=== PATIENT | male | born 1945 | race Caucasian/White ===

== ENCOUNTER → 2020-06-19 08:55 | Outpatient (BNVA) | payer MEDICARE, SELFPAY | PROVIDERS: PCP Family Medicine; Referring Provider Family Medicine; Visit Provider Nurse Practitioner Family | DX: G47.33 Obstructive sleep apnea (adult) (pediatric) (principal); E66.9 Obesity, unspecified; E11.9 Type 2 diabetes mellitus without complications; E78.5 Hyperlipidemia, unspecified; F41.8 Other specified anxiety disorders; F17.200 Nicotine dependence, unspecified, uncomplicated; Z88.0 Allergy status to penicillin; Z86.19 Personal history of other infectious and parasitic diseases; Z79.82 Long term (current) use of aspirin; Z79.84 Long term (current) use of oral hypoglycemic drugs; Z79.899 Other long term (current) drug therapy | CPT/HCPCS: 99202; Q3014 ==

== ENCOUNTER 2020-08-27 06:50 | Day surgery (SDC) | payer MEDICARE, SELFPAY ==
[2020-08-21 15:58] VITALS: BMI 39.0
--- NOTE | 2020-08-24 10:57 | HO.ANESPROP2 ---
Documented by User: Laurie Clarita 08/24/20 11:06 HPI - Anesthesia Eval Consult details Narrative: 74yo M for Blepharoplasty,bilateral upper lids No prev cataract PCP cleared [facility] Past Medical History Medical History Allergic rhinitis Anxiety Arthritis Asthma Depression Diabetes mellitus Elevated cholesterol History of back pain History of COVID-19 History of fatty infiltration of liver HTN (hypertension) Obesity SHANON (obstructive sleep apnea) Seasonal allergies Smoker Surgical History Surgical History History of cystoscopy History of left cataract extraction Hx of colonoscopy Hx of umbilical hernia repair Hx of ventral hernia repair Social History Social History Are you a primary career development associate to a significant other at home: No Do you presently have visiting nurse or other home services: Yes Smoking Status: Current every day smoker Packs Per Day: 0.5 Cigarettes Per Day: 10.0 Years Smoked: 60 Smoked in Last 30 Days: Yes Patient Interested in Nicotine Replacement: No Patient Given Instructions on How to Stop Smoking: Yes Date Education Initiated: 08/21/20 Use of substances other than those prescribed or required for medical reasons: No Have you been hit, kicked, punched, or otherwise hurt by someone within the past year? If so, by whom?: No Advance Directives: No Advance Directives Information Provided: No Advance Directives on File: No Recently lost weight without trying: No Meds Allergies Allergy/AdvReac Type Severity Reaction Status Date / Time Penicillins Allergy Intermediate RASH Verified 08/27/20 09:29 Home Medications Medication Instructions Recorded Confirmed Type albuterol sulfate 90 mcg/actuation 2 puff INHALATION Q4-6H PRN 06/19/20 08/21/20 History aerosol inhaler ammonium lactate 12 % topical cream 1 applic TOPICAL DAILY 06/19/20 08/21/20 History aspirin 81 mg tablet,delayed 81 mg PO DAILY 06/19/20 08/21/20 History release carvedilol 6.25 mg tablet 6.25 mg PO BID 06/19/20 08/21/20 History cholecalciferol (vitamin D3) 25 25 mcg PO DAILY 06/19/20 08/21/20 History mcg (1,000 unit) capsule diclofenac sodium 1 % topical gel 2 g TOPICAL QID 06/19/20 08/21/20 History diltiazem HCl 300 mg 300 mg PO DAILY 06/19/20 08/21/20 History capsule,extended release 24 hr doxazosin 8 mg tablet 8 mg PO BEDTIME 06/19/20 08/21/20 History fluticasone 250 mcg-salmeterol 50 1 inh INHALATION BID 06/19/20 08/21/20 History mcg/dose blistr powdr for inhalation hydralazine 50 mg tablet 50 mg PO TID 06/19/20 08/21/20 History latanoprost 0.005 % eye drops 1 drp OPHTHALMIC (EYE) QPM 06/19/20 08/21/20 History loratadine 10 mg tablet 10 mg PO DAILY 06/19/20 08/21/20 History metformin 500 mg tablet 500 mg PO DAILY 06/19/20 06/19/20 History metformin 500 mg tablet,extended 500 mg PO QPM 06/19/20 06/19/20 History release 24 hr Exam Exam Date and Time: August 24, 2020 1057 Height,Weight and Vital Signs: Height 5 ft 6 in Weight 109.769 kg Assessment and Plan Assessment Anesthesia Assessment: Chart Reviewed Documented by User: Esha Barger 08/27/20 09:45 PMFSH Past Medical History Medical History Allergic rhinitis Anxiety Arthritis Asthma Depression Diabetes mellitus Elevated cholesterol History of back pain History of COVID-19 History of fatty infiltration of liver HTN (hypertension) Obesity SHANON (obstructive sleep apnea) Seasonal allergies Smoker Surgical History Surgical History History of cystoscopy History of left cataract extraction Hx of colonoscopy Hx of umbilical hernia repair Hx of ventral hernia repair Social History Social History Are you a primary career development associate to a significant other at home: No Do you presently have visiting nurse or other home services: Yes Smoking Status: Current every day smoker Packs Per Day: 0.5 Cigarettes Per Day: 10.0 Years Smoked: 60 Smoked in Last 30 Days: Yes Patient Interested in Nicotine Replacement: No Patient Given Instructions on How to Stop Smoking: Yes Date Education Initiated: 08/21/20 Use of substances other than those prescribed or required for medical reasons: No Have you been hit, kicked, punched, or otherwise hurt by someone within the past year? If so, by whom?: No Advance Directives: No Advance Directives Information Provided: No Advance Directives on File: No Recently lost weight without trying: No Meds Allergies Allergy/AdvReac Type Severity Reaction Status Date / Time Penicillins Allergy Intermediate RASH Verified 08/27/20 09:29 Home Medications Medication Instructions Recorded Confirmed Type albuterol sulfate 90 mcg/actuation 2 puff INHALATION Q4-6H PRN 06/19/20 08/21/20 History aerosol inhaler ammonium lactate 12 % topical cream 1 applic TOPICAL DAILY 06/19/20 08/21/20 History aspirin 81 mg tablet,delayed 81 mg PO DAILY 06/19/20 08/21/20 History release carvedilol 6.25 mg tablet 6.25 mg PO BID 06/19/20 08/21/20 History cholecalciferol (vitamin D3) 25 25 mcg PO DAILY 06/19/20 08/21/20 History mcg (1,000 unit) capsule diclofenac sodium 1 % topical gel 2 g TOPICAL QID 06/19/20 08/21/20 History diltiazem HCl 300 mg 300 mg PO DAILY 06/19/20 08/21/20 History capsule,extended release 24 hr doxazosin 8 mg tablet 8 mg PO BEDTIME 06/19/20 08/21/20 History fluticasone 250 mcg-salmeterol 50 1 inh INHALATION BID 06/19/20 08/21/20 History mcg/dose blistr powdr for inhalation hydralazine 50 mg tablet 50 mg PO TID 06/19/20 08/21/20 History latanoprost 0.005 % eye drops 1 drp OPHTHALMIC (EYE) QPM 06/19/20 08/21/20 History loratadine 10 mg tablet 10 mg PO DAILY 06/19/20 08/21/20 History metformin 500 mg tablet 500 mg PO DAILY 06/19/20 06/19/20 History metformin 500 mg tablet,extended 500 mg PO QPM 06/19/20 06/19/20 History release 24 hr Exam Airway Mallampati Class: II TM Dist: >3cm Neck ROM: Full Partial: Upper Loose/Missing/Broken Teeth: No Heart: RRR Lungs: CTA Assessment and Plan Assessment Anesthesia Assessment: Anesthesia Plan Discussed and Chart Reviewed Final Anesthetic Review NPO: Yes ASA Class: III Final Preanesthetic Review: Meds/Allgs Chart Reviewed, Consent Obtained/Reviewed and Anes Risks/Benef Reviewed Patient Risk: Intermediate Procedure Risk: Low Anesthetic Plan Anesthetic Plan: MAC: Disposition: Standard PACU
--- NOTE | 2020-08-24 12:35 | MHC.SHP ---
Pre-Procedural Eval Section A The patient is an INPATIENT: No The History & Physical has been completed within 30 days and I have reviewed it.: Yes Section B Chief Complaint: dermatochalasis bilateral eye lids Allergies: Allergies Allergy/AdvReac Type Severity Reaction Status Date / Time Penicillins Allergy Intermediate RASH Unverified 08/21/20 10:28 Plan Diagnosis/Plan: Unchanged I have reviewed the history and physical and performed a pertinent physical examination on my patient. No changes have occurred unless specified.
[2020-08-27] MEDS: Lactated Ringers 500 ML 50 ML IV (09:30)
[2020-08-27 09:39] VITALS: BP 174/82; PULSE 60; RESP 16; TEMP 36.3; O2SAT 98
[2020-08-27 09:52] LABS: Glucose, Whole Blood 120 mg/dL (60-115)
[2020-08-27 11:30] VITALS: BP 170/84; PULSE 58; RESP 16; TEMP 36.1; O2SAT 97
--- NOTE | 2020-08-27 11:30 | HO.PNOPHT ---
Ophthalmology Procedure Procedure Date of Service: 08/27/20 Ophthalmology Viscoelastic: Not Applicable Ophthalmology Lenses: Not Applicable Procedure Notes: PREOPERATIVE DIAGNOSIS: Decreased visual field secondary to dermatochalasia POSTOPERATIVE DIAGNOSIS: Same PROCEDURE: Bilateral Blepharoplasty, upper eyelids SURGEON: Kobi Faulkner M.D. ANESTHESIA: Local with sedation ESTIMATED BLOOD LOSS: None COMPLICATIONS: None After obtaining informed consent, the patient was brought to the operating room and placed in supine position. After adequate sedation per Anesthesia, the eyes were prepped and draped in the usual sterile fashion. Attention was directed to the right eye where a double pinch test was completed to assure excess tissue was not removed from the upper lid. The margin was marked at the proposed incision sites. The left eye was done in a similar fashion. 2% Lidocaine with epinephrine was then instilled subcutaneously along the margin of the pre-marked skin incisions. #15 scalpel blade was then utilized to create the incisions. Using a combination of sharp and blunt dissection with Aj scissors, the epidermis was removed. Hemostasis was achieved with cautery. 6-0 plain suture was then utilized to close the incision site. Attention was directed to the left upper lid where subcutaneous 2% with Epinephrine Lidocaine was instilled along the pre-marked areas. A #15 scalpel blade was then utilized to create the incisions followed by sharp and blunt dissection with Aj scissors to remove the overlying epidermis. Hemostasis was achieved with cautery, followed by closure with 6-0 plain suture. The patient tolerated the procedure well. The patient will be followed up in the a.m. Topical antibiotic ointment was instilled over the incision sites and ice as tolerated for 48 hours.
[2020-08-27 11:45] VITALS: BP 151/84; PULSE 54; RESP 16; O2SAT 96
[2020-08-27 12:00] VITALS: BP 165/90; PULSE 57; RESP 16; TEMP 36.1; O2SAT 96
[2020-08-27] MEDS: Acetaminophen 325 MG TABLET 650 MG PO (12:06)
== END 2020-08-27 12:41 | disposition home or self-care (01) ==
PROVIDERS: PCP Family Medicine; Visit Provider Ophthalmology
PROC: (CPT 15823; principal; 2020-08-27 10:10)
DX: H02.834 Dermatochalasis of left upper eyelid (principal); H02.831 Dermatochalasis of right upper eyelid; H40.051 Ocular hypertension, right eye; H40.9 Unspecified glaucoma; Z83.511 Family history of glaucoma; I10 Essential (primary) hypertension; H35.031 Hypertensive retinopathy, right eye; Z96.1 Presence of intraocular lens; E11.9 Type 2 diabetes mellitus without complications; F17.200 Nicotine dependence, unspecified, uncomplicated; Z79.82 Long term (current) use of aspirin; Z79.84 Long term (current) use of oral hypoglycemic drugs; Z79.899 Other long term (current) drug therapy; Z88.0 Allergy status to penicillin
CPT/HCPCS: 15823; 82947; J3010

== ENCOUNTER 2020-09-17 11:21 | Outpatient (REF) | payer MEDICARE, SELFPAY ==
--- NOTE | 2020-09-17 12:22 | XR_ITS ---
EXAMINATION: XR LUMBOSACRAL SPINE WITH OBLIQUES CLINICAL INFORMATION: Low back pain COMPARISON: 05/26/2018 TECHNIQUE: AP, both oblique, and lateral views of the lumbar spine. Lateral view of the lumbosacral junction. FINDINGS: No acute fracture or traumatic malalignment. Vertebral body heights maintained. Minimal dextroconvex lumbar scoliosis, apex right at L2-L3. Endplate osteophytes present throughout the lumbar spine with mild loss of disc space height at L5-S1 and L3-L4. Moderate facet arthropathy at L4-L5 and L5-S1. Bilateral sacroiliac arthrosis. Paraspinal soft tissues unremarkable. XR/XR lumbar spine 4V min IMPRESSION: No acute fracture or traumatic malalignment. Lumbar spondylosis as described.
== END 2020-09-17 11:22 | disposition home or self-care (01) ==
LOC: HO.XRAY 11:21
PROVIDERS: PCP Family Medicine; Visit Provider Anesthesiology
DX: M54.5 Low back pain (principal); G58.8 Other specified mononeuropathies
CPT/HCPCS: 72110; 99212

== ENCOUNTER → 2020-10-02 19:21 | Outpatient (REF) | payer MEDICARE, SELFPAY | LOC: HO.SL 19:21 | PROVIDERS: PCP Family Medicine; Visit Provider Nurse Practitioner Family | DX: G47.33 Obstructive sleep apnea (adult) (pediatric) (principal); F41.9 Anxiety disorder, unspecified; I10 Essential (primary) hypertension | CPT/HCPCS: 95811 ==

== ENCOUNTER → 2020-10-23 10:49 | Outpatient (BNVA) | payer MEDICARE, SELFPAY | PROVIDERS: PCP Family Medicine; Visit Provider Nurse Practitioner Family ==

== ENCOUNTER → 2020-12-13 13:20 | Outpatient (BNVA) | payer MEDICARE, SELFPAY | PROVIDERS: PCP Family Medicine; Visit Provider Anesthesiology | DX: M54.5 Low back pain (principal); M47.816 Spondylosis without myelopathy or radiculopathy, lumbar region | CPT/HCPCS: 99212 ==

== ENCOUNTER 2020-12-21 14:00 | Outpatient (RCR) | payer MEDICARE, SELFPAY ==
--- NOTE | 2020-11-15 18:25 | MHC.PT.EP ---
[facility] [place] Office [place] Office [place] Office [address] Manuel Velásquez [address] [phone] F: [phone] F: [phone] F: [phone] F: [phone] Physical Therapy Plan of Care Date of Evaluation: 11/15/20 Date of Surgery: N/A Diagnosis: low back pain Assessment: With clarification part of pt's pain appears to be localized to the L flank. He does have a history of nephrolithiasis and may benefit from referral to spiral tube winder or diagnostic ultrasound to rule this out. pt also presents w/ abnormal and inconsistent neurological symptoms. When sitting w/ foot on the ground the pt's L LE will begin bouncing furiously and he is unable to stop it. pt had (-) clonus, (-) Babinski; however, w/ neurological testing his L hip and knee flex suddenly and rapidly w/ multiple attempts. pt may benefit from seeing neurologist to rule out potential degenerative neurological disease. pt presents to physical therapy with pain, decreased range of motion, decreased strength, impaired functional mobility, impaired postural awareness, and gait deviations. pt is a fair candidate for skilled PT due to age, potential remediation of impairments, typical disease/condition progression and prognosis, comorbidities, and motivation. pt would benefit from tailored strengthening and stretching exercise program, functional training, gait training, postural re-training, neuromuscular re-education, modalities as needed for pain, equipment safety demonstration. Frequency and Duration: The patient will be seen 2x/wk for 4 wks Short Term Goals: pt will be I w/ HEP to promote self-management of condition. pt will improve B hip ABD strength by 1 MMT grade to normalize gait pattern on even ground. Fci Goals: pt will report a statistically significant improvement in self-reported outcome measure, [place], to promote return to PLOF. pt will report <1/10 LBP and B hip pain w/ standing for >30 minutes to promote participation in ADLs. Treatment Plan: Modalities to reduce pain, spasms and effusion. Manual therapy to restore motion and function. Therapeutic exercise to improve strength and flexibility. Neuromuscular re-education for posture and balance. Therapeutic activities to return to functional activities of daily living. Electronically signed by: Adriana Pope PT, DPT Please sign and return to therapist. Thank you for your referral.
--- NOTE | 2020-12-21 14:59 | MHC.PT.DC ---
[facility] [place] Office [place] Office [place] Office [address] Manuel Velásquez [address] [phone] F: [phone] F: [phone] F: [phone] F: [phone] Physical Therapy Discharge Report Diagnosis: low back pain Date of Surgery: N/A Date of Evaluation: 11/15/20 Date of Discharge: 12/21/20 Treatments to Date: 8 Cancellations to Date: 0 No Shows to Date: 0 Discharge Status: Improved Function Independent with HEP Discharge Summary: The patient was reporting an overall improvement in his back pain; however, today his pain was exacerbated. He had poorer tolerance of today's visit compared to previous visits. Overall, he stated he feels his back pain is better and he can move around more. He is independent with his exercise program and is able to guide himself through it. He was given an updated handout and has the appropriate therabands to continue to maintain the gains he has made at home. He is discharged from this physical therapy plan of care at this time. Electronically signed by: Adriana Pope PT, DPT Please sign and return to therapist. Thank you for your referral.
== END 2020-12-21 15:00 | disposition other institution (70) ==
LOC: HO.PT 14:00
PROVIDERS: PCP Family Medicine; Visit Provider Anesthesiology
DX: M54.5 Low back pain (principal)
CPT/HCPCS: 97110; 97162; 97530

== ENCOUNTER 2021-01-15 10:41 | Outpatient (REF) | payer MEDICARE, SELFPAY ==
[2021-01-15 12:29] LABS: MANUAL DIFF FLAG NO
[2021-01-15 12:40] LABS: Basophils Percent Auto 0.4 % (0-2); Eosinophils Absolute Auto 0.4 X10*3/uL (0.0-0.4); Eosinophils Percent Auto 4.4 % (0-4); Hematocrit 45.2 % (42-52); Imm Gran Abs Auto 0.04 X10*3/uL (0.00-0.03); Imm Gran Pct Auto 0.4 % (0.0-0.4); Lymphocytes Absolute Auto 1.8 X10*3/uL (1.2-4.9); Lymphocytes Percent Auto 19.2 % (20-40); Mean Corpuscular HGB Conc 33.2 g/dl (31.0-36.0); Mean Corpuscular Hemoglobin 30.7 pg (27.0-33.0); Mean Corpuscular Volume 92.6 fL (80-98); Mean Platelet Volume 12.5 fL (9.4-12.4); Monocytes Absolute Auto 0.8 X10*3/uL (0.1-1.2); Monocytes Percent Auto 8.6 % (2-11); Neutrophils Absolute Auto 6.1 X10*3/uL (2.0-8.3); Platelet Count 156 X10*3/uL (160-400); Red Blood Count 4.88 X10*6/uL (4.60-5.80); Red Cell Distribution Width 13.6 % (11.0-16.0); White Blood Count 9.1 X10*3/uL (4.8-10.8)
[2021-01-15 13:21] LABS: Alanine Aminotransferase 16 U/L (0-40); Alkaline Phosphatase 74 U/L (39-117); Anion Gap 11 (12-20); Aspartate Amino Transferase 16 U/L (5-37); Bilirubin Total 0.7 mg/dL (0.0-1.0); Blood Urea Nitrogen 18 mg/dL (9-16); Calcium 9.1 mg/dL (8.4-10.2); Carbon Dioxide 27 mmol/L (22-29); Chloride 106 mmol/L (96-108); Estimated Glomerular Filt Rate > 60; Glucose Random 116 mg/dL (60-115); Iron 92 mcg/dL (45-160); Percent Iron Saturation 39 % (15-50); Sodium 140 mmol/L (135-145); Total Iron Binding Capacity 235 mcg/dL (228-428); Total Protein 6.5 g/dL (6.5-8.0); Unsaturated Iron Binding 143 ug/dL
[2021-01-15 13:31] LABS: Ferritin 174 ng/mL (20-250); TSH reflex Free T4 0.65 uIU/mL (0.32-4.0)
[2021-01-15 13:55] LABS: Folate 10.4 ng/mL (> or = 4.0); Vitamin B12 241 pg/mL (200-900)
[2021-01-17 19:06] LABS: Transferrin 197 mg/dL (188-341)
== END 2021-01-15 10:42 | disposition home or self-care (01) ==
LOC: HO.LAB 10:41
PROVIDERS: PCP Family Medicine; Visit Provider Nurse Practitioner Family
DX: F32.9 Major depressive disorder, single episode, unspecified (principal); F41.9 Anxiety disorder, unspecified; E11.9 Type 2 diabetes mellitus without complications; I10 Essential (primary) hypertension; G47.33 Obstructive sleep apnea (adult) (pediatric); G47.61 Periodic limb movement disorder; F17.210 Nicotine dependence, cigarettes, uncomplicated; Z79.899 Other long term (current) drug therapy; Z79.84 Long term (current) use of oral hypoglycemic drugs
CPT/HCPCS: 36415; 80053; 82607; 82728; 82746; 83540; 84443; 84466; 85025; 99212

== ENCOUNTER 2021-01-24 16:57 | Emergency (ER) | payer MEDICARE, SELFPAY ==
--- NOTE | 2021-01-24 | ECG_ITS ---
Test Reason : BRADYCARDIA Blood Pressure : / mmHG Vent. Rate : 051 BPM Atrial Rate : 051 BPM P-R Int : 276 ms QRS Dur : 114 ms QT Int : 418 ms P-R-T Axes : 003 -49 000 degrees QTc Int : 385 ms Sinus bradycardia with 1st degree A-V block Left anterior fascicular block Minimal voltage criteria for LVH, may be normal variant Septal infarct (cited on or before 24-JAN-2021) Abnormal ECG When compared with ECG of 19-OCT-2018 14:34, No significant change was found Referred By: Generic ED Physician Electronically Signed By:PRADEEP ANDREA MD
[2021-01-24 17:39] VITALS: BP 182/75; PULSE 56; RESP 18; TEMP 37; O2SAT 97; BMI 40.3
[2021-01-24 20:50] VITALS: BP 187/76; PULSE 50; RESP 16; O2SAT 99
[2021-01-24 21:06] LABS: MANUAL DIFF FLAG NO
[2021-01-24 21:09] LABS: Basophils Percent Auto 0.3 % (0-2); Eosinophils Absolute Auto 0.4 X10*3/uL (0.0-0.4); Eosinophils Percent Auto 3.8 % (0-4); Hematocrit 45.6 % (42-52); Hemoglobin 15.2 g/dl (14.0-18.0); Imm Gran Abs Auto 0.03 X10*3/uL (0.00-0.03); Imm Gran Pct Auto 0.3 % (0.0-0.4); Lymphocytes Percent Auto 21.1 % (20-40); Mean Corpuscular HGB Conc 33.3 g/dl (31.0-36.0); Mean Corpuscular Hemoglobin 30.8 pg (27.0-33.0); Mean Corpuscular Volume 92.3 fL (80-98); Mean Platelet Volume 12.1 fL (9.4-12.4); Monocytes Absolute Auto 0.8 X10*3/uL (0.1-1.2); Monocytes Percent Auto 8.5 % (2-11); Neutrophils Absolute Auto 6.3 X10*3/uL (2.0-8.3); Platelet Count 148 X10*3/uL (160-400); Red Blood Count 4.94 X10*6/uL (4.60-5.80); Red Cell Distribution Width 13.3 % (11.0-16.0); White Blood Count 9.5 X10*3/uL (4.8-10.8)
[2021-01-24 22:01] LABS: Alanine Aminotransferase 13 U/L (0-40); Albumin Level 4.3 g/dL (3.5-5.0); Alkaline Phosphatase 96 U/L (39-117); Anion Gap 9 (12-20); Aspartate Amino Transferase 18 U/L (5-37); Bilirubin Total 0.4 mg/dL (0.0-1.0); Blood Urea Nitrogen 18 mg/dL (9-16); Calcium 8.9 mg/dL (8.4-10.2); Carbon Dioxide 28 mmol/L (22-29); Chloride 107 mmol/L (96-108); Creatinine Clr Calc Pharmacy 95.5; Estimated Glomerular Filt Rate > 60; Glucose Random 111 mg/dL (60-115); Sodium 140 mmol/L (135-145)
[2021-01-24 23:42] VITALS: BP 162/75; PULSE 58; RESP 15; O2SAT 95
--- NOTE | 2021-01-24 23:58 | ED.GENADULT ---
HPI - General Adult General Chief complaint: General Medical Stated complaint: tooth pain, low heart rate Time Seen by Provider: 01/24/21 23:58 History of Present Illness HPI narrative: Patient is a 75-year-old male with a history of hypertension, diabetes, hyperlipidemia. Patient presented today because the dentist told him to come in. He was getting dental cleaning done when they noted patient had a low heart rate. Patient denies any new dizziness. No chest pain or shortness of breath no diaphoresis. No changes in medication. Patient from home. Related Data Home Medications Medication Instructions Recorded Confirmed albuterol sulfate 90 mcg/actuation 2 puff INHALATION Q4-6H PRN 06/19/20 01/15/21 aerosol inhaler ammonium lactate 12 % topical cream 1 applic TOPICAL DAILY 06/19/20 01/15/21 aspirin 81 mg tablet,delayed 81 mg PO DAILY 06/19/20 01/15/21 release carvedilol 6.25 mg tablet 6.25 mg PO BID 06/19/20 01/15/21 cholecalciferol (vitamin D3) 25 25 mcg PO DAILY 06/19/20 01/15/21 mcg (1,000 unit) capsule diclofenac sodium 1 % topical gel 2 g TOPICAL QID 06/19/20 01/15/21 diltiazem HCl 300 mg 300 mg PO DAILY 06/19/20 01/15/21 capsule,extended release 24 hr doxazosin 8 mg tablet 8 mg PO BEDTIME 06/19/20 01/15/21 fluticasone 250 mcg-salmeterol 50 1 inh INHALATION BID 06/19/20 01/15/21 mcg/dose blistr powdr for inhalation hydralazine 50 mg tablet 50 mg PO TID 06/19/20 01/15/21 latanoprost 0.005 % eye drops 1 drp OPHTHALMIC (EYE) QPM 06/19/20 01/15/21 loratadine 10 mg tablet 10 mg PO DAILY 06/19/20 01/15/21 metformin 500 mg tablet 500 mg PO DAILY 06/19/20 01/15/21 metformin 500 mg tablet,extended 500 mg PO QPM 06/19/20 01/15/21 release 24 hr Allergies Allergy/AdvReac Type Severity Reaction Status Date / Time Penicillins Allergy Intermediate RASH Verified 12/13/20 13:51 Review of Systems Review of Systems: Constitutional: No Weight loss, No Fever, No Chills, No Night Sweats, No Fatigue, No Malaise ENT/Mouth: No Hearing loss, No Ear Pain, No Nasal Congestion, No Sinus Pain, No Hoarseness, No sore throat, No Rhinorrhea, No Swallowing Difficulty Eyes: No Eye Pain, No Swelling, No Redness, No Foreign Body, No Discharge, No Vision Changes Cardiovascular: No Chest Pain, No SOB, No Dyspnea on Exertion, No Orthopnea, No Edema, No Palpitations Respiratory: No Cough, No Sputum, No Wheezing, No Smoke Exposure, No Dyspnea Gastrointestinal: No Nausea, No Vomiting, No Diarrhea, No Constipation, No abdominal Pain, No Hematochezia, No Melena Genitourinary: no irregular bleeding, No Dysuria, No Urinary Frequency, No Hematuria, No Urinary Incontinence, No Urgency, No Flank Pain, No Urinary Flow Changes, No Hesitancy Musculoskeletal: No joint pain, No Myalgias, No Joint Swelling Skin: No Skin Lesions, No rash Neuro: No Weakness, No Numbness, No Paresthesias, No Loss of Consciousness, No Dizziness, No Headache Psych: No Anxiety/Panic, No Depression, No SI/HI/AH/VH, No Social Issues, Heme/Lymph: No Bruising, No Bleeding,No Lymphadenopathy Endocrine: No Polyuria, No Polydipsia, No Temperature Intolerance PMFSH Past Medical History Medical History Allergic rhinitis Anxiety Arthritis Asthma Depression Diabetes mellitus Elevated cholesterol History of back pain History of COVID-19 History of fatty infiltration of liver HTN (hypertension) Low back pain Obesity SHANON (obstructive sleep apnea) Seasonal allergies Smoker Spondylosis of lumbar region without myelopathy or radiculopathy Surgical History History of cystoscopy History of left cataract extraction Hx of colonoscopy Hx of umbilical hernia repair Hx of ventral hernia repair Social History Social History Are you a primary health care recruiter to a significant other at home: No Do you presently have visiting nurse or other home services: Yes Cigarette Packs Per Day: 0.5 Cigarettes Per Day: 10.0 Years Smoked: 60 Advance Directives: No Advance Directives Information Provided: No Physical Exam Vital Signs: Vital Signs: Last Vital Signs Temp 98.6 F 01/24/21 17:39 Pulse 54 01/25/21 00:00 Resp 15 01/25/21 00:00 BP 181/80 H 01/25/21 00:00 Pulse Ox 97 01/25/21 00:00 Body Mass Index 40.3 Appearance: Alert. Oriented X3. No acute distress. Eyes: Pupils equal, round and reactive to light. ENT: Pharynx normal. Neck: Normal inspection. Neck supple. No lymph nodes noted. No crepitus CVS: Normal heart rate and rhythm. Pulses normal. Normal S1 and S2 Respiratory: No respiratory distress. Breath sounds normal. No Wheezing. No rales Abdomen: Soft and nontender. No rigidity. No distention. good BS x4 Skin: Skin warm and dry. Normal skin color. Normal skin turgor. Extremities: No lower extremity edema. Neurovascular intact to all extremities. No Lacerations. No Rash Neuro: Oriented X 3. No motor deficit. No sensory deficit. Moving all extermities. No slurred speech Medical Decision Making MDM Narrative Medical decision making narrative: Patient on carvedilol. EKG is unchanged from a previous EKG from 2019. Heart rate was 50 then. Patient has no new dizziness. No symptoms that are new. Patient went to see the dentist noted to have the low heart rate was turned away. The low heart rate is probably results from the beta jack. Patient will need follow-up on an outpatient basis. Currently in stable condition. Electrolytes are unremarkable CBC was normal. Lab Data Result diagrams: 01/24/21 20:56 01/24/21 20:56 Labs: Lab Results 01/24/21 01/24/21 Range/Units 20:56 20:56 WBC 9.5 (4.8-10.8) X10*3/uL RBC 4.94 (4.60-5.80) X10*6/uL Hgb 15.2 (14.0-18.0) g/dl Hct 45.6 (42-52) % MCV 92.3 (80-98) fL MCH 30.8 (27.0-33.0) pg MCHC 33.3 (31.0-36.0) g/dl RDW 13.3 (11.0-16.0) % Plt Count 148 L (160-400) X10*3/uL MPV 12.1 (9.4-12.4) fL Immature Gran % (Auto) 0.3 (0.0-0.4) % Neut % (Auto) 66.0 (45-73) % Lymph % (Auto) 21.1 (20-40) % [place] % (Auto) 8.5 (2-11) % Eos % (Auto) 3.8 (0-4) % Baso % (Auto) 0.3 (0-2) % Lymph # (Auto) 2.0 (1.2-4.9) X10*3/uL [place] # (Auto) 0.8 (0.1-1.2) X10*3/uL Eos # (Auto) 0.4 (0.0-0.4) X10*3/uL Baso # (Auto) 0.0 (0.0-0.2) X10*3/uL Abs Immat Gran (auto) 0.03 (0.00-0.03) X10*3/uL Absolute Neuts (auto) 6.3 (2.0-8.3) X10*3/uL Absolute Nucleated RBC 0.000 (0.0-0.012) X10*3/uL Nucleated RBC % (auto) 0.0 (0.0-0.2) /100WBC Sodium 140 (135-145) mmol/L Potassium 4.0 (3.3-5.1) mmol/L Chloride 107 (96-108) mmol/L Carbon Dioxide 28 (22-29) mmol/L Anion Gap 9 L (12-20) BUN 18 H (9-16) mg/dL Creatinine 0.79 (0.5-1.4) mg/dL Estim Creat Clear Calc 95.5 Estimated GFR > 60 Random Glucose 111 (60-115) mg/dL Calcium 8.9 (8.4-10.2) mg/dL Total Bilirubin 0.4 (0.0-1.0) mg/dL AST 18 (5-37) U/L ALT 13 (0-40) U/L Alkaline Phosphatase 96 D (39-117) U/L Total Protein 7.0 (6.5-8.0) g/dL Albumin 4.3 (3.5-5.0) g/dL ECG Data Interpretation: The patient's EKG showed a sinus rhythm heart rate is 50. ND is prolonged. This is old. QRS is normal QT within normal limits. There is nonspecific T-wave flattening noted diffusely. EKG is not changed from another EKG that was done in October of 2018. Heart rate is the same. Discharge Plan Discharge Prescriptions: No Action fluticasone propion-salmeterol [Advair Diskus] 250-50 mcg/dose blister with device 1 inh inhalation BID RF: 0 ammonium lactate 12 % cream 1 applic topical DAILY RF: 0 aspirin [Adult Aspirin Regimen] 81 mg tablet,delayed release (DR/EC) 81 mg PO DAILY RF: 0 carvedilol 6.25 mg tablet 6.25 mg PO BID RF: 0 diltiazem HCl 300 mg capsule,extended release 24hr 300 mg PO DAILY RF: 0 doxazosin 8 mg tablet 8 mg PO BEDTIME RF: 0 hydralazine 50 mg tablet 50 mg PO TID RF: 0 latanoprost 0.005 % drops 1 drp ophthalmic (eye) QPM RF: 0 loratadine [Allergy Relief (loratadine)] 10 mg tablet 10 mg PO DAILY RF: 0 metformin 500 mg tablet 500 mg PO DAILY RF: 0 metformin 500 mg tablet extended release 24 hr 500 mg PO QPM RF: 0 albuterol sulfate [Proventil HFA] 90 mcg/actuation HFA aerosol inhaler 2 puff inhalation Q4-6H PRN (Reason: Wheezing) RF: 0 cholecalciferol (vitamin D3) 25 mcg (1,000 unit) capsule 25 mcg PO DAILY RF: 0 diclofenac sodium [Voltaren] 1 % gel 2 g topical QID RF: 0
[2021-01-25] VITALS: BP 181/80; PULSE 54; RESP 15; O2SAT 97
== END 2021-01-25 02:01 | disposition home or self-care (01) ==
PROVIDERS: Emergency Provider Emergency Medicine Emergency Medical Services; PCP Family Medicine
DX: R00.1 Bradycardia, unspecified (principal); K08.89 Other specified disorders of teeth and supporting structures; I10 Essential (primary) hypertension; E11.9 Type 2 diabetes mellitus without complications; J45.909 Unspecified asthma, uncomplicated; Z79.82 Long term (current) use of aspirin; Z79.84 Long term (current) use of oral hypoglycemic drugs; Z79.899 Other long term (current) drug therapy
CPT/HCPCS: 36415; 80053; 85025; 93005; 99283; 99284

== ENCOUNTER → 2021-04-23 10:07 | Outpatient (BNVA) | payer MEDICARE, SELFPAY | PROVIDERS: PCP Family Medicine; Visit Provider Nurse Practitioner Family | CPT/HCPCS: Q3014 ==

== ENCOUNTER → 2021-07-16 09:11 | Outpatient (BNVA) | payer MEDICARE, SELFPAY | PROVIDERS: PCP Family Medicine; Referring Provider Family Medicine; Visit Provider Nurse Practitioner Family | DX: G47.33 Obstructive sleep apnea (adult) (pediatric) (principal); G47.61 Periodic limb movement disorder | CPT/HCPCS: 99212 ==

== ENCOUNTER 2021-07-25 17:26 | Emergency (ER) | payer MEDICARE, SELFPAY ==
[2021-07-25 17:41] VITALS: BP 197/93; PULSE 61; RESP 15; TEMP 36.8; O2SAT 98
[2021-07-25 18:01] VITALS: BP 197/73; PULSE 59; RESP 20; O2SAT 99; BMI 28.7
[2021-07-25 18:17] VITALS: BP 200/86; PULSE 56
[2021-07-25 18:17] LABS: MANUAL DIFF FLAG NO
[2021-07-25] MEDS: hydrALAZINE HCl 50 MG TABLET PO (18:17)
[2021-07-25 18:36] LABS: Basophils Absolute Auto 0.1 X10*3/uL (0.0-0.2); Basophils Percent Auto 0.7 % (0-2); Eosinophils Absolute Auto 0.3 X10*3/uL (0.0-0.4); Eosinophils Percent Auto 3.5 % (0-4); Hematocrit 45.7 % (42.0-52.0); Hemoglobin 15.6 g/dl (14.0-18.0); Imm Gran Abs Auto 0.08 X10*3/uL (0.00-0.03); Imm Gran Pct Auto 0.9 % (0.0-0.4); Lymphocytes Percent Auto 21.9 % (20-40); Mean Corpuscular HGB Conc 34.1 g/dl (31.0-36.0); Mean Corpuscular Hemoglobin 31.5 pg (27.0-33.0); Mean Corpuscular Volume 92.3 fL (80.0-98.0); Mean Platelet Volume 12.8 fL (9.4-12.4); Monocytes Absolute Auto 0.7 X10*3/uL (0.1-1.2); Monocytes Percent Auto 7.6 % (2-11); Neutrophils Absolute Auto 5.8 x10*3/uL (2.0-8.3); Neutrophils Percent Auto 65.4 % (45-73); Platelet Count 139 X10*3/uL (160-400); Red Blood Count 4.95 X10*6/uL (4.60-5.80); Red Cell Distribution Width 13.7 % (11.0-16.0); White Blood Count 8.9 X10*3/uL (4.8-10.8)
[2021-07-25 18:40] LABS: Anion Gap 12 (12-20); Blood Urea Nitrogen 13 mg/dL (9-16); Calcium 9.8 mg/dL (8.4-10.2); Carbon Dioxide 29 mmol/L (22-29); Chloride 105 mmol/L (96-108); Creatinine Clr Calc Pharmacy 93.8; Estimated Glomerular Filt Rate > 60; Glucose Random 110 mg/dL (60-115); Potassium 4.3 mmol/L (3.3-5.1); Sodium 142 mmol/L (135-145)
--- NOTE | 2021-07-25 18:44 | ED.CHESTPAIN ---
HPI - Chest Pain General Chief Complaint: Chest Pain Stated Complaint: HIGH BP PER EMS Time Seen by Provider: 07/25/21 17:35 Source: patient Mode of arrival: ambulatory Limitations: no limitations History of Present Illness HPI narrative: Patient's history of hypertension noticed elevated blood pressure in 200 range earlier today felt like little heavy on the head patient denies any chest pain or shortness of breath or arm pain last time blood pressure medication was changed was 3 months ago patient taking his medicine regularly Related Data Home Medications Medication Instructions Recorded Confirmed albuterol sulfate 90 mcg/actuation 2 puff INHALATION Q4-6H PRN 06/19/20 07/16/21 aerosol inhaler (Proventil HFA) ammonium lactate 12 % topical cream 1 applic TOPICAL DAILY 06/19/20 07/16/21 aspirin 81 mg tablet,delayed 81 mg PO DAILY 06/19/20 07/16/21 release (Adult Aspirin Regimen) carvedilol 6.25 mg tablet 6.25 mg PO BID 06/19/20 07/16/21 cholecalciferol (vitamin D3) 25 25 mcg PO DAILY 06/19/20 07/16/21 mcg (1,000 unit) capsule diclofenac sodium 1 % topical gel 2 g TOPICAL QID 06/19/20 07/16/21 (Voltaren) diltiazem HCl 300 mg 300 mg PO DAILY 06/19/20 07/16/21 capsule,extended release 24 hr doxazosin 8 mg tablet 8 mg PO BEDTIME 06/19/20 07/16/21 fluticasone 250 mcg-salmeterol 50 1 inh INHALATION BID 06/19/20 07/16/21 mcg/dose blistr powdr for inhalation (Advair Diskus) hydralazine 50 mg tablet 50 mg PO TID 06/19/20 07/16/21 latanoprost 0.005 % eye drops 1 drp OPHTHALMIC (EYE) QPM 06/19/20 07/16/21 loratadine 10 mg tablet (Allergy 10 mg PO DAILY 06/19/20 07/16/21 Relief (loratadine)) metformin 500 mg tablet 500 mg PO DAILY 06/19/20 07/16/21 metformin 500 mg tablet,extended 500 mg PO QPM 06/19/20 07/16/21 release 24 hr Previous Rx's Medication Instructions Recorded losartan 50 mg-hydrochlorothiazide 1 tab PO DAILY #30 tab 07/25/21 12.5 mg tablet Allergies Allergy/AdvReac Type Severity Reaction Status Date / Time Penicillins Allergy Intermediate RASH Verified 07/16/21 09:33 Review of Systems Review of Systems: Yes all other systems are reviewed and are negative [facility] Past Medical History Medical History Allergic rhinitis Anxiety Arthritis Asthma Depression Diabetes mellitus Elevated cholesterol History of back pain History of COVID-19 History of fatty infiltration of liver HTN (hypertension) Low back pain Obesity SHANON (obstructive sleep apnea) Seasonal allergies Smoker Spondylosis of lumbar region without myelopathy or radiculopathy Surgical History History of cystoscopy History of left cataract extraction Hx of colonoscopy Hx of umbilical hernia repair Hx of ventral hernia repair Family History Family History Mother No problems noted. Father No problems noted. Brother CAD (coronary artery disease) Social History Social History Are you a primary special needs caregiver to a significant other at home: No Do you presently have visiting nurse or other home services: Yes Alcohol intake: never Patient Tobacco Use Status: Current everyday Tobacco user Cigarette Packs Per Day: 0.5 Cigarettes Per Day: 10.0 Years Smoked: 60 +/- Advance Directives: No Advance Directives Information Provided: Yes Physical Exam Vital Signs: Vital Signs: Last Vital Signs Temp 98 F 07/25/21 19:09 Pulse 57 07/25/21 19:57 Resp 18 07/25/21 19:09 BP 191/93 H 07/25/21 19:57 Pulse Ox 98 07/25/21 19:09 BMI result Body Mass Index 28.7 Appearance: Alert. Oriented X3. No acute distress. Eyes: PERRLA, ENT: Pharynx normal. Oral Mucosa moist Neck: Normal inspection. Neck supple. CVS: Normal heart rate and rhythm. Pulses normal. Respiratory: No respiratory distress. Equal air entry bilateral, no wheezing/rales/rhonchi Abdomen: Soft and nontender. Bowel sounds are present, no mass palpable, no CVA tenderness Skin: Skin warm and dry. Normal skin color. Normal skin turgor. Extremities: No lower extremity edema. No calf tenderness Neuro: Oriented X 3. No motor deficit. No sensory deficit.No cerebellar signs , cranial nerves II-XII intact MDM - Chest Pain MDM Narrative Medical decision making narrative: Patient with hypertension on hydralazine Coreg and diltiazem blood pressure still not control in 200 range using been a cm in the past not sure why not taking at this time. Extra dose of hydralazine was given in the ER along with losartan p.o. blood pressure improved discharge patient home on losartan with hydrochlorothiazide daily advised to see his loading shovel oiler/PCP as scheduled tomorrow Lab Data Attestation: I reviewed the patient's lab results. Result diagrams: 07/25/21 18:12 07/25/21 18:12 Labs: Lab Results 07/25/21 07/25/21 Range/Units 18:12 18:12 WBC 8.9 (4.8-10.8) X10*3/uL RBC 4.95 (4.60-5.80) X10*6/uL Hgb 15.6 (14.0-18.0) g/dl Hct 45.7 (42.0-52.0) % MCV 92.3 (80.0-98.0) fL MCH 31.5 (27.0-33.0) pg MCHC 34.1 (31.0-36.0) g/dl RDW 13.7 (11.0-16.0) % Plt Count 139 L (160-400) X10*3/uL MPV 12.8 H (9.4-12.4) fL Immature Gran % (Auto) 0.9 H (0.0-0.4) % Neut % (Auto) 65.4 (45-73) % Lymph % (Auto) 21.9 (20-40) % Grady % (Auto) 7.6 (2-11) % Eos % (Auto) 3.5 (0-4) % Baso % (Auto) 0.7 (0-2) % Lymph # (Auto) 2.0 (1.2-4.9) X10*3/uL Grady # (Auto) 0.7 (0.1-1.2) X10*3/uL Eos # (Auto) 0.3 (0.0-0.4) X10*3/uL Baso # (Auto) 0.1 (0.0-0.2) X10*3/uL Abs Immat Gran (auto) 0.08 H (0.00-0.03) X10*3/uL Absolute Neuts (auto) 5.8 (2.0-8.3) x10*3/uL Absolute Nucleated RBC 0.000 (0.0-0.012) X10*3/uL Nucleated RBC % (auto) 0.0 (0.0-0.2) /100WBC Sodium 142 (135-145) mmol/L Potassium 4.3 (3.3-5.1) mmol/L Chloride 105 (96-108) mmol/L Carbon Dioxide 29 (22-29) mmol/L Anion Gap 12 (12-20) BUN 13 (9-16) mg/dL Creatinine 0.77 (0.5-1.4) mg/dL Estim Creat Clear Calc 93.8 Estimated GFR > 60 Random Glucose 110 (60-115) mg/dL Calcium 9.8 D (8.4-10.2) mg/dL Discharge Plan Discharge Clinical Impression: HTN (hypertension) Patient Disposition: Home, Self-Care Instructions: Chronic Hypertension (ED) Additional Instructions: Continue taking her medication as prescribed Start taking losartan HCTZ for further control Discussed with your PCP loading shovel oiler tomorrow about this new medication. Prescriptions: New losartan-hydrochlorothiazide 50-12.5 mg tablet 1 tab PO DAILY Qty: 30 RF: 0 No Action fluticasone propion-salmeterol [Advair Diskus] 250-50 mcg/dose blister with device 1 inh inhalation BID RF: 0 ammonium lactate 12 % cream 1 applic topical DAILY RF: 0 aspirin [Adult Aspirin Regimen] 81 mg tablet,delayed release (DR/EC) 81 mg PO DAILY RF: 0 carvedilol 6.25 mg tablet 6.25 mg PO BID RF: 0 diltiazem HCl 300 mg capsule,extended release 24hr 300 mg PO DAILY RF: 0 doxazosin 8 mg tablet 8 mg PO BEDTIME RF: 0 hydralazine 50 mg tablet 50 mg PO TID RF: 0 latanoprost 0.005 % drops 1 drp ophthalmic (eye) QPM RF: 0 loratadine [Allergy Relief (loratadine)] 10 mg tablet 10 mg PO DAILY RF: 0 metformin 500 mg tablet 500 mg PO DAILY RF: 0 metformin 500 mg tablet extended release 24 hr 500 mg PO QPM RF: 0 albuterol sulfate [Proventil HFA] 90 mcg/actuation HFA aerosol inhaler 2 puff inhalation Q4-6H PRN (Reason: Wheezing) RF: 0 cholecalciferol (vitamin D3) 25 mcg (1,000 unit) capsule 25 mcg PO DAILY RF: 0 diclofenac sodium [Voltaren] 1 % gel 2 g topical QID RF: 0
[2021-07-25 19:09] VITALS: BP 191/82; PULSE 53; RESP 18; TEMP 36.6; O2SAT 98
--- NOTE | 2021-07-25 19:10 | PC.NURSE ---
pt remains hypertensive. ambulated to bathroom without sound assistant. pt denies pain at this time.
[2021-07-25 19:57] VITALS: BP 191/93; PULSE 57
[2021-07-25] MEDS: Losartan Potassium 50 MG TABLET PO (19:57)
== END 2021-07-25 20:25 | disposition home or self-care (01) ==
PROVIDERS: Emergency Provider Internal Medicine
DX: I10 Essential (primary) hypertension (principal); E11.9 Type 2 diabetes mellitus without complications; F17.200 Nicotine dependence, unspecified, uncomplicated; Z79.899 Other long term (current) drug therapy; Z79.82 Long term (current) use of aspirin
CPT/HCPCS: 36415; 80048; 85025; 99283; 99284

== ENCOUNTER 2021-10-28 15:46 | Outpatient (REF) | payer MEDICARE, SELFPAY ==
--- NOTE | ~2021-10-28 | CT_ITS ---
EXAMINATION: CT CHEST SCREENING CLINICAL INFORMATION: Smoking history. COMPARISON: Previous chest CT most recent February 2020 TECHNIQUE: Multidetector volumetric CT imaging of the chest is performed without contrast using low dose technique. Additional 2-D coronal and sagittal reformatted images and axial 3-D maximum intensity projection (MIP) images are generated on the CT workstation. This CT examination was performed using dose optimization techniques as appropriate, variously including the following: *Automated exposure control *Adjustment of mA and/or kV according to patient size (this includes techniques or standardized protocols for targeted exams where dose is matched to indication/reason for exam; i.e. extremities or head) *Use of iterative reconstruction technique DLP: 82 mGy-cm FINDINGS: LUNGS: The exam is somewhat limited due to artifact from respiratory motion. There is evidence of emphysema. The small pulmonary nodules are stable. The largest pulmonary nodule is a 4 mm peripheral or subpleural left upper lobe nodule. No new pulmonary nodule is seen. MEDIASTINUM: There is coronary artery calcification. The mediastinum is otherwise normal. PLEURA: There is no pleural effusion. No pleural mass or thickening. AXILLA: No lymphadenopathy. UPPER ABDOMEN: There is diverticulosis of the colon. OSSEOUS STRUCTURES: There are degenerative changes of the spine. CT/CT lung screening IMPRESSION: Limited exam due to artifact from respiratory motion. Stable small pulmonary nodules. Coronary artery calcification. Diverticulosis. ASSESSMENT: Lung-RADS category 2: Benign. RECOMMENDATION: Annual low-dose chest CT followup recommended.
== END 2021-10-28 15:47 | disposition home or self-care (01) ==
LOC: HO.CT 15:46
PROVIDERS: PCP Family Medicine; Visit Provider Physician Assistant Medical
DX: Z12.2 Encounter for screening for malignant neoplasm of respiratory organs (principal); F17.210 Nicotine dependence, cigarettes, uncomplicated
CPT/HCPCS: 71271

== ENCOUNTER → 2021-12-31 10:35 | Outpatient (BNVA) | payer MEDICARE, SELFPAY | PROVIDERS: PCP Family Medicine; Visit Provider Nurse Practitioner Family | DX: G47.33 Obstructive sleep apnea (adult) (pediatric) (principal) | CPT/HCPCS: 99212 ==

== ENCOUNTER 2022-02-27 10:09 | Outpatient (REF) | payer MEDICARE, SELFPAY ==
--- NOTE | 2022-02-27 10:14 | EMG_ITS ---
Bilateral tibial and peroneal motor studies were performed. Bilateral sural and superficial peroneal sensory studies were performed. Tibial H reflexes were obtained and paraspinal muscles were tested with a needle. 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 MD LAKEISHA Guerrero/MODL / [id number]
== END 2022-02-27 10:10 | disposition home or self-care (01) ==
LOC: HO.NEURO 10:09
PROVIDERS: Visit Provider Family Medicine
DX: M79.604 Pain in right leg (principal); M79.605 Pain in left leg; R20.0 Anesthesia of skin
CPT/HCPCS: 95886; 95911

== ENCOUNTER → 2022-04-30 09:09 | Outpatient (BNVA) | payer MEDICARE, SELFPAY | PROVIDERS: PCP Family Medicine; Visit Provider Anesthesiology | DX: M47.816 Spondylosis without myelopathy or radiculopathy, lumbar region (principal); M54.50 Low back pain, unspecified | CPT/HCPCS: 99212 ==

== ENCOUNTER 2022-06-10 12:10 | Outpatient (REF) | payer OTHER, SELFPAY ==
--- NOTE | ~2022-06-10 | XR_ITS ---
EXAMINATION: XR CHEST CLINICAL INFORMATION: Cough COMPARISON: Previous chest x-ray September [address] October 2021 TECHNIQUE: 2 views of the chest were obtained. FINDINGS: The cardiac and mediastinal contours are stable. There is subsegmental atelectasis at the left lung base. The lungs are otherwise clear. There is no pleural effusion or pneumothorax. There are degenerative changes of the spine. XR/XR chest 2V IMPRESSION: Subsegmental atelectasis at the left lung base.
== END 2022-06-10 12:11 | disposition home or self-care (01) ==
LOC: HO.XRAY 12:10
PROVIDERS: Absent Provider Family Medicine; PCP Family Medicine; Visit Provider Internal Medicine
DX: R05.8 Other specified cough (principal)
CPT/HCPCS: 71046

== ENCOUNTER 2022-07-01 11:21 | Outpatient (REF) | payer OTHER, SELFPAY ==
--- NOTE | ~2022-07-01 | XR_ITS ---
EXAMINATION: XR CHEST CLINICAL INFORMATION: Pulmonary disease with acute exacerbation COMPARISON: Chest radiographs 06/10/2022, 09/23/2017; CT lung screening 10/28/2021 TECHNIQUE: 2 views of the chest were obtained. FINDINGS: No airspace consolidation or groundglass opacity. No hyperinflation. There is tapering at the cardiac apex consistent with areolar tissue. Borderline blunting left lateral costophrenic angle is again seen. The posterior costophrenic sulci are clear and there is no effusion. The heart is normal in size. The vascularity is normal. The hilar and mediastinal contours and bony structures are unremarkable. XR/XR chest 2V IMPRESSION: No acute intrathoracic disease.
== END 2022-07-01 11:22 | disposition home or self-care (01) ==
LOC: HO.XRAY 11:21
PROVIDERS: PCP Family Medicine; Visit Provider Emergency Medicine
DX: J44.1 Chronic obstructive pulmonary disease with (acute) exacerbation (principal); G47.33 Obstructive sleep apnea (adult) (pediatric); Z99.89 Dependence on other enabling machines and devices
CPT/HCPCS: 71046; 99212

== ENCOUNTER 2022-09-12 10:07 | Outpatient (REF) | payer OTHER, SELFPAY ==
--- NOTE | ~2022-09-12 | XR_ITS ---
EXAMINATION: XR knee RT 4V CLINICAL INFORMATION: Reason for Exam ACUTE PAIN OF RIGHT KNEE COMPARISON: None available at the time of this dictation. TECHNIQUE: frontal, lateral, tunnel and patella sunrise views FINDINGS: BONES: No fracture or dislocation is present. JOINTS: Narrowing of joint spaces and developed osteophytes from the edges of articular surfaces suggest degenerative osteoarthritis. SOFT TISSUE: Normal XR/XR knee RT 4V IMPRESSION: Mild tricompartment degenerative osteoarthritis.
== END 2022-09-12 10:08 | disposition home or self-care (01) ==
LOC: HO.XRAY 10:07
PROVIDERS: Absent Provider Family Medicine; PCP Family Medicine; Visit Provider Internal Medicine
DX: M25.561 Pain in right knee (principal); M25.361 Other instability, right knee
CPT/HCPCS: 73564

== ENCOUNTER 2022-09-16 15:12 | Outpatient (REF) | payer OTHER, SELFPAY ==
--- NOTE | ~2022-09-16 | US_ITS ---
EXAMINATION: US VENOUS ULTRASOUND WITH DOPPLER LOWER EXTREMITY, LEFT CLINICAL INFORMATION: Left leg swelling COMPARISON: None TECHNIQUE: Ultrasound of the deep veins is performed from the hip to the calf with compression sonography and color and pulse Doppler assessment. Spectral analysis with color-flow imaging is performed. FINDINGS: There is normal venous compression and respiratory variation and augmented flow. The visualized common femoral vein, superficial femoral vein, profunda femoral vein, popliteal vein, and the trifurcation region shows no evidence of deep venous thrombosis. There is no significant popliteal fossa cyst. If the patient's symptoms persist, followup ultrasound in 5 days 7 days might be of value to exclude proximal propagation from a non-visualized calf vein. US/US venous duplex LE LT IMPRESSION: No DVT demonstrated in the left lower extremity.
== END 2022-09-16 15:13 | disposition home or self-care (01) ==
LOC: HO.US 15:12
PROVIDERS: PCP Family Medicine; Visit Provider Internal Medicine
DX: R60.0 Localized edema (principal); M79.605 Pain in left leg
CPT/HCPCS: 93971

== ENCOUNTER 2022-09-29 12:43 | Outpatient (REF) | payer OTHER, SELFPAY ==
--- NOTE | ~2022-09-29 | MR_ITS ---
EXAMINATION: MR LUMBAR SPINE WITHOUT CONTRAST CLINICAL INFORMATION: Low back pain. Severe left side associated with numbness. COMPARISON: None TECHNIQUE: MRI of the lumbar spine was obtained using routine sequences without contrast. FINDINGS: The lumbar vertebral bodies maintain normal heights and alignment. Hemangiomata are seen at T12 and L2. There is mild endplate edema inferiorly at L1. No significant disc height loss is seen. The distal spinal cord appears normal. The conus medullaris terminates normally at the L1 level. T2 hyperintense renal cysts are noted for which no imaging follow-up is recommended. The extraspinal soft tissues are otherwise unremarkable. SPINAL LEVELS: L1-L2: Shallow central protrusion. No spinal canal or neural foraminal stenosis. L2-L3: No posterior disc abnormality. No spinal canal or neural foraminal stenosis. L3-L4: Mild disc bulging with moderate to severe left facet arthropathy. Left foraminal protrusion compresses the exiting left L3 nerve root. No spinal canal stenosis. L4-L5: Disc bulging with moderate facet arthropathy. No spinal canal stenosis. Left foraminal protrusion abuts the exiting left L4 nerve root. Mild right neural foraminal stenosis. L5-S1: Disc bulging with severe right and moderate to severe left facet arthropathy. Broad-based right foraminal protrusion. Severe right neural foraminal stenosis with compression of the exiting right L5 nerve root. Right subarticular stenosis with compression of the traversing right S1 nerve root. MR/MR lumbar spine wo con IMPRESSION: 1. At L3-L4 there is left foraminal protrusion causing compression of the exiting left L3 nerve root. 2. At L4-L5 there is left foraminal protrusion which abuts the exiting left L4 nerve root. 3. At L5-S1 there is severe right neural foraminal stenosis with compression of the exiting right L5 nerve root and right subarticular stenosis with compression of the traversing right S1 nerve root.
== END 2022-09-29 12:44 | disposition home or self-care (01) ==
LOC: HO.MRI 12:43
PROVIDERS: Visit Provider Internal Medicine
DX: M54.50 Low back pain, unspecified (principal); G89.29 Other chronic pain; M25.561 Pain in right knee; M25.361 Other instability, right knee; E11.9 Type 2 diabetes mellitus without complications; Z79.4 Long term (current) use of insulin
CPT/HCPCS: 72148

== ENCOUNTER 2022-10-24 15:53 | Outpatient (REF) | payer OTHER, SELFPAY ==
--- NOTE | ~2022-10-24 | XR_ITS ---
EXAMINATION: XR KNEE AP STANDING CLINICAL INFORMATION: Pain COMPARISON: Right knee radiographs, 09/12/2022 TECHNIQUE: AP standing view of the bilateral knees was obtained. FINDINGS: Osseous structures appear intact. Mild degenerative changes of the bilateral knees. Minimal vascular calcifications are present. Soft tissues are otherwise unremarkable. XR/XR knee standing BI IMPRESSION: Mild degenerative changes of the bilateral knees.
== END 2022-10-24 15:54 | disposition home or self-care (01) ==
LOC: HO.HOSX 15:53
PROVIDERS: Visit Provider Physician Assistant
DX: M17.0 Bilateral primary osteoarthritis of knee (principal); M54.16 Radiculopathy, lumbar region
CPT/HCPCS: 73565; 99202

== ENCOUNTER → 2022-11-10 13:31 | Outpatient (BNVA) | payer OTHER, SELFPAY | PROVIDERS: PCP Family Medicine; Visit Provider Physician Assistant | DX: M17.11 Unilateral primary osteoarthritis, right knee (principal); E11.9 Type 2 diabetes mellitus without complications | CPT/HCPCS: 20610; 99202; J1020 ==

== ENCOUNTER → 2022-11-13 10:12 | Outpatient (BNVA) | payer OTHER, SELFPAY | PROVIDERS: PCP Family Medicine; Visit Provider Nurse Practitioner Family | DX: G47.33 Obstructive sleep apnea (adult) (pediatric) (principal) | CPT/HCPCS: 99212 ==

== ENCOUNTER 2022-11-19 10:32 | Outpatient (RCR) | payer OTHER, SELFPAY | END 2022-12-11 08:39 | disposition home or self-care (01) | LOC: HO.PT 10:32 | PROVIDERS: PCP Family Medicine; Visit Provider Physician Assistant | DX: M54.50 Low back pain, unspecified (principal); M25.552 Pain in left hip; M79.652 Pain in left thigh | CPT/HCPCS: 97110; 97162 ==

== ENCOUNTER 2022-11-25 10:15 | Outpatient (REF) | payer OTHER, SELFPAY ==
--- NOTE | ~2022-11-25 | CT_ITS ---
EXAMINATION: CT CHEST SCREENING CLINICAL INFORMATION: Current smoker. 65 pack year history. COMPARISON: Previous chest CT most recent October 2021 TECHNIQUE: Multidetector volumetric CT imaging of the chest is performed without contrast using low dose technique. Additional 2D coronal and sagittal reformatted images and axial 3D maximum intensity projection (MIP) images are generated on the CT workstation. This CT examination was performed using dose optimization techniques as appropriate, variously including the following: *Automated exposure control *Adjustment of mA and/or kV according to patient size (this includes techniques or standardized protocols for targeted exams where dose is matched to indication/reason for exam; i.e. extremities or head) *Use of iterative reconstruction technique DLP: 70 mGy-cm FINDINGS: LUNGS: Limited due to respiratory motion. 3 mm peripheral or subpleural left upper lobe nodule axial image 29 9 series 5. Other previously identified pulmonary nodules not appreciated. MEDIASTINUM: The mediastinum is normal. CORONARY ARTERY CALCIFICATION: Mild PLEURA: There is no pleural effusion. No pleural mass or thickening. AXILLA: No lymphadenopathy. UPPER ABDOMEN: Diverticulosis OSSEOUS STRUCTURES: Degenerative changes of the spine. CT/CT lung screening IMPRESSION: Limited due to respiratory motion. Stable 4 mm left upper lobe nodule. ASSESSMENT: Lung-RADS category 2: Benign RECOMMENDATION: Annual low-dose chest CT follow-up recommended.
== END 2022-11-25 10:16 | disposition home or self-care (01) ==
LOC: HO.CT 10:15
PROVIDERS: PCP Family Medicine; Visit Provider Physician Assistant Medical
DX: Z12.2 Encounter for screening for malignant neoplasm of respiratory organs (principal); F17.210 Nicotine dependence, cigarettes, uncomplicated
CPT/HCPCS: 71271

== ENCOUNTER → 2023-01-28 12:28 | Outpatient (BNVA) | payer OTHER, SELFPAY | PROVIDERS: PCP Family Medicine; Visit Provider Nurse Practitioner Family | DX: G47.33 Obstructive sleep apnea (adult) (pediatric) (principal); R25.1 Tremor, unspecified; R29.898 Other symptoms and signs involving the musculoskeletal system; M54.2 Cervicalgia | CPT/HCPCS: 99212 ==

== ENCOUNTER 2023-04-14 10:25 | Outpatient (REF) | payer OTHER, SELFPAY ==
--- NOTE | ~2023-04-14 | XR_ITS ---
EXAMINATION: XR CERVICAL SPINE CLINICAL INFORMATION: Neck pain COMPARISON: None available. TECHNIQUE: 6 views of the cervical spine, inclusive of the lateral oblique and swimmer's views, were obtained. FINDINGS: C7 vertebral body not well visualized. Mild curvature of the lower cervical and upper thoracic spine to the left. Bone alignment is otherwise normal. No fracture or dislocation. Multilevel degenerative spondylosis from C2-C3 to C6-C7. This is greatest at C4-C5 T5-T6 with large bridging vertebral body bony osteophytes. Right-sided neuroforaminal narrowing from bony osteophyte at C4-C5 and C5-C6. Left-sided neuroforaminal narrowing from bony osteophyte at C4-C5 and C6-C7. Prevertebral soft tissues are normal. XR/XR cervical spine min 6V IMPRESSION: Degenerative changes with large anterior bridging vertebral body bony osteophytes. Limited visualization of C7.
--- NOTE | ~2023-04-14 | MR_ITS ---
EXAMINATION: MR BRAIN WITHOUT CONTRAST CLINICAL INFORMATION: 77-year-old with tremor, unspecified. COMPARISON: 12/20/2016 CT brain. TECHNIQUE: Multiplanar multisequence MR imaging of the brain was done without IV contrast. FINDINGS: BRAIN VOLUME: Swzt-[id number] generalized diffuse supratentorial brain parenchymal volume loss possibly slightly progressed from the previous study. Yuhe-qs-hewijpsy vermian volume loss is similar to the previous study. Bilateral hippocampal volume loss is also noted which does not appear to be significantly disproportionate to the remainder of the cortical parenchymal volume loss within the limitations of qualitative assessment. STRUCTURAL: Cavum septum pellucidum and cavum vergae unchanged. BRAIN AND MENINGES: DWI sequence demonstrates no restricted diffusion to suggest acute or subacute cerebral ischemia. Small patchy zones of FLAIR/T2 signal hyperintensity are noted in the subcortical white matter of both cerebral hemispheres, which correspond to small hypodensities on the previous CT and are consistent with mild chronic ischemic microangiopathy. Gradient refocused imaging demonstrates no abnormal susceptibility-weighted signal loss to suggest hemorrhage, hemosiderin staining or abnormal mineralization. No extra-axial fluid collections, space-occupying process or mass effect are identified. VENTRICLES AND SUBARACHNOID SPACES: The ventricular system and subarachnoid spaces are approximately proportional to the degree of parenchymal volume loss, without hydrocephalus. ORBITAL STRUCTURES: Left-sided lens replacement unchanged. Otherwise, the visualized orbital structures are grossly unremarkable within the limitations of the study. VASCULAR: Signal voids are noted in the visualized major intracranial vessels. OSSEOUS STRUCTURES, SINUSES/MASTOIDS, EXTRACRANIAL SOFT TISSUES: Osseous marrow signal intensity appears grossly within normal limits. 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 There is some mucosal thickening in the ethmoid complex bilaterally and frontal sinuses. Note is made of a 2.0 x 0.6 x 2.3 cm well-circumscribed subgaleal mass along the lateral aspect of the left frontal region which is noted to be fat signal on all pulse sequences and is consistent with a subgaleal lipoma. This is similar to the previous CT. MR/MR head/brain wo con IMPRESSION: 1. 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 No acute intracranial process. 2. Nbgw-wn-bqedgqpt generalized diffuse supratentorial and cerebellar vermian parenchymal volume loss possibly slightly progressed from the previous study supratentorially. 3. Bilateral TMJ arthropathy. 4. 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
== END 2023-04-14 10:26 | disposition home or self-care (01) ==
LOC: HO.MRI 10:25
PROVIDERS: PCP Family Medicine; Visit Provider Nurse Practitioner Family
DX: R25.1 Tremor, unspecified (principal); R29.898 Other symptoms and signs involving the musculoskeletal system; I10 Essential (primary) hypertension; M54.2 Cervicalgia; E78.5 Hyperlipidemia, unspecified; E11.9 Type 2 diabetes mellitus without complications
CPT/HCPCS: 70551; 72052

== ENCOUNTER 2023-04-27 18:30 | Outpatient (REF) | payer OTHER, SELFPAY ==
[2023-04-27 18:53] LABS: Creatinine Urine 180.01 mg/dL; Microalbum/Creatinine Ratio Ur 9.9 ug/mg cr (<30)
== END 2023-04-27 18:31 | disposition home or self-care (01) ==
LOC: HO.HHCLNP 18:30
PROVIDERS: Visit Provider Family Medicine
DX: E11.9 Type 2 diabetes mellitus without complications (principal)
CPT/HCPCS: 82043; 82570

== ENCOUNTER 2023-05-27 12:42 | Outpatient (REF) | payer OTHER, SELFPAY ==
--- NOTE | ~2023-05-27 | US_ITS ---
EXAMINATION: US LOWER EXTREMITY VENOUS (REFLUX EXAM), BILATERAL CLINICAL INDICATION: Chronic venous insufficiency with lower extremity varicose veins and pain COMPARISON: None. TECHNIQUE: Color flow triplex imaging and compression Doppler was performed to evaluate both the deep and the superficial systems bilaterally. To evaluate the superficial system, the examination was performed in the upright position. Color-flow Doppler ultrasound and compression ultrasound were utilized. In addition, maneuvers were utilized to demonstrate reflux. FINDINGS: 1. DEEP VENOUS ULTRASOUND OF THE RIGHT LOWER EXTREMITY: Common Femoral Vein: Compressible, normal respiratory variation and augmented flow. Femoral Vein: Compressible, normal color flow and augmentation. Popliteal Vein: Compressible, normal augmentation. Deep Reflux: There is no evidence of reflux in the deep system in either the common femoral vein or the popliteal vein. There is no evidence of a Cuenca's cyst. 2. SUPERFICIAL ULTRASOUND WITH DOPPLER OF RIGHT LOWER EXTREMITY: GREAT SAPHENOUS VEIN: Saphenofemoral Junction: 0.8 cm; Reflux: 0 ms Proximal Thigh: 0.5 cm; Reflux: 0 ms Mid Thigh: 0.5 cm; Reflux: 0 ms Above Knee: 0.3 cm; Reflux: 0 ms At Knee: 0.4 cm; Reflux: 612 ms Below Knee: 0.5 cm; Reflux: 0 ms Mid Calf: 0.3 cm; Reflux: 0 ms Ankle: 0.3 cm; Reflux: 0 ms DUPLICATED MEDIAL GREAT SAPHENOUS VEIN: Diameter: None imaged Reflux: NA DUPLICATED LATERAL GREAT SAPHENOUS VEIN: Diameter: None imaged Reflux: NA SMALL SAPHENOUS VEIN: Proximal: 0.3 cm; Reflux: 0 ms Distal: 0.3 cm; Reflux: 0 ms VEIN OF GIACOMINI: Size: NA Reflux: NA PERFORATORS: Location: Distal thigh Size: 0.2 cm Reflux: 1024 ms VARICOSITIES: Location: Multiple varicosities throughout the thigh and calf Size: Less than 0.3 cm Reflux: None 3. DEEP VENOUS ULTRASOUND OF THE LEFT LOWER EXTREMITY: Common Femoral Vein: Compressible, normal respiratory variation and augmented flow. Femoral Vein: Compressible, normal color flow and augmentation. Popliteal Vein: Compressible, normal augmentation. Deep Reflux: There is no evidence of reflux in the deep system in either the common femoral vein or the popliteal vein. There is no evidence of a Cuenca's cyst. 4. SUPERFICIAL ULTRASOUND WITH DOPPLER OF LEFT LOWER EXTREMITY: GREAT SAPHENOUS VEIN: Saphenofemoral Junction: 0.5 cm; Reflux: 0 ms Proximal Thigh: 0.4 cm; Reflux: 0 ms Mid Thigh: 0.3 cm; Reflux: 0 ms Above Knee: 0.4 cm; Reflux: 1204 ms At Knee: 0.3 cm; Reflux: 0 ms Below Knee: 0.3 cm; Reflux: 0 ms Mid Calf: 0.3 cm; Reflux: 2332 ms Ankle: 0.4 cm; Reflux: 2220 ms DUPLICATED MEDIAL GREAT SAPHENOUS VEIN: Diameter: None imaged Reflux: NA DUPLICATED LATERAL GREAT SAPHENOUS VEIN: Diameter: None imaged Reflux: NA SMALL SAPHENOUS VEIN: Proximal: 0.3 cm; Reflux: 0 ms Distal: 0.2 cm; Reflux: 0 ms VEIN OF GIACOMINI: Size: NA Reflux: NA PERFORATORS: Location: Mid thigh, mid calf and distal calf Size: 0.3 cm Reflux: None VARICOSITIES: Location: Multiple varicosities throughout the thigh and calf Size: Less than 0.3 cm Reflux: None US/US venous duplex LE BI IMPRESSION: Right: Focal segmental area of mild to moderate reflux in the great saphenous vein at the knee. 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 Multiple small varicose veins without significant reflux. Left: Segmental areas of reflux in the great saphenous vein at the distal thigh and mid to distal calf. Multiple small varicose veins without significant reflux.
== END 2023-05-27 12:43 | disposition home or self-care (01) ==
LOC: HO.US 12:42
PROVIDERS: PCP Family Medicine; Visit Provider Family Medicine
DX: I83.813 Varicose veins of bilateral lower extremities with pain (principal)
CPT/HCPCS: 93970

== ENCOUNTER 2023-06-02 13:08 | Outpatient (AMB) | payer OTHER, SELFPAY ==
[2023-06-02 13:16] VITALS: BP 140/82; PULSE 82; O2SAT 96; BMI 37.8
--- NOTE | 2023-06-02 13:16 | A.OFFVIS_ITS ---
Intake Vital Signs 06/02/23 13:16 Height 5 ft 6 in Weight 234 lb 2 oz BMI 37.8 BP 140/82 H Blood Pressure Location Lt brachial Position Sitting Pulse 82 Pulse Source Pulse Oximeter Pulse Oximetry (%) 96 Oxygen Delivery Method Room Air Intake Visit Reasons: N Issue-Tremor both sides hands-Confirmed Intake Note: Pt states tremors began a while ago, states its worst in am when waking . Notices tremors when he has to use force or concentrate Allergies Penicillins Allergy (Intermediate, Verified 06/02/23 13:20) RASH Carbapenems Allergy (Unknown, Verified 06/02/23 13:20) Unknown Cephalosporins Allergy (Unknown, Verified 06/02/23 13:20) Unknown enviormental Allergy (Severe, Uncoded 01/28/23 13:06) coughing and sneezing Medication List - Last Reconciled 06/02/23 by Lauren Vogt, CELESTINE amlodipine 5 mg PO QAM atorvastatin 40 mg PO BEDTIME blood sugar diagnostic ([employer] Ultra Test strips) As directed carvedilol 25 mg PO cholecalciferol (vitamin D3) 25 mcg PO DAILY diclofenac sodium 1% (Voltaren) 2 grams topical QID doxazosin 8 mg PO BEDTIME finasteride 5 mg PO QAM fluticasone propion-salmeterol 500-50 mcg/dose (Advair Diskus) 1 ea inhalation furosemide 20 mg PO QAM hydralazine 100 mg PO TID lancets As directed latanoprost 0.005% 1 drp ophthalmic (eye) QPM lisinopril 40 mg PO QPM loratadine (Allergy Relief (loratadine)) 10 mg PO DAILY metformin ER 500 mg PO QPM mupirocin 2% topical TID sertraline 25 mg PO QAM HPI HPI Comments History of Present Illness Details 77-yr-old male presents for f/u visit, a ccompanied by dtr. Pt denies any significant interval medical history changes. He is still Ind w/ ADLs. Tremor is stable. Sometimes when he holds something or is trying to eat. Cognition is stable. Some memroy lapses. No unsfae behaviors. Pt continues to be able to pay some (but not all bills), play his numbers. He is able to cook w/o diffiuclty. He enjoys playing games w/ friends/family. Tries to take walks- as able. 04/14/23: MR/MR head/brain wo con IMPRESSION: 1. 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 No acute intracranial process. 2. [id number]-qq-[id number] generalized diffuse supratentorial and cerebellar vermian parenchymal volume loss possibly slightly progressed from the previous study supratentorially. 3. Bilateral TMJ arthropathy. 4. 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 04/14/23, XR/XR cervical spine min 6V IMPRESSION: Degenerative changes with large anterior bridging vertebral body bony osteophytes. Limited visualization of C7. PFSH Medical History Spondylosis of lumbar region without myelopathy or radiculopathy Low back pain HTN (hypertension) Arthritis History of back pain History of fatty infiltration of liver Seasonal allergies Elevated cholesterol Asthma Anxiety Depression Diabetes mellitus History of COVID-19 Allergic rhinitis SHANON (obstructive sleep apnea) Obesity Smoker Surgical History Hx of ventral hernia repair Hx of colonoscopy History of left cataract extraction History of cystoscopy Hx of umbilical hernia repair Family History Mother No problems noted. Father No problems noted. Brother CAD (coronary artery disease) Sister Alzheimer disease Social History Are you a primary acute care physical therapist to a significant other at home: No Do you presently have visiting nurse or other home services: Yes Alcohol intake: never Patient Tobacco Use Status: Current everyday Tobacco user Cigarette Packs Per Day: 0.5 Cigarettes Per Day: 10.0 Years Smoked: 60 +/- Review of Systems Const All systems reviewed & are unremarkable except as noted in HPI and below Physical Exam Vital Signs: Last Vital Signs Pulse 82 06/02/23 13:16 BP 140/82 H 06/02/23 13:16 Pulse Ox 96 06/02/23 13:16 Oxygen Delivery Method Room Air 06/02/23 13:16 BMI result Body Mass Index 37.8 Const General: cooperative and no acute distress Resp Effort & Inspection: normal respiratory effort and able to speak in complete sentences Neuro Other: General: A&O x's 3 MMSE: 18/28 (omitted country and repeat phrase d/t Ecu[place] speaking from [place])- pt unable to write sentence, copy diagram, recall 3/3 immediately but 0/3 on 3 min recall. Expression: Ok, mild right lower facial droop, but good smile. Voice: ok Tremor: BUE mild postural tremor, R > L. Tone: RUE mild rigidity Dyskinesia: None FFM: Ok Foot taps: Very subtle decrease in RLE Gait: Ok Psych: Pleasant affect Assessment & Plan Assessment & Plan (1) Tremor: Code(s): R25.1 - Tremor, unspecified (2) Memory difficulties: Code(s): R41.3 - Other amnesia (3) Obstructive sleep apnea hypopnea, severe: Comment: AHI 50/hr, REM AHI 56/hr, )2 sh[place] 73% Code(s): G47.33 - Obstructive sleep apnea (adult) (pediatric) Plan Reviewed brain MRI- No acute findings. Mild chronic ischemic microangiopathy.. Vbbi-jj-gvkcgthy generalized diffuse supratentorial and cerebellar volume loss. Reviewed cervical spine XR: Degenerative changes with large anterior bridging vertebral body bony osteophytes. MMSE- modified d/t Ecuadorean speaking- - likely results lower d/t pt does not have strong writing ability, tremor, and language barrier. Monitor cognition. Continue optimizing CV and metabolic risk factors. Continue cognitive and social stimualting activities. Increase physical activity as able. Continue APAP. Future considerations- neuroprotective agent. Monitor tremor. No indications to trial tremor tx at this time. f/u in 6 months or sooner prn. Coding Level of Care Code Est Pt Level 4 (66948) Diagnoses Tremor R25.1 Memory difficulties R41.3 Obstructive sleep apnea hypopnea, severe G47.33
== END 2023-06-02 14:06 | disposition home or self-care (01) ==
PROVIDERS: PCP Family Medicine; Visit Provider Nurse Practitioner Family
DX: R25.1 Tremor, unspecified (principal); R41.3 Other amnesia; G47.33 Obstructive sleep apnea (adult) (pediatric)
CPT/HCPCS: 99214

== ENCOUNTER → 2023-06-02 13:08 | Outpatient (BNVA) | payer OTHER, SELFPAY | PROVIDERS: PCP Family Medicine; Visit Provider Nurse Practitioner Family | DX: R25.1 Tremor, unspecified (principal); R41.3 Other amnesia; G47.33 Obstructive sleep apnea (adult) (pediatric); F17.210 Nicotine dependence, cigarettes, uncomplicated; Z99.89 Dependence on other enabling machines and devices | CPT/HCPCS: 99212 ==

== ENCOUNTER 2023-08-13 10:29 | Outpatient (REF) | payer OTHER, SELFPAY ==
[2023-08-19 16:53] LABS: Renin 0.15 ng/mL/h (0.25-5.82)
== END 2023-08-13 10:30 | disposition home or self-care (01) ==
LOC: HO.HHCL 10:29
PROVIDERS: Visit Provider Family Medicine
DX: I10 Essential (primary) hypertension (principal)
CPT/HCPCS: 36415; 82088; 84244

== ENCOUNTER 2023-09-03 11:47 | Outpatient (REF) | payer OTHER, SELFPAY ==
--- NOTE | ~2023-09-03 | XR_ITS ---
EXAMINATION: XR HIP, RIGHT CLINICAL INFORMATION: Pain. COMPARISON: Radiograph right hip 05/26/2018. TECHNIQUE: Two views of the right hip. FINDINGS: Chronic deformity of the lesser trochanter of the right femur. No acute fracture or subluxation. 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 Symmetric SI joints. Pubic symphysis and pelvic rami are maintained. Nonspecific radiopaque oval-shaped radiopaque density in the central overlying the rectum measuring 1.6 cm, not seen on 05/26/2018. XR/XR hip RT w PEL1V IMPRESSION: 1. No acute fracture or subluxation. 2. Chronic deformity of the lesser trochanter of the right femur. 3. 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 4. Nonspecific 1.6 cm radiopaque density in the pelvis.
== END 2023-09-03 11:48 | disposition home or self-care (01) ==
LOC: HO.HOSX 11:47
PROVIDERS: Visit Provider Physician Assistant
DX: M25.551 Pain in right hip (principal); M43.06 Spondylolysis, lumbar region
CPT/HCPCS: 73502; 99212

== ENCOUNTER 2023-09-03 13:14 | Outpatient (AMB) | payer OTHER, SELFPAY ==
[2023-09-03 13:16] VITALS: BMI 37.8
--- NOTE | 2023-09-03 13:16 | A.OFFVIS_ITS ---
Intake Vital Signs 09/03/23 13:16 Height 5 ft 6 in Weight 234 lb BMI 37.8 Intake Visit Reasons: Newprob- RT Hip pain Intake Note: Bharathi is a 77 year old male who presents today for a evaluation for his right hip pain. Patient reports he has been having ongoing pain for 4 years now. No hx of treatment or injury. He states that his pain is more focused on his glutes and moves down to his right knee. Pain is worse when walking and using the stairs. Allergies Penicillins Allergy (Intermediate, Verified 09/03/23 13:49) RASH Carbapenems Allergy (Unknown, Verified 09/03/23 13:49) Unknown Cephalosporins Allergy (Unknown, Verified 09/03/23 13:49) Unknown enviormental Allergy (Severe, Uncoded 01/28/23 13:06) coughing and sneezing HPI Newprob- RT Hip pain HPI Details 77-year-old male, who is Vietnamese speakin g, presents in the office today for an evaluation of right hip pain. The patient reports having ongoing pain for 4 years. He denies any prior treatments. He denies any prior injury. He states the pain is more focused on the glutes and radiated down to his right knee. He reports and increase in pain with ambulation and use of stairs. PFSH Medical History Spondylosis of lumbar region without myelopathy or radiculopathy Low back pain HTN (hypertension) Arthritis History of back pain History of fatty infiltration of liver Seasonal allergies Elevated cholesterol Asthma Anxiety Depression Diabetes mellitus History of COVID-19 Allergic rhinitis SHANON (obstructive sleep apnea) Obesity Smoker Surgical History Hx of ventral hernia repair Hx of colonoscopy History of left cataract extraction History of cystoscopy Hx of umbilical hernia repair Family History Mother No problems noted. Father No problems noted. Brother CAD (coronary artery disease) Sister Alzheimer disease Social History Are you a primary childcare director to a significant other at home: No Do you presently have visiting nurse or other home services: Yes Alcohol intake: never Patient Tobacco Use Status: Current everyday Tobacco user Cigarette Packs Per Day: 0.5 Cigarettes Per Day: 10.0 Years Smoked: 60 +/- Review of Systems Const All systems reviewed & are unremarkable except as noted in HPI and below Physical Exam Vital Signs: BMI result Body Mass Index 37.8 Const General: cooperative, healthy appearing and no acute distress Resp Effort & Inspection: normal respiratory effort and able to speak in complete sentences Cardio Rate: regular rate Peripheral pulses: Peripheral pulses 2+ throughout GI Palpation (GI): Soft to palpation Skin Lesions: no lesions Rashes: no rashes Extrem Other: Right hip: Normal to inspection. No ecchymosis, erythema, or edema. Full hip ROM in all planes. No tenderness to palpation over the greater trochanteric bursa. 5/5 strength with resisted hip flexion, knee extension, abduction, and abductio n. Pain and weakness with straight leg raise. Pain in thigh with internal and external rotation. Pain radiating from the glute along the lateral aspect tot he knee and down to the foot. NVI. Assessment & Plan Assessment & Plan (1) Lumbar spondylolysis: Code(s): M43.06 - Spondylolysis, lumbar region Plan Mr. Piter Angel is a 77-year-old male, who is Vietnamese speaking, presents in the office today for an evaluation of right hip pain. The patient reports having ongoing pain for 4 years. He denies any prior treatments. He denies any prior injury. He states the pain is more focused on the glutes and radiated down to his right knee. He reports and increase in pain with ambulation and use of stairs. The patient will be referred to Pain Management for further evaluation and treatment. Follow up will be PRN, or sooner if needed. X-rays of the right hip which were obtained while in the office today and were reviewed by me, Lien Mcdonald PA-C, revealed no acute fracture or dislocation. MRI of the lumbar spine, obtained on 09/29/2020, revealed: 1. At L3-L4 there is left foraminal protrusion causing compression of the exiting left L3 nerve root. 2. At L4-L5 there is left foraminal protrusion which abuts the exiting left L4 nerve root. 3. At L5-S1 there is severe right neural foraminal stenosis with compression of the exiting right L5 nerve root and right subarticular stenosis with compression of the traversing right S1 nerve root. Orders: Orders XR hip RT w PEL1V Today M25.559 - Pain in unspecified hip Referrals Pain Management Referral M43.06 - Spondylolysis, lumbar region Patient Instructions: Scribed for Lien Mcdonald PA-C by Naomi Wheeler electromedical equipment technician, on 09/03/2023 at 1:15 pm, EST. Coding Level of Care Code New Pt Level 4 (85998) Diagnoses Lumbar spondylolysis M43.06
== END 2023-09-03 13:56 | disposition home or self-care (01) ==
PROVIDERS: PCP Family Medicine; Visit Provider Physician Assistant
DX: M43.06 Spondylolysis, lumbar region (principal)
CPT/HCPCS: 99214

== ENCOUNTER 2023-09-17 11:29 | Outpatient (REF) | payer OTHER, SELFPAY ==
--- NOTE | ~2023-09-17 | XR_ITS ---
EXAMINATION: XR hip RT min 2V, XR hip LT min 2V, XR pelvis 1-2V CLINICAL INFORMATION: Reason for Exam bilateral hip pain COMPARISON: 09/03/2023 TECHNIQUE: Two views of the bilateral hips and AP view of the pelvis FINDINGS: * No acute fracture or dislocation. * Mild degenerative changes of the bilateral hip joints. Redemonstration of chronic deformity of the lesser trochanter of the right femur. * No soft tissue abnormality. XR/XR hip LT min 2V IMPRESSION: * No acute fracture or dislocation. * Mild degenerative changes of the bilateral hip joints.
--- NOTE | ~2023-09-17 | XR_ITS ---
EXAMINATION: XR hip RT min 2V, XR hip LT min 2V, XR pelvis 1-2V CLINICAL INFORMATION: Reason for Exam bilateral hip pain COMPARISON: 09/03/2023 TECHNIQUE: Two views of the bilateral hips and AP view of the pelvis FINDINGS: * No acute fracture or dislocation. * Mild degenerative changes of the bilateral hip joints. Redemonstration of chronic deformity of the lesser trochanter of the right femur. * No soft tissue abnormality. XR/XR hip RT min 2V IMPRESSION: * No acute fracture or dislocation. * Mild degenerative changes of the bilateral hip joints.
--- NOTE | ~2023-09-17 | XR_ITS ---
EXAMINATION: XR hip RT min 2V, XR hip LT min 2V, XR pelvis 1-2V CLINICAL INFORMATION: Reason for Exam bilateral hip pain COMPARISON: 09/03/2023 TECHNIQUE: Two views of the bilateral hips and AP view of the pelvis FINDINGS: * No acute fracture or dislocation. * Mild degenerative changes of the bilateral hip joints. Redemonstration of chronic deformity of the lesser trochanter of the right femur. * No soft tissue abnormality. XR/XR pelvis 1-2V IMPRESSION: * No acute fracture or dislocation. * Mild degenerative changes of the bilateral hip joints.
== END 2023-09-17 11:30 | disposition home or self-care (01) ==
LOC: HO.HHCX 11:29
PROVIDERS: Visit Provider Internal Medicine
DX: M25.551 Pain in right hip (principal); M25.552 Pain in left hip
CPT/HCPCS: 72170; 73502

== ENCOUNTER 2023-10-01 09:45 | Outpatient (AMB) | payer OTHER, SELFPAY ==
--- NOTE | 2023-10-01 10:11 | MHC.OFFVIS ---
Intake Vital Signs 10/01/23 10:30 Height 5 ft 6 in Weight 229 lb 8 oz BMI 37.0 BP 138/62 Blood Pressure Location Lt brachial Position Sitting Respiration 14 Pulse 52 Pulse Source Pulse Oximeter Pulse Oximetry (%) 96 Oxygen Delivery Method Room Air Intake Visit Reasons: Spondylosis, lumbar region/confirmed Intake Note: Patient comes in for new problem, he was accompanied by daughter Alessia. Reports pain 03/26.? Allergies Penicillins Allergy (Intermediate, Verified 10/01/23 10:29) RASH Carbapenems Allergy (Unknown, Verified 10/01/23 10:29) Unknown Cephalosporins Allergy (Unknown, Verified 10/01/23 10:29) Unknown enviormental Allergy (Severe, Uncoded 09/14/23 15:07) coughing and sneezing HPI HPI Comments History of Present Illness Details Mr. Piter Angel is in my office today again to discuss possibility of treatment with interventional pain management. He reports that his legs are getting weaker, he reports shock-like pain sensation in left more than right lower extremity. He reports weakness but not numbness in bilateral lower extremities. Results of the MRI done 3 years ago indicate severe degenerative disc disease. Progression of the disease need to be evaluated by the MRI. The patient will be scheduled for the appointment after MRI will be performed. PFSH Medical History Spondylosis of lumbar region without myelopathy or radiculopathy Low back pain HTN (hypertension) Arthritis History of back pain History of fatty infiltration of liver Seasonal allergies Elevated cholesterol Asthma Anxiety Depression Diabetes mellitus History of COVID-19 Allergic rhinitis SHANON (obstructive sleep apnea) Obesity Smoker Surgical History Hx of ventral hernia repair Hx of colonoscopy History of left cataract extraction History of cystoscopy Hx of umbilical hernia repair Family History Mother No problems noted. Father No problems noted. Brother CAD (coronary artery disease) Sister Alzheimer disease Social History (System 09/14/23 @ 15:07 by Leidy Patton) Are you a primary managed care manager to a significant other at home: No Do you presently have visiting nurse or other home services: Yes Alcohol intake: never Patient Tobacco Use Status: Current everyday Tobacco user Cigarette Packs Per Day: 0.5 Cigarettes Per Day: 10.0 Years Smoked: 60 +/- Review of Systems Const All systems reviewed & are unremarkable except as noted in HPI and below ENT Reports Normal hearing present Neuro Reports Normal hearing present Physical Exam Vital Signs: Last Vital Signs Pulse 52 10/01/23 10:30 Resp 14 10/01/23 10:30 BP 138/62 10/01/23 10:30 Pulse Ox 96 10/01/23 10:30 Oxygen Delivery Method Room Air 10/01/23 10:30 BMI result Body Mass Index 37.0 Const General: cooperative and no acute distress Orientation/consciousness: patient oriented x3 HEENT Other: left parietal head lump Neck Neck: Yes supple Resp Effort & Inspection: normal respiratory effort and able to speak in complete sentences Neuro General: patient oriented x3 and moves all extremities Cranial nerves: Yes Normal hearing present Cognition (Neuro): normal cognition Psych Appearance: grossly normal Mental Status: mental status grossly normal Assessment & Plan Assessment & Plan (1) Lumbar spondylolysis: Code(s): M43.06 - Spondylolysis, lumbar region (2) Lumbar radiculopathy: Code(s): M54.16 - Radiculopathy, lumbar region Plan Mr. Piter Angel is a 77-year-old male, who is Albanian speaking, presents in the office today for follow-up evaluation. Now he reports significant pain in bilateral lower extremities with radiation from the projection of the sciatic nerve all the way down to the lower leg. He denies numbness however admits weakness of bilateral lower extremities mostly on the left. X-rays of the right hip which were obtained while in the office today and were reviewed by me, Lien Mcdonald PA-C, revealed no acute fracture or dislocation. MRI of the lumbar spine, obtained on 09/29/2020, revealed: 1. At L3-L4 there is left foraminal protrusion causing compression of the exiting left L3 nerve root. 2. At L4-L5 there is left foraminal protrusion which abuts the exiting left L4 nerve root. 3. At L5-S1 there is severe right neural foraminal stenosis with compression of the exiting right L5 nerve root and right subarticular stenosis with compression of the traversing right S1 nerve root. Attention was attracted today that the patient left more than right lower extremities are getting weaker. He reports pain shooting down to bilateral lower extremities more on the left and less on the right. Hyperreflexia L4 is noted on physical exam today. I decided to send this patient for the MRI of the lumbar spine to evaluate potential progression of the above-described condition. Orders: Orders MR lumbar spine wo con Today M43.06 - Spondylolysis, lumbar region, M54.16 - Radiculopathy, lumbar region Coding Level of Care Code Est Pt Level 3 (08171) Diagnoses Lumbar spondylolysis M43.06 Lumbar radiculopathy M54.16
[2023-10-01 10:30] VITALS: BP 138/62; PULSE 52; RESP 14; O2SAT 96; BMI 37.0
== END 2023-10-01 10:37 | disposition home or self-care (01) ==
PROVIDERS: PCP Family Medicine; Referring Provider Physician Assistant; Visit Provider Anesthesiology
DX: M43.06 Spondylolysis, lumbar region (principal); M54.16 Radiculopathy, lumbar region
CPT/HCPCS: 99213

== ENCOUNTER → 2023-10-01 09:45 | Outpatient (BNVA) | payer OTHER, SELFPAY | PROVIDERS: PCP Family Medicine; Referring Provider Physician Assistant; Visit Provider Anesthesiology | DX: M43.06 Spondylolysis, lumbar region (principal); M54.16 Radiculopathy, lumbar region | CPT/HCPCS: 99212 ==

== ENCOUNTER 2023-10-15 09:06 | Emergency (ER) | payer OTHER, SELFPAY ==
--- NOTE | ~2023-10-15 | XR_ITS ---
EXAMINATION: XR CHEST CLINICAL INFORMATION: Low oxygenation saturation. Influenza positive. COMPARISON: Chest radiograph dated 07/01/2022. TECHNIQUE: Frontal view of the chest was obtained. FINDINGS: The trachea is in normal anatomic position. The cardiomediastinal silhouette remains stable in size and configuration. There is mild calcific atherosclerotic disease of the aorta. There is no consolidation within either lung. No pleural effusion or pneumothorax. There are degenerative changes of the acromioclavicular joints. XR/XR chest 1V IMPRESSION: No acute cardiopulmonary disease. Stable appearance of the heart and lungs.
[2023-10-15 10:25] VITALS: BP 114/58; PULSE 60; RESP 16; TEMP 36.1; O2SAT 94; BMI 29.6
[2023-10-15 11:03] LABS: MANUAL DIFF FLAG NO
[2023-10-15 11:04] LABS: Basophils Percent Auto 0.4 % (0-2); Eosinophils Percent Auto 0.2 % (0-4); Hematocrit 44.1 % (42.0-52.0); Hemoglobin 15.3 g/dl (14.0-18.0); Imm Gran Abs Auto 0.01 X10*3/uL (0.00-0.03); Imm Gran Pct Auto 0.2 % (0.0-0.4); Lymphocytes Absolute Auto 0.8 X10*3/uL (1.2-4.9); Mean Corpuscular HGB Conc 34.7 g/dl (31.0-36.0); Mean Corpuscular Hemoglobin 30.5 pg (27.0-33.0); Mean Platelet Volume 12.4 fL (9.4-12.4); Monocytes Absolute Auto 0.9 X10*3/uL (0.1-1.2); Monocytes Percent Auto 19.9 % (2-11); Neutrophils Percent Auto 63.3 % (45-73); Platelet Count 122 X10*3/uL (160-400); Red Blood Count 5.01 X10*6/uL (4.60-5.80); Red Cell Distribution Width 14.8 % (11.0-16.0); White Blood Count 4.7 X10*3/uL (4.8-10.8)
[2023-10-15 11:13] LABS: Appearance Urine Clear; Color Urine Dark Yellow; Glucose Urine UA Negative (Negative); Leukocyte Esterase Urine Negative (Negative); Nitrite Urine Negative (Negative); PH 5.5 (5.0-9.0); Specific Gravity - Urine 1.025 (1.005-1.025); UMIC TRIGGER UACC YES; Urine Blood Negative (Negative); Urine Ketones Negative (Negative); Urine Protein 30 (1+) mg/dL (Neg-Trace)
[2023-10-15 11:22] LABS: Alanine Aminotransferase 35 U/L (0-40); Albumin Level 3.7 g/dL (3.5-5.0); Alkaline Phosphatase 69 U/L (39-117); Anion Gap 12 (12-20); Aspartate Amino Transferase 47 U/L (5-37); Bilirubin Total 0.5 mg/dL (0.0-1.0); Blood Urea Nitrogen 23 mg/dL (9-16); Calcium 8.6 mg/dL (8.4-10.2); Carbon Dioxide 26 mmol/L (22-29); Chloride 106 mmol/L (96-108); Estimated Glomerular Filt Rate > 60; Glucose Random 110 mg/dL (60-115); Potassium 3.9 mmol/L (3.3-5.1); Sodium 140 mmol/L (135-145)
[2023-10-15 11:37] LABS: Bacteria Urine None Seen (None Seen); Hyaline Casts Urine 0-2 /LPF (0-2); RBC Urine 0-2 /HPF (0-2); WBC Urine 0-5 /HPF (0-5)
[2023-10-15 11:47] LABS: Lipase 6 U/L (8-78)
[2023-10-15 12:25] LABS: Influenza A PCR NEGATIVE (Negative); Influenza B PCR POSITIVE (Negative); Resp Syncy Virus RNA Qual PCR NEGATIVE (Negative); SARS COV2 PCR INHOUSE NEGATIVE (Negative)
--- NOTE | 2023-10-15 13:22 | ED_ITS ---
HPI - General Adult General Chief complaint: Abdominal Pain Stated complaint: SOB, diarrhea Time Seen by Provider: 10/15/23 12:59 History of Present Illness HPI narrative: The patient is a 78-year-old male with a history of hypertension, asthma, sleep apnea, and type 2 diabetes. He is also a smoker. He lives with his and another family in an apartment. Apparently the other 3 people in his house have been sick recently. The patient has felt unwell for about 3 days. He has had diarrhea and today he seemed somewhat short of breath. He does not know if he has had a fever. He has had a mild headache. He has had some nasal congestion. Very mild cough. No chest pain or pleuritic pain. He has had loose stools and some mild abdominal pain. Today his family was concerned about his health and recommended he come to the hospital. He takes medications for high blood pressure and diabetes. No history of stroke or WI he says. Related Data Home Medications Medication Instructions Recorded Confirmed cholecalciferol (vitamin D3) 25 25 mcg PO DAILY 06/19/20 06/02/23 mcg (1,000 unit) capsule diclofenac sodium 1 % topical gel 2 g topical QID 06/19/20 06/02/23 (Voltaren) doxazosin 8 mg tablet 8 mg PO BEDTIME 06/19/20 06/02/23 latanoprost 0.005 % eye drops 1 drp ophthalmic (eye) QPM 06/19/20 06/02/23 loratadine 10 mg tablet (Allergy 10 mg PO DAILY 06/19/20 06/02/23 Relief (loratadine)) amlodipine 5 mg tablet 5 mg PO QAM 01/28/23 06/02/23 atorvastatin 40 mg tablet 40 mg PO BEDTIME 01/28/23 06/02/23 blood sugar diagnostic (OneTouch #10 ea 01/28/23 06/02/23 Ultra Test strips) carvedilol 25 mg tablet 25 mg PO 01/28/23 06/02/23 finasteride 5 mg tablet 5 mg PO QAM 01/28/23 06/02/23 fluticasone 500 mcg-salmeterol 50 1 ea inhalation 01/28/23 06/02/23 mcg/dose blistr powdr for inhalation (Advair Diskus) furosemide 20 mg tablet 20 mg PO QAM 01/28/23 06/02/23 hydralazine 100 mg tablet 100 mg PO TID 01/28/23 06/02/23 lancets #100 ea 01/28/23 06/02/23 lisinopril 40 mg tablet 40 mg PO QPM 01/28/23 06/02/23 metformin 500 mg tablet,extended 500 mg PO QPM 01/28/23 06/02/23 release 24 hr mupirocin 2 % topical ointment topical TID 01/28/23 06/02/23 sertraline 25 mg tablet 25 mg PO QAM 01/28/23 06/02/23 Previous Rx's Medication Instructions Recorded albuterol sulfate 90 mcg/actuation 2 puff inhalation Q4-6H PRN 10/15/23 aerosol inhaler shortness of breath or wheezing #8.5 grams prednisone 20 mg tablet 40 mg (2 x 20 mg) PO DAILY 3 days 10/15/23 #6 tabs Allergies Allergy/AdvReac Type Severity Reaction Status Date / Time Penicillins Allergy Intermediate RASH Verified 10/15/23 10:25 Carbapenems Allergy Unknown Unknown Verified 10/15/23 10:25 Cephalosporins Allergy Unknown Unknown Verified 10/15/23 10:25 enviormental Allergy Severe coughing Uncoded 10/15/23 10:25 and sneezing Review of Systems 2 Review of Systems: Yes all other systems are reviewed and are negative [facility] Past Medical History Medical History Spondylosis of lumbar region without myelopathy or radiculopathy Low back pain HTN (hypertension) Arthritis History of back pain History of fatty infiltration of liver Seasonal allergies Elevated cholesterol Asthma Anxiety Depression Diabetes mellitus History of COVID-19 Allergic rhinitis SHANON (obstructive sleep apnea) Obesity Smoker Surgical History Hx of ventral hernia repair Hx of colonoscopy History of left cataract extraction History of cystoscopy Hx of umbilical hernia repair Family History Family History Mother No problems noted. Father No problems noted. Brother CAD (coronary artery disease) Sister Alzheimer disease Social History Social History (System 09/14/23 @ 15:07 by Leidy Patton) Are you a primary healthcare applications analyst to a significant other at home: No Do you presently have visiting nurse or other home services: Yes Alcohol intake: never Patient Tobacco Use Status: Current everyday Tobacco user Cigarette Packs Per Day: 0.5 Cigarettes Per Day: 10.0 Years Smoked: 60 +/- Smoked in Last 30 Days: Yes Use of substances other than those prescribed or required for medical reasons: No Advance Directives: No Advance Directives Information Provided: No Physical Exam ED Vital Signs: Vital Signs - 24 hr 10/15/23 10:25 10/15/23 14:45 10/15/23 15:30 Temperature 97.0 F 98.7 F Pulse Rate 60 80 91 Respiratory Rate 16 18 16 Blood Pressure 114/58 L 136/84 Pulse Oximetry 94 91 L Oxygen Delivery Method Room Air Room Air 10/15/23 15:47 10/15/23 15:49 10/15/23 17:59 Temperature 98.8 F 98.6 F Pulse Rate 51 68 54 Respiratory Rate 20 20 16 Blood Pressure 106/64 106/64 Pulse Oximetry 92 92 Oxygen Delivery Method Room Air Room Air BMI result Body Mass Index 29.6 Const Other: The patient is awake and alert. He does not appear in obvious distress in any way. No increased work of breathing. No apparent discomfort. HENMT Other: Face is symmetrical. Mucous membranes moist. Eyes Other: Pupils are round and equal, conjunctivae are clear Neck Other: No JVD, no cervical adenopathy. Resp Other: No increased work of breathing. The patient has some wheezes and crackles bilaterally. the Cardio Rate: regular rate Rhythm: regular rhythm Heart sounds: S1 normal heart sound present and S2 normal heart sound present GI Other: Abdomen is soft and nontender Skin Other: Skin is dry and unremarkable Neuro Other: The patient is awake, alert, oriented, appropriate. Speech is clear. Face symmetrical. Eye movements normal. Moving all 4 extremities normally. Patient is grossly neurologically intact. Extrem Other: No peripheral edema, no calf swelling or tenderness, no asymmetry. Medications Administered Discontinued Medications Generic Name Dose Route Start Last Admin Trade Name Freq PRN Reason Stop Dose Admin Acetaminophen 975 mg 10/15/23 13:04 10/15/23 14:05 Acetaminophen 325 Mg Tablet PO 10/15/23 13:05 975 mg ONCE ONE Administration Albuterol Sulfate 4 puff 10/15/23 14:00 10/15/23 14:43 Albuterol Sulfate 90 Mcg 8 Gm Inhaler INHALE 10/15/23 14:01 4 puff ONCE ONE Administration Albuterol Sulfate 4 puff 10/15/23 15:47 10/15/23 15:49 Albuterol Sulfate 90 Mcg 8 Gm Inhaler INHALE 10/15/23 15:48 4 puff ONCE ONE Administration Sodium Chloride 1,000 mls @ 999 mls/hr 10/15/23 13:15 10/15/23 16:00 Ns IV 10/15/23 14:15 Infused .Q1H1M JUAN Infusion Prednisone 60 mg 10/15/23 15:40 10/15/23 15:59 Prednisone 20 Mg Tablet PO 10/15/23 15:41 60 mg ONCE ONE Administration Medical Decision Making Medical Decision Making [facility] Narrative: The patient is a 78-year-old male who comes in with a complaint of loose stools. He initially denied any other complaints but his daughter said that they were also concerned that he seems short of breath at home. He describes feeling unwell for about 3 days with generalized complaints of feeling unwell. No chest pain. He has tested positive for influenza. Apparently other people at his home are also having similar symptoms. The patient is a smoker. Chest x-ray shows no findings. He was mildly wheezy. He is tested positive for influenza B today. His BNP is normal. His BUN is mildly elevated at 23. Perhaps he is somewhat dehydrated. He was given a L of IV normal saline. It was also given a dose of acetaminophen. He was given albuterol. Ultimately he felt better and seemed well enough for discharge. He will be placed on short course of prednisone because of his shortness of breath. He is advised to stop smoking. Lab Data 10/15/23 10:58 10/15/23 10:58 Labs: Lab Results 10/15/23 10/15/23 10/15/23 Range/Units 10:58 11:03 11:26 WBC 4.7 L (4.8-10.8) X10*3/uL RBC 5.01 (4.60-5.80) X10*6/uL Hgb 15.3 (14.0-18.0) g/dl Hct 44.1 (42.0-52.0) % MCV 88.0 (80.0-98.0) fL MCH 30.5 (27.0-33.0) pg MCHC 34.7 (31.0-36.0) g/dl RDW 14.8 (11.0-16.0) % Plt Count 122 L (160-400) X10*3/uL MPV 12.4 (9.4-12.4) fL Immature Gran % (Auto) 0.2 (0.0-0.4) % Neut % (Auto) 63.3 (45-73) % Lymph % (Auto) 16.0 L (20-40) % Robertson % (Auto) 19.9 H (2-11) % Eos % (Auto) 0.2 (0-4) % Baso % (Auto) 0.4 (0-2) % Lymph # (Auto) 0.8 L (1.2-4.9) X10*3/uL Robertson # (Auto) 0.9 (0.1-1.2) X10*3/uL Eos # (Auto) 0.0 (0.0-0.4) X10*3/uL Baso # (Auto) 0.0 (0.0-0.2) X10*3/uL Abs Immat Gran (auto) 0.01 (0.00-0.03) X10*3/uL Absolute Neuts (auto) 3.0 (2.0-8.3) x10*3/uL Absolute Nucleated RBC 0.000 (0.0-0.012) X10*3/uL Nucleated RBC % (auto) 0.0 (0.0-0.2) /100WBC Sodium 140 (135-145) mmol/L Potassium 3.9 (3.3-5.1) mmol/L Chloride 106 (96-108) mmol/L Carbon Dioxide 26 (22-29) mmol/L Anion Gap 12 (12-20) BUN 23 H (9-16) mg/dL Creatinine 0.95 (0.5-1.4) mg/dL Estim Creat Clear Calc 77.0 Estimated GFR > 60 Random Glucose 110 (60-115) mg/dL Calcium 8.6 D (8.4-10.2) mg/dL Total Bilirubin 0.5 (0.0-1.0) mg/dL AST 47 H (5-37) U/L ALT 35 (0-40) U/L Alkaline Phosphatase 69 (39-117) U/L B-Natriuretic Peptide 68 (<100) pg/mL Total Protein 7.0 (6.5-8.0) g/dL Albumin 3.7 (3.5-5.0) g/dL Lipase 6 L (8-78) U/L Urine Color Dark Yellow Urine Appearance Clear Urine pH 5.5 (5.0-9.0) Ur Specific Orient 1.025 (1.005-1.025) Urine Protein 30 (1+) H (Neg-Trace) mg/dL Urine Glucose (UA) Negative (Negative) mg/dL Urine Ketones Negative (Negative) mg/dL Urine Blood Negative (Negative) Urine Nitrite Negative (Negative) Ur Leukocyte Esterase Negative (Negative) Urine RBC 0-2 (0-2) /HPF Urine WBC 0-5 (0-5) /HPF Ur Squamous Epith Cells 3-5 (0-2) /HPF Urine Bacteria None Seen (None Seen) Hyaline Casts 0-2 (0-2) /LPF Influenza Type A (PCR) NEGATIVE (Negative) Influenza Type B (PCR) POSITIVE A (Negative) RSV RNA Qual (PCR) NEGATIVE (Negative) SARS-CoV-2 RNA (RT-PCR) NEGATIVE (Negative) Discharge Plan Discharge Clinical Impression: Influenza, Acute dehydration, Acute exacerbation of chronic obstructive pulmonary disease Patient Disposition: Home, Self-Care Instructions: How to Use a Metered-Dose Inhaler (ED), Influenza (ED), COPD (Chronic Obstructive Pulmonary Disease) (ED) Additional Instructions: You tested positive for influenza today. I think you were mildly dehydrated. Please plan on resting and taking it easy for the next several days. It will probably take a few more days to get over this illness. You may use acetaminophen as needed for discomfort. For your breathing you may use albuterol 2 puffs every 4-6 hours as needed for any shortness of breath. Additionally take the prednisone prescribed once a day for the next 3 days. You received a dose of prednisone today. Take your next dose tomorrow. I would recommend that you do not resume smoking after you are feeling better. Drink lot of fluids. Stay in touch with your regular doctor's office for additional advice as needed. Return to the emergency room if you feel significantly worse. Prescriptions: New prednisone 20 mg tablet 40 mg PO DAILY 3 Days Qty: 6 0RF albuterol sulfate 90 mcg/actuation HFA aerosol inhaler 2 puff inhalation Q4-6H PRN (Reason: shortness of breath or wheezing) Qty: 8.5 0RF No Action doxazosin 8 mg tablet 8 mg PO BEDTIME latanoprost 0.005 % drops 1 drp ophthalmic (eye) QPM loratadine [Allergy Relief (loratadine)] 10 mg tablet 10 mg PO DAILY cholecalciferol (vitamin D3) 25 mcg (1,000 unit) capsule 25 mcg PO DAILY diclofenac sodium [Voltaren] 1 % gel 2 g topical QID Rx Instructions: apply to single elbow, wrist or hand; for hand includes palm/fingers/back of hand sertraline 25 mg tablet 25 mg PO QAM hydralazine 100 mg tablet 100 mg PO TID metformin 500 mg tablet extended release 24 hr 500 mg PO QPM fluticasone propion-salmeterol [Advair Diskus] 500-50 mcg/dose blister with device 1 ea inhalation amlodipine 5 mg tablet 5 mg PO QAM atorvastatin 40 mg tablet 40 mg PO BEDTIME carvedilol 25 mg tablet 25 mg PO finasteride 5 mg tablet 5 mg PO QAM furosemide 20 mg tablet 20 mg PO QAM lisinopril 40 mg tablet 40 mg PO QPM mupirocin 2 % ointment topical TID (DME) OneTouch Ultra Test Strip See Rx Instructions .ROUTE BID Qty: 10 Rx Instructions: As directed (DME) lancets Misc See Rx Instructions .ROUTE BID Qty: 100 Rx Instructions: As directed Referrals: Bridgette Gandhi MD [Primary Care Provider] - (Influenza B) Interventions: ED Discharge Assessment Last Done: 10/15/23 18:07 Discharge Date/Time: 10/15/23 18:08
[2023-10-15 13:53] LABS: B Type Natriuretic Peptide 68 pg/mL (<100)
[2023-10-15] MEDS: 0.9 % Sodium Chloride 1,000 ML 999 ML IV (14:02)
[2023-10-15] MEDS: Acetaminophen 325 MG TABLET 975 MG PO (14:05)
--- NOTE | 2023-10-15 14:17 | PC.NURSE ---
pt medicated per MAR
[2023-10-15] MEDS: Albuterol Sulfate 90 MCG 8 GM INHALER 4 PUFF INHALE ×2 (14:43→15:49)
[2023-10-15 14:45] VITALS: PULSE 80; RESP 18; O2SAT 94
[2023-10-15 15:30] VITALS: BP 136/84; PULSE 91; RESP 16; TEMP 37.1; O2SAT 91
[2023-10-15 15:47] VITALS: BP 106/64; PULSE 51; RESP 20; TEMP 37.1; O2SAT 92
[2023-10-15 15:49] VITALS: PULSE 68; RESP 20; O2SAT 92
[2023-10-15] MEDS: predniSONE 20 MG TABLET 60 MG PO (15:59)
[2023-10-15 17:59] VITALS: BP 106/64; PULSE 54; RESP 16; TEMP 37; O2SAT 92
== END 2023-10-15 18:08 | disposition home or self-care (01) ==
PROVIDERS: Physician Assistant; Emergency Provider Emergency Medicine; PCP Family Medicine
DX: J10.1 Influenza due to other identified influenza virus with other respiratory manifestations (principal); J44.1 Chronic obstructive pulmonary disease with (acute) exacerbation; R06.02 Shortness of breath; E86.0 Dehydration; Z11.52 Encounter for screening for COVID-19; Z20.822 Contact with and (suspected) exposure to COVID-19; Z79.899 Other long term (current) drug therapy
CPT/HCPCS: 0241U; 36415; 71045; 80053; 81001; 83690; 83880; 85025; 94640; 94664; 96360; 96361; 99284; 99285

== ENCOUNTER 2023-10-24 10:54 | Emergency (ER) | payer OTHER, SELFPAY ==
--- NOTE | ~2023-10-24 | XR_ITS ---
EXAMINATION: XR CHEST CLINICAL INFORMATION: Chest pain COMPARISON: Chest 10/15/2023 TECHNIQUE: 2 views of the chest were obtained. FINDINGS: No significant abnormality is noted involving the heart, lungs, mediastinum, bony thorax or soft tissues. XR/XR chest 2V IMPRESSION: Unremarkable chest examination.
--- NOTE | 2023-10-24 10:55 | ECG_ITS ---
Test Reason : CP Blood Pressure : / mmHG Vent. Rate : 069 BPM Atrial Rate : 069 BPM P-R Int : 186 ms QRS Dur : 112 ms QT Int : 376 ms P-R-T Axes : 037 -51 095 degrees QTc Int : 402 ms Normal sinus rhythm Left anterior fascicular block Minimal voltage criteria for LVH, may be normal variant ( R in aVL ) Possible Anterior infarct , age undetermined Abnormal ECG When compared to the previous EKG of No significant changes seen Referred By: Generic ED Physician Electronically Signed By:PRADEEP ANDREA MD
[2023-10-24 11:10] VITALS: BP 96/57; PULSE 70; RESP 20; TEMP 36.1; O2SAT 93; BMI 36.9
--- NOTE | 2023-10-24 11:10 | ED.GENADULT ---
HPI - General Adult General Chief complaint: Dyspnea Stated complaint: chest pain Time Seen by Provider: 10/24/23 11:42 Source: patient and family Mode of arrival: ambulatory Limitations: language barrier (Danish-speaking oracle ebs consultant utilized) History of Present Illness HPI narrative: Patient is a 78-year-old male who presents emergency department for evaluation of concern for asthma exacerbation with shortness breath, diffuse anterior chest pain that is exacerbated with coughing particular movements. Per patient and his family he was recently diagnosed with influenza B, while taking prednisone he was feeling much better. He completed this 6 days ago and after completing his symptoms began returning. He has tried his nebulizer and inhaler at home without much improvement. He is a cigarette smoker and continues to smoke 8-10 cigarettes daily. Family does admit that he has a follow-up appointment with his bander hand on Thursday, in 4 days. He is noted to have O2 saturation at 92% on room air, for family this is lower than his baseline. He denies any persistent fevers or chills, nausea, vomiting, abdominal pain, numbness or tingling of the extremities. Related Data Home Medications Medication Instructions Recorded Confirmed cholecalciferol (vitamin D3) 25 25 mcg PO DAILY 06/19/20 06/02/23 mcg (1,000 unit) capsule diclofenac sodium 1 % topical gel 2 g topical QID 06/19/20 06/02/23 (Voltaren) doxazosin 8 mg tablet 8 mg PO BEDTIME 06/19/20 06/02/23 latanoprost 0.005 % eye drops 1 drp ophthalmic (eye) QPM 06/19/20 06/02/23 loratadine 10 mg tablet (Allergy 10 mg PO DAILY 06/19/20 06/02/23 Relief (loratadine)) amlodipine 5 mg tablet 5 mg PO QAM 01/28/23 06/02/23 atorvastatin 40 mg tablet 40 mg PO BEDTIME 01/28/23 06/02/23 blood sugar diagnostic (OneTouch #10 ea 01/28/23 06/02/23 Ultra Test strips) carvedilol 25 mg tablet 25 mg PO 01/28/23 06/02/23 finasteride 5 mg tablet 5 mg PO QAM 01/28/23 06/02/23 fluticasone 500 mcg-salmeterol 50 1 ea inhalation 01/28/23 06/02/23 mcg/dose blistr powdr for inhalation (Advair Diskus) furosemide 20 mg tablet 20 mg PO QAM 01/28/23 06/02/23 hydralazine 100 mg tablet 100 mg PO TID 01/28/23 06/02/23 lancets #100 ea 01/28/23 06/02/23 lisinopril 40 mg tablet 40 mg PO QPM 01/28/23 06/02/23 metformin 500 mg tablet,extended 500 mg PO QPM 01/28/23 06/02/23 release 24 hr mupirocin 2 % topical ointment topical TID 01/28/23 06/02/23 sertraline 25 mg tablet 25 mg PO QAM 01/28/23 06/02/23 Previous Rx's Medication Instructions Recorded albuterol sulfate 90 mcg/actuation 2 puff inhalation Q4-6H PRN 10/15/23 aerosol inhaler shortness of breath or wheezing #8.5 grams prednisone 20 mg tablet 40 mg (2 x 20 mg) PO DAILY 3 days 10/15/23 #6 tabs azithromycin 250 mg tablet See Rx Instructions PO .COMPLEX #6 10/24/23 tabs prednisone 20 mg tablet 40 mg (2 x 20 mg) PO DAILY 3 days 10/24/23 #6 tabs Allergies Allergy/AdvReac Type Severity Reaction Status Date / Time Penicillins Allergy Intermediate RASH Verified 10/15/23 10:25 Carbapenems Allergy Unknown Unknown Verified 10/15/23 10:25 Cephalosporins Allergy Unknown Unknown Verified 10/15/23 10:25 enviormental Allergy Severe coughing Uncoded 10/15/23 10:25 and sneezing Review of Systems Review of Systems: Yes all other systems are reviewed and are negative [facility] Past Medical History Attestation statement: The following information was validated with the patient. Source: old records reviewed Medical History Spondylosis of lumbar region without myelopathy or radiculopathy Low back pain HTN (hypertension) Arthritis History of back pain History of fatty infiltration of liver Seasonal allergies Elevated cholesterol Asthma Anxiety Depression Diabetes mellitus History of COVID-19 Allergic rhinitis HSANON (obstructive sleep apnea) Obesity Smoker Surgical History Hx of ventral hernia repair Hx of colonoscopy History of left cataract extraction History of cystoscopy Hx of umbilical hernia repair Family History Family History Mother No problems noted. Father No problems noted. Brother CAD (coronary artery disease) Sister Alzheimer disease Social History Social History (System 09/14/23 @ 15:07 by Leidy Patton) Are you a primary before and after school daycare worker to a significant other at home: No Do you presently have visiting nurse or other home services: Yes Alcohol intake: never Patient Tobacco Use Status: Current everyday Tobacco user Cigarette Packs Per Day: 0.5 Cigarettes Per Day: 10.0 Years Smoked: 60 +/- Advance Directives: No Advance Directives Information Provided: No Physical Exam ED Vital Signs: Vital Signs - 24 hr 10/24/23 11:10 10/24/23 12:44 10/24/23 14:50 Temperature 97 F 100.1 F Pulse Rate 70 Respiratory Rate 20 20 Blood Pressure 96/57 L Pulse Oximetry 93 Oxygen Delivery Method Room Air BMI result Body Mass Index 36.9 Appearance: Alert.?Oriented to person, place and time. No acute distress.?Normal affect. Eyes: Pupils equal, round and reactive to light.? ENT: Pharynx normal.?? Neck: Normal inspection.? Neck supple.?? CVS: Heart sounds normal. Normal heart rate and rhythm.? Pulses normal.?? Respiratory: No respiratory distress.? Lung sounds with rhonchi bilaterally Abdomen: Soft and non-tender. Normoactive bowel sounds. No pulsatile mass.?? Skin: Skin warm and dry.? Normal skin color.? Normal skin turgor.?? Extremities: No lower extremity edema.? No calf ttp? Neuro: Moves all extremities spontaneously. Sensation intact bilaterally. CN II-XII intact. No focal neuro deficits. Ambulates with normal steady gait. Course Course Course Narrative: This is a rapid medical exam: Additional HPI, ROS, PE not included below will be deferred to primary provider. Patient is a 78-year-old male with history of DM, asthma, SHANON, HTN presenting to the emergency department with ongoing shortness of breath, chest pain with breathing. Seen here on for similar symptoms. O2 92% on room air in triage. Plan: labs, EKG, CXR, brought back to room in main ED Reevaluation(s) Reevaluation #1: Viral testing today is negative. CBC reveals a mild leukocytosis of 13.1 with left shift. Overall unremarkable BMP, T bili noted to be mildly elevated at 1.3 albumin just below normal at 3.4, remainder of LFTs within normal range, anticipate this is likely secondary to infectious, remains below to not consistent with severe sepsis. High sensitive troponin within normal range at 17.8, EKG revealing normal sinus rhythm with ventricular rate of 69, QTC 402, no ST elevation, no ST depression, less likely ACS given duration of symptoms. BNP not consistent with CHF. Chest x-ray is without acute cardiopulmonary abnormality. Reevaluation #2: Subjective improvement in symptoms after receiving breathing treatment and prednisone. Ambulatory O2 trialed without significant dyspnea. Is able to ambulate an O2 saturation remaining greater than 92% on room air. Reports feeling well enough to go home. Chest pain most likely pleuritic in nature, suspect asthma exacerbation etiology for symptoms, he may have underlying COPD for which I have sent a prescription for azithromycin to his pharmacy. Discussed strict return precautions and outpatient follow-up with PCP/pulmonology as scheduled. Stable for discharge. Time: 15:09 Medications Administered Discontinued Medications Generic Name Dose Route Start Last Admin Trade Name Freq PRN Reason Stop Dose Admin Albuterol Sulfate 2.5 mg/ 0 mg 10/24/23 12:24 10/24/23 12:41 Albuterol/Ipratropium 3 ml INHALE 10/24/23 12:25 5 dose ONCE ONE Administration Prednisone 60 mg 10/24/23 12:13 10/24/23 13:22 Prednisone 20 Mg Tablet PO 10/24/23 12:14 60 mg ONCE ONE Administration Medical Decision Making Medical Decision Making [facility] Narrative: Patient is a 78-year-old male with past medical history of hypertension, arthritis, seasonal allergies, hypercholesterolemia, asthma, anxiety, depression, diabetes mellitus, obstructive sleep apnea, obesity, tobacco abuse who presents emergency department for evaluation of chest pain and shortness of breath as per HPI, with personal concern for persistent asthma exacerbation despite recent treatment with prednisone. At the time my examination he appears overall well, he is able to speak clear full sentences. He is managing his secretions. No tachypnea or tachycardia, he is noted to have room air O2 saturation 92% which per family is lower than his baseline. Upon review with his prior visit 10/15/2023 his oxygen saturation at that time is consistent with low 90s. Given his recent viral illness with influenza B, plan to obtain serum labs and chest x-ray to exclude superimposed pneumonia/bacterial infection. Clinically have lower suspicion for alternative pathology such as CHF given no history and no edema do not appreciate any rales on examination. In addition will obtain EKG and troponin to exclude ACS though history is not sound consistent with this. Differential Diagnosis Differential Diagnoses: The differential diagnosis associated with the presentation includes (See narrative above) Admission/Observation Consideration of admission/observation: Escalation of care including admission/observation considered (See narrative above and course narrative for further detail) Lab Data MDM Lab Attestation statement: I reviewed the patient's lab results. (See course narrative) 10/24/23 11:29 10/24/23 11:29 Labs: Lab Results 10/24/23 Range/Units 11:29 WBC 13.1 H (4.8-10.8) X10*3/uL RBC 4.77 (4.60-5.80) X10*6/uL Hgb 14.5 (14.0-18.0) g/dl Hct 42.1 (42.0-52.0) % MCV 88.3 (80.0-98.0) fL MCH 30.4 (27.0-33.0) pg MCHC 34.4 (31.0-36.0) g/dl RDW 14.2 (11.0-16.0) % Plt Count 198 D (160-400) X10*3/uL MPV 11.4 (9.4-12.4) fL Immature Gran % (Auto) Cancelled Neut % (Auto) Cancelled Lymph % (Auto) Cancelled Glades % (Auto) Cancelled Eos % (Auto) Cancelled Baso % (Auto) Cancelled Lymph # (Auto) Cancelled Glades # (Auto) Cancelled Eos # (Auto) Cancelled Baso # (Auto) Cancelled Abs Immat Gran (auto) Cancelled Absolute Neuts (auto) Cancelled Absolute Nucleated RBC 0.000 (0.0-0.012) X10*3/uL Nucleated RBC % (auto) 0.0 (0.0-0.2) /100WBC Neutrophils % (Manual) 80 H (45-73) % Band Neutrophils % 2 L (3-5) % Lymphocytes % (Manual) 7 L (20-40) % Atypical Lymphs % (Man) 1 (0-6) % Monocytes % (Manual) 10 (2-11) % Abs Neuts (Manual) 10.7 H (2.0-8.3) X10*3/uL Lymphocytes # (Manual) 0.9 L (1.2-4.9) X10*3/uL Atyp Lymphs # (Manual) 0.1 x10*3/uL Monocytes # (Manual) 1.3 H (0.1-1.2) X10*3/uL Platelet Estimate NORMAL (NORMAL) Large Platelets PRESENT Plt Morphology Comment NOTED RBC Morphology NOTED Ovalocytes 1+ (5-14) /OIF Acanthocytes (Spur) 1+ (0-2) /OIF Sodium 139 (135-145) mmol/L Potassium 3.5 (3.3-5.1) mmol/L Chloride 106 (96-108) mmol/L Carbon Dioxide 26 (22-29) mmol/L Anion Gap 11 L (12-20) BUN 17 H (9-16) mg/dL Creatinine 0.70 (0.5-1.4) mg/dL Estim Creat Clear Calc 104.7 Estimated GFR > 60 Random Glucose 141 H (60-115) mg/dL Calcium 8.9 (8.4-10.2) mg/dL Total Bilirubin 1.3 H (0.0-1.0) mg/dL AST 28 (5-37) U/L ALT 34 (0-40) U/L Alkaline Phosphatase 59 (39-117) U/L Troponin I High Sens 17.8 (<3.5-35.0) ng/L B-Natriuretic Peptide 149 H (<100) pg/mL Total Protein 7.3 (6.5-8.0) g/dL Albumin 3.4 L (3.5-5.0) g/dL Influenza Type A (PCR) NEGATIVE (Negative) Influenza Type B (PCR) NEGATIVE (Negative) RSV RNA Qual (PCR) NEGATIVE (Negative) SARS-CoV-2 RNA (RT-PCR) NEGATIVE (Negative) Independent Interpretation I performed an independent interpretation of an: EKG (See Course narrative) and Plain X-Ray (No evidence of pneumonia or effusion) Radiology Impression Discussion of test interpretation with radiology: I have reviewed the radiologist's reading. Radiologist Impression: XR/XR chest 2V IMPRESSION: Unremarkable chest examination. Critical Care Time Critical Care Time Critical Care Time: Yes Total Critical Care Time: 48 Attestation: I personally attest to this critical care time spent taking care of the patient exclusive of all other billable procedures was approximately 48 minutes including initial evaluation of patient, ordering tests, x-ray interpretation, EKG interpretation, medical consultation, documentation, re-evaluation. Discharge Plan Discharge Clinical Impression: Asthma with exacerbation Patient Disposition: Home, Self-Care Instructions: Asthma (ED) Additional Instructions: A prescription was sent for a short additional course of prednisone to your pharmacy. In addition a prescription for azithromycin present to the pharmacy. Continue using your albuterol inhaler and nebulizer as prescribed. Use the breathing assistive device as instructed. Return back to emergency department any new or worsening symptoms or concerns. Follow-up outpatient with her primary care provider/bander hand as scheduled. Prescriptions: New prednisone 20 mg tablet 40 mg PO DAILY 3 Days Qty: 6 0RF azithromycin 250 mg tablet See Rx Instructions .ROUTE .COMPLEX Qty: 6 0RF Rx Instructions: For 250 mg dose pack: take 500 mg today (day 1), then 250 mg for 4 days (days 2-5) No Action prednisone 20 mg tablet 40 mg PO DAILY 3 Days Qty: 6 0RF albuterol sulfate 90 mcg/actuation HFA aerosol inhaler 2 puff inhalation Q4-6H PRN (Reason: shortness of breath or wheezing) Qty: 8.5 0RF doxazosin 8 mg tablet 8 mg PO BEDTIME latanoprost 0.005 % drops 1 drp ophthalmic (eye) QPM loratadine [Allergy Relief (loratadine)] 10 mg tablet 10 mg PO DAILY cholecalciferol (vitamin D3) 25 mcg (1,000 unit) capsule 25 mcg PO DAILY diclofenac sodium [Voltaren] 1 % gel 2 g topical QID Rx Instructions: apply to single elbow, wrist or hand; for hand includes palm/fingers/back of hand sertraline 25 mg tablet 25 mg PO QAM hydralazine 100 mg tablet 100 mg PO TID metformin 500 mg tablet extended release 24 hr 500 mg PO QPM fluticasone propion-salmeterol [Advair Diskus] 500-50 mcg/dose blister with device 1 ea inhalation amlodipine 5 mg tablet 5 mg PO QAM atorvastatin 40 mg tablet 40 mg PO BEDTIME carvedilol 25 mg tablet 25 mg PO finasteride 5 mg tablet 5 mg PO QAM furosemide 20 mg tablet 20 mg PO QAM lisinopril 40 mg tablet 40 mg PO QPM mupirocin 2 % ointment topical TID (DME) OneTouch Ultra Test Strip See Rx Instructions .ROUTE BID Qty: 10 Rx Instructions: As directed (DME) lancets Misc See Rx Instructions .ROUTE BID Qty: 100 Rx Instructions: As directed Referrals: Bridgette Gandhi MD [Primary Care Provider] - Interventions: ED Discharge Assessment Last Done: 10/24/23 15:38 Discharge Date/Time: 10/24/23 15:39
[2023-10-24 11:37] LABS: Hematocrit 42.1 % (42.0-52.0); Hemoglobin 14.5 g/dl (14.0-18.0); Mean Corpuscular HGB Conc 34.4 g/dl (31.0-36.0); Mean Corpuscular Hemoglobin 30.4 pg (27.0-33.0); Mean Corpuscular Volume 88.3 fL (80.0-98.0); Mean Platelet Volume 11.4 fL (9.4-12.4); Platelet Count 198 X10*3/uL (160-400); Red Blood Count 4.77 X10*6/uL (4.60-5.80); Red Cell Distribution Width 14.2 % (11.0-16.0); WBC ABN SCTR FOR CBC 1
[2023-10-24 11:51] LABS: Alanine Aminotransferase 34 U/L (0-40); Albumin Level 3.4 g/dL (3.5-5.0); Alkaline Phosphatase 59 U/L (39-117); Anion Gap 11 (12-20); Aspartate Amino Transferase 28 U/L (5-37); Bilirubin Total 1.3 mg/dL (0.0-1.0); Blood Urea Nitrogen 17 mg/dL (9-16); Calcium 8.9 mg/dL (8.4-10.2); Carbon Dioxide 26 mmol/L (22-29); Chloride 106 mmol/L (96-108); Creatinine Clr Calc Pharmacy 104.7; Estimated Glomerular Filt Rate > 60; Glucose Random 141 mg/dL (60-115); Potassium 3.5 mmol/L (3.3-5.1); Sodium 139 mmol/L (135-145); Total Protein 7.3 g/dL (6.5-8.0)
[2023-10-24 11:55] LABS: B Type Natriuretic Peptide 149 pg/mL (<100)
[2023-10-24 11:59] LABS: Troponin-I High Sensitivity 17.8 ng/L (<3.5-35.0)
[2023-10-24 12:04] LABS: Atypical Lymphs Percent Manual 1 % (0-6); Band Neutrophils Percent 2 % (3-5); Lymphocytes Percent Manual 7 % (20-40); Monocytes Percent Manual 10 % (2-11); Neutrophils Percent Manual 80 % (45-73)
[2023-10-24 12:06] LABS: RBC Morphology NOTED
[2023-10-24 12:08] LABS: Acanthocytes 1+ (0-2) /OIF; Large Platelet PRESENT; Ovalocytes 1+ (5-14) /OIF; Platelet Estimate NORMAL (NORMAL); Platelet Morphology Comment NOTED
[2023-10-24 12:10] LABS: Atypical Lymph Absolute Manual 0.1 x10*3/uL; Lymphocytes Absolute Manual 0.9 X10*3/uL (1.2-4.9); Monocytes Absolute Manual 1.3 X10*3/uL (0.1-1.2); Neutrophils Absolute Manual 10.7 X10*3/uL (2.0-8.3); White Blood Count 13.1 X10*3/uL (4.8-10.8)
[2023-10-24 12:17] LABS: Influenza A PCR NEGATIVE (Negative); Influenza B PCR NEGATIVE (Negative); Resp Syncy Virus RNA Qual PCR NEGATIVE (Negative); SARS COV2 PCR INHOUSE NEGATIVE (Negative)
[2023-10-24] MEDS: Albuterol Sulfate 2.5 MG, Albuterol/Iprat 2.5/0.5MG 3 ML 3 ML INHALE (12:41)
[2023-10-24 12:44] VITALS: RESP 20; O2SAT 92
[2023-10-24] MEDS: predniSONE 20 MG TABLET 60 MG PO (13:22)
--- NOTE | 2023-10-24 13:29 | PC.NURSE ---
pt medicated per MAR.
[2023-10-24 14:50] VITALS: TEMP 37.8
== END 2023-10-24 15:39 | disposition home or self-care (01) ==
PROVIDERS: Registered Nurse Emergency; Emergency Provider Student in an Organized Health Care Education/Training Program; PCP Family Medicine
DX: J45.901 Unspecified asthma with (acute) exacerbation (principal); R06.02 Shortness of breath; R07.9 Chest pain, unspecified; R05.9 Cough, unspecified; I10 Essential (primary) hypertension; E11.9 Type 2 diabetes mellitus without complications; Z79.899 Other long term (current) drug therapy; Z11.52 Encounter for screening for COVID-19; Z20.828 Contact with and (suspected) exposure to other viral communicable diseases
CPT/HCPCS: 0241U; 36415; 71046; 80053; 83880; 84484; 85007; 85027; 93005; 94640; 99284; 99285

== ENCOUNTER → 2023-10-24 10:55 | Outpatient (BNV) | payer OTHER, SELFPAY | PROVIDERS: Emergency Provider Student in an Organized Health Care Education/Training Program; PCP Family Medicine; Visit Provider Internal Medicine Cardiovascular Disease | DX: I44.4 Left anterior fascicular block (principal) | CPT/HCPCS: 93010 ==

== ENCOUNTER 2023-10-28 13:24 | Outpatient (AMB) | payer OTHER, SELFPAY ==
[2023-10-28 13:30] VITALS: BP 127/59; PULSE 64; O2SAT 94; BMI 34.0
--- NOTE | 2023-10-28 13:30 | A.OFFVIS_ITS ---
Intake Vital Signs 10/28/23 13:30 Height 5 ft 8 in Weight 223 lb 12.307 oz BMI 34.0 BP 127/59 L Blood Pressure Location Rt brachial Position Sitting Pulse 64 Pulse Source Doppler Pulse Oximetry (%) 94 Oxygen Delivery Method Room Air Intake Visit Reasons: COPD Biblical Languages Professor Required: Yes Biblical Languages Professor Name: Debbi Dow Allergies Penicillins Allergy (Intermediate, Verified 10/28/23 13:36) RASH Carbapenems Allergy (Unknown, Verified 10/28/23 13:36) Unknown Cephalosporins Allergy (Unknown, Verified 10/28/23 13:36) Unknown enviormental Allergy (Severe, Uncoded 10/15/23 10:25) coughing and sneezing HPI COPD HPI Details 78-year-old gentleman, recent 30+ pack-y ear smoker, quit September of 2023 referred for evaluation of dyspnea exertion likely COPD. Does complain dyspnea on exertion, also dyspnea at rest, and orthopnea. He has been using Advair albuterol MDI with suboptimal control of his symptoms. Patient has also Lasix 20 mg every morning. Patient denies family history of lung disease. Denies exposure to industrial dusts. At this time patient is on 5 blood pressure medication and states that intermittently his systolic pressure goes down to 90s. PFSH Medical History Spondylosis of lumbar region without myelopathy or radiculopathy Low back pain HTN (hypertension) Arthritis History of back pain History of fatty infiltration of liver Seasonal allergies Elevated cholesterol Asthma Anxiety Depression Diabetes mellitus History of COVID-19 Allergic rhinitis SHANON (obstructive sleep apnea) Obesity Smoker Surgical History Hx of ventral hernia repair Hx of colonoscopy History of left cataract extraction History of cystoscopy Hx of umbilical hernia repair Family History Mother No problems noted. Father No problems noted. Brother CAD (coronary artery disease) Sister Alzheimer disease Social History (Updated 10/28/23 @ 13:38 by Debbi Garcia [facility]) Are you a primary intensive care unit registered nurse to a significant other at home: No Do you presently have visiting nurse or other home services: Yes Alcohol intake: never Patient Tobacco Use Status: Former Tobacco user Cigarette Packs Per Day: 0.5 Cigarettes Per Day: 10.0 Years Smoked: 60 +/- , quit- Oct 12 2023 Review of Systems Const Denies daytime sleepiness, Denies excessive sweating, Denies fatigue, Denies fever(s), Denies lethargy, Denies malaise, Denies night sweats, Denies snoring and Denies weight loss Eyes Denies blurry vision and Denies itchy eyes ENT Denies nasal congestion, Denies post nasal drip, Denies sinus pain, Denies sinus pressure and Denies other ( Thrush) Card Denies chest pain, Reports pedal edema, Denies dyspnea, Reports dyspnea on exertion, Reports orthopnea and Reports paroxysmal nocturnal dyspnea Resp Denies cough, Denies hemoptysis, Denies excessive phlegm production, Denies dyspnea, Reports dyspnea on exertion, Denies snoring and Denies wheezing GI Denies abdominal pain and Denies heartburn Musc Denies myalgias, Denies arthralgias and Denies joint swelling Skin/Breast Denies rash Neuro Denies memory loss and Denies seizure-like activity Psych Denies abnormal sleep pattern, Denies anxiety and Denies memory loss Endo Denies excessive sweating, Denies fatigue and Denies heat intolerance Wilber/Lymph Denies easy bruising Aller/Immun Denies itchy eyes, Denies seasonal rhinorrhea and Denies wheezing Physical Exam Vital Signs: Last Vital Signs Pulse 64 10/28/23 13:30 BP 127/59 L 10/28/23 13:30 Pulse Ox 94 10/28/23 13:30 Oxygen Delivery Method Room Air 10/28/23 13:30 BMI result Body Mass Index 34.0 Const General: no acute distress and alert Nutritional Appearance: obese Orientation/consciousness: Other orientation findings ( oriented) HEENT Head: Yes atraumatic Eyes General: appearance normal, both eyes and all related structures Sclerae: sclerae normal EOM: EOMs intact bilaterally Neck Neck: Yes supple Lymphatic: no lymphadenopathy noted Resp Effort & Inspection: normal respiratory effort and no use of accessory muscles Auscultation: clear to auscultation bilaterally Cardio Rate: regular rate Rhythm: regular rhythm Heart sounds: no gallops, no murmurs and no rubs Skin General skin exam: other ( warm) Extrem General: No clubbing, No cyanosis and Yes edema (1+ bilateral) Assessment & Plan Assessment & Plan (1) DAIGLE (dyspnea on exertion): Code(s): R06.09 - Other forms of dyspnea Plan: Likely multifactorial with contribution from underlying pulmonary and cardiac etiologies. Will obtain 2D echocardiogram and pulmonary function test. Will switch Advair to Anoro. Continue albuterol MDI. Will discontinue amlodipine and switch Lasix 20 mg daily to torsemide 20 mg daily. (2) Personal history of nicotine dependence: Code(s): Z87.891 - Personal history of nicotine dependence Plan: Will obtain follow-up lung cancer screening CT chest in November of 2023. Orders: Orders PFT pulmonary function test Today R06.09 - Other forms of dyspnea CA echo transthorac w con Today R06.09 - Other forms of dyspnea CT lung screening 11/28/23 Z87.891 - Personal history of nicotine dependence Medications: New torsemide 20 mg PO QAM 30 tabs 6RF 30 days umeclidinium-vilanterol 62.5-25 mcg/actuation (Anoro Ellipta) 1 inh inhalation DAILY 1 ea 6RF 30 days Discontinued prednisone Discontinued Reason: Doctor's Order 40 mg (2 x 20 mg) PO DAILY 3 days 6 tabs 0RF azithromycin Discontinued Reason: Doctor's Order For 250 mg dose pack: take 500 mg today (day 1), then 250 mg for 4 days (days 2-5) 6 tabs 0RF prednisone Discontinued Reason: Doctor's Order 40 mg (2 x 20 mg) PO DAILY 3 days 6 tabs 0RF Coding Level of Care Code New Pt Level 4 (07391) Diagnoses DAIGLE (dyspnea on exertion) R06.09 Personal history of nicotine dependence Z87.89
== END 2023-10-28 13:54 | disposition home or self-care (01) ==
PROVIDERS: PCP Family Medicine; Referring Provider Family Medicine; Visit Provider Internal Medicine Pulmonary Disease
DX: R06.09 Other forms of dyspnea (principal); Z87.891 Personal history of nicotine dependence
CPT/HCPCS: 99204

== ENCOUNTER → 2023-10-28 13:24 | Outpatient (BNVA) | payer OTHER, SELFPAY | PROVIDERS: PCP Family Medicine; Referring Provider Family Medicine; Visit Provider Internal Medicine Pulmonary Disease | DX: R06.09 Other forms of dyspnea (principal); Z87.891 Personal history of nicotine dependence | CPT/HCPCS: 99202 ==

== ENCOUNTER 2023-10-29 09:07 | Outpatient (REF) | payer OTHER, SELFPAY ==
--- NOTE | ~2023-10-29 | MR_ITS ---
EXAMINATION: MR LUMBAR SPINE WITHOUT CONTRAST CLINICAL INFORMATION: Spondylosis, radiculopathy, lower back pain COMPARISON: MRI lumbar spine 09/29/2022 TECHNIQUE: MRI of the lumbar spine was obtained using routine sequences without contrast. FINDINGS: Motion degraded examination. STIR sequence is particularly motion degraded and near nondiagnostic. Within this limitation, no significant marrow edema is identified. Rightward curvature of the lumbar spine. No suspicious marrow signal or focal osseous lesion. T12 and L2 vertebral body hemangiomas. Mild right-sided type II endplate marrow signal changes at L5-S1 The vertebral body heights are maintained. Multilevel disc dessication and height loss. The conus medullaris terminates at the level of L1. The distal spinal cord is normal in appearance. The cauda equina nerve roots appear normal. No significant abnormalities of the paraspinal musculature. Limited evaluation of the intra-abdominal structures without significant abnormalities. Right renal cyst for which no further imaging follow-up is required. The abdominal aorta is of normal contour and caliber. SPINAL LEVELS: T12-L1: Shallow disc bulge. No significant spinal canal or neural foraminal narrowing L1-L2: No significant spinal canal or neuroforaminal narrowing. Shallow disc bulge and mild facet arthropathy. L2-L3: No significant spinal canal or neuroforaminal narrowing. L3-L4: Left greater than right facet arthropathy. Left eccentric disc osteophyte complex. Ligamentum flavum thickening. No significant central spinal canal stenosis. Stable mild right and moderate to severe left neural foraminal narrowing with impingement of the exiting left L3 nerve root. L4-L5: Facet arthropathy. Shallow disc bulge. No significant central spinal canal stenosis. Stable mild bilateral neural foraminal narrowing, left greater than right. L5-S1: Right greater than left facet arthropathy with right joint effusion. Right eccentric disc osteophyte complex. No significant central spinal canal stenosis. Stable severe right neural foraminal narrowing with impingement of the exiting right L5 nerve root and right subarticular zone narrowing with possible impingement of the traversing right S1 nerve root MR/MR lumbar spine wo con IMPRESSION: Rightward curvature of the lumbar spine and multilevel spondylosis as described above appears similar to MRI from 09/29/2022 without significant central spinal canal narrowing. Neural foraminal stenosis is worst and severe on the right at L5-S1 with impingement of the exiting right L5 nerve root and moderate to severe on the left at L3-L4 with impingement of the exiting left L3 nerve root.
== END 2023-10-29 09:08 | disposition home or self-care (01) ==
LOC: HO.MRI 09:07
PROVIDERS: PCP Family Medicine; Visit Provider Anesthesiology
DX: M43.06 Spondylolysis, lumbar region (principal); M54.16 Radiculopathy, lumbar region
CPT/HCPCS: 72148

== ENCOUNTER 2023-11-11 13:42 | Outpatient (REF) | payer OTHER, SELFPAY ==
[2023-11-11 09:34] VITALS: PULSE 56; RESP 16; O2SAT 95
--- NOTE | 2023-11-11 15:06 | PFT_ITS ---
Flows: FEV1: 94 % of predicted at 2.00 L FVC: 108 % of predicted at 3.02 L FEV1/FVC: 66 % Bronchodilator response: Absent Volumes: Total lung capacity: 103 % of predicted at 5.37 L Residual volume: 103 % of predicted at 2.35 L Slow vital capacity: 106 % of predicted at 3.02 L Expiratory reserve volume: 133 % of predicted at 0.95 L Diffusion capacity: Normal Impression: Mild obstructive ventilatory defect with no bronchodilator response. MTDD
== END 2023-11-11 13:43 | disposition home or self-care (01) ==
LOC: HO.RESP 13:42
PROVIDERS: PCP Family Medicine; Visit Provider Internal Medicine Pulmonary Disease
DX: R06.09 Other forms of dyspnea (principal)
CPT/HCPCS: 94010; 94640; 94727; 94729

== ENCOUNTER → 2023-11-11 15:06 | Outpatient (BNV) | payer OTHER, SELFPAY | PROVIDERS: PCP Family Medicine; Visit Provider Internal Medicine Pulmonary Disease | DX: R06.09 Other forms of dyspnea (principal) | CPT/HCPCS: 94060; 94727; 94729 ==

== ENCOUNTER 2023-11-13 10:39 | Outpatient (AMB) | payer OTHER, SELFPAY ==
--- NOTE | 2023-11-13 11:02 | A.OFFVIS_ITS ---
Intake Vital Signs 11/13/23 11:08 Height 5 ft 8 in Weight 233 lb 4 oz BMI 35.5 BP 115/70 Blood Pressure Location Lt brachial Position Sitting Pulse 52 Pulse Source Pulse Oximeter Pulse Oximetry (%) 97 Oxygen Delivery Method Room Air Intake Visit Reasons: 1yr follow up SHANON/ Confirmed w/Daughter Intake Note: Patient presents for 1 F/U. Allergies Penicillins Allergy (Intermediate, Verified 11/13/23 11:07) RASH Carbapenems Allergy (Unknown, Verified 11/13/23 11:07) Unknown Cephalosporins Allergy (Unknown, Verified 11/13/23 11:07) Unknown enviormental Allergy (Severe, Uncoded 10/15/23 10:25) coughing and sneezing HPI HPI Comments History of Present Illness Details 78 y/o male patient presents with his isaac contreras for follow up for SHANON on CPAP. Pt reports new mask is comfortable and he can sleep with CPAP throughout the night. His sleep schedule is 9 pm to 6 am. He states that he can breath better with CPAP and also daytime tiredness has improved. He needs supplies. The CPAP compliance and therapy response (08/13/23-11/10/23) reviewed with patient. Pt is on APAP [id number]. Usage days 100%, average usage 8 hours 10 min. The max was pressure 13.7 and the residual AHI was 3.8/hr . PFSH Medical History Spondylosis of lumbar region without myelopathy or radiculopathy Low back pain HTN (hypertension) Arthritis History of back pain History of fatty infiltration of liver Seasonal allergies Elevated cholesterol Asthma Anxiety Depression Diabetes mellitus History of COVID-19 Allergic rhinitis SHANON (obstructive sleep apnea) Obesity Smoker Surgical History Hx of ventral hernia repair Hx of colonoscopy History of left cataract extraction History of cystoscopy Hx of umbilical hernia repair Family History Mother No problems noted. Father No problems noted. Brother CAD (coronary artery disease) Sister Alzheimer disease Social History Are you a primary day care aide to a significant other at home: No Do you presently have visiting nurse or other home services: Yes Alcohol intake: never Patient Tobacco Use Status: Former Tobacco user Cigarette Packs Per Day: 0.5 Cigarettes Per Day: 10.0 Years Smoked: 60 +/- , quit- Oct 12 2023 Review of Systems Const All systems reviewed & are unremarkable except as noted in HPI and below ENT Reports Normal hearing present Neuro Reports Normal hearing present Physical Exam Vital Signs: Last Vital Signs Pulse 52 11/13/23 11:08 BP 115/70 11/13/23 11:08 Pulse Ox 97 11/13/23 11:08 Oxygen Delivery Method Room Air 11/13/23 11:08 BMI result Body Mass Index 35.5 Const General: cooperative and comfortable Nutritional Appearance: obese Orientation/consciousness: patient oriented x3 Limitations: language barrier Neck Neck: Yes full ROM and Yes supple Resp Effort & Inspection: normal respiratory effort and able to speak in complete sentences Neuro General: patient oriented x3, gait normal and moves all extremities Cranial nerves: Yes Bilaterally intact EOM present, Yes Normal facial strength present, Yes Midline tongue present, Yes Symmetric palate elevation present, Yes Normal hearing present, Yes Ability to bilaterally rotate head present and Yes Ability to bilaterally elevate shoulders present Cognition (Neuro): normal cognition Psych Appearance: grossly normal Mental Status: mental status grossly normal Speech and movement: Normal speech and movement present Affect: normal affect Attitude: cooperative Assessment & Plan Assessment & Plan (1) Obstructive sleep apnea hypopnea, severe: Comment: AHI 50/hr, REM AHI 56/hr, )2 shiloh 73% Code(s): G47.33 - Obstructive sleep apnea (adult) (pediatric) Plan Continue APAP [id number] as patient experiences good clinical effects. Stressed compliance, nightly and more than 4 hours. Continue to practice good sleep hygiene. New CPAP supply order sent to [facility], and [facility] walk in information given to patient. Coding Level of Care Code Est Pt Level 3 (34016) Diagnoses Obstructive sleep apnea hypopnea, severe G47.33
[2023-11-13 11:08] VITALS: BP 115/70; PULSE 52; O2SAT 97; BMI 35.5
== END 2023-11-13 11:24 | disposition home or self-care (01) ==
PROVIDERS: Visit Provider Nurse Practitioner Family
DX: G47.33 Obstructive sleep apnea (adult) (pediatric) (principal)
CPT/HCPCS: 99213

== ENCOUNTER → 2023-11-13 10:39 | Outpatient (BNVA) | payer OTHER, SELFPAY | PROVIDERS: Visit Provider Nurse Practitioner Family | DX: G47.33 Obstructive sleep apnea (adult) (pediatric) (principal); Z99.89 Dependence on other enabling machines and devices | CPT/HCPCS: 99212 ==

== ENCOUNTER 2023-11-18 08:33 | Outpatient (REF) | payer OTHER, SELFPAY ==
[2023-11-18 11:40] LABS: Estimated Average Glucose 134 mg/dL; Hemoglobin A1c % 6.3 % (<6.0)
[2023-11-18 12:01] LABS: Alanine Aminotransferase 22 U/L (0-40); Albumin Level 3.5 g/dL (3.5-5.0); Alkaline Phosphatase 83 U/L (39-117); Anion Gap 10 (12-20); Aspartate Amino Transferase 20 U/L (5-37); Bilirubin Total 0.6 mg/dL (0.0-1.0); Blood Urea Nitrogen 15 mg/dL (9-16); Calcium 9.1 mg/dL (8.4-10.2); Carbon Dioxide 29 mmol/L (22-29); Chloride 106 mmol/L (96-108); Cholesterol 136 mg/dL (<200); Estimated Glomerular Filt Rate > 60; Glucose Random 98 mg/dL (60-115); HDL Cholesterol 42 mg/dL (>40); LDL Cholesterol Calculated 75 mg/dL (<100); Potassium 4.4 mmol/L (3.3-5.1); Sodium 141 mmol/L (135-145); Total Protein 7.5 g/dL (6.5-8.0); Triglycerides 96 mg/dL (<150)
[2023-11-18 12:28] LABS: TSH reflex Free T4 1.27 uIU/mL (0.32-4.0)
[2023-11-18 12:40] LABS: Folate 10.6 ng/mL (> or = 4.0); Vitamin B12 417 pg/mL (200-900)
[2023-11-18 12:47] LABS: Reflex LDLD? No
== END 2023-11-18 08:34 | disposition home or self-care (01) ==
LOC: HO.HHCL 08:33
PROVIDERS: Visit Provider Family Medicine
DX: I10 Essential (primary) hypertension (principal); E11.9 Type 2 diabetes mellitus without complications; E78.5 Hyperlipidemia, unspecified
CPT/HCPCS: 36415; 80053; 80061; 82043; 82570; 82607; 82746; 83036; 84443

== ENCOUNTER → 2023-11-26 08:46 | Outpatient (REF) | payer OTHER, SELFPAY ==
--- NOTE | 2023-11-26 08:48 | CA_ITS ---
Transthoracic Echocardiogram Patient (Last, First, Middle): Bharathi Walsh, Gender: Male Date of : 1945 Age: 78 Procedure Date: 11/26/2023 Procedure Type: Transthoracic Echocardiogram Location: OP Height: 172.72 cm Weight: 101.61 kg BSA: 2.14 m2 Heart Rate: 57 bpm BP: 110 / 60 mmHg Exchange Underwriting Consultant: IZABELLA Referring MD: Tc Castillo MD Symptoms: R06.09 - Other forms of dyspnea Study Quality: Fair w/Contrast ECG Rhythm: Sinus Conclusions: - Normal left ventricular size and systolic function. There is moderately increased left ventricular wall thickness. The visually estimated ejection fraction is between 60-65%. - Normal right ventricular cavity size and systolic function. - The left atrium is likely dilated. - There is mild dilatation of the ascending aorta measuring 4.00 cm. Findings Procedure Information Contrast agent, definity, is being given per protocol without apparent complications. Left Ventricle Normal left ventricular size and systolic function. There is moderately increased left ventricular wall thickness. The visually estimated ejection fraction is between 60-65%. There is no evidence of regional wall motion abnormalities. Diastolic function is normal for age. Right Ventricle Normal right ventricular cavity size and systolic function. Atria The left atrium is likely dilated. Aortic Valve Normal aortic valve structure and function. There is no aortic valve stenosis. There is no aortic valve regurgitation. Pulmonic Valve The pulmonic valve is likely normal. Tricuspid Valve Normal tricuspid valve structure. There is no tricuspid valve regurgitation. Tricuspid regurgitation envelope is inadequate for calculation of right ventricular systolic pressure. Great Vessels There is mild dilatation of the ascending aorta measuring 4.00 cm. Venous The inferior vena cava is normal in size and collapses greater than 50% with inspiration. Pericardium/Pleural There is no evidence of pericardial effusion. Prior Study Comparison No prior study available for comparison. Measurements 2D Linear Measurements IVSd: 1.34 0.6-0.9/0.6-1.0 cm LVIDd: 4.40 3.9-5.3/4.2-5.9 cm LVIDd Index: 2.06 2.4-3.2/2.2-3.1 cm/m2 LVIDs: 2.97 2.0-3.6 cm LVPWd: 1.43 0.7-1.1 cm LA Diam: 3.70 2.7-3.8/3.0-4.0 cm LAIDs Index: 1.73 1.5-2.3 cm/m2 LV Mass: 294.75 67-162/88-224 g LV Mass Index: 137.74 43-95/49-115 g/m2 LVOT Diam: 2.20 3.0+(-)1.3 cm 2D Systolic Function EF 4C: 78.00 >55% EF 2C: 70.30 >55% EF BiP: 74.20 >55% Mitral Valve MV Pk E: 0.48 MV PK A: 0.75 MV Decel Time: 366.00 E/A: 0.60 E'Lateral: 5.77 E'Medial: 5.55 E/E' Med: 8.60 E/E' Lat: 8.20 PHT: 107.00 MVA PHT: 2.06 Decel [place]: 1.30 Aortic Valve AoV Pk Melvin: 1.65 AoV Mn Melvin: 1.06 AoV VTI: 0.32 AoV Pk Grad: 11.00 Aov Mn Grad: 5.00 BLAKE Cont.VTI: 3.09 LVOT LVOT Pk Melvin: 1.23 LVOT Mn Melvin: 0.81 LVOT VTI: 0.26 LVOT Pk Grad: 6.00 LVOT Mn Grad: 3.00 LVOT Diam: 2.20 LVOT Area: 3.80 Diastolic Function MV Pk E: 0.48 MV Pk A: 0.75 E/A: 0.60 E'Medial: 5.55 E/E' Med: 8.60 E' Laterial: 5.77 E/E' Lat: 8.20 Right Ventricle TAPSE (mm): 25.90 TVS' Melvin: 12.40 Tricuspid Valve RA Press: 8.00 Great Vessels Aorta Sinus of Valsalva: 3.80 2.0-3.5 cm Ao Asc: 4.00 2.1-3.4 cm Pulmonary Valve PV Pk Melvin: 1.21 Peak PV Grad: 6.00 Updated in Other Vendor System with Status of Final Aram Comer MD electronically signed on 11/28/2023 2:22:38 PM with status of Final
== END ==
LOC: HO.CARD 08:46
PROVIDERS: PCP Family Medicine; Visit Provider Internal Medicine Pulmonary Disease
DX: R06.09 Other forms of dyspnea (principal)
CPT/HCPCS: 93306; Q9957

== ENCOUNTER → 2023-11-26 08:48 | Outpatient (BNV) | payer OTHER, SELFPAY | PROVIDERS: PCP Family Medicine; Visit Provider Internal Medicine Cardiovascular Disease | DX: R06.09 Other forms of dyspnea (principal) | CPT/HCPCS: 93306 ==

== ENCOUNTER 2023-12-01 15:15 | Outpatient (AMB) | payer OTHER, SELFPAY ==
[2023-12-01 15:17] VITALS: BP 112/64; PULSE 60; O2SAT 97; BMI 34.5
--- NOTE | 2023-12-01 15:17 | MHC.OFFVIS ---
Intake Vital Signs 12/01/23 15:17 Height 5 ft 8 in Weight 227 lb BMI 34.5 BP 112/64 Blood Pressure Location Rt brachial Position Sitting Pulse 60 Pulse Source Pulse Oximeter Pulse Oximetry (%) 97 Oxygen Delivery Method Room Air Intake Visit Reasons: N Issue-Tremor both sides hands-Conf w/address Intake Note: Patient presents for follow up tremors. everything is stable for now Allergies Penicillins Allergy (Intermediate, Verified 12/01/23 15:19) RASH Carbapenems Allergy (Unknown, Verified 12/01/23 15:19) Unknown Cephalosporins Allergy (Unknown, Verified 12/01/23 15:19) Unknown enviormental Allergy (Severe, Uncoded 12/01/23 15:19) coughing and sneezing Medication List - Last Reconciled 12/01/23 by CELESTINE Kruse albuterol sulfate 90 mcg/actuation 2 puffs inhalation Q4-6H PRN atorvastatin 40 mg PO BEDTIME blood sugar diagnostic (Say-Heyuch Ultra Test strips) As directed carvedilol 25 mg PO cholecalciferol (vitamin D3) 25 mcg PO DAILY cholecalciferol (vitamin D3) 25 mcg PO QAM diclofenac sodium 1% (Voltaren) 2 grams topical QID doxazosin 8 mg PO BEDTIME finasteride 5 mg PO QAM hydralazine 100 mg PO TID lancets As directed latanoprost 0.005% 1 drp ophthalmic (eye) QPM lisinopril 40 mg PO QPM loratadine (Allergy Relief (loratadine)) 10 mg PO DAILY magnesium oxide 400 mg PO BEDTIME 30 days metformin ER 500 mg PO QPM mupirocin 2% topical TID sertraline 25 mg PO QAM torsemide 20 mg PO QAM 30 days umeclidinium-vilanterol 62.5-25 mcg/actuation (Anoro Ellipta) 1 inh inhalation DAILY 30 days HPI HPI Comments History of Present Illness Details 78-yr-old male presents for f/u visit. Pt is accompanied by his dtr. Pt reports the following interval medical history changes: He has stopped smoking, as he has had ER evals for asthma exacerbations. Since his blood pressure has been more variable, tending to be running lower. Daughter states his systolic BP has been in the 90s at times. Today BP is 112/64 with heart rate 60. Patient does not endorse transient orthostatic lightheadedness. He drinks fluids, not excessively. He does drink coffee in the morning She does not use salt excessively but also does not avoid it. Patient has cardiology follow-up at the end of this month. He is still Ind w/ ADLs. Tremor is stable. Sometimes when he holds something or is trying to eat. He can be stiff. He notes left lower extremity leg cramps at night. No falls. Daughter has given him a cane to use as needed. Patient states his memory is stable. Pt continues to be able to pay some (but not all bills), play his numbers. He is able to cook w/o diffiuclty. He enjoys playing games w/ friends/family. Tries to take walks- as able. He is sleeping well with his CPAP machine. PFSH Medical History Spondylosis of lumbar region without myelopathy or radiculopathy Low back pain HTN (hypertension) Arthritis History of back pain History of fatty infiltration of liver Seasonal allergies Elevated cholesterol Asthma Anxiety Depression Diabetes mellitus History of COVID-19 Allergic rhinitis SHANON (obstructive sleep apnea) Obesity Smoker Surgical History Hx of ventral hernia repair Hx of colonoscopy History of left cataract extraction History of cystoscopy Hx of umbilical hernia repair Family History Mother No problems noted. Father No problems noted. Brother CAD (coronary artery disease) Sister Alzheimer disease Social History Are you a primary healthcare representative to a significant other at home: No Do you presently have visiting nurse or other home services: Yes Alcohol intake: never Patient Tobacco Use Status: Former Tobacco user Cigarette Packs Per Day: 0.5 Cigarettes Per Day: 10.0 Years Smoked: 60 +/- , quit- Oct 12 2023 Review of Systems Const All systems reviewed & are unremarkable except as noted in HPI and below Physical Exam Vital Signs: Last Vital Signs Pulse 60 12/01/23 15:17 BP 112/64 12/01/23 15:17 Pulse Ox 97 12/01/23 15:17 Oxygen Delivery Method Room Air 12/01/23 15:17 BMI result Body Mass Index 34.5 Const General: cooperative and no acute distress Resp Effort & Inspection: normal respiratory effort and able to speak in complete sentences Neuro Other: General: A&O x's 3 Expression: Ok, mild right lower facial droop, but good smile. Voice: ok Tremor: BUE mild postural tremor, R > L. Tone: UE mild rigidity Dyskinesia: None FFM: Ok Foot taps: Very subtle decrease in RLE Gait: Mild decreased right arm swing, shorter steps, steady gait. Psych: Pleasant affect Assessment & Plan Assessment & Plan (1) Tremor: Code(s): R25.1 - Tremor, unspecified (2) Memory difficulties: Code(s): R41.3 - Other amnesia (3) Periodic limb movement disorder (PLMD): Comment: PLMS 29/hr w/ PLMS aurosal index of 3.4/hr Code(s): G47.61 - Periodic limb movement disorder (4) Leg cramps: Code(s): R25.2 - Cramp and spasm Plan Patient advised to monitor orthostatic lightheadedness. Ensure that he is taking in enough fluids per day. Follow-up with cardiology as scheduled. ? Monitor cognition. Continue optimizing CV and metabolic risk factors. Continue cognitive and social stimulating activities. Increase physical activity as able. Continue APAP, as patient is having good clinical effect from use Future considerations- neuroprotective agent. ? Monitor tremor. Trialed magnesium oxide 400 mg q.h.s. for nocturnal leg cramps. No indications to trial tremor tx at this time. ? f/u in 6 months or sooner prn. Medications: New magnesium oxide may hold for loose stools 400 mg PO BEDTIME 30 days 30 tabs 6RF Coding Level of Care Code Est Pt Level 3 (07114) Diagnoses Tremor R25.1 Memory difficulties R41.3 Periodic limb movement disorder (PLMD) G47.61 Leg cramps R25.2
== END 2023-12-01 16:11 | disposition home or self-care (01) ==
PROVIDERS: PCP Family Medicine; Visit Provider Nurse Practitioner Family
DX: R25.1 Tremor, unspecified (principal); R41.3 Other amnesia; G47.61 Periodic limb movement disorder; R25.2 Cramp and spasm
CPT/HCPCS: 99213

== ENCOUNTER → 2023-12-01 15:15 | Outpatient (BNVA) | payer OTHER, SELFPAY | PROVIDERS: PCP Family Medicine; Visit Provider Nurse Practitioner Family | DX: R25.1 Tremor, unspecified (principal); R41.3 Other amnesia; R25.2 Cramp and spasm; G47.61 Periodic limb movement disorder | CPT/HCPCS: 99212 ==

== ENCOUNTER 2023-12-08 12:54 | Outpatient (AMB) | payer OTHER, SELFPAY ==
[2023-12-08 13:00] VITALS: BP 112/62; PULSE 56; O2SAT 94; BMI 37.0
--- NOTE | 2023-12-08 13:00 | MHC.OFFVIS ---
Vital Signs 12/08/23 13:00 Height 5 ft 6 in Weight 229 lb BMI 37.0 BP 112/62 Blood Pressure Location Lt brachial Position Sitting Pulse 56 Pulse Source Doppler Pulse Oximetry (%) 94 Oxygen Delivery Method Room Air Intake Visit Reasons: copd Automatic Pad Making Machine Operator Required: Yes Automatic Pad Making Machine Operator Name: Debbi VickersLatashaMigel Allergies Penicillins Allergy (Intermediate, Verified 12/01/23 15:19) RASH Carbapenems Allergy (Unknown, Verified 12/01/23 15:19) Unknown Cephalosporins Allergy (Unknown, Verified 12/01/23 15:19) Unknown enviormental Allergy (Severe, Uncoded 12/01/23 15:19) coughing and sneezing HPI HPI copd: Details: 78-year-old gentleman, recent 30+ pack-year smoker, quit September of 2023 followed for mild COPD. At the last office visit patient was switched to Anoro with improved symptomatic control. He also had his pulmonary function test that demonstrated underlying mild COPD. His 2D echo is essentially normal. His lower extremity edema has improved on torsemide and off amlodipine. PFSH Medical History Spondylosis of lumbar region without myelopathy or radiculopathy Low back pain HTN (hypertension) Arthritis History of back pain History of fatty infiltration of liver Seasonal allergies Elevated cholesterol Asthma Anxiety Depression Diabetes mellitus History of COVID-19 Allergic rhinitis SHANON (obstructive sleep apnea) Obesity Smoker Surgical History Hx of ventral hernia repair Hx of colonoscopy History of left cataract extraction History of cystoscopy Hx of umbilical hernia repair Family History Mother No problems noted. Father No problems noted. Brother CAD (coronary artery disease) Sister Alzheimer disease Social History Are you a primary primary care pediatrician to a significant other at home: No Do you presently have visiting nurse or other home services: Yes Alcohol intake: never Patient Tobacco Use Status: Former Tobacco user Cigarette Packs Per Day: 0.5 Cigarettes Per Day: 10.0 Years Smoked: 60 +/- , quit- Oct 12 2023 Review of Systems Const Denies daytime sleepiness, Denies excessive sweating, Denies fatigue, Denies fever(s), Denies lethargy, Denies malaise, Denies night sweats, Denies snoring and Denies weight loss Eyes Denies blurry vision and Denies itchy eyes ENT Denies nasal congestion, Denies post nasal drip, Denies sinus pain, Denies sinus pressure and Denies other ( Thrush) Card Denies chest pain, Denies pedal edema, Denies dyspnea, Denies orthopnea and Denies paroxysmal nocturnal dyspnea Resp Denies cough, Denies hemoptysis, Denies excessive phlegm production, Denies dyspnea, Denies snoring and Denies wheezing GI Denies abdominal pain and Denies heartburn Musc Denies myalgias, Denies arthralgias and Denies joint swelling Skin/Breast Denies rash Neuro Denies memory loss and Denies seizure-like activity Psych Denies abnormal sleep pattern, Denies anxiety and Denies memory loss Endo Denies excessive sweating, Denies fatigue and Denies heat intolerance Wilber/Lymph Denies easy bruising Aller/Immun Denies itchy eyes, Denies seasonal rhinorrhea and Denies wheezing Physical Exam Vital Signs: Last Vital Signs Pulse 56 12/08/23 13:00 BP 112/62 12/08/23 13:00 Pulse Ox 94 12/08/23 13:00 Oxygen Delivery Method Room Air 12/08/23 13:00 BMI result Body Mass Index 37.0 Const General: no acute distress and alert Nutritional Appearance: obese Orientation/consciousness: Other orientation findings ( oriented) HEENT Head: Yes atraumatic Eyes General: appearance normal, both eyes and all related structures Sclerae: sclerae normal EOM: EOMs intact bilaterally Neck Neck: Yes supple Lymphatic: no lymphadenopathy noted Resp Effort & Inspection: normal respiratory effort and no use of accessory muscles Auscultation: clear to auscultation bilaterally Cardio Rate: regular rate Rhythm: regular rhythm Heart sounds: no gallops, no murmurs and no rubs Skin General skin exam: other ( warm) Extrem General: No clubbing, No cyanosis and No edema Assessment & Plan Assessment & Plan (1) COPD (chronic obstructive pulmonary disease): Code(s): J44.9 - Chronic obstructive pulmonary disease, unspecified Category: Medical Plan: Improved control on Anoro and albuterol MDI. Continue current regimen. Results of Pulmonary function test reviewed, underlying mild COPD. (2) Personal history of nicotine dependence: Code(s): Z87.891 - Personal history of nicotine dependence Category: Medical Plan: Lung cancer screening CT chest is pending. (3) DAIGLE (dyspnea on exertion): Code(s): R06.09 - Other forms of dyspnea Category: Medical Plan: Improved on torsemide and off amlodipine. Continue current regimen. Coding Level of Care Code Est Pt Level 4 (98095) Diagnoses COPD (chronic obstructive pulmonary disease) J44.9 Personal history of nicotine dependence Z87.891 DAIGLE (dyspnea on exertion) R06.09
== END 2023-12-08 13:20 | disposition home or self-care (01) ==
PROVIDERS: PCP Family Medicine; Visit Provider Internal Medicine Pulmonary Disease
DX: J44.9 Chronic obstructive pulmonary disease, unspecified (principal); Z87.891 Personal history of nicotine dependence; R06.09 Other forms of dyspnea
CPT/HCPCS: 99214

== ENCOUNTER → 2023-12-08 12:54 | Outpatient (BNVA) | payer OTHER, SELFPAY | PROVIDERS: PCP Family Medicine; Visit Provider Internal Medicine Pulmonary Disease | DX: J44.9 Chronic obstructive pulmonary disease, unspecified (principal); R06.09 Other forms of dyspnea; F17.210 Nicotine dependence, cigarettes, uncomplicated | CPT/HCPCS: 99212 ==

== ENCOUNTER 2023-12-22 09:11 | Outpatient (REF) | payer OTHER, SELFPAY ==
--- NOTE | ~2023-12-22 | CT_ITS ---
EXAMINATION: CT LUNG SCREENING CLINICAL INFORMATION: Personal history of nicotine dependence. The patient has a 50 pack-year history of smoking, having quit 4 months ago. COMPARISON: X-ray chest 10/24/2023. CT chest 11/25/2022. TECHNIQUE: Multidetector volumetric CT imaging of the chest is performed on a Siemens SOMATOM Definition scanner without contrast using low dose technique. Additional 2D coronal and sagittal reformatted images and axial 3D maximum intensity projection (MIP) images are generated on the CT workstation. This CT examination was performed using dose optimization techniques as appropriate, variously including the following: *Automated exposure control *Adjustment of mA and/or kV according to patient size (this includes techniques or standardized protocols for targeted exams where dose is matched to indication/reason for exam; i.e. extremities or head) *Use of iterative reconstruction technique TOTAL EXAM DLP: 66 mGy-cm. CTDIvol: 1.91 mGy. FINDINGS: PULMONARY NODULES: Some small punctate pulmonary nodules are seen, all unchanged, with the largest nodule measuring 4 mm in a subpleural location in the left upper lobe (5:208 compare prior 5:190). No new, increasing sized or suspicious pulmonary nodule is seen. LUNGS: Lungs bilaterally symmetrically expanded. Mild emphysematous changes are present. Moderate bronchial thickening is seen. No effusion or pneumothorax. Central airways patent. MEDIASTINUM: No mediastinal, hilar or axillary adenopathy or free fluid collection. CORONARY ARTERY CALCIFICATION: Moderate. THYROID GLAND: Unremarkable to the extent seen. CARDIOVASCULAR STRUCTURES: Aortic and heart size normal. No pericardial effusion. CHEST WALL/AXILLA: Moderate gynecomastia. UPPER ABDOMEN: Included portions of the solid organs in the upper abdomen unremarkable on noncontrast imaging. OSSEOUS STRUCTURES: No suspicious focal findings. CT/CT lung screening IMPRESSION: No findings suggestive of malignancy. Benign unchanged micronodules. ASSESSMENT: 1. Lung-RADS Category 2: Benign appearance or behavior of nodules. N/A 2. Lung-RADS Category S: Negative. There are no clinically significant or potentially clinically significant findings not related to the lungs requiring urgent additional evaluation. RECOMMENDATION: Continued routine annual low-dose CT lung screening in 1 year is recommended. An order for CT CHEST LOW DOSE CANCER SCREENING ([id number]) can be placed.
== END 2023-12-22 09:12 | disposition home or self-care (01) ==
LOC: HO.CT 09:11
PROVIDERS: PCP Family Medicine; Visit Provider Internal Medicine Pulmonary Disease
DX: Z12.2 Encounter for screening for malignant neoplasm of respiratory organs (principal); Z87.891 Personal history of nicotine dependence
CPT/HCPCS: 71271

== ENCOUNTER 2024-01-05 10:46 | Outpatient (REF) | payer OTHER, SELFPAY ==
[2024-01-05 12:20] LABS: Prostate Specific Antigen 0.87 ng/mL (<0.05-4.0)
== END 2024-01-05 10:47 | disposition home or self-care (01) ==
LOC: HO.HHCL 10:46
PROVIDERS: Visit Provider Family Medicine
DX: R35.1 Nocturia (principal); Z12.5 Encounter for screening for malignant neoplasm of prostate
CPT/HCPCS: 36415; 84153

== ENCOUNTER 2024-01-25 10:41 | Outpatient (AMB) | payer OTHER, SELFPAY ==
--- NOTE | 2024-01-25 10:44 | A.OFFVIS_ITS ---
Vital Signs 01/25/24 10:50 Height 5 ft 6 in Weight 234 lb BMI 37.8 BP 136/78 Blood Pressure Location Lt brachial Position Sitting Respiration 14 Pulse 73 Pulse Source Pulse Oximeter Pulse Oximetry (%) 97 Oxygen Delivery Method Room Air Intake Visit Reasons: MRI FOLLOW UP/RESULTS Intake Note: Patient comes in to discuss MRI results. Reports pain /. Gas Station Attendant Required: Yes Gas Station Attendant Name: Vasquez Conner #[id number] Accompanied by: Daughter Allergies Penicillins Allergy (Intermediate, Verified 01/25/24 11:17) RASH Carbapenems Allergy (Unknown, Verified 01/25/24 11:17) Unknown Cephalosporins Allergy (Unknown, Verified 01/25/24 11:17) Unknown enviormental Allergy (Severe, Uncoded 12/01/23 15:19) coughing and sneezing HPI Comments Details: Mr. Pietr Angel is in my office today again to discuss possibility of treatment with interventional pain management. He reports that his legs are getting weaker, he reports shock-like pain sensation in left more than right lower extremity. He was sent for MRI of the lumbar spine and results of the MRI dictated as below. I would like to send this patient for consultation with neurosurgeon because of the severe L5-S1 bilateral foraminal stenosis. However if there are contraindications to treat the condition of this patient neurosurgically he is welcome to come back and I will offer him neuromodulation. PFSH Medical History Spondylosis of lumbar region without myelopathy or radiculopathy Low back pain HTN (hypertension) Arthritis History of back pain History of fatty infiltration of liver Seasonal allergies Elevated cholesterol Asthma Anxiety Depression Diabetes mellitus History of COVID-19 Allergic rhinitis SHANON (obstructive sleep apnea) Obesity Smoker Surgical History Hx of ventral hernia repair Hx of colonoscopy History of left cataract extraction History of cystoscopy Hx of umbilical hernia repair Family History Mother No problems noted. Father No problems noted. Brother CAD (coronary artery disease) Sister Alzheimer disease Social History Are you a primary neonatal intensive care unit nurse to a significant other at home: No Do you presently have visiting nurse or other home services: Yes Alcohol intake: never Patient Tobacco Use Status: Former Tobacco user Cigarette Packs Per Day: 0.5 Cigarettes Per Day: 10.0 Years Smoked: 60 +/- , quit- Oct 12 2023 Review of Systems Const All systems reviewed & are unremarkable except as noted in HPI and below ENT Reports Normal hearing present Neuro Reports Normal hearing present Physical Exam Vital Signs: Last Vital Signs Pulse 73 01/25/24 10:50 Resp 14 01/25/24 10:50 BP 136/78 01/25/24 10:50 Pulse Ox 97 01/25/24 10:50 Oxygen Delivery Method Room Air 01/25/24 10:50 BMI result Body Mass Index 37.8 Const General: cooperative and no acute distress Orientation/consciousness: patient oriented x3 HEENT Other: left parietal head lump Neck Neck: Yes supple Resp Effort & Inspection: normal respiratory effort and able to speak in complete sentences Neuro General: patient oriented x3 and moves all extremities Cranial nerves: Yes Normal hearing present Cognition (Neuro): normal cognition Psych Appearance: grossly normal Mental Status: mental status grossly normal Results Reviewed Results Reviewed: 10/29/23 MR lumbar spine wo con FINDINGS: Motion degraded examination. STIR sequence is particularly motion degraded and near nondiagnostic. Within this limitation, no significant marrow edema is identified. Rightward curvature of the lumbar spine. No suspicious marrow signal or focal osseous lesion. T12 and L2 vertebral body hemangiomas. Mild right-sided type II endplate marrow signal changes at L5-S1 The vertebral body heights are maintained. Multilevel disc dessication and height loss. The conus medullaris terminates at the level of L1. The distal spinal cord is normal in appearance. The cauda equina nerve roots appear normal. No significant abnormalities of the paraspinal musculature. Limited evaluation of the intra-abdominal structures without significant abnormalities. Right renal cyst for which no further imaging follow-up is required. The abdominal aorta is of normal contour and caliber. SPINAL LEVELS: T12-L1: Shallow disc bulge. No significant spinal canal or neural foraminal narrowing L1-L2: No significant spinal canal or neuroforaminal narrowing. Shallow disc bulge and mild facet arthropathy. L2-L3: No significant spinal canal or neuroforaminal narrowing. L3-L4: Left greater than right facet arthropathy. Left eccentric disc osteophyte complex. Ligamentum flavum thickening. No significant central spinal canal stenosis. Stable mild right and moderate to severe left neural foraminal narrowing with impingement of the exiting left L3 nerve root. L4-L5: Facet arthropathy. Shallow disc bulge. No significant central spinal canal stenosis. Stable mild bilateral neural foraminal narrowing, left greater than right. L5-S1: Right greater than left facet arthropathy with right joint effusion. Right eccentric disc osteophyte complex. No significant central spinal canal stenosis. Stable severe right neural foraminal narrowing with impingement of the exiting right L5 nerve root and right subarticular zone narrowing with possible impingement of the traversing right S1 nerve root IMPRESSION: Rightward curvature of the lumbar spine and multilevel spondylosis as described above appears similar to MRI from 09/29/2022 without significant central spinal canal narrowing. Neural foraminal stenosis is worst and severe on the right at L5-S1 with impingement of the exiting right L5 nerve root and moderate to severe on the left at L3-L4 with impingement of the exiting left L3 nerve root. Assessment & Plan Assessment & Plan (1) Lumbar radiculopathy: Code(s): M54.16 - Radiculopathy, lumbar region Category: Medical (2) Disc degeneration, lumbar: Code(s): M51.36 - Other intervertebral disc degeneration, lumbar region Category: Medical Plan I will schedule this patient for neurosurgical examination with Dr. Olivo. Minimally invasive L5-S1 intervention could possibly do well for this patient. However if for any reason this patient can not go for any neurosurgical interventions I recommended him to come back to me and I will try to treat his pain with neuromodulation including spinal cord stimulation potential DRG stimulation. Orders: Referrals Neurosurgery Referral M51.36 - Other intervertebral disc degeneration, lumbar region, M54.16 - Radiculopathy, lumbar region Patient Instructions: I here by testify that I spent 30 minutes in conversation with this patient as well as planning this care and organizing this note. Ayla design manager Je [phone] helped us today to interpret this conversation in Uzbek. Coding Level of Care Code Est Pt Level 4 (61276) Diagnoses Lumbar radiculopathy M54.16 Disc degeneration, lumbar M51.36
[2024-01-25 10:50] VITALS: BP 136/78; PULSE 73; RESP 14; O2SAT 97; BMI 37.8
== END 2024-01-25 11:27 | disposition home or self-care (01) ==
PROVIDERS: PCP Family Medicine; Visit Provider Anesthesiology
DX: M54.16 Radiculopathy, lumbar region (principal); M51.36 Other intervertebral disc degeneration, lumbar region
CPT/HCPCS: 99214

== ENCOUNTER → 2024-01-25 10:41 | Outpatient (BNVA) | payer OTHER, SELFPAY | PROVIDERS: PCP Family Medicine; Visit Provider Anesthesiology | DX: M54.16 Radiculopathy, lumbar region (principal); M51.36 Other intervertebral disc degeneration, lumbar region | CPT/HCPCS: 99212 ==

== ENCOUNTER 2024-01-29 10:41 | Outpatient (AMB) | payer OTHER, SELFPAY ==
--- NOTE | 2024-01-29 11:00 | HO.SPINEOV ---
Intake Visit Reasons: Lumbar radiculopathy Intake Note: Mr. Piter Angel is here today c/o low back pain Byproducts Operator Required: Yes Byproducts Operator Name: Tablet Allergies Penicillins Allergy (Intermediate, Verified 01/29/24 11:05) RASH Carbapenems Allergy (Unknown, Verified 01/25/24 11:17) Unknown Cephalosporins Allergy (Unknown, Verified 01/25/24 11:17) Unknown enviormental Allergy (Severe, Uncoded 12/01/23 15:19) coughing and sneezing Assessment & Plan Assessment & Plan (1) Periodic limb movement disorder (PLMD): Comment: PLMS 29/hr w/ PLMS aurosal index of 3.4/hr Code(s): G47.61 - Periodic limb movement disorder Category: Medical (2) Lumbar degenerative disc disease: Code(s): M51.36 - Other intervertebral disc degeneration, lumbar region Category: Medical Plan Dear Dr Machuca, Thank you for referring Mr Piter Angel to our office today. This is a very nice 78-year-old diabetic gentleman was at age of 10 years of pain along his left outer hip. He also has a component of back pain. It is very low down in the lower lumbar spine. He does not report any radicular pain down the legs. He has a little bit of a similar pain on the right but primarily it has in the left. He also has what he describes as spontaneous muscular contractions all throughout his body at night but primarily worse in his left leg. His leg will start moving spontaneously and jerking around and he has no ability to control it unless he puts his hand around his thigh and squeezes very hard and it seems to make it go away. He has been through some basic conservative treatment including physical therapy. He has not had any cortisone injections. He does take Tylenol at numerous times throughout the day to help the pain. He is coming in today to see us with an MRI showing degenerative changes on the right L5 foramen with compression of the right L5 nerve and the left L3 foramen. He does occasionally get tingling and numbness in his hands but for the most part he does not have any of that in the lower extremities. PMH: He has high blood pressure, it sounds like from the intake form he may have some kind of cardiovascular disease or problems with his heart. His daughter who is here with him today describes it as some kind of inflammation of his heart. He is a diabetic but his last A1c was around 6 He has had cataract surgery. He smoked up until about 4 months ago. He has BPH. Two hernia surgeries. He has had bladder stones removed. Denies any problems with his kidneys, liver, does have a little bit of COPD but no major lung problems. He denies any history of cancer, blood clots, bleeding disorders or any major abdominal surgeries. Social hx: Quit smoking 4 months ago but does not use any alcohol or recreational drugs Medications: Atorvastatin, doxazosin, finasteride, lisinopril, metformin, sertraline, torsemide, vitamin-D Allergies: Penicillin Physical exam: He is awake alert oriented no acute distress, he has good strength of bilateral upper and lower extremities. When I attempted to elicit a left patellar reflex he had spontaneous myoclonic jerking of his left leg which resulted in a significant spasm where he had to stand up out of the chair start walking and grab his leg to make it stop. It was reproducible every time I tried to test his patella reflex. He did not have any Elisa sign or clonus. Reflexes are 2+ and symmetric throughout the upper and lower extremities. Imaging review: Lumbar MRI showing some [id number] degenerative disc throughout the lumbar spine. The right L5 foramen has some narrowing due to a far lateral disc osteophyte, and the left L3 foramen is listed as severely stenotic on the MRI report but I would grade it as mild to moderately narrowed. No significant central canal stenosis. There is no spondylolisthesis or malalignment seen. His overall disc quality is not terrible. Impression: 78-year-old male presents for evaluation of an 8-10 year history of pain around the outside of his left hip. He has no radicular pain down his leg. He has no tingling or numbness or weakness in the leg. He does have an unusual spasmodic jerking of his leg that can happen with manipulation of it. Please see my note above about his patellar reflex testing. He tells me that at nighttime this can happen all throughout his body and it becomes quite bothersome and uncomfortable. I am not sure if it is some kind of spasticity or something medication related but I would like to get a cervical MRI to rule out myelopathy just as a precaution. His reflexes are unreliable because of his diabetes so this will be more of a surveillance situation just to make sure were not missing something. These patients can present with a typical symptoms. With regard to the symptoms of the left outer hip pain and some back pain. I think his films leave us wanting to understand his situation a little bit more. The worse compression that I see is on the right in the L5 foramen but obviously his symptoms are on the left. There is some [id number] narrowing of the left L3 foramen but he does not have the classic symptoms of an L3 radiculopathy. Maybe it would be worthwhile to start with an left L3 transforaminal block to see if this is something we can localize as the source of his pain and then re-evaluate. Right now I am not sure if his symptoms are even coming from his back at all. I will call him with the results of the cervical MRI Thank you for allowing us to care for your patient. The total time spent with this visit with this patient was 45 minutes reviewing history, physical exam, lumbar imaging review, and implementation of treatment plan or further diagnostic testing Hernando Olivo MD,PhD [facility] Orders: Orders MR cervical spine wo con Today G47.61 - Periodic limb movement disorder Coding Level of Care Code New Pt Level 4 (70487) Diagnoses Periodic limb movement disorder (PLMD) G47.61 Lumbar degenerative disc disease M51.36
== END 2024-01-29 12:10 | disposition home or self-care (01) ==
PROVIDERS: PCP Family Medicine; Referring Provider Anesthesiology; Visit Provider Physician Assistant
DX: G47.61 Periodic limb movement disorder (principal); M51.36 Other intervertebral disc degeneration, lumbar region
CPT/HCPCS: 99204

== ENCOUNTER → 2024-01-29 10:41 | Outpatient (BNVA) | payer OTHER, SELFPAY | PROVIDERS: PCP Family Medicine; Visit Provider Physician Assistant | DX: G47.61 Periodic limb movement disorder (principal); M51.36 Other intervertebral disc degeneration, lumbar region | CPT/HCPCS: 99202 ==

== ENCOUNTER 2024-02-29 14:07 | Outpatient (AMB) | payer OTHER, SELFPAY ==
--- NOTE | 2024-02-29 14:20 | A.OFFVIS_ITS ---
Intake Visit Reasons: nocturia/ BPH Intake Note: Patient is present for BPH/Nocturia Urology Medication:doxazosin,finasteride Antibiotic Allergy:penicillin Blood Thinner:none PVR: 15 Cloth Doffer Required: Yes Cloth Doffer Language: Manager People Name: Qiana [id number] Information Interpreted: non-clinical & clinical Allergies Penicillins Allergy (Intermediate, Verified 02/29/24 14:21) RASH Carbapenems Allergy (Unknown, Verified 02/29/24 14:21) Unknown Cephalosporins Allergy (Unknown, Verified 02/29/24 14:21) Unknown enviormental Allergy (Severe, Uncoded 02/29/24 14:21) coughing and sneezing Medication List - Last Reconciled 02/29/24 by Kishore Ayala MD albuterol sulfate 90 mcg/actuation 2 puffs inhalation Q4-6H PRN atorvastatin 40 mg PO BEDTIME blood sugar diagnostic (MedversantTouch Ultra Test strips) As directed carvedilol 25 mg PO cholecalciferol (vitamin D3) 25 mcg PO DAILY cholecalciferol (vitamin D3) 25 mcg PO QAM diclofenac sodium 1% (Voltaren) 2 grams topical QID doxazosin 8 mg PO BEDTIME finasteride 5 mg PO QAM hydralazine 100 mg PO TID lancets As directed latanoprost 0.005% 1 drp ophthalmic (eye) QPM lisinopril 40 mg PO QPM loratadine (Allergy Relief (loratadine)) 10 mg PO DAILY magnesium oxide 400 mg PO BEDTIME 30 days metformin ER 500 mg PO QPM mupirocin 2% topical TID sertraline 25 mg PO QAM torsemide 20 mg PO QAM 30 days umeclidinium-vilanterol 62.5-25 mcg/actuation (Anoro Ellipta) 1 inh inhalation DAILY 30 days HPI Comments Details: Bharathi is a 78-year-old male, 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 He drinks 1-2 cups of coffee daily. AUA symptom score 13/35 He denies blood in the urine, he denies dysuria. Comorbidity diabetes. At this time we will hold off on any medication such as an anticholinergic. Urinalysis is negative, bladder scan PVR is 15 mL. He is on doxazosin and finasteride. PSA 01/05/2024 is 0.87. Will check renal ultrasound. PFSH Medical History Spondylosis of lumbar region without myelopathy or radiculopathy Low back pain HTN (hypertension) Arthritis History of back pain History of fatty infiltration of liver Seasonal allergies Elevated cholesterol Asthma Anxiety Depression Diabetes mellitus History of COVID-19 Allergic rhinitis SHANON (obstructive sleep apnea) Obesity Smoker Surgical History Hx of ventral hernia repair Hx of colonoscopy History of left cataract extraction History of cystoscopy Hx of umbilical hernia repair Family History Mother No problems noted. Father No problems noted. Brother CAD (coronary artery disease) Sister Alzheimer disease Social History Are you a primary ambulatory care coordinator to a significant other at home: No Do you presently have visiting nurse or other home services: Yes Alcohol intake: never Patient Tobacco Use Status: Former Tobacco user Cigarette Packs Per Day: 0.5 Cigarettes Per Day: 10.0 Years Smoked: 60 +/- , quit- Oct 12 2023 Physical Exam Const General: healthy appearing, no acute distress and well developed Nutritional Appearance: overweight Orientation/consciousness: patient oriented x3 HEENT Head: Yes normocephalic and Yes atraumatic Eyes Conjunctivae: conjunctivae normal Neck Neck: Yes normal visual inspection Chest Chest palpation & inspection: normal inspection of the chest Resp Effort & Inspection: normal respiratory effort Cardio Rate: regular rate GI Inspection: Yes normal to inspection Palpation (GI): Soft to palpation Neuro General: patient oriented x3 Psych Appearance: grossly normal Affect: normal affect Office Procedures Post Void Residual Post Residual Void Post Void Residual (PVR): 14 [id number] Void Residual by ultrasound Results AMB Urinalysis, Automated UA Leukoctes 0 Isaias/uL Last Edit by DEAN Dunaway on 02/29/24 14:34 UA Nitrite Negative Last Edit by DEAN Dunaway on 02/29/24 14:34 UA Urobilinogen 0.2 mg/dL Last Edit by DEAN Dunaway on 02/29/24 14:3 4 UA Protein 0 mg/dL Last Edit by DEAN Dunaway on 02/29/24 14:34 UA pH 6.0 Last Edit by DEAN Dunaway on 02/29/24 14:34 UA Blood 0 Jhon/uL Last Edit by DEAN Dunaway on 02/29/24 14:34 UA Specific [place] 1.015 Last Edit by DEAN Dunaway on 02/29/24 14: 34 UA Ketone Negative Last Edit by DEAN Dunaway on 02/29/24 14:34 UA Bilirubin 0 mg/dL Last Edit by DEAN Dunaway on 02/29/24 14:34 UA Glucose 0 mg/dL Last Edit by DEAN Dunaway on 02/29/24 14:34 Quality Reporting (2019) Benign Prostatic Hyperplasia ([facility] 771) AUA symptom score: 13 Quality of life due to urinary symptoms: If you were to spend the rest of your life with your urinary condition the way it is now, how would you feel about that?: Mixed: about equally satisfied and dissatisfied Results Reviewed Results Reviewed: Laboratory Last Values Urine pH (Auto) 6.0 02/29/24 14:33 Specific [place] (Auto) 1.015 02/29/24 14:33 Urine Protein (Auto) 0 mg/dL 02/29/24 14:33 Glucose (UA)(Auto) 0 mg/dL 02/29/24 14:33 Urine Ketones (Auto) Negative 02/29/24 14:33 Urine Blood (Auto) 0 Jhon/uL 02/29/24 14:33 Urine Nitrite (Auto) Negative 02/29/24 14:33 Urine Bilirubin (Auto) 0 mg/dL 02/29/24 14:33 Urine Urobilinogen (Auto) 0.2 mg/dL 02/29/24 14:33 Leukocyte Esterase (Auto) 0 Isaias/uL 02/29/24 14:33 PSA--01/05/24 0.87 ng/mL Nomal <0.05-4.0 Assessment & Plan Assessment & Plan (1) BPH loc w urin obs/LUTS: Code(s): N40.1 - Benign prostatic hyperplasia with lower urinary tract symptoms Category: Medical (2) Urinary frequency: Code(s): R35.0 - Frequency of micturition Category: Medical Plan Urinary symptoms of daytime urinary frequency, nocturia x2, the patient is on torsemide 20 mg daily which is likely contributing to the daytime frequency. He drinks 1-2 cups of coffee daily. AUA symptom score Urinalysis is negative, bladder scan PVR is 15 mL. He is on doxazosin and finasteride. PSA 01/05/2024 is 0.87. Will check renal ultrasound. Orders: Orders US retroperitoneal comp Today N40.1 - Benign prostatic hyperplasia with lower urinary tract symptoms AMB Post Void Residual by ultrasound Today N40.0 - Benign prostatic hyperplasia without lower urinary tract symptoms AMB Urinalysis Automated Today Z13.9 - Encounter for screening, unspecified Patient Instructions: The patient had an opportunity to ask questions regarding treatment plan. The patient expressed understanding and agreement with the above treatment plan. The patient is aware they should contact our office by phone for worsening of their current condition or the appearance of new symptoms. Compliance is encouraged with any medications and followup testing that is ordered. It is a privilege to be allowed the opportunity to participate in the urologic care of your patient. If you have any questions or concerns regarding treatment for the above conditions please do not hesitate to contact me. The office telephone contact is [phone]. This note is constructed in part using voice recognition software. While every effort has been made to ensure accuracy job placement specialist errors may have been included. Yours sincerely, Kishore Ayala MD Coding Level of Care Code New Pt Level 4 (47037) Diagnoses BPH loc w urin obs/LUTS N40.1 Urinary frequency R35.0 CPT Codes Post Residual Void - PVR CPT Code: 69246-Eipe Void Residual by ultrasound ([id number]) AUA Symptom Score AUA Incomplete emptying - It does not feel like I empty my bladder all the way.: 2 - Less than half the time Frequency - I have to go again less than two hours after I finish urinating.: 3 - About half the time Intermittency - I stop and start again several times when I urinate.: 3 - About half the time Urgency - It is hard to wait when I have to urinate.: 2 - Less than half the time Weak stream - I have a weak urinary stream.: 1 - Less than 1 time in 5 Straining - I have to push or strain to begin urination.: 0 - Not at all Nocturia - I get up to urinate after I go to bed until the time I get up in the morning.: 2 times AUA Symptom Score: 13 Quality of life due to urinary symptoms: If you were to spend the rest of your life with your urinary condition the way it is now, how would you feel about that?: Mixed: about equally satisfied and dissatisfied Source: Ruiz BERMUDEZ, Farzana LEONARD Jr, O'David MP, et al, and the Measurement Committee of the [place] [employer]. The [place] [employer] symptom index for benign prostatic hyperplasia. J Urol. 1992; 148: 1762-2543. Copyright 1992 [place]
== END 2024-02-29 15:21 | disposition home or self-care (01) ==
PROVIDERS: PCP Family Medicine; Visit Provider Urology
DX: N40.1 Benign prostatic hyperplasia with lower urinary tract symptoms (principal); R35.0 Frequency of micturition; Z13.9 Encounter for screening, unspecified
CPT/HCPCS: 99204

== ENCOUNTER → 2024-02-29 14:07 | Outpatient (BNVA) | payer OTHER, SELFPAY | PROVIDERS: PCP Family Medicine; Visit Provider Urology | DX: N40.1 Benign prostatic hyperplasia with lower urinary tract symptoms (principal); R35.0 Frequency of micturition | CPT/HCPCS: 51798; 81003; 99202 ==

== ENCOUNTER 2024-03-04 11:16 | Outpatient (REF) | payer OTHER, SELFPAY ==
--- NOTE | ~2024-03-04 | US_ITS ---
EXAMINATION: US RETROPERITONEAL COMPLETE (RENAL) CLINICAL INFORMATION: Benign prostatic hyperplasia with lower urinary tract symptoms. COMPARISON: Ultrasound renal 01/26/2020. CT abdomen and pelvis 08/29/2018. X-ray KUB 07/21/2011 and 06/11/2010. TECHNIQUE: Real-time imaging of the kidneys and bladder. FINDINGS: RIGHT KIDNEY: 10.3 x 6.8 x 5.0 cm (SAG x AP x TRV). The kidney is normal in size, contour, and echogenicity. Renal cortical thickness is normal. No calculi or focal parenchymal lesions. No hydronephrosis. LEFT KIDNEY: 11.4 x 6.0 x 5.0 cm (SAG x AP x TRV). The kidney is normal in size, contour, and echogenicity. Renal cortical thickness is normal. No renal calculi or hydronephrosis. At the lower pole, a 3.7 cm benign, simple exophytic cyst is seen, for which no imaging follow-up is recommended. BLADDER: Well distended. A 1.9 cm rightward shadowing bladder calculus is seen. Bilateral ureteral jets are demonstrated. Prevoid bladder volume is 307 mL. Postvoid bladder volume is 80 mL. ADDITIONAL FINDINGS: Prostate dimensions are 4.3 x 4.5 x 5.5 cm (volume 55.9 mL). US/US retroperitoneal comp IMPRESSION: 1. Unremarkable ultrasound appearance of the kidneys. 2. There is a borderline increased postvoid residual volume. 3. A 1.9 cm rightward bladder calculus is seen. 4. There is prostatomegaly.
== END 2024-03-04 11:17 | disposition home or self-care (01) ==
LOC: HO.US 11:16
PROVIDERS: Visit Provider Urology
DX: N40.1 Benign prostatic hyperplasia with lower urinary tract symptoms (principal)
CPT/HCPCS: 76770

== ENCOUNTER 2024-04-04 09:01 | Outpatient (REF) | payer OTHER, SELFPAY ==
--- NOTE | ~2024-04-04 | MR_ITS ---
MR CERVICAL SPINE WITHOUT CONTRAST CLINICAL INFORMATION: Periodic limb movement disorder. COMPARISON: Brain MRI April 14, 2023. TECHNIQUE: MRI of the cervical spine was obtained using routine sequences without contrast. FINDINGS: Intramedullary T2 signal changes are suspected throughout nearly the entire imaged cervical spinal cord and portions of the partially imaged thoracic spinal cord with associated cord volume loss suggesting that these findings are chronic. Consider postcontrast imaging of the cervical spine as well as noncontrast and postcontrast imaging of the brain and thoracic spine as clinically indicated. The vertebral body heights are maintained. Large multilevel endplate osteophytes. The craniocervical junction is unremarkable. There are Modic type I endplate signal changes at T3-T4. There is no additional bone marrow edema. There are no acute fractures. The cervical arterial flow voids are maintained. Retropharyngeal course of the common carotid arteries and proximal internal carotid arteries bilaterally. C2-C3: Uncovertebral joint spurring and advanced facet arthropathy results in moderate left-sided foraminal stenosis. No central canal in the right foraminal stenosis. C3-C4: Advanced uncovertebral joint hypertrophy and hypertrophic facet arthropathy result in moderate to severe bilateral foraminal stenosis. No central canal stenosis. C4-C5: Uncovertebral joint spurring and facet arthropathy result in moderate to severe right and mild left foraminal stenosis. No central canal stenosis. C5-C6: Uncovertebral joint spurring results in mild bilateral foraminal encroachment. No central canal stenosis. C6-C7: Small annular disc bulge. Uncovertebral joint spurring results in mild bilateral foraminal encroachment. C7-T1: Posterior disc contour is normal. No central canal stenosis and no foraminal stenosis. MR/MR cervical spine wo con IMPRESSION: * Intramedullary T2 signal changes are suspected throughout nearly the entire imaged cervical spinal cord and portions of the partially imaged thoracic spinal cord with associated cord volume loss suggesting that these findings are chronic. There is no extrinsic compression of the cervical spinal cord. Consider postcontrast imaging of the cervical spine as well as noncontrast and postcontrast imaging of the brain and thoracic spine as clinically indicated. * Multilevel cervical spondylosis. Spondylitic changes result in moderate left C2-C3, moderate to severe bilateral C3-C4, and moderate to severe right C4-C5 foraminal stenosis. There is no severe central canal stenosis within the cervical spine. Electronically signed by: Aleksandar Montero MD 04/24/2024 10:31 AM EDT RP
== END 2024-04-04 09:02 | disposition home or self-care (01) ==
LOC: HO.MRI 09:01
PROVIDERS: PCP Family Medicine; Visit Provider Physician Assistant
DX: G47.61 Periodic limb movement disorder (principal)
CPT/HCPCS: 72141

== ENCOUNTER 2024-04-07 12:24 | Outpatient (REF) | payer OTHER, SELFPAY ==
--- NOTE | ~2024-04-07 | XR_ITS ---
EXAMINATION: XR CHEST CLINICAL INFORMATION: Asthma COMPARISON: Frontal view 10/24/23 TECHNIQUE: 2 views of the chest were obtained. FINDINGS: Calcified tortuous aorta. Cardiac size top normal. No hilar mass or edema. No acute pneumonia, pleural fluid or pneumothorax. There are some minor opacities in the left lateral costophrenic sulcus region. There is some flattening of diaphragm. There are osteophytes throughout the visualized spine XR/XR chest 2V IMPRESSION: No acute cardiopulmonary disease. Electronically signed by: Thanh Samson MD 04/10/2024 09:30 PM EDT
== END 2024-04-07 12:25 | disposition home or self-care (01) ==
LOC: HO.HHCX 12:24
PROVIDERS: Visit Provider Family Medicine
DX: R06.00 Dyspnea, unspecified (principal)
CPT/HCPCS: 71046

== ENCOUNTER 2024-05-12 09:49 | Outpatient (AMB) | payer OTHER, SELFPAY ==
--- NOTE | 2024-05-12 09:53 | MHC.OFFVIS ---
Intake Visit Reasons: 2M/U/S Intake Note: Patient is present for a 2 month U/S follow up. Urology Medication:doxazosin,finasteride Antibiotic Allergy:penicillin Blood Thinner:none Microbiological Lab Technician Required: Yes Microbiological Lab Technician Language: Scratcher Services: Microbiological Lab Technician Present Microbiological Lab Technician Name: [id number] Manzanares [id number] Allergies Penicillins Allergy (Intermediate, Verified 05/12/24 09:55) RASH Carbapenems Allergy (Unknown, Verified 05/12/24 09:55) Unknown Cephalosporins Allergy (Unknown, Verified 05/12/24 09:55) Unknown enviormental Allergy (Severe, Uncoded 05/12/24 09:55) coughing and sneezing HPI Comments Details: 05/12/24--Bharathi is here for follow-up, 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 I have reviewed renal ultrasound there is a bladder stone visualized. The patient states that about 1 or 2 years ago he had a bladder stone that was crushed by another urologist. Discussed follow-up office cystoscopy for further evaluation. 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 He drinks 1-2 cups of coffee daily. AUA symptom score 13/35 He denies blood in the urine, he denies dysuria. Comorbidity diabetes. At this time we will hold off on any medication such as an anticholinergic. Urinalysis is negative, bladder scan PVR is 15 mL. He is on doxazosin and finasteride. PSA 01/05/2024 is 0.87. Will check renal ultrasound. PFSH Medical History Spondylosis of lumbar region without myelopathy or radiculopathy Low back pain HTN (hypertension) Arthritis History of back pain History of fatty infiltration of liver Seasonal allergies Elevated cholesterol Asthma Anxiety Depression Diabetes mellitus History of COVID-19 Allergic rhinitis SHANON (obstructive sleep apnea) Obesity Smoker Surgical History Hx of ventral hernia repair Hx of colonoscopy History of left cataract extraction History of cystoscopy Hx of umbilical hernia repair Family History Mother No problems noted. Father No problems noted. Brother CAD (coronary artery disease) Sister Alzheimer disease Social History Are you a primary child care associate teacher to a significant other at home: No Do you presently have visiting nurse or other home services: Yes Alcohol intake: never Patient Tobacco Use Status: Former Tobacco user Cigarette Packs Per Day: 0.5 Cigarettes Per Day: 10.0 Years Smoked: 60 +/- , quit- Oct 12 2023 Review of Systems Const All systems reviewed & are unremarkable except as noted in HPI and below Reports no additional complaints Eyes Reports no additional complaints ENT Reports no additional complaints Card Reports no additional complaints Resp Reports no additional complaints GI Reports no additional complaints Reports as per HPI Musc Reports no additional complaints Skin/Breast Reports system reviewed and no additional complaints, except as documented Neuro Reports no additional complaints Psych Reports no additional complaints Endo Reports no additional complaints Wilber/Lymph Reports no additional complaints Aller/Immun Reports no additional complaints Results Reviewed Results Reviewed: Date of Service: 03/04/24 US RETROPERITONEAL COMPLETE (RENAL) CLINICAL INFORMATION: Benign prostatic hyperplasia with lower urinary tract symptoms. COMPARISON: Ultrasound renal 01/26/2020. CT abdomen and pelvis 08/29/2018. X-ray KUB 07/21/2011 and 06/11/2010. TECHNIQUE: Real-time imaging of the kidneys and bladder. FINDINGS: RIGHT KIDNEY: 10.3 x 6.8 x 5.0 cm (SAG x AP x TRV). The kidney is normal in size, contour, and echogenicity. Renal cortical thickness is normal. No calculi or focal parenchymal lesions. No hydronephrosis. LEFT KIDNEY: 11.4 x 6.0 x 5.0 cm (SAG x AP x TRV). The kidney is normal in size, contour, and echogenicity. Renal cortical thickness is normal. No renal calculi or hydronephrosis. At the lower pole, a 3.7 cm benign, simple exophytic cyst is seen, for which no imaging follow-up is recommended. BLADDER: Well distended. A 1.9 cm rightward shadowing bladder calculus is seen. Bilateral ureteral jets are demonstrated. Prevoid bladder volume is 307 mL. Postvoid bladder volume is 80 mL. ADDITIONAL FINDINGS: Prostate dimensions are 4.3 x 4.5 x 5.5 cm (volume 55.9 mL). IMPRESSION: 1. Unremarkable ultrasound appearance of the kidneys. 2. There is a borderline increased postvoid residual volume. 3. A 1.9 cm rightward bladder calculus is seen. 4. There is prostatomegaly. Assessment & Plan Assessment & Plan (1) BPH loc w urin obs/LUTS: Code(s): N40.1 - Benign prostatic hyperplasia with lower urinary tract symptoms Category: Medical (2) Urinary frequency: Code(s): R35.0 - Frequency of micturition Category: Medical (3) Bladder calculus: Code(s): N21.0 - Calculus in bladder Category: Medical Plan Urinary symptoms of daytime urinary frequency, nocturia x2, the patient is on torsemide 20 mg daily which is likely contributing to the daytime frequency. He drinks 1-2 cups of coffee daily. AUA symptom score 13/35 He is on doxazosin and finasteride. PSA 01/05/2024 is 0.87. Renal ultrasound. Bladder calculus. Follow-up office cystoscopy Coding Level of Care Code Est Pt Level 4 (22236) Diagnoses BPH loc w urin obs/LUTS N40.1 Urinary frequency R35.0 Bladder calculus N21.0
== END 2024-05-12 10:32 | disposition home or self-care (01) ==
PROVIDERS: PCP Family Medicine; Visit Provider Urology
DX: N40.1 Benign prostatic hyperplasia with lower urinary tract symptoms (principal); R35.0 Frequency of micturition; N21.0 Calculus in bladder
CPT/HCPCS: 99214

== ENCOUNTER → 2024-05-12 09:49 | Outpatient (BNVA) | payer OTHER, SELFPAY | PROVIDERS: PCP Family Medicine; Visit Provider Urology | DX: N40.1 Benign prostatic hyperplasia with lower urinary tract symptoms (principal); R35.0 Frequency of micturition; N21.0 Calculus in bladder | CPT/HCPCS: 99212 ==

== ENCOUNTER 2024-05-25 08:53 | Emergency (ER) | payer OTHER, SELFPAY ==
--- NOTE | ~2024-05-25 | XR_ITS ---
EXAMINATION: XR HIP, RIGHT CLINICAL INFORMATION: Pain COMPARISON: X-ray 09/17/2023 TECHNIQUE: Pelvis 2 views. 2 views of the right hip. FINDINGS: Right hip: No visible acute fracture or dislocation. Mild arthritis. Redemonstration of chronic deformity of the lesser trochanter. Pelvis: Mild left hip arthritis. No acute fracture is seen. Stable rounded chronic calcification in the left pelvis. SI joints and symphysis pubis are intact. Densities projected in the soft tissues of the medial right thigh, possibly overlying the patient. XR/XR hip RT w PEL1V IMPRESSION: Mild bilateral hip joint degenerative arthritis. No radiographic evidence of acute fracture or dislocation Electronically signed by: Abelino Mills MD 05/25/2024 10:21 AM EDT
[2024-05-25 09:03] VITALS: BP 165/69; PULSE 63; RESP 16; TEMP 36.3; O2SAT 95; BMI 39.2
--- NOTE | 2024-05-25 10:02 | ED_ITS ---
HPI - Extremity Problem General Chief complaint: Extremity Problem Stated complaint: r knee pain Time Seen by Provider: 05/25/24 09:57 Source: patient, RN notes reviewed and old records reviewed Mode of arrival: ambulatory History of Present Illness ED Provider: Carmela Quiroz PA-C HPI Narrative: 78-year-old male with a past medical history of HTN, arthritis, asthma, anxiety, depression, diabetes, SHANON, presenting to the ED complaining of acute on chronic right lower buttock pain radiating down RLE x 3 days. Denies recent injury/trauma or fall. States follows with Orthopedics and pain management, supposed to get pain injection. Reports associated paresthesias to RLE. Denies weakness, incontinence/retention, fever, dysuria/hematuria. Has been taking Tylenol for pain without relief Related Data Home Medications ?Medication ?Instructions ?Recorded ?Confirmed cholecalciferol (vitamin D3) 25 25 mcg PO DAILY 06/19/20 02/29/24 mcg (1,000 unit) capsule diclofenac sodium 1 % topical gel 2 g topical QID 06/19/20 02/29/24 (Voltaren) doxazosin 8 mg tablet 8 mg PO BEDTIME 06/19/20 02/29/24 latanoprost 0.005 % eye drops 1 drp ophthalmic (eye) QPM 06/19/20 02/29/24 loratadine 10 mg tablet (Allergy 10 mg PO DAILY 06/19/20 02/29/24 Relief (loratadine)) atorvastatin 40 mg tablet 40 mg PO BEDTIME 01/28/23 02/29/24 blood sugar diagnostic (OneTouch #10 ea 01/28/23 02/29/24 Ultra Test strips) carvedilol 25 mg tablet 25 mg PO 01/28/23 02/29/24 finasteride 5 mg tablet 5 mg PO QAM 01/28/23 02/29/24 hydralazine 100 mg tablet 100 mg PO TID 01/28/23 02/29/24 lancets #100 ea 01/28/23 02/29/24 lisinopril 40 mg tablet 40 mg PO QPM 01/28/23 02/29/24 metformin 500 mg tablet,extended 500 mg PO QPM 01/28/23 02/29/24 release 24 hr mupirocin 2 % topical ointment topical TID 01/28/23 02/29/24 sertraline 25 mg tablet 25 mg PO QAM 01/28/23 02/29/24 cholecalciferol (vitamin D3) 25 25 mcg PO QAM 12/01/23 02/29/24 mcg (1,000 unit) tablet Previous Rx's ?Medication ?Instructions ?Recorded albuterol sulfate 90 mcg/actuation 2 puff inhalation Q4-6H PRN 10/15/23 aerosol inhaler shortness of breath or wheezing #8.5 grams umeclidinium 62.5 mcg-vilanterol 1 inh inhalation DAILY 30 days #1 10/28/23 25 mcg/actuation powdr for ea inhalation (Anoro Ellipta) magnesium oxide 400 mg (241.3 mg 400 mg PO BEDTIME 30 days #30 tabs 12/01/23 magnesium) tablet torsemide 20 mg tablet 20 mg PO QAM 30 days #30 tabs 05/02/24 cyclobenzaprine 5 mg tablet 5 mg PO Q8H PRN pain (scale score 05/25/24 7-10) 5 days #14 tabs lidocaine 5 % topical patch 1 patch topical DAILY PRN pain #30 05/25/24 (Lidoderm) ea Allergies Allergy/AdvReac Type Severity Reaction Status Date / Time Penicillins Allergy Intermediate RASH Verified 05/25/24 09:07 Carbapenems Allergy Unknown Unknown Verified 05/25/24 09:07 Cephalosporins Allergy Unknown Unknown Verified 05/25/24 09:07 enviormental Allergy Severe coughing Uncoded 05/12/24 09:55 and sneezing Review of Systems Review of Systems: Yes all other systems are reviewed and are negative Constitutional: Constitutional: Reports as per [facility] Past Medical History Attestation statement: The following information was validated with the patient. Source: old records reviewed Medical History Spondylosis of lumbar region without myelopathy or radiculopathy Low back pain HTN (hypertension) Arthritis History of back pain History of fatty infiltration of liver Seasonal allergies Elevated cholesterol Asthma Anxiety Depression Diabetes mellitus History of COVID-19 Allergic rhinitis SHANON (obstructive sleep apnea) Obesity Smoker Surgical History Hx of ventral hernia repair Hx of colonoscopy History of left cataract extraction History of cystoscopy Hx of umbilical hernia repair Family History Family History Mother No problems noted. Father No problems noted. Brother CAD (coronary artery disease) Sister Alzheimer disease Social History Social History Are you a primary companion caregiver to a significant other at home: No Do you presently have visiting nurse or other home services: Yes Alcohol intake: never Patient Tobacco Use Status: Former Tobacco user Cigarette Packs Per Day: 0.5 Cigarettes Per Day: 10.0 Years Smoked: 60 +/- , quit- Oct 12 2023 Advance Directives: No Advance Directives Information Provided: No Do you have a plan to hurt others: No Plan Physical Exam Vital Signs: Vital Signs: Last Vital Signs Temp 96.7 F L 05/25/24 11:18 Pulse 51 05/25/24 11:18 Resp 18 05/25/24 11:18 BP 164/69 H 05/25/24 11:18 Pulse Ox 94 05/25/24 11:18 O2 Del Method Room Air 05/25/24 11:18 BMI result Body Mass Index 39.2 Const: General: cooperative, healthy appearing and no acute distress Orientation/consciousness: patient oriented x3 Limitations: no limitations HEENT: Head: Yes normal to inspection and Yes atraumatic Ears: hearing grossly normal bilaterally General nose exam: Normal external nose present Face and sinus: Yes normal facial exam Eyes: General: appearance normal, both eyes and all related structures EOM: EOMs intact bilaterally Neck: Neck: Yes normal visual inspection and Yes no meningeal signs Resp: Effort & Inspection: normal respiratory effort and no respiratory distress Cardio: Rate: regular rate GI: Inspection: Yes normal to inspection Palpation (GI): Soft to palpation, nontender, no guarding and not rigid : General: Yes no CVA tenderness Back/Spine/Pelvis: Other: No midline cervical/thoracic/lumbar spinous tenderness/step-off or deformity. + right-sided lower lumbar/buttock reproducible tenderness. No rash. Back: no CVA tenderness Skin: Rashes: no rashes Wounds: no wounds Neuro: Other: Strength intact throughout. No saddle anesthesia. Sensation intact to light touch. Neurovascular intact distally General: patient oriented x3, tone normal, moves all extremities and no meningeal signs Cranial nerves: Yes CN's II-XII intact bilaterally Gait exam (Neuro): Antalgic gait present Extrem: General: Yes normal to inspection Course Course Course Narrative: XR hip RT w PEL1V IMPRESSION: Mild bilateral hip joint degenerative arthritis. No radiographic evidence of acute fracture or dislocation > patient ambulating in the ED with steady gait. Reports symptomatic improvement after medications given. Results discussed with patient including worrisome signs and symptoms and strict return precautions, and when to return to the emergency department. They verbalized understanding and feel safe for discharge at this time. Medications Administered Discontinued Medications Generic Name Dose Route Start Last Admin Trade Name Carly PRN Reason Stop Dose Admin Cyclobenzaprine HCl 10 mg 05/25/24 10:22 05/25/24 10:30 Cyclobenzaprine Hcl 10 Mg Tablet PO 05/25/24 10:23 10 mg ONCE ONE Administration Lidocaine 1 patch 05/25/24 10:22 05/25/24 10:30 Lidocaine 4 % Patch Adh..Patch TRANSDERMA 05/25/24 10:23 1 patch ONCE ONE Administration Protocol Medical Decision Making Medical Decision Making MDM Narrative: 78-year-old male with a past medical history of HTN, arthritis, asthma, anxiety, depression, diabetes, SHANON, presenting to the ED complaining of acute on chronic right lower buttock pain radiating down RLE x 3 days. On exam vital signs stable, NAD, nontoxic appearing, physical exam as noted above with MSK reproducible tenderness. No midline spinous tenderness or red flag symptoms. Ambulating with antalgic gait. Concern for lumbar radiculopathy vs sciatica vs herniated disc. Low suspicion for pyelo/renal stone, cauda equina/cord compression or epidural abscess. Per pain management note on 01/25/2024 patient evaluated for same chronic sy mptoms, plan for neurosurgical evaluation vs neuro modulation Plan: Pain control, x-rays ordered in triage Please refer to course for remaining clinical decision making, interpretation of labs/imaging results, and discussions with consultants and/or family members. Differential Diagnosis Differential Diagnoses: The differential diagnosis associated with the presentation includes As above Independent Interpretation I performed an independent interpretation of an: Plain X-Ray Radiology Impression Discussion of test interpretation with radiology: I have reviewed the radiologist's reading. Independent Historian Clinical information obtained from an independent historian. History obtained from or confirmed by: Other External Record Review External record reviewed: Inpatient record, Office record, Outpatient record, Prior outpatient labs, Prior outpatient radiology, Primary care record and Outside ED record Tests considered The following testing was considered but not selected: As above Prescription Management I considered prescription management with: Pain Medication Chronic Conditions Patient?s care impacted by: Hypertension Discharge Plan Discharge Clinical Impression: Hip osteoarthritis, Chronic lumbar radiculopathy Patient Disposition: Home, Self-Care Instructions: Osteoarthritis (DC), Lumbar Radiculopathy (ED) Additional Instructions: Your x-ray shows bilateral hip degenerative arthritis. Flexeril is a muscle relaxer, take at night as it makes you drowsy, do not drive, drink alcohol, or operate machinery while taking it Lidoderm patches are numbing patches, apply to painful area In addition take Tylenol at home Please follow-up with Orthopedics and pain management If symptoms persist or worsen, pain becomes unbearable, you developed urinary retention or incontinence, or weakness return to the ED Prescriptions: New lidocaine [Lidoderm] 5 % adhesive patch,medicated 1 patch topical DAILY MDD remove after 12 hours PRN (Reason: pain) Qty: 30 0RF Rx Instructions: leave on most painful area for up to 12 hrs cyclobenzaprine 5 mg tablet 5 mg PO Q8H PRN (Reason: pain (scale score 7-10)) 5 Days Qty: 14 0RF No Action torsemide 20 mg tablet 20 mg PO QAM 30 Days Qty: 30 6RF albuterol sulfate 90 mcg/actuation HFA aerosol inhaler 2 puff inhalation Q4-6H PRN (Reason: shortness of breath or wheezing) Qty: 8.5 0RF doxazosin 8 mg tablet 8 mg PO BEDTIME latanoprost 0.005 % drops 1 drp ophthalmic (eye) QPM loratadine [Allergy Relief (loratadine)] 10 mg tablet 10 mg PO DAILY cholecalciferol (vitamin D3) 25 mcg (1,000 unit) capsule 25 mcg PO DAILY diclofenac sodium [Voltaren] 1 % gel 2 g topical QID Rx Instructions: apply to single elbow, wrist or hand; for hand includes palm/fingers/back of hand cholecalciferol (vitamin D3) 25 mcg (1,000 unit) tablet 25 mcg PO QAM magnesium oxide 400 mg (241.3 mg magnesium) tablet 400 mg PO BEDTIME 30 Days Qty: 30 6RF Rx Instructions: may hold for loose stools sertraline 25 mg tablet 25 mg PO QAM hydralazine 100 mg tablet 100 mg PO TID metformin 500 mg tablet extended release 24 hr 500 mg PO QPM atorvastatin 40 mg tablet 40 mg PO BEDTIME carvedilol 25 mg tablet 25 mg PO finasteride 5 mg tablet 5 mg PO QAM lisinopril 40 mg tablet 40 mg PO QPM mupirocin 2 % ointment topical TID (DME) OneTouch Ultra Test Strip See Rx Instructions .ROUTE BID Qty: 10 Rx Instructions: As directed (DME) lancets Misc See Rx Instructions .ROUTE BID Qty: 100 Rx Instructions: As directed Anoro Ellipta 62.5-25 mcg/actuation blister with device 1 inh inhalation DAILY 30 Days Qty: 1 6RF Referrals: [facility] [place] Orthopedic Surgeons [Provider Group] [facility] [place] Pain Management [Provider Group] Print Language: Chinese
--- OUTSIDE RECORDS SUMMARY | 2024-05-25 10:15 | XMS_ITS ---
Author Organization [facility] No information ASSESSMENT No information CHIEF COMPLAINT No information Vital Signs Service date Service time Height in Weight lbs Pulse Bp systolic Bp diastolic Bp comment Bmi Clinician [id number] 09:56:36 66 [phone] 68 Report ed by patient, taken today at home. 36.1 5 Colleen Larson MSN, CLINICAL TECHNOLOGIST, AMMUNITION ASSEMBLY I LABORER-BC [id number] 11:32:22 June Rowe APRN [id number] 08:34:24 [phone] 64 per patient report 39.2 2 Aj Shanks SALVAGE ENGINEERING TECHNICIAN OBJECTIVE DATA No information PHYSICAL EXAMINATION No information TREATMENT PLAN No information PROBLEMS No information RESULTS No information REVIEW OF SYSTEMS No information SUBJECTIVE DATA No information MEDICATIONS No information
[2024-05-25] MEDS: Cyclobenzaprine HCl 10 MG TABLET PO (10:30)
[2024-05-25] MEDS: Lidocaine 4 % Patch ADH..PATCH 1 PATCH TRANSDERMA (10:30)
[2024-05-25 11:18] VITALS: BP 164/69; PULSE 51; RESP 18; TEMP 35.9; O2SAT 94
[2024-05-25 11:39] VITALS: BP 164/69; PULSE 51; RESP 18; TEMP 35.9; O2SAT 94
== END 2024-05-25 11:49 | disposition home or self-care (01) ==
PROVIDERS: Emergency Provider Emergency Medicine; PCP Family Medicine
DX: M16.0 Bilateral primary osteoarthritis of hip (principal); M54.16 Radiculopathy, lumbar region
CPT/HCPCS: 73502; 99283; 99284

== ENCOUNTER 2024-05-26 09:37 | Outpatient (AMB) | payer OTHER, SELFPAY ==
--- NOTE | 2024-05-26 09:38 | MHC.OFFVIS ---
Intake Visit Reasons: Neuro recommend L3 transforaminal nerve block. Intake Note: Bharathi comes in to discuss Neurosurgery recommendations L3 transforaminal nerve block. Patient is accompanied by two of his daughters. Reports pain 05/26 Product Applications Engineer Required: Yes Product Applications Engineer Services: Product Applications Engineer Offered & Declined Product Applications Engineer Name: Daughter Obdulia Dumas Accompanied by: Daughter Allergies Penicillins Allergy (Intermediate, Verified 05/26/24 09:51) RASH Carbapenems Allergy (Unknown, Verified 05/26/24 09:51) Unknown Cephalosporins Allergy (Unknown, Verified 05/26/24 09:51) Unknown enviormental Allergy (Severe, Uncoded 05/12/24 09:55) coughing and sneezing HPI Comments Details: Mr. Piter Angel is in my office today again to discuss possibility of treatment with interventional pain management. He reports that his legs are getting weaker, he reports shock-like pain sensation in left more than right lower extremity. He was sent for MRI of the lumbar spine and results of the MRI dictated as below. I referred him for the consultation with neuro spine office and and they recommended to perform L3-L4 transforaminal epidural steroid injection for this patient on the left. I will perform this procedure. However recently patient went for the hip x-ray. On the hip x-ray there was left hip with evidence of mild arthritis. If transforaminal epidural steroid injection will not work I will schedule him for intra-articular left hip injection. His most of the pain is the print in the projection of the iliotibial band. And although he relates this pain into his back the relation to the back pain is very vague. PFSH Medical History Spondylosis of lumbar region without myelopathy or radiculopathy Low back pain HTN (hypertension) Arthritis History of back pain History of fatty infiltration of liver Seasonal allergies Elevated cholesterol Asthma Anxiety Depression Diabetes mellitus History of COVID-19 Allergic rhinitis SHANON (obstructive sleep apnea) Obesity Smoker Surgical History Hx of ventral hernia repair Hx of colonoscopy History of left cataract extraction History of cystoscopy Hx of umbilical hernia repair Family History Mother No problems noted. Father No problems noted. Brother CAD (coronary artery disease) Sister Alzheimer disease Social History Are you a primary care attendant to a significant other at home: No Do you presently have visiting nurse or other home services: Yes Alcohol intake: never Patient Tobacco Use Status: Former Tobacco user Cigarette Packs Per Day: 0.5 Cigarettes Per Day: 10.0 Years Smoked: 60 +/- , quit- Oct 12 2023 Review of Systems Const All systems reviewed & are unremarkable except as noted in HPI and below ENT Reports Normal hearing present Neuro Reports Normal hearing present Physical Exam Const General: cooperative and no acute distress Orientation/consciousness: patient oriented x3 HEENT Other: left parietal head lump Neck Neck: Yes supple Resp Effort & Inspection: normal respiratory effort and able to speak in complete sentences Neuro General: patient oriented x3 and moves all extremities Cranial nerves: Yes Normal hearing present Cognition (Neuro): normal cognition Psych Appearance: grossly normal Mental Status: mental status grossly normal Results Reviewed Results Reviewed: 10/29/23 MR lumbar spine wo con FINDINGS: Motion degraded examination. STIR sequence is particularly motion degraded and near nondiagnostic. Within this limitation, no significant marrow edema is identified. Rightward curvature of the lumbar spine. No suspicious marrow signal or focal osseous lesion. T12 and L2 vertebral body hemangiomas. Mild right-sided type II endplate marrow signal changes at L5-S1 The vertebral body heights are maintained. Multilevel disc dessication and height loss. The conus medullaris terminates at the level of L1. The distal spinal cord is normal in appearance. The cauda equina nerve roots appear normal. No significant abnormalities of the paraspinal musculature. Limited evaluation of the intra-abdominal structures without significant abnormalities. Right renal cyst for which no further imaging follow-up is required. The abdominal aorta is of normal contour and caliber. SPINAL LEVELS: T12-L1: Shallow disc bulge. No significant spinal canal or neural foraminal narrowing L1-L2: No significant spinal canal or neuroforaminal narrowing. Shallow disc bulge and mild facet arthropathy. L2-L3: No significant spinal canal or neuroforaminal narrowing. L3-L4: Left greater than right facet arthropathy. Left eccentric disc osteophyte complex. Ligamentum flavum thickening. No significant central spinal canal stenosis. Stable mild right and moderate to severe left neural foraminal narrowing with impingement of the exiting left L3 nerve root. L4-L5: Facet arthropathy. Shallow disc bulge. No significant central spinal canal stenosis. Stable mild bilateral neural foraminal narrowing, left greater than right. L5-S1: Right greater than left facet arthropathy with right joint effusion. Right eccentric disc osteophyte complex. No significant central spinal canal stenosis. Stable severe right neural foraminal narrowing with impingement of the exiting right L5 nerve root and right subarticular zone narrowing with possible impingement of the traversing right S1 nerve root IMPRESSION: Rightward curvature of the lumbar spine and multilevel spondylosis as described above appears similar to MRI from 09/29/2022 without significant central spinal canal narrowing. Neural foraminal stenosis is worst and severe on the right at L5-S1 with impingement of the exiting right L5 nerve root and moderate to severe on the left at L3-L4 with impingement of the exiting left L3 nerve root. Assessment & Plan Assessment & Plan (1) Lumbar radiculopathy: Code(s): M54.16 - Radiculopathy, lumbar region Category: Medical (2) Disc degeneration, lumbar: Code(s): M51.36 - Other intervertebral disc degeneration, lumbar region Category: Medical Plan Neurosurgical office recommended L3-L4 transforaminal epidural steroid injection on the left. I will schedule this patient for this procedure. However recently he had an x-ray done and on x-ray there were some moderate inflammation in the projection of the left hip joint. If the transforaminal epidural steroid injection will not be working I probably will perform intra-articular hip injection. The neurosurgical office did not find a reason to go for any other interventions. I will see this patient in 2 weeks after L3-L4 transforaminal epidural steroid injection. Patient Instructions: I here by testify that I spent 32 minutes in conversation with this patient as well as evaluating his prior records evaluating prior records of the neurosurgical office and evaluating current x-ray images as well as planning his care and organizing this note. Coding Level of Care Code Est Pt Level 4 (73614) Diagnoses Lumbar radiculopathy M54.16 Disc degeneration, lumbar M51.36
== END 2024-05-26 10:20 | disposition home or self-care (01) ==
PROVIDERS: PCP Family Medicine; Visit Provider Anesthesiology
DX: M54.16 Radiculopathy, lumbar region (principal); M51.369 Other intervertebral disc degeneration, lumbar region without mention of lumbar back pain or lower extremity pain
CPT/HCPCS: 99214

== ENCOUNTER → 2024-05-26 09:37 | Outpatient (BNVA) | payer OTHER, SELFPAY | PROVIDERS: PCP Family Medicine; Visit Provider Anesthesiology | DX: M54.16 Radiculopathy, lumbar region (principal); M51.369 Other intervertebral disc degeneration, lumbar region without mention of lumbar back pain or lower extremity pain | CPT/HCPCS: 99212 ==

== ENCOUNTER 2024-06-13 09:08 | Outpatient (AMB) | payer OTHER, SELFPAY ==
[2024-06-13 13:44] VITALS: BP 144/72; BMI 39.2
--- NOTE | 2024-06-13 13:44 | A.OFFVIS_ITS ---
Vital Signs 06/13/24 13:44 Height 5 ft 6 in Weight 243 lb BMI 39.2 BP 144/72 H Blood Pressure Location Rt brachial Position Sitting Intake Visit Reasons: 6 month F/U Allergies Penicillins Allergy (Intermediate, Verified 05/26/24 09:51) RASH Carbapenems Allergy (Unknown, Verified 05/26/24 09:51) Unknown Cephalosporins Allergy (Unknown, Verified 05/26/24 09:51) Unknown enviormental Allergy (Severe, Uncoded 05/12/24 09:55) coughing and sneezing Medication List - Last Reconciled 06/20/24 by Lauren Vogt, ENGINEER/CONDUCTOR albuterol sulfate 90 mcg/actuation 2 puffs inhalation Q4-6H PRN atorvastatin 40 mg PO BEDTIME blood sugar diagnostic ([employer] Ultra Test strips) As directed carvedilol 25 mg PO cholecalciferol (vitamin D3) 25 mcg PO DAILY cholecalciferol (vitamin D3) 25 mcg PO QAM cyclobenzaprine 5 mg PO Q8H PRN 5 days diclofenac sodium 1% (Voltaren) 2 grams topical QID doxazosin 8 mg PO BEDTIME finasteride 5 mg PO QAM hydralazine 100 mg PO TID lancets As directed latanoprost 0.005% 1 drp ophthalmic (eye) QPM lidocaine 5% (Lidoderm) 1 patch topical DAILY PRN MDD remove after 12 hours lisinopril 40 mg PO QPM loratadine (Allergy Relief (loratadine)) 10 mg PO DAILY magnesium oxide 400 mg PO BEDTIME 30 days metformin ER 500 mg PO QPM mupirocin 2% topical TID sertraline 25 mg PO QAM torsemide 20 mg PO QAM 30 days umeclidinium-vilanterol 62.5-25 mcg/actuation (Anoro Ellipta) 1 inh inhalation DAILY 30 days HPI Comments Details: 78-yr-old male presents for f/u visit. Pt is accompanied by his dtr. Pt reports the following interval medical history changes: He has been having bothersome right hip pain, whgich is worse when walking and so now is using a cane. He is seeing pain management for this. He is still Ind w/ ADLs. Tremor is stable, worse when he is in pain. . Sometimes when he holds something or is trying to eat. His hands can fall asleep or be numb in the morning- resolves with movement. He can be stiff. He notes left lower extremity leg cramps at night but also when walking. No falls. Not able to walk as much as he would like now. Denies hallucinations. Patient states his memory is stable. Pt continues to be able to pay some (but not all bills), play his numbers. He is able to cook w/o difficulty. He enjoys playing games w/ friends/family. He is sleeping well with his CPAP machine. PFSH Medical History Spondylosis of lumbar region without myelopathy or radiculopathy Low back pain HTN (hypertension) Arthritis History of back pain History of fatty infiltration of liver Seasonal allergies Elevated cholesterol Asthma Anxiety Depression Diabetes mellitus History of COVID-19 Allergic rhinitis SHANON (obstructive sleep apnea) Obesity Smoker Surgical History Hx of ventral hernia repair Hx of colonoscopy History of left cataract extraction History of cystoscopy Hx of umbilical hernia repair Family History Mother No problems noted. Father No problems noted. Brother CAD (coronary artery disease) Sister Alzheimer disease Social History Are you a primary acute care assistant to a significant other at home: No Do you presently have visiting nurse or other home services: Yes Alcohol intake: never Patient Tobacco Use Status: Former Tobacco user Cigarette Packs Per Day: 0.5 Cigarettes Per Day: 10.0 Years Smoked: 60 +/- , quit- Oct 12 2023 Physical Exam Vital Signs: Last Vital Signs BP 144/72 H 06/13/24 13:44 BMI result Body Mass Index 39.2 Const General: cooperative and no acute distress Resp Effort & Inspection: normal respiratory effort and able to speak in complete sentences Neuro Other: General: A&O x's 3 Expression: Ok, mild right lower facial droop, but good smile. Voice: ok Tremor: BUE mild postural tremor, R > L. Tone: UE mild rigidity Dyskinesia: None FFM: Ok Foot taps: RLE decreased Gait: Mild decreased right arm swing, shorter steps, slightly antalgic gait w/ cane. Psych: Pleasant affect Assessment & Plan Assessment & Plan (1) Tremor: Code(s): R25.1 - Tremor, unspecified Category: Medical (2) Memory difficulties: Code(s): R41.3 - Other amnesia Category: Medical (3) Periodic limb movement disorder (PLMD): Comment: PLMS 29/hr w/ PLMS aurosal index of 3.4/hr Code(s): G47.61 - Periodic limb movement disorder Category: Medical (4) Leg cramps: Code(s): R25.2 - Cramp and spasm Category: Medical Plan Monitor cognition. Monitor tremor. Continue optimizing CV and metabolic risk factors. Continue cognitive and social stimulating activities. Ensure adequate fluid intake. Continue magnesium oxide 400 mg q.h.s. for nocturnal leg cramps. May continue cyclobenzaprine 5mg prn. Will refer for PT eval & tx for gait, strengthening, flexibility, endurance eval & tx. F/u w/ cardiology and pain managamenet as scheduled. Continue APAP prn, as patient is having good clinical effect from use Future considerations- neuroprotective agent. trialing ? f/u in 6 months or sooner prn. Orders: Orders PT Evaluation and Treatment Today M25.551 - Pain in right hip, M54.16 - Radiculopathy, lumbar region, R25.2 - Cramp and spasm, R29.898 - Other symptoms and signs involving the musculoskeletal system Coding Level of Care Code Est Pt Level 4 (56237) Diagnoses Tremor R25.1 Memory difficulties R41.3 Periodic limb movement disorder (PLMD) G47.61 Leg cramps R25.2
== END 2024-06-13 11:19 | disposition home or self-care (01) ==
PROVIDERS: PCP Family Medicine; Visit Provider Nurse Practitioner Family
DX: R25.1 Tremor, unspecified (principal); R41.3 Other amnesia; G47.61 Periodic limb movement disorder; R25.2 Cramp and spasm
CPT/HCPCS: 99214

== ENCOUNTER → 2024-06-13 09:08 | Outpatient (BNVA) | payer OTHER, SELFPAY | PROVIDERS: PCP Family Medicine; Visit Provider Nurse Practitioner Family | DX: R25.1 Tremor, unspecified (principal); R41.3 Other amnesia; G47.61 Periodic limb movement disorder; R25.2 Cramp and spasm; M25.551 Pain in right hip; M54.16 Radiculopathy, lumbar region; R29.898 Other symptoms and signs involving the musculoskeletal system | CPT/HCPCS: 99212 ==

== ENCOUNTER 2024-06-20 08:52 | Outpatient (AMB) | payer OTHER, SELFPAY ==
[2024-06-20 09:00] VITALS: BP 112/60; PULSE 76; O2SAT 98; BMI 39.1
--- NOTE | 2024-06-20 09:00 | A.OFFVIS_ITS ---
Vital Signs 06/20/24 09:00 Height 5 ft 6 in Weight 242 lb 8.136 oz BMI 39.1 BP 112/60 Blood Pressure Location Lt brachial Position Sitting Pulse 76 Pulse Source Doppler Pulse Oximetry (%) 98 Oxygen Delivery Method Room Air Intake Visit Reasons: COPD Transcribing Machine Mechanic Required: Yes Transcribing Machine Mechanic Name: Debbi FonsecaHayleeMigel Allergies Penicillins Allergy (Intermediate, Verified 06/20/24 09:08) RASH Carbapenems Allergy (Unknown, Verified 06/20/24 09:08) Unknown Cephalosporins Allergy (Unknown, Verified 06/20/24 09:08) Unknown enviormental Allergy (Severe, Uncoded 05/12/24 09:55) coughing and sneezing HPI HPI COPD: Details: 78-year-old gentleman, former 30+ pack-year smoker, quit September of 2023 followed for mild COPD. He continues on Anoro and albuterol MDI with good control of his underlying symptoms. His orthopnea has also well controlled on current regimen of torsemide 20 mg daily. He does complain of mild bronchitic exacerbation ongoing for several days symptomatic with cough productive of brown sputum. PFSH Medical History Spondylosis of lumbar region without myelopathy or radiculopathy Low back pain HTN (hypertension) Arthritis History of back pain History of fatty infiltration of liver Seasonal allergies Elevated cholesterol Asthma Anxiety Depression Diabetes mellitus History of COVID-19 Allergic rhinitis SHANON (obstructive sleep apnea) Obesity Smoker Surgical History Hx of ventral hernia repair Hx of colonoscopy History of left cataract extraction History of cystoscopy Hx of umbilical hernia repair Family History Mother No problems noted. Father No problems noted. Brother CAD (coronary artery disease) Sister Alzheimer disease Social History Are you a primary care assistant to a significant other at home: No Do you presently have visiting nurse or other home services: Yes Alcohol intake: never Patient Tobacco Use Status: Former Tobacco user Cigarette Packs Per Day: 0.5 Cigarettes Per Day: 10.0 Years Smoked: 60 +/- , quit- Oct 12 2023 Review of Systems Const Denies daytime sleepiness, Denies excessive sweating, Denies fatigue, Denies fever(s), Denies lethargy, Denies malaise, Denies night sweats, Denies snoring and Denies weight loss Eyes Denies blurry vision and Denies itchy eyes ENT Denies nasal congestion, Denies post nasal drip, Denies sinus pain, Denies sinus pressure and Denies other ( Thrush) Card Denies chest pain, Denies pedal edema, Denies dyspnea, Denies orthopnea and Denies paroxysmal nocturnal dyspnea Resp Reports cough, Denies hemoptysis, Reports excessive phlegm production, Denies dyspnea, Denies snoring and Denies wheezing GI Denies abdominal pain and Denies heartburn Musc Denies myalgias, Denies arthralgias and Denies joint swelling Skin/Breast Denies rash Neuro Denies memory loss and Denies seizure-like activity Psych Denies abnormal sleep pattern, Denies anxiety and Denies memory loss Endo Denies excessive sweating, Denies fatigue and Denies heat intolerance Wilber/Lymph Denies easy bruising Aller/Immun Denies itchy eyes, Denies seasonal rhinorrhea and Denies wheezing Physical Exam Vital Signs: Last Vital Signs Pulse 76 06/20/24 09:00 BP 112/60 06/20/24 09:00 Pulse Ox 98 06/20/24 09:00 Oxygen Delivery Method Room Air 06/20/24 09:00 BMI result Body Mass Index 39.1 Const General: no acute distress and alert Nutritional Appearance: obese Orientation/consciousness: Other orientation findings ( oriented) HEENT Head: Yes atraumatic Eyes General: appearance normal, both eyes and all related structures Sclerae: sclerae normal EOM: EOMs intact bilaterally Neck Neck: Yes supple Lymphatic: no lymphadenopathy noted Resp Effort & Inspection: normal respiratory effort and no use of accessory muscles Auscultation: clear to auscultation bilaterally Cardio Rate: regular rate Rhythm: regular rhythm Heart sounds: no gallops, no murmurs and no rubs Skin General skin exam: other ( warm) Extrem General: No clubbing, No cyanosis and No edema Assessment & Plan Assessment & Plan (1) COPD (chronic obstructive pulmonary disease): Code(s): J44.9 - Chronic obstructive pulmonary disease, unspecified Category: Medical Plan: Well controlled on current regimen of Anoro and albuterol MDI. Continue current regimen. Now with mild bronchitic exacerbation, will treat with a course of azithromycin. (2) Personal history of nicotine dependence: Code(s): Z87.891 - Personal history of nicotine dependence Category: Medical Plan: Results of lung cancer screening CT chest reviewed, no worrisome nodules noted. Does not qualify for further screening. (3) DAIGLE (dyspnea on exertion): Code(s): R06.09 - Other forms of dyspnea Category: Medical Plan: Orthopnea component well controlled on current diuretic regimen of torsemide 20 mg daily. Continue current regimen. Medications: New azithromycin For 250 mg dose pack: take 500 mg today (day 1), then 250 mg for 4 days (days 2-5) PO 6 tabs 0RF Refilled albuterol sulfate 90 mcg/actuation 2 puffs inhalation Q4-6H PRN 8.5 grams 6RF shortness of breath or wheezing Coding Level of Care Code Est Pt Level 4 (76489) Complex EM visit Add On G2211 Diagnoses COPD (chronic obstructive pulmonary disease) J44.9 Personal history of nicotine dependence Z87.891 DAIGLE (dyspnea on exertion) R06.09
== END 2024-06-20 09:19 | disposition home or self-care (01) ==
LOC: HO.HPS 08:53
PROVIDERS: PCP Family Medicine; Visit Provider Internal Medicine Pulmonary Disease
DX: J44.9 Chronic obstructive pulmonary disease, unspecified (principal); Z87.891 Personal history of nicotine dependence; R06.09 Other forms of dyspnea
CPT/HCPCS: 99214; G2211

== ENCOUNTER → 2024-06-20 08:52 | Outpatient (BNVA) | payer OTHER, SELFPAY | PROVIDERS: PCP Family Medicine; Visit Provider Internal Medicine Pulmonary Disease | DX: J44.9 Chronic obstructive pulmonary disease, unspecified (principal); R06.09 Other forms of dyspnea; Z87.891 Personal history of nicotine dependence | CPT/HCPCS: 99212 ==

== ENCOUNTER 2024-07-04 09:50 | Outpatient (AMB) | payer OTHER, SELFPAY ==
--- NOTE | 2024-07-03 16:06 | A.OFFVIS_ITS ---
Intake Visit Reasons: cysto Intake Note: Patient is present for Cystoscopy Urology Medication:NONE Antibiotic Allergy:PENICILLIN Blood Thinner:NONE Lot:[id number] Exp:06/20/27 Equipment Mechanic Specialist Required: Yes Equipment Mechanic Specialist Name: [id number] Allergies Penicillins Allergy (Intermediate, Verified 07/20/24 10:02) RASH Carbapenems Allergy (Unknown, Verified 07/20/24 10:02) Unknown Cephalosporins Allergy (Unknown, Verified 07/20/24 10:02) Unknown enviormental Allergy (Severe, Uncoded 07/04/24 10:05) coughing and sneezing HPI Comments Details: 07/04/24--here for cysto Urinary symptoms of daytime urinary frequency, nocturia x2, the patient is on torsemide 20 mg daily which is likely contributing to the daytime frequency. He drinks 1-2 cups of coffee daily. AUA symptom score 13/35 He is on doxazosin and finasteride. PSA 01/05/2024 is 0.87. Renal ultrasound. Bladder calculus. Cystoscopy findings: trilobar enlargement of prostate, bladder stone visualized Review of chart 05/12/24--Bharathi is here for follow-up, painter barrel utilized. I have reviewed renal ultrasound there is a bladder stone visualized. The patient states that about 1 or 2 years ago he had a bladder stone that was crushed by another urologist. Discussed follow-up office cystoscopy for further evaluation. 02/29/24---Bharathi is a 78-year-old male, Nepali-speaking, painter barrel utilized; who is here with urinary symptoms of daytime urinary frequency, occasional intermittent stream nocturia x2 on review of the medication he is on torsemide 20 mg daily which is likely contributing to the daytime frequency. He drinks 1-2 cups of coffee daily. AUA symptom score 13/35 He denies blood in the urine, he denies dysuria. Comorbidity diabetes. At this time we will hold off on any medication such as an anticholinergic. Urinalysis is negative, bladder scan PVR is 15 mL. He is on doxazosin and finasteride. PSA 01/05/2024 is 0.87. Will check renal ultrasound. PFSH Medical History Spondylosis of lumbar region without myelopathy or radiculopathy Low back pain HTN (hypertension) Arthritis History of back pain History of fatty infiltration of liver Seasonal allergies Elevated cholesterol Asthma Anxiety Depression Diabetes mellitus History of COVID-19 Allergic rhinitis SHANON (obstructive sleep apnea) Obesity Smoker Surgical History Hx of ventral hernia repair Hx of colonoscopy History of left cataract extraction History of cystoscopy Hx of umbilical hernia repair Family History Mother No problems noted. Father No problems noted. Brother CAD (coronary artery disease) Sister Alzheimer disease Social History Are you a primary neurocritical care physician to a significant other at home: No Do you presently have visiting nurse or other home services: Yes Alcohol intake: never Patient Tobacco Use Status: Former Tobacco user Cigarette Packs Per Day: 0.5 Cigarettes Per Day: 10.0 Years Smoked: 60 +/- , quit- Oct 12 2023 Review of Systems Const All systems reviewed & are unremarkable except as noted in HPI and below Reports no additional complaints Eyes Reports no additional complaints ENT Reports no additional complaints Card Reports no additional complaints Resp Reports no additional complaints GI Reports no additional complaints Reports as per HPI Musc Reports no additional complaints Skin/Breast Reports system reviewed and no additional complaints, except as documented Neuro Reports no additional complaints Psych Reports no additional complaints Endo Reports no additional complaints Wilber/Lymph Reports no additional complaints Aller/Immun Reports no additional complaints Office Procedures Cystoscopy Consent Discussed risk and benefit or proposed procedure with the patient. Information consent for procedure given to the patient. Discussed technical aspects, risks, benefits and alternatives in full. Addressed all of the patient's questions and concerns regarding the procedure. The patient demonstrated knowledge and understanding. They wish to proceed with this procedure. Preparation The patient was prepped in the usual manner. A security installation sales technician was present and in the room. Genitalia was prepped with betadine solution in a sterile manner. Lidocaine Jelly 2% was placed into the urethra and 16Fr flexible Olympus cystoscope was inserted into the meatus after adequate lubrication. Procedure Time out per protocol performed. Bladder Inspection Bladder Inspection: The bladder was inspected in its entirety with utilization retroflexion displaying: Tumor(s): no suspicious bladder lesions visualized Trabeculation: Mild Moderate with cellule changes Mucosal Erthema: mild Orifices: normal shape and position Urethra: normal Cystoscopy findings: bladder calculus visualized, prostatic urethra trilobar enlargement, obstructive, bulbous urethra WNL, no suspicious bladder lesions visualized [id number] DISPOSABLE SCOPE URO-G FLEXIBLE SCOPE Procedure code (CPT) selection complete Office Meds lidocaine HCl 2 % mucosal jelly in applicator Performing Provider: Kishore Ayala MD Performing Location: [facility] [place] [facility] Documented (not given) by: Kishore Ayala MD on 07/04/24 11:17 Dose Route Admin Location Dispensed Lot Number Expiration Date NDC Engineering Psychologist 10 mL intra-urethral mL naproxen 500 mg tablet Performing Provider: Kishore Ayala MD Performing Location: [facility] [place] [facility] Documented (not given) by: Kishore Ayala MD on 07/04/24 11:17 Dose Route Admin Location Dispensed Lot Number Expiration Date NDC Engineering Psychologist 500 mg PO tab ciprofloxacin HCl 500 mg tablet Performing Provider: Kishore Ayala MD Performing Location: [facility] [place] [facility] Documented (not given) by: Kishore Ayala MD on 07/04/24 11:17 Dose Route Admin Location Dispensed Lot Number Expiration Date NDC Engineering Psychologist 500 mg PO tab Results AMB Urinalysis, Automated UA Leukoctes 0 Isaias/uL Last Edit by DEAN Dunaway on 07/04/24 10:31 UA Nitrite Negative Last Edit by DEAN Dunaway on 07/04/24 10:31 UA Urobilinogen 0.2 mg/dL Last Edit by DEAN Dunaway on 07/04/24 10:3 1 UA Protein 0 mg/dL Last Edit by DEAN Dunaway on 07/04/24 10:31 UA pH 6.0 Last Edit by DEAN Dunaway on 07/04/24 10:31 UA Blood 0 Jhon/uL Last Edit by DEAN Dunaway on 07/04/24 10:31 UA Specific [place] 1.010 Last Edit by DEAN Dunaway on 07/04/24 10: 31 UA Ketone Negative Last Edit by DEAN Dunaway on 07/04/24 10:31 UA Bilirubin 0 mg/dL Last Edit by DEAN Dunaway on 07/04/24 10:31 UA Glucose 0 mg/dL Last Edit by DEAN Dunaway on 07/04/24 10:31 Results Reviewed Results Reviewed: Laboratory Last Values Urine pH (Auto) 6.0 07/04/24 10:30 Specific [place] (Auto) 1.010 07/04/24 10:30 Urine Protein (Auto) 0 mg/dL 07/04/24 10:30 Glucose (UA)(Auto) 0 mg/dL 07/04/24 10:30 Urine Ketones (Auto) Negative 07/04/24 10:30 Urine Blood (Auto) 0 Jhon/uL 07/04/24 10:30 Urine Nitrite (Auto) Negative 07/04/24 10:30 Urine Bilirubin (Auto) 0 mg/dL 07/04/24 10:30 Urine Urobilinogen (Auto) 0.2 mg/dL 07/04/24 10:30 Leukocyte Esterase (Auto) 0 Isaias/uL 07/04/24 10:30 Date of Service: 03/04/24 US RETROPERITONEAL COMPLETE (RENAL) CLINICAL INFORMATION: Benign prostatic hyperplasia with lower urinary tract symptoms. COMPARISON: Ultrasound renal 01/26/2020. CT abdomen and pelvis 08/29/2018. X-ray KUB 07/21/2011 and 06/11/2010. TECHNIQUE: Real-time imaging of the kidneys and bladder. FINDINGS: RIGHT KIDNEY: 10.3 x 6.8 x 5.0 cm (SAG x AP x TRV). The kidney is normal in size, contour, and echogenicity. Renal cortical thickness is normal. No calculi or focal parenchymal lesions. No hydronephrosis. LEFT KIDNEY: 11.4 x 6.0 x 5.0 cm (SAG x AP x TRV). The kidney is normal in size, contour, and echogenicity. Renal cortical thickness is normal. No renal calculi or hydronephrosis. At the lower pole, a 3.7 cm benign, simple exophytic cyst is seen, for which no imaging follow-up is recommended. BLADDER: Well distended. A 1.9 cm rightward shadowing bladder calculus is seen. Bilateral ureteral jets are demonstrated. Prevoid bladder volume is 307 mL. Postvoid bladder volume is 80 mL. ADDITIONAL FINDINGS: Prostate dimensions are 4.3 x 4.5 x 5.5 cm (volume 55.9 mL). IMPRESSION: 1. Unremarkable ultrasound appearance of the kidneys. 2. There is a borderline increased postvoid residual volume. 3. A 1.9 cm rightward bladder calculus is seen. 4. There is prostatomegaly. Assessment & Plan Assessment & Plan (1) BPH loc w urin obs/LUTS: Code(s): N40.1 - Benign prostatic hyperplasia with lower urinary tract symptoms Category: Medical (2) Urinary frequency: Code(s): R35.0 - Frequency of micturition Category: Medical (3) Bladder calculus: Code(s): N21.0 - Calculus in bladder Category: Medical (4) Hematuria: Code(s): R31.9 - Hematuria, unspecified Category: Medical Plan Urinary symptoms of daytime urinary frequency, nocturia x2, the patient is on torsemide 20 mg daily which is likely contributing to the daytime frequency. PSA 01/05/2024 is 0.87. Orders: Orders AMB Urinalysis Automated 07/04/24 Z13.9 - Encounter for screening, unspecified AMB Cystoscopy 07/04/24 N21.0 - Calculus in bladder, R35.0 - Frequency of micturition, R31.9 - Hematuria, unspecified Medications: New naproxen 500 mg PO ONCE 1 tab 0RF N21.0 - Calculus in bladder, R35.0 - Frequency of micturition, R31.9 - Hematuria, unspecified lidocaine HCl 2% 10 mL intra-urethral ONCE 10 mL 0RF N21.0 - Calculus in bladder, R35.0 - Frequency of micturition, R31.9 - Hematuria, unspecified ciprofloxacin HCl 500 mg PO ONCE 1 tab 0RF N21.0 - Calculus in bladder, R35.0 - Frequency of micturition, R31.9 - Hematuria, unspecified Coding Level of Care Code Est Pt Level 4 (02641) Diagnoses BPH loc w urin obs/LUTS N40.1 Urinary frequency R35.0 Bladder calculus N21.0 Hematuria R31.9 CPT Codes Cystoscopy - CPT: 25137-Cergqvival ([id number])
== END 2024-07-04 11:39 | disposition home or self-care (01) ==
PROVIDERS: PCP Family Medicine; Visit Provider Urology
DX: Z13.9 Encounter for screening, unspecified (principal); N40.1 Benign prostatic hyperplasia with lower urinary tract symptoms; R35.0 Frequency of micturition; N21.0 Calculus in bladder; R31.9 Hematuria, unspecified
CPT/HCPCS: 52000; 99214

== ENCOUNTER → 2024-07-04 09:50 | Outpatient (BNVA) | payer OTHER, SELFPAY | PROVIDERS: PCP Family Medicine; Visit Provider Urology | DX: N40.1 Benign prostatic hyperplasia with lower urinary tract symptoms (principal); R35.0 Frequency of micturition; N21.0 Calculus in bladder; R31.9 Hematuria, unspecified | CPT/HCPCS: 52000; 81003; 99212 ==

== ENCOUNTER 2024-07-12 06:08 | Outpatient (REF) | payer OTHER, SELFPAY ==
--- NOTE | ~2024-07-12 | FL_ITS ---
EXAMINATION: FLUORO GUIDANCE IN TREATMENT ROOM CLINICAL INFORMATION: Radiculopathy, lumbar region. COMPARISON: None available. TECHNIQUE: Fluoroscopy supervised by: Dr. Paxton Machuca. Fluoroscopy time: 0.3 minutes. Cumulative Dose: 9.49 mGy. DAP: 0.132 mGy-m2 (milligray-meter squared). Images: 3. FINDINGS: A needle is positioned just below the pedicle of a lumbar vertebral body on the left. Contrast is injected which appears to be in the epidural space. FL/FL guidance in treatment room IMPRESSION: Fluoroscopy during procedure. Please see procedure report for additional information. Electronically signed by: Kun Enciso MD 09/14/2024 02:12 PM REGINA
== END 2024-07-12 06:09 | disposition home or self-care (01) ==
LOC: CF 06:08
PROVIDERS: Visit Provider Anesthesiology
DX: M54.16 Radiculopathy, lumbar region (principal); M51.360 Other intervertebral disc degeneration, lumbar region with discogenic back pain only
CPT/HCPCS: 64483; J2003; J3301; Q9967

== ENCOUNTER 2024-07-12 08:40 | Outpatient (AMB) | payer OTHER, SELFPAY ==
[2024-07-12 11:10] VITALS: BP 137/70; PULSE 61; RESP 17; O2SAT 96; BMI 39.1
--- NOTE | 2024-07-12 11:10 | MHC.OFFVIS ---
Vital Signs 07/12/24 11:10 07/12/24 11:11 Height 5 ft 6 in 5 ft 6 in Weight 242 lb 242 lb BMI 39.1 39.1 BP 137/70 140/82 H Blood Pressure Location Lt brachial Lt brachial Position Sitting Sitting Respiration 17 17 Pulse 61 62 Pulse Source Pulse Oximeter Pulse Oximeter Pulse Oximetry (%) 96 96 Oxygen Delivery Method Room Air Room Air Comment pre-op post-op Intake Visit Reasons: LEFT L3, L4 TFESI Allergies Penicillins Allergy (Intermediate, Verified 07/12/24 11:12) RASH Carbapenems Allergy (Unknown, Verified 07/12/24 11:12) Unknown Cephalosporins Allergy (Unknown, Verified 07/12/24 11:12) Unknown enviormental Allergy (Severe, Uncoded 07/04/24 10:05) coughing and sneezing PFSH Medical History Spondylosis of lumbar region without myelopathy or radiculopathy Low back pain HTN (hypertension) Arthritis History of back pain History of fatty infiltration of liver Seasonal allergies Elevated cholesterol Asthma Anxiety Depression Diabetes mellitus History of COVID-19 Allergic rhinitis SHANON (obstructive sleep apnea) Obesity Smoker Surgical History Hx of ventral hernia repair Hx of colonoscopy History of left cataract extraction History of cystoscopy Hx of umbilical hernia repair Family History Mother No problems noted. Father No problems noted. Brother CAD (coronary artery disease) Sister Alzheimer disease Social History Are you a primary technical healthcare consultant to a significant other at home: No Do you presently have visiting nurse or other home services: Yes Alcohol intake: never Patient Tobacco Use Status: Former Tobacco user Cigarette Packs Per Day: 0.5 Cigarettes Per Day: 10.0 Years Smoked: 60 +/- , quit- Oct 12 2023 Physical Exam Vital Signs: Last Vital Signs Pulse 62 07/12/24 11:11 Resp 17 07/12/24 11:11 BP 140/82 H 07/12/24 11:11 Pulse Ox 96 07/12/24 11:11 Oxygen Delivery Method Room Air 07/12/24 11:11 BMI result Body Mass Index 39.1 Assessment & Plan Assessment & Plan (1) Lumbar radiculopathy: Code(s): M54.16 - Radiculopathy, lumbar region Category: Medical Plan: Left L3-L4 Transforaminal epidural steroid injection Informed consent was thoroughly explained to the patient before the procedure. The patient came to the operating room. She was positioned prone on operating table with a pillow under her abdomen. Time-out was performed delineating correct site and side of the procedure, nature of the injection, name and date of of the patient. The lower back of the patient was prepped with ChloraPrep and draped with sterile utility towels. C-arm was brought over the operating field and sq picture of L3 vertebra was demonstrated on the screen. The left side was chosen as the side of the injection. Tilting machine ipsilateral to the left at the level of L3 the most prominent picture of the pedicle on the right was demonstrated on the screen. 3 mm below the most lowest point of the pedicle projection to the skin small amount of lidocaine 1% was injected to anesthetize the skin. After that 5 in 22 gauge Quincke point needle was inserted through the skin wheal and was advanced toward the L3-L4 foramina on anterior posterior, lateral and oblique views intermittently. When the needle entered foramina on AP view. When tip of the needle entered foramina projection on AP view injection of the contrast was performed demonstrating epidural and perineural spread of the contrast. After that injection of the treatment medicine 3 cc of preservative-free lidocaine 1% mixed with Kenalog 20 mg was injected into the foramina. No intrathecal and no intravascular spread of the contrast was noted. The needle was removed . Upon completion of the procedure needle was removed and sterile Band-Aid was applied. Patient tolerated the procedure well. (2) Disc degeneration, lumbar: Code(s): M51.36 - Other intervertebral disc degeneration, lumbar region Category: Medical Plan Neurosurgical office recommended L3-L4 transforaminal epidural steroid injection on the left. I will schedule this patient for this procedure. However recently he had an x-ray done and on x-ray there were some moderate inflammation in the projection of the left hip joint. If the transforaminal epidural steroid injection will not be working I probably will perform intra-articular hip injection. The neurosurgical office did not find a reason to go for any other interventions. I will see this patient in 2 weeks after L3-L4 transforaminal epidural steroid injection. Orders: Orders FL guidance in treatment room Today M54.16 - Radiculopathy, lumbar region Coding Level of Care Code Procedure Only Diagnoses Lumbar radiculopathy M54.16 Disc degeneration, lumbar M51.36
[2024-07-12 11:11] VITALS: BP 140/82; PULSE 62; RESP 17; O2SAT 96; BMI 39.1
== END 2024-07-12 10:38 | disposition home or self-care (01) ==
LOC: HO.PMCPRC 08:40
PROVIDERS: PCP Family Medicine; Visit Provider Anesthesiology
DX: M54.16 Radiculopathy, lumbar region (principal); M51.369 Other intervertebral disc degeneration, lumbar region without mention of lumbar back pain or lower extremity pain
CPT/HCPCS: 64483

== ENCOUNTER 2024-07-20 09:50 | Outpatient (AMB) | payer OTHER, SELFPAY ==
--- NOTE | 2024-07-20 09:56 | A.OFFVIS_ITS ---
Vital Signs 07/20/24 10:00 Height 5 ft 6 in Weight 241 lb 4 oz BMI 38.9 BP 136/63 Blood Pressure Location Rt brachial Position Sitting Respiration 16 Pulse 63 Pulse Source Pulse Oximeter Pulse Oximetry (%) 97 Oxygen Delivery Method Room Air Intake Visit Reasons: LEFT L3, L4 TFESI/07/12/24 Intake Note: Patient comes in for post-op. Reports pain 3/10. Director Of Content And Programming Required: Yes Director Of Content And Programming Services: Director Of Content And Programming Offered & Declined Director Of Content And Programming Name: Daughter Alessia Allergies Penicillins Allergy (Intermediate, Verified 07/20/24 10:02) RASH Carbapenems Allergy (Unknown, Verified 07/20/24 10:02) Unknown Cephalosporins Allergy (Unknown, Verified 07/20/24 10:02) Unknown enviormental Allergy (Severe, Uncoded 07/04/24 10:05) coughing and sneezing HPI Comments Details: Mr. Piter Angel is in my office today after therapeutic transforaminal epidural steroid injection L3-L4 on the left. The procedure was performed on 07/12/2024. He reports excellent mobility excellent activities of daily living he reports today pain 3/10. He endorses ability to walk better his mobility improved. His pain before the procedure was 8/10. If this pain relief will last for up to 3 months we can repeat this procedure again. If this will be shorter than 5-6 weeks we would need to discuss other possibility of treating his pain with neuromodulation. Prior: he reports shock-like pain sensation in left more than right lower extremity. He was sent for MRI of the lumbar spine and results of the MRI dictated as below. I referred him for the consultation with neuro spine office and and they recommended to perform L3-L4 transforaminal epidural steroid injection for this patient on the left. Recently patient went for the hip x-ray. On the hip x-ray there was left hip with evidence of mild arthritis. If transforaminal epidural steroid injection will not work I will schedule him for intra-articular left hip injection. His most of the pain is the print in the projection of the iliotibial band. And although he relates this pain into his back the relation to the back pain is very vague. PFSH Medical History Spondylosis of lumbar region without myelopathy or radiculopathy Low back pain HTN (hypertension) Arthritis History of back pain History of fatty infiltration of liver Seasonal allergies Elevated cholesterol Asthma Anxiety Depression Diabetes mellitus History of COVID-19 Allergic rhinitis SHANON (obstructive sleep apnea) Obesity Smoker Surgical History Hx of ventral hernia repair Hx of colonoscopy History of left cataract extraction History of cystoscopy Hx of umbilical hernia repair Family History Mother No problems noted. Father No problems noted. Brother CAD (coronary artery disease) Sister Alzheimer disease Social History Are you a primary hospice care sales consultant to a significant other at home: No Do you presently have visiting nurse or other home services: Yes Alcohol intake: never Patient Tobacco Use Status: Former Tobacco user Cigarette Packs Per Day: 0.5 Cigarettes Per Day: 10.0 Years Smoked: 60 +/- , quit- Oct 12 2023 Review of Systems Const All systems reviewed & are unremarkable except as noted in HPI and below ENT Reports Normal hearing present Neuro Reports Normal hearing present Physical Exam Vital Signs: Last Vital Signs Pulse 63 07/20/24 10:00 Resp 16 07/20/24 10:00 BP 136/63 07/20/24 10:00 Pulse Ox 97 07/20/24 10:00 Oxygen Delivery Method Room Air 07/20/24 10:00 BMI result Body Mass Index 38.9 Const General: cooperative and no acute distress Orientation/consciousness: patient oriented x3 HEENT Other: left parietal head lump Neck Neck: Yes supple Resp Effort & Inspection: normal respiratory effort and able to speak in complete sentences Neuro General: patient oriented x3 and moves all extremities Cranial nerves: Yes Normal hearing present Cognition (Neuro): normal cognition Psych Appearance: grossly normal Mental Status: mental status grossly normal Assessment & Plan Assessment & Plan (1) Lumbar radiculopathy: Code(s): M54.16 - Radiculopathy, lumbar region Category: Medical (2) Disc degeneration, lumbar: Code(s): M51.36 - Other intervertebral disc degeneration, lumbar region Category: Medical Plan Very good results of the L3-L4 transforaminal epidural steroid injection. Mild hip arthritis could be also another contributor for his pain on the left. He is very happy with pain level today 3/10. He will give us a call when pain will return. We will decide what to do on depending on how long the pain relief will last. Neuromodulation could be offered to the patient. Hip arthritis could be injected for the patient. Coding Level of Care Code Est Pt Level 3 (00070) Diagnoses Lumbar radiculopathy M54.16 Disc degeneration, lumbar M51.36
[2024-07-20 10:00] VITALS: BP 136/63; PULSE 63; RESP 16; O2SAT 97; BMI 38.9
== END 2024-07-20 10:19 | disposition home or self-care (01) ==
PROVIDERS: PCP Family Medicine; Visit Provider Anesthesiology
DX: M54.16 Radiculopathy, lumbar region (principal); M51.369 Other intervertebral disc degeneration, lumbar region without mention of lumbar back pain or lower extremity pain
CPT/HCPCS: 99213

== ENCOUNTER → 2024-07-20 09:50 | Outpatient (BNVA) | payer OTHER, SELFPAY | PROVIDERS: PCP Family Medicine; Visit Provider Anesthesiology | DX: M54.16 Radiculopathy, lumbar region (principal); M51.360 Other intervertebral disc degeneration, lumbar region with discogenic back pain only | CPT/HCPCS: 99212 ==

== ENCOUNTER 2024-09-13 06:48 | Day surgery (SDC) | payer OTHER, SELFPAY ==
--- NOTE | 2024-09-12 09:17 | HO.ANESPROP2 ---
Documented by User: Laurie Otto NP 09/12/24 09:22 HPI - Anesthesia Eval Consult details Narrative: 78yo M for TUR Prostate,with bladder stone Lithotripsy, Litholapaxy Optimized per PCP [facility] Active Problems Active Problems: All Active Problems Hematuria (Acute) Right hip pain (Acute) Bladder calculus (Acute) Urinary frequency (Acute) BPH loc w urin obs/LUTS (Acute) Lumbar degenerative disc disease (Acute) Disc degeneration, lumbar (Acute) COPD (chronic obstructive pulmonary disease) (Acute) Leg cramps (Acute) Personal history of nicotine dependence (Acute) DAIGLE (dyspnea on exertion) (Acute) Lumbar spondylolysis (Acute) Memory difficulties (Acute) Rigidity (Acute) Tremor (Acute) Cervicalgia (Acute) Lumbar radiculopathy (Acute) Osteoarthritis of left knee (Acute) Osteoarthritis of right knee (Acute) Periodic limb movement disorder (PLMD) (Acute) Spondylosis of lumbar region without myelopathy or radiculopathy (Acute) Low back pain (Acute) HTN (hypertension) (Acute) Diabetes (Acute) Asthma (Acute) Dyslipidemia (Acute) Major depression, chronic (Acute) Anxiety (Acute) Chronic abdominal pain (Acute) Nephrolithiasis (Acute) Allergic rhinitis (Acute) BPH (benign prostatic hyperplasia) (Acute) Obstructive sleep apnea hypopnea, severe (Acute) Past Medical History Medical History Spondylosis of lumbar region without myelopathy or radiculopathy Low back pain HTN (hypertension) Arthritis History of back pain History of fatty infiltration of liver Seasonal allergies Elevated cholesterol Asthma Anxiety Depression Diabetes mellitus History of COVID-19 Allergic rhinitis SHANON (obstructive sleep apnea) Obesity Smoker Family History Family History Mother No problems noted. Father No problems noted. Brother CAD (coronary artery disease) Sister Alzheimer disease Surgical History Surgical History Hx of ventral hernia repair Hx of colonoscopy History of left cataract extraction History of cystoscopy Hx of umbilical hernia repair Social History Social History Are you a primary home care liaison to a significant other at home: No Do you presently have visiting nurse or other home services: Yes Alcohol intake: never Patient Tobacco Use Status: Former Tobacco user Cigarette Packs Per Day: 0.5 Cigarettes Per Day: 10.0 Years Smoked: 60 +/- , quit- Oct 12 2023 Use of substances other than those prescribed or required for medical reasons: No Are you DNR?: No Advance Directives: No Advance Directives Information Provided: Yes Meds Allergies Allergy/AdvReac Type Severity Reaction Status Date / Time Penicillins Allergy Intermediate RASH Verified 09/13/24 07:23 Carbapenems Allergy Unknown Unknown Verified 09/13/24 07:23 Cephalosporins Allergy Unknown Unknown Verified 09/13/24 07:23 enviormental Allergy Severe coughing Uncoded 07/04/24 10:05 and sneezing Home Medications ?Medication ?Instructions ?Recorded ?Confirmed ?Last Taken ?Type cholecalciferol (vitamin D3) 25 25 mcg PO DAILY 06/19/20 06/20/24 Unknown History mcg (1,000 unit) capsule diclofenac sodium 1 % topical gel 2 g topical QID 06/19/20 06/20/24 Unknown History (Voltaren) doxazosin 8 mg tablet 8 mg PO BEDTIME 06/19/20 06/20/24 Unknown History latanoprost 0.005 % eye drops 1 drp ophthalmic (eye) QPM 06/19/20 06/20/24 Unknown History loratadine 10 mg tablet (Allergy 10 mg PO DAILY 06/19/20 06/20/24 Unknown History Relief (loratadine)) atorvastatin 40 mg tablet 40 mg PO BEDTIME 01/28/23 06/20/24 Unknown History blood sugar diagnostic (OneTouch #10 ea 01/28/23 06/20/24 Unknown History Ultra Test strips) carvedilol 25 mg tablet 25 mg PO 01/28/23 06/20/24 Unknown History finasteride 5 mg tablet 5 mg PO QAM 01/28/23 06/20/24 Unknown History hydralazine 100 mg tablet 100 mg PO TID 01/28/23 06/20/24 Unknown History lancets #100 ea 01/28/23 06/20/24 Unknown History lisinopril 40 mg tablet 40 mg PO QPM 01/28/23 06/20/24 Unknown History metformin 500 mg tablet,extended 500 mg PO QPM 01/28/23 06/20/24 Unknown History release 24 hr mupirocin 2 % topical ointment topical TID 01/28/23 06/20/24 Unknown History sertraline 25 mg tablet 25 mg PO QAM 01/28/23 06/20/24 Unknown History cholecalciferol (vitamin D3) 25 25 mcg PO QAM 12/01/23 06/20/24 Unknown History mcg (1,000 unit) tablet Exam Height,Weight and Vital Signs: Weight 112 kg Pertinent Lab Results Pertinent Lab Results: Laboratory Tests 10/24/23 11/18/23 11:29 08:40 WBC 13.1 H Hgb 14.5 Hct 42.1 Plt Count 198 D Sodium 141 Potassium 4.4 D Chloride 106 Carbon Dioxide 29 BUN 15 Creatinine 0.77 Narrative Narrative: ECHO 2023 Conclusions: - Normal left ventricular size and systolic function. There is moderately increased left ventricular wall thickness. The visually estimated ejection fraction is between 60-65%. - Normal right ventricular cavity size and systolic function. - The left atrium is likely dilated. - There is mild dilatation of the ascending aorta measuring 4.00 cm. EKG 2023 Vent. Rate : 069 BPM Atrial Rate : 069 BPM P-R Int : 186 ms QRS Dur : 112 ms QT Int : 376 ms P-R-T Axes : 037 -51 095 degrees QTc Int : 402 ms Normal sinus rhythm Left anterior fascicular block Minimal voltage criteria for LVH, may be normal variant ( R in aVL ) Possible Anterior infarct , age undetermined Abnormal ECG When compared to the previous EKG of No significant changes seen Assessment and Plan Assessment Anesthesia Assessment: Chart Reviewed Documented by User: Shmuel Quinones MD 09/13/24 09:21 PMF Past Medical History Medical History Spondylosis of lumbar region without myelopathy or radiculopathy Low back pain HTN (hypertension) Arthritis History of back pain History of fatty infiltration of liver Seasonal allergies Elevated cholesterol Asthma Anxiety Depression Diabetes mellitus History of COVID-19 Allergic rhinitis SHANON (obstructive sleep apnea) Obesity Smoker Family History Family History Mother No problems noted. Father No problems noted. Brother CAD (coronary artery disease) Sister Alzheimer disease Family history of problems with anesthesia: No Surgical History Surgical History Hx of ventral hernia repair Hx of colonoscopy History of left cataract extraction History of cystoscopy Hx of umbilical hernia repair History of Problems with Anesthesia: No Social History Social History Are you a primary home care liaison to a significant other at home: No Do you presently have visiting nurse or other home services: Yes Alcohol intake: never Patient Tobacco Use Status: Former Tobacco user Cigarette Packs Per Day: 0.5 Cigarettes Per Day: 10.0 Years Smoked: 60 +/- , quit- Oct 12 2023 Use of substances other than those prescribed or required for medical reasons: No Are you DNR?: No Advance Directives: No Advance Directives Information Provided: Yes Meds Allergies Allergy/AdvReac Type Severity Reaction Status Date / Time Penicillins Allergy Intermediate RASH Verified 09/13/24 07:23 Carbapenems Allergy Unknown Unknown Verified 09/13/24 07:23 Cephalosporins Allergy Unknown Unknown Verified 09/13/24 07:23 enviormental Allergy Severe coughing Uncoded 07/04/24 10:05 and sneezing Home Medications ?Medication ?Instructions ?Recorded ?Confirmed ?Last Taken ?Type cholecalciferol (vitamin D3) 25 25 mcg PO DAILY 06/19/20 06/20/24 Unknown History mcg (1,000 unit) capsule diclofenac sodium 1 % topical gel 2 g topical QID 06/19/20 06/20/24 Unknown History (Voltaren) doxazosin 8 mg tablet 8 mg PO BEDTIME 06/19/20 06/20/24 Unknown History latanoprost 0.005 % eye drops 1 drp ophthalmic (eye) QPM 06/19/20 06/20/24 Unknown History loratadine 10 mg tablet (Allergy 10 mg PO DAILY 06/19/20 06/20/24 Unknown History Relief (loratadine)) atorvastatin 40 mg tablet 40 mg PO BEDTIME 01/28/23 06/20/24 Unknown History blood sugar diagnostic (OneTouch #10 ea 01/28/23 06/20/24 Unknown History Ultra Test strips) carvedilol 25 mg tablet 25 mg PO 01/28/23 06/20/24 Unknown History finasteride 5 mg tablet 5 mg PO QAM 01/28/23 06/20/24 Unknown History hydralazine 100 mg tablet 100 mg PO TID 01/28/23 06/20/24 Unknown History lancets #100 ea 01/28/23 06/20/24 Unknown History lisinopril 40 mg tablet 40 mg PO QPM 01/28/23 06/20/24 Unknown History metformin 500 mg tablet,extended 500 mg PO QPM 01/28/23 06/20/24 Unknown History release 24 hr mupirocin 2 % topical ointment topical TID 01/28/23 06/20/24 Unknown History sertraline 25 mg tablet 25 mg PO QAM 01/28/23 06/20/24 Unknown History cholecalciferol (vitamin D3) 25 25 mcg PO QAM 12/01/23 06/20/24 Unknown History mcg (1,000 unit) tablet Exam Airway Mallampati Class: II (large head, large neck, difficult DL, difficult mask ventil) TM Dist: <=3cm Neck ROM: Full Loose/Missing/Broken Teeth: No Heart: ok. Echo reviewed. Lungs: h/o COPD. Walks w a cane. Chest CTA w nl exp phase. Higher risk b/o morbid obesity, big belly. Assessment and Plan Assessment Anesthesia Assessment: Anesthesia Plan Discussed Final Anesthetic Review Family History of Problems with Anesthesia: No History of Problems with Anesthesia: No NPO: Yes ASA Class: III Final Preanesthetic Review: No Changes in Pt Med Stat, Meds/Allgs Chart Reviewed, Consent Obtained/Reviewed and Anes Risks/Benef Reviewed Patient Risk: High Procedure Risk: Low Anesthetic Plan Anesthetic Plan: GA and Agree w/ Assess. and Plan Disposition: Standard PACU
[2024-09-13] VITALS (20 sets, daily range): BP systolic 102–167; BP diastolic 48–83; PULSE 54–75; RESP 15–23; TEMP 36.1–37.2; O2SAT 93–97; BMI 38.7
--- OUTSIDE RECORDS SUMMARY | 2024-09-13 06:50 | XMS_ITS | Encounter Summary ---
Author Organization [facility] Address [address] [place] [address] Care Team Providers Care Zoo Director Name Role Phone Bridgette Gandhi MD Primary Care Provider [phone] Ramón Bolaños PharmD Unavailable [phone] Reason for Visit * Reason Comments Med Refill Encounter Details Date Type Department Care Team (Late st Contact Info) Description 10/22/2022 Refill [facility] [address] [place] [address] Tamela Drake MD [address] [place] [address] Dyslipidemia (Primary Dx) Social History Tobacco Use Types Packs/Day Years Used Date Smoking Tobacco: Never Smokeless Tobacco: Never Depression Answer Date Recorded Patient Health Questionnaire-9 Score 5 09/11/2022 Depression Answer Date Recorded Patient Health Questionnaire-2 Score 2 09/11/2022 Sex and Gender Information Value Date Recorded Sex Assigned at Male 06/16/2022 10:14 AM EDT Legal Sex Male 10:14 AM EDT Gender Identity Male 06/16/2022 10:14 AM EDT Sexual Orientation Choose not to disclose 2021 10:14 AM EDT COVID-19 Exposure Response Date Recorded In the last 10 days, have yo u been in contact with someone who was confirmed or suspected to have Coronavirus/COVID-19? No / Unsure 2022 8:49 AM EST documented as of this encounter Plan of Treatment Upcoming Encounters Date Type Department Care Team (Late st Contact Info) Description 11/01/2024 10:30 AM EDT Office Visit [facility] [address] [place] [address] Bridgette Gandhi MD [address] [place] [address] 01/06/2025 10:00 AM EDT Office Visit [facility] DENTAL [address], [place] [phone] Greg Macaris [address] [place] [address] documented as of this encounter Visit Diagnoses Diagnosis Dyslipidemia- Primary Other and unspecified hyperlipidemia documented in this encounter Additional Health Concerns Assessment Noted Time PHQ-9 Depression Total Score: 5 09/11/19 23 10:25 AM EST documented as of this encounter Care Teams Zoo Director Relationship Specialty Start Date End Date Bridgette Gandhi MD [address] [place] [id number] PCP - General Family Medicine 07/01/12 Ramón Bolaños, MollyD [address] [place] [address] [phone] Pharmacist Internal Medicine 11/18/23 documented as of this encounter
--- OUTSIDE RECORDS SUMMARY | 2024-09-13 06:51 | XMS_ITS | Encounter Summary ---
Author Organization [facility] Address [address] [place] [address] Care Team Providers Care Senior Director Name Role Phone Bridgette Gadnhi MD Primary Care Provider [phone] Ramón Bolaños PharmD Unavailable [phone] Encounter Details Date Type Department Care Team (Late st Contact Info) Description 08/22/2024 2:30 PM EST Office Visit [facility] [address], [place] [phone] Bridgette Gandhi MD [address], [place] [phone] Bladder stones (Primary Dx); Preop examination; Benign prostatic hyperplasia with lower urinary tract symptoms, symptom details unspecified; Controlled type 2 diabetes mellitus without complication, without long-term current use of insulin ([facility]); Hypertension, unspecified type; Obstructive sleep apnea syndrome; Moderate persistent asthma without complication; Chronic obstructive pulmonary disease, unspecified COPD type ([facility]/HCC) Social History Tobacco Use Types Packs/Day Years Used Date Smoking Tobacco: Former Cigarettes 0.5 63 Passive Smoke Exposure: Past Smokeless Tobacco: Never Comments:Cigarette smoking q uit date 10/12/2023 Alcohol Use Standard Drinks/Week Comments Not Currently 0 (1 standard drink = 0.6 oz pur e alcohol) Depression Answer Date Recorded Patient Health Questionnaire-9 Score 0 04/07/2024 Patient Health Questionnaire-9 Score 0 04/07/2024 Last PHQ-9: Questionnaire Data Not on file 0 04/07/2024 Housing Stability Answer Date Recorded What is your housing situation today? I have housing today, but I am worried about losing housing in the future 11/04/[address] you li ve. Do you have problems with any of the following? Pests such as bugs, ants, or mice;Mold 11/04/2023 Food Insecurity Answer Date Recorded Within the past 12 months, y ou worried that your food would run out before you got money to buy more: Never True 11/04/2023 Within the past 12 months,th e food you bought just didn't last and you didn't have enough money to get more: Never True Transportation Answer Date Recorded In the past 12 months, has l ack of transportation kept you from medical appts, meetings, work or from getting things needed for daily living? No 11/04/2023 Utilities Answer Date Recorded In the past 12 months, has t he electric, gas, oil or water company threatened to shut off services in your home? No 11/04/2023 Depression Answer Date Recorded Patient Health Questionnaire-2 Score 0 04/07/2024 Sex and Gender Information Value Date Recorded Sex Assigned at Male 06/16/2022 10:14 AM EDT Legal Sex Male 10:14 AM EDT Gender Identity Male 06/16/2022 10:14 AM EDT Sexual Orientation Choose not to disclose 2021 10:14 AM EDT documented as of this encounter Last Filed Vital Signs Vital Sign Reading Time Taken Comments Blood Pressure 150/78 08/22/2024 2:30 PM EST Pulse 70 08/22/2024 2:30 PM EST Temperature 35.8 ??C (96.4 ??F) 08/22/2024 2:30 PM ES T Respiratory Rate 19 08/22/2024 2:30 PM EST Oxygen Saturation 98% 08/22/2024 2:30 PM EST Inhaled Oxygen Concentration - - Weight 112 kg (246 lb 12.8 oz) 08/22/2024 2:30 P M EST Height - - Body Mass Index 39.83 05/31/2024 2:22 PM EDT documented in this encounter Progress Notes * Bridgette Gandhi MD - 08/22/2024 2:30 PM EST Subjective Bharathi Angel is a 78 y.o. male who has hypertension, diabetes mellitus type 2, asthma/COPD, SHANON, ureteral stones, and chronic back pain, and patient presents for preop. Background: Our last encounter was 08/04/2024. A1C 7%. Although his A1C had increased, he was feeling well overall. He was anticipating an urological procedure. Interval history: We received a request for preop. He is having TURP-bladder stone removal under general anesthesia. Today: Date of procedure: 09/13/2024 Pre-operative diagnosis: Ureteral stone, BPH with LUTS Procedure: TURP- bladder stone removal Provider(s): Dr. Ayala Anesthesia type: general The pt does not want his prostate cut during the surgery. If it needs to be done, it is okay, but it is not his preferred choice. He reports a little pain when urinating in the mornings but it is fine during the day. Pt has been in their usual state of health. No recent illness, fever, chest pain, or difficulty breathing. Pt has adequate support during preoperative period for preparation and post- operative period for recovery. Review of Systems Constitutional: Negative for activity change, appetite change and fever. Respiratory: Negative for shortness of breath. Cardiovascular: Negative for chest pain. Objective Vitals: 08/22/24 1430 BP: (!) 150/78 Pulse: 70 Resp: 19 Temp: 96.4 ??F (35.8 ??C) TempSrc: Temporal SpO2: 98% Weight: 246 lb 12.8 oz (112 kg) Physical Exam Constitutional: General: He is not in acute distress. Appearance: Normal appearance. He is not ill-appearing. HENT: Head: Normocephalic and atraumatic. Mouth/Throat: Mouth: Mucous membranes are moist. Eyes: Extraocular Movements: Extraocular movements intact. Pupils: Pupils are equal, round, and reactive to light. Cardiovascular: Rate and Rhythm: Normal rate and regular rhythm. Heart sounds: No murmur heard. Pulmonary: Effort: Pulmonary effort is normal. No respiratory distress. Breath sounds: Normal breath sounds. No wheezing or rhonchi. Skin: General: Skin is warm. Neurological: Mental Status: He is alert. Mental status is at baseline. Psychiatric: Mood and Affect: Mood normal. Results: Lab Results Component Value Date NA 141 11/18/2023 K 4.4 11/18/2023 CL 106 11/18/2023 CO2 29 11/18/2023 BUN 15 11/18/2023 CREATININE 0.77 11/18/2023 CRCLCALCPH 77.0 2023 EGFR >60 11/18/2023 GLUCOSE 98 11/18/2023 TOTALBILIRUB 0.6 11/18/2023 AST 20 11/18/2023 ALT 22 11/18/2023 TOTPROTEIN 7.5 11/18/2023 ALB 3.5 11/18/2023 ALP 83 11/18/2023 Lab Results Component Value Date TRIG 96 11/18/2023 CHOL 136 11/18/2023 LDLCHOLCAL 75 11/18/2023 HDL 42 11/18/2023 Lab Results Component Value Date HGBA1C 7.0 (A) 08/04/2024 MICROALBUR 12.0 11/18/2023 CREATUR 119.50 11/18/2023 MICROALBCREU 10.0 11/18/2023 Lab Results Component Value Date WBC 4.7 (L) 2023 HGB 15.3 2023 HCT 44.1 2023 PLT 122 (L) 2023 MCV 88.0 2023 Cardiac Risk History of ischemic heart disease: NO (history of myocardial infarction or a positive exercise test, current complaint of chest pain considered to be secondary to myocardial ischemia, use of nitrate therapy, or ECG with pathological Q waves): History of heart failure: NO History of cerebrovascular disease: NO Diabetes mellitus requiring treatment with insulin: NO Preoperative serum creatinine >2.0 mg/dL : NO Activity tolerance >4 METS: NO Bleeding Risk: Chronic anticoagulation: NO Daily aspirin: NO Blood clotting disorder: NO Pulmonary History: SHANON and asthma BMI > 40: NO Smoking History: Denies current. Quit smoking about 1 year ago. ETOH: None Substance Use: None Personal or family history of anesthesia reaction: NO PREOPERATIVE ASSESSMENT AND PLAN: - Provider considers procedure to be medium -Reviewed cardiac risk factors based on RCRI. Patient has 1 risk factors corresponding to 1.0% riskof a major cardiac event during surgery. - Patient may proceed with surgery and anesthesia without further risk stratification at this time - Pt will contact health center with questions or concerns Assessment/Plan Problem List Items Addressed This Visit Benign prostatic hyperplasia - following with [facility] - continue doxazosin and finasteride Diabetes mellitus type 2, controlled ([facility]) Dx 2013 -A1c 7.0% 08/04/24, patient has been receiving steroid injection and received prednisone for COPD exacerbation -Continue metformin ER 500 mg once daily. -Consider GLP-1 RA -Continue working of lifestyle modifications and SMBG. Last eye exam: Dr. Faulkner, recent visit per pt's report, will request a note Last foot exam: Jul 2024 Last microalbumin test: 11/18/23 UACR 10 Last lipid profile: 11/18/23 TC 136; TG 96; HDL 42; LDL 75 Last dental exam: up to date Follow up in 3-6 mo or sooner if any problem arises Relevant Orders Vitamin B12 (Cobalamin) and Folate Panel, Serum Lipid Panel with Reflex to Direct LDL Albumin, Random Urine W/Creatinine Comprehensive Metabolic Panel Hypertension -Goal BP <150/90 per JNC-8, < 130/80 per ACC/AHA guideline, acceptable goal < 140/85 -usually in acceptable range at home, often elevated in the clinic. Elevated BP today -Risk factor / associated condition: Tobacco use; Hx alcohol use d/o, poor adherence to CPAP. -Discussed about the importance of lifestyle modification, especially smoking cessation. -Continue doxazosin 4 mg daily. -Continue lisinopril 40 mg daily. -Continue torsemide 20mg daily -Continue hydralazine 50 mg bid. -Continue CPAP --Treatment Hx-- -Diltiazem 300 mg was discontinued due to leg swelling -Amlodipine and hydralazine were discontinued due to hypotension and edema. - Carvedilol was discontinued due to hypotension -furosemide was changed to torsemide -Previously on triamterene/hctz, which was discontinued due to pt's questionable adherence - comanaged with external relations director, cafe team member, lime burner, and pharmacist - 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, negative Obstructive sleep apnea syndrome -Last sleep study on 07/22/2018. Dx SHANON -Restarted auto-PAP in 2019 -Currently followed by [facility], last appointment in May 2023, auto-PAP 8-20 cm H2O -Continue current setting -Work on lifestyle modifications COPD (chronic obstructive pulmonary disease) ([facility]) - Last exacerbation due to Influenza B in September - October 2023, seen in ED twice, and received prednisone and azithromycin. - Mild bronchitic exacerbation in Jun 2024, treated with azithromycin. - Restarted seeing [facility] providers. Seen by Dr. Castillo on 06/20/24 - Continue umeclidinium - vilanterol (Anoro) - Continue albuterol HFA prn - Most recent PFT in 10/01/2018: Mild degree of restrictive pulmonary disorder, which may be due to obesity; No obstructive airway disease (but pt has SHANON) - Congratulated on smoking cessation effort and encouraged to remain non-smoker - 12/22/[address] lung RADS2 - follow recommendations by Dr. Castillo Bladder stones - Primary - following with [facility], last seen on 07/03/24 for cystoscopy - continue adequate hydration - scheduled for bladder stone removal with Dr. Ayala Other Visit Diagnoses Preop examination - pt will proceed to the surgery as scheduled without further risk stratification Moderate persistent asthma without complication Allergies Allergen Reactions Penicillins Rash Carbapenems Unknown Cephalosporins Unknown Current Outpatient Medications Medication Instructions acetaminophen (TYLENOL) 500 mg, Oral, Every 6 hours PRN albuterol 108 (90 Base) MCG/ACT inhaler 2 puffs, Inhalation, Every 6 hours PRN Anoro Ellipta 62.5-25 MCG/ACT aerosol powder 1 puff, Daily atorvastatin (Lipitor) 40 MG tablet TAKE 1 TABLET BY MOUTH AT BEDTIME Blood Glucose Monitoring Suppl (Blood Glucose Monitor System) w/Device kit Check sugar once daily and as needed carvedilol (Coreg) 25 MG tablet 0.5 tablets, 2 times daily cholecalciferol (Vitamin D-3) 25 MCG tablet TAKE 1 TABLET BY MOUTH EVERY MORNING clindamycin (CLEOCIN) 300 mg, Oral, 4 times daily cyclobenzaprine (Flexeril) 5 MG tablet TAKE 1 TABLET BY MOUTH EVERY 8 HOURS NEEDED FOR PAIN (PAIN SCALE 7-10) FOR 5 DAYS Deep [place] Nasal [place] 0.65 % nasal spray USE 1-2 SPRAYS IN EACH NOSTRIL EVERY 2 TO 3 HOURS NEEDEDFOR NASAL CONGESTION Diclofenac Sodium 1 % gel Apply to affected area twice a day doxazosin (CARDURA) 4 mg, Oral, Nightly finasteride (Proscar) 5 MG tablet TAKE 1 TABLET BY MOUTH EVERY MORNING fluticasone (Flonase) 50 MCG/ACT nasal spray INSTILL 1-2 SPRAYS IN EACH NOSTRIL ONCE DAILY IN THE MORNING hydrALAZINE (Apresoline) 50 MG tablet TAKE 1 TABLET BY MOUTH TWICE DAILY IN THE MORNING AND IN THE EVENING ipratropium (Atrovent) 0.03 % nasal spray Administer 2 sprays in each nostril at night Lancets (OneTouch Delica Plus [id number]) mis TEST BLOOD SUGAR TWICE DAILY latanoprost (Xalatan) 0.005 % ophthalmic solution INSTILL 1 DROP IN RIGHT EYE AT BEDTIME lidocaine (Lidoderm) 5 % patch APPLY 1 PATCH TOPICALLY TO SKIN, LEAVE ON FOR 12 HOURS AND OFF FOR 12 HOURS DIRECTED (APPLY TO MOST PAINFUL AREA) lisinopril 40 MG tablet TAKE 1 TABLET BY MOUTH EVERY EVENING loratadine (Claritin) 10 MG tablet TAKE 1 TABLET BY MOUTH EVERY DAY magnesium oxide (MAG-OX) 400 mg, Daily metFORMIN XR (Glucophage-XR) 500 MG 24 hr tablet TAKE 1 TABLET BY MOUTH EVERY EVENING WITH FOOD OneTouch Ultra Test test strip TEST BLOOD SUGAR TWICE DAILY sertraline (ZOLOFT) 25 mg, Every morning torsemide (DEMADEX) 20 mg, Every morning Follow-up: As scheduled or sooner if any problem arises. Scribe Attestation: IDoug, am serving as a scribe to document services personally performed by Bridgette Gandhi MD,based on the patient's response to questions by provider and provides statements to me. Physicians Attestation: Bridgette Mckoy, have reviewed the information by the scribe, Hardy Holguin, for accuracy and agree with its content. documented in this encounter Miscellaneous Notes * Assessment & Plan Note - Bridgette Gandhi MD - 08/25/2024 2:39 PM ESTAssociated Problem(s): Obstructive sleep apnea syndrome -Last sleep study on 07/22/2018. Dx SHANON -Restarted auto-PAP in 2019 -Currently followed by [facility], last appointment in May 2023, auto-PAP 8-20 cm H2O -Continue current setting -Work on lifestyle modifications * Assessment & Plan Note - Bridgette Gandhi MD - 08/25/2024 2:39 PM ESTAssociated Problem(s): COPD (chronic obstructive pulmonary disease) ([facility]) - Last exacerbation due to Influenza B in September - October 2023, seen in ED twice, and received prednisone and azithromycin. - Mild bronchitic exacerbation in Jun 2024, treated with azithromycin. - Restarted seeing [facility]. Seen by Dr. Castillo on 06/20/24 - Continue umeclidinium - vilanterol (Anoro) - Continue albuterol HFA prn - Most recent PFT in 10/01/2018: Mild degree of restrictive pulmonary disorder, which may be due to obesity; No obstructive airway disease (but pt has SHANON) - Congratulated on smoking cessation effort and encouraged to remain non-smoker - 12/22/[address] lung RADS2 - follow recommendations by Dr. Castillo * Assessment & Plan Note - Bridgette Gandhi MD - 08/25/2024 2:38 PM ESTAssociated Problem(s): Hypertension -Goal BP <150/90 per JNC-8, < 130/80 per ACC/AHA guideline, acceptable goal < 140/85 -usually in acceptable range at home, often elevated in the clinic. Elevated BP today -Risk factor / associated condition: Tobacco use; Hx alcohol use d/o, poor adherence to CPAP. -Discussed about the importance of lifestyle modification, especially smoking cessation. -Continue doxazosin 4 mg daily. -Continue lisinopril 40 mg daily. -Continue torsemide 20mg daily -Continue hydralazine 50 mg bid. -Continue CPAP --Treatment Hx-- -Diltiazem 300 mg was discontinued due to leg swelling -Amlodipine and hydralazine were discontinued due to hypotension and edema. - Carvedilol was discontinued due to hypotension -furosemide was changed to torsemide -Previously on triamterene/hctz, which was discontinued due to pt's questionable adherence - comanaged with external relations director, cafe team member, lime burner, and pharmacist - 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, negative * Assessment & Plan Note - Bridgette Gandhi MD - 08/25/2024 2:37 PM ESTAssociated Problem(s): Diabetes mellitus type 2, controlled ([facility]) Dx 2013 -A1c 7.0% 08/04/24, patient has been receiving steroid injection and received prednisone for COPD exacerbation -Continue metformin ER 500 mg once daily. -Consider GLP-1 RA -Continue working of lifestyle modifications and SMBG. Last eye exam: Dr. Faulkner, recent visit per pt's report, will request a note Last foot exam: Jul 2024 Last microalbumin test: 11/18/23 UACR 10 Last lipid profile: 11/18/23 TC 136; TG 96; HDL 42; LDL 75 Last dental exam: up to date Follow up in 3-6 mo or sooner if any problem arises * Assessment & Plan Note - Bridgette Gandhi MD - 08/25/2024 2:37 PM ESTAssociated Problem(s): Benign prostatic hyperplasia - following with [facility] - continue doxazosin and finasteride * Assessment & Plan Note - Bridgette Gandhi MD - 08/25/2024 2:37 PM ESTAssociated Problem(s): Bladder stones - following with [facility], last seen on 07/03/24 for cystoscopy - continue adequate hydration - scheduled for bladder stone removal with Dr. Ayala documented in this encounter Plan of Treatment Upcoming Encounters Date Type Department Care Team (Late st Contact Info) Description 11/01/2024 10:30 AM EDT Office Visit [facility] [address] [place] [id number] Bridgette Gandhi MD [address], [place] [phone] 01/06/2025 10:00 AM EDT Office Visit [facility] [address], [place] [phone] Greg Macaris [address] [place] [address] Scheduled Orders Name Type Priority Associated Diagnoses Orde r Schedule Vitamin B12 (Cobalamin) and Folate Panel, Serum Lab Routine Controlled type 2 diabetes mellitus without complication, without long-term current use of insulin ([facility]) Expected: 08/25/2024 (Approximate), Expires: 08/25/2025 Lipid Panel with Reflex to Direct LDL Lab Routine Controlled type 2 diabetes mellitus without complication, without long-term current use of insulin (CMS/HCC) Expected: 08/25/2024 (Approximate), Expires: 08/25/2025 Albumin, Random Urine W/Creatinine Lab Routine Controlled type 2 diabetes mellitus without complication, without long-term current use of insulin (CMS/HCC) Expected: 08/25/2024 (Approximate), Expires: 08/25/2025 Comprehensive Metabolic Panel Lab Routine Controlled type 2 diabetes mellitus without complication, without long-term current use of insulin (CMS/HCC) Expected: 08/25/2024 (Approximate), Expires: 08/25/2025 documented as of this encounter Goals Goal Patient Goal Type Associated Problems Recent Progress Patient-Stated? Author Blood Pressure < 140/90 Blood Pressure 130/60(2024 10:46 AM EST) No Ramón Bolaños, PharmJameson Hemoglobin A1c < 7 Result Component 7(08/04/2024 11:32 AM EST) No Ramón Bolaños, Bradley documented as of this encounter Visit Diagnoses Diagnosis Bladder stones- Primary Other calculus in bladder Preop examination Unspecified pre-operative examination Benign prostatic hyperplasia with lower urinary tract symptoms, symptom details unspecified Controlled type 2 diabetes mellitus without complication, without long-term current use of insulin (CMS/HCC) Hypertension, unspecified type Obstructive sleep apnea syndrome Obstructive sleep apnea (adult) (pediatric) Moderate persistent asthma without complication Chronic obstructive pulmonary disease, unspecified COPD type (CMS/HCC) documented in this encounter Additional Health Concerns Assessment Noted Time PHQ-9 Depression Total Score: 0 04/07/20 24 11:45 AM EDT documented as of this encounter Care Teams Senior Director Relationship Specialty Start Date End Date Bridgette Gandhi MD [address] [place] [phone] PCP - General Family Medicine 07/01/12 Ramón Bolaños, MollyD [address] [place] [address] Pharmacist Internal Medicine 11/18/23 documented as of this encounter
--- OUTSIDE RECORDS SUMMARY | 2024-09-13 06:51 | XMS_ITS | Clinical Summary ---
Author Organization [employer] Address [address] [facility] [address] [place] [address] Care Team Providers Care Maxillofacial Pathology Name Role Phone Bridgette Fagan MD Primary Care Provider [phone] Ramón Bolaños PharmD Unavailable [phone] Allergies Active Allergy Reactions Criticality Noted Date Comments Carbapenems Unknown 2023 Cephalosporins Unknown 2023 Penicillins Rash High 2023 Medications carvedilol (Coreg) 25 MG tablet Take 0.5 tablets by mouth 2 times daily. 08/07/20 22 Active latanoprost (Xalatan) 0.005 % ophthalmic solution INSTILL 1 DROP IN RIGHT EYE AT BEDTIME 07/16/20 22 Active albuterol 108 (90 Base) MCG/ACT inhaler Inhale 2 puffs every 6 (six) hours if needed for wheezing or shortness of breath. 18 g 3 11/11/19 23 Active sertraline (Zoloft) 25 MG tablet Take 25 mg by mouth in the morning. 01/02/20 23 Active ipratropium (Atrovent) 0.03 % nasal spray Administer 2 sprays in each nostril at night 30 mL 12 04/27/20 23 Active Deep Sea Nasal Magna 0.65 % nasal spray USE 1-2 SPRAYS IN EACH NOSTRIL EVERY 2 TO 3 HOURS NEEDED FOR NASAL CONGESTION 30 mL 1 04/27/20 23 Active Diclofenac Sodium 1 % gelIndications:S delroy stenosis of lumbar region with neurogenic claudication Apply to affected area twice a day 100 g 09/17/19 24 Active atorvastatin (Lipitor) 40 MG tabletIndication s:Dyslipidemia TAKE 1 TABLET BY MOUTH AT BEDTIME 30 tablet 11 09/30/19 24 Active loratadine (Claritin) 10 MG tablet TAKE 1 TABLET BY MOUTH EVERY DAY 30 tablet 11/04/19 24 Active torsemide (Demadex) 20 MG tablet Take 20 mg by mouth in the morning. 10/28/19 24 Active Anoro Ellipta 62.5-25 MCG/ACT aerosol powder Inhale 1 puff in the morning. 10/28/19 24 Active doxazosin (Cardura) 8 MG tablet Take 0.5 tablets (4 mg) by mouth at bedtime. 30 tablet 11/04/19 24 Active lisinopril 40 MG tablet TAKE 1 TABLET BY MOUTH EVERY EVENING 90 tablet 3 12/01/19 24 Active OneTouch Ultra Test test strip TEST BLOOD SUGAR TWICE DAILY 50 strip 11 12/07/19 24 Active metFORMIN XR (Glucophage-XR) 500 MG 24 hr tablet TAKE 1 TABLET BY MOUTH EVERY EVENING WITH FOOD 30 tablet 12/10/19 24 Active magnesium oxide (Mag-Ox) 400 (240 Mg) MG tablet Take 400 mg by mouth Once per day. At bedtime. (Hold if loose stool occurs) 12/02/19 24 Active finasteride (Proscar) 5 MG tablet TAKE 1 TABLET BY MOUTH EVERY MORNING 90 tablet 3 02/08/20 24 Active cholecalciferol (Vitamin D-3) 25 MCG tablet TAKE 1 TABLET BY MOUTH EVERY MORNING 90 tablet 3 02/08/20 24 Active Lancets (OneTouch Delica Plus [id number]) miscIndications: Type 2 diabetes mellitus without complications (CMS/HCC) TEST BLOOD SUGAR TWICE DAILY 100 each 11 04/22/20 24 Active cyclobenzaprine (Flexeril) 5 MG tablet TAKE 1 TABLET BY MOUTH EVERY 8 HOURS NEEDED FOR PAIN (PAIN SCALE 7-10) FOR 5 DAYS 05/25/20 24 Active lidocaine (Lidoderm) 5 % patch APPLY 1 PATCH TOPICALLY TO SKIN, LEAVE ON FOR 12 HOURS AND OFF FOR 12 HOURS DIRECTED (APPLY TO MOST PAINFUL AREA) 05/25/20 24 Active Blood Glucose Monitoring Suppl (Blood Glucose Monitor System) w/Device kit Check sugar once daily and as needed 1 kit 06/24/20 24 Active hydrALAZINE (Apresoline) 50 MG tablet TAKE 1 TABLET BY MOUTH TWICE DAILY IN THE MORNING AND IN THE EVENING 06/30/20 Active fluticasone (Flonase) 50 MCG/ACT nasal spray INSTILL 1-2 SPRAYS IN EACH NOSTRIL ONCE DAILY IN THE MORNING 16 g 2 08/19/19 25 Active acetaminophen (Tylenol) 500 MG tablet Take 1 tablet (500 mg) by mouth every 6 (six) hours if needed for mild pain for up to 20 doses. 20 tablet 08/24/19 25 Active acetaminophen (Tylenol) 325 MG tablet Patient reports purchasing OTC 025 Discontinued fluticasone (Flonase) 50 MCG/ACT nasal spray INSTILL 1-2 SPRAYS IN EACH NOSTRIL ONCE DAILY IN THE MORNING 16 g 2 04/22/20 24 025 Discontinued clindamycin (Cleocin) 300 MG capsule Take 1 capsule (300 mg) by mouth 4 times daily for 7 days. 28 capsule 08/24/19 25 025 Active Problems Problem Noted Date Diagnosed Date Odontalgia 08/24/2024 Lower urinary tract symptoms (LUTS) 08/04/2024 Bladder stones 08/04/2024 Assessment & Plan (08/25/2024 2:37 PM EST): - following with [facility] urology, last seen on 07/03/24 for cystoscopy - continue adequate hydration - scheduled for bladder stone removal with Dr. Ayala Assessment & Plan (08/11/2024 6:19 AM EST): - following with [facility] urology, last seen on 07/03/24 for cystoscopy -recommended adequate hydration and following plan per urologist Fractured dental alevism with loss of materi al 08/01/2024 Caries of cervical margin of tooth 07/08/2024 Dental plaque 07/08/2024 Staining (discoloration) of teeth 07/08/2024 Bilateral primary osteoarthritis of hip 06/03/20 Assessment & Plan (06/03/2024 1:39 PM EDT): Will trial Oxycodone 5mg at nighttime for pain, hold Flexeril Call pain mgmt for patient and attempt to schedule injections History of renal calculi 01/27/2024 Hyperlipidemia 01/27/2024 Nocturia 01/04/2024 Assessment & Plan (01/04/2024 6:34 PM EDT): - Check PSA - hx of BPH and patient was seen by urologist, last appointment in 2017 - Patient is taking Torsemide in the morning - Will refer to Urology for further evaluation, if patient has elevated PSA Ascending aorta dilation 01/04/2024 Assessment & Plan (04/07/2024 11:49 AM EDT): - 11/26/23 Echo showed mild dilatation of the ascending aorta measuring 4.00 cm - Followed by Making Machine Operator, monitor with echo every 6-12 months - Continue BP management Assessment & Plan (01/04/2024 11:35 AM EDT): - 11/26/23 Echo showed mild dilatation of the ascending aorta measuring 4.00 cm - Followed by Making Machine [employer], monitor with echo every 6-12 months - Continue BP management Periodic limb movement disorder (PLMD) Assessment & Plan (08/11/2024 6:06 AM EST): - Noted on his last sleep study - Seeing a neurologist; it has affected his sleep quality. His family requests a second opinion. Will refer to neurology or geriatric consult. Osteoarthritis of right knee 11/18/2023 Major depression, chronic 11/18/2023 Memory difficulties 11/18/2023 Assessment & Plan (08/11/2024 6:24 AM EST): - currently diagnosed with early Alzheimer's dementia and tried donepezil. Intolerance to its side effect. - family's concern is more of his motor symptoms; will refer to neurology Orthostatic hypotension 11/04/2023 Assessment & Plan (01/04/2024 11:14 AM EDT): - close monitoring due to multiple prescribers - 24-hour BP monitoring requested to nephrology service Assessment & Plan (11/04/2023 12:57 PM EDT): - close monitoring due to multiple prescribers - 24-hour BP monitoring requested to nephrology service Bilateral hip pain 09/17/2023 Assessment & Plan (09/17/2023 11:17 AM EST): Pt of Dr. Fagan with PMhx significant for spinal stenosis, chronic low back pain and Hx of throcanteric bursitis. Here with c/o bilateral hip pain L>R walking with a limp Exam: full ROM both hips, pain over trocanteric region, seen by Ortho recently who recommended pt be evaluated by pain management instead. Pt interested in injections Plan: Continue use of Diclofenac gel, Tylenol Plain films both hips and pelvis Follow up with PCP after initial testing Dental calculus 06/24/2023 Periodontal disease 06/24/2023 Localized gingival recession, minimal 06/24/2023 Tremor 05/11/2023 Assessment & Plan (08/11/2024 6:22 AM EST): - followed by neurology clinic, last seen in May 2024 - MRI head in Mar 2023 did not reveal any attributable cause - refer to second opinion as requested Assessment & Plan (01/04/2024 11:26 AM EDT): - followed by neurology clinic, last seen in November 2023 - MRI head in Mar 2023 did not reveal any attributable cause - monitor at this time Assessment & Plan (11/04/2023 12:56 PM EDT): - followed by neurology clinic, last seen in May 2023 - MRI head in Mar 2023 did not reveal any attributable cause - monitor at this time - ?Parkinson's Assessment & Plan (08/13/2023 5:01 AM EST): - followed by neurology clinic, last seen in May 2023 - MRI head in Mar 2023 did not reveal any attributable cause - monitor at this time Assessment & Plan (05/11/2023 8:35 AM EDT): - seen by neurologist - MRI head done - follow up with neurologist Trochanteric bursitis of left hip 03/31/2023 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 Garces of neurology on 12/17/2022 initially for tremor witnessed in our office however it was not seen on exam with Dr. Garces. He is diagnosed with Alzheimer's dementia and was felt to have depression with anxiety. He was started on sertraline but developed a headache at home and the family has reduced his dose in half. So far he is tolerating it. The patient however does not feel he is depressed and says that he is only anxious in social situations when he is uncomfortable. They will discuss this further with Dr. Garces at his 3-month follow-up. Assessment & Plan (08/11/2024 6:10 AM EST): - following with neurology - previously tried Donepezil for Alzheimer's dementia, no longer taking Chronic pain of both knees 01/21/2023 Assessment & Plan (01/21/2023 11:16 AM EDT): Seen by Orthopedist -received a steroid injection in 10/2022 -continue current pain management plan Scalp lesion 2022 Assessment & Plan (2022 9:53 AM EST): Appears to be due to friction from CPAP Machine Mask -Pt has been followed by [facility], will request evaluation from SLeep Medicine Provider and see if pt needs imaging study -Recommended to avoid irritation -Will Rx topical Abx for irritated area Venous insufficiency 2022 Assessment & Plan (11/04/2023 12:40 PM EDT): -Seen by [facility] provider in Apr 2021. Recommended to continue conservative management of compression stocking, DASH diet, and leg elevation. Discontinued Diltiazem due to possible side effects. -possible venous ablation -06/02/23 venous study showed b/l venous insufficiency. -recommended to discuss with his supervisor sewing department and vascular specialist at [facility] for other treatment options, if appropriate -discontinued amlodipine and hydralazine recently - continue torsemide Assessment & Plan (08/14/2023 11:15 AM EST): -Seen by [facility] provider in Apr 2021. Recommended to continue conservative management of compression stocking, DASH diet, and leg elevation. Discontinued Diltiazem due to possible side effects. -possible venous ablation -06/02/23 venous study showed b/l venous insufficiency. -recommended to discuss with his supervisor sewing department and vascular specialist at [facility] for other treatment options, if appropriate Assessment & Plan (05/11/2023 8:29 AM EDT): -Seen by [facility] provider in Apr 2021. Recommended to continue conservative management of compression stocking, DASH diet, and leg elevation. Discontinued Diltiazem due to possible side effects. -possible venous ablation -schedule venous study Assessment & Plan (2022 9:36 AM EST): -Seen by [facility] provider in Apr 2021. Recommended to continue conservative management of compression stocking, DASH diet, and leg elevation. Discontinued Diltiazem due to possible side effects. -possible venous ablation Lumbar radiculopathy 2022 Assessment & Plan (08/11/2024 6:12 AM EST): -Continue Tylenol prn -Following with Pain management, last seen in Jul 2024 after receiving TFESI with good response -Evaluated by neurosurgery, recommended TFESI. -Previously tried PT; declines further PT -MRI on 09/29/22 showing spinal stenosis with compression of the Exiting right L5 nerve root. -Continue APAP and diclofenac topical Assessment & Plan (08/13/2023 4:59 AM EST): X-ray showed DDD -Continue Tylenol prn -Following with Pain management; declines further injection treatment -Previously tried PT; declines further PT -MRI on 09/29/22 showing spinal stenosis with compression of the Exiting right L5 nerve root. -Continue APAP and diclofenac topical Degenerative disc disease, lumbar 09/24/2022 Assessment & Plan (01/04/2024 11:26 AM EDT): 05/26/18 X-ray showed DDD -Continue Tylenol prn -Following with Pain management; declines further injection treatment -Previously tried PT; declines further PT -MRI on 09/29/22 showing spinal stenosis with compression of the Exiting right L5 nerve root. - MRI 11/07 showed similar results. Will contact pain management office for next appointment Assessment & Plan (08/13/2023 4:59 AM EST): 05/26/18 X-ray showed DDD -Continue Tylenol prn -Following with Pain management; declines further injection treatment -Previously tried PT; declines further PT -MRI on 09/29/22 showing spinal stenosis with compression of the Exiting right L5 nerve root. Assessment & Plan (07/07/2023 2:15 PM EST): Pt here with c/o acute on chronic low back pain On exam there is tenderness and evidence of muscle spasm. Lower legs, no swelling, neg hommans , no evidence of infection, nothing to suggest DVT. Exam suggestive of acute on chronic low back pain with radiation to both lower extremities 05/26/18 X-ray showed DDD MRI on 09/29/22 showing spinal stenosis with compression of the Exiting right L5 nerve root. Currently using Tylenol prn Seen by Pain management; declined further injection treatment Previously tried PT; declined further PT Plan: Will add Diclofenac gel to apply to affected area BID, follow up with PCP in 4 weeks Assessment & Plan (2022 9:51 AM EST): 05/26/18 X-ray showed DDD -Continue Tylenol prn -Following with Pain management; declines further injection treatment -Previously tried PT; declines further PT -MRI on 09/29/22 showing spinal stenosis with compression of the Exiting right L5 nerve root. Assessment & Plan (10/04/2022 4:14 PM EST): 05/26/18 X-ray showed DDD -Continue Tylenol prn -Following with Pain management; declines further injection treatment -Previously tried PT; declines further PT Anxiety 09/11/2022 Chronic recurrent major depressive disorder 06/17 Assessment & Plan (04/07/2024 11:50 AM EDT): - clarified indication of sertraline - pt states he is adherent to sertraline - pt acknowledges depressive symptoms affecting pt's cognition - pt was able to contract his safety today Assessment & Plan (08/13/2023 5:03 AM EST): - clarified indication of sertraline - pt states he is adherent to sertraline - pt acknowledges depressive symptoms affecting pt's cognition - pt was able to contract his safety today Assessment & Plan (02/01/2023 7:06 PM EDT): - clarified indication of sertraline - pt states he is adherent to sertraline - pt acknowledges depressive symptoms affecting pt's cognition - pt was able to contract his safety today Dyslipidemia 06/26/2015 Assessment & Plan (04/07/2024 11:52 AM EDT): - Current medication: atorvastatin 40 mg qhs - Lab: 11/18/23 TC 136; TG 96; HDL 42; LDL 75 - According to ACC/AHA guideline, 10-year ASCVD risk is >30 % and high-intensity statin therapy is recommended. He is currently on Lipitor 40 mg qhs. Will continue with current medication at this time and reassess if we need to intensify treatment after next lipid profile. Emphasized the importance of lifestyle modification. Assessment & Plan (11/04/2023 12:56 PM EDT): Current medication: atorvastatin 40 mg qhs Lab: 04/27/23 TC 177; TG 113; HDL 44; LDL 53 According to ACC/AHA guideline, 10-year ASCVD risk is >30 % and high-intensity statin therapy is recommended. He is currently on Lipitor 40 mg qhs. Will continue with current medication at this time and reassess if we need to intensify treatment after next lipid profile. Emphasized the importance of lifestyle modification. Assessment & Plan (08/13/2023 5:03 AM EST): Current medication: atorvastatin 40 mg qhs Lab: 04/27/23 TC 177; TG 113; HDL 44; LDL 53 According to ACC/AHA guideline, 10-year ASCVD risk is >30 % and high-intensity statin therapy is recommended. He is currently on Lipitor 40 mg qhs. Will continue with current medication at this time and reassess if we need to intensify treatment after next lipid profile. Emphasized the importance of lifestyle modification. Assessment & Plan (02/01/2023 7:06 PM EDT): Current medication: atorvastatin 40 mg qhs Lab: 01/10/22 UACR 20; TC 123; TG 91; LDL 65; HDL 41 According to ACC/AHA guideline, 10-year ASCVD risk is >30 % and high-intensity statin therapy is recommended. He is currently on Lipitor 40 mg qhs. Will continue with current medication at this time and reassess if we need to intensify treatment after next lipid profile. Emphasized the importance of lifestyle modification. Assessment & Plan (10/04/2022 4:15 PM EST): Current medication: atorvastatin 40 mg qhs Lab: 01/10/22 UACR 20; TC 123; TG 91; LDL 65; HDL 41 According to ACC/AHA guideline, 10-year ASCVD risk is >30 % and high-intensity statin therapy is recommended. He is currently on Lipitor 40 mg qhs. Will continue with current medication at this time and reassess if we need to intensify treatment after next lipid profile. Emphasized the importance of lifestyle modification. Hypertension 06/26/2015 Assessment & Plan (08/25/2024 2:38 PM EST): -Goal BP <150/90 per JNC-8, < 130/80 [...] to pt's questionable adherence - comanaged with supervisor sewing department, power wheelchair mechanic, retail sales associate seasonal, and pharmacist - 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, negative Assessment & Plan (08/11/2024 6:18 AM EST): -Goal BP <150/90 per JNC-8, < 130/80 [...] to pt's questionable adherence - comanaged with supervisor sewing department, power wheelchair mechanic, retail sales associate seasonal, and pharmacist - 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, negative Assessment & Plan (04/11/2024 6:15 AM EDT): -Goal BP <150/90 per JNC-8, < 130/80 [...] daily. -Continue lisinopril 40 mg daily. -Continue Furosemide 20mg daily -Continue CPAP --Treatment Hx-- -Diltiazem 300 mg was discontinued due to leg swelling -Amlodipine and hydralazine were discontinued due to hypotension and edema. - Carvedilol was discontinued due to hypotension -furosemide was changed to torsemide -Previously on triamterene/hctz, which was discontinued due to pt's questionable adherence - comanaged with supervisor sewing department, power wheelchair mechanic, and pharmacist - check primary aldosteronism; may benefit from MRA - request 24-hour BP monitoring Follow up in 2 mo or sooner if ant problem arises Assessment & Plan (01/04/2024 11:14 AM EDT): -Goal BP <150/90 per JNC-8, < 130/80 per ACC/AHA guideline, acceptable goal < 140/85 -usually in acceptable range at home, often elevated in the clinic. Normal BP today -Risk factor / associated condition: Tobacco use; Hx alcohol use d/o, poor adherence to CPAP. -Discussed about the importance of lifestyle modification, especially smoking cessation. -Continue doxazosin 4 mg daily. -Continue lisinopril 40 mg daily. -Continue Carvedilol 12.5mg BID -Continue Furosemide 20mg daily -Continue CPAP --Treatment Hx-- -Diltiazem 300 mg was discontinued due to leg swelling -Amlodipine and hydralazine were discontinued due to hypotension and edema. - Carvedilol dosage was decreased from 25 mg to 12.5 mg due to hypotension -furosemide was changed to torsemide -Previously on triamterene/hctz, which was discontinued due to pt's questionable adherence - comanaged with supervisor sewing department, power wheelchair mechanic, and pharmacist - check primary aldosteronism; may benefit from MRA - request 24-hour BP monitoring - refer to neurologist for Parkinson's disease evaluation (tremor and orthostatic hypotension) Follow up in 2 mo or sooner if ant problem arises Assessment & Plan (11/04/2023 12:54 PM EDT): -Goal BP <150/90 per JNC-8, < 130/80 per ACC/AHA guideline, acceptable goal < 140/85 -usually in acceptable range at home, often elevated in the clinic. Normal BP today -Risk factor / associated condition: Tobacco use; Hx alcohol use d/o, poor adherence to CPAP. -Discussed about the importance of lifestyle modification, especially smoking cessation. -Decrease doxazosin to 4 mg daily. -Continue lisinopril 40 mg daily. -Continue Carvedilol 25mg BID -Continue Furosemide 20mg daily -Continue CPAP --Treatment Hx-- -Diltiazem 300 mg was discontinued due to leg swelling -Amlodipine and hydralazine were discontinued due to hypotension and edema. -furosemide was changed to torsemide -Previously on triamterene/hctz, which was discontinued due to pt's questionable adherence - comanaged with supervisor sewing department, power wheelchair mechanic, and pharmacist - check primary aldosteronism; may benefit from MRA - request 24-hour BP monitoring - refer to neurologist for Parkinson's disease evaluation (tremor and orthostatic hypotension) Follow up in 2 mo or sooner if ant problem arises Assessment & Plan (08/14/2023 11:19 AM EST): -Goal BP <150/90 per JNC-8, < 130/80 per ACC/AHA guideline, acceptable goal < 140/85 -usually in acceptable range at home, often elevated in the clinic. Normal BP today -Risk factor / associated condition: Tobacco use; Hx alcohol use d/o, poor adherence to CPAP. -Discussed about the importance of lifestyle modification, especially smoking cessation. -Continue doxazosin 8 mg daily. -Continue lisinopril 40 mg daily. -Continue Carvedilol 25mg BID -Continue hydralazine 100 mg TID -Continue Furosemide 20mg daily -Continue Amlodipine to 5mg daily -Continue CPAP --Treatment Hx-- -Diltiazem 300 mg was discontinued due to leg swelling -Amlodipine was supposed to be discontinued due to leg edema; currently at lower dose. -Previously on triamterene/hctz, which was discontinued due to pt's questionable adherence - comanaged with supervisor sewing department, retail sales associate seasonal, and pharmacist -?24-hr ambulatory BP monitor result -check primary aldosteronism; may benefit from MRA Follow up in 3 mo or sooner if ant problem arises Assessment & Plan (05/11/2023 8:28 AM EDT): Goal BP <140/90 per JNC-8, < 130/80 per ACC/AHA guideline usually in acceptable range at home, often elevated in the clinic. Normal BP today -Risk factor / associated condition: Tobacco use; Hx alcohol use d/o, poor adherence to CPAP. -Discussed about the importance of lifestyle modification, especially smoking cessation. -Continue doxazosin 8 mg daily. -Continue lisinopril 40 mg daily. -Continue Carvedilol 25mg BID -Continue hydralazine 100 mg TID -Continue Furosemide 20mg daily -Continue Amlodipine to 5mg daily --Treatment Hx-- -Diltiazem 300 mg was discontinued due to leg swelling -Amlodipine was supposed to be discontinued due to leg edema; currently at lower dose. 12/09/22 MTM visit with our pharmacist. BP at goal. PCV20 and Shingrix scheduled. -Will consider SGLT-2 inhibitor for DM2, which may improve his BP. -Seen by Nephrology on 03/05/20 -Requested Dr. Long for 24-hour BP monitoring, will check its status -Previously on triamterene/hctz, which was discontinued due to pt's questionable adherence -Continue using CPAP Follow up in 3-6 mo or sooner if ant problem arises Assessment & Plan (02/01/2023 7:00 PM EDT): Goal BP <140/90 per JNC-8, < 130/80 per ACC/AHA guideline usually in acceptable range at home, often elevated in the clinic. Normal BP today -Risk factor / associated condition: Tobacco use; Hx alcohol use d/o, poor adherence to CPAP. -Discussed about the importance of lifestyle modification, especially smoking cessation. -Continue doxazosin 8 mg daily. -Continue lisinopril 40 mg daily. -Continue Carvedilol 25mg BID -Continue hydralazine 100 mg TID -Continue Furosemide 20mg daily -Continue Amlodipine to 5mg daily --Treatment Hx-- -Diltiazem 300 mg was discontinued due to leg swelling -Amlodipine was supposed to be discontinued due to leg edema; currently at lower dose. 12/09/22 MTM visit with our pharmacist. BP at goal. PCV20 and Shingrix scheduled. -Will consider SGLT-2 inhibitor for DM2, which may improve his BP. -Seen by Nephrology on 03/05/20 -Requested Dr. Long for 24-hour BP monitoring, will check its status -Previously on triamterene/hctz, which was discontinued due to pt's questionable adherence -Continue using CPAP Assessment & Plan (2022 9:54 AM EST): Goal BP <140/90 per JNC-8, < 130/80 per ACC/AHA guideline -BP elevated today, usually in acceptable range -Risk factor / associated condition: Tobacco use; Hx alcohol use d/o, poor adherence to CPAP. -Discussed about the importance of lifestyle modification, especially smoking cessation. -Continue doxazosin 8 mg daily. -Continue lisinopril 40 mg daily. -Continue Carvedilol 25mg BID -Continue hydralazine 100 mg TID -Continue Furosemide 20mg daily -Decrease Amlodipine to 5mg daily --Treatment Hx-- -Diltiazem 300 mg was discontinued due to leg swelling -Amlodipine was supposed to be discontinued, however pt was still taking. Will decreased to 5 mg daily due to recurrent leg edema -Will consider SGLT-2 inhibitor for DM2, which may improve his BP. -Seen by Nephrology on 03/05/20 -Requested Dr. Long for 24-hour BP monitoring, will check its status -Previously on triamterene/hctz, which was discontinued due to pt's questionable adherence -Pt was advised to resume CPAP machine -BP check in 1 month Assessment & Plan (10/04/2022 4:12 PM EST): Goal BP <140/90 per JNC-8, < 130/80 per ACC/AHA guideline -BP at goal today -Risk factor / associated condition: Tobacco use; Hx alcohol use d/o, poor adherence to CPAP. -Discussed about the importance of lifestyle modification, especially smoking cessation. -Continue doxazosin 8 mg daily. -Continue lisinopril 40 mg daily. -Continue Carvedilol 25mg BID -Continue hydralazine 100 mg TID -Continue Furosemide 20mg daily -Decrease Amlodipine to 5mg daily --Treatment Hx-- -Diltiazem 300 mg was discontinued due to leg swelling -Amlodipine was supposed to be discontinued, however pt was still taking. Will decreased to 5 mg daily due to recurrent leg edema -Will consider SGLT-2 inhibitor for DM2, which may improve his BP. -Seen by Nephrology on 03/05/20 -Requested Dr. Long for 24-hour BP monitoring, will check its status -Previously on triamterene/hctz, which was discontinued due to pt's questionable adherence -Pt was advised to resume CPAP machine -BP check in 1 month Diabetes mellitus type 2, controlled 03/03/2014 Assessment & Plan (08/25/2024 2:37 PM EST): Dx 2013 -A1c 7.0% 08/04/24, patient has [...] mo or sooner if any problem arises Assessment & Plan (08/11/2024 6:22 AM EST): Dx 2013 -A1c 7.0% 08/04/24, patient has [...] mo or sooner if any problem arises Assessment & Plan (04/11/2024 6:16 AM EDT): Dx 2013 -A1c 6.9% on 04/07/24. Increased by 0.5% with weight gain. Patient attributes it to increased PO intake after smoking cessation. -Continue metformin ER 500 mg once daily. -Consider GLP-1 RA -Continue working of lifestyle modifications and SMBG. Last eye exam: Dr. Faulkner, recent visit per pt's report, will request a note Last foot exam: 08/13/23 Last microalbumin test: 11/18/23 UACR 10 Last lipid profile: 11/18/23 TC 136; TG 96; HDL 42; LDL 75 Last dental exam: up to date Follow up in 3-6 mo or sooner if any problem arises Assessment & Plan (01/04/2024 11:15 AM EDT): Dx 2013 -A1c 6.3% on 11/18/23 and 08/13/23, slightly increased from 5.9% in January 2023 -Continue metformin ER 500 mg once daily. -Continue working of lifestyle modifications and SMBG. Last eye exam: Dr. Faulkner, recent visit per pt's report, will request a note Last foot exam: 08/13/23 Last microalbumin test: 04/27/23 UACR 13 Last lipid profile: 04/27/23 TC 177; TG 113; HDL 44; LDL 53 Last dental exam: up to date Follow up in 3-6 mo or sooner if any problem arises Assessment & Plan (11/04/2023 12:54 PM EDT): Dx 2013 -A1c 6.3% on 08/13/23, slightly increased from 5.9% in January 2023 -Continue metformin ER 500 mg once daily. -Continue working of lifestyle modifications and SMBG. Last eye exam: Dr. Faulkner, recent visit per pt's report, will request a note Last foot exam: 08/13/23 Last microalbumin test: 04/27/23 UACR 13 Last lipid profile: 04/27/23 TC 177; TG 113; HDL 44; LDL 53 Last dental exam: up to date Follow up in 3-6 mo or sooner if any problem arises Assessment & Plan (08/14/2023 11:21 AM EST): Dx 2013 -A1c 6.3% on 08/13/23, slightly increased from 5.9% in January 2023 -Continue metformin ER 500 mg once daily. -Continue working of lifestyle modifications and SMBG. Last eye exam: Dr. Faulkner, recent visit per pt's report, will request a note Last foot exam: 08/13/23 Last microalbumin test: 04/27/23 UACR 13 Last lipid profile: 04/27/23 TC 177; TG 113; HDL 44; LDL 53 Last dental exam: up to date Follow up in 3-6 mo or sooner if any problem arises Assessment & Plan (05/11/2023 8:34 AM EDT): Dx 2013 -A1c 5.9% on 01/21/23, stable -Continue metformin ER 500 mg once daily. -Continue working of lifestyle modifications and SMBG. Last eye exam: Dr. Faulkner, recent visit per pt's report, will request a note Last foot exam: 04/27/23 Last microalbumin test: 04/27/23 UACR 13 Last lipid profile: 04/27/23 TC 177; TG 113; HDL 44; LDL 53 Last dental exam: up to date Follow up in 3-6 mo or sooner if any problem arises Assessment & Plan (02/01/2023 7:02 PM EDT): Dx 2013 -A1c 5.9% on 01/21/23, stable -Continue metformin ER 500 mg once daily. -Continue working of lifestyle modifications and SMBG. Last eye exam: Dr. Faulkner, recent visit per pt's report, will request a note Last foot exam: 04/24/22 Last microalbumin test: 01/10/22 UACR 20 Last lipid profile: 01/10/22 UACR 20; TC 123; TG 91; LDL 65; HDL 41 Last dental exam: up to date Assessment & Plan (2022 9:25 AM EST): Dx 2013 -A1c 6.3% on 09/11/22, stable -Continue metformin ER 500 mg once daily. -Continue working of lifestyle modifications and SMBG. Last eye exam: January [address] Faulkner, pt's report, will request a note Last foot exam:04/24/22 Last microalbumin test: 01/10/22 UACR 20 Last lipid profile: 01/10/22 UACR 20; TC 123; TG 91; LDL 65; HDL 41 Last dental exam: up to date Aspirin use: Prescribed Assessment & Plan (10/04/2022 4:45 PM EST): Dx 2013 -A1c 6.3% on 09/11/22, stable -Continue metformin ER 500 mg once daily. -Continue working of lifestyle modifications and SMBG. Last eye exam: January [address] Faulkner, pt's report, will request a note Last foot exam:04/24/22 Last microalbumin test: 01/10/22 UACR 20 Last lipid profile: 01/10/22 UACR 20; TC 123; TG 91; LDL 65; HDL 41 Last dental exam: up to date Aspirin use: Prescribed Chronic abdominal pain 02/22/2014 COPD (chronic obstructive pulmonary disease) Assessment & Plan (08/25/2024 2:39 PM EST): - Last exacerbation due to Influenza B in September - October 2023, seen in ED twice, and received prednisone and azithromycin. - Mild bronchitic exacerbation in Jun 2024, treated with azithromycin. - Restarted seeing [facility] Pulmonology providers. Seen by Dr. Castillo on [...] RADS2 - follow recommendations by Dr. Castillo Assessment & Plan (08/21/2024 3:19 PM EST): >>ASSESSMENT AND PLAN FOR ASTHMA WRITTEN ON 09/24/2022 10:58 AM BY CLARI ARANA Exacerbation due to CAP in Aug 2017 Continue Advair as maintenance. Continue ProAir HFA prn. Most recent PFT in 10/01/2018 -Mild degree of restrictive pulmonary disorder, which may be due to obesity. -No obstructive airway disease (but pt has SHANON) -Work on smoking cessation -Consider MRA in the future Assessment & Plan (08/11/2024 6:13 AM EST): - Last exacerbation due to Influenza B in September - October 2023, seen in ED twice, and received prednisone and azithromycin. - Mild bronchitic exacerbation in Jun 2024, treated with azithromycin. - Restarted seeing [facility] Pulmonology providers. Seen by Dr. Castillo on [...] RADS2 - follow recommendations by Dr. Castillo Assessment & Plan (04/11/2024 6:14 AM EDT): - Last exacerbation due to Influenza B in September - October 2023, seen in ED twice, and received prednisone and azithromycin. - Restarted seeing [facility] Pulmonology providers. Seen by Dr. Castillo on 10/28/23 for dyspnea evaluation. Last seen Dr. Castillo on 12/08/23. - Continue umeclidinium - vilanterol (Anoro) - Continue albuterol HFA prn - Most recent PFT in 10/01/2018: Mild degree of restrictive pulmonary disorder, which may be due to obesity; No obstructive airway disease (but pt has SHANON) - Congratulated on smoking cessation effort and encouraged to remain non-smoker - 12/22/[address] lung RADS2 - follow recommendations by Dr. Castillo - mild exacerbation today. Lung exam reveals minimal wheeze, and bibasilar rales. Check CXR. Short-course of prednisone with increased dose of torsemide while on prednisone. Discussed about diligent SMBG and low carb diet. Assessment & Plan (01/04/2024 11:10 AM EDT): - Last exacerbation due to Influenza B in September - October 2023, seen in ED twice, and received prednisone and azithromycin. - Restarted seeing [facility] Pulmonology providers. Seen by Dr. Castillo on 10/28/23 for dyspnea evaluation. Last seen Dr. Castillo on 12/08/23. - Continue umeclidinium - vilanterol (Anoro) - Continue albuterol HFA prn - Most recent PFT in 10/01/2018: Mild degree of restrictive pulmonary disorder, which may be due to obesity; No obstructive airway disease (but pt has SHANON) - Congratulated on smoking cessation effort and encouraged to remain non-smoker - 11/25/[address] lung RADS2 - follow recommendations by Dr. Castillo Assessment & Plan (11/04/2023 12:39 PM EDT): - Last exacerbation due to Influenza B in September - October 2023, seen in ED twice, and received prednisone and azithromycin. - Restarted seeing [facility] Pulmonology providers. Last seen by Dr. Castillo on 10/28/23 for dyspnea evaluation. - Continue umeclidinium - vilanterol (Anoro) - Continue albuterol HFA prn - Most recent PFT in 10/01/2018: Mild degree of restrictive pulmonary disorder, which may be due to obesity; No obstructive airway disease (but pt has SHANON) - Congratulated on smoking cessation effort and encouraged to remain non-smoker - 11/25/[address] lung RADS2 - follow recommendations by Dr. Castillo Assessment & Plan (08/21/2024 3:19 PM EST): >>ASSESSMENT AND PLAN FOR COPD (CHRONIC OBSTRUCTIVE PULMONARY DISEASE) ([facility]) WRITTEN ON 08/13/2023 4:56 AM BY BRIDGETTE FAGAN MD Last exacerbation due to CAP in Aug 2017 Following with [facility] pulmonology, Dr. Cruz Continue Advair as maintenance. Continue ProAir HFA prn. Most recent PFT in 10/01/2018 -Mild degree of restrictive pulmonary disorder, which may be due to obesity. -No obstructive airway disease (but pt has SHANON) -Work on smoking cessation -Consider LAMA in the future 11/25/[address] lung RADS2 >>ASSESSMENT AND PLAN FOR ASTHMA WRITTEN ON 08/13/2023 4:56 AM BY BRIDGETTE FAGAN MD Exacerbation due to CAP in Aug 2017 Continue Advair as maintenance. Continue ProAir HFA prn. Most recent PFT in 10/01/2018 -Mild degree of restrictive pulmonary disorder, which may be due to obesity. -No obstructive airway disease (but pt has SHANON) -Work on smoking cessation -Consider LAMA in the future Assessment & Plan (08/21/2024 3:19 PM EST): >>ASSESSMENT AND PLAN FOR COPD (CHRONIC OBSTRUCTIVE PULMONARY DISEASE) ([facility]) WRITTEN ON 05/11/2023 8:27 AM BY BRIDGETTE FAGAN MD Last exacerbation due to CAP in Aug 2017 Following with [facility] pulmonology, Dr. Cruz Continue Advair as maintenance. Continue ProAir HFA prn. Most recent PFT in 10/01/2018 -Mild degree of restrictive pulmonary disorder, which may be due to obesity. -No obstructive airway disease (but pt has SHANON) -Work on smoking cessation -Consider MRA in the future 11/25/[address] lung RADS2 >>ASSESSMENT AND PLAN FOR ASTHMA WRITTEN ON 05/11/2023 8:26 AM BY BRIDGETTE FAGAN MD Exacerbation due to CAP in Aug 2017 Continue Advair as maintenance. Continue ProAir HFA prn. Most recent PFT in 10/01/2018 -Mild degree of restrictive pulmonary disorder, which may be due to obesity. -No obstructive airway disease (but pt has SHANON) -Work on smoking cessation -Consider MRA in the future Assessment & Plan (02/01/2023 6:58 PM EDT): Last exacerbation due to CAP in Aug 2017 Following with [facility] pulmonologyDr. Cruz Continue Advair as maintenance. Continue ProAir HFA prn. Most recent PFT in 10/01/2018 -Mild degree of restrictive pulmonary disorder, which may be due to obesity. -No obstructive airway disease (but pt has SHANNO) -Work on smoking cessation -Consider MRA in the future 11/25/[address] lung RADS2 External hemorrhoids 01/07/2013 Kidney stone 01/07/2013 Microscopic hematuria 01/07/2013 Obesity 01/07/2013 Obstructive sleep apnea syndrome 01/07/2013 Assessment & Plan (08/25/2024 2:39 PM EST): -Last sleep study on 07/22/2018. Dx SHANON -Restarted auto-PAP in 2019 -Currently followed by [facility] sleep clinic, last appointment in May 2023, auto-PAP 8-20 cm H2O -Continue current setting -Work on lifestyle modifications Assessment & Plan (08/04/2024 10:59 PM EST): -Last sleep study on 07/22/2018. Dx SHANON -Restarted auto-PAP in 2019 -Currently followed by [facility] sleep clinic, last appointment in May 2023, auto-PAP 8-20 cm H2O -Continue current setting -Work on lifestyle modifications Assessment & Plan (04/07/2024 11:48 AM EDT): -Last sleep study on 07/22/2018. Dx SHANON -Restarted auto-PAP in 2019 -Currently followed by [facility] sleep clinic, last appointment in May 2023, auto-PAP 8-20 cm H2O -Continue current setting -Work on lifestyle modifications Assessment & Plan (08/13/2023 4:54 AM EST): -Last sleep study on 07/22/2018. Dx SHANON -Restarted auto-PAP in 2019 -Currently followed by [facility] sleep clinic, last appointment in May 2023, auto-PAP 8-20 cm H2O -Continue current setting -Work on lifestyle modifications Assessment & Plan (05/11/2023 8:26 AM EDT): -Last sleep study on 07/22/2018. Dx SHANON -Restarted auto-PAP in 2019 -Currently followed by [facility] sleep clinic, last appt in 12/31/21, auto-PAP 8-20 cm H2O -Pt received new CPAP machine and now scheduled for Mask Fitting d/t pain on his head. -Continue current setting -Work on lifestyle modifications -Will request [facility] sleep medicine clinic to follow up and provide recommendation. Assessment & Plan (01/21/2023 10:57 AM EDT): -Last sleep study on 07/22/2018. Dx SHANON -Restarted auto-PAP in 2019 -Currently followed by [facility] sleep clinic, last appt in 11/13/22 , New CPAP was prescribed. APAP 8-20 cmH2O. -Continue current setting -Work on lifestyle modifications Assessment & Plan (2022 2:08 PM EST): -Last sleep study on 07/22/2018. Dx SHANON -Restarted auto-PAP in 2019 -Currently followed by [facility] sleep clinic, last appt in 12/31/21, auto-PAP 8-20 cm H2O -Pt received new CPAP machine and now scheduled for Mask Fitting d/t pain on his head. -Continue current setting -Work on lifestyle modifications -Will request [facility] sleep medicine clinic to follow up and provide recommendation. Assessment & Plan (09/24/2022 10:57 AM EST): -Last sleep study on 07/22/2018. Dx SHANON -Restarted auto-PAP in 2019 -Currently followed by [facility] sleep clinic, last appt in 12/31/21, auto-PAP 8-20 cm H2O -Pt received new CPAP machine and now scheduled for Mask Fitting d/t pain on his head. -Continue current setting -Work on lifestyle modifications History of tobacco use disorder 01/07/2013 Assessment & Plan (04/11/2024 6:17 AM EDT): -Pt is followed by [facility]. -Last CT scan on 12/22/23 Lung RADS 2 -Continue working on smoking cessation effort Assessment & Plan (11/04/2023 12:56 PM EDT): -Pt was previously followed by [facility]. -Last CT scan in 11/2022 Lung RADS 2 -Continue working on smoking cessation effort Assessment & Plan (08/13/2023 5:01 AM EST): -Pt was previously followed by [facility]. -Last CT scan in 11/2022 Lung RADS 2 -Continue working on smoking cessatioin Assessment & Plan (05/11/2023 8:34 AM EDT): -Pt was previously followed by [facility]. -Last CT scan in 11/2022 Lung RADS 2 -Continue working on smoking cessatioin Assessment & Plan (01/21/2023 11:15 AM EDT): -Pt was previously followed by [facility]. -Last CT scan in 11/2022 Lung RADS 2 -Continue working on smoking cessatioin Assessment & Plan (10/04/2022 4:47 PM EST): -Pt was previously followed by [facility]. -Last CT scan in October 2021 Lung RADS 2 -Will check with Lung Cancer screening program in [facility] for next CT scan schedule -Continue working on smoking cessatioin Allergic rhinitis 01/07/2013 Assessment & Plan (05/11/2023 8:48 AM EDT): - continue loratadine - previously on ipratropium nasal spray which was effective - will prescribe 3 different nasal sprays (saline to moisten and clean nasal cavity, steroid for inflammation, and ipratropium to dilate nasal airway). Benign prostatic hyperplasia 01/27/2012 Assessment & Plan (08/25/2024 2:37 PM EST): - following with [facility] Urology - continue doxazosin and finasteride Assessment & Plan (08/11/2024 6:20 AM EST): - following with [facility] U[facility] - continue doxazosin and finasteride Assessment & Plan (04/07/2024 12:09 PM EDT): - continue doxazosin - seen by urologist, US showed enlarged prostate, patient was advised to contact urology office for follow-up appointment Assessment & Plan (11/04/2023 12:54 PM EDT): - decreasing doxazosin Raised prostate specific antigen 01/27/2012 Resolved Problems Problem Noted Date Diagnosed Date Resolved Date Hip pain 09/11/2022 06/03/2024 Moderate persistent asthma 06/26/2015 0 10/04/2022 Encounters Date Type Department Care Team Description 09/12/2024 10:15 AM EST Office Visit [facility] [address] [place] [address] Byron Enriquez 08/25/[address] [address] Bridgette Fagan MD 08/24/2024 11:30 AM EST Office Visit [facility] [address] [place] [id number] Amarjit Foster DDS Caries of cervical margin of tooth (Primary Dx); Odontalgia 08/22/2024 2:30 PM EST Office Visit [address] [address] Bridgette Fagan MD Bladder stones (Primary Dx); Preop examination; Benign prostatic hyperplasia with lower urinary tract symptoms, symptom details unspecified; Controlled type 2 diabetes mellitus without complication, without long-term current use of insulin ([facility]); Hypertension, unspecified type; Obstructive sleep apnea syndrome; Moderate persistent asthma without complication; Chronic obstructive pulmonary disease, unspecified COPD type (CMS/HCC) 08/22/[address] [address] Florida Larson [place] 08/22/2024 Travel 08/19/[address] [address] [place] Larson [place] dme recliner 08/19/[address] [address] Bridgette Fagan MD 08/04/2024 11:00 AM EST Office Visit [address] [address] Bridgette Fagan MD Periodic limb movement disorder (PLMD) (Primary Dx); Obstructive sleep apnea syndrome; Lumbar radiculopathy; Chronic obstructive pulmonary disease, unspecified COPD type (CMS/HCC); Hypertension, unspecified type; Controlled type 2 diabetes mellitus without complication, without long-term current use of insulin ([facility]); Tremor; Benign prostatic hyperplasia with lower urinary tract symptoms, symptom details unspecified; Lower urinary tract symptoms (LUTS); Bladder stones; Memory difficulties; 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) 08/04/[address] [address] Bridgette Fagan MD Pre-op Exam 08/04/2024 Travel 08/01/2024 9:30 AM EST Office Visit [facility] [address] [facility] [place] [address] Amarjit Foster DDS Fractured dental alevism with loss of material (Primary Dx) 07/25/2024 Telephone [facility] [address] [place] [phone] Bridgette Fagan MD chart prep 07/08/2024 9:00 AM EST Office Visit [facility] [address] [place] [address] Lydia Mac Dental caries into pulp (Primary Dx); Dental plaque; Staining (discoloration) of teeth 06/24/2024 Orders Only [facility] [address] [place] [phone] Bridgette Fagan MD 06/24/[address] [address] Bridgette Fagan MD Medication Question from Last 3 Months Immunizations Name Administration Dates Next Due Hep B, adult 09/28/2017,06/29/2017,03/24/2017 Influenza High-dose Quadriva lent Preservative Free 05/02/2020 Influenza injectable quadriv alent IIV4 with preservative 06/29/2017,06/26/2015 Influenza, High Dose Seasona l, Preservative Free 05/02/2020,06/13/2019,05/24/2018 Influenza, IIV3, injectable 06/29/2017,1 08/26/2014,08/22/2014,08/08,08/21/2011,05/24/2010,09/13/2009 Influenza, Split (incl. nikki fied surface antigen) 08/08/2013 Pneumococcal Conjugate PCV 13 04/13/2015 Pneumococcal Polysaccharide PPSV23 08/08/2013, TD (adult), 2 Lf tetanus tox oid, preservative free, adsorbed 01/23/1997 Td, Adsorbed, Preservative F ree, Adult Use, Lf Unspecified 01/23/1997 Tdap 09/14/2013 Zoster, live 04/27/2017 Social History Tobacco Use Types Packs/Day Years Used Date Smoking Tobacco: Former Cigarettes 0.5 63 Passive Smoke Exposure: Past Smokeless Tobacco: Never Tobacco Cessation:Counseling Given: Not Answered Comments:Cigarette smoking quit date 10/12/2023 Alcohol Use Standard Drinks/Week Comments [...] not to disclose 2021 10:14 AM EDT Last Filed Vital Signs Vital Sign Reading Time Taken Comments Blood Pressure 130/60 08/24/2024 10:46 AM EST Pulse 70 08/22/2024 2:30 PM EST Temperature 35.8 ??C (96.4 ??F) 08/22/2024 2:30 PM ES T Respiratory Rate 19 08/22/2024 2:30 PM EST Oxygen Saturation 98% 08/22/2024 2:30 PM EST Inhaled Oxygen Concentration - - Weight 112 kg (246 lb 12.8 oz) 08/22/2024 2:30 P M EST Height 167.6 cm (5' 6 ) 05/31/2024 2:22 PM EDT Body Mass Index 39.83 05/31/2024 2:22 PM EDT Plan of Treatment Upcoming Encounters Date Type Department Care Team (Late st Contact Info) Description 11/01/2024 10:30 AM EDT Office Visit [facility] [address] [place], [place] [phone] Bridgette Fagan MD [address] [place], [place] [phone] 01/06/2025 10:00 AM EDT Office Visit [facility] [address] [place], [place] [phone] Greg Macaris [address] [place] [address] Health Maintenance Due Date Last Done Comments Hepatitis C Screening 10/16/1963 Zoster Vaccines (2 of 3) 06/22/2017 04/27/2017 RSV Patients and Patients Aged 60 years or older (1 - 1-dose 75+ series) 2020 DTaP/Tdap/Td Vaccines (2 - Td or Tdap) 09/14/2023 09/14/2013, 01/23/1997, 01/23/1997 COVID-19 Vaccine ( season) 2024 Influenza Vaccine (#1) 2024 0, 05/02/2020, 06/13/2019, Additional history exists Diabetes: Hemoglobin A1C 11/02/2024 024, 04/07/2024, 01/04/2024, Additional history exists SDOH Screening 11/03/2024 11/04/2023 Diabetes: Urine Protein Screening 11/17/2024 11/18/2023, 04/28/2023, 04/28/2023, Additional history exists Lipid Panel 11/17/2024 11/18/2023, 06/0 02/2023, 01/10/2022, Additional history exists Dental Oral Exam 01/06/2025 07/08/2024, 03/2023, 06/20/2022 Dental Prophylaxis 01/06/2025 07/08/2024, 0 12/28/2023, 06/24/2023, Additional history exists Depression Screening 04/07/2025 04/07/2024, 04/07/20 24 Dental X-Ray: Full Mouth 06/21/2025 06/20/2022 Alcohol/Substance Use Screening 08/04/2025 08/04/2024 Diabetes: Foot Exam 08/04/2025 08/04/2024, 08/13/2023, 08/13/2023, Additional history exists Tobacco Screening 08/24/2025 08/24/2024 Dental X-Ray: Bitewings 09/13/2025 09/12/19 25, 07/08/2024, 06/24/2023 Eye Exam 06/29/2026 06/29/2024 Pneumococcal Vaccine: 65+ Years Completed 04/13/2015, 08/08/2013, 05/07/2006 Hepatitis B Vaccines Completed 09/28/2017, 06/29/2017, 03/24/2017 Lung Cancer Screening Discontinued 12/22/2023, 023 HIB Vaccines Aged Out No longer eligi ble based on patient's age to complete this topic HPV Vaccines Aged Out No longer eligi ble based on patient's age to complete this topic Hepatitis A Vaccines Aged Out No long er eligible based on patient's age to complete this topic IPV Vaccines Aged Out No longer eligi ble based on patient's age to complete this topic Meningococcal Vaccine Aged Out No edna serenity eligible based on patient's age to complete this topic RSV under 20 months Aged Out No longe r eligible based on patient's age to complete this topic Rotavirus Vaccines Aged Out No longer eligible based on patient's age to complete this topic Goals Goal Patient Goal Type Associated Problems Recent Progress Patient-Stated? Author Blood Pressure < 140/90 Blood Pressure 130/60(2024 10:46 AM EST) No Ramón Bolaños, PharmD Hemoglobin A1c < 7 Result Component 7(08/04/2024 11:32 AM EST) Ramón Martinez, Bradley Procedures Procedure Name Priority Date/Time Associated Diagnosis Comments ADJUNCTIVE GENERAL SERVICES - PROFESSIONAL VISITS - CASE PRESENTATION, SUBSEQUENT TO DETAILED AND EXTENSIVE TREATMENT PLANNING Routine 09/12/2024 10:15 AM EST ORAL HYGIENE INSTRUCTIONS Routine 09/12/2024 10:15 AM EST INTRAORAL - PERIAPICAL FIRST RADIOGRAPHIC IMAGE Routine 09/12/2024 10:15 AM EST BITEWING - SINGLE RADIOGRAPHIC IMAGE Routine 09/12/2024 10:15 AM EST CONSULTATION - DIAGNOSTIC SERVICE PROVIDED BY DENTIST OR PHYSICIAN OTHER THAN REQUESTING DENTIST OR PHYSICIAN Routine 09/12/2024 10:15 AM EST ADJUNCTIVE GENERAL SERVICES - UNCLASSIFIED TREATMENT - PALLIATIVE TREATMENT OF DENTAL PAIN - PER VISIT Routine 08/24/2024 11:30 AM EST INTRAORAL - PERIAPICAL FIRST RADIOGRAPHIC IMAGE Routine 08/24/2024 11:30 AM EST ADJUNCTIVE GENERAL SERVICES - PROFESSIONAL VISITS - CASE PRESENTATION, SUBSEQUENT TO DETAILED AND EXTENSIVE TREATMENT PLANNING Routine 08/24/2024 11:30 AM EST POCT GLYCOSYLATED HEMOGLOBIN (HGB A1C) Routine 08/04/2024 11:32 AM EST Controlled type 2 diabetes mellitus without complication, without long-term current use of insulin ([facility]) POCT GLUCOSE Routine 08/04/2024 11:31 AM EST Controlled type 2 diabetes mellitus without complication, without long-term current use of insulin ([facility]) ADJUNCTIVE GENERAL SERVICES - PROFESSIONAL VISITS - CASE PRESENTATION, SUBSEQUENT TO DETAILED AND EXTENSIVE TREATMENT PLANNING Routine 08/01/2024 9:30 AM EST 12 B(V) RESTORATIVE - RESIN-BASED COMPOSITE RESTORATIONS - DIRECT - RESIN-BASED COMPOSITE - ONE SURFACE, POSTERIOR Routine 08/01/2024 9:30 AM EST PERIODIC ORAL EVALUATION - ESTABLISHED PATIENT Routine 07/08/2024 9:00 AM EST INTRAORAL - PERIAPICAL EACH ADDITIONAL RADIOGRAPHIC IMAGE Routine 07/08/2024 9:00 AM EST Dental caries into pulp Dental plaque Staining (discoloration) of teeth ORAL HYGIENE INSTRUCTIONS Routine 07/08/2024 9:00 AM EST Dental caries into pulp Dental plaque Staining (discoloration) of teeth 32,30 INTRAORAL - PERIAPICAL FIRST RADIOGRAPHIC IMAGE Routine 07/08/2024 9:00 AM EST Dental caries into pulp Dental plaque Staining (discoloration) of teeth BITEWINGS - 4 RADIOGRAPHIC IMAGES Routine 07/08/2024 9:00 AM EST Dental caries into pulp Dental plaque Staining (discoloration) of teeth PROPHYLAXIS - ADULT Routine 07/08/2024 9 :00 AM EST Dental plaque Staining (discoloration) of teeth 12 B(V) COMPOSITE FILLING Routine 07/08/2024 12:00 AM EST DIABETES EYE EXAM Routine 06/29/2024 LDCT LUNG SCREENING Routine 12/22/2023 9 :58 AM EDT LIPID PANEL WITH REFLEX TO DIRECT LDL Routine 11/18/2023 8:40 AM EDT Hypertension, unspecified type Dyslipidemia ALBUMIN, RANDOM URINE W/CREATININE Routine 11/18/2023 8:35 AM EDT Controlled type 2 diabetes mellitus without complication, without long-term current use of insulin ([facility]) from Last 3 Months or Most Recently Relevant to Health Maintenance Results * (ABNORMAL) POCT glycosylated hemoglobin (Hgb A1c) (08/04/2024 11:32 AM EST) Hemoglobin A1C 7.0(A) 4.0 - 6.0 % QC Media Lot # [id number] Lot# Expiration Date 998, Blood Capillary blood specimen / Unknown 08/04/2024 11:32 AM EST us Bridgette Fagan MD POINT OF CARE TEST ENTER/EDIT OR DERABLES Final Result * POCT glucose manually resulted (08/04/2024 11:31 AM EST) Glucose Blood, POC 115 60 - 200 mg/dL QC Media Lot # [id number] Lot# Expiration Date 399,025 Blood Capillary blood specimen / Unknown 08/04/2024 11:31 AM EST us Bridgette Fagan MD POINT OF CARE TEST ENTER/EDIT OR DERABLES Final Result * Diabetes Eye Exam (06/29/2024) Eye Exam Normal Normal 06/29/2024 us Historical Provider MD HEALTH MAINTENANCE Final Result * CT Lung Screening Low dose (12/22/2023 9:58 AM EDT) Anatomical Region Laterality Modality Lung Computed Tomogra phy 12/22/2023 9:58 AM EDT Narrative 12/27/2023 11:40 PM EDT ? [facility] ?[address] ?[place] [address] ? CT Scan Report ? Signed ? Patient: Bharathi Walsh ?M ?? R#: [id number] ? : 1945 ?Acct:[id number] ? Age/Sex: 78 / M ?ADM Date: 12/22/23 ? Loc: HO.CT ? Attending Dr: Tc Castillo MD ? Ordering Physician: Tc Castillo MD ?? Date of Service: 12/22/23 ?? Procedure(s): CT lung screening ?? Accession Number(s): [id number] ? cc: Tc Castillo MD; Bridgette Fagan MD ? EXAMINATION: ?? CT LUNG SCREENING ? CLINICAL INFORMATION: ?? Personal history of nicotine dependence. The patient has a 50 pack-year ?? history of smoking, having quit 4 months ago. ? COMPARISON: ?? X-ray chest 10/24/2023. CT chest 11/25/2022. ? TECHNIQUE: ?? Multidetector volumetric CT imaging of the chest is performed on a ?? Siemens SOMATOM Definition scanner without contrast using low dose ?? technique. Additional 2D coronal and sagittal reformatted images and ?? axial 3D maximum intensity projection (MIP) images are generated on the ?? CT workstation. ? This CT examination was performed using dose optimization techniques as ?? appropriate, variously including the following: ?? *Automated exposure control ?? *Adjustment of mA and/or kV according to patient size (this includes ?? techniques or standardized protocols for targeted exams where dose is ?? matched to indication/reason for exam; i.e. extremities or head) ?? *Use of iterative reconstruction technique ? TOTAL EXAM DLP: ?? 66 mGy-cm. ? CTDIvol: ?? 1.91 mGy. ? FINDINGS: ? PULMONARY NODULES: Some small punctate pulmonary nodules are seen, all ?? unchanged, with the largest nodule measuring 4 mm in a subpleural ?? location in the left upper lobe (5:208 compare prior 5:190). No new, ?? increasing sized or suspicious pulmonary nodule is seen. ? LUNGS: Lungs bilaterally symmetrically expanded. Mild emphysematous ?? changes are present. Moderate bronchial thickening is seen. No effusion ?? or pneumothorax. Central airways patent. ? MEDIASTINUM: No mediastinal, hilar or axillary adenopathy or free fluid ?? collection. ? CORONARY ARTERY CALCIFICATION: Moderate. ? THYROID GLAND: Unremarkable to the extent seen. ? CARDIOVASCULAR STRUCTURES: Aortic and heart size normal. No pericardial ?? effusion. ? CHEST WALL/AXILLA: Moderate gynecomastia. ? UPPER ABDOMEN: Included portions of the solid organs in the upper ?? abdomen unremarkable on noncontrast imaging. ? OSSEOUS STRUCTURES: No suspicious focal findings. ? CT/CT lung screening ?? IMPRESSION: ?? No findings suggestive of malignancy. Benign unchanged micronodules. ? ASSESSMENT: ?? 1. Lung-RADS Category 2: Benign appearance or behavior of nodules. N/A ? 2. Lung-RADS Category S: Negative. There are no clinically significant ?? or potentially clinically significant findings not related to the lungs ?? requiring urgent additional evaluation. ? RECOMMENDATION: ?? Continued routine annual low-dose CT lung screening in 1 year is ?? recommended. An order for CT CHEST LOW DOSE CANCER SCREENING ([id number]) ?? can be placed. ? Dictated By: ?Kun Enciso MD ? Signed By: ?<Electronically signed by Kun Enciso MD in OV> ? 12/27/236 ? DD/ 09 ? TD/TT: ? Flash Welding Machine Operator: SS ? Procedure Note Colton Guy - 12/27/[address] [place] [address] CT Scan Report Signed Patient: Shalom Walsh R#: [id number] : 6Acct:[id number] Age/Sex: 78 / MADM Date: 12/22/23 Loc: HO.CT Attending Dr: Tc Castillo MD Ordering Physician: Tc Castillo MD Date of Service: 12/22/23 Procedure(s): CT lung screening Accession Number(s): [id number] cc: Tc Castillo MD; Bridgette Fagan MD EXAMINATION: CT LUNG SCREENING CLINICAL INFORMATION: Personal history of nicotine dependence. The patient has a 50 pack-year history of smoking, having quit 4 months ago. COMPARISON: X-ray chest 10/24/2023. CT chest 11/25/2022. TECHNIQUE: Multidetector volumetric CT imaging of the chest is performed on a Siemens SOMATOM Definition scanner without contrast using low dose technique. Additional 2D coronal and sagittal reformatted images and axial 3D maximum intensity projection (MIP) images are generated on the CT workstation. This CT examination was performed using dose optimization techniques as appropriate, variously including the following: *Automated exposure control *Adjustment of mA and/or kV according to patient size (this includes techniques or standardized protocols for targeted exams where dose is matched to indication/reason for exam; i.e. extremities or head) *Use of iterative reconstruction technique TOTAL EXAM DLP: 66 mGy-cm. CTDIvol: 1.91 mGy. FINDINGS: PULMONARY NODULES: Some small punctate pulmonary nodules are seen, all unchanged, with the largest nodule measuring 4 mm in a subpleural location in the left upper lobe (5:208 compare prior 5:190). No new, increasing sized or suspicious pulmonary nodule is seen. LUNGS: Lungs bilaterally symmetrically expanded. Mild emphysematous changes are present. Moderate bronchial thickening is seen. No effusion or pneumothorax. Central airways patent. MEDIASTINUM: No mediastinal, hilar or axillary adenopathy or free fluid collection. CORONARY ARTERY CALCIFICATION: Moderate. THYROID GLAND: Unremarkable to the extent seen. CARDIOVASCULAR STRUCTURES: Aortic and heart size normal. No pericardial effusion. CHEST WALL/AXILLA: Moderate gynecomastia. UPPER ABDOMEN: Included portions of the solid organs in the upper abdomen unremarkable on noncontrast imaging. OSSEOUS STRUCTURES: No suspicious focal findings. CT/CT lung screening IMPRESSION: No findings suggestive of malignancy. Benign unchanged micronodules. ASSESSMENT: 1. Lung-RADS Category 2: Benign appearance or behavior of nodules. N/A 2. Lung-RADS Category S: Negative. There are no clinically significant or potentially clinically significant findings not related to the lungs requiring urgent additional evaluation. RECOMMENDATION: Continued routine annual low-dose CT lung screening in 1 year is recommended. An order for CT CHEST LOW DOSE CANCER SCREENING ([id number]) can be placed. Dictated By: Kun Enciso MD Signed By: <Electronically signed by Kun Enciso MD in OV> 12/27/23 4416 DD/ TD/TT: Flash Welding Machine Operator: [facility] External Provider IMG CT PROCEDURES Edited Result - Final * Lipid Panel with Reflex to Direct LDL (11/18/2023 8:40 AM EDT) Triglycerides 96 <150 mg/dL [facility] Comment:Desirable Triglyceri de: less than 150 mg/dLBorderline High Triglyceride 150-199 mg/dLHigh Triglyceride: 200-499 mg/dLVery High Triglyceride: greater than or equal to 5OO mg/dL Cholesterol 136 <200 mg/dL [facility] Comment:Desirable Cholestero l: less than 200 mg/dLBorderline High Cholesterol: 200-239 mg/dLHigh Cholesterol: greater than 239 mg/dL LDL Cholesterol Calculated 75 <100 mg/dL [facility] Comment:Desirable LDL: less than 100 mg/dLNear Optimal/Above Optimal LDL: 110- 129 mg/dLBorderline High LDL: 130-159 mg/dLHigh LDL: 160-189 mg/dLVery High LDL: greater than or equal to 190 mg/dL HDL Cholesterol 42 >40 mg/dL [facility] Comment:Desirable HDL: great er than 40 mg/dL Note: This HDL assay may give artificially low results in patients with liver disease. Blood 11/18/2023 8:40 AM EDT 11/18/2023 11:14 AM EDT Bridgette Fagan MD LAB BLOOD ORDERABLES Final Resul t Performing Organization Address City/[facility] Co de Phone Number [facility] [address] [place] [phone] * Albumin, Random Urine W/Creatinine (11/18/2023 8:35 AM EDT) Creatinine, Urine 119.50 mg/dL [facility] Microalbumin Urine 12.0 mg/L H [facility] Microalbum Creatinine Ratio Ur 10.0 <30 ug/mg cr [facility] Comment:Albumin/Creatinine R atio Reference Ranges: Normal: < 30 ug/mg creatinine Microalbuminuria: 30 - 300 ug/mg creatinineClinical Albuminuria: > 300 ug/mg creatinine Urine 11/18/2023 8:35 AM EDT 11/18/2023 11:38 AM EDT us Bridgette Fagan MD LAB URINE ORDERABLES Final Resul t Performing Organization Address City/[facility] Co de Phone Number [facility] [address] [place] [phone] from Last 3 Months or Most Recently Relevant to Health Maintenance Insurance [facility] COMPLETE [facility] - [facility] * Guarantor: Bharathi Walsh Account Type Relation to Patient Date of Phone Billing Address Personal/Family Self [address] [place] [address] * Guarantor: Bharathi Walsh Account Type Relation to Patient Date of Phone Billing Address Personal/Family Self [address] [place] [address] * Guarantor: Bharathi Walsh Account Type Relation to Patient Date of Phone Billing Address Personal/Family Self [address] [place] [address] Care Teams Maxillofacial Pathology Relationship Specialty Start Date End Date Bridgette Fagan MD [address] [place] [address] PCP - General Family Medicine 07/01/12 Ramón Bolaños, PharmD [address] [place] [address] Pharmacist Internal Medicine 11/18/23
--- OUTSIDE RECORDS SUMMARY | 2024-09-13 06:51 | XMS_ITS | Encounter Summary ---
Author Organization [employer] Address [address] [facility] [address] [place] [address] Care Team Providers Care Business Account Manager Name Role Phone Bridgette Gandhi MD Primary Care Provider [phone] Ramón Bolaños PharmD Unavailable [phone] Encounter Details Date Type Department Care Team (Latest Contact Info) Description 08/22/2024 Travel Social History Tobacco Use Types Packs/Day Years [...] AM EDT documented as of this encounter Plan of Treatment Upcoming Encounters Date Type Department Care Team (Late st Contact Info) Description 11/01/2024 10:30 AM EDT Office Visit [facility] [address] [place] [phone] Bridgette Gandhi MD [address] [place] [phone] 01/06/2025 10:00 AM EDT Office Visit [facility] ADULT D[facility] [address] [place] [address] Lydia Mac [address] [place] [address] documented as of this encounter Goals Goal Patient Goal Type Associated Problems Recent Progress Patient-Stated? Author Blood Pressure < 140/90 Blood Pressure 130/60(2024 10:46 AM EST) No Ramón Bolaños PharmD Hemoglobin A1c < 7 Result Component 7(08/04/2024 11:32 AM EST) No Ramón Bolaños PharmD documented as of this encounter Visit Diagnoses Not on filedocumented in this encounter Additional Health Concerns Assessment Noted Time PHQ-9 Depression Total Score: 0 04/07/20 24 11:45 AM EDT documented as of this encounter Care Teams Business Account Manager Relationship Specialty Start Date End Date Bridgette Gandhi MD [address] [place] [phone] PCP - General Family Medicine 07/01/12 Ramón Bolaños, PharmD [address] [place] [phone] Pharmacist Internal Medicine 11/18/23 documented as of this encounter
--- OUTSIDE RECORDS SUMMARY | 2024-09-13 06:51 | XMS_ITS | Encounter Summary ---
Author Organization [employer] Address [address] [facility] 7[address] [place] [address] Care Team Providers Care Textile Worker Name Role Phone Bridgette Gandhi MD Primary Care Provider [phone] Ramón Bolaños PharmD Unavailable [phone] Reason for Visit * Reason Onset Date Comments chart prep 08/19/2024 Encounter Details Date Type Department Care Team (Late st Contact Info) Description 08/19/2024 Refill [facility] [address] [place], [place] [phone] Bridgette Gandhi MD [address] [place], [place] [phone] Social History Tobacco Use Types Packs/Day Years [...] the past 12 months, has t he [employer], gas, oil or water company threatened to [...] AM EDT documented as of this encounter Miscellaneous Notes * Telephone Encounter - [place] L[place] - 08/19/2024 9:02 AM EST .Chart Prep Labs: not applicable Images: not applicable Vaccines due: Covid Due and Flu Due Referrals: Neurology pending appt 08-22-24 Screenings: Eye Exam ma requested notes Overdue care gaps: None documented in this encounter Plan of Treatment Upcoming Encounters Date Type Department Care Team (Late st Contact Info) Description 11/01/2024 10:30 AM EDT Office Visit [facility] [address] [place] [address] Bridgette Gandhi MD [address] [place] [address] 01/06/2025 10:00 AM EDT Office Visit [facility] ADULT DENT[facility] [address] [place] [address] Lydia Mac [address] [place] [address] documented as of this encounter Goals Goal [...] Time PHQ-9 Depression Total Score: 0 04/07/20 11:45 AM EDT documented as of this encounter Care Teams Textile Worker Relationship Specialty Start Date End Date Bridgette Gandhi MD [address] [place] [address] PCP - General Family Medicine 07/01/12 Ramón Bolaños PharmD [address] [place] [address] Pharmacist Internal Medicine 11/18/23 documented as of this encounter
--- OUTSIDE RECORDS SUMMARY | 2024-09-13 06:51 | XMS_ITS | Encounter Summary ---
Author Organization [employer] Address [address] [facility] 7t [place] [address] Care Team Providers Care Fabrication Welder Name Role Phone Bridgette Gandhi MD Primary Care Provider [phone] Ramón Bolaños PharmD Unavailable [phone] Encounter Details Date Type Department Care Team (Late st Contact Info) Description 09/12/2024 10:15 AM EST Office Visit [facility] ADULT [facility] [address] [place], [place] [phone] Zoe, Byron [address] [place], [place] [phone] Social History Tobacco Use Types Packs/Day Years [...] AM EDT documented as of this encounter Progress Notes * Byron Enriquez - 09/12/2024 10:15 AM EST Dental procedures in this visit D9310 - CONSULTATION - DIAGNOSTIC SERVICE PROVIDED BY DENTIST OR PHYSICIAN OTHER THAN REQUESTING DENTIST OR PHYSICIAN (Completed) Service provider: Byron Enriquez [place] provider: Max Morrow DMD D0270 - BITEWING - SINGLE RADIOGRAPHIC IMAGE (Completed) Service provider: Byron Enriquez [place] provider: Max Morrow DMD D0220 - INTRAORAL - PERIAPICAL FIRST RADIOGRAPHIC IMAGE (Completed) Service provider: Byron Enriquez [place] provider: Max Morrow DMD D1330 - ORAL HYGIENE INSTRUCTIONS (Completed) Service provider: Byron Enriquez [place] provider: Max Morrow DMD D9450 - ADJUNCTIVE GENERAL SERVICES - PROFESSIONAL VISITS - CASE PRESENTATION, SUBSEQUENT TO DETAILED AND EXTENSIVE TREATMENT PLANNING (Completed) Service provider: Byron Galindo provider: Max Morrow DMD Patient ID: Bharathi Angel is a 78 y.o. male. Time Out: Date: 09/12/2024 Location: [facility] Tooth: #32 Procedure: Exam Verified the above with patient, camp assistant, and provider. Confirmed via patient's chart, intraorally and by radiographs. Brush Clearer Surveying: not applicable 78 y.o. y/o male presents for limited exam with Dr. Byron Enriquez Medical history: Reviewed in EHR Vitals: There were no vitals taken for this visit. Allergies: Reviewed in EHR Medications: Reviewed in EHR Radiographs taken: PA and BW CHIEF COMPLAINT: Im in pain on my lower right side of the mouth Discussion: The patient was referred by [facility] for a dental visit. Pt with current three-unit bridge spanning from tooth #32 to tooth #30 and reported experiencing pain. The patient isalso on an antibiotic regimen. Clinically, a ceramic three-unit bridge is present, and radiographicevaluation revealed radiolucency at the mesial root of tooth #32 in the cervical third under the crown. Two treatment options were discussed with the patient. The first option involved extracting tooth #32 and sectioning the bridge, leaving tooth #30 with a crown only. The second option involved sectioning the bridge, removing the pontic (tooth #30) and the crown on tooth #32, and evaluating tooth #32 for restorability after crown removal. The patient understood both options and agreed to proceed with the second option. NV: Caries control Provider: Dr. Byron Enriquez Dental Conventions Reservationist: Kevin Santos Attending: Dr. Morrow * Max Morrow DMD - 09/12/2024 10:15 AM EST Reviewed. Max Morrow DMD documented in this encounter Plan of Treatment Upcoming Encounters Date Type Department Care Team (Late st Contact Info) Description 11/01/2024 10:30 AM EDT Office Visit [facility] [address] [place] [address] Bridgette Gandhi MD [address] [place] [address] 01/06/2025 10:00 AM EDT Office Visit [facility] ADULT D[facility] [address] [place] [address] Lydia Mac [address] [place] [address] Scheduled Orders Name Type Priority Associated Diagnoses Orde r Schedule 32 32 PREVENTIVE - OTHER PREVENTIVE SERVICES - APPLICATION OF CARIES ARRESTING MEDICAMENT - PER TOOTH Dental Routine [address] arting 09/12/2024 documented as of this encounter Goals Goal Patient Goal Type Associated Problems Recent Progress Patient-Stated? Author Blood Pressure < 140/90 Blood Pressure 130/60(2024 10:46 AM EST) No Ramón Bolaños PharmD Hemoglobin A1c < 7 Result Component 7(08/04/2024 11:32 AM EST) No Ramón Bolaños PharmD documented as of this encounter Procedures Procedure Name Priority Date/Time Associated Diagnosis Comments ORAL HYGIENE INSTRUCTIONS Routine 2024 10:15 AM EST INTRAORAL - PERIAPICAL FIRST RADIOGRAPHIC IMAGE Routine 09/12/2024 10:15 AM EST CONSULTATION - DIAGNOSTIC SERVICE PROVIDED BY DENTIST OR PHYSICIAN OTHER THAN REQUESTING DENTIST OR PHYSICIAN Routine 09/12/2024 10:15 AM EST ADJUNCTIVE GENERAL SERVICES - PROFESSIONAL VISITS - CASE PRESENTATION, SUBSEQUENT TO DETAILED AND EXTENSIVE TREATMENT PLANNING Routine 09/12/2024 10:15 AM EST BITEWING - SINGLE RADIOGRAPHIC IMAGE Routine 09/12/2024 10:15 AM EST documented in this encounter Visit Diagnoses Not on filedocumented in this encounter Additional Health Concerns Assessment Noted Time PHQ-9 Depression Total Score: 0 04/07/20 24 11:45 AM EDT documented as of this encounter Care Teams Fabrication Welder Relationship Specialty Start Date End Date Bridgette Gandhi MD [address] [place] [address] PCP - General Family Medicine 07/01/12 Ramón Bolaños, Bradley [address] [place] [address] Pharmacist Internal Medicine 11/18/23 documented as of this encounter
--- OUTSIDE RECORDS SUMMARY | 2024-09-13 06:51 | XMS_ITS | Encounter Summary ---
Author Organization [employer] Address [address] [facility] 7t [place] [address] Care Team Providers Care Manager Trading Name Role Phone Bridgette Gandhi MD Primary Care Provider [phone] Ramón Bolaños PharmD Unavailable [phone] Encounter Details Date Type Department Care Team (Late st Contact Info) Description 06/24/2024 Orders Only [facility] MEDICINE [address] [place], [place] [phone] Bridgette Gandhi MD 230 [place], [place] [phone] Social History Tobacco Use Types Packs/Day Years [...] Description 11/01/2024 10:30 AM EDT Office Visit [facility] MEDICINE [address] [place] [address] Bridgette Gandhi MD 230 [place] [address] 01/06/2025 10:00 AM EDT Office Visit [facility] ADULT DENTAL [address] [place] [address] Lydia Mac [address] [place] [address] documented as of this encounter Goals Goal [...] documented as of this encounter Care Teams Manager Trading Relationship Specialty Start Date End Date Bridgette Gandhi MD 230 [place] [address] PCP - General Family Medicine 07/01/12 Ramón Bolaños, MollyD 230 [place] [address] Pharmacist Internal Medicine 11/18/23 documented as of this encounter
--- OUTSIDE RECORDS SUMMARY | 2024-09-13 06:51 | XMS_ITS | Encounter Summary ---
Author Organization [facility] Address 75 [facility] 7t [place] [address] Care Team Providers Care Senior Mobile Application Developer Name Role Phone Bridgette Gandhi MD Primary Care Provider [phone] Ramón Bolaños PharmD Unavailable [phone] Reason for Referral * Consultation (Routine) - Closed Specialty Diagnoses / Procedures Referred By Jj bro Referred To Contact Orthopaedic Surgery Diagnoses Primary osteoarthritis of both hips Primary osteoarthritis of both knees Bridgette Gandhi MD [address] [place] [address] Phone: tel: fax: [facility] [address] [place] [address] Drive [address] [place], [place] Phone: tel: fax: Referral ID Status Reason Start Date Expiration Date V isits Requested Visits Authorized [id number] Closed Specialty Services Required 02/23/2024 02/22/2025 1 1 Encounter Details Date Type Department Care Team (Late st Contact Info) Description 02/23/2024 Orders Only [facility] MEDICINE [address] [place] [address] [phone] Bridgtete Gandhi MD [address] [place], [place] [phone] Primary osteoarthritis of both hips (Primary Dx); Primary osteoarthritis of both knees; Primary osteoarthritis involving multiple joints Social History Tobacco Use Types Packs/Day Years Used Date Smoking Tobacco: Former Cigarettes 0.5 63 Passive Smoke Exposure: Past Smokeless Tobacco: Never Comments:Cigarette smoking q uit date 10/12/2023 Alcohol Use Standard Drinks/Week Comments Not Currently 0 (1 standard drink = 0.6 oz pur e alcohol) Depression Answer Date Recorded Patient Health Questionnaire-9 Score 7 11/04/2023 Patient Health Questionnaire-9 Score 7 11/04/2023 Last PHQ-9: Questionnaire Data Not on file 0 11/04/2023 Housing Stability Answer Date Recorded What is [...] Answer Date Recorded Patient Health Questionnaire-2 Score 3 11/04/2023 Sex and Gender Information Value Date Recorded [...] Description 11/01/2024 10:30 AM EDT Office Visit [facility] MEDICINE [address] [place] [address] Bridgette Gandhi MD [address] [place], [place] [phone] 01/06/2025 10:00 AM EDT Office Visit [facility] ADULT DENTAL [address] [place] [address] Lydia Mac [address] [place] [address] Scheduled Referrals Name Type Priority Associated Diagnoses Orde r Schedule Referral to Orthopaedic Surgery Outpatient Referral Routine Primary osteoarthritis of both hips Primary osteoarthritis of both knees Expected: 02/23/2024 (Approximate), Expires: 02/22/2025 documented as of this encounter Goals Goal Patient Goal Type Associated Problems Recent Progress Patient-Stated? Author Blood Pressure < 140/90 Blood Pressure 130/60(2024 10:46 AM EST) No Ramón Bolaños PharmD Hemoglobin A1c < 7 Result Component 7(08/04/2024 11:32 AM EST) No Ramón Bolaños PharmD documented as of this encounter Visit Diagnoses Diagnosis Primary osteoarthritis of both hips- Primary Primary osteoarthritis of both knees Primary osteoarthritis involving multiple joints documented in this encounter Additional Health Concerns Assessment Noted Time PHQ-9 Depression Total Score: 7 11/04/19 10:54 AM EDT documented as of this encounter Care Teams Senior Mobile Application Developer Relationship Specialty Start Date End Date Bridgette Gandhi MD [address] [place] [address] PCP - General Family Medicine 07/01/12 Ramón Bolaños PharmD [address] [place] [address] Pharmacist Internal Medicine 11/18/23 documented as of this encounter
--- OUTSIDE RECORDS SUMMARY | 2024-09-13 06:51 | XMS_ITS | Encounter Summary ---
Author Organization [employer] Address 75 [facility] 7t [place] [address] Care Team Providers Care Can Doffer Name Role Phone Bridgette Gandhi MD Primary Care Provider [phone] Ramón Bolaños PharmD Unavailable [phone] Reason for Visit * Reason Onset Date Comments Medication Question 06/24/2024 Encounter Details Date Type Department Care Team (Late st Contact Info) Description 06/24/[address] [facility] MEDICINE [address] [place], [place] [phone] Bridgette Gandhi MD 230 [place], [place] [phone] Medication Question Social History Tobacco Use Types Packs/Day Years [...] encounter Miscellaneous Notes * Telephone Encounter - Bridgette Gandhi MD - 06/24/2024 11:11 AM EST Sent * Telephone Encounter - Lester Nur - 06/24/2024 8:32 AM EST Tc from pt requesting new Gluco meter. Pt states that the last one he had broke. If any questions contact pt at [phone] documented in this encounter Plan of Treatment Upcoming Encounters Date Type Department Care Team (Late st Contact Info) Description 11/01/2024 10:30 AM EDT Office Visit [facility] MEDICINE [address] [place] [address] Bridgette Gandhi MD 230 [place] [address] 01/06/2025 10:00 AM EDT Office Visit [facility] ADULT DENTAL 230 [place] [address] Lydia Mac 230 [place] [address] documented as of this encounter Goals Goal [...] documented as of this encounter Care Teams Can Doffer Relationship Specialty Start Date End Date Bridgette Gandhi MD 230 [place] [address] PCP - General Family Medicine 07/01/12 Ramón Bolaños PharmD [address] [place] [address] Pharmacist Internal Medicine 11/18/23 documented as of this encounter
--- OUTSIDE RECORDS SUMMARY | 2024-09-13 06:51 | XMS_ITS | Encounter Summary ---
Author Organization [employer] [facility] Address [address] [place] [address] 7t [place] [address] Care Team Providers Care Shear Helper Name Role Phone Bridgette Gandhi MD Primary Care Provider [phone] Ramón Bolaños PharmD Unavailable [phone] Encounter Details Date Type Department Care Team (Late st Contact Info) Description 07/31/2022 Abstract [facility] ADULT DENTAL [address] [place], [place] [phone] Lydia Mac [address] [place] [address] Social History Tobacco Use Types Packs/Day Years Used Date Smoking Tobacco: Never Assessed Sex and Gender Information Value Date Recorded [...] 11/01/2024 10:30 AM EDT Office Visit [facility] MEDICINE 230 [place], [place] [phone] Bridgette Gandhi MD 230 [place], [place] [phone] 01/06/2025 10:00 AM EDT Office Visit [facility] ADULT DENTAL [address] [place], [place] [phone] Lydia Mac [address] [place] [address] documented as of this encounter Visit Diagnoses Not on filedocumented in this encounter Care Teams Shear Helper Relationship Specialty Start Date End Date Bridgette Gandhi MD 230 [place] [address] PCP - General Family Medicine 07/01/12 Ramón Bolaños, Bradley [address] [place] [address] Pharmacist Internal Medicine 11/18/23 documented as of this encounter
--- OUTSIDE RECORDS SUMMARY | 2024-09-13 06:51 | XMS_ITS | Encounter Summary ---
Author Organization [employer] [facility] Address 75 [facility] 7t [place] [address] Care Team Providers Care Grapple Crew Leader Name Role Phone Bridgette Gandhi MD Primary Care Provider [phone] Ramón Bolaños PharmD Unavailable [phone] Reason for Visit * Reason Onset Date Comments ER Follow-up 05/26/2024 Nurse Triage 05/26/2024 Encounter Details Date Type Department Care Team (Late st Contact Info) Description 05/26/2024 Telephone [facility] MEDICINE [address] [place], [place] [phone] Bridgette Gandhi MD 230 [place] [address] ER Follow-up; Nurse Triage Social History Tobacco Use Types Packs/Day Years [...] encounter Miscellaneous Notes * Telephone Encounter - Danii Hope RN - 05/26/2024 2:31 PM EDT Please assist with obtaining discharge summary for [facility] visit on 05/25/24 for provider review prior to upcoming appointment. Future Appointments Date Time Provider Department Center 05/27/2024 8:45 AM [address] [facility] 01/11/2025 10:00 AM Susy Dixon PharmD [facility] * Telephone Encounter - Danii Hope RN - 05/26/2024 2:22 PM EDT Per chart review. Pt seen by pain management today. Pt to have L3-L4 transforaminal epidural steroid injection on the left. I will schedule this patient for this procedure. Call returned to Bharathi Angel to triage below. Per pt was given some pain medication and patches but does not provide relief. Per pt needs something for pain until has appt for injection. Pt states pain management recommended that pt contact PCP to request interim Oral pain meds untilappt for injection. Pt agrees to telehealth appt tomorrow to discuss with a team provider. Protocol Used: Recent Medical Visit for Illness Follow-up Call (Adult) Protocol-Based Disposition: See in Office or Video Visit Today or Tomorrow Future Appointments Date Time Provider Department Center 05/27/2024 8:45 AM Jeremias Gong MD [facility] 01/11/2025 10:00 AM Susy Dixon PharmD MEDICINE [facility] Insurance verified as active per Real Time Eligibility in [employer]. Video visit offered and caller accepted Positive Triage Question: * Patient wants to be seen * All higher-acuity triage questions were negative Care Advice Discussed: * Continue Treatment * Reasons To Call Back - You become worse * Telephone Encounter - Russell Dumas - 05/26/2024 2:13 PM EDT Patient calling to report ED visit on : Date: 05/25/24 Hospital: [facility] Seen for: Severe hip and thigh pain - Symptoms: Leg Pain - Not From Injury, Hip Pain - Not From Injury Outcome: Talk to a nurse or provider within 15 minutes Reason: Can't walk (unless normally can't walk) documented in this encounter Plan of Treatment Upcoming Encounters Date Type Department Care Team (Late st Contact Info) Description 11/01/2024 10:30 AM EDT Office Visit [facility] MEDICINE [address] [place] [address] Bridgette Gandhi MD 230 [place] [address] 01/06/2025 10:00 AM EDT Office Visit [facility] ADULT DENTAL [address] [place] [address] Lydia Mac [address] [place] [address] documented as of this encounter Goals Goal [...] documented as of this encounter Care Teams Grapple Crew Leader Relationship Specialty Start Date End Date Bridgette Gnadhi MD 230 [place] [address] PCP - General Family Medicine 07/01/12 Ramón Bolaños PharmD 230 [place] [address] Pharmacist Internal Medicine 11/18/23 documented as of this encounter
--- OUTSIDE RECORDS SUMMARY | 2024-09-13 06:51 | XMS_ITS | Encounter Summary ---
Author Organization [facility] Address [address] [place] [address] 7t [place] [address] Care Team Providers Care Tester Printed Circuit Boards Name Role Phone Bridgette Gandhi MD Primary Care Provider Ramón Bolaños PharmD Unavailable [phone] Reason for Referral * Consultation (Routine) - Pending Review Specialty Diagnoses / Procedures Referred By Jj bro Referred To Contact Pulmonary Disease Diagnoses Chronic obstructive pulmonary disease, unspecified COPD type (CMS/HCC) Obstructive sleep apnea syndrome Bridgette Gandhi MD [address] [place] [address] Phone: tel: fax: [facility] Pulmonary [address] [place], [place] Phone: tel: fax: Referral ID Status Reason Start Date Expiration Date Visits Requested Visits Authorized [id number] Pending Review Specialty Services Required 09/22/2023 09/21/2024 1 1 Scheduling Instructions [facility] pulmonology Encounter Details Date Type Department Care Team (Late st Contact Info) Description 09/22/2023 Orders Only [facility] MEDICINE [address] [place], [place] [phone] Bridgette Gandhi MD [address] [place], [place] [phone] Chronic obstructive pulmonary disease, unspecified COPD type (CMS/HCC) (Primary Dx); Obstructive sleep apnea syndrome Social History Tobacco Use Types Packs/Day Years Used Date Smoking Tobacco: Every Day Cigarettes 0.5 63 Passive Smoke Exposure: Current Smokeless Tobacco: Never Alcohol Use Standard Drinks/Week Comments Not Currently 0 (1 standard drink = 0.6 oz pur e alcohol) Depression Answer Date Recorded Patient Health Questionnaire-9 Score 5 09/11/2022 Housing Stability Answer Date Recorded What is your housing situation today? I have bertrand bender 06/01/[address] you li ve. Do you have problems with any of the following? None of the above 06/01/2023 Food Insecurity Answer Date Recorded Within the past 12 months, y ou worried that your food would run out before you got money to buy more: Never True 06/01/2023 Within the past 12 months,th e food you bought just didn't last and you didn't have enough money to get more: Never True Transportation Answer Date Recorded In the past 12 months, has l ack of transportation kept you from medical appts, meetings, work or from getting things needed for daily living? No 06/01/2023 Utilities Answer Date Recorded In the past 12 months, has t he electric, gas, oil or water company threatened to shut off services in your home? No 06/01/2023 Depression Answer Date Recorded Patient Health Questionnaire-2 [...] Description 11/01/2024 10:30 AM EDT Office Visit [facility] MEDICINE [address] [place] [address] Bridgette Gandhi MD [address] [place] [address] 01/06/2025 10:00 AM EDT Office Visit [facility] ADULT DENTAL [address] [place] [address] Lydia Mac [address] [place] [address] Scheduled Referrals Name Type Priority Associated Diagnoses Orde r Schedule Referral to Pulmonology Outpatient Referral Routine Chronic obstructive pulmonary disease, unspecified COPD type (CMS/HCC) Obstructive sleep apnea syndrome Expected: 09/22/2023 (Approximate), Expires: 09/22/2024 documented as of this encounter Visit Diagnoses Diagnosis Chronic obstructive pulmonary disease, unspecified COPD type (CMS/HCC)- Primary Obstructive sleep apnea syndrome Obstructive sleep apnea (adult) (pediatric) documented in this encounter Additional Health Concerns Assessment Noted Time PHQ-9 Depression Total Score: 5 09/11/19 23 10:25 AM EST documented as of this encounter Care Teams Tester Printed Circuit Boards Relationship Specialty Start Date End Date Bridgette Gandhi MD [address] [place] [address] PCP - General Family Medicine 07/01/12 Ramón Bolaños, Bradley [address] [place] [address] Pharmacist Internal Medicine 11/18/23 documented as of this encounter
--- OUTSIDE RECORDS SUMMARY | 2024-09-13 06:51 | XMS_ITS | Encounter Summary ---
Author Organization [employer] Address 75 [facility] 7t [place] [address] Care Team Providers Care Brownell Operator Name Role Phone Bridgette Gandhi MD Primary Care Provider [phone] Ramón Bolaños PharmD Unavailable [phone] Encounter Details Date Type Department Care Team (Late st Contact Info) Description 08/25/2024 Telephone [facility] MEDICINE 230 [place], [place] [phone] Bridgette Gandhi MD 230 [place], [place] [phone] Social History Tobacco Use Types Packs/Day Years [...] Telephone Encounter - Bridgette Gandhi MD - 08/25/2024 3:02 PM EST Called Urology office and asked about patient's upcoming procedure. The surgical appliance fitter stated that patient is scheduled for TURP-bladder removal, and there will be no biopsy or prostatectomy during the procedure. Informed patient's daughter. documented in this encounter Plan of Treatment Upcoming Encounters Date Type Department Care Team (Late st Contact Info) Description 11/01/2024 10:30 AM EDT Office Visit [facility] MEDICINE [address] [place] [address] Bridgette Gandhi MD [address] [place] [address] 01/06/2025 10:00 AM EDT Office Visit [facility] ADULT DENTAL [address] [place] [address] Lydia Mac [address] [place] [address] documented as of this encounter Goals Goal [...] documented as of this encounter Care Teams Brownell Operator Relationship Specialty Start Date End Date Bridgette Gandhi MD [address] [place] [address] PCP - General Family Medicine 07/01/12 Ramón Bolaños PharmD [address] [place] [address] Pharmacist Internal Medicine 11/18/23 documented as of this encounter
--- OUTSIDE RECORDS SUMMARY | 2024-09-13 06:51 | XMS_ITS | Encounter Summary ---
Author Organization [employer] Address 75 [facility] 7t [place] [address] Care Team Providers Care Admission Nurse Coordinator Name Role Phone Bridgette Gandhi MD Primary Care Provider [phone] Ramón Bolaños PharmD Unavailable [phone] Reason for Visit * Reason Comments Med Refill Encounter Details Date Type Department Care Team (Late st Contact Info) Description 06/07/2023 Refill [facility] [address] [place], [place] [phone] Bridgette Gandhi MD 230 [place], [place] [phone] Social History Tobacco Use Types Packs/Day Years Used Date Smoking Tobacco: Every Day Cigarettes 0.5 63 Passive Smoke Exposure: Past Smokeless Tobacco: Never Alcohol Use Standard Drinks/Week [...] Description 11/01/2024 10:30 AM EDT Office Visit [facility] MEDICINE [address] [place] [address] Bridgette Gandhi MD [address] [place] [address] 01/06/2025 10:00 AM EDT Office Visit [facility] ADULT DENTAL [address] [place] [address] BubbaGregLydia [address] [place] [address] documented as of this encounter Visit Diagnoses Not on filedocumented in this encounter Additional Health Concerns Assessment Noted Time PHQ-9 Depression Total Score: 5 09/11/19 23 10:25 AM EST documented as of this encounter Care Teams Admission Nurse Coordinator Relationship Specialty Start Date End Date Bridgette Gandhi MD [address] [place] [address] PCP - General Family Medicine 07/01/12 Ramón Bolaños, PharmD [address] [place] [address] Pharmacist Internal Medicine 11/18/23 documented as of this encounter
--- OUTSIDE RECORDS SUMMARY | 2024-09-13 06:51 | XMS_ITS | Encounter Summary ---
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 No / Unsure 09/24/2022 10:02 AM EST documented as of this encounter Plan of Treatment Upcoming Encounters Date Type Department Care Team (Late Contact Info) Description 11/01/2024 10:30 AM EDT Office Visit [facility] MEDICINE [address] [place] [address] Bridgette Gandhi MD 230 [place] [address] 01/06/2025 10:00 AM EDT Office Visit [facility] ADULT DENTAL [address] [place], [place] [phone] Greg Macaris [address] [place] [address] documented as of this encounter Visit Diagnoses Diagnosis Spinal stenosis of lumbar region with neurogenic claudication- Primary documented in this encounter Additional Health Concerns Assessment Noted Time PHQ-9 Depression Total Score: 5 09/11/19 23 10:25 AM EST documented as of this encounter Care Teams Electromedical Equipment Technician Relationship Specialty Start Date End Date Br[place] [address] PCP - General Family Medicine 07/01/12 Ramón Bolaños, PharmD [address] [place] [address] [phone] Pharmacist Internal Medicine 11/18/23 documented as of this encounter
--- OUTSIDE RECORDS SUMMARY | 2024-09-13 06:51 | XMS_ITS | Encounter Summary ---
Author Organization [employer] Address 75 [facility] 7t [place] [address] Care Team Providers Care Netsuite Consultant Name Role Phone Bridgette Gandhi MD Primary Care Provider [phone] Ramón Bolaños PharmD Unavailable [phone] Reason for Visit * Reason Onset Date Comments Referral 08/27/2023 Encounter Details Date Type Department Care Team (Late st Contact Info) Description 08/27/2023 Telephone [facility] MEDICINE 230 [place], [place] [phone] Bridgette Gandhi MD 230 [place], [place] [phone] Referral Social History Tobacco Use Types Packs/Day Years [...] Telephone Encounter - Bridgette Gandhi MD - 09/04/2023 9:52 AM EST Referral done. Patient was seen yesterday for hip pain. * Telephone Encounter - David Vidal - 09/02/2023 9:24 AM EST Tc from patients daughter requesting the status in regards to message below appt is on 09/03/2023 for the knee and patient is going to receive Cortizone shots for pain needs a new referral * Telephone Encounter - Russell Dumas - 08/27/2023 1:13 PM EST TC from pt's daughter/DATA REPORTING ANALYST requesting a renewal of Referral Date of original referral: 09/11/23 Location: [facility] (unsure of exact location) Date: 09/03/23 Time: 3:15 Fax: N/A Specialty: Orthopedic documented in this encounter Plan of Treatment Upcoming Encounters Date Type Department Care Team (Late st Contact Info) Description 11/01/2024 10:30 AM EDT Office Visit [facility] MEDICINE 230 [place] [address] Bridgette Gandhi MD [address] [place] [address] 01/06/2025 10:00 AM EDT Office Visit [facility] ADULT DENTAL [address] [place] [address] Bubba, Lydia [address] [place] [address] documented as of this encounter Visit Diagnoses Not on filedocumented in this encounter Additional Health Concerns Assessment Noted Time PHQ-9 Depression Total Score: 5 09/11/19 23 10:25 AM EST documented as of this encounter Care Teams Netsuite Consultant Relationship Specialty Start Date End Date Bridgette Gandhi MD [address] [place] [address] PCP - General Family Medicine 07/01/12 Ramón Bolaños, MollyD [address] [place] [address] [phone] Pharmacist Internal Medicine 11/18/23 documented as of this encounter
--- OUTSIDE RECORDS SUMMARY | 2024-09-13 06:51 | XMS_ITS | Encounter Summary ---
Author Organization [employer] [facility] Address [address] [facility] 7t [place] [address] Care Team Providers Care Cable Television Program Director Name Role Phone Bridgette Gandhi MD Primary Care Provider [phone] Ramón Bolaños PharmD Unavailable [phone] Encounter Details Date Type Department Care Team (Latest Contact Info) Description 06/20/2022 Abstract [facility] CONVERSIONS Dental, Provider, DDS Social History Tobacco Use Types Packs/Day Years [...] Description 11/01/2024 10:30 AM EDT Office Visit [facility] MEDICINE [address] [place] [address] Bridgette Gandhi MD [address] [place] [address] 01/06/2025 10:00 AM EDT Office Visit [facility] ADULT DENTAL [address] [place] [address] Lydia Mac [address] [place] [address] documented as of this encounter Visit Diagnoses Not on filedocumented in this encounter Care Teams Cable Television Program Director Relationship Specialty Start Date End Date Bridgette Gandhi MD [address] [place], [place] [phone] PCP - General Family Medicine 07/01/12 Ramón Bolaños, MollyD [address] [place] [address] Pharmacist Internal Medicine 11/18/23 documented as of this encounter
--- OUTSIDE RECORDS SUMMARY | 2024-09-13 06:51 | XMS_ITS | Encounter Summary ---
Author Organization [employer] Address [address] 7t [place] [address] Care Team Providers Care Water Quality Control Engineer Name Role Phone Bridgette Gandhi MD Primary Care Provider [phone] Ramón Bolaños PharmD Unavailable [phone] Reason for Visit * Reason Onset Date Comments dme recliner 08/19/2024 Encounter Details Date Type Department Care Team (Late st Contact Info) Description 08/19/2024 Telephone [facility] MEDICINE [address] [place] [address] Florida Larson [place] dme recliner Social History Tobacco Use Types Packs/Day Years [...] Telephone Encounter - Florida Larson MA - 09/01/2024 11:57 AM EST A new order was sumbitted through [employer]. (order number [id number] * Telephone Encounter - Russell Dumas - 08/23/2024 4:21 PM EST Tc from [facility] stating they're unable to complete script for recliner and it would have to be sent to a different pharmacy. * Telephone Encounter - [place] Larson [place] - 08/19/2024 10:14 AM EST ..DME for Recliner signed and faxed to [employer] [facility] . Confirmation received and sent to scan. If patient calls to check status on above, please advise them to contact [employer] [facility] at [phone]. documented in this encounter Plan of Treatment Upcoming Encounters Date Type Department Care Team (Late st Contact Info) Description 11/01/2024 10:30 AM EDT Office Visit [facility] MEDICINE [address] [place] [address] Bridgette Gandhi MD [address] [place] [address] 01/06/2025 10:00 AM EDT Office Visit [facility] ADULT DENTAL [address] [place] [address] Bubba, Lydia [address] [place] [address] documented as of this encounter Goals Goal [...] documented as of this encounter Care Teams Water Quality Control Engineer Relationship Specialty Start Date End Date Bridgette Gandhi MD [address] [place] [address] PCP - General Family Medicine 07/01/12 Ramón Bolaños PharmD [address] [place] [address] Pharmacist Internal Medicine 11/18/23 documented as of this encounter
--- OUTSIDE RECORDS SUMMARY | 2024-09-13 06:51 | XMS_ITS | Encounter Summary ---
Author Organization [employer] Address [address] 7t [place] [address] Care Team Providers Care Medical Field Representative Name Role Phone Bridgette Gandhi MD Primary Care Provider [phone] Ramón Bolaños PharmD Unavailable [phone] Encounter Details Date Type Department Care Team (Late st Contact Info) Description 08/22/2024 Abstract [facility] MEDICINE [address] [place], [place] [phone] Florida Larson [place] Social History Tobacco Use Types Packs/Day Years [...] Description 11/01/2024 10:30 AM EDT Office Visit [facility] MEDICINE [address] [place] [address] Bridgette Gandhi MD [address] [place] [address] 01/06/2025 10:00 AM EDT Office Visit [facility] ADULT DENTAL [address] [place] [address] Bubba, Lydia [address] [place] [address] documented as of this encounter Goals Goal Patient Goal Type Associated Problems Recent Progress Patient-Stated? Author Blood Pressure < 140/90 Blood Pressure 130/60(2024 10:46 AM EST) No Ramón Bolaños, Bradley Hemoglobin A1c < 7 Result Component 7(08/04/2024 11:32 AM EST) No Ramón Bolaños PharmD documented as of this encounter Procedures Procedure Name Priority Date/Time Associated Diagnosis Comments DIABETES EYE EXAM Routine 06/29/2024 documented in this encounter Results * Diabetes Eye Exam (06/29/2024) Eye Exam Normal Normal 06/29/2024 us Historical Provider HEALTH MAINTENANCE Final Result documented in this encounter Visit Diagnoses Not on filedocumented in this encounter Additional Health Concerns Assessment Noted Time PHQ-9 Depression Total Score: 0 04/07/20 24 11:45 AM EDT documented as of this encounter Care Teams Medical Field Representative Relationship Specialty Start Date End Date Bridgette Gandhi MD [address] [place] [address] PCP - General Family Medicine 07/01/12 Ramón Bolaños, Bradley [address] [place] [address] Pharmacist Internal Medicine 11/18/23 documented as of this encounter
--- OUTSIDE RECORDS SUMMARY | 2024-09-13 06:51 | XMS_ITS | Encounter Summary ---
Author Organization [employer] Address [address] [facility] 7t [place] [address] Care Team Providers Care Group Managing Director Name Role Phone Bridgette Gandhi MD Primary Care Provider [phone] Ramón Bolaños PharmD Unavailable Reason for Visit * Reason Comments Med Refill Encounter Details Date Type Department Care Team (Late st Contact Info) Description 03/10/2024 Refill [facility] MEDICINE [address] [place], [place] [phone] Bridgette Gandhi MD [address] [place], [place] [phone] Social History Tobacco Use Types Packs/Day Years [...] the past 12 months, has t he [employer], gas, oil or water company threatened to [...] 11/01/2024 10:30 AM EDT Office Visit [facility] MEDICINE [address] [place] [address] Bridgette Gandhi MD [address] [place] [address] 01/06/2025 10:00 AM EDT Office Visit [facility] ADULT DENTAL [address] [place] [address] Lydia Mac [address] [place] [address] documented as of this encounter Goals Goal [...] Time PHQ-9 Depression Total Score: 7 11/04/19 24 10:54 AM EDT documented as of this encounter Care Teams Group Managing Director Relationship Specialty Start Date End Date Bridgette Gandhi MD [address] [place] [address] PCP - General Family Medicine 07/01/12 Ramón Bolaños, Bradley [address] [place] [address] Pharmacist Internal Medicine 11/18/23 documented as of this encounter
--- OUTSIDE RECORDS SUMMARY | 2024-09-13 06:51 | XMS_ITS | Encounter Summary ---
Author Organization [employer] Address [address] 7t [place] [address] Care Team Providers Care Metal Refiner Name Role Phone Bridgette Gandhi MD Primary Care Provider [phone] Ramón Bolaños PharmD Unavailable [phone] Encounter Details Date Type Department Care Team (Late st Contact Info) Description 09/04/2023 Orders Only [facility] MEDICINE [address] [place], [place] [phone] Bridgette Gandhi MD [address] [place], [place] [phone] Chronic pain of both knees (Primary Dx) Social History Tobacco Use Types [...] Office Visit [facility] MEDICINE [address] [place] [address] Bridgette Gandhi MD [address] [place] [address] 01/06/2025 10:00 AM EDT Office Visit [facility] ADULT DENTAL [address] [place] [address] Bubba, Lydia [address] [place] [address] documented as of this encounter Visit Diagnoses Diagnosis Chronic pain of both knees- Primary documented in this encounter Additional Health Concerns Assessment Noted Time PHQ-9 Depression Total Score: 5 09/11/19 23 10:25 AM EST documented as of this encounter Care Teams Metal Refiner Relationship Specialty Start Date End Date Bridgette Gandhi MD [address] [place] [address] PCP - General Family Medicine 07/01/12 Ramón Bolaños, MollyD [address] [place] [address] Pharmacist Internal Medicine 11/18/23 documented as of this encounter
--- OUTSIDE RECORDS SUMMARY | 2024-09-13 06:51 | XMS_ITS | Clinical Summary ---
Demographics Address [address] [facility] [place] [address] Mobile Phone Home Phone Mobile Phone Preferred Language es Marital Status Unknown Muslim Affiliation Unknown Race Unknown Ethnic Group Unknown Author Organization [facility] [address] [place] [phone] Phone Care Team Providers Care Fundraising Assistant Name Role Phone Bridgette Gandhi MD Primary Care Provider [phone] Allergies Active Allergy Reactions Criticality Noted Date Comments Penicillins Other (see comments) 01/28/2024 Medications atorvastatin (LIPITOR) 40 MG tablet Take 40 mg by mouth at bed time Active doxazosin (CARDURA) 8 MG tablet Take 4 mg by mouth at bed time Active finasteride (PROSCAR) 5 MG tablet Take 5 mg by mouth Active lisinopril 40 MG tablet Take 40 mg by mouth at bed time Active metFORMIN XR (GLUCOPHAGE-XR) 500 MG 24 hr tablet TAKE 1 TABLET BY MOUTH EVERY EVENING WITH FOOD Active sertraline (ZOLOFT) 25 MG tablet Take 25 mg by mouth Active torsemide (DEMADEX) 20 MG tablet Take 20 mg by mouth Active Cholecalciferol (Vitamin D3) 25 MCG (1000 UT) capsule Take by mouth Active hydrALAZINE 50 MG tablet Take 50 mg by mouth in the morning and 50 mg in the evening. Take after meals. Active Active Problems Problem Noted Date Diagnosed Date Type 2 diabetes mellitus 01/27/2024 Hyperlipidemia 01/27/2024 History of calculus of kidney 01/27/2024 Essential hypertension 01/27/2024 Prostate specific antigen above reference range 01/27/2024 Encounters Date Type Department Care Team Description 07/28/2024 1:00 PM EST Office Visit [facility] [address] [place] [phone] Gómez Colunga MD Hypertension (Primary Dx); Type 2 diabetes mellitus without complication (HCC) from Last 3 Months Social History Tobacco Use Types Packs/Day Years Used Date Smoking Tobacco: Never Assessed Sex and Gender Information Value Date Recorded Sex Assigned at Not on file Legal Sex Male 4:57 PM EST Gender Identity Not on file Sexual Orientation Not on file Last Filed Vital Signs Vital Sign Reading Time Taken Comments Blood Pressure 128/67 07/28/2024 12:45 PM EST Pulse 65 07/28/2024 12:45 PM EST Temperature - - Respiratory Rate - - Oxygen Saturation 93% 07/28/2024 12:45 PM EST Inhaled Oxygen Concentration - - Weight 111 kg (243 lb 12.8 oz) 07/28/2024 12:45 PM EST Height - - Body Mass Index - - Plan of Treatment Upcoming Encounters Date Type Department Care Team (Late st Contact Info) Description 02/02/2025 1:00 PM EDT Office Visit [facility] [address] [place] [address] Gómez Colunga MD [address] [facility] [address] [place] [phone] Health Maintenance Due Date Last Done Comments Diabetes: Ophthalmology Exam 09/17/2020 Diabetes: Pedal Pulse Checked 09/17/2020 Diabetes: Sensory Foot Exam 09/17/2020 Diabetes: Visual Foot Exam 09/17/2020 Influenza Vaccine (#1) 2024 0, 06/13/2019, 05/24/2018, Additional history exists Diabetes: Hemoglobin A1C 07/08/20242 024, 01/04/2024, 11/18/2023 Pneumococcal Vaccine: 65+ Years Completed 04/13/2015, 08/08/2013, 05/07/2006 Hepatitis B Vaccine Aged Out 09/28/2017, 06/29/2017, 03/24/2017 No longer eligible based on patient's age to complete this topic Insurance [facility] DUAL COMPLETE ([id number]) [facility] DUAL COMPLETE ([id number]) Care Teams Fundraising Assistant Relationship Specialty Start Date End Date Bridgette Gandhi MD [address] [place] [address] PCP - General 08/27/20
--- OUTSIDE RECORDS SUMMARY | 2024-09-13 06:51 | XMS_ITS | Encounter Summary ---
Author Organization [employer] [facility] Address [address] [facility] 7t [place] [address] Care Team Providers Care Fish Bait Processing Supervisor Name Role Phone Bridgette Gandhi MD Primary Care Provider [phone] Ramón Bolaños PharmD Unavailable [phone] Encounter Details Date Type Department Care Team (Late st Contact Info) Description 06/26/2023 Abstract [facility] ADULT DENTAL [address] [place] [address] Amarjit Foster DDS [address] [place] [address] Social History Tobacco Use Types Packs/Day Years [...] Description 11/01/2024 10:30 AM EDT Office Visit [facility] MEDICINE [address] [place] [address] Bridgette Gandhi MD [address] [place] [address] 01/06/2025 10:00 AM EDT Office Visit [facility] ADULT DENTAL [address] [place] [address] Lydia Mac [address] [place] [address] documented as of this encounter Visit Diagnoses Not on filedocumented in this encounter Additional Health Concerns Assessment Noted Time PHQ-9 Depression Total Score: 5 09/11/19 23 10:25 AM EST documented as of this encounter Care Teams Fish Bait Processing Supervisor Relationship Specialty Start Date End Date Bridgette Gandhi MD [address] [place] [address] PCP - General Family Medicine 07/01/12 Ramón Bolaños, Bradley [address] [place] [address] Pharmacist Internal Medicine 11/18/23 documented as of this encounter
--- OUTSIDE RECORDS SUMMARY | 2024-09-13 06:51 | XMS_ITS | Encounter Summary ---
Author Organization [employer] Address [address] [facility] 7t [place] [address] Care Team Providers Care Assistant Tennis Coach Name Role Phone Bridgette Gandhi MD Primary Care Provider [phone] Ramón Bolaños PharmD Unavailable [phone] Encounter Details Date Type Department Care Team (Late st Contact Info) Description 08/28/2023 Orders Only [facility] MEDICINE [address] [place], [place] [phone] Bridgette Gandhi MD [address] [place], [place] [phone] Social History Tobacco Use Types Packs/Day Years [...] Description 11/01/2024 10:30 AM EDT Office Visit [facility] MEDICINE [address] [place] [address] Bridgette Gandhi MD [address] [place] [address] 01/06/2025 10:00 AM EDT Office Visit [facility] ADULT DENTAL [address] [place] [address] Lydia Mac [address] [place] [address] documented as of this encounter Visit Diagnoses Not on filedocumented in this encounter Additional Health Concerns Assessment Noted Time PHQ-9 Depression Total Score: 5 09/11/19 23 10:25 AM EST documented as of this encounter Care Teams Assistant Tennis Coach Relationship Specialty Start Date End Date Bridgette Gandhi MD [address] [place] [address] PCP - General Family Medicine 07/01/12 Ramón Bolaños, MollyD [address] [place] [phone] Pharmacist Internal Medicine 11/18/23 documented as of this encounter
--- OUTSIDE RECORDS SUMMARY | 2024-09-13 06:51 | XMS_ITS | Encounter Summary ---
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); Odontalgia Social History Tobacco Use Types Packs/Day Years [...] the past 12 months, has t he [employer], gas, oil or water [employer] threatened to shut off services in your [...] Pressure 130/60 08/24/2024 10:46 AM EST Pulse - - Temperature - - Respiratory Rate - - Oxygen Saturation - - Inhaled Oxygen Concentration - - Weight - - Height - - Body Mass Index - - documented in this encounter Progress Notes * Nyla Foster DDS - 08/24/2024 11:30 AM EST Dental procedures in this visit [id number] - CASE PRESENTATION, DETAILED AND EXTENSIVE TREATMENT PLANNING (Completed) Service provider: Nyla Foster DDS Billing provider: Nyla Foster DDS [id number] - INTRAORAL - PERIAPICAL FIRST RADIOGRAPHIC IMAGE (Completed) Service provider: Nyla Foster DDS Billing provider: Nyla Foster DDS [id number] - PALLIATIVE (EMERGENCY) TREATMENT OF DENTAL PAIN - MINOR PROCEDURE (Completed) Service provider: Nyla Foster DDS Billing provider: Nyla Foster DDS Patient ID: Bharathi Angel is a 78 y.o. male. Time Out: Timeout Date: 08/24/24, Timeout Time: 1047 (Dental Emergency Exam) Location: [facility] Tooth: Mandible and #32 Procedure: X-rays and Emergency Verified the above with patient, diploma dental assistant, and provider. Confirmed via patient's chart, intraorally and by radiographs. Legal Executive: not applicable Chief Complaint Patient presents with Dental Pain Medical Hx: Vitals: Blood pressure 130/60. Past Medical History: Diagnosis Date Allergies Arthritis Asthma Diabetes mellitus ([facility]) High cholesterol Hypertension Periodontal disease Medications: Outpatient Encounter Medications as of 08/24/2024 Medication Sig Dispense Refill albuterol 108 (90 Base) MCG/ACT inhaler Inhale 2 puffs every 6 (six) hours if needed for wheezing or shortness of breath. 18 g 3 Anoro Ellipta 62.5-25 MCG/ACT aerosol powder Inhale 1 puff in the morning. atorvastatin (Lipitor) 40 MG tablet TAKE 1 TABLET BY MOUTH AT BEDTIME 30 tablet 11 Blood Glucose Monitoring Suppl (Blood Glucose Monitor System) w/Device kit Check sugar once daily and as needed 1 kit 0 carvedilol (Coreg) 25 MG tablet Take 0.5 tablets by mouth 2 times daily. cholecalciferol (Vitamin D-3) 25 MCG tablet TAKE 1 TABLET BY MOUTH EVERY MORNING 90 tablet 3 cyclobenzaprine (Flexeril) 5 MG tablet TAKE 1 TABLET BY MOUTH EVERY 8 HOURS NEEDED FOR PAIN (PAIN SCALE 7-10) FOR 5 DAYS Deep Sea Nasal [place] 0.65 % nasal spray USE 1-2 SPRAYS IN EACH NOSTRIL EVERY 2 TO 3 HOURS NEEDEDFOR NASAL CONGESTION 30 mL 1 Diclofenac Sodium 1 % gel Apply to affected area twice a day 100 g 0 doxazosin (Cardura) 8 MG tablet Take 0.5 tablets (4 mg) by mouth at bedtime. 30 tablet 11 finasteride (Proscar) 5 MG tablet TAKE 1 TABLET BY MOUTH EVERY MORNING 90 tablet 3 fluticasone (Flonase) 50 MCG/ACT nasal spray INSTILL 1-2 SPRAYS IN EACH NOSTRIL ONCE DAILY IN THE MORNING 16 g 2 hydrALAZINE (Apresoline) 50 MG tablet TAKE 1 TABLET BY MOUTH TWICE DAILY IN THE MORNING AND IN THE EVENING ipratropium (Atrovent) 0.03 % nasal spray Administer 2 sprays in each nostril at night 30 mL 12 Lancets (OneTouch Delica Plus [id number]) [facility] TEST BLOOD SUGAR TWICE DAILY 100 each 11 latanoprost (Xalatan) 0.005 % ophthalmic solution INSTILL 1 DROP IN RIGHT EYE AT BEDTIME lidocaine (Lidoderm) 5 % patch APPLY 1 PATCH TOPICALLY TO SKIN, LEAVE ON FOR 12 HOURS AND OFF FOR 12 HOURS DIRECTED (APPLY TO MOST PAINFUL AREA) lisinopril 40 MG tablet TAKE 1 TABLET BY MOUTH EVERY EVENING 90 tablet 3 loratadine (Claritin) 10 MG tablet TAKE 1 TABLET BY MOUTH EVERY DAY 30 tablet 11 magnesium oxide (Mag-Ox) 400 (240 Mg) MG tablet Take 400 mg by mouth Once per day. At bedtime. (Hold if loose stool occurs) metFORMIN XR (Glucophage-XR) 500 MG 24 hr tablet TAKE 1 TABLET BY MOUTH EVERY EVENING WITH FOOD 30 tablet 11 OneTouch Ultra Test test strip TEST BLOOD SUGAR TWICE DAILY 50 strip 11 sertraline (Zoloft) 25 MG tablet Take 25 mg by mouth in the morning. torsemide (Demadex) 20 MG tablet Take 20 mg by mouth in the morning. [DISCONTINUED] acetaminophen (Tylenol) 325 MG tablet Patient reports purchasing OTC acetaminophen (Tylenol) 500 MG tablet Take 1 tablet (500 mg) by mouth every 6 (six) hours if neededfor mild pain for up to 20 doses. 20 tablet 0 clindamycin (Cleocin) 300 MG capsule Take 1 capsule (300 mg) by mouth 4 times daily for 7 days. 28 capsule 0 [DISCONTINUED] fluticasone (Flonase) 50 MCG/ACT nasal spray INSTILL 1-2 SPRAYS IN EACH NOSTRIL ONCEDAILY IN THE MORNING 16 g 2 No facility-administered encounter medications on file as of 08/24/2024. Subjective: Pain: constant Duration: 3 days Objective: Tooth: #32 Radiographs Taken: PA(s) Radiographic Findings: Decay, Periapical Radiolucency, and three units bridge Clinical Findings: Erythematous gingiva on #32 Swelling: Tenderness and Intraoral swelling Endo Testing: N/A Perio: BOP Other Findings: Three units bridge, galvanic sock lately . Pt wanting a second opinion, before attempting extraction. Diagnosis: Cervical caries Assessment/Plan: EOE X Ray Prescription to control pain and infection Prescriptions: Sent to [facility] on file Pt tolerated procedure well, all questions answered. Dismissed in good condition. NV: RCT / perio consult Canal Boat Captain: Kevin Santos Dentist: Nyla Foster DDS documented in this encounter Miscellaneous Notes * Addendum Note - Nyla Foster DDS - 08/24/2024 11:30 AM ESTAddended by: NYLA FOSTER on: 08/24/2024 11:27 AM Modules accepted: Orders documented in this encounter Plan of Treatment Upcoming Encounters Date Type Department Care Team (Late st Contact Info) Description 11/01/2024 10:30 AM EDT Office Visit [facility] MEDICINE [address] [place] [address] Bridgette Gandhi MD [address] [place] [address] 01/06/2025 10:00 AM EDT Office Visit [facility] ADULT DENTAL [address] [place] [address] Lydia Mac [address] [place] [address] Scheduled Orders Name Type Priority Associated Diagnoses Orde r Schedule 32 32 ENDODONTICS - ENDODONTIC THERAPY (INCLUDING TREATMENT PLAN, CLINICAL PROCEDURES AND FOLLOW-UP CARE) - ENDODONTIC THERAPY, MOLAR TOOTH (EXCLUDING FINAL UATSDIN) Dental Routine [address] arting 08/24/2024 documented as of this encounter Goals Goal Patient Goal Type Associated Problems Recent Progress Patient-Stated? Author Blood Pressure < 140/90 Blood Pressure 130/60(2024 10:46 AM EST) No Ramón Bolaños, Bradley Hemoglobin A1c < 7 Result Component 7(08/04/2024 11:32 AM EST) No Ramón Bolaños PharmD documented as of this encounter Procedures Procedure Name Priority Date/Time Associated Diagnosis Comments ADJUNCTIVE GENERAL SERVICES - UNCLASSIFIED TREATMENT - PALLIATIVE TREATMENT OF DENTAL PAIN - PER VISIT Routine 08/24/2024 11:30 AM EST INTRAORAL - PERIAPICAL FIRST RADIOGRAPHIC IMAGE Routine 08/24/2024 11:30 AM EST ADJUNCTIVE GENERAL SERVICES - PROFESSIONAL VISITS - CASE PRESENTATION, SUBSEQUENT TO DETAILED AND EXTENSIVE TREATMENT PLANNING Routine 08/24/2024 11:30 AM EST documented in this encounter Visit Diagnoses Diagnosis Caries of cervical margin of tooth- Primary Odontalgia Unspecified disorder of the teeth and supporting structures documented in this encounter Additional Health Concerns Assessment Noted Time PHQ-9 Depression Total Score: 0 04/07/20 11:45 AM EDT documented as of this encounter Care Teams Power Electronics Engineer Relationship Specialty Start Date End Date Bridgette Gandhi MD [address] [place] [address] PCP - General Family Medicine 07/01/12 Ramón Bolaños PharmD [address] [place] [address] Pharmacist Internal Medicine 11/18/23 documented as of this encounter
--- OUTSIDE RECORDS SUMMARY | 2024-09-13 06:51 | XMS_ITS | Encounter Summary ---
Author Organization [employer] [facility] Address [address] [place] [address] [address] [place] [address] Care Team Providers Care Web Ui Software Engineer Name Role Phone Bridgette Gandhi MD Primary Care Provider [phone] Ramón Bolaños PharmD Unavailable [phone] Encounter Details Date Type Department Care Team (Late Contact Info) Description 04/30/2023 Abstract [facility] MEDICINE [address] [place] [address] [phone] Bridgette Gandhi MD [address] [place] [address] [phone] Social History Tobacco Use Types Packs/Day Years [...] 10:30 AM EDT Office Visit [facility] MEDICINE [address] [place] [address] [phone] Bridgette Gandhi MD [address] [place] [address] 01/06/2025 10:00 AM EDT Office Visit [facility] ADULT DENTAL [address] [place] [address] Lydia Mac [address] [place] [address] documented as of this encounter Procedures Procedure Name Priority Date/Time Associated Diagnosis Comments HM DIABETES: URINE PROTEIN SCREENING Routine 04/28/2023 documented in this encounter Results * HM Diabetes: Urine Protein Screening (04/28/2023) Microalbumin, Urine 18 Creatinine, Random Urine 180.1 Urine Bridgette Gandhi MD HEALTH MAINTENANCE Final Result documented in this encounter Visit Diagnoses Not on filedocumented in this encounter Additional Health Concerns Assessment Noted Time PHQ-9 Depression Total Score: 5 09/11/19 23 10:25 AM EST documented as of this encounter Care Teams Web Ui Software Engineer Relationship Specialty Start Date End Date Bridgette Gandhi MD [address] [place], [place] [phone] PCP - General Family Medicine 07/01/12 Ramón Bolaños, MollyD [address] [place] [address] [phone] Pharmacist Internal Medicine 11/18/23 documented as of this encounter
--- OUTSIDE RECORDS SUMMARY | 2024-09-13 06:51 | XMS_ITS | Encounter Summary ---
Author Organization [employer] [facility] Address [address] [place] [address] [address] [place] [address] Care Team Providers Care Group Marketing Vp Name Role Phone Bridgette Gandhi MD Primary Care Provider [phone] Ramón Bolaños PharmD Unavailable [phone] Encounter Details Date Type Department Care Team (Late st Contact Info) Description 07/30/2022 Abstract [facility] ADULT DENTAL [address] [place], [place] [phone] Lydia Mac [address] [place] [address] Social History Tobacco Use Types Packs/Day Years [...] Description 11/01/2024 10:30 AM EDT Office Visit [facility] MEDICINE [address] [place], [place] [phone] Bridgette Gandhi MD [address] [place], [place] [phone] 01/06/2025 10:00 AM EDT Office Visit [facility] ADULT DENTAL [address] [place], [place] [phone] Lydia Mac [address] [place] [address] documented as of this encounter Procedures Procedure Name Priority Date/Time Associated Diagnosis Comments 32 RETAINER CROWN - P[place]CEL[place] FUSED TO CERON METAL Routine 07/30/2022 12:00 AM EST 30 RETAINER CROWN - [place] FUSED TO CERON METAL Routine 07/30/2022 12:00 AM EST 31 PONTIC - [place] FUSED TO HIGH CERON METAL Routine 07/30/2022 12:00 AM EST 14 B(V) COMPOSITE FILLING Routine 07/30/2022 12:00 AM EST 13 B(V) COMPOSITE FILLING Routine 07/30/2022 12:00 AM EST 5 B(V) COMPOSITE FILLING Routine 022 12:00 AM EST 3 B(V) COMPOSITE FILLING Routine 022 12:00 AM EST 31 EXTRACTION Routine 07/30/2022 12:00 AM EST 17 EXTRACTION Routine 07/30/2022 12:00 AM EST 15 EXTRACTION Routine 07/30/2022 12:00 AM EST 1 EXTRACTION Routine 07/30/2022 12:00 AM EST documented in this encounter Visit Diagnoses Not on filedocumented in this encounter Care Teams Group Marketing Vp Relationship Specialty Start Date End Date Bridgette Gandhi MD [address] [place] [address] PCP - General Family Medicine 07/01/12 Ramón Bolaños PharmD [address] [place] [address] Pharmacist Internal Medicine 11/18/23 documented as of this encounter
--- OUTSIDE RECORDS SUMMARY | 2024-09-13 06:51 | XMS_ITS ---
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 MAX 8 PUFFS PER DAY 2022-05-01 No Data Available Advair Diskus 500-50 MCG/ACT Aerosol Powder Breath Activated INHALE 1 PUFF BY MOUTH TWICE DAILY IN THE MORNING AND IN THE EVENING APPROXIMATELY 12 HOURS APART 2022-03-26 No Data Available Loratadine 10 mg Tab TAKE 1 TABLET BY MO UTH EVERY DAY 2021-12-10 No Data Available amLODIPine Besylate 5 mg Tab TAKE 1 TABL ET BY MOUTH EVERY MORNING 2022-01-08 No Data Available Atorvastatin Calcium 40 mg Tab TAKE 1 TABLET BY MOUTH AT BEDTIME 2021-11-15 No Data Available Carvedilol 25 mg Tab TAKE 1 TABLET BY MO UTH TWICE DAILY IN THE MORNING AND IN THE EVENING 2022-02-04 No Data Available Doxazosin Mesylate 8 mg Tab TAKE 1 TABLE T BY MOUTH AT BEDTIME 2021-07-24 No Data Available Furosemide 20 mg Tab TAKE 1 TABLET BY MO UTH EVERY MORNING 2022-02-27 No Data Available hydrALAZINE 100 mg Tab TAKE 1 TABLET BY MOUTH THREE TIMES DAILY IN THE MORNING, EVENING, AND BEDTIME 2022-01-07 No Data Available metFORMIN ER 500 mg Tab ER 24hr TAKE 1 TABLET BY MOUTH EVERY EVENING WITH FOOD 2022-01-08 No Data Available OneTouch Ultra Strip TEST BLOOD SUGAR TW ICE DAILY 2021-12-06 No Data Available OneTouch UltraSoft Lancets Miscellaneous TEST BLOOD SUGAR TWICE DAILY 2022-03-06 No Data Available Azithromycin 250 mg Tab TAKE 2 TABLETS B Y MOUTH ON DAY 1, THEN TAKE 1 TABLET DAILY ON DAYS 2-5 2022-06-10 No Data Available Benzonatate 100 mg Cap TAKE 1 CAPSULE BY MOUTH THREE TIMES DAILY NEEDED FOR COUGH 2022-06-10 No Data Available cholecalciferol (vitamin D3) 25 mcg (1,000 unit) tablet TAKE 1 TABLET BY MOUTH EVERY MORNING 2022-03-10 No Data Available Finasteride 5 mg Tab TAKE 1 TABLET BY MO UTH EVERY MORNING 2022-03-10 No Data Available Deep Sea Nasal [place] 0.65 % Solution USE 1-2 SPRAYS IN EACH NOSTRIL EVERY 2 TO 3 HOURS NEEDED FOR NASAL CONGESTION 2022-06-30 No Data Available levoFLOXacin 500 mg Tab TAKE 1 TABLET BY MOUTH EVERY 24 HOURS 2022-06-30 No Data Available Lisinopril 40 mg Tab TAKE 1 TABLET BY MO UTH EVERY EVENING 2022-01-16 No Data Available Latanoprost 0.005 % Solution INSTILL 1 D ROP IN RIGHT EYE AT BEDTIME 2022-07-16 No Data Available Medbox Status USE DIRECTED 2022-07-04 No Data Nancy ilable Meloxicam 15 mg Tab TAKE 1 TABLET BY BISHOP TH EVERY MORNING 2022-09-11 No Data Available Mupirocin 2 % Oint APPLY TO THE AFFECTE D AREA(S) THREE TIMES DAILY FOR 10 DAYS 2022 No Data Available Acetaminophen 500 mg Tab 2 tablets orall y Q8H PRN pain 2022-10-29 No Data Available Diclofenac Sodium 1 % Gel 4 grams topica lly to affected area 4 times per day PRN 2022-10-29 No Data Available Fluticasone Propionate 50 MCG/ACT Suspension INHALE 1-2 SPRAYS IN EACH NOSTRIL ONCE DAILY IN THE MORNING 2023-04-27 No Data Available Sertraline 25 mg Tab TAKE 1 TABLET BY MO UTH EVERY MORNING 2023-03-25 No Data Available predniSONE 20 mg Tab TOME DOS TABLETAS P OR V A ORAL TODOS LOS D POR 3 D 2023 2023-10-27 Problem List Problem Status Onset Date Resolved Date BPH (benign prostatic hyperplasia) Active 3-12 N/A Memory impairmentAlzheimer's disease with early onset Active 2022-10-28 N/A MDD (major depressive disord er), recurrent episode, mild Active 2022-09-30 N/A Morbid (severe) obesity due to excess calories Active 2022-09-30 N/A Type 2 diabetes mellitus wit h diabetic neuropathy, unspecifiedType 2 diabetes mellitus with hyperlipidemia Active 2022-09-30 N/A Other problems related to [facility] facilities and other health care Active 2023-10-27 N/A Hypertensive heart disease w ith heart failureSecondary hyperaldosteronism Active 2022-10-14 N/A COPD (chronic obstructive pulmonary disease) Active 2022-10-14 N/A Glaucoma, right eye Active 2022-10-28 N/A Chronic pain Active 2023-10-27 N/A Encounters Encounters Type Facility Date of Service Diagnosis/Co mplaint New patient,40-59min; chronic exacerbation, 2 stable chronic or 1 acute illness add add modifier 95 for video (do not use for phone, instead use [id number]) [facility] Type 2 diabetes mellitus wit h diabetic neuropathy, unspecifiedHypertensive heart disease with heart failureHeart failure, unspecifiedMorbid (severe) obesity due to excess caloriesMajor depressive disorder, recurrent, mildChronic obstructive pulmonary disease, unspecifiedOther amnesiaUnspecified glaucomaBody mass index (bmi) 39.0-39.9, adult New patient,40-59min; chronic exacerbation, 2 stable chronic or 1 acute illness add add modifier 95 for video (do not use for phone, instead use [id number]) [facility] [place] New patient,40-59min; chronic exacerbation, 2 stable chronic or 1 acute illness add add modifier 95 for video (do not use for phone, instead use 06647-76) [facility] [place] New patient,40-59min; chronic exacerbation, 2 stable chronic or 1 acute illness add add modifier 95 for video (do not use for phone, instead use [id number]) [facility] [place] New patient,40-59min; chronic exacerbation, 2 stable chronic or 1 acute illness add add modifier 95 for video (do not use for phone, instead use [id number]) [facility] [place] New patient,40-59min; chronic exacerbation, 2 stable chronic or 1 acute illness add add modifier 95 for video (do not use for phone, instead use [id number]) [facility] [place]2022 New patient,40-59min; chronic exacerbation, 2 stable chronic or 1 acute illness add add modifier 95 for video (do not use for phone, instead use 15271-82) [facility] [place]2022 New patient,40-59min; chronic exacerbation, 2 stable chronic or 1 acute illness add add modifier 95 for video (do not use for phone, instead use [id number]) [facility] [place]22 New patient,40-59min; chronic exacerbation, 2 stable chronic or 1 acute illness add add modifier 95 for video (do not use for phone, instead use 08518-39) [facility] [place] No Data Available [facility] [place]2022 Type 2 diabetes mellitus wit h diabetic neuropathy, unspecifiedMorbid (severe) obesity due to excess caloriesMajor depressive disorder, recurrent, mildHeart failure, unspecifiedHypertensive heart disease with heart failureChronic obstructive pulmonary disease, unspecifiedOther amnesiaUnspecified glaucoma No Data Available [facility] [place]2022 No Data Available [facility] [place]20[place] Estab. patient 30-39min; chronic exacerbation, 2 stable chronic or 1 acute illness add add modifier 95 for video, (do not use for phone, instead use [id number]) [facility] [place]2023 Type 2 diabetes mellitus wit h diabetic neuropathy, unspecifiedType 2 diabetes mellitus with other specified complicationHyperlipidemia, unspecifiedMorbid (severe) obesity due to excess caloriesBody mass index (bmi) 36.0-36.9, adultHypertensive heart disease with heart failureHeart failure, unspecifiedSecondary hyperaldosteronismChronic obstructive pulmonary disease, unspecifiedMajor depressive disorder, recurrent, mildAlzheimer's disease with early onsetDementia in oth diseases classd elswhr w/o behavrl disturbOther amnesiaEnlarged prostate without lower urinary tract symptomsOther chronic painOther problems related to medical facilities and other health care Estab. patient 30-39min; chronic exacerbation, 2 stable chronic or 1 acute illness add add modifier 95 for video, (do not use for phone, instead use 35385-74) [facility] [place] Estab. patient 30-39min; chronic exacerbation, 2 stable chronic or 1 acute illness add add modifier 95 for video, (do not use for phone, instead use 17267-58) [facility] [place]2023 Estab. patient 30-39min; chronic exacerbation, 2 stable chronic or 1 acute illness add add modifier 95 for video, (do not use for phone, instead use 67534-55) [facility] [place]2023 Estab. patient 30-39min; chronic exacerbation, 2 stable chronic or 1 acute illness add add modifier 95 for video, (do not use for phone, instead use 14789-90) [facility] [place]23 Estab. patient 30-39min; chronic exacerbation, 2 stable chronic or 1 acute illness add add modifier 95 for video, (do not use for phone, instead use 07052-46) [facility] [place] Estab. patient 30-39min; chronic exacerbation, 2 stable chronic or 1 acute illness add add modifier 95 for video, (do not use for phone, instead use 07189-92) [facility] [place] Estab. patient 30-39min; chronic exacerbation, 2 stable chronic or 1 acute illness add add modifier 95 for video, (do not use for phone, instead use 38811-32) [facility] [place]2023 Estab. patient 30-39min; chronic exacerbation, 2 stable chronic or 1 acute illness add add modifier 95 for video, (do not use for phone, instead use 60943-78) [facility] [place]20[place] Estab. patient 30-39min; chronic exacerbation, 2 stable chronic or 1 acute illness add add modifier 95 for video, (do not use for phone, instead use [id number]) [facility] [place] Estab. patient 20-29min; 1 stable chronic or 2 minor; add add modifier 95 for video, modifier 93 for phone [facility] [place]24 Other chronic painOther prob lems related to medical facilities and other health care Estab. patient 20-29min; 1 stable chronic or 2 minor; add add modifier 95 for video, modifier 93 for phone [facility] [place] Estab. patient 20-29min; 1 stable chronic or 2 minor; add add modifier 95 for video, modifier 93 for phone [facility] [place] Estab. patient 20-29min; 1 stable chronic or 2 minor; add add modifier 95 for video, modifier 93 for phone [facility] [place] Estab. patient 20-29min; 1 stable chronic or 2 minor; add add modifier 95 for video, modifier 93 for phone [facility] [place] Estab. patient 20-29min; 1 stable chronic or 2 minor; add add modifier 95 for video, modifier 93 for phone [facility] [place] Estab. patient 20-29min; 1 stable chronic or 2 minor; add add modifier 95 for video, modifier 93 for phone [facility] [place] No Data Available [facility] [place] Hypertensive heart disease w ith heart failureHeart failure, unspecifiedSecondary hyperaldosteronismChronic obstructive pulmonary disease, unspecifiedUnspecified glaucomaOther problems related to medical facilities and other health careOther chronic pain No Data Available [facility] [place] No Data Available [facility] [place] Vital Signs Date of Collection Vitals 2022-10-28 06:34:24 Height - 167.64 cmWe ight - 110.22 kgBody Mass Index (BMI) - 39.22 kg/m2BP Diastolic - 64.0 mm[Hg]BP Systolic - 123.0 mm[Hg] 2023-10-27 07:56:36 Height - 167.64 cmWe ight - 101.61 kgBody Mass Index (BMI) - 36.15 kg/m2BP Diastolic - 68.0 mm[Hg]BP Systolic - 119.0 mm[Hg]Heart Rate - 63.0 /minPain Scale - 9.0 {score} 2024-05-30 09:58:59 Height - 165.1 cmWei ght - 109.32 kgBody Mass Index (BMI) - 40.1 kg/m2Pain Scale - 10.0 {score} 2024-07-25 07:16:41 Pain Scale - 4.0 {sc ore} Social History Social History Social History Observation Description Effec tive Time Current Smoking Status Current every day smoker 2024-09-13 Sex Male History of Procedures Procedures Service Procedure code Service date Servicing provider Phone# New patient,40-59min; chronic exacerbation, 2 stable chronic or 1 acute illness add add modifier 95 for video (do not use for phone, instead use [id number]) [id number] 2022-10-28 No Data Available No Data Availa ble Medication List Documented (1159F) 1159F 2022-10-28 No Data Available No Data Nancy ilable Medication Review by prescribing provider or pharmacist documented (1160F) 1160F 2022-10-28 No Data Available No Data Nancy ilable Functional Status Assessed (1170F) 1170F 2022-10-28 No Data Available No Data Avail able Advance Care Directive Advance care planning discussion documented in the medical record (1158F) 1158F 2022-10-28 No Data Available No Data Availa ble BMI obtained (3008F) 3008F 2022-10-28 No Data Availab le No Data Available SBP < 130 (3074F) 3074F 2022-10-28 No Data Available No Data Available DBP <80 (3078F) 3078F 2022-10-28 No Data Available No Data Available Pain Assessment - Pain Documented on a Pain Scale (1125F) 1125F 2022-10-28 No Data Available No Data Nancy ilable No Data Available [id number] 2022-10-29 No Data Available No Data Available Medication List Documented (1159F) 1159F 2022-10-29 No Data Available No Data Nancy ilable Pain Assessment - Pain Documented on a Pain Scale (1125F) 1125F 2022-10-29 No Data Available No Data Nancy ilable Estab. patient 30-39min; chronic exacerbation, 2 stable chronic or 1 acute illness add add modifier 95 for video, (do not use for phone, instead use [id number]) 18573 2023-10-27 No Data Available No Data Availa ble Advance care planning discussed and documented ? advance care plan or surrogate decision-maker was documented in the medical record. (1123F) 1123F 2023-10-27 No Data Available No Data Availa ble Medication List Documented (1159F) 1159F 2023-10-27 No Data Available No Data Nancy ilable Medication Review by prescribing provider or pharmacist documented (1160F) 1160F 2023-10-27 No Data Available No Data Nancy ilable BMI obtained (3008F) 3008F 2023-10-27 No Data Availab le No Data Available Advance Care Directive Advance care planning discussion documented in the medical record (1158F) 1158F 2023-10-27 No Data Available No Data Availa ble SBP < 130 (3074F) 3074F 2023-10-27 No Data Available No Data Available DBP <80 (3078F) 3078F 2023-10-27 No Data Available No Data Available Pain Assessment - Pain Documented on a Pain Scale (1125F) 1125F 2023-10-27 No Data Available No Data Nancy ilable No Data Available [id number] 2023-10-27 No Data Available No Data Available Estab. patient 20-29min; 1 stable chronic or 2 minor; add add modifier 95 for video, modifier 93 for phone 17051 2024-05-30 No Data Available No Data Availa ble Medications prescribed in hospital were reviewed and reconciled against what they were taking prior to admission during today's visit. (1111F) 1111F 2024-05-30 No Data Available No Data Availa ble Advance care planning discussed and documented ? advance care plan or surrogate decision-maker was documented in the medical record. (1123F) 1123F 2024-05-30 No Data Available No Data Availa ble Pain Assessment - Pain Documented on a Pain Scale (1125F) 1125F 2024-05-30 No Data Available No Data Nancy ilable Medication List Documented (1159F) 1159F 2024-05-30 No Data Available No Data Nancy ilable Medication Review by prescribing provider or pharmacist documented (1160F) 1160F 2024-05-30 No Data Available No Data Nancy ilable BMI obtained (3008F) 3008F 2024-05-30 No Data Availab le No Data Available No Data Available [id number] 2024-07-25 No Data Available No Data Available Medication List Documented (1159F) 1159F 2024-07-25 No Data Available No Data Nancy ilable Pain Assessment - Pain Documented on a Pain Scale (1125F) 1125F 2024-07-25 No Data Available No Data Nancy ilable Functional Status Functional Category Effective Dates Dressing: Needs Assistance 2023-10-27 Bathing: Needs Assistance 2023-10-27 Eating: Independent 2023-10-27 Activities of Daily Livin2023-10-27 Ambulation/Walking: Needs Assistance, us es cane. 2023-10-27 Toileting: Needs Assistance 2023-10-27 Transferring: Needs Assistance 2023-10-16 2 Mental Status Status Date AAOX 3 2023-11-01 Assessments Date of Service Assessments 2022-10-28 06:34:24 Type 2 diabetes zeynep itus with diabetic neuropathy, unspecifiedMorbid (severe) obesity due to excess caloriesMDD (major depressive disorder), recurrent episode, mildCongestive heart failureEssential hypertensionCOPD (chronic obstructive pulmonary disease)Memory impairmentGlaucoma, right eye 2022-10-29 09:32:22 Type 2 diabetes zeynep itus with diabetic neuropathy, unspecifiedMorbid (severe) obesity due to excess caloriesMDD (major depressive disorder), recurrent episode, mildCongestive heart failureEssential hypertensionCOPD (chronic obstructive pulmonary disease)Memory impairmentGlaucoma, right eye 2023-10-27 07:56:36 Type 2 diabetes zeynep itus with diabetic neuropathy, unspecifiedType 2 diabetes mellitus with hyperlipidemiaMorbid (severe) obesity due to excess caloriesMDD (major depressive disorder), recurrent episode, mildHypertensive heart disease with heart failureSecondary hyperaldosteronismCOPD (chronic obstructive pulmonary disease)Memory impairmentAlzheimer's disease with early onsetGlaucoma, right eyeChronic painBPH (benign prostatic hyperplasia)Other problems related to medical facilities and other health care 2024-05-30 09:58:59 Patient Education to avoid future hospitalization: Call Rosie if symptoms of illness develop.Chronic painOther problems related to medical facilities and other health care 2024-07-25 07:16:41 Hypertensive heart d isease with heart failureSecondary hyperaldosteronismCOPD (chronic obstructive pulmonary disease)Glaucoma, right eyeOther problems related to medical facilities and other health careChronic pain Plan of Care Date of Service Plans 2022-10-28 06:34:24 Medication Review by prescribing provider or pharmacist documented (1160F)Medication List Documented (1159F)Functional Status Assessed (1170F)Advance Care Directive Advance care planning discussion documented in the medical record (1158F)BMI obtained (3008F)SBP < 130 (3074F)DBP <80 (3078F)Televideo new patient,40-59min; chronic exacerbation, 2 stable chronic or 1 acute illness add modifier 95Pain Assessment - Pain Documented (1125F)Continue to see PCP. Follow-up with Rosie as needed for any acute or disease education needs that may arise.StableMetforminAvg B-120A1c: 6.3% on 09/11/22Continue taking medication, low carb diet, exercise as tolerable, and lifestyle interventions. Perform routine BLE assessments for lesions and discussed s/sx of infection. Fall risk precautions. Contact us if developing DKA s/sx, HHS s/sx, or worsening neuropathyBMI: 39.22Discussed diet, exercise, and lifestyle modifications to assist with losing weight to achieve normal BMI. Continue f/u care and monitoring with PC every 3-6 monthsWorseningPatient reports worsening depressionDenies current SI/HI but reports h/o SIDiscussed coping mechanisms, provided information on benefits of verbal therapy, provided information on suicide hotline if SI begins, discussed safety, and contact us if worsening depressions, or SI/HI develop. Per patient request, psychiatric therapy referral placed.StableAmlodipine, Carvedilol, Furosemide, LisinoprilContinue taking medications as prescribed, continue monitoring and managing BP, discussed low salt diet, exercise as tolerable, lifestyle approaches, monitor weight and BLE for edema daily, and contact us if developing acute change in weight (2-5 lbs) or severe acute onst of BLE edema. Continue f/u care and monitoring with PCP and cardiology every 3-6 monthsStableLisinopril, Furosemide Avg BP: 120s/60sContinue taking medications as prescribed, continue monitoring BP, discussed low salt diet, exercise as tolerable, and lifestyle interventions. Contact us if developing emergent HTN s/sx (eg. palpitations, persistent NOLEN< blurry vision)Reports intermittent SOB with exertionAlbuterol, AdvairDenies recent exacerbated episodes Continue taking medications as prescribed, pursed lip breathing, reviewed MDI usage and indications, and discussed s/sx of respiratory distress (eg. severe SOB) and contact us if any of these s/sx develop and continue f/u care and monitoring with PCP every 3-6 monthsStableReports leaving refrigerator openDiscussed safety precaution and monitoring behavior, MMSE routinely, and DEONNA Consult for memory evaluation orderedStableLatanoprost ggtsContinue using medicated eye drops, monitor for acute changes or worsening vision, and continue f/u care and monitoring with PCP and ophthalmology every 3-6 months 2022-10-29 09:32:22 Phone (patient, pare nt, or guardian); 5-10 minutes of medical discussion (no modifier 95)Continue to see PCP. Follow-up with Rosie as needed for any acute or disease education needs that may arise 09/03.StableMetforminAvg B-120A1c: 6.3% on 09/11/22Continue taking medication, low carb diet, exercise as tolerable, and lifestyle interventions. Perform routine BLE assessments for lesions and discussed s/sx of infection. Fall risk precautions. Contact us if developing DKA s/sx, HHS s/sx, or worsening neuropathyBMI: 39.22Discussed diet, exercise, and lifestyle modifications to assist with losing weight to achieve normal BMI. Continue f/u care and monitoring with PC every 3-6 monthsWorseningPatient reports worsening depressionDenies current SI/HI but reports h/o SIDiscussed coping mechanisms, provided information on benefits of verbal therapy, provided information on suicide hotline if SI begins, discussed safety, and contact us if worsening depressions, or SI/HI develop. Per patient request, psychiatric therapy referral placed.StableAmlodipine, Carvedilol, Furosemide, LisinoprilContinue taking medications as prescribed, continue monitoring and managing BP, discussed low salt diet, exercise as tolerable, lifestyle approaches, monitor weight and BLE for edema daily, and contact us if developing acute change in weight (2-5 lbs) or severe acute onst of BLE edema. Continue f/u care and monitoring with PCP and cardiology every 3-6 monthsStableLisinopril, Furosemide Avg BP: 120s/60sContinue taking medications as prescribed, continue monitoring BP, discussed low salt diet, exercise as tolerable, and lifestyle interventions. Contact us if developing emergent HTN s/sx (eg. palpitations, persistent NOLEN< blurry vision)Reports intermittent SOB with exertionAlbuterol, AdvairDenies recent exacerbated episodes Continue taking medications as prescribed, pursed lip breathing, reviewed MDI usage and indications, and discussed s/sx of respiratory distress (eg. severe SOB) and contact us if any of these s/sx develop and continue f/u care and monitoring with PCP every 3-6 monthsStableReports leaving refrigerator openDiscussed safety precaution and monitoring behavior, MMSE routinely, and DEONNA Consult for memory evaluation ordered10/29 referred to PCP/ Neuro for mini mentalhe is currently aox4 states he is forgetful at times but it is no consistentStableLatanoprost ggtsContinue using medicated eye drops, monitor for acute changes or worsening vision, and continue f/u care and monitoring with PCP and ophthalmology every 3-6 months 2023-10-27 07:56:36 Medication Review by prescribing provider or pharmacist documented (1160F)Medication List Documented (1159F)Functional Status Assessed (1170F)Advance Care Directive Advance care planning discussion documented in the medical record (1158F)BMI obtained (3008F)SBP < 130 (3074F)DBP <80 (3078F)Televideo 30-39min; chronic exacerbation, 2 stable chronic or 1 acute illness add modifier 95Advance care planning discussed and documented ? advance care plan or surrogate decision-maker was documented in the medical record. (1123F)Pain Assessment - Pain Documented (1125F)Continue to see PCP. Follow-up with [facility] as needed for any acute or disease education needs that may arise.StableMetforminAvg B-120A1c: 6.3% on 09/11/22Continue taking medication, low carb diet, exercise as tolerable, and lifestyle interventions. Perform routine BLE assessments for lesions and discussed s/sx of infection. Fall risk precautions. Contact us if developing DKA s/sx, HHS s/sx, or worsening neuropathy 10/27/2023:Follows up with PCP.Glucose: 102 mg/dl today at home.Denies any skin ulcers. Taking:DM: metFORMIN ER 500 mg Tab ER 24hr TAKE 1 TAB QDHL: Atorvastatin Calcium 40 mg Tab TAKE 1 TAB QDAdvised to follow low fat, low carb, heart healthy diet.Continue treatment as prescribed. Follow up with PCP as scheduled.Contact CB 24/7 as needed.BMI: 39.22Discussed diet, exercise, and lifestyle modifications to assist with losing weight to achieve normal BMI. Continue f/u care and monitoring with PC every 3-6 months 10/27/2023:BMI: 36.15Weight management by diet modification discussed with patient.Low fat, low carb, low sugar diet.Stay physically active as tolerated.Follow up with PCP. Contact CB 24/7 as needed.WorseningPatient reports worsening depressionDenies current SI/HI but reports h/o SIDiscussed coping mechanisms, provided information on benefits of verbal therapy, provided information on suicide hotline if SI begins, discussed safety, and contact us if worsening depressions, or SI/HI develop. Per patient request, psychiatric therapy referral placed. 10/27/2023:Follows up with PCP.Stable. Taking: Sertraline 25 mg Tab TAKE 1 TABLET BY MOUTH EVERY MORNING.Denies any acute complaint.Denies any SI or HI. Continue treatment as prescribed, follow up as instructed.Contact CB 24/7 as needed.StableLisinopril, Furosemide Avg BP: 120s/60sContinue taking medications as prescribed, continue monitoring BP, discussed low salt diet, exercise as tolerable, and lifestyle interventions. Contact us if developing emergent HTN s/sx (eg. palpitations, persistent NOLEN< blurry vision)10/27/2023:Follows up with PCP, [employer], last visit 2 weeks ago.BP: 119/68. Reported by patient, taken today at home. Taking: amLODIPine Besylate 5 mg Tab TAKE 1 TAB QDCarvedilol 25 mg Tab TAKE 1 TABLET BIDDoxazosin Mesylate 8 mg Tab TAKE 1 TABLET BY MOUTH AT BEDTIMEFurosemide 20 mg Tab TAKE 1 TABLET BY MOUTH EVERY MORNINGhydrALAZINE 100 mg Tab TAKE 1 TABLET BY MOUTH THREE TIMES DAILY Lisinopril 40 mg Tab TAKE 1 TABLET BY MOUTH EVERY EVENINGDenies any acute complaint.Continue treatment as prescribed, follow up as instructed.Monitor BP regularly at home.Follow low Sodium diet. Contact CB 24/ as needed.Reports intermittent SOB with exertionAlbuterol, AdvairDenies recent exacerbated episodes Continue taking medications as prescribed, pursed lip breathing, reviewed MDI usage and indications, and discussed s/sx of respiratory distress (eg. severe SOB) and contact us if any of these s/sx develop and continue f/u care and monitoring with PCP every 3-6 months 10/27/2023:Follows up with PCP.Continues using: Albuterol PRN, Advair, Flonase, and Loratadine.Denies any recent or acute respiratory symptoms. Contact CB 24/ as needed.StableReports leaving refrigerator openDiscussed safety precaution and monitoring behavior, MMSE routinely, and DEONNA Consult for memory evaluation ordered10/29 referred to PCP/ Neuro for mini mentalhe is currently aox4 states he is forgetful at times but it is no consistent 10/27/2023:Stable.Follows up with PCP.Not taking any medications. Denies any acute complaint.StableLatanoprost ggtsContinue using medicated eye drops, monitor for acute changes or worsening vision, and continue f/u care and monitoring with PCP and ophthalmology every 3-6 months 10/27/2023:Follows up with [employer].Continues using: Latanoprost drops.Denies any acute complaint.Reports chronic bilateral hip pain. Takes Tylenol as needed.Uses: Diclofenac Sodium 1 % Gel 4 grams topically to affected area 4 times per day PRNUses cane to ambulate.Follows up with PCP.Taking: Finasteride 5 mg Tab TAKE 1 TABLET BY MOUTH EVERY MORNINGDoing well on current treatment.Denies any acute complaint.Continue treatment as prescribed, follow up as instructed.Contact CB 09/03 as needed.CONTINGENCY PLANMember to call for the following symptoms: Wheezing/ Breathing loudly/ Increased cough/ Change in sputum colorAssess current symptoms and treat accordingly. Suggested plan: Planned intervention: Increase use of albuterol inhaler to q2h PRN cough, breathlessness/ Doxycycline 100mg BID x 7 days/ Flonase 2 sprays daily 2024-05-30 09:58:59 Discharge medication s reconciled with current medication listTelevideo 20-29min; 1 stable chronic or 2 minor; add modifier 95Advance care planning discussed and documented ? advance care plan or surrogate decision-maker was documented in the medical record. (1123F)Medications prescribed in hospital were reviewed and reconciled against what they were taking prior to admission during today's visit. (1111F)PCP visit is planned for:Reports chronic bilateral hip pain. Takes Tylenol as needed.Uses: Diclofenac Sodium 1 % Gel 4 grams topically to affected area 4 times per day PRNUses cane to ambulate. 05/30/2024 patient went in to the ER on 05/25/2024 for severe pain. patient was sentt home with oral pain medication and lidocaine patch. pending for insurance to approve steroid injectionPAIN CONTINGENCY PLANLast updated: 05/30/2024Member to call for the following symptoms: Fall??/ Increased pain/ Increased pain meds/ Joint swellingPlanned intervention: Prednisone 50mg daily for 5 days/ Apply heat to affected area/ Apply ice to affected area 2024-07-25 07:16:41 Phone (patient, pare nt, or guardian); 5-10 minutes of medical discussion (no modifier 95)Pain Assessment - Pain Documented (6679F)Continue to see PCP. Follow-up with [facility] as needed for any acute or disease education needs that may arise 09/03.StableLisinopril, Furosemide Avg BP: 120s/60sContinue taking medications as prescribed, continue monitoring BP, discussed low salt diet, exercise as tolerable, and lifestyle interventions. Contact us if developing emergent HTN s/sx (eg. palpitations, persistent NOLEN< blurry vision)07/25/2024:Follows up with PCP, [employer], last visit 2 weeks ago.Taking: amLODIPine Besylate 5 mg Tab TAKE 1 TAB QDCarvedilol 25 mg Tab TAKE 1 TABLET BIDDoxazosin Mesylate 8 mg Tab TAKE 1 TABLET BY MOUTH AT BEDTIMEFurosemide 20 mg Tab TAKE 1 TABLET BY MOUTH EVERY MORNINGhydrALAZINE 100 mg Tab TAKE 1 TABLET BY MOUTH THREE TIMES DAILY Lisinopril 40 mg Tab TAKE 1 TABLET BY MOUTH EVERY EVENINGDenies any acute complaint.Continue treatment as prescribed, follow up as instructed.Monitor BP regularly at home.Follow low Sodium diet. Contact CB 24/7 as needed.Reports intermittent SOB with exertionAlbuterol, AdvairDenies recent exacerbated episodes Continue taking medications as prescribed, pursed lip breathing, reviewed MDI usage and indications, and discussed s/sx of respiratory distress (eg. severe SOB) and contact us if any of these s/sx develop and continue f/u care and monitoring with PCP every 3-6 months 07/25/2024:Follows up with PCP.Continues using: Albuterol PRN, Advair, Flonase, and Loratadine.Denies any recent or acute respiratory symptoms. Contact CB 24/ as needed.StableLatanoprost ggtsContinue using medicated eye drops, monitor for acute changes or worsening vision, and continue f/u care and monitoring with PCP and ophthalmology every 3-6 months 07/25/2024:Follows up with [employer].Continues using: Latanoprost drops.Denies any acute complaint.PAIN CONTINGENCY PLANLast updated: 05/30/2024Member to call for the following symptoms: Fall??/ Increased pain/ Increased pain meds/ Joint swellingPlanned intervention: Prednisone 50mg daily for 5 days/ Apply heat to affected area/ Apply ice to affected areaReports chronic bilateral hip pain. Takes Tylenol as needed.Uses: Diclofenac Sodium 1 % Gel 4 grams topically to affected area 4 times per day PRNUses cane to ambulate. 05/30/2024 patient went in to the ER on 05/25/2024 for severe pain. patient was sentt home with oral pain medication and lidocaine patch. pending for insurance to approve steroid injection 07/25/24: reports he is following up with pain clinic and getting injections in his back . Reports pain today is caused by uncomfortable recliner at home. Requesting new recliner. PLAN: discussed that furniture/recliner will most likely not be covered by health plan. [facility] cc info sent to member and TAX ACCOUNTING MANAGER. Advised to f/u with recliner request during 07/27/24 f/u visit with PCP, as may need PT/OT eval. Goals Date Goal 2022-10-28 Remember to exercise as tolerable, attend DEONNA consult for memory impairment and f/u with psychiatric therapy referral 2022-10-28 Contact us if develo ping SI/HI s/sx, worsening depression, emergent HTN or cardiac s/sx, respiratory distress, safety concern r/t memory impairment, acute change in vision, HHS s/sx or DKA 2022-10-28 Continue taking medi cation as prescribed, using coping mechanisms for depression, and implementing low salt diet. 2022-10-28 Psychiatric therapy referral 2022-10-28 DEONNA consult for rashaad ry impairment 2022-10-29 continue medications as prescribed 2022-10-29 aware of tylenol dos ing 1-2 mac per dose no more than 3000mg daily 2022-10-29 call if you feel ill , have any questions or concerns 2022-10-29 RX sent to pharmacy on file 2023-10-27 Remember to keep all appointments with your PCP and specialists. Call 09/03 if you have questions or concerns. Discussed how to contact [facility] via phone or tablet. 24/ phone number provided. 2024-05-30 At least 50% of time spent counseling pt, discussing diagnosis, treatment plan, compliance, and coordinating followup care. Continue taking medications as directed and keep all follow up appointments with established PCP and Specialist Health Concerns Date Concern 2024-07-25 Visit completed via audio by telephone. Patient/Guardian agreed to visit via telehealth.Time spent in visit: 2024-07-25 Most recent hospital stay(s) or ER visit(s) and precipitating factors: no ER visits in the past month 2024-07-25 HEDIS review: 2024-07-25 had shot for pain, a nd f/u with pain clinic this week. 2024-07-25 PCP f/u 07/27/24 2024-07-25 Senait Girard -LLUVIA
[2024-09-13 07:54] LABS: Glucose, Whole Blood 116 mg/dL (60-115)
[2024-09-13] MEDS: Lactated Ringers 1,000 ML 100 ML IVCONT (07:55)
--- NOTE | 2024-09-13 08:21 | MHC.SHP ---
Pre-Procedural Eval Section A - 24 Hr Update-Section A only Date of Service: 09/13/24 The patient is an INPATIENT: No The patient has been examined within 24 hours of the surgical procedure. The History & Physical has been completed within 30 days and I have reviewed it.: Yes Section B - Complete if H&P > 30 days Chief Complaint: Calculus in bladder,Benign prostatic hyperplasia Allergies: Allergies Allergy/AdvReac Type Severity Reaction Status Date / Time Penicillins Allergy Intermediate RASH Verified 09/13/24 07:23 Carbapenems Allergy Unknown Unknown Verified 09/13/24 07:23 Cephalosporins Allergy Unknown Unknown Verified 09/13/24 07:23 enviormental Allergy Severe coughing Uncoded 07/04/24 10:05 and sneezing Plan Diagnosis/Plan: Unchanged I have reviewed the history and physical and performed a pertinent physical examination on my patient. No changes have occurred unless specified. Cystoscopy, laser bladder stone cystolitholipaxy. Transurethral resection prostate. Time Spent With Patient Time: Total time managing care of this patient today ____ minutes.
[2024-09-13 16:59] LABS: Glucose, Whole Blood 127 mg/dL (60-115)
[2024-09-13] MEDS: Lactated Ringers 1,000 ML 50 ML IVCONT (17:21)
[2024-09-13] MEDS: Acetaminophen 325 MG TABLET 650 MG PO (17:34)
--- NOTE | 2024-09-13 18:57 | PHA.MEDREC ---
Addendum entered by Melissa Mooney RPh 09/13/24 19:26: Med rec was reviewed by [facility]. Original Note: Pharmacy Consult ? Medication Reconciliation Pharmacy has reviewed the medication reconciliation done by nursing. Spoke to patient through crop duster ( patients daughter) to confirm med list. Daughter had patients medBox list with her. Daughter states patient is no longer taking Carvedilol 25 mg, Cyclobenazprine 5 mg, Diclofenac sod 1% Gel, Lidocaine 2% mucosal Jelly, Lidoderm Patches, Magnesium oxide 400 mg, Mupirocin 2% ointment, and Naproxen 500 mg.
[2024-09-13 20:15] LABS: Glucose, Whole Blood 181 mg/dL (60-115)
[2024-09-13] MEDS: Finasteride 5 MG TABLET PO (20:16)
[2024-09-13] MEDS: lisinopriL 40 MG TABLET PO (20:18)
[2024-09-13] MEDS: hydrALAZINE HCl 50 MG TABLET PO (20:18)
[2024-09-13] MEDS: Atorvastatin Calcium 40 MG TABLET PO (20:19)
[2024-09-13] MEDS: Docusate Sodium 100 MG CAPSULE PO (20:19)
[2024-09-14 03:24] VITALS: BP 150/67; PULSE 52; RESP 16; TEMP 36.5; O2SAT 95
[2024-09-14 05:56] LABS: Hematocrit 38.3 % (42.0-52.0); Hemoglobin 12.8 g/dl (14.0-18.0); Mean Corpuscular HGB Conc 33.4 g/dl (31.0-36.0); Mean Corpuscular Hemoglobin 30.8 pg (27.0-33.0); Mean Corpuscular Volume 92.1 fL (80.0-98.0); Mean Platelet Volume 12.3 fL (9.4-12.4); Platelet Count 141 X10*3/uL (160-400); Red Blood Count 4.16 X10*6/uL (4.60-5.80); Red Cell Distribution Width 13.1 % (11.0-16.0); White Blood Count 10.8 X10*3/uL (4.8-10.8)
[2024-09-14 06:07] LABS: Anion Gap 11 (12-20); Blood Urea Nitrogen 16 mg/dL (9-16); Calcium 8.6 mg/dL (8.4-10.2); Carbon Dioxide 27 mmol/L (22-29); Chloride 106 mmol/L (96-108); Creatinine Clr Calc Pharmacy 85.9; Estimated Glomerular Filt Rate > 60; Glucose Random 108 mg/dL (60-115); Potassium 3.5 mmol/L (3.3-5.1); Sodium 140 mmol/L (135-145)
[2024-09-14 06:22] LABS: Glucose, Whole Blood 115 mg/dL (60-115)
[2024-09-14 07:29] VITALS: BP 159/69; PULSE 52; RESP 16; TEMP 36.8; O2SAT 96
[2024-09-14 07:37] LABS: Glucose, Whole Blood 116 mg/dL (60-115)
--- NOTE | 2024-09-14 08:22 | HO.POSTANES ---
Post Anesthesia Evaluation Post Anesthesia Evaluation Date of Service: 09/14/24 Vital Signs: Vital Signs Temp Pulse Resp BP Pulse Ox O2 Del Method 09/14/24 07:29 98.2 F 52 16 159/69 H 96 Room Air 09/14/24 03:24 97.7 F 52 16 150/67 H 95 CPAP 09/13/24 23:42 93 CPAP Anesthesia: General LMA Mental Status: Awake Pain Control: Satisfactory Nausea/Vomiting: None Hydration: Adequate Anesthesia-Related Issues: No Anes. Related Issues
[2024-09-14 08:39] VITALS: BP 159/69
[2024-09-14] MEDS: Docusate Sodium 100 MG CAPSULE PO (08:39)
[2024-09-14] MEDS: Torsemide 20 MG TABLET PO (08:39)
[2024-09-14 08:40] VITALS: BP 159/69
[2024-09-14] MEDS: hydrALAZINE HCl 50 MG TABLET PO (08:40)
[2024-09-14] MEDS: Sertraline HCL 25 MG TABLET PO (08:40)
[2024-09-14] MEDS: Finasteride 5 MG TABLET PO (08:40)
[2024-09-14] MEDS: Loratadine 10 MG TABLET PO (08:40)
[2024-09-14] MEDS: Lactated Ringers 1,000 ML 50 ML IVCONT (08:48)
--- NOTE | 2024-10-10 12:44 | W.PM.OPN ---
Operative Note Operative Note Date of Service: 09/13/24 Narrative: PREOP DIAGNOSIS: Bladder outlet obstruction, enlarged prostate, bladder stone POSTOP DIAGNOSIS: Bladder outlet obstruction, enlarged prostate, bladder stone PROCEDURE: CYSTOSCOPY TRANSURETHRAL RESECTION OF Prostate, bladder stone laser, cysto litholapaxy Anesthesia: General Details of procedure: The patient was brought into the operating room placed on the OR table in supine position. Antibiotics confirmed. General anesthesia was administered. The patient was repositioned into lithotomy position, prepped and draped in the usual sterile fashion. Time-out was done per protocol. The cystoscopy was passed transurethrally into the bladder, the bladder stone was visualized. The laser fiber was used on pulsating and dusting setting to fragment the stone. The Ellik was used to irrigate out the stone fragments. Next the 24 Egyptian resectoscope was passed transurethrally into the bladder. The bulbous urethra was within normal limits. The prostatic urethra - trilobar enlargement with obstructive median lobe. Visualization of the bladder, mild to moderate trabeculations. The loop resectoscope was used to resect the prostate, the right, left and median lobe, care was taken to preserve the Veru, the Ellik was used to irrigate out the prostatic chips, the roller ball was used to obtain adequate hemostatsis.. Once there was good hemostasis the resectoscope was removed. A [address] catheter 30 cc balloon was passed without difficulty. 45 mL H20 injected into the balloon, valderrama placed on tension. CBI with Normal Saline was started in OR. The patient was brought out of anesthesia and taken to recovery in stable condition. Complications: None EBL: <5 mL Drains: [address] catheter 30 cc balloon
== END 2024-09-14 11:00 | disposition home or self-care (01) ==
LOC: HO.SSS 06:48 → HO.S3 15:38
PROVIDERS: PCP Family Medicine; Visit Provider Urology
PROC: 0VT08ZZ Resection of Prostate, Via Natural or Artificial Opening Endoscopic (ICD-10-PCS; CPT 52601; principal; 2024-09-13 08:30)
PROC: (CPT 52601; 2024-09-13 08:30)
DX: N40.1 Benign prostatic hyperplasia with lower urinary tract symptoms (principal); R35.0 Frequency of micturition; R35.1 Nocturia; N21.0 Calculus in bladder; E11.9 Type 2 diabetes mellitus without complications; I10 Essential (primary) hypertension; E78.00 Pure hypercholesterolemia, unspecified; J45.909 Unspecified asthma, uncomplicated; G47.33 Obstructive sleep apnea (adult) (pediatric); F32.A Depression, unspecified; F41.9 Anxiety disorder, unspecified; Z79.84 Long term (current) use of oral hypoglycemic drugs; Z79.899 Other long term (current) drug therapy; Z88.0 Allergy status to penicillin; Z88.1 Allergy status to other antibiotic agents; Z98.890 Other specified postprocedural states; Z87.891 Personal history of nicotine dependence; R31.9 Hematuria, unspecified
CPT/HCPCS: 52601; 52317; 36415; 80048; 82947; 85027; 88305; 94660; J0744; J1580; J2003; J2704; J3010; J7120

== ENCOUNTER → 2024-09-13 06:48 | Outpatient (BNV) | payer OTHER, SELFPAY | PROVIDERS: PCP Family Medicine; Visit Provider Urology | DX: N40.1 Benign prostatic hyperplasia with lower urinary tract symptoms (principal); N13.8 Other obstructive and reflux uropathy; N21.0 Calculus in bladder | CPT/HCPCS: 52317; 52601 ==

== ENCOUNTER 2024-09-17 09:13 | Emergency (ER) | payer OTHER, SELFPAY ==
[2024-09-17 09:21] VITALS: BP 98/58; PULSE 103; RESP 19; TEMP 36.6; O2SAT 93; BMI 39.2
--- NOTE | 2024-09-17 11:06 | PC.NURSE ---
patient has valderrama in place, appears to be from previous CBI according to family. urine sample obtained. patient reports urine leaking around valderrama. bladder scan performed - 21 mL in bladder. valderrama appears to be draining properly at this time, clamp in place as well.
[2024-09-17 11:07] LABS: Appearance Urine Clear; Color Urine Yellow; Glucose Urine UA Negative (Negative); Leukocyte Esterase Urine Moderate (2+) (Negative); Nitrite Urine Negative (Negative); PH 5.5 (5.0-9.0); UMIC TRIGGER UACC YES; Urine Blood Large (3+) (Negative); Urine Ketones Negative (Negative); Urine Protein 100 (2+) mg/dL (Neg-Trace)
--- OUTSIDE RECORDS SUMMARY | 2024-09-17 11:09 | XMS_ITS | Encounter Summary ---
Author Organization [employer] Address [address] [facility] [address] [place] [address] Care Team Providers Care Land Survey Technician Name Role Phone Bridgette Gandhi MD Primary Care Provider [phone] Ramón Bolaños PharmD Unavailable [phone] Reason for Visit * Reason Comments Med Refill Encounter Details Date Type Department Care Team (Late st Contact Info) Description 09/16/2024 Refill [facility] [address] [place], [place] [phone] Bridgette Gandhi MD [address] [place], [place] [phone] Dyslipidemia Social History Tobacco Use Types Packs/Day Years [...] the past 12 months, has t he [place], gas, oil or water [employer] threatened to shut off services in your [...] Description 11/01/2024 10:30 AM EDT Office Visit [facility] [address] [place] [phone] Bridgette Gandhi MD [address] [place] [address] 01/06/2025 10:00 AM EDT Office Visit [facility] ADULT DENTAL [address] [place] [address] Lydia Mac [address] [place] [address] documented as of this encounter Goals Goal Patient Goal Type Associated Problems Recent Progress Patient-Stated? Author Blood Pressure < 140/90 Blood Pressure 130/60(2024 10:46 AM EST) No Ramón Bolaños PharmD Hemoglobin A1c < 7 Result Component 7(08/04/2024 11:32 AM EST) No Ramón Bolaños PharmD documented as of this encounter Visit Diagnoses Diagnosis Dyslipidemia Other and unspecified hyperlipidemia documented in this encounter Additional Health Concerns Assessment Noted Time PHQ-9 Depression Total Score: 0 04/07/20 24 11:45 AM EDT documented as of this encounter Care Teams Land Survey Technician Relationship Specialty Start Date End Date Bridgette Gandhi MD [address] [place] [address] PCP - General Family Medicine 07/01/12 Ramón Bolaños, Bradley [address] [place] [address] Pharmacist Internal Medicine 11/18/23 documented as of this encounter
--- OUTSIDE RECORDS SUMMARY | 2024-09-17 11:10 | XMS_ITS | Encounter Summary ---
Author Organization [employer] Address [address] [facility] 7[address] [place] [address] Care Team Providers Care Thermoplastic Technician Name Role Phone Bridgette Gandhi MD Primary Care Provider [phone] Ramón Bolaños PharmD Unavailable [phone] Encounter Details Date Type Department Care Team [...] Description 11/01/2024 10:30 AM EDT Office Visit [facility] [address] [place] [phone] Bridgette Gandhi MD [address] [place] [address] 01/06/2025 10:00 AM EDT Office Visit [facility] ADULT DENTAL [address] [place] [address] Lydia Mac [address] [place] [address] documented as of this encounter Goals Goal [...] documented as of this encounter Care Teams Thermoplastic Technician Relationship Specialty Start Date End Date Bridgette Gandhi MD [address] [place] [address] PCP - General Family Medicine 07/01/12 Ramón Bolaños, PharmD [address] [place] [address] Pharmacist Internal Medicine 11/18/23 documented as of this encounter
--- OUTSIDE RECORDS SUMMARY | 2024-09-17 11:10 | XMS_ITS | Encounter Summary ---
Author Organization [employer] [facility] Address [address] [facility] [address] [place] [address] Care Team Providers Care Ferris Wheel Attendant Name Role Phone Bridgette Gandhi MD Primary Care Provider [phone] Ramón Bolaños PharmD Unavailable [phone] Encounter Details Date Type Department Care Team (Late st Contact Info) Description 09/14/2024 Orders Only GENERIC EXTERNAL DATA DEPARTMENT Provider, Generic External Data Social History Tobacco Use Types Packs/Day Years [...] Description 11/01/2024 10:30 AM EDT Office Visit [facility] MED[facility]INE [address] [place] [address] Bridgette Gandhi MD [address] [place] [address] 01/06/2025 10:00 AM EDT Office Visit [facility] ADULT DENTAL [address] [place] [address] Lydia Mac [address] [place] [address] documented as of this encounter Goals Goal Patient Goal Type Associated Problems Recent Progress Patient-Stated? Author Blood Pressure < 140/90 Blood Pressure 130/60(2024 10:46 AM EST) No Ramón Bolaños, PharmJameson Hemoglobin A1c < 7 Result Component 7(08/04/2024 11:32 AM EST) No Ramón Bolaños PharmD documented as of this encounter Procedures Procedure Name Priority Date/Time Associated Diagnosis Comments GLUCOSE, WHOLE BLOOD Routine 09/14/2024 7:33 AM EST GLUCOSE, WHOLE BLOOD Routine 09/14/2024 6:16 AM EST CBC Routine 09/14/2024 5:25 AM EST BASIC METABOLIC PANEL Routine 09/14/2024 5:25 AM EST documented in this encounter Results * (ABNORMAL) Glucose, Whole Blood (09/14/2024 7:33 AM EST) Glucose, Whole Blood 116(H) 60 - 115 mg/dL [facility] Comment:METER #: [id number] 09/14/2024 7:33 AM EST 09/14/2024 7:37 AM EST Generic External Data Provider LAB BLOOD ORDERAB LES Final Result Performing Organization Address [facility]/ZIP Co de Phone Number [facility] [address] [place] [phone] * Glucose, Whole Blood (09/14/2024 6:16 AM EST) Pathologist [facility] Glucose, Whole Blood 115 60 - 115 mg/dL [facility] Comment:METER #: [id number] 09/14/2024 6:16 AM EST 09/14/2024 6:21 AM EST us Generic External Data Provider LAB BLOOD ORDERAB LES Final Result Performing Organization Address City/[facility]/ZIP Co de Phone Number [facility] [address] [place] [phone] * (ABNORMAL) Basic Metabolic Panel (09/14/2024 5:25 AM EST) Pathologist [facility] Sodium 140 135 - 145 mmol/L [facility] Potassium 3.5 3.3 - 5.1 mmol/L [facility] Chloride 106 96 - 108 mmol/L [facility] Carbon Dioxide 27 22 - 29 mmol/L [facility] Anion Gap 11(L) 12 - 20 [facility] Urea Nitrogen (BUN) 16 9 - 16 mg/dL [facility] Creatinine, Serum 0.82 0.5 - 1.4 mg/dL [facility] Creatinine Clr Calc Pharmacy 85.9 [facility] Comment:eGFR (calculated fro m the MDRD study equation) and eCrCl(calculated from the Cockcroft-Gault equation) are based ondifferent parameters and may not yield comparable results.If eCrCl result is absurd, please check patient'sheight/weight. Estimated Glomerular Filt Rate >60 [facility] Comment:Chronic Kidney Disea se: Estimated GFR < 60 mL/min/1.43u1Dpuxuq Kidney Disease: Estimated GFR < 15 mL/min/1.73m2 Glucose 108 60 - 115 mg/dL [facility] Calcium 8.6 8.4 - 10.2 mg/dL [facility] 09/14/2024 5:25 AM EST 09/14/2024 5:48 AM EST us Generic External Data Provider LAB BLOOD ORDERAB LES Final Result [facility] [address] [place] [phone] * (ABNORMAL) CBC (09/14/2024 5:25 AM EST) White Blood Count 10.8 4.8 - 10.8 X10*3/uL [facility] Red Blood Count 4.16(L) 4.60 - 5.80 X10*6/uL [facility] Hemoglobin 12.8(L) 14.0 - 18.0 g/dl [facility] Hematocrit 38.3(L) 42.0 - 52.0 % [facility] Mean Corpuscular Volume 92.1 80.0 - 98.0 fL [facility] Mean Corpuscular Hemoglobin 30.8 27.0 - 33.0 pg [facility] Mean Corpuscular HGB Conc 33.4 31.0 - 36.0 g/dl [facility] Red Cell Distribution Width 13.1 11.0 - 16.0 % [facility] Platelet Count 141(L) 160 - 400 X10*3/uL [facility] Mean Platelet Volume 12.3 9.4 - 12.4 fL [facility] NRBC Pct Auto 0.0 0.0 - 0.2 /100WBC [facility] NRBC Abs Auto 0.000 0.0 - 0.012 X10*3/uL [facility] 09/14/2024 5:25 AM EST 09/14/2024 5:48 AM EST us Generic External Data Provider LAB BLOOD ORDERAB LES Final Result Performing Organization Address City/State/[facility] Co de Phone Number [facility] [address] [place] [phone] documented in this encounter Visit Diagnoses Not on filedocumented in this encounter Additional Health Concerns Assessment Noted Time PHQ-9 Depression Total Score: 0 04/07/20 24 11:45 AM EDT documented as of this encounter Care Teams Ferris Wheel Attendant Relationship Specialty Start Date End Date Bridgette Gandhi MD [address] [place] [address] PCP - General Family Medicine 07/01/12 Ramón Bolaños, MollyD [address] [place] [address] Pharmacist Internal Medicine 11/18/23 documented as of this encounter
--- OUTSIDE RECORDS SUMMARY | 2024-09-17 11:10 | XMS_ITS | Encounter Summary ---
Author Organization [employer] Address [address] [facility] 7t [place] [address] Care Team Providers Care Director Of Employee Development Name Role Phone Bridgette Gandhi MD Primary Care Provider [phone] Ramón Bolaños PharmD Unavailable [phone] Reason for Visit * Reason Comments Med Refill Encounter Details Date Type Department Care Team (Late st Contact Info) Description 06/07/2023 Refill [facility] [address] [place], [place] [phone] Bridgette Gandhi MD [address] [place], [place] [phone] Social History Tobacco Use Types Packs/Day Years [...] Description 11/01/2024 10:30 AM EDT Office Visit [facility] MEDICINE [address] [place] [address] Bridgette Gandhi MD [address] [place] [address] 01/06/2025 10:00 AM EDT Office Visit [facility] ADULT DENTAL [address] [place] [address] BubbaGregLydia [address] [place] [address] documented as of this encounter Visit Diagnoses Not on filedocumented in this encounter Additional Health Concerns Assessment Noted Time PHQ-9 Depression Total Score: 5 09/11/19 23 10:25 AM EST documented as of this encounter Care Teams Director Of Employee Development Relationship Specialty Start Date End Date Bridgette Gandhi MD [address] [place] [phone] PCP - General Family Medicine 07/01/12 Ramón Bolaños, PharmD [address] [place] [phone] Pharmacist Internal Medicine 11/18/23 documented as of this encounter
--- OUTSIDE RECORDS SUMMARY | 2024-09-17 11:10 | XMS_ITS | Encounter Summary ---
Author Organization [employer] Address [address] [facility] 7t [place] [address] Care Team Providers Care Brine Supervisor Name Role Phone Bridgette Gandhi MD Primary Care Provider [phone] Ramón Bolaños PharmD Unavailable [phone] Reason for Visit * Reason Comments Med Refill Encounter Details Date Type Department Care Team (Late st Contact Info) Description 03/10/2024 Refill [facility] [address] [place], [place] [phone] Bridgette Gandhi MD [address] [place], [place] [phone] Social History Tobacco Use Types Packs/Day Years [...] the past 12 months, has t he [employer], gas, oil or water company threatened to [...] 10:30 AM EDT Office Visit [facility] [address] [place] [phone] Bridgette Gandhi MD [address] [place] [address] 01/06/2025 10:00 AM EDT Office Visit [facility] ADULT DENTAL [address] [place] [address] Lydia Mac [address] [place] [address] documented as of this encounter Goals Goal [...] documented as of this encounter Care Teams Brine Supervisor Relationship Specialty Start Date End Date Bridgette Gandhi MD [address] [place] [address] PCP - General Family Medicine 07/01/12 Ramón Bolaños, Bradley [address] [place] [address] Pharmacist Internal Medicine 11/18/23 documented as of this encounter
--- OUTSIDE RECORDS SUMMARY | 2024-09-17 11:10 | XMS_ITS | Encounter Summary ---
Author Organization [employer] [facility] Address [address] [place] [address] 7t [place] [address] Care Team Providers Care Pressure Tank Operator Name Role Phone Bridgette Gandhi MD Primary Care Provider [phone] Ramón Bolaños PharmD Unavailable [phone] Encounter Details Date Type Department Care Team (Late st Contact Info) Description 07/30/2022 Abstract [facility] ADULT DENTAL [address] [place], [place] [phone] Lydai Mac [address] [place] [address] Social History Tobacco Use Types Packs/Day Years [...] Description 11/01/2024 10:30 AM EDT Office Visit [facility] [address] [place], [place] [phone] Bridgette Gandhi MD [address] [place], [place] [phone] 01/06/2025 10:00 AM EDT Office Visit [facility] [address] [place], [place] [phone] Lydia Mac 230 [place] [address] documented as of this encounter Procedures Procedure [...] on filedocumented in this encounter Care Teams Pressure Tank Operator Relationship Specialty Start Date End Date Bridgette Gandhi MD [address] [place] [address] PCP - General Family Medicine 07/01/12 Ramón Bolaños PharmD [address] [place] [address] Pharmacist Internal Medicine 11/18/23 documented as of this encounter
--- OUTSIDE RECORDS SUMMARY | 2024-09-17 11:10 | XMS_ITS | Encounter Summary ---
Author Organization [facility] Address [address] [place] [address] 7t [place] [address] Care Team Providers Care Bank Secrecy Act Officer Name Role Phone Bridgette Gandhi MD Primary Care Provider [phone] Ramón Bolaños PharmD Unavailable [phone] Encounter Details Date Type Department Care Team (Late Contact Info) Description 04/30/2023 Abstract [facility] MEDICINE [address] [place] [address] [phone] Bridgette Gandhi MD [address] [place] [address] Social History Tobacco Use Types Packs/Day Years [...] Description 11/01/2024 10:30 AM EDT Office Visit [facility] MEDICINE [address] [place] [address] [phone] Bridgette Gandhi MD 230 [place] [address] 01/06/2025 10:00 AM EDT Office Visit [facility] ADULT DENTAL [address] [place] [address] Lydia Mac [address] [place] [address] documented as of this encounter Procedures Procedure [...] documented as of this encounter Care Teams Bank Secrecy Act Officer Relationship Specialty Start Date End Date Bridgette Gandhi MD [address] [place], [place] [phone] PCP - General Family Medicine 07/01/12 Ramón Bolaños, MollyD [address] [place] [address] [phone] Pharmacist Internal Medicine 11/18/23 documented as of this encounter
--- OUTSIDE RECORDS SUMMARY | 2024-09-17 11:10 | XMS_ITS | Encounter Summary ---
Author Organization [employer] Address [address] [facility] 7t [place] [address] Care Team Providers Care Franchise Business Consultant Name Role Phone Bridgette Gandhi MD Primary Care Provider [phone] Ramón Bolaños PharmD Unavailable [phone] Reason for Visit * Reason Onset Date Comments Medication Question 06/24/2024 Encounter Details Date Type Department Care Team (Late st Contact Info) Description 06/24/2024 Telephone [facility] MEDICINE [address] [place], [place] [phone] Bridgette Gandhi MD [address] [place], [place] [phone] Medication Question Social History Tobacco Use Types [...] broke. If any questions contact pt at [phone] documented in this encounter Plan of Treatment Upcoming Encounters Date Type Department Care Team (Late st Contact Info) Description 11/01/2024 10:30 AM EDT Office Visit [facility] MEDICINE [address] [place] [address] Bridgette Gandhi MD [address] [place] [address] 01/06/2025 10:00 AM EDT Office Visit [facility] ADULT DENTAL [address] [place] [address] Lydia Mac [address] [place] [address] documented as of this encounter Goals Goal [...] documented as of this encounter Care Teams Franchise Business Consultant Relationship Specialty Start Date End Date Bridgette Gandhi MD [address] [place] [address] PCP - General Family Medicine 07/01/12 Ramón Bolaños PharmD [address] [place] [address] Pharmacist Internal Medicine 11/18/23 documented as of this encounter
--- OUTSIDE RECORDS SUMMARY | 2024-09-17 11:10 | XMS_ITS | Encounter Summary ---
Author Organization [employer] Address [address] [facility] 7t [place] [address] Care Team Providers Care Guest Services Name Role Phone Bridgette Gandhi MD Primary Care Provider [phone] Ramón Bolaños PharmD Unavailable [phone] Reason for Visit * Reason Onset Date Comments Referral 08/27/2023 Encounter Details Date Type Department Care Team (Late st Contact Info) Description 08/27/2023 Telephone [facility] MEDICINE [address] [place], [place] [phone] Bridgette Gandhi MD [address] [place], [place] [phone] Referral Social History Tobacco Use Types Packs/Day [...] 08/27/2023 1:13 PM EST TC from pt's daughter/SPIDER ASSEMBLER requesting a renewal of Referral Date of original referral: 09/11/23 Location: [facility] (unsure of exact location) Date: 09/03/23 Time: 3:15 Fax: N/A Specialty: Orthopedic documented in this encounter Plan of Treatment Upcoming Encounters Date Type Department Care Team (Late st Contact Info) Description 11/01/2024 10:30 AM EDT Office Visit [facility] MEDICINE [address] [place] [address] Bridgette Gandhi MD [address] [place] [address] 01/06/2025 10:00 AM EDT Office Visit [facility] ADULT DENTAL [address] [place] [address] Bubba, Lydia [address] [place] [address] documented as of this encounter Visit Diagnoses Not on filedocumented in this encounter Additional Health Concerns Assessment Noted Time PHQ-9 Depression Total Score: 5 09/11/19 23 10:25 AM EST documented as of this encounter Care Teams Guest Services Relationship Specialty Start Date End Date Bridgette Gandhi MD [address] [place] [address] PCP - General Family Medicine 07/01/12 Ramón Bolaños, MollyD [address] [place] [address] [phone] Pharmacist Internal Medicine 11/18/23 documented as of this encounter
--- OUTSIDE RECORDS SUMMARY | 2024-09-17 11:10 | XMS_ITS | Encounter Summary ---
Author Organization [employer] [facility] Address [address] [facility] 7t [place] [address] Care Team Providers Care Staff Physician Name Role Phone Brdigette Gandhi MD Primary Care Provider [phone] Ramón Bolaños PharmD Unavailable [phone] Reason for Referral * Consultation (Routine) - Closed Specialty Diagnoses / Procedures Referred By Jj bro Referred To Contact Orthopaedic Surgery Diagnoses Primary osteoarthritis of both hips Primary osteoarthritis of both knees Bridgette Gandhi MD [address] [place] [address] Phone: tel: fax: [facility] [address] [place] [address] Drive [address] [place], [place] Phone: tel: fax: Referral ID Status Reason Start Date Expiration Date V isits Requested Visits Authorized [id number] Closed Specialty Services Required 02/23/2024 02/22/2025 1 1 Encounter Details Date Type Department Care Team (Late st Contact Info) Description 02/23/2024 Orders Only [facility] MEDICINE [address] [place] [address] [phone] Bridgette Gandhi MD [address] [place], [place] [phone] Primary osteoarthritis of both hips (Primary Dx); [...] Description 11/01/2024 10:30 AM EDT Office Visit [facility] [address] [place] [address] Bridgette Gandhi MD 230 [place], [place] [phone] 01/06/2025 10:00 AM EDT Office Visit [facility] ADULT DENTAL [address] [place] [address] Lydia Mac [address] [place] [address] Scheduled Referrals Name Type Priority Associated Diagnoses [...] documented as of this encounter Care Teams Staff Physician Relationship Specialty Start Date End Date Bridgette Gandhi MD [address] [place] [address] PCP - General Family Medicine 07/01/12 Ramón Bolaños PharmD [address] [place] [address] Pharmacist Internal Medicine 11/18/23 documented as of this encounter
--- OUTSIDE RECORDS SUMMARY | 2024-09-17 11:10 | XMS_ITS | Encounter Summary ---
Author Organization [employer] [facility] Address [address] [facility] 7t [place] [address] Care Team Providers Care Professor Of Industrial Technology Name Role Phone Bridgette Gandhi MD Primary Care Provider [phone] Ramón Bolaños PharmD Unavailable [phone] Encounter Details Date Type Department Care Team (Late st Contact Info) Description 08/22/2024 2:30 PM EST Office Visit [facility] MED[facility] [address] [place], [place] [phone] Bridgette Gandhi MD [address] [place], [place] [phone] Bladder stones (Primary Dx); Preop examination; Benign prostatic hyperplasia with lower urinary tract symptoms, symptom details unspecified; Controlled type 2 diabetes mellitus without complication, without long-term current use of insulin ([facility]); Hypertension, unspecified type; Obstructive sleep apnea syndrome; Moderate persistent asthma without complication; Chronic obstructive pulmonary disease, unspecified COPD type ([facility]/HCC) Social History Tobacco Use Types Packs/Day Years [...] Visit Benign prostatic hyperplasia - following with [facility] Urology - continue doxazosin and finasteride Diabetes mellitus type 2, controlled ([facility]) Dx 2013 -A1c 7.0% 08/04/24, patient has [...] to pt's questionable adherence - comanaged with net c developer, human geography faculty member, data capture clerk, and pharmacist - 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, negative Obstructive sleep apnea syndrome -Last sleep study on 07/22/2018. Dx SHANON -Restarted auto-PAP in 2019 -Currently followed by [facility] sleep clinic, last appointment in May 2023, auto-PAP 8-20 cm H2O -Continue current setting -Work on lifestyle modifications COPD (chronic obstructive pulmonary disease) ([facility]) - Last exacerbation due to Influenza B in September - October 2023, seen in ED twice, and received prednisone and azithromycin. - Mild bronchitic exacerbation in Jun 2024, treated with azithromycin. - Restarted seeing [facility] Pulmonology providers. Seen by Dr. Castillo on [...] Bladder stones - Primary - following with [facility] urology, last seen on 07/03/24 for cystoscopy [...] 7-10) FOR 5 DAYS Deep Sea Nasal Tropic 0.65 % nasal spray USE 1-2 SPRAYS [...] nostril at night Lancets (OneTouch Delica Plus [id number]) mis TEST BLOOD SUGAR TWICE DAILY latanoprost [...] -Restarted auto-PAP in 2019 -Currently followed by [facility] sleep clinic, last appointment in May 2023, auto-PAP 8-20 cm H2O -Continue current setting -Work on lifestyle modifications * Assessment & Plan Note - Bridgette Gandhi MD - 08/25/2024 2:39 PM ESTAssociated Problem(s): COPD (chronic obstructive pulmonary disease) ([facility]) - Last exacerbation due to Influenza B in September - October 2023, seen in ED twice, and received prednisone and azithromycin. - Mild bronchitic exacerbation in Jun 2024, treated with azithromycin. - Restarted seeing [facility] Pulmonology providers. Seen by Dr. Castillo on [...] to pt's questionable adherence - comanaged with net c developer, human geography faculty member, data capture clerk, and pharmacist - 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, negative * Assessment & Plan Note - Bridgette Gandhi MD - 08/25/2024 2:37 PM ESTAssociated Problem(s): Diabetes mellitus type 2, controlled ([facility]) Dx 2013 -A1c 7.0% 08/04/24, patient has [...] Problem(s): Benign prostatic hyperplasia - following with [facility] Urology - continue doxazosin and finasteride * Assessment & Plan Note - Bridgette Gandhi MD - 08/25/2024 2:37 PM ESTAssociated Problem(s): Bladder stones - following with [facility] urology, last seen on 07/03/24 for cystoscopy - continue adequate hydration - scheduled for bladder stone removal with Dr. Ayala documented in this encounter Plan of Treatment Upcoming Encounters Date Type Department Care Team (Late st Contact Info) Description 11/01/2024 10:30 AM EDT Office Visit [facility] MEDICINE [address] [place] [address] Bridgette Gandhi MD [address] [place], [place] [phone] 01/06/2025 10:00 AM EDT Office Visit [facility] ADULT DENTAL [address] [place], [place] [phone] Greg Macaris [address] [place] [address] Scheduled Orders Name Type Priority Associated Diagnoses Orde r Schedule Vitamin B12 (Cobalamin) and Folate Panel, Serum Lab Routine Controlled type 2 diabetes mellitus without complication, without long-term current use of insulin ([facility]) Expected: 08/25/2024 (Approximate), Expires: 08/25/2025 Lipid Panel [...] documented as of this encounter Care Teams Professor Of Industrial Technology Relationship Specialty Start Date End Date Bridgette Gandhi MD [address] [place] [address] PCP - General Family Medicine 07/01/12 Ramón Bolaños, MollyD [address] [place] [address] Pharmacist Internal Medicine 11/18/23 documented as of this encounter
--- OUTSIDE RECORDS SUMMARY | 2024-09-17 11:10 | XMS_ITS | Encounter Summary ---
Author Organization [employer] [facility] Address [address] [facility] 7t [place] [address] Care Team Providers Care Umbrella Cutter Name Role Phone Bridgette Gandhi MD Primary Care Provider [phone] Ramón Bolaños PharmD Unavailable [phone] Encounter Details Date Type Department Care Team (Latest Contact Info) Description 06/20/2022 Abstract [facility] Dental, Provider, DDS Social History Tobacco [...] 10:30 AM EDT Office Visit [facility] MEDICINE [address] [place] [address] Bridgette Gandhi MD [address] [place] [address] 01/06/2025 10:00 AM EDT Office Visit [facility] ADULT DENTAL 230 [place] [address] Lydia Mac [address] [place] [address] documented as of this encounter Visit Diagnoses Not on filedocumented in this encounter Care Teams Umbrella Cutter Relationship Specialty Start Date End Date Bridgette Gandhi MD [address] [place], [place] [phone] PCP - General Family Medicine 07/01/12 Ramón Bolaños, MollyD [address] [place] [address] Pharmacist Internal Medicine 11/18/23 documented as of this encounter
--- OUTSIDE RECORDS SUMMARY | 2024-09-17 11:10 | XMS_ITS | Encounter Summary ---
Author Organization [employer] Address [address] [facility] 7t [place] [address] Care Team Providers Care Drafter Apprentice Name Role Phone Bridgette Gandhi MD Primary Care Provider [phone] Ramón Bolaños PharmD Unavailable [phone] Encounter Details Date Type Department Care Team (Late st Contact Info) Description 09/12/2024 10:15 AM EST Office Visit [facility] [address] [place], [place] [phone] Zoe, Byron [address] [place], [place] [phone] Social History Tobacco Use Types Packs/Day Years [...] y.o. male. Time Out: Date: 09/12/2024 Location: [facility] Tooth: #32 Procedure: Exam Verified the above with patient, clinical assistant professor, and provider. Confirmed via patient's chart, intraorally and by radiographs. Warehouse General Laborer: not applicable 78 y.o. y/o male presents for limited exam with Dr. Byron Enriquez Medical history: Reviewed in EHR Vitals: There were no vitals taken for this visit. Allergies: Reviewed in EHR Medications: Reviewed in EHR Radiographs taken: PA and BW CHIEF COMPLAINT: Im in pain on my lower right side of the mouth Discussion: The patient was referred by [facility] for a dental visit. Pt with current [...] Caries control Provider: Dr. Byron Enriquez Dental Kitchen Food Server: Kevin Santos Attending: Dr. Morrow * Max Morrow DMD - 09/12/2024 10:15 AM EST Reviewed. Max Morrow DMD documented in this encounter Plan of Treatment Upcoming Encounters Date Type Department Care Team (Late st Contact Info) Description 11/01/2024 10:30 AM EDT Office Visit [facility] MEDICINE [address] [place] [address] Bridgette Gandhi MD [address] [place] [address] 01/06/2025 10:00 AM EDT Office Visit [facility] ADULT DENTAL [address] [place] [address] Lydia Mac [address] [place] [address] Scheduled Orders Name Type Priority Associated Diagnoses [...] documented as of this encounter Care Teams Drafter Apprentice Relationship Specialty Start Date End Date Bridgette Gandhi MD [address] [place] [address] PCP - General Family Medicine 07/01/12 Ramón Bolaños, Bradley [address] [place] [address] Pharmacist Internal Medicine 11/18/23 documented as of this encounter
--- OUTSIDE RECORDS SUMMARY | 2024-09-17 11:10 | XMS_ITS | Encounter Summary ---
Author Organization [employer] [facility] Address [address] [facility] 7t [place] [address] Care Team Providers Care Hack Driver Name Role Phone Bridgette Gandhi MD Primary Care Provider [phone] Ramón Bolaños PharmD Unavailable [phone] Reason for Visit * Reason Onset Date Comments ER Follow-up 05/26/2024 Nurse Triage 05/26/2024 Encounter Details Date Type Department Care Team (Late st Contact Info) Description 05/26/2024 Telephone [facility] [address] [place], [place] [phone] Bridgette Gandhi MD [address] [place] [address] ER Follow-up; Nurse Triage Social History Tobacco [...] Please assist with obtaining discharge summary for [facility] ED visit on 05/25/24 for provider review prior to upcoming appointment. Future Appointments Date Time Provider Department Center 05/27/2024 8:45 AM Jeremias Gong MD [facility] 01/11/2025 10:00 AM Susy Dixon PharmD [facility] * Telephone Encounter - Danii [place] RN [...] Center 05/27/2024 8:45 AM Jeremias Gong MD [facility] 01/11/2025 10:00 AM Susy Dixon PharmD [facility]IC[facility] Insurance verified as active per Real Time Eligibility in [place]. Video visit offered and caller accepted Positive Triage Question: * Patient wants to be seen * All higher-acuity triage questions were negative Care Advice Discussed: * Continue Treatment * Reasons To Call Back - You become worse * Telephone Encounter - Russell Dumas - 05/26/2024 2:13 PM EDT Patient calling to report ED visit on : Date: 05/25/24 Hospital: [facility] Seen for: Severe hip and thigh pain [...] 10:30 AM EDT Office Visit [facility] [address] [place] [address] Bridgette Gandhi MD [address] [place] [address] 01/06/2025 10:00 AM EDT Office Visit [facility] ADULT DENTAL [address] [place] [address] Lydia Mac [address] [place] [address] documented as of this encounter Goals Goal Patient Goal Type Associated Problems Recent Progress Patient-Stated? Author Blood Pressure < 140/90 Blood Pressure 130/60(2024 10:46 AM EST) No Ramón Bloaños PharmD Hemoglobin A1c < 7 Result Component 7(08/04/2024 11:32 AM EST) No Ramón Bolaños PharmD documented as of this encounter Visit Diagnoses Not on filedocumented in this encounter Additional Health Concerns Assessment Noted Time PHQ-9 Depression Total Score: 0 04/07/20 11:45 AM EDT documented as of this encounter Care Teams Hack Driver Relationship Specialty Start Date End Date Bridgette Gandhi MD [address] [place] [address] PCP - General Family Medicine 07/01/12 Ramón Bolaños PharmD [address] [place] [address] Pharmacist Internal Medicine 11/18/23 documented as of this encounter
--- OUTSIDE RECORDS SUMMARY | 2024-09-17 11:10 | XMS_ITS | Encounter Summary ---
Author Organization [employer] Address [address] [facility] [address] 7t [place] [address] Care Team Providers Care Hog Confinement System Manager Name Role Phone Bridgette Gandhi MD Primary Care Provider [phone] Ramón Bolaños PharmD Unavailable [phone] Encounter Details Date Type Department Care Team (Late st Contact Info) Description 08/22/2024 Abstract [facility] MEDICINE [address] [place], [place] [phone] [place] Social History Tobacco Use [...] 10:30 AM EDT Office Visit [facility] MEDICINE [address] [place] [address] Bridgette Gandhi MD [address] [place] [address] 01/06/2025 10:00 AM EDT Office Visit [facility] ADULT DENTAL [address] [place] [address] Bubba, Lydia [address] [place] [address] documented as of this encounter Goals Goal [...] documented as of this encounter Care Teams Hog Confinement System Manager Relationship Specialty Start Date End Date Bridgette Gandhi MD [address] [place] [address] PCP - General Family Medicine 07/01/12 Ramón Bolaños, Bradley [address] [place] [address] Pharmacist Internal Medicine 11/18/23 documented as of this encounter
--- OUTSIDE RECORDS SUMMARY | 2024-09-17 11:10 | XMS_ITS | Encounter Summary ---
Author Organization [employer] [facility] Address [address] [place] [address] Care Team Providers Care Cloth Beamer Name Role Phone Bridgette Gandhi MD Primary Care Provider [phone] Ramón Bolaños PharmD Unavailable [phone] Encounter Details Date Type Department Care Team (Late st Contact Info) Description 09/13/2024 Orders Only GENERIC EXTERNAL DATA DEPARTMENT Provider, [...] 11/01/2024 10:30 AM EDT Office Visit [facility] MEDICINE [address] [place] [address] Bridgette Gandhi MD [address] [place] [address] 01/06/2025 10:00 AM EDT Office Visit [facility] ADULT DENTAL [address] [place] [address] Lydia Mac [address] [place] [address] documented as of this encounter Goals Goal Patient Goal Type Associated Problems Recent Progress Patient-Stated? Author Blood Pressure < 140/90 Blood Pressure 130/60(2024 10:46 AM EST) No Ramón Bolaños, PharmJameson Hemoglobin A1c < 7 Result Component 7(08/04/2024 11:32 AM EST) No Ramón Bolaños PharmD documented as of this encounter Procedures Procedure Name Priority Date/Time Associated Diagnosis Comments GLUCOSE, WHOLE BLOOD Routine 09/13/2024 7:54 PM EST GLUCOSE, WHOLE BLOOD Routine 09/13/2024 4:55 PM EST GROSS AND MICROSCOPIC LEVEL 4 Routine 09/13/2024 11:10 AM EST GLUCOSE, WHOLE BLOOD Routine 09/13/2024 7:50 AM EST documented in this encounter Results * (ABNORMAL) Glucose, Whole Blood (09/13/2024 7:54 PM EST) Glucose, Whole Blood 181(H) 60 - 115 mg/dL [facility] Comment:METER #: [id number] 09/13/2024 7:54 PM EST 09/13/2024 8:15 PM EST Generic External Data Provider LAB BLOOD ORDERAB LES Final Result Performing Organization Address City/[facility]/ZIP Co de Phone Number [facility] [address] [place] [phone] * (ABNORMAL) Glucose, Whole Blood (09/13/2024 4:55 PM EST) Glucose, Whole Blood 127(H) 60 - 115 mg/dL [facility] Comment:METER #: [id number] 09/13/2024 4:55 PM EST 09/13/2024 4:59 PM EST Generic External Data Provider LAB BLOOD ORDERAB LES Final Result Performing Organization Address City/[facility]/ZIP Co de Phone Number [facility] [address] [place] [phone] * Gross and Microscopic Level 4 (09/13/2024 11:10 AM EST) 09/13/2024 11:1 0 AM EST 09/13/2024 12:20 PM EST Narrative [facility] - 09/15/2024 3:21 PM EST ----- ------- Name: Bharathi Walsh ? Age/Sex: 78/M ? : 1945 Unit#: [id number] ?? Attend Dr: Kishore Ayala MD ?Re09/13/24 ?Status: DEP SDC ? Location: HO.SSS ?Disch: ? ----- ------- SPEC : [id number] ?RECD: 09/13/24-0 ? STATUS: ??SOUT ? REQ NUM: [id number] ? ALDO: 09/13/24-1110 ? SUBM DR: Kishore Ayala MD ? ENTERED: ??09/13/24-9 ?SP TYPE: Surgical ? OTHR DR: Bridgette Gandhi MD ? ORDERED: ??Gross Micro L4 ? Diagnosis ?? Prostate, transurethral resection: ?- Nodular prostatic stromal hyperplasia (BPH). ?- Calculous material. ?Clinical History Calculus in bladder, benign prostatic hyperplasia ?Microscopic Description Microscopic sections reviewed. ? Material Received ?? Prostate and bladder stone ? Gross Description Received in formalin labeled ?prostate and bladder stone are multiple rubbery, cauterized, focally congested and hemorrhagic, clancy-berg and berg-pink fragments and of fibromuscular tissue ranging from minute to 0.6 cm in greatest dimension along with multiple berg calculi and scant red-maroon blood. ??The tissue fragments aggregate 2.0 x 2.0 x 0.45 cm and are submitted in toto in a cassette labeled A. ??The calculi fragments range from minute to 0.5 cm and aggregate 2.0 x 2.0 x 0.5 cm and are retained in formalin. ??CEDS This case was reviewed intradepartmentally. Copies To: ?? Kishore Ayala MD ?? [facility] ?? [address] [place] [address] [address] ?? [place] [address] ?? [phone] ?? [email or web address] ?? Bridgette Gandhi MD ?? [facility] ?? [address] ?? [place] [address] ?? [phone] ? CONTINUED ON NEXT PAGE ----- ------- Name: Bharathi Walsh ? Age/Sex: 78/M ? : 1945 Unit#: [id number] ?? Attend Dr: Kishore Ayala MD ?Re09/13/24 ?Status: DEP SDC ? Location: HO.SSS ?Disch: ? ----- ------- SPEC : [id number] ?RECD: 09/13/24-1220 ? STATUS: ??SOUT ? REQ NUM: [id number] ? ALDO: 09/13/24-1110 ? SUBM DR: Kishore Ayala MD ? ENTERED: ??09/13/24-1219 ?SP TYPE: Surgical ? OTHR DR: Bridgette Gandhi MD ? ORDERED: ??Gross Micro L4 ? ----- ------- Signed (signature on file) Jesse Stuart MD 09/15/24 1521 ? ----- ------- ? END OF REPORT ? Generic External Data Provider LAB CYTOLOGY ORDE RABLES Final Result Performing Organization Address [facility]/ZIP Co de Phone Number [facility] [address] [place], [place] [phone] * (ABNORMAL) Glucose, Whole Blood (09/13/2024 7:50 AM EST) Pathologist [facility] Glucose, Whole Blood 116(H) 60 - 115 mg/dL [facility] Comment:METER #: [id number] 09/13/2024 7:50 AM EST 09/13/2024 7:53 AM EST Generic External Data Provider LAB BLOOD ORDERAB LES Final Result Performing Organization Address [facility] Co de Phone Number [facility] [address] [place] [phone] documented in this encounter Visit Diagnoses Not on filedocumented in this encounter Additional Health Concerns Assessment Noted Time PHQ-9 Depression Total Score: 0 04/07/20 24 11:45 AM EDT documented as of this encounter Care Teams Cloth Beamer Relationship Specialty Start Date End Date Bridgette Gandhi MD [address] [place] [address] PCP - General Family Medicine 07/01/12 Ramón Bolaños PharmD [address] [place] [address] Pharmacist Internal Medicine 11/18/23 documented as of this encounter
--- OUTSIDE RECORDS SUMMARY | 2024-09-17 11:10 | XMS_ITS | Clinical Summary ---
Demographics Address [address] [place] [address] Mobile Phone Home Phone Mobile Phone Preferred Language es Marital Status Unknown Mormon Affiliation Unknown Race Unknown Ethnic Group Unknown Author Organization [facility] [address] [place] [phone] Phone Care Team Providers Care Engineer Assistant Name Role Phone Bridgette Gandhi MD Primary Care Provider Allergies Active Allergy Reactions Criticality Noted Date [...] Visit [facility] [address] [place] [phone] Gómez Colunga MD Hypertension [...] Visit [facility] [address] [place] [phone] Gómez Colunga MD [address] [facility] [address] [place] [phone] Health Maintenance Due Date Last Done Comments [...] patient's age to complete this topic Insurance [facility] DUAL COMPLETE ([id number]) [facility] DUAL COMPLETE ([id number]) Care Teams Engineer Assistant Relationship Specialty Start Date End Date Bridgette Gandhi MD [address] [place] [phone] PCP - General 08/27/20
--- OUTSIDE RECORDS SUMMARY | 2024-09-17 11:10 | XMS_ITS | Encounter Summary ---
Author Organization [employer] Address [address] 7[address] [place] [address] Care Team Providers Care Education Professor Name Role Phone Bridgette Gandhi MD Primary Care Provider [phone] Ramón Bolaños PharmD Unavailable [phone] Reason for Visit * Reason Onset Date Comments dme recliner 08/19/2024 Encounter Details Date Type Department Care Team (Late st Contact Info) Description 08/19/2024 Telephone [facility] MED[facility] [address] [place] [address] [place] Larson [place] dme recliner Social History [...] EST A new order was sumbitted through [employer] (order number [id number] * Telephone Encounter - Russell Dumas - 08/23/2024 4:21 PM EST Tc from [facility] stating they're unable to complete script for recliner and it would have to be sent to a different pharmacy. * Telephone Encounter - [place] Larson [place] - 08/19/2024 10:14 AM EST ..DME for Recliner signed and faxed to [email or web address] . Confirmation received and sent to scan. If patient calls to check status on above, please advise them to contact [email or web address] at [phone]. documented in this encounter Plan of Treatment Upcoming Encounters Date Type Department Care Team (Late st Contact Info) Description 11/01/2024 10:30 AM EDT Office Visit [facility] MEDICINE [address] [place] [address] Bridgette Gandhi MD [address] [place] [address] 01/06/2025 10:00 AM EDT Office Visit [facility] ADULT DENTAL [address] [place] [address] Bubba, Lydia [address] [place] [address] documented as of this encounter Goals Goal [...] documented as of this encounter Care Teams Education Professor Relationship Specialty Start Date End Date Bridgette Gandhi MD [address] [place] [phone] PCP - General Family Medicine 07/01/12 Ramón Bolaños PharmD [address] [place] [phone] Pharmacist Internal Medicine 11/18/23 documented as of this encounter
--- OUTSIDE RECORDS SUMMARY | 2024-09-17 11:10 | XMS_ITS | Encounter Summary ---
Author Organization [facility] Address [address] [place] [address] Care Team Providers Care Heater Engineer Helper Name Role Phone Bridgette Gandhi MD Primary Care Provider [phone] Ramón Bolaños PharmD Unavailable [phone] Reason for Visit * Reason Comments Dental Pain Encounter Details Date Type Department Care Team (Late st Contact Info) Description 08/24/2024 11:30 AM EST Office Visit [facility] ADULT DENTAL [address] [place], [place] [phone] Nyla Foster DDS [address] [place], [place] [phone] Caries of cervical margin of tooth (Primary [...] the past 12 months, has t he [employer], gas, oil or water [employer] threatened to shut off services in your [...] Timeout Time: 1047 (Dental Emergency Exam) Location: [facility] Tooth: Mandible and #32 Procedure: X-rays and Emergency Verified the above with patient, technical services assistant, and provider. Confirmed via patient's chart, intraorally and by radiographs. Ceo & Founder: not applicable Chief Complaint Patient presents with Dental Pain Medical Hx: Vitals: Blood pressure 130/60. Past Medical History: Diagnosis Date Allergies Arthritis Asthma Diabetes mellitus ([facility]) High cholesterol Hypertension Periodontal disease Medications: Outpatient [...] 7-10) FOR 5 DAYS Deep Sea Nasal [place] 0.65 % nasal spray USE 1-2 SPRAYS [...] 30 mL 12 Lancets (OneTouch Delica Plus [id number]) [facility] TEST BLOOD SUGAR TWICE DAILY 100 each [...] control pain and infection Prescriptions: Sent to [facility] on file Pt tolerated procedure well, all questions answered. Dismissed in good condition. NV: RCT / perio consult Electric Meter Installer Helper: Kevin Santos Dentist: Nyla Foster DDS documented in this encounter Miscellaneous Notes * Addendum Note - Nyla Foster DDS - 08/24/2024 11:30 AM ESTAddended by: NYLA FOSTER on: 08/24/2024 11:27 AM Modules accepted: Orders documented in this encounter Plan of Treatment Upcoming Encounters Date Type Department Care Team (Late st Contact Info) Description 11/01/2024 10:30 AM EDT Office Visit [facility] MEDICINE [address] [place] [address] Bridgette Gandhi MD [address] [place] [address] 01/06/2025 10:00 AM EDT Office Visit [facility] ADULT DENTAL [address] [place] [address] Lydia Mac [address] [place] [address] Scheduled Orders Name Type Priority Associated Diagnoses Orde r Schedule 32 32 ENDODONTICS - ENDODONTIC THERAPY (INCLUDING TREATMENT PLAN, CLINICAL PROCEDURES AND FOLLOW-UP CARE) - ENDODONTIC THERAPY, MOLAR TOOTH (EXCLUDING FINAL AMISH) Dental Routine [address] arting 08/24/2024 [...] documented as of this encounter Care Teams Heater Engineer Helper Relationship Specialty Start Date End Date Bridgette Gandhi MD [address] [place] [address] PCP - General Family Medicine 07/01/12 Ramón Bolaños PharmD [address] [place] [phone] Pharmacist Internal Medicine 11/18/23 documented as of this encounter
--- OUTSIDE RECORDS SUMMARY | 2024-09-17 11:10 | XMS_ITS | Clinical Summary ---
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 Apply to affected area twice a day 100 g 09/17/19 24 Active loratadine (Claritin) 10 MG tablet TAKE 1 TABLET BY MOUTH EVERY DAY 30 tablet 11 11/04/19 24 Active torsemide (Demadex) 20 MG [...] TEST BLOOD SUGAR TWICE DAILY 50 strip 12/07/19 24 Active metFORMIN XR (Glucophage-XR) 500 [...] TABLET BY MOUTH EVERY MORNING 90 tablet 02/08/20 24 Active Lancets (OneTouch Delica Plus [id number]) miscIndications: Type 2 diabetes mellitus without complications ([facility]) TEST BLOOD SUGAR TWICE DAILY 100 each [...] DIRECTED (APPLY TO MOST PAINFUL AREA) 05/25/20 Active Blood Glucose Monitoring Suppl (Blood Glucose Monitor System) w/Device kit Check sugar once daily and as needed 1 kit 06/24/20 Active hydrALAZINE (Apresoline) 50 MG tablet TAKE 1 TABLET BY MOUTH TWICE DAILY IN THE MORNING AND IN THE EVENING 06/30/20 24 Active fluticasone (Flonase) 50 MCG/ACT nasal spray INSTILL 1-2 SPRAYS IN EACH NOSTRIL ONCE DAILY IN THE MORNING 16 g 2 08/19/19 25 Active acetaminophen (Tylenol) 500 MG tablet Take 1 tablet (500 mg) by mouth every 6 (six) hours if needed for mild pain for up to 20 doses. 20 tablet 08/24/19 25 Active atorvastatin (Lipitor) 40 MG tabletIndication s:Dyslipidemia TAKE 1 TABLET BY MOUTH AT BEDTIME 30 tablet 11 09/16/19 25 Active acetaminophen (Tylenol) 325 MG tablet Patient reports purchasing OTC 025 Discontinued atorvastatin (Lipitor) 40 MG tabletIndication s:Dyslipidemia TAKE 1 TABLET BY MOUTH AT BEDTIME 30 tablet 11 09/30/19 24 025 Discontinued fluticasone (Flonase) 50 MCG/ACT nasal [...] (08/25/2024 2:37 PM EST): - following with [facility] urology, last seen on 07/03/24 for cystoscopy - continue adequate hydration - scheduled for bladder stone removal with Dr. Ayala Assessment & Plan (08/11/2024 6:19 AM EST): - following with [facility] urology, last seen on 07/03/24 for cystoscopy -recommended adequate hydration and following plan per urologist Fractured dental anabaptism with loss of materi al 08/01/2024 Caries [...] aorta measuring 4.00 cm - Followed by Educational Fundraising Director, monitor with echo every 6-12 months - Continue BP management Assessment & Plan (01/04/2024 11:35 AM EDT): - 11/26/23 Echo showed mild dilatation of the ascending aorta measuring 4.00 cm - Followed by Educational Fundraising Director, monitor with echo every 6-12 months - [...] Plan (11/04/2023 12:40 PM EDT): -[facility] Recommended to continue conservative management of compression stocking, DASH diet, and leg elevation. Discontinued Diltiazem due to possible side effects. -possible venous ablation -06/02/23 venous study showed b/l venous insufficiency. -recommended to discuss with his leveler helper and vascular specialist at [facility] for other treatment options, if appropriate -discontinued amlodipine and hydralazine recently - continue torsemide Assessment & Plan (08/14/2023 11:15 AM EST): -[facility] Recommended to continue conservative management of compression stocking, DASH diet, and leg elevation. Discontinued Diltiazem due to possible side effects. -possible venous ablation -06/02/23 venous study showed b/l venous insufficiency. -recommended to discuss with his leveler helper and vascular specialist at [facility] for other treatment options, if appropriate Assessment & Plan (05/11/2023 8:29 AM EDT): -[facility]. Recommended to continue conservative management of compression stocking, DASH diet, and leg elevation. Discontinued Diltiazem due to possible side effects. -possible venous ablation -schedule venous study Assessment & Plan (2022 9:36 AM EST): -[facility]. 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] to pt's questionable adherence - comanaged with leveler helper, configuration management manager, and pharmacist -?24-hr ambulatory BP monitor result [...] 2024, treated with azithromycin. - Restarted seeing [facility] Pulmonology providers. Seen by Dr. Castillo on [...] 2024, treated with azithromycin. - Restarted seeing [facility] Pulmonology providers. Seen by Dr. Castillo on [...] received prednisone and azithromycin. - Restarted seeing [facility] Pulmonology providers. Seen by Dr. Castillo on [...] Last exacerbation due to Influenza B in SeptemberOctober 2023, seen in ED twice, and received prednisone and azithromycin. - Restarted seeing [facility] Pulmonology providers. Seen by Dr. Castillo on [...] received prednisone and azithromycin. - Restarted seeing [facility] Pulmonology providers. Last seen by Dr. Castillo [...] PLAN FOR COPD (CHRONIC OBSTRUCTIVE PULMONARY DISEASE) ([facility]) WRITTEN ON 08/13/2023 4:56 AM BY BRIDGETTE FAGAN MD Last exacerbation due to CAP in Aug 2017 Following with [facility] pulmonology, Dr. Cruz Continue Advair as maintenance. [...] PLAN FOR COPD (CHRONIC OBSTRUCTIVE PULMONARY DISEASE) ([facility]) WRITTEN ON 05/11/2023 8:27 AM BY BRIDGETTE FAGAN MD Last exacerbation due to CAP in Aug 2017 Following with [facility] pulmonology, Dr. Cruz Continue Advair as maintenance. [...] to CAP in Aug 2017 Following with [facility] pulmonologyDr. Cruz Continue Advair as maintenance. Continue [...] -Restarted auto-PAP in 2019 -Currently followed by [facility] sleep clinic, last appointment in May 2023, auto-PAP 8-20 cm H2O -Continue current setting -Work on lifestyle modifications Assessment & Plan (08/04/2024 10:59 PM EST): -Last sleep study on 07/22/2018. Dx SHANON -Restarted auto-PAP in 2019 -Currently followed by [facility] sleep clinic, last appointment in May 2023, auto-PAP 8-20 cm H2O -Continue current setting -Work on lifestyle modifications Assessment & Plan (04/07/2024 11:48 AM EDT): -Last sleep study on 07/22/2018. Dx SHANON -Restarted auto-PAP in 2019 -Currently followed by [facility] sleep clinic, last appointment in May 2023, auto-PAP 8-20 cm H2O -Continue current setting -Work on lifestyle modifications Assessment & Plan (08/13/2023 4:54 AM EST): -Last sleep study on 07/22/2018. Dx SHANON -Restarted auto-PAP in 2019 -Currently followed by [facility] sleep clinic, last appointment in May 2023, auto-PAP 8-20 cm H2O -Continue current setting -Work on lifestyle modifications Assessment & Plan (05/11/2023 8:26 AM EDT): -Last sleep study on 07/22/2018. Dx SHANON -Restarted auto-PAP in 2019 -Currently followed by [facility] sleep clinic, last appt in 12/31/21, auto-PAP 8-20 cm H2O -Pt received new CPAP machine and now scheduled for Mask Fitting d/t pain on his head. -Continue current setting -Work on lifestyle modifications -Will request [facility] sleep medicine clinic to follow up and provide recommendation. Assessment & Plan (01/21/2023 10:57 AM EDT): -Last sleep study on 07/22/2018. Dx SHANON -Restarted auto-PAP in 2019 -Currently followed by [facility] sleep clinic, last appt in 11/13/22 , New CPAP was prescribed. APAP 8-20 cmH2O. -Continue current setting -Work on lifestyle modifications Assessment & Plan (2022 2:08 PM EST): -Last sleep study on 07/22/2018. Dx SHANON -Restarted auto-PAP in 2019 -Currently followed by [facility] sleep clinic, last appt in 12/31/21, auto-PAP 8-20 cm H2O -Pt received new CPAP machine and now scheduled for Mask Fitting d/t pain on his head. -Continue current setting -Work on lifestyle modifications -Will request [facility] sleep medicine clinic to follow up and provide recommendation. Assessment & Plan (09/24/2022 10:57 AM EST): -Last sleep study on 07/22/2018. Dx SHANON -Restarted auto-PAP in 2019 -Currently followed by [facility] sleep clinic, last appt in 12/31/21, auto-PAP [...] check with Lung Cancer screening program in [facility] for next CT scan schedule -Continue working [...] (08/25/2024 2:37 PM EST): - following with [facility] Urology - continue doxazosin and finasteride Assessment & Plan (08/11/2024 6:20 AM EST): - following with [facility] Urology - continue doxazosin and finasteride Assessment [...] Encounters Date Type Department Care Team Description 09/17/2024 Orders Only GENERIC EXTERNAL DATA DEPARTMENT Provider, Generic External Data 09/16/2024 Refill [facility] [address] [place] [address] Bridgette Fagan MD Dyslipidemia 09/14/2024 Orders Only GENERIC EXTERNAL DATA DEPARTMENT Provider, Generic External Data 09/13/2024 Orders Only GENERIC EXTERNAL DATA DEPARTMENT Provider, Generic External Data 09/12/2024 10:15 AM EST Office Visit [facility] [address] [place] [address] Byron Enriquez 08/25/[address] [address] Bridgette Fagan MD 08/24/2024 11:30 AM EST Office Visit [facility] [address] [place] [address] Amarjit Foster DDS Caries of cervical margin of tooth (Primary Dx); Odontalgia 08/22/2024 2:30 PM EST Office Visit [address] [address] Bridgette Fagan MD Bladder stones (Primary Dx); Preop examination; Benign prostatic hyperplasia with lower urinary tract symptoms, symptom details unspecified; Controlled type 2 diabetes mellitus without complication, without long-term current use of insulin ([facility]); Hypertension, unspecified type; Obstructive sleep apnea syndrome; Moderate persistent asthma without complication; Chronic obstructive pulmonary disease, unspecified COPD type ([facility]) 08/22/[address] [address] [place] Larson [place] 08/22/2024 Travel 08/19/[address] [address] [place] L[place] dme recliner 08/19/[address] [address] Bridgette Fagan MD 08/04/2024 11:00 AM EST Office Visit [address] [address] Bridgette Fagan MD Periodic limb movement disorder (PLMD) (Primary Dx); Obstructive sleep apnea syndrome; Lumbar radiculopathy; Chronic obstructive pulmonary disease, unspecified COPD type ([facility]); Hypertension, unspecified type; Controlled type 2 diabetes mellitus without complication, without long-term current use of insulin ([facility]); Tremor; Benign prostatic hyperplasia with lower urinary tract symptoms, symptom details unspecified; Lower urinary tract symptoms (LUTS); Bladder stones; Memory difficulties; 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 ([facility]) 08/04/[address] [address] Bridgette Fagan MD Pre-op Exam 08/04/2024 Travel 08/01/2024 9:30 AM EST Office Visit [facility] [address] [place] [address] Amarjit Foster DDS Fractured dental anabaptism with loss of material (Primary Dx) 07/25/[address] [address] Bridgette Fagan MD chart prep 07/08/2024 9:00 AM EST Office Visit [facility] [address] [place] [address] Lydia Mac Dental caries into pulp (Primary Dx); Dental plaque; Staining (discoloration) of teeth 06/24/2024 Orders Only [address] [address] Bridgette Fagan MD 06/24/[address] [address] Bridgette Fagan MD Medication Question from Last [...] Description 11/01/2024 10:30 AM EDT Office Visit [facility] [address] [place] [phone] Bridgette Fagan MD [address] [place] [address] 01/06/2025 10:00 AM EDT Office Visit [facility] [address] [place] [address] Greg Macaris [address] [place] [address] Health Maintenance Due Date Last Done Comments Hepatitis C Screening 10/16/1963 Zoster Vaccines (2 of 3) 06/22/2017 04/27/2017 RSV Patients and Patients Aged 60 years or older (1 - 1-dose 75+ series) 2020 DTaP/Tdap/Td Vaccines (2 - Td or Tdap) 09/14/2023 09/14/2013, 01/23/1997, 01/23/1997 COVID-19 Vaccine ( - season) 2024 Influenza Vaccine (#1) 2024 0, [...] 06/24/2023 Eye Exam 06/29/2026 06/29/2024 Pneumococcal Vaccine: 50+ Years Completed 04/13/2015, 08/08/2013, 05/07/2006 Hepatitis B [...] 11:32 AM EST) No Ramón Bolaños PharmD Procedures Procedure Name Priority Date/Time Associated Diagnosis Comments URINALYSIS, COMPLETE, WITH REFLEX TO CULTURE Routine 09/17/2024 10:55 AM EST GLUCOSE, WHOLE BLOOD Routine 09/14/2024 7:33 AM EST GLUCOSE, WHOLE BLOOD Routine 09/14/2024 6:16 AM EST BASIC METABOLIC PANEL Routine 09/14/2024 5:25 AM EST CBC Routine 09/14/2024 5:25 AM EST GLUCOSE, WHOLE BLOOD Routine 09/13/2024 7:54 PM EST GLUCOSE, WHOLE BLOOD Routine 09/13/2024 4:55 PM EST GROSS AND MICROSCOPIC LEVEL 4 Routine 09/13/2024 11:10 AM EST GLUCOSE, WHOLE BLOOD Routine 09/13/2024 7:50 AM EST [employer] - PROFESSIONAL [...] complication, without long-term current use of insulin ([facility]) POCT GLUCOSE Routine 08/04/2024 11:31 AM EST Controlled type 2 diabetes mellitus without complication, without long-term current use of insulin ([facility]) ADJUNCTIVE GENERAL SERVICES - PROFESSIONAL VISITS - [...] COMPOSITE FILLING Routine 07/08/2024 12:00 AM EST HM DIABETES EYE EXAM Routine 06/29/2024 LDCT LUNG SCREENING Routine 12/22/2023 9 :58 AM EDT LIPID PANEL WITH REFLEX TO DIRECT LDL Routine 11/18/2023 8:40 AM EDT Hypertension, unspecified type Dyslipidemia ALBUMIN, RANDOM URINE W/CREATININE Routine 11/18/2023 8:35 AM EDT Controlled type 2 diabetes mellitus without complication, without long-term current use of insulin ([facility]) from Last 3 Months or Most Recently Relevant to Health Maintenance Results * (ABNORMAL) Urinalysis, Complete, with Reflex to Culture (09/17/2024 10:55 AM EST) Color Urine Yellow [facility] Appearance Urine Clear [facility] PH 5.5 5.0 - 9.0 [facility] Glucose Urine UA Negative Negative mg/dL [facility] Urine Blood Large (3+)(A) Negative [facility] Specific [place] - Urine 1.010 1.005 - 1.025 [facility] Urine Protein 100 (2+)(A) Neg-Trace mg/dL [facility] Urine Ketones Negative Negative mg/dL [facility] Nitrite Urine Negative Negative [facility] Leukocyte Esterase Urine Moderate (2+)(A) Negative [facility] 09/17/2024 10:5 5 AM EST 09/17/2024 11:02 AM EST Narrative [facility] - 09/17/2024 11:08 AM EST Urine, [place] us Generic External Data Provider LAB URINE ORDERAB LES Final Result [facility] [address] [place] [address] [phone] * (ABNORMAL) Glucose, Whole Blood (09/14/2024 7:33 AM EST) Only the most recent of5 resultswithin the time period is included. Glucose, Whole Blood 116(H) 60 - 115 mg/dL [facility] Comment:METER #: [id number] 09/14/2024 7:33 AM EST 09/14/2024 7:37 AM EST us Generic External Data Provider LAB BLOOD ORDERAB LES Final Result Performing Organization Address [facility]/ZIP Co de Phone Number [facility] [address] [place] [phone] * (ABNORMAL) CBC (09/14/2024 5:25 AM EST) White Blood Count 10.8 4.8 - 10.8 X10*3/uL [facility] Red Blood Count 4.16(L) 4.60 - 5.80 X10*6/uL [facility] Hemoglobin 12.8(L) 14.0 - 18.0 g/dl [facility] Hematocrit 38.3(L) 42.0 - 52.0 % [facility] Mean Corpuscular Volume 92.1 80.0 - 98.0 fL [facility] Mean Corpuscular Hemoglobin 30.8 27.0 - 33.0 pg [facility] Mean Corpuscular HGB Conc 33.4 31.0 - 36.0 g/dl [facility] Red Cell Distribution Width 13.1 11.0 - 16.0 % [facility] Platelet Count 141(L) 160 - 400 X10*3/uL [facility] Mean Platelet Volume 12.3 9.4 - 12.4 fL [facility] NRBC Pct Auto 0.0 0.0 - 0.2 /100WBC [facility] NRBC Abs Auto 0.000 0.0 - 0.012 X10*3/uL [facility] 09/14/2024 5:25 AM EST 09/14/2024 5:48 AM EST us Generic External Data Provider LAB BLOOD ORDERAB LES Final Result Performing Organization Address [facility]/ZIP Co de Phone Number [facility] [address] [place] [address] [phone] * (ABNORMAL) Basic Metabolic Panel (09/14/2024 5:25 AM EST) Sodium 140 135 - 145 mmol/L [facility] Potassium 3.5 3.3 - 5.1 mmol/L [facility] Chloride 106 96 - 108 mmol/L [facility] Carbon Dioxide 27 22 - 29 mmol/L [facility] Anion Gap 11(L) 12 - 20 [facility] Urea Nitrogen (BUN) 16 9 - 16 mg/dL [facility] Creatinine, Serum 0.82 0.5 - 1.4 mg/dL [facility] Creatinine Clr Calc Pharmacy 85.9 [facility] Comment:eGFR (calculated fro m the MDRD study equation) and eCrCl(calculated from the Cockcroft-Gault equation) are based ondifferent parameters and may not yield comparable results.If eCrCl result is absurd, please check patient'sheight/weight. Estimated Glomerular Filt Rate >60 [facility] Comment:Chronic Kidney Disea se: Estimated GFR < 60 mL/min/1.41r2Lkzrbh Kidney Disease: Estimated GFR < 15 mL/min/1.73m2 Glucose 108 60 - 115 mg/dL [facility] Calcium 8.6 8.4 - 10.2 mg/dL [facility] 09/14/2024 5:25 AM EST 09/14/2024 5:48 AM EST us Generic External Data Provider LAB BLOOD ORDERAB LES Final Result [facility] [address] [place] [address] [phone] * Gross and Microscopic Level 4 (09/13/2024 11:10 AM EST) 09/13/2024 11:1 0 AM EST 09/13/2024 12:20 PM EST Narrative [facility] - 09/15/2024 3:21 PM EST ----- ------- Name: Bharathi Walsh ? Age/Sex: 78/M ? : 1945 Unit#: [id number] ?? Attend Dr: Kishore Ayala MD ?Re09/13/24 ?Status: DEP SDC ? Location: HO.SSS ?Disch: ? ----- ------- SPEC : [id number] ?RECD: 09/13/24-1219 ? STATUS: ??SOUT ? REQ NUM: [id number] ? ALDO: 09/13/24-1110 ? SUBM DR: Kishore Ayala MD ? ENTERED: ??09/13/24-1218 ?SP TYPE: Surgical ? OTHR DR: Bridgette Fagan MD ? ORDERED: ??Gross Micro L4 ? [...] Copies To: ?? Kishore Ayala MD ?? [facility] Urology Services ?? [address] [place] [address] [address] ?? [place] [address] ?? [phone] ?? [email or web address] ?? Bridgette Fagan MD ?? [facility] ?? [address] ?? [place] [address] ?? [phone] ? CONTINUED ON NEXT PAGE ----- ------- Name: Bharathi Walsh ? Age/Sex: 78/M ? : 1945 Unit#: [id number] ?? Attend Dr: Kishore Ayala MD ?Re09/13/24 ?Status: DEP SDC ? Location: HO.SSS ?Disch: ? ----- ------- SPEC : [id number] ?RECD: 09/13/24-0 ? STATUS: ??SOUT ? REQ NUM: [id number] ? ALDO: 09/13/24-1110 ? SUBM DR: Kishore Ayala MD ? ENTERED: ??09/13/24-9 ?SP TYPE: Surgical ? OTHR DR: Bridgette Fagan MD ? ORDERED: ??Gross Micro L4 ? ----- ------- Signed (signature on file) Jesse Stuart MD 09/15/24 1521 ? ----- ------- ? END OF REPORT ? us Generic External Data Provider LAB CYTOLOGY ORDE RABLES Final Result [facility] [address] [place] [phone] * (ABNORMAL) POCT glycosylated hemoglobin (Hgb A1c) (08/04/2024 11:32 AM EST) Hemoglobin A1C 7.0(A) 4.0 - 6.0 % QC Media Lot # [id number] Lot# Expiration Date [id number] Blood Capillary blood specimen / Unknown 08/04/2024 11:32 AM EST Bridgette Fagan MD POINT OF CARE TEST ENTER/EDIT OR DERABLES Final Result * POCT glucose manually resulted (08/04/2024 11:31 AM EST) Glucose Blood, POC 115 60 - 200 mg/dL QC Media Lot # [id number] Lot# Expiration Date Blood Capillary blood specimen / Unknown 08/04/2024 11:31 AM EST Bridgette Fagan MD POINT OF CARE TEST ENTER/EDIT OR DERABLES Final Result * Hm Diabetes Eye Exam (06/29/2024) Eye Exam Normal Normal 06/29/2024 Historical Provider HEALTH MAINTENANCE Final Result * CT Lung Screening Low dose (12/22/2023 9:58 AM EDT) Anatomical Region Laterality Modality Lung Computed Tomogra phy 12/22/2023 9:58 AM EDT Narrative 12/27/2023 11:40 PM EDT ? [facility] ?[address] ?[place] [address] ? CT Scan Report ? Signed ? Patient: Bharathi Walsh ?M ?? R#: [id number] ? : 1945 ?Acct:[id number] ? Age/Sex: 78 / M ?ADM Date: 12/22/23 ? Loc: HO.CT ? Attending Dr: Tc Castillo MD ? Ordering Physician: Tc Castillo MD ?? Date of Service: 12/22/23 ?? Procedure(s): CT lung screening ?? Accession Number(s): [id number] ? cc: Tc Castillo MD; Bridgette Fagan [...] for CT CHEST LOW DOSE CANCER SCREENING ([id number]) ?? can be placed. ? Dictated By: ?Kun Enciso MD ? Signed By: ?<Electronically signed by Kun Enciso MD in OV> ? 12/27/236 ? DD/ 0958 ? TD/TT: ? Machinery Mover: SS ? Procedure Note Donotuseinterpreter, Image - 12/27/[address] [address] [address] Scan Report Signed Patient: Shalom Walsh R#: [id number] : 6Acct:[id number] Age/Sex: 78 / MADM Date: 12/22/23 Loc: HO.CT Attending Dr: Tc Castillo MD Ordering Physician: Tc Castillo MD Date of Service: 12/22/23 Procedure(s): CT lung screening Accession Number(s): [id number] cc: Tc Castillo MD; Bridgette Fagan MD [...] for CT CHEST LOW DOSE CANCER SCREENING ([id number]) can be placed. Dictated By: Kun Enciso MD Signed By: <Electronically signed by Kun Enciso MD in OV> 12/27/23 2336 DD/ 0958 TD/TT: Machinery Mover: ANGELA [facility] External Provider IMG CT PROCEDURES Edited Result - Final * Lipid Panel with Reflex to Direct LDL (11/18/2023 8:40 AM EDT) Triglycerides 96 <150 mg/dL [facility] Comment:Desirable Triglyceri de: less than 150 mg/dLBorderline High Triglyceride 150-199 mg/dLHigh Triglyceride: 200-499 mg/dLVery High Triglyceride: greater than or equal to 5OO mg/dL Cholesterol 136 <200 mg/dL [facility] Comment:Desirable Cholestero l: less than 200 mg/dLBorderline High Cholesterol: 200-239 mg/dLHigh Cholesterol: greater than 239 mg/dL LDL Cholesterol Calculated 75 <100 mg/dL [facility] Comment:Desirable LDL: less than 100 mg/dLNear Optimal/Above Optimal LDL: 110- 129 mg/dLBorderline High LDL: 130-159 mg/dLHigh LDL: 160-189 mg/dLVery High LDL: greater than or equal to 190 mg/dL HDL Cholesterol 42 >40 mg/dL [facility] Comment:Desirable HDL: great er than 40 mg/dL Note: This HDL assay may give artificially low results in patients with liver disease. Blood 11/18/2023 8:40 AM EDT 11/18/2023 11:14 AM EDT us Bridgette Fagan MD LAB BLOOD ORDERABLES Final Resul t Performing Organization Address City/[facility] Co de Phone Number [facility] [address] [place] [address] [phone] * Albumin, Random Urine W/Creatinine (11/18/2023 8:35 AM EDT) Creatinine, Urine 119.50 mg/dL [facility] Microalbumin Urine 12.0 mg/L [facility] Microalbum Creatinine Ratio Ur 10.0 <30 ug/mg cr [facility] Comment:Albumin/Creatinine R atio Reference Ranges: Normal: < 30 ug/mg creatinine Microalbuminuria: 30 - 300 ug/mg creatinineClinical Albuminuria: > 300 ug/mg creatinine Urine 11/18/2023 8:35 AM EDT 11/18/2023 11:38 AM EDT us Bridgette Fagan MD LAB URINE ORDERABLES Final Resul t Performing Organization Address City/[facility]/ZIP Co de Phone Number [facility] [address] [place] [address] [phone] from Last 3 Months or Most Recently Relevant to Health Maintenance Insurance [facility] * Guarantor: Bharathi Walsh Account Type Relation to Patient Date of Phone Billing Address Personal/Family Self [address] [place] [address] * Guarantor: Bharathi Walsh Account Type Relation to Patient Date of Phone Billing Address Personal/Family Self [address] [place] [address] * Guarantor: Bharathi Walsh Account Type Relation to Patient Date of Phone Billing Address Personal/Family Self [address] [place] [address] Care Teams Machine Hostler Relationship Specialty Start Date End Date Bridgette Fagan MD [address] [place] [address] PCP - General Family Medicine 07/01/12 Ramón Bolaños, PharmD [address] [place] [address] Pharmacist Internal Medicine 11/18/23
--- OUTSIDE RECORDS SUMMARY | 2024-09-17 11:10 | XMS_ITS | Encounter Summary ---
Author Organization [employer] [facility] Address [address] [place] [address] 7t [place] [address] Care Team Providers Care Sports Marketing Specialist Name Role Phone Bridgette Gandhi MD Primary Care Provider [phone] Ramón Bolaños PharmD Unavailable [phone] Encounter Details Date Type Department Care Team (Late st Contact Info) Description 07/31/2022 Abstract [facility] ADULT DENTAL [address] [place], [place] [phone] Lydia Mac [address] [place] [address] Social History Tobacco Use Types Packs/Day Years [...] 10:30 AM EDT Office Visit [facility] MEDICINE [address] [place], [place] [phone] Bridgette Gandhi MD [address] [place], [place] [phone] 01/06/2025 10:00 AM EDT Office Visit [facility] ADULT DENTAL [address] [place], [place] [phone] Lydia Mac [address] [place] [address] documented as of this encounter Visit Diagnoses Not on filedocumented in this encounter Care Teams Sports Marketing Specialist Relationship Specialty Start Date End Date Bridgette Gandhi MD [address] [place] [address] PCP - General Family Medicine 07/01/12 Ramón Bolaños, Bradley [address] [place] [address] Pharmacist Internal Medicine 11/18/23 documented as of this encounter
--- OUTSIDE RECORDS SUMMARY | 2024-09-17 11:10 | XMS_ITS | Encounter Summary ---
Author Organization [employer] [facility] Address [address] [facility] 7t [place] [address] Care Team Providers Care Combination Man Name Role Phone Bridgette Gandhi MD Primary Care Provider [phone] Ramón Bolaños PharmD Unavailable Encounter Details Date Type Department Care Team (Late st Contact Info) Description 06/26/2023 Abstract [facility] ADULT DENTAL [address] [place] [address] Amarjit Foster DDS [address] [place] [address] Social History Tobacco Use Types Packs/Day Years [...] Description 11/01/2024 10:30 AM EDT Office Visit [facility] MEDICINE [address] [place] [address] Bridgette Gandhi MD [address] [place] [address] 01/06/2025 10:00 AM EDT Office Visit [facility] ADULT DENTAL [address] [place] [address] Lydia Mac [address] [place] [address] documented as of this encounter Visit Diagnoses Not on filedocumented in this encounter Additional Health Concerns Assessment Noted Time PHQ-9 Depression Total Score: 5 09/11/19 23 10:25 AM EST documented as of this encounter Care Teams Combination Man Relationship Specialty Start Date End Date Bridgette Gandhi MD [address] [place] [address] PCP - General Family Medicine 07/01/12 Ramón Bolaños, Bradley [address] [place] [address] Pharmacist Internal Medicine 11/18/23 documented as of this encounter
--- OUTSIDE RECORDS SUMMARY | 2024-09-17 11:10 | XMS_ITS | Encounter Summary ---
Author Organization [employer] Address [address] [facility] 7t [place] [address] Care Team Providers Care Produce Laborer Name Role Phone Bridgette Gandhi MD Primary Care Provider [phone] Ramón Bolaños PharmD Unavailable [phone] Encounter Details Date Type Department Care Team (Late st Contact Info) Description 06/24/2024 Orders Only [facility] MEDICINE [address] [place], [place] [phone] Bridgette Gandhi MD 230 [place], [place] [phone] Social History Tobacco Use Types Packs/Day Years [...] 11/01/2024 10:30 AM EDT Office Visit [facility] MEDICINE [address] [place] [address] Bridgette Gandhi MD 230 [place] [address] 01/06/2025 10:00 AM EDT Office Visit [facility] ADULT DENTAL [address] [place] [address] Lydia Mac [address] [place] [address] documented as of this encounter Goals Goal [...] documented as of this encounter Care Teams Produce Laborer Relationship Specialty Start Date End Date Bridgette Gandhi MD [address] [place] [address] PCP - General Family Medicine 07/01/12 Ramón Bolaños, MollyD [address] [place] [address] Pharmacist Internal Medicine 11/18/23 documented as of this encounter
--- OUTSIDE RECORDS SUMMARY | 2024-09-17 11:10 | XMS_ITS | Encounter Summary ---
Author Organization [employer] Address [address] [facility] [address] 7t [place] [address] Care Team Providers Care Poultry Cutter Name Role Phone Bridgette Gandhi MD Primary Care Provider [phone] Ramón Bolaños PharmD Unavailable [phone] Encounter Details Date Type Department Care Team (Late st Contact Info) Description 09/04/[address] [facility] MEDICINE [address] [place], [place] [phone] Bridgette Gandhi MD [address] [place], [place] [phone] Chronic pain of both knees (Primary Dx) [...] Description 11/01/2024 10:30 AM EDT Office Visit [facility] MEDICINE [address] [place] [address] Bridgette Gandhi MD [address] [place] [address] 01/06/2025 10:00 AM EDT Office Visit [facility] ADULT DENTAL [address] [place] [address] Bubba, Lydia [address] [place] [address] documented as of this encounter Visit Diagnoses Diagnosis Chronic pain of both knees- Primary documented in this encounter Additional Health Concerns Assessment Noted Time PHQ-9 Depression Total Score: 5 09/11/19 23 10:25 AM EST documented as of this encounter Care Teams Poultry Cutter Relationship Specialty Start Date End Date Bridgette Gandhi MD [address] [place] [address] PCP - General Family Medicine 07/01/12 Ramón Bolaños, MollyD [address] [place] [address] Pharmacist Internal Medicine 11/18/23 documented as of this encounter
--- OUTSIDE RECORDS SUMMARY | 2024-09-17 11:10 | XMS_ITS | Encounter Summary ---
Author Organization [employer] Address [address] [facility] 7t [place] [address] Care Team Providers Care Esl Tutor Name Role Phone Bridgette Gandhi MD Primary Care Provider [phone] Ramón Bolaños PharmD Unavailable [phone] Reason for Visit * Reason Onset Date Comments chart prep 08/19/2024 Encounter Details Date Type Department Care Team (Late st Contact Info) Description 08/19/2024 Refill [facility] MEDICINE [address] [place], [place] [phone] Bridgette Gandhi MD [address] [place], [place] [phone] Social History Tobacco Use Types Packs/Day Years [...] the past 12 months, has t he [employer] gas, oil or water company threatened to [...] Description 11/01/2024 10:30 AM EDT Office Visit [facility] MEDICINE [address] [place] [address] Bridgette Gandhi MD [address] [place] [address] 01/06/2025 10:00 AM EDT Office Visit [facility] ADULT DENTAL [address] [place] [address] Lydia Mac [address] [place] [address] documented as of this encounter Goals Goal [...] documented as of this encounter Care Teams Esl Tutor Relationship Specialty Start Date End Date Bridgette Gandhi MD [address] [place] [address] PCP - General Family Medicine 07/01/12 Ramón Bolaños PharmD [address] [place] [address] Pharmacist Internal Medicine 11/18/23 documented as of this encounter
--- OUTSIDE RECORDS SUMMARY | 2024-09-17 11:10 | XMS_ITS | Encounter Summary ---
Author Organization [employer] Address [address] [facility] 7t [place] [address] Care Team Providers Care China Decorator Name Role Phone Bridgette Gandhi MD Primary Care Provider Ramón Bolaños PharmD Unavailable [phone] Encounter Details Date Type Department Care Team (Late st Contact Info) Description 08/25/2024 Telephone [facility] MEDICINE [address] [place], [place] [phone] Bridgette Gandhi MD [address] [place], [place] [phone] Social History Tobacco Use Types Packs/Day Years [...] asked about patient's upcoming procedure. The surgical scrub technologist stated that patient is scheduled for TURP-bladder removal, and there will be no biopsy or prostatectomy during the procedure. Informed patient's daughter. documented in this encounter Plan of Treatment Upcoming Encounters Date Type Department Care Team (Late st Contact Info) Description 11/01/2024 10:30 AM EDT Office Visit [facility] MEDICINE [address] [place] [address] Bridgette Gandhi MD [address] [place] [address] 01/06/2025 10:00 AM EDT Office Visit [facility] ADULT DENTAL [address] [place] [address] Lydia Mac [address] [place] [address] documented as of this encounter Goals Goal [...] documented as of this encounter Care Teams China Decorator Relationship Specialty Start Date End Date Bridgette Gandhi MD [address] [place] [address] PCP - General Family Medicine 07/01/12 Ramón Bolaños PharmD [address] [place] [address] Pharmacist Internal Medicine 11/18/23 documented as of this encounter
--- OUTSIDE RECORDS SUMMARY | 2024-09-17 11:10 | XMS_ITS | Encounter Summary ---
Author Organization [employer] [facility] Address [address] [facility] 7t [place] [address] Care Team Providers Care Key Account Coordinator Name Role Phone Bridgette Gandhi MD Primary Care Provider [phone] Ramón Bolaños PharmD Unavailable [phone] Encounter Details Date Type Department Care Team (Late st Contact Info) Description 10/09/2022 Orders Only [facility] MEDICINE [address] [place] [address] Bridgette Gandhi MD [address] [place] [address] Spinal stenosis of lumbar region with neurogenic [...] Description 11/01/2024 10:30 AM EDT Office Visit [facility] MEDICINE [address] [place] [address] Bridgette Gandhi MD [address] [place] [address] 01/06/2025 10:00 AM EDT Office Visit [facility] ADULT DENTAL [address] [place], [place] [phone] Greg Macaris [address] [place] [address] documented as of this encounter Visit Diagnoses Diagnosis Spinal stenosis of lumbar region with neurogenic claudication- Primary documented in this encounter Additional Health Concerns Assessment Noted Time PHQ-9 Depression Total Score: 5 09/11/19 23 10:25 AM EST documented as of this encounter Care Teams Key Account Coordinator Relationship Specialty Start Date End Date [place] [address] PCP - General Family Medicine 07/01/12 Ramón Bolaños, PharmD [address] [place] [address] [phone] Pharmacist Internal Medicine 11/18/23 documented as of this encounter
--- OUTSIDE RECORDS SUMMARY | 2024-09-17 11:10 | XMS_ITS | Encounter Summary ---
Author Organization [facility] Address [address] [place] [address] 7t [place] [address] Care Team Providers Care Terminal Block Assembler Name Role Phone Bridgette Gandhi MD Primary Care Provider [phone] Ramón Bolaños PharmD Unavailable [phone] Reason for Referral * Consultation (Routine) - Pending Review Specialty Diagnoses / Procedures Referred By Jj bro Referred To Contact Pulmonary Disease Diagnoses Chronic obstructive pulmonary disease, unspecified COPD type (CMS/HCC) Obstructive sleep apnea syndrome Bridgette Gandhi MD [address] [place] [address] Phone: tel: fax: [facility] [place] [address] [place], [place] Phone: tel: fax: Referral ID Status Reason Start Date Expiration Date Visits Requested Visits Authorized [id number] Pending Review Specialty Services Required 09/22/2023 09/21/2024 1 1 Scheduling Instructions [facility] [place] Encounter Details Date Type Department Care Team (Late st Contact Info) Description 09/22/2023 Orders Only [facility] MEDICINE [address] [place], [place] [phone] Bridgette Gandhi MD [address] [place], [place] [phone] Chronic obstructive pulmonary disease, unspecified COPD type [...] Description 11/01/2024 10:30 AM EDT Office Visit [facility] MEDICINE [address] [place] [address] Bridgette Gandhi MD [address] [place] [address] 01/06/2025 10:00 AM EDT Office Visit [facility] ADULT DENTAL [address] [place] [address] Lydia Mac [address] [place] [address] Scheduled Referrals Name Type Priority Associated Diagnoses [...] documented as of this encounter Care Teams Terminal Block Assembler Relationship Specialty Start Date End Date Bridgette Gandhi MD [address] [place] [address] PCP - General Family Medicine 07/01/12 Ramón Bolaños, Bradley [address] [place] [address] Pharmacist Internal Medicine 11/18/23 documented as of this encounter
--- OUTSIDE RECORDS SUMMARY | 2024-09-17 11:10 | XMS_ITS | Encounter Summary ---
Author Organization [employer] Address [address] [facility] 7t [place] [address] Care Team Providers Care Bill Of Lading Clerk Name Role Phone Bridgette Gandhi MD Primary Care Provider [phone] Ramón Bolaños PharmD Unavailable [phone] Encounter Details Date Type Department Care Team (Late st Contact Info) Description 08/28/2023 Orders Only [facility] MEDICINE [address] [place], [place] [phone] Bridgette Gandhi MD [address] [place], [place] [phone] Social History Tobacco Use Types Packs/Day Years [...] Description 11/01/2024 10:30 AM EDT Office Visit [facility] MEDICINE [address] [place] [address] Bridgette Gandhi MD [address] [place] [address] 01/06/2025 10:00 AM EDT Office Visit [facility] ADULT DENTAL [address] [place] [address] Lydia Mac [address] [place] [address] documented as of this encounter Visit Diagnoses Not on filedocumented in this encounter Additional Health Concerns Assessment Noted Time PHQ-9 Depression Total Score: 5 09/11/19 23 10:25 AM EST documented as of this encounter Care Teams Bill Of Lading Clerk Relationship Specialty Start Date End Date Bridgette Gandhi MD [address] [place] [address] PCP - General Family Medicine 07/01/12 Ramón Bolaños, MollyD [address] [place] [address] Pharmacist Internal Medicine 11/18/23 documented as of this encounter
[2024-09-17 11:12] LABS: Bacteria Urine None Seen (None Seen); RBC Urine >20 /HPF (0-2); Squamous Epithelial Cell Urine 0-2 /HPF (0-2); UACC Culture Trigger YES
--- NOTE | 2024-09-17 11:37 | ED_ITS ---
HPI - Male Genitourinary General Chief complaint: Urogenital-Male Stated complaint: Dysuria, urinating around the [place] Time Seen by Provider: 09/17/24 11:37 History of Present Illness ED Provider: Kun Alcala DO HPI Narrative: 78-year-old male with past medical history of hypertension, type 2 diabetes, asthma/COPD, SHANON, ureteral stones, and most recent bladder calculus removal and partial transection of prostate performed on 09/13/[address] Ayala ( viewed note), discharged on 3 day course of ciprofloxacin and Pyridium which she completed who presents to the emergency department for dysuria, urinary frequency and leaking around the [place] site. History obtained with the assistance of in-person extrusion manager, Dipika. Patient denies fevers, rigors, flank pain, GI symptoms or testicular pain. Related Data Home Medications ?Medication ?Instructions ?Recorded ?Confirmed doxazosin 8 mg tablet 8 mg PO BEDTIME 06/19/20 09/13/24 latanoprost 0.005 % eye drops 1 drp ophthalmic (eye) QPM 06/19/20 09/13/24 loratadine 10 mg tablet (Allergy 10 mg PO DAILY 06/19/20 09/13/24 Relief (loratadine)) atorvastatin 40 mg tablet 40 mg PO BEDTIME 01/28/23 09/13/24 blood sugar diagnostic (OneTouch #10 ea 01/28/23 06/20/24 Ultra Test strips) finasteride 5 mg tablet 5 mg PO QAM 01/28/23 09/13/24 lancets #100 ea 01/28/23 06/20/24 lisinopril 40 mg tablet 40 mg PO DAILY@1200 01/28/23 09/13/24 metformin 500 mg tablet,extended 500 mg PO QPM 01/28/23 09/13/24 release 24 hr sertraline 25 mg tablet 25 mg PO QAM 01/28/23 09/13/24 cholecalciferol (vitamin D3) 25 25 mcg PO QAM 12/01/23 09/13/24 mcg (1,000 unit) tablet fluticasone propionate 50 1 - 2 spray intranasal QAM 09/13/24 09/13/24 mcg/actuation nasal spray,suspension hydralazine 50 mg tablet 50 mg PO BID 09/13/24 09/13/24 Previous Rx's ?Medication ?Instructions ?Recorded torsemide 20 mg tablet 20 mg PO QAM 30 days #30 tabs 05/02/24 umeclidinium 62.5 mcg-vilanterol 1 inh inhalation DAILY 30 days #1 05/31/24 25 mcg/actuation powdr for ea inhalation (Anoro Ellipta) albuterol sulfate 90 mcg/actuation 2 puff inhalation Q4-6H PRN 06/20/24 aerosol inhaler shortness of breath or wheezing #8.5 grams ciprofloxacin HCl 500 mg tablet 500 mg PO BID #6 tabs 09/14/24 (Cipro) oxycodone-acetaminophen 5 mg-325 1 tab PO Q6-8H PRN pain #6 tabs 09/14/24 mg tablet (Percocet) phenazopyridine 100 mg tablet 100 mg PO BID #10 tabs 09/14/24 (Pyridium) ciprofloxacin HCl 500 mg tablet 500 mg PO BID 5 days #10 tabs 09/17/24 Allergies Allergy/AdvReac Type Severity Reaction Status Date / Time Penicillins Allergy Intermediate RASH Verified 09/17/24 09:23 Carbapenems Allergy Unknown Unknown Verified 09/17/24 09:23 Cephalosporins Allergy Unknown Unknown Verified 09/17/24 09:23 enviormental Allergy Severe coughing Uncoded 09/17/24 09:23 and sneezing Review of Systems Review of Systems: Yes all other systems are reviewed and are negative [facility] Past Medical History Medical History Spondylosis of lumbar region without myelopathy or radiculopathy Low back pain HTN (hypertension) Arthritis History of back pain History of fatty infiltration of liver Seasonal allergies Elevated cholesterol Asthma Anxiety Depression Diabetes mellitus History of COVID-19 Allergic rhinitis SHANON (obstructive sleep apnea) Obesity Smoker Surgical History Hx of ventral hernia repair Hx of colonoscopy History of left cataract extraction History of cystoscopy Hx of umbilical hernia repair Family History Family History Mother No problems noted. Father No problems noted. Brother CAD (coronary artery disease) Sister Alzheimer disease Social History Social History Household Members: Other Household Members Other:: 2 roomates Housing: Apartment Are you a primary student career development specialist to a significant other at home: No Do you presently have visiting nurse or other home services: Yes Alcohol intake: never Patient Tobacco Use Status: Former Tobacco user Cigarette Packs Per Day: 0.5 Cigarettes Per Day: 10.0 Years Smoked: 60 +/- , quit- Oct 12 2023 Advance Directives: No Advance Directives Information Provided: No Do you have a plan to hurt others: No Plan Physical Exam Vital Signs: Vital Signs: Last Vital Signs Temp 98 F 09/17/24 09:21 Pulse 103 H 09/17/24 09:21 Resp 19 09/17/24 09:21 BP 98/58 L 09/17/24 09:21 Pulse Ox 93 09/17/24 09:21 O2 Del Method Room Air 09/17/24 09:21 BMI result Body Mass Index 39.2 Constitutional: ?Alert, oriented, speaking in full sentences HEENT: ?Normocephalic, atraumatic. ?Moist mucous membranes Eyes: ?PERRL, EOMI Neck: ?Supple, nontender Chest: ?No chest wall tenderness Respiratory: ?Lungs clear to auscultation, no increased work of breathing Cardio: ?Regular rate and rhythm GI: ?Soft, nondistended, nontender Back: ?Normal range of motion, no CVA tenderness to palpation or percussion : [place] catheter in place with dark yellow urine in bag. Small amount of packing noted sticking out of the meatus. Skin: ?No rash, no lesions Neuro: ?Alert and oriented to person, place and time, moves all 4 extremities, no focal deficits Extremities: ?No swelling or tenderness, full range of motion Psych: ?Calm, alert and cooperative, appropriate behavior Medical Decision Making Medical Decision Making MDM Narrative: Well-appearing 78-year-old male presenting with [place] catheter issues as well as signs and symptoms of cystitis. Patient's bladder scan today shows 21 mL and he is not retaining. He has no signs of clots or quentin red blood that require CBI at this time. Urinalysis suggests cystitis concurrent with the patient's symptoms. He received a 3 day course of ciprofloxacin. He is exhibiting no flank pain and I do not suspect pyelonephritis or ureteral stone. Case will be discussed with Urology to determine benefit of [place] catheter removal today and extended treatment for cystitis. 12:45: Case discussed with urology who agrees with plan of to extend ciprofloxacin for 5 additional days. This has been prescribed. I also agree with plan to remove [place] catheter at this time and have the patient follow up as scheduled on Thursday, 2 days from now for re-evaluation and assessment for urinary retention. Admission/Observation Consideration of admission/observation: Escalation of care including admission/observation considered Consult Healthcare Provider Management of the patient was discussed with: Software Administrator (Urologist) Lab Data Labs: Lab Results 09/17/24 Range/Units 10:55 Urine Color Yellow Urine Appearance Clear Urine pH 5.5 (5.0-9.0) Ur Specific [place] 1.010 (1.005-1.025) Urine Protein 100 (2+) H (Neg-Trace) mg/dL Urine Glucose (UA) Negative (Negative) mg/dL Urine Ketones Negative (Negative) mg/dL Urine Blood Large (3+) H (Negative) Urine Nitrite Negative (Negative) Ur Leukocyte Esterase Moderate (2+) H (Negative) Urine RBC >20 H (0-2) /HPF Urine WBC 11-20 H (0-5) /HPF Ur Squamous Epith Cells 0-2 (0-2) /HPF Urine Bacteria None Seen (None Seen) Hyaline Casts 3-5 (0-2) /LPF Discharge Plan Discharge Clinical Impression: Cystitis Complication of [place] catheter Qualifiers: Encounter type: initial encounter Qualified Code(s): T83.9XXA - Unspecified complication of genitourinary prosthetic device, implant and graft, initial encounter Patient Disposition: Home, Self-Care Instructions: Urinary Tract Infection in Men (ED) Prescriptions: New ciprofloxacin HCl 500 mg tablet 500 mg PO BID 5 Days Qty: 10 0RF No Action torsemide 20 mg tablet 20 mg PO QAM 30 Days Qty: 30 6RF Anoro Ellipta 62.5-25 mcg/actuation blister with device 1 inh inhalation DAILY 30 Days Qty: 1 6RF hydralazine 50 mg tablet 50 mg PO BID fluticasone propionate 50 mcg/actuation spray,suspension 1 - 2 spray intranasal QAM ciprofloxacin HCl [Cipro] 500 mg tablet 500 mg PO BID Qty: 6 0RF phenazopyridine [Pyridium] 100 mg tablet 100 mg PO BID Qty: 10 0RF oxycodone-acetaminophen [Percocet] 5-325 mg tablet 1 tab PO Q6-8H PRN (Reason: pain) Qty: 6 0RF Rx Instructions: Partial Fill upon patient request. doxazosin 8 mg tablet 8 mg PO BEDTIME latanoprost 0.005 % drops 1 drp ophthalmic (eye) QPM Rx Instructions: right eye loratadine [Allergy Relief (loratadine)] 10 mg tablet 10 mg PO DAILY cholecalciferol (vitamin D3) 25 mcg (1,000 unit) tablet 25 mcg PO QAM sertraline 25 mg tablet 25 mg PO QAM metformin 500 mg tablet extended release 24 hr 500 mg PO QPM atorvastatin 40 mg tablet 40 mg PO BEDTIME finasteride 5 mg tablet 5 mg PO QAM lisinopril 40 mg tablet 40 mg PO DAILY@1200 (DME) OneTouch Ultra Test Strip See Rx Instructions .ROUTE BID Qty: 10 Rx Instructions: As directed (DME) lancets Misc See Rx Instructions .ROUTE BID Qty: 100 Rx Instructions: As directed albuterol sulfate 90 mcg/actuation HFA aerosol inhaler 2 puff inhalation Q4-6H PRN (Reason: shortness of breath or wheezing) Qty: 8.5 6RF Print Language: Hungarian
[2024-09-17 13:38] VITALS: BP 98/58; PULSE 103; RESP 19; TEMP 36.6; O2SAT 93
== END 2024-09-17 13:38 | disposition home or self-care (01) ==
PROVIDERS: Emergency Provider Emergency Medicine; PCP Family Medicine
DX: N30.90 Cystitis, unspecified without hematuria (principal); Z46.6 Encounter for fitting and adjustment of urinary device
CPT/HCPCS: 81001; 87086; 99282; 99283; 99284

== ENCOUNTER → 2024-09-19 08:41 | Outpatient (BNVA) | payer OTHER, SELFPAY | PROVIDERS: PCP Family Medicine; Visit Provider Urology | DX: N40.1 Benign prostatic hyperplasia with lower urinary tract symptoms (principal); R35.0 Frequency of micturition; N21.0 Calculus in bladder | CPT/HCPCS: 51798 ==

== ENCOUNTER 2024-09-26 12:56 | Outpatient (AMB) | payer OTHER, SELFPAY ==
--- NOTE | 2024-09-26 13:05 | MHC.OFFVIS ---
Intake Visit Reasons: TURP, Bladder stone removal- follow up Intake Note: Patient is present for TURP, BLADDER STONE REMOVAL F/U Urology Medication:NONE Antibiotic Allergy:PENICILLIN Blood Thinner:NONE TODAY'S PVR 0ML'S Co Founder And Director Required: No Allergies Penicillins Allergy (Intermediate, Verified 09/26/24 13:07) RASH Carbapenems Allergy (Unknown, Verified 09/26/24 13:07) Unknown Cephalosporins Allergy (Unknown, Verified 09/26/24 13:07) Unknown enviormental Allergy (Severe, Uncoded 09/26/24 13:07) coughing and sneezing PFSH Medical History Spondylosis of lumbar region without myelopathy or radiculopathy Low back pain HTN (hypertension) Arthritis History of back pain History of fatty infiltration of liver Seasonal allergies Elevated cholesterol Asthma Anxiety Depression Diabetes mellitus History of COVID-19 Allergic rhinitis SHANON (obstructive sleep apnea) Obesity Smoker Surgical History Hx of ventral hernia repair Hx of colonoscopy History of left cataract extraction History of cystoscopy Hx of umbilical hernia repair Family History Mother No problems noted. Father No problems noted. Brother CAD (coronary artery disease) Sister Alzheimer disease Social History Household Members: Other Household Members Other:: 2 roomates Housing: Apartment Are you a primary field care advocate to a significant other at home: No Do you presently have visiting nurse or other home services: Yes Alcohol intake: never Patient Tobacco Use Status: Former Tobacco user Cigarette Packs Per Day: 0.5 Cigarettes Per Day: 10.0 Years Smoked: 60 +/- , quit- Oct 12 2023 Office Procedures Post Void Residual Post Residual Void Post Void Residual (PVR): 0 [id number] Void Residual by ultrasound Assessment & Plan Assessment & Plan Orders: Orders AMB Urinalysis Automated Today Z13.9 - Encounter for screening, unspecified Coding CPT Codes Post Residual Void - PVR CPT Code: [id number] Void Residual by ultrasound ([id number])
== END 2024-09-26 13:47 | disposition home or self-care (01) ==
PROVIDERS: PCP Family Medicine; Visit Provider Urology
DX: Z13.9 Encounter for screening, unspecified (principal)

== ENCOUNTER → 2024-09-26 12:56 | Outpatient (BNVA) | payer OTHER, SELFPAY | PROVIDERS: PCP Family Medicine; Visit Provider Urology | DX: N40.1 Benign prostatic hyperplasia with lower urinary tract symptoms (principal); N21.0 Calculus in bladder | CPT/HCPCS: 51798; 81003; 99212 ==

== ENCOUNTER 2024-10-19 08:25 | Outpatient (REF) | payer OTHER, SELFPAY ==
--- OUTSIDE RECORDS SUMMARY | 2024-10-19 09:00 | XMS_ITS | Clinical Summary ---
Author Organization [employer] Address [address] [facility] [address] [place] [address] Care Team Providers Care Lime Spreader Name Role Phone Bridgette Fagan MD Primary Care Provider [phone] Ramón Bolaños PharmD Unavailable [phone] Allergies Active Allergy Reactions Criticality Noted Date Comments Carbapenems Unknown 2023 Cephalosporins Unknown 2023 Penicillins Rash High 2023 Medications carvedilol (Coreg) 25 MG tablet Take 0.5 tablets by mouth 2 times daily. 2 Active latanoprost (Xalatan) 0.005 % ophthalmic solution INSTILL 1 DROP IN RIGHT EYE AT BEDTIME 2 Active albuterol 108 (90 Base) MCG/ACT inhaler Inhale 2 puffs every 6 (six) hours if needed for wheezing or shortness of breath. 18 g 3 3 Active sertraline (Zoloft) 25 MG tablet Take 25 mg by mouth in the morning. 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 4 Active Anoro Ellipta 62.5-25 MCG/ACT aerosol powder Inhale 1 puff in the morning. 4 Active doxazosin (Cardura) 8 MG tablet Take 0.5 tablets (4 mg) by mouth at bedtime. 30 tablet 11 4 Active lisinopril 40 MG tablet TAKE 1 TABLET BY MOUTH EVERY EVENING 90 tablet 3 4 Active OneTouch Ultra Test test strip TEST BLOOD SUGAR TWICE DAILY 50 strip 11 4 Active metFORMIN XR (Glucophage-XR) 500 MG 24 hr tablet TAKE 1 TABLET BY MOUTH EVERY EVENING WITH FOOD 30 tablet 11 4 Active magnesium oxide (Mag-Ox) 400 (240 Mg) MG tablet Take 400 mg by mouth Once per day. At bedtime. (Hold if loose stool occurs) 4 Active finasteride (Proscar) 5 MG tablet TAKE 1 TABLET BY MOUTH EVERY MORNING 90 tablet 3 4 Active cholecalciferol (Vitamin D-3) 25 MCG tablet TAKE 1 TABLET BY MOUTH EVERY MORNING 90 tablet 3 4 Active Lancets (OneTouch Delica Plus [id number]) miscIndications:T ype 2 diabetes mellitus without complications ([facility]) TEST BLOOD SUGAR TWICE DAILY 100 each 11 4 Active cyclobenzaprine (Flexeril) 5 MG tablet TAKE 1 TABLET BY MOUTH EVERY 8 HOURS NEEDED FOR PAIN (PAIN SCALE 7-10) FOR 5 DAYS 4 Active lidocaine (Lidoderm) 5 % patch APPLY 1 PATCH TOPICALLY TO SKIN, LEAVE ON FOR 12 HOURS AND OFF FOR 12 HOURS DIRECTED (APPLY TO MOST PAINFUL AREA) 4 Active Blood Glucose Monitoring Suppl (Blood Glucose Monitor System) w/Device kit Check sugar once daily and as needed 1 kit 4 Active hydrALAZINE (Apresoline) 50 MG tablet TAKE 1 TABLET BY MOUTH TWICE DAILY IN THE MORNING AND IN THE EVENING 4 Active fluticasone (Flonase) 50 MCG/ACT nasal spray INSTILL 1-2 SPRAYS IN EACH NOSTRIL ONCE DAILY IN THE MORNING 16 g 2 5 Active acetaminophen (Tylenol) 500 MG tablet Take 1 tablet (500 mg) by mouth every 6 (six) hours if needed for mild pain for up to 20 doses. 20 tablet 5 Active atorvastatin (Lipitor) 40 MG tabletIndications :Dyslipidemia TAKE 1 TABLET BY MOUTH AT BEDTIME 30 tablet 11 5 Active acetaminophen (Tylenol) 500 MG tablet Take 1 tablet (500 mg) by mouth every 6 (six) hours if needed for mild pain for up to 20 doses. 20 tablet 5 Active Active Problems Problem Noted Date Diagnosed Date Odontalgia 08/24/2024 Lower urinary tract symptoms (LUTS) 08/04/2024 Bladder stones 08/04/2024 Assessment & Plan (08/25/2024 2:37 PM EST): - following with [facility] urology, last seen on 07/03/24 for cystoscopy - continue adequate hydration - scheduled for bladder stone removal with Dr. 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 Recommended to continue conservative management of compression stocking, DASH diet, and leg elevation. Discontinued Diltiazem due to possible side effects. -possible venous ablation -06/02/23 venous study showed b/l venous insufficiency. -recommended to discuss with his manager of school and vascular specialist at [facility] for other treatment options, if appropriate -discontinued amlodipine and hydralazine recently - continue torsemide Assessment & Plan (08/14/2023 11:15 AM EST): -Se[facility] provider in Apr 2021. Recommended to continue conservative management of compression stocking, DASH diet, and leg elevation. Discontinued Diltiazem due to possible side effects. -possible venous ablation -06/02/23 venous study showed b/l venous insufficiency. -recommended to discuss with his manager of school and vascular specialist at [facility] for other treatment options, if appropriate Assessment & Plan (05/11/2023 8:29 AM EDT): -[facility] in Apr 2021. Recommended to continue conservative management of compression stocking, DASH diet, and leg elevation. Discontinued Diltiazem due to possible side effects. -possible venous ablation -schedule venous study Assessment & Plan (2022 9:36 AM EST): -[facility] in Apr 2021. 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, [...] to pt's questionable adherence - comanaged with manager of school, dairy manufacturing technologist, and pharmacist - check primary aldosteronism; may [...] to pt's questionable adherence - comanaged with manager of school, dairy manufacturing technologist, and pharmacist - check primary aldosteronism; may [...] to pt's questionable adherence - comanaged with manager of school, dairy manufacturing technologist, and pharmacist - check primary aldosteronism; may [...] to pt's questionable adherence - comanaged with manager of school, telegraph and teletype operator, and pharmacist -?24-hr ambulatory BP monitor result [...] 2024, treated with azithromycin. - Restarted seeing [facility] Pulmonology providers. Seen by Dr. Castillo on [...] 2024, treated with azithromycin. - Restarted seeing [facility] Pulmonology providers. Seen by Dr. Castillo on [...] received prednisone and azithromycin. - Restarted seeing [facility] Pulmonology providers. Seen by Dr. Castillo on [...] received prednisone and azithromycin. - Restarted seeing [facility] Pulmonology providers. Seen by Dr. Castillo on [...] received prednisone and azithromycin. - Restarted seeing [facility] Pulmonology providers. Last seen by Dr. Castillo [...] PLAN FOR COPD (CHRONIC OBSTRUCTIVE PULMONARY DISEASE) ([facility]) WRITTEN ON 08/13/2023 4:56 AM BY BRIDGETTE FAGAN MD Last exacerbation due to CAP in Aug 2017 Following with [facility] pulmonology, Dr. Cruz Continue Advair as maintenance. [...] PLAN FOR COPD (CHRONIC OBSTRUCTIVE PULMONARY DISEASE) ([facility]) WRITTEN ON 05/11/2023 8:27 AM BY BRIDGETTE FAGAN MD Last exacerbation due to CAP in Aug 2017 Following with [facility] pulmonology, Dr. Cruz Continue Advair as maintenance. [...] to CAP in Aug 2017 Following with [facility] pulmonology, Dr. Cruz Continue Advair as maintenance. [...] -Restarted auto-PAP in 2019 -Currently followed by [facility] sleep clinic, last appointment in May 2023, auto-PAP 8-20 cm H2O -Continue current setting -Work on lifestyle modifications Assessment & Plan (08/04/2024 10:59 PM EST): -Last sleep study on 07/22/2018. Dx SHANON -Restarted auto-PAP in 2019 -Currently followed by [facility] sleep clinic, last appointment in May 2023, auto-PAP 8-20 cm H2O -Continue current setting -Work on lifestyle modifications Assessment & Plan (04/07/2024 11:48 AM EDT): -Last sleep study on 07/22/2018. Dx SHANON -Restarted auto-PAP in 2019 -Currently followed by [facility] sleep clinic, last appointment in May 2023, auto-PAP 8-20 cm H2O -Continue current setting -Work on lifestyle modifications Assessment & Plan (08/13/2023 4:54 AM EST): -Last sleep study on 07/22/2018. Dx SHANON -Restarted auto-PAP in 2019 -Currently followed by [facility] sleep clinic, last appointment in May 2023, auto-PAP 8-20 cm H2O -Continue current setting -Work on lifestyle modifications Assessment & Plan (05/11/2023 8:26 AM EDT): -Last sleep study on 07/22/2018. Dx SHANON -Restarted auto-PAP in 2019 -Currently followed by [facility] sleep clinic, last appt in 12/31/21, auto-PAP 8-20 cm H2O -Pt received new CPAP machine and now scheduled for Mask Fitting d/t pain on his head. -Continue current setting -Work on lifestyle modifications -Will request [facility] sleep medicine clinic to follow up and provide recommendation. Assessment & Plan (01/21/2023 10:57 AM EDT): -Last sleep study on 07/22/2018. Dx SHANON -Restarted auto-PAP in 2019 -Currently followed by [facility] sleep clinic, last appt in 11/13/22 , New CPAP was prescribed. APAP 8-20 cmH2O. -Continue current setting -Work on lifestyle modifications Assessment & Plan (2022 2:08 PM EST): -Last sleep study on 07/22/2018. Dx SHANON -Restarted auto-PAP in 2019 -Currently followed by [facility] sleep clinic, last appt in 12/31/21, auto-PAP 8-20 cm H2O -Pt received new CPAP machine and now scheduled for Mask Fitting d/t pain on his head. -Continue current setting -Work on lifestyle modifications -Will request [facility] sleep medicine clinic to follow up and provide recommendation. Assessment & Plan (09/24/2022 10:57 AM EST): -Last sleep study on 07/22/2018. Dx SHANON -Restarted auto-PAP in 2019 -Currently followed by [facility] sleep clinic, last appt in 12/31/21, auto-PAP [...] check with Lung Cancer screening program in [facility] for next CT scan schedule -Continue working [...] (08/25/2024 2:37 PM EST): - following with [facility] Urology - continue doxazosin and finasteride Assessment & Plan (08/11/2024 6:20 AM EST): - following with [facility] Urology - continue doxazosin and finasteride Assessment [...] Encounters Date Type Department Care Team Description 10/17/2024 1:00 PM EST Office Visit [facility] ADULT DENTAL [address] [place] [address] Byron Enriquez 09/17/2024 Orders Only GENERIC EXTERNAL DATA DEPARTMENT Provider, Generic External Data 09/16/2024 Refill [facility] MEDICINE [address] [place] [address] Bridegtte Fagan MD Dyslipidemia 09/14/2024 Orders Only GENERIC EXTERNAL DATA DEPARTMENT Provider, Generic External Data 09/13/2024 Orders Only GENERIC EXTERNAL DATA DEPARTMENT Provider, Generic External Data 09/12/2024 10:15 AM EST Office Visit [facility] ADULT DENTAL [address] [place] [address] Cortez Enriquezio 08/25/[address] [address] Bridgette Fagan MD 08/24/2024 11:30 AM EST Office Visit [facility] ADULT DENTAL [address] [place] [address] Amarjit Foster DDS Caries of cervical margin of tooth (Primary Dx); Odontalgia 08/22/2024 2:30 PM EST Office Visit [address] [address] Bridgette Fagan MD Bladder stones (Primary Dx); Preop examination; Benign prostatic hyperplasia with lower urinary tract symptoms, symptom details unspecified; Controlled type 2 diabetes mellitus without complication, without long-term current use of insulin ([facility]); Hypertension, unspecified type; Obstructive sleep apnea syndrome; Moderate persistent asthma without complication; Chronic obstructive pulmonary disease, unspecified COPD type ([facility]) 08/22/[address] [address] Floriad Larson [place] 08/22/2024 Travel 08/19/[address] [address] [place] Larson [place] dme recliner 08/19/[address] [address] Bridgette Fagan MD 08/04/2024 11:00 AM EST Office Visit [address] [address] Bridgette Fagan MD Periodic limb movement disorder (PLMD) (Primary Dx); Obstructive sleep apnea syndrome; Lumbar radiculopathy; Chronic obstructive pulmonary disease, unspecified COPD type (CMS/HCC); Hypertension, unspecified type; Controlled type 2 diabetes mellitus without complication, without long-term current use of insulin (CMS/HCC); Tremor; Benign prostatic hyperplasia with lower urinary tract symptoms, symptom details unspecified; Lower urinary tract symptoms (LUTS); Bladder stones; Memory difficulties; 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 ([facility]) 08/04/2024 Telephone [facility] MED[facility] [address] [place] [address] Bridgette Fagan MD Pre-op Exam 08/04/2024 Travel 08/01/2024 9:30 AM EST Office Visit [facility] ADULT DENTAL [address] [place], [place] [phone] Amarjit Foster DDS Fractured dental zoroastrian with loss of material (Primary Dx) 07/25/2024 Telephone [facility] MEDICINE [address] [place], [place] [phone] Bridgette Fagan MD chart prep from Last 3 Months Immunizations Name Administration [...] 11/01/2024 10:30 AM EDT Office Visit [facility] MEDICINE [address] [place] [address] Bridgette Fagan MD [address] [place], [place] [phone] 01/06/2025 10:00 AM EDT Office Visit [facility] ADULT DENTAL [address] [place], [place] [phone] Bubba, Lydia [address] [place], [place] [phone] Health Maintenance Due Date Last Done Comments Hepatitis C Screening 10/16/1963 Zoster Vaccines (2 of 3) 06/22/2017 04/27/2017 RSV Patients and Patients Aged 60 years or older (1 - 1-dose 75+ series) 2020 DTaP/Tdap/Td Vaccines (2 - Td or Tdap) 09/14/2023 09/14/2013, 01/23/1997, 01/23/1997 COVID-19 Vaccine ( season) 2024 Influenza Vaccine (#1) 2024 0, 05/02/2020, 06/13/2019, Additional history exists Diabetes: Hemoglobin A1C 11/02/202408/04/2 024, 04/07/2024, 01/04/2024, Additional history exists SDOH [...] 08/04/2025 08/04/2024, 08/13/2023, 08/13/2023, Additional history exists Dental X-Ray: Bitewings 09/13/2025 09/12/19 25, 07/08/2024, 06/24/2023 Tobacco Screening 10/17/2025 10/17/2024 Eye Exam 06/29/2026 06/29/2024 Pneumococcal Vaccine: 50+ [...] Procedure Name Priority Date/Time Associated Diagnosis Comments CASE PRESENTATION, DETAILED AND EXTENSIVE TREATMENT PLANNING Routine 10/17/2024 1:00 PM EST 32 LIMITED ORAL EVALUATION - PROBLEM FOCUSED Routine 10/17/2024 1:00 PM EST URINALYSIS, COMPLETE, WITH REFLEX TO CULTURE Routine 09/17/2024 10:55 AM EST CULTURE, URINE, ROUTINE Routine 09/17/2024 12:00 AM EST GLUCOSE, WHOLE BLOOD Routine 09/14/2024 [...] WHOLE BLOOD Routine 09/13/2024 7:50 AM EST CASE PRESENTATION, DETAILED AND EXTENSIVE TREATMENT PLANNING Routine 09/12/2024 10:15 AM EST ORAL HYGIENE INSTRUCTIONS Routine 09/12/2024 10:15 AM EST INTRAORAL - PERIAPICAL FIRST RADIOGRAPHIC IMAGE Routine 09/12/2024 10:15 AM EST BITEWING - SINGLE RADIOGRAPHIC IMAGE Routine 09/12/2024 10:15 AM EST CONSULTATION - DIAGNOSTIC SERVICE PROVIDED BY DENTIST OR PHYSICIAN OTHER THAN REQUESTING DENTIST OR PHYSICIAN Routine 09/12/2024 10:15 AM EST PALLIATIVE (EMERGENCY) TREATMENT OF DENTAL PAIN - MINOR PROCEDURE Routine 08/24/2024 11:30 AM EST INTRAORAL - PERIAPICAL FIRST RADIOGRAPHIC IMAGE Routine 08/24/2024 11:30 AM EST CASE PRESENTATION, DETAILED AND EXTENSIVE TREATMENT PLANNING Routine 08/24/2024 11:30 AM EST POCT GLYCOSYLATED HEMOGLOBIN (HGB A1C) Routine 08/04/2024 11:32 AM EST Controlled type 2 diabetes mellitus without complication, without long-term current use of insulin ([facility]) POCT GLUCOSE Routine 08/04/2024 11:31 AM EST Controlled type 2 diabetes mellitus without complication, without long-term current use of insulin ([facility]) CASE PRESENTATION, DETAILED AND EXTENSIVE TREATMENT PLANNING Routine 08/01/2024 9:30 AM EST 12 B(V) RESIN-BASED COMPOSITE - 1 SURF, POSTERIOR Routine 08/01/2024 9:30 AM EST PROPHYLAXIS - ADULT Routine 07/08/2024 9 :00 AM EST Dental plaque Staining (discoloration) of teeth PERIODIC ORAL EVALUATION - ESTABLISHED PATIENT Routine 07/08/2024 9:00 AM EST HM DIABETES EYE EXAM Routine 06/29/2024 LDCT LUNG SCREENING Routine 12/22/2023 9 :58 AM EDT LIPID PANEL WITH REFLEX TO DIRECT LDL Routine 11/18/2023 8:40 AM EDT Hypertension, unspecified type Dyslipidemia ALBUMIN, RANDOM URINE W/CREATININE Routine 11/18/2023 8:35 AM EDT Controlled type 2 diabetes mellitus without complication, without long-term current use of insulin ([facility]) from Last 3 Months or Most Recently Relevant to Health Maintenance Results * (ABNORMAL) Urinalysis, Complete, with Reflex to Culture (09/17/2024 10:55 AM EST) Color Urine Yellow [facility] Appearance Urine Clear [facility] PH 5.5 5.0 - 9.0 [facility] Glucose Urine UA Negative Negative mg/dL [facility] Urine Blood Large (3+)(A) Negative [facility] Specific Star - Urine 1.010 1.005 - 1.025 [facility] Urine Protein 100 (2+)(A) Neg-Trace mg/dL [facility] Urine Ketones Negative Negative mg/dL [facility] Nitrite Urine Negative Negative [facility] Leukocyte Esterase Urine Moderate (2+)(A) Negative [facility] RBC Urine >20(A) 0 - 2 /HPF [facility] Urine WBC 11-20(A) 0 - 5 /HPF [facility] Urine Squamous Epithelial Cell 0-2 0 - 2 /HPF [facility] Urine Bacteria None Seen None Seen [facility] Hyaline Casts, Urine 3-5 0 - 2 /LPF [facility] 09/17/2024 10:5 5 AM EST 09/17/2024 11:02 AM EST Narrative [facility] - 09/17/2024 11:17 AM EST Urine, [place] us Generic External Data Provider LAB URINE ORDERAB LES Final Result Performing Organization Address [facility] [address] [facility]/ZIP Co de Phone Number [facility] [address] [place] [phone] * Culture, Urine, Routine (09/17/2024 12:00 AM EST) Urine Urine specimen from urinary conduit / Unknown 09/17/2024 09/17/2024 Comment:Urine Cath Narrative [facility] - 09/18/2024 8:37 AM EST Urine Culture No growth. Specimen Source: Urine Catheterized Generic External Data Provider LAB MICROBIOLOGY - GENERAL ORDERABLES Final Result Performing Organization Address [facility] [address]/[facility] Co de Phone Number [facility] [address] [place] [phone] * (ABNORMAL) Glucose, Whole Blood (09/14/2024 7:33 AM EST) Only the most recent of5 resultswithin the time period is included. Glucose, Whole Blood 116(H) 60 - 115 mg/dL [facility] Comment:METER #: [id number] 09/14/2024 7:33 AM EST 09/14/2024 7:37 AM EST us Generic External Data Provider LAB BLOOD ORDERAB LES Final Result Performing Organization Address [facility] [address]/ZIP Co de Phone Number [facility] [address] [place] [phone] * (ABNORMAL) CBC (09/14/2024 5:25 AM EST) Pathologist [facility] White Blood Count 10.8 4.8 - 10.8 X10*3/uL [facility] Red Blood Count 4.16(L) 4.60 - 5.80 X10*6/uL [facility] Hemoglobin 12.8(L) 14.0 - 18.0 g/dl [facility] Hematocrit 38.3(L) 42.0 - 52.0 % [facility] Mean Corpuscular Volume 92.1 80.0 - 98.0 fL [facility] Mean Corpuscular Hemoglobin 30.8 27.0 - 33.0 pg [facility] Mean Corpuscular HGB Conc 33.4 31.0 - 36.0 g/dl [facility] Red Cell Distribution Width 13.1 11.0 - 16.0 % [facility] Platelet Count 141(L) 160 - 400 X10*3/uL [facility] Mean Platelet Volume 12.3 9.4 - 12.4 fL [facility] NRBC Pct Auto 0.0 0.0 - 0.2 /100WBC [facility] NRBC Abs Auto 0.000 0.0 - 0.012 X10*3/uL [facility] 09/14/2024 5:25 AM EST 09/14/2024 5:48 AM EST us Generic External Data Provider LAB BLOOD ORDERAB LES Final Result [facility] [address] [place] [phone] * (ABNORMAL) Basic Metabolic Panel (09/14/2024 5:25 AM EST) [facility] Sodium 140 135 - 145 mmol/L [facility] Potassium 3.5 3.3 - 5.1 mmol/L [facility] Chloride 106 96 - 108 mmol/L [facility] Carbon Dioxide 27 22 - 29 mmol/L [facility] Anion Gap 11(L) 12 - 20 [facility] Urea Nitrogen (BUN) 16 9 - 16 mg/dL [facility] Creatinine, Serum 0.82 0.5 - 1.4 mg/dL [facility] Creatinine Clr Calc Pharmacy 85.9 [facility] Comment:eGFR (calculated fro m the MDRD study equation) and eCrCl(calculated from the Cockcroft-Gault equation) are based ondifferent parameters and may not yield comparable results.If eCrCl result is absurd, please check patient'sheight/weight. Estimated Glomerular Filt Rate >60 [facility] Comment:Chronic Kidney Disea se: Estimated GFR < 60 mL/min/1.70t3Vkwphm Kidney Disease: Estimated GFR < 15 mL/min/1.73m2 Glucose 108 60 - 115 mg/dL [facility] Calcium 8.6 8.4 - 10.2 mg/dL [facility] 09/14/2024 5:25 AM EST 09/14/2024 5:48 AM EST us Generic External Data Provider LAB BLOOD ORDERAB LES Final Result [facility] [address] [place] [phone] * Gross and Microscopic Level 4 (09/13/2024 11:10 AM EST) 09/13/2024 11:1 0 AM EST 09/13/2024 12:20 PM EST Narrative [facility] - 09/15/2024 3:21 PM EST ----- ------- Name: Piter Angel,Bharathi ? Age/Sex: 78/M ? : 1945 Unit#: [id number] ?? Attend Dr: Kishore Ayala MD ?Re09/13/24 ?Status: DEP SDC ? Location: HO.SSS ?Disch: ? ----- ------- SPEC : [id number] ?RECD: 09/13/24-0 ? STATUS: ??SOUT ? REQ NUM: [id number] ? ALDO: 09/13/24-1110 ? SUBM DR: Kishore [...] Copies To: ?? Kishore Ayala MD ?? [facility] ?? [address] [place] [address] [address] ?? [place] [address] ?? [phone] ? Bridgette Fagan MD ?? [facility] ?? [address] [facility] ?? [place] [address] ?? [phone] ? CONTINUED ON NEXT PAGE ----- ------- Name: Bharathi Walsh ? Age/Sex: 78/M ? : 1945 Unit#: [id number] ?? Attend Dr: Kishore Ayala MD ?Re09/13/24 ?Status: DEP SDC ? Location: HO.SSS ?Disch: ? ----- ------- SPEC : [id number] ?RECD: 09/13/24-1220 ? STATUS: ??SOUT ? REQ NUM: [id number] ? ALDO: 09/13/24-1110 ? SUBM DR: Kishore Ayala MD ? ENTERED: ??09/13/24-1219 ?SP TYPE: Surgical ? OTHR DR: Bridgette Fagan MD ? ORDERED: ??Gross Micro L4 ? ----- ------- Signed (signature on file) Jesse Stuart MD 09/15/24 1521 ? ----- ------- ? END OF REPORT ? Generic External Data Provider LAB CYTOLOGY SHARATHE RABLES Final Result [facility] [address] [place], [place] [phone] * (ABNORMAL) POCT glycosylated hemoglobin (Hgb A1c) (08/04/2024 11:32 AM EST) [facility] Hemoglobin A1C 7.0(A) 4.0 - 6.0 % QC Media Lot # [id number] Lot# Expiration Date ,026 Blood Capillary blood specimen / Unknown 08/04/2024 11:32 AM EST Bridgette Fagan MD POINT OF CARE TEST ENTER/EDIT OR DERABLES Final Result * POCT glucose manually resulted (08/04/2024 11:31 AM EST) Pathologist [facility] Glucose Blood, POC 115 60 - 200 mg/dL QC Media Lot # [id number] Lot# Expiration Date [id number] Blood Capillary blood specimen / Unknown 08/04/2024 11:31 AM EST Bridgette Fagan MD POINT OF CARE TEST ENTER/EDIT OR DERABLES Final Result * Hm Diabetes Eye Exam (06/29/2024) Eye Exam Normal Normal 06/29/2024 us Historical Provider HEALTH MAINTENANCE Final Result * CT Lung Screening Low dose (12/22/2023 9:58 AM EDT) Anatomical Region Laterality Modality Lung Computed Tomogra phy 12/22/2023 9:58 AM EDT Narrative 12/27/2023 11:40 PM EDT ? [facility] ?[address] ?[place] [address] ? CT Scan Report ? Signed ? Patient: Piter Angel,Bharathi ?M ?? R#: [id number] ? : 1945 ?Acct:[id number] ? Age/Sex: 78 / M ?ADM Date: 12/22/23 ? Loc: HO.CT ? Attending Dr: Tc Castillo MD ? Ordering Physician: Tc Castillo MD ?? Date of Service: 12/22/23 ?? Procedure(s): CT lung screening ?? Accession Number(s): [id number] ? cc: Tc Castillo MD; Bridgette Fagan [...] for CT CHEST LOW DOSE CANCER SCREENING ([id number]) ?? can be placed. ? Dictated By: ?Kun Enciso MD ? Signed By: ?<Electronically signed by Kun Enciso MD in OV> ? 12/27/23 2336 ? DD/ 7 ? TD/TT: ? Store Standards Associate: SS ? Procedure Note Brooks, Image - 12/27/[address] [address] [address] Scan Report Signed Patient: Shalom Walsh R#: [id number] : 6Acct:[id number] Age/Sex: 78 / MADM Date: 12/22/23 Loc: .CT Attending Dr: Tc Castillo MD Ordering Physician: Tc Castillo MD Date of Service: 12/22/23 Procedure(s): CT lung screening Accession Number(s): [id number] cc: Tc Castillo MD; Bridgette aFgan MD EXAMINATION: CT LUNG SCREENING CLINICAL INFORMATION: [...] for CT CHEST LOW DOSE CANCER SCREENING ([id number]) can be placed. Dictated By: Kun Enciso MD Signed By: <Electronically signed by Kun Enciso MD in OV> 12/27/23 2336 DD/ 0958 TD/TT: Store Standards Associate: SS [facility] External Provider IMG CT PROCEDURES Edited Result - Final * Lipid Panel with Reflex to Direct LDL (11/18/2023 8:40 AM EDT) Triglycerides 96 <150 mg/dL [facility] Comment:Desirable Triglyceri de: less than 150 mg/dLBorderline High Triglyceride 150-199 mg/dLHigh Triglyceride: 200-499 mg/dLVery High Triglyceride: greater than or equal to 5OO mg/dL Cholesterol 136 <200 mg/dL [facility] Comment:Desirable Cholestero l: less than 200 mg/dLBorderline High Cholesterol: 200-239 mg/dLHigh Cholesterol: greater than 239 mg/dL LDL Cholesterol Calculated 75 <100 mg/dL [facility] Comment:Desirable LDL: less than 100 mg/dLNear Optimal/Above Optimal LDL: 110- 129 mg/dLBorderline High LDL: 130-159 mg/dLHigh LDL: 160-189 mg/dLVery High LDL: greater than or equal to 190 mg/dL HDL Cholesterol 42 >40 mg/dL [facility] Comment:Desirable HDL: great er than 40 mg/dL Note: This HDL assay may give artificially low results in patients with liver disease. Blood 11/18/2023 8:40 AM EDT 11/18/2023 11:14 AM EDT us Bridgette Fagan MD LAB BLOOD ORDERABLES Final Resul t Performing Organization Address [facility] Co de Phone Number [facility] [address] [place] [phone] * Albumin, Random Urine W/Creatinine (11/18/2023 8:35 AM EDT) Creatinine, Urine 119.50 mg/dL [facility] Microalbumin Urine 12.0 mg/L [facility] Microalbum Creatinine Ratio Ur 10.0 <30 ug/mg cr [facility] Comment:Albumin/Creatinine R atio Reference Ranges: Normal: < 30 ug/mg creatinine Microalbuminuria: 30 - 300 ug/mg creatinineClinical Albuminuria: > 300 ug/mg creatinine Urine 11/18/2023 8:35 AM EDT 11/18/2023 11:38 AM EDT us Bridgette Fagan MD LAB URINE ORDERABLES Final Resul t Performing Organization Address [facility] [address] [facility] Co de Phone Number [facility] [address] [place] [phone] from Last 3 Months or Most Recently Relevant to Health Maintenance Insurance * Guarantor: Bharathi Walsh Account Type Relation to Patient Date of Phone Billing Address Personal/Family Self 1945 [address] [facility] [address] [place] [address] [facility] [place] [address] DENTAL - [facility] * Guarantor: Bharathi Walsh Account Type Relation to Patient Date of Phone Billing Address Personal/Family Self [address] [place] [address] * Guarantor: Bharathi Walsh Account Type Relation to Patient Date of Phone Billing Address Personal/Family Self [address] [place] [address] * Guarantor: Bharathi Walsh Account Type Relation to Patient Date of Phone Billing Address Personal/Family Self [address] [place] [address] Care Teams Lime Spreader Relationship Specialty Start Date End Date Bridgette Fagan MD [address] [facility] [place] [address] PCP - General Family Medicine 07/01/12 Ramón Bolaños, MollyD 230 [place] [address] Pharmacist Internal Medicine 11/18/23
--- OUTSIDE RECORDS SUMMARY | 2024-10-19 09:00 | XMS_ITS | Encounter Summary ---
Author Organization [employer] Address [address] [facility] 7t [place] [address] Care Team Providers Care Med Aide Name Role Phone Bridgette Gandhi MD Primary Care Provider [phone] Ramón Bolaños PharmD Unavailable [phone] Encounter Details Date Type Department Care Team (Late st Contact Info) Description 09/22/2023 Orders Only [facility] 230 [place], [place] [phone] Bridgette Gandhi MD 230 [place], [place] [phone] Chronic obstructive pulmonary disease, unspecified COPD type [...] Description 11/01/2024 10:30 AM EDT Office Visit [facility] [address] [place] [address] Bridgette Gandhi MD [address] [place] [address] 01/06/2025 10:00 AM EDT Office Visit [facility] ADULT [facility] 230 [place] [address] Bubba Lydia 230 [place] [address] documented as of this encounter Visit Diagnoses Diagnosis Chronic obstructive pulmonary disease, unspecified COPD type ([facility])- Primary Obstructive sleep apnea syndrome Obstructive sleep apnea (adult) (pediatric) documented in this encounter Additional Health Concerns Assessment Noted Time PHQ-9 Depression Total Score: 5 09/11/19 23 10:25 AM EST documented as of this encounter Care Teams Med Aide Relationship Specialty Start Date End Date Bridgette Gandhi MD [address] [place] [address] PCP - General Family Medicine 07/01/12 Ramón Bolaños, MollyD [address] [place] [address] Pharmacist Internal Medicine 11/18/23 documented as of this encounter
--- OUTSIDE RECORDS SUMMARY | 2024-10-19 09:00 | XMS_ITS | Encounter Summary ---
Author Organization [employer] Address [address] [facility] 7t [place] [address] Care Team Providers Care Contour Stitcher Name Role Phone Bridgette Gandhi MD Primary Care Provider [phone] Ramón Bolaños PharmD Unavailable [phone] Encounter Details Date Type Department Care Team (Late st Contact Info) Description 08/28/2023 Orders Only [facility] 230 [place], [place] [phone] Bridgette Gandhi MD 230 [place], [place] [phone] Social History Tobacco Use Types Packs/Day Years [...] 11/01/2024 10:30 AM EDT Office Visit [facility] 230 [place] [address] Bridgette Gandhi MD [address] [place] [address] 01/06/2025 10:00 AM EDT Office Visit [facility] ADULT DENTAL 230 [place] [address] Lydia Mac 230 [place] [address] documented as of this encounter Visit Diagnoses Not on filedocumented in this encounter Additional Health Concerns Assessment Noted Time PHQ-9 Depression Total Score: 5 09/11/19 23 10:25 AM EST documented as of this encounter Care Teams Contour Stitcher Relationship Specialty Start Date End Date Bridgette Gandhi MD [address] [place] [address] PCP - General Family Medicine 07/01/12 Ramón Bolaños, MollyD [address] [place] [address] Pharmacist Internal Medicine 11/18/23 documented as of this encounter
--- OUTSIDE RECORDS SUMMARY | 2024-10-19 09:00 | XMS_ITS | Encounter Summary ---
Author Organization [employer] Address [address] [facility] 7t [place] [address] Care Team Providers Care Carbide Tool Maker Name Role Phone Bridgette Gandhi MD Primary Care Provider [phone] Ramón Bolaños PharmD Unavailable [phone] Encounter Details Date Type Department Care Team (Late st Contact Info) Description 09/04/2023 Orders Only [facility] 230 [place], [place] [phone] Bridgette Gandhi MD 230 [place], [place] [phone] Chronic pain of both knees (Primary Dx) [...] Description 11/01/2024 10:30 AM EDT Office Visit [facility] 230 [place] [address] Bridgette Gandhi MD 230 [place] [address] 01/06/2025 10:00 AM EDT Office Visit [facility] ADULT DENTAL 230 [place] [address] Bubba, Lydia 230 [place] [address] documented as of this encounter Visit Diagnoses Diagnosis Chronic pain of both knees- Primary documented in this encounter Additional Health Concerns Assessment Noted Time PHQ-9 Depression Total Score: 5 09/11/19 23 10:25 AM EST documented as of this encounter Care Teams Carbide Tool Maker Relationship Specialty Start Date End Date Bridgette Gandhi MD [address] [place] [address] PCP - General Family Medicine 07/01/12 Ramón Bolaños, MollyD [address] [place] [address] Pharmacist Internal Medicine 11/18/23 documented as of this encounter
--- OUTSIDE RECORDS SUMMARY | 2024-10-19 09:00 | XMS_ITS | Encounter Summary ---
Author Organization [employer] [facility] Address [address] [place] [address] 7t [place] [address] Care Team Providers Care Reptile Farmer Name Role Phone Bridgette Gandhi MD Primary Care Provider [phone] Ramón Bolaños PharmD Unavailable [phone] Encounter Details Date Type Department Care Team (Late st Contact Info) Description 07/31/2022 Abstract [facility] ADULT DENTAL 230 [place], [place] [phone] Lydia Mac 230 [place] [address] Social History Tobacco Use Types Packs/Day Years [...] Description 11/01/2024 10:30 AM EDT Office Visit [facility] MED[facility] 230 [place], [place] [phone] Bridgette Gandhi MD 230 [place], [place] [phone] 01/06/2025 10:00 AM EDT Office Visit [facility] ADULT DENTAL 230 [place], [place] [phone] Lydia Mac 230 [place] [address] documented as of this encounter Visit Diagnoses Not on filedocumented in this encounter Care Teams Reptile Farmer Relationship Specialty Start Date End Date Bridgette Gandhi MD 230 [place] [address] PCP - General Family Medicine 07/01/12 Ramón Bolaños, Bradley 230 [place] [address] Pharmacist Internal Medicine 11/18/23 documented as of this encounter
--- OUTSIDE RECORDS SUMMARY | 2024-10-19 09:00 | XMS_ITS | Encounter Summary ---
Author Organization [employer] Address [address] [facility] 7t [place] [address] Care Team Providers Care Inventory Specialist Name Role Phone Bridgette Gandhi MD Primary Care Provider [phone] Ramón Bolaños PharmD Unavailable [phone] Encounter Details Date Type Department Care Team (Late st Contact Info) Description 06/24/2024 Orders Only [facility] 230 [place], [place] [phone] Bridgette Gandhi MD 230 [place], [place] [phone] Social History Tobacco Use Types Packs/Day Years [...] Description 11/01/2024 10:30 AM EDT Office Visit [facility] 230 [place] [address] Bridgette Gandhi MD 230 [place] [address] 01/06/2025 10:00 AM EDT Office Visit [facility] ADULT DENTAL 230 [place] [address] Lydia Mac 230 [place] [address] documented as of this encounter Goals Goal [...] documented as of this encounter Care Teams Inventory Specialist Relationship Specialty Start Date End Date Bridgette Gandhi MD 230 [place] [address] PCP - General Family Medicine 07/01/12 Ramón Bolaños, MollyD 230 [place] [address] Pharmacist Internal Medicine 11/18/23 documented as of this encounter
--- OUTSIDE RECORDS SUMMARY | 2024-10-19 09:00 | XMS_ITS | Encounter Summary ---
Author Organization [employer] [facility] Address [address] [place] [address] 7t [place] [address] Care Team Providers Care Senior Ux Designer Name Role Phone Bridgette Gandhi MD Primary Care Provider [phone] Ramón Bolaños PharmD Unavailable [phone] Encounter Details Date Type Department Care Team (Late st Contact Info) Description 07/30/2022 Abstract [facility] ADULT DENTAL 230 [place], [place] [phone] Lydia Mac 230 [place] [address] Social History Tobacco Use Types Packs/Day Years [...] 10:30 AM EDT Office Visit [facility] MEDICINE 230 [place], [place] [phone] Bridgette Gandhi MD 230 [place], [place] [phone] 01/06/2025 10:00 AM EDT Office Visit [facility] ADULT DENTAL 230 [place], [place] [phone] Lydia Mac 230 [place] [address] documented as of this encounter Procedures Procedure [...] on filedocumented in this encounter Care Teams Senior Ux Designer Relationship Specialty Start Date End Date Bridgette Gandhi MD 230 [place] [address] PCP - General Family Medicine 07/01/12 Ramón Bolaños PharmD 230 [place] [address] Pharmacist Internal Medicine 11/18/23 documented as of this encounter
--- OUTSIDE RECORDS SUMMARY | 2024-10-19 09:00 | XMS_ITS | Clinical Summary ---
Demographics Address [address] [facility] [address] [place] [address] Mobile Phone Home Phone Mobile Phone Preferred Language es Marital Status Unknown Denominational Affiliation Unknown Race Unknown Ethnic Group Unknown Author Organization [facility] [address] [place] [address] Phone Care Team Providers Care Webbing Inspector Name Role Phone Bridgette Gandhi MD Primary Care Provider [phone] Allergies Active Allergy Reactions Criticality Noted Date [...] Visit [facility] [address] [place] [address] Gómez Colunga MD Hypertension [...] Visit [facility] [address] [place] [address] Gómez Colunga MD [address] [facility] [address] [place] [phone] Health Maintenance Due Date Last Done Comments [...] patient's age to complete this topic Insurance [facility] ([id number]) [facility] ([id number]) Care Teams Webbing Inspector Relationship Specialty Start Date End Date Bridgette Gandhi MD [address] [place] [address] PCP - General 08/27/20
--- OUTSIDE RECORDS SUMMARY | 2024-10-19 09:00 | XMS_ITS | Encounter Summary ---
Author Organization [employer] [facility] Address [address] [facility] 7t [place] [address] Care Team Providers Care Bait Maker Name Role Phone Bridgette Gandhi MD Primary Care Provider [phone] Ramón Bolaños PharmD Unavailable [phone] Encounter Details Date Type Department Care Team (Latest Contact Info) Description 06/20/2022 Abstract [facility] CONVERSIONS Dental, Provider, DDS Social History [...] Description 11/01/2024 10:30 AM EDT Office Visit [facility] MED[facility] 230 [place] [address] Bridgette Gandhi MD 230 [place] [address] 01/06/2025 10:00 AM EDT Office Visit [facility] ADULT DENTAL 230 [place] [address] Lydia Mac [address] [place] [address] documented as of this encounter Visit Diagnoses Not on filedocumented in this encounter Care Teams Bait Maker Relationship Specialty Start Date End Date Bridgette Gandhi MD 230 [place], [place] [phone] PCP - General Family Medicine 07/01/12 Ramón Bolaños, MollyD 230 [place] [address] Pharmacist Internal Medicine 11/18/23 documented as of this encounter
--- OUTSIDE RECORDS SUMMARY | 2024-10-19 09:00 | XMS_ITS | Encounter Summary ---
Author Organization [facility] [facility] Address [address] [facility] 7t [place] [address] Care Team Providers Care Server Assistant Name Role Phone Bridgette Gandhi MD Primary Care Provider [phone] Ramón Bolaños PharmD Unavailable [phone] Encounter Details Date Type Department Care Team (Late st Contact Info) Description 10/09/2022 Orders Only [facility] 230 [place] [address] Bridgette Gandhi MD 230 [place] [address] Spinal stenosis of lumbar region with neurogenic [...] 11/01/2024 10:30 AM EDT Office Visit [facility] 230 [place] [address] Bridgette Gandhi MD 230 [place] [address] 01/06/2025 10:00 AM EDT Office Visit [facility] ADULT DENTAL 230 [place], [place] [phone] Greg Macaris 230 [place] [address] documented as of this encounter Visit Diagnoses Diagnosis Spinal stenosis of lumbar region with neurogenic claudication- Primary documented in this encounter Additional Health Concerns Assessment Noted Time PHQ-9 Depression Total Score: 5 09/11/19 23 10:25 AM EST documented as of this encounter Care Teams Server Assistant Relationship Specialty Start Date End Date Bridget[place] [address] PCP - General Family Medicine 07/01/12 Ramón Bolaños, PharmD [address] [place] [address] [phone] Pharmacist Internal Medicine 11/18/23 documented as of this encounter
--- OUTSIDE RECORDS SUMMARY | 2024-10-19 09:00 | XMS_ITS | Encounter Summary ---
Author Organization [employer] Address [address] [facility] 7t [place] [address] Care Team Providers Care Lace Pinner Name Role Phone Bridgette Gandhi MD Primary Care Provider [phone] Ramón Bolaños PharmD Unavailable [phone] Reason for Visit * Reason Onset Date Comments Medication Question 06/24/2024 Encounter Details Date Type Department Care Team (Late st Contact Info) Description 06/24/[address] [facility] MEDICINE 230 [place], [place] [phone] Bridgette Gandhi MD 230 [place], [place] [phone] Medication Question Social History Tobacco Use Types [...] broke. If any questions contact pt at [phone] documented in this encounter Plan of Treatment Upcoming Encounters Date Type Department Care Team (Late st Contact Info) Description 11/01/2024 10:30 AM EDT Office Visit [facility] MEDICINE 230 [place] [address] Bridgette Gandhi MD 230 [place] [address] 01/06/2025 10:00 AM EDT Office Visit [facility] ADULT DENTAL 230 [place] [address] Lydia Mac [address] [place] [address] documented as of this encounter Goals Goal [...] documented as of this encounter Care Teams Lace Pinner Relationship Specialty Start Date End Date Bridgette Gandhi MD 230 [place] [address] PCP - General Family Medicine 07/01/12 Ramón Bolaños PharmD [address] [place] [address] Pharmacist Internal Medicine 11/18/23 documented as of this encounter
--- OUTSIDE RECORDS SUMMARY | 2024-10-19 09:00 | XMS_ITS | Encounter Summary ---
Author Organization [employer] [facility] Address [address] [facility] 7t [place] [address] Care Team Providers Care Title Curative Specialist Name Role Phone Bridgette Gandhi MD Primary Care Provider [phone] Ramón Bolaños PharmD Unavailable [phone] Reason for Visit * Reason Comments Med Refill Encounter Details Date Type Department Care Team (Late st Contact Info) Description 10/22/2022 Refill [facility] 230 [place] [address] Tamela Drake MD 230 [place] [address] Dyslipidemia (Primary Dx) Social History Tobacco Use [...] Description 11/01/2024 10:30 AM EDT Office Visit [facility] MEDICINE 230 [place] [address] Bridgette Gandhi MD 230 [place] [address] 01/06/2025 10:00 AM EDT Office Visit [facility] ADULT DENTAL 230 [place], [place] [phone] Greg Macaris 230 [place] [address] documented as of this encounter Visit Diagnoses Diagnosis Dyslipidemia- Primary Other and unspecified hyperlipidemia documented in this encounter Additional Health Concerns Assessment Noted Time PHQ-9 Depression Total Score: 5 09/11/19 23 10:25 AM EST documented as of this encounter Care Teams Title Curative Specialist Relationship Specialty Start Date End Date Bridgette Gandhi MD [address] [place] [address] PCP - General Family Medicine 07/01/12 Ramón Bolaños, MollyD [address] [place] [address] [phone] Pharmacist Internal Medicine 11/18/23 documented as of this encounter
--- OUTSIDE RECORDS SUMMARY | 2024-10-19 09:01 | XMS_ITS | Encounter Summary ---
Author Organization [employer] [facility] Address [address] [facility] 7t [place] [address] Care Team Providers Care Back Tufter Name Role Phone Bridgette Gandhi MD Primary Care Provider [phone] Ramón Bolaños PharmD Unavailable [phone] Reason for Referral * Consultation (Routine) - Closed Specialty Diagnoses / Procedures Referred By Jj bro Referred To Contact Orthopaedic Surgery Diagnoses Primary osteoarthritis of both hips Primary osteoarthritis of both knees Bridgette Gandhi MD 230 [place] [address] Phone: tel: fax: [facility] [address] [place] [address] Drive [address] [place], [place] Phone: tel: fax: Referral ID Status Reason Start Date Expiration Date V isits Requested Visits Authorized [id number] Closed Specialty Services Required 02/23/2024 02/22/2025 1 1 Encounter Details Date Type Department Care Team (Late st Contact Info) Description 02/23/2024 Orders Only [facility] MEDICINE [address] [place] [address] [phone] Bridgette Gandhi MD 230 [place], [place] [phone] Primary osteoarthritis of both hips (Primary Dx); [...] Office Visit [facility] MEDICINE [address] [place] [address] Bridgette Gandhi MD [address] [place], [place] [phone] 01/06/2025 10:00 AM EDT Office Visit [facility] ADULT DENTAL [address] [place] [address] Lydia Mca [address] [place] [address] Scheduled Referrals Name Type Priority Associated Diagnoses [...] documented as of this encounter Care Teams Back Tufter Relationship Specialty Start Date End Date Bridgette Gandhi MD [address] [place] [address] PCP - General Family Medicine 07/01/12 Ramón Bolaños PharmD [address] [place] [phone] Pharmacist Internal Medicine 11/18/23 documented as of this encounter
--- OUTSIDE RECORDS SUMMARY | 2024-10-19 09:01 | XMS_ITS | Encounter Summary ---
Author Organization [employer] Address [address] 7[address] [place] [address] Care Team Providers Care Product Tester Name Role Phone Bridgette Gandhi MD Primary Care Provider [phone] Ramón Bolaños PharmD Unavailable [phone] Encounter Details Date Type Department Care Team (Late st Contact Info) Description 08/22/2024 Abstract [facility] [address] [place], [place] [phone] [place] Social History Tobacco Use [...] Description 11/01/2024 10:30 AM EDT Office Visit [facility] [address] [place] [address] Bridgette Gandhi MD [address] [place] [address] 01/06/2025 10:00 AM EDT Office Visit [facility] [address] [place] [address] Bubba, Lydia [address] [place] [address] documented as of this encounter Goals Goal [...] documented as of this encounter Care Teams Product Tester Relationship Specialty Start Date End Date Bridgette Gnadhi MD [address] [place] [address] PCP - General Family Medicine 07/01/12 Ramón Bolaños, Bradley [address] [place] [address] Pharmacist Internal Medicine 11/18/23 documented as of this encounter
--- OUTSIDE RECORDS SUMMARY | 2024-10-19 09:01 | XMS_ITS | Encounter Summary ---
Author Organization [employer] Address [address] [facility] 7t [place] [address] Care Team Providers Care Ice Cream Freezer Helper Name Role Phone Bridgette Gandhi MD Primary Care Provider [phone] Ramón Bolaños PharmD Unavailable [phone] Reason for Visit * Reason Comments Med Refill Encounter Details Date Type Department Care Team (Late st Contact Info) Description 03/10/2024 Refill [facility] [address] [place], [place] [phone] Bridgette Gandhi MD [address] [place], [place] [phone] Social History Tobacco Use Types Packs/Day Years [...] the past 12 months, has t he [employer], gas, oil or water company threatened to [...] 10:30 AM EDT Office Visit [facility] [address] [place] [address] Bridgette Gandhi MD [address] [place] [address] 01/06/2025 10:00 AM EDT Office Visit [facility] [address] [place] [address] Lydia Mac [address] [place] [address] documented as of this encounter Goals Goal [...] documented as of this encounter Care Teams Ice Cream Freezer Helper Relationship Specialty Start Date End Date Bridgette Gandhi MD [address] [place] [address] PCP - General Family Medicine 07/01/12 Ramón Bolaños, Bradley [address] [place] [address] Pharmacist Internal Medicine 11/18/23 documented as of this encounter
--- OUTSIDE RECORDS SUMMARY | 2024-10-19 09:01 | XMS_ITS | Encounter Summary ---
Demographics Address [address] [place] [address] Mobile Phone Home Phone Work Phone Preferred Language es Marital Status Samaritan Affiliation Unknown Race Other Race Ethnic Group or Author Organization [employer] Address [address] [facility] 7t [place] [address] Care Team Providers Care Fitter Mechanic Name Role Phone Bridgette Gandhi MD Primary Care Provider [phone] Ramón Bolaños PharmD Unavailable [phone] Reason for Visit * Reason Comments Consult root canal Encounter Details Date Type Department Care Team (Late st Contact Info) Description 10/17/2024 1:00 PM EST Office Visit [facility] [address] [place], [place] [phone] Zoe Byron [address] [place], [place] [phone] Social History Tobacco Use Types Packs/Day Years [...] the past 12 months, has t he [employer], gas, oil or water company threatened to [...] encounter Progress Notes * Byron Enriquez - 10/17/2024 1:00 PM EST Dental procedures in this visit D0140 - LIMITED ORAL EVALUATION - PROBLEM FOCUSED 32 (Completed) Service provider: Byron Enriquez [place] provider: Max Morrow DMD D9450 - CASE PRESENTATION, DETAILED AND EXTENSIVE TREATMENT PLANNING (Completed) Service provider: Byron Enriquez [place] provider: Max Morrow DMD Patient ID: Bharathi Angel is a 79 y.o. male. Time Out: Date: 10/17/2024 Location: [facility] Tooth: #32 Procedure: Exam Verified the above with patient, career services assistant, and provider. Confirmed via patient's chart, intraorally and by radiographs. High School Director: not applicable 79 y.o. y/o male presents for limited exam with Dr. Byron Enriquez Medical history: Reviewed in EHR Vitals: There were no vitals taken for this visit. Allergies: Reviewed in EHR Medications: Reviewed in EHR Radiographs taken: JASON CHIEF COMPLAINT: Im in pain on my lower right back tooth Discussion: The patient presented for an evaluation of tooth #32. Clinical and radiographic examination revealed a 3-unit bridge spanning teeth #30-32. Tooth #32 exhibited a carious lesion on the mesial coronal portion beneath the PFM crown. Radiographically, a radiolucency consistent with caries was observed on the mesial aspect of the crown, along with vertical bone loss on the mesial of tooth #32. The patient was informed that tooth #32 is non-restorable, and extraction was recommended. Additionally, the bridge will be sectioned distal to tooth #30 to preserve the tooth. The patient understood and agreed to the treatment plan. All questions were addressed. NV: EXT Provider: Dr. Byron Enriquez Dental [employer] [place] Worker: Delicia Gonzales Attending: Dr. Morrow * Max Morrow DMD - 10/17/2024 1:00 PM EST Reviewed. Max Morrow DMD documented in this encounter Plan of Treatment Upcoming Encounters Date Type Department Care Team (Late st Contact Info) Description 11/01/2024 10:30 AM EDT Office Visit [facility] [address] [place] [address] Bridgette Gandhi MD [address] [place] [address] 01/06/2025 10:00 AM EDT Office Visit [facility] [address] [place] [address] Lydia Mac [address] [place] [address] documented as of this encounter Goals Goal Patient Goal Type Associated Problems Recent Progress Patient-Stated? Author Blood Pressure < 140/90 Blood Pressure 130/60(2024 10:46 AM EST) No Ramón Bolaños PharmD Hemoglobin A1c < 7 Result Component 7(08/04/2024 11:32 AM EST) No Ramón Bolaños PharmD documented as of this encounter Procedures Procedure Name Priority Date/Time Associated Diagnosis Comments 32 LIMITED ORAL EVALUATION - PROBLEM FOCUSED Routine 10/17/2024 1:00 PM EST CASE PRESENTATION, DETAILED AND EXTENSIVE TREATMENT PLANNING Routine 10/17/2024 1:00 PM EST documented in this encounter Visit Diagnoses Not on filedocumented in this encounter Additional Health Concerns Assessment Noted Time PHQ-9 Depression Total Score: 0 04/07/20 11:45 AM EDT documented as of this encounter Care Teams Fitter Mechanic Relationship Specialty Start Date End Date Bridgette Gandhi MD [address] [place] [address] PCP - General Family Medicine 07/01/12 Ramón Bolaños, MollyD [address] [place] [address] Pharmacist Internal Medicine 11/18/23 documented as of this encounter
--- OUTSIDE RECORDS SUMMARY | 2024-10-19 09:01 | XMS_ITS | Encounter Summary ---
Author Organization [employer] Address [address] [facility] 7t [place] [address] Care Team Providers Care Generator Operator Name Role Phone Bridgette Gandhi MD Primary Care Provider [phone] Ramón Bolaños PharmD Unavailable [phone] Reason for Visit * Reason Comments Med Refill Encounter Details Date Type Department Care Team (Late st Contact Info) Description 06/07/2023 Refill [facility] [address] [place], [place] [phone] Bridgette Gandhi MD [address] [place], [place] [phone] Social History Tobacco Use Types Packs/Day Years [...] Visit [facility] [address] [place] [address] Bridgette Gandhi MD [address] [place] [address] 01/06/2025 10:00 AM EDT Office Visit [facility] ADULT D[facility] [address] [place] [address] BubbaGregLydia [address] [place] [address] documented as of this encounter Visit Diagnoses Not on filedocumented in this encounter Additional Health Concerns Assessment Noted Time PHQ-9 Depression Total Score: 5 09/11/19 23 10:25 AM EST documented as of this encounter Care Teams Generator Operator Relationship Specialty Start Date End Date Bridgette Gandhi MD [address] [place] [address] PCP - General Family Medicine 07/01/12 Ramón Bolaños, PharmD [address] [place] [address] Pharmacist Internal Medicine 11/18/23 documented as of this encounter
--- OUTSIDE RECORDS SUMMARY | 2024-10-19 09:01 | XMS_ITS | Encounter Summary ---
Author Organization [employer] Address [address] [facility] 7t [place] [address] Care Team Providers Care Rug Underlay Machine Operator Name Role Phone Bridgette Gandhi MD Primary Care Provider [phone] Ramón Bolaños PharmD Unavailable [phone] Reason for Visit * Reason Onset Date Comments Referral 08/27/2023 Encounter Details Date Type Department Care Team (Late st Contact Info) Description 08/27/2023 Telephone [facility] [address] [place], [place] [phone] Bridgette Gandhi MD [address] [place], [place] [phone] Referral Social History Tobacco Use Types Packs/Day [...] 08/27/2023 1:13 PM EST TC from pt's daughter/GARMENT LOOPER requesting a renewal of Referral Date of original referral: 09/11/23 Location: [facility] (unsure of exact location) Date: 09/03/23 Time: 3:15 Fax: N/A Specialty: Orthopedic documented in this encounter Plan of Treatment Upcoming Encounters Date Type Department Care Team (Late st Contact Info) Description 11/01/2024 10:30 AM EDT Office Visit [facility] [address] [place] [address] Bridgette Gandhi MD [address] [place] [address] 01/06/2025 10:00 AM EDT Office Visit [facility] ADULT DENTAL [address] [place] [address] Bubba, Lydia [address] [place] [address] documented as of this encounter Visit Diagnoses Not on filedocumented in this encounter Additional Health Concerns Assessment Noted Time PHQ-9 Depression Total Score: 5 09/11/19 23 10:25 AM EST documented as of this encounter Care Teams Rug Underlay Machine Operator Relationship Specialty Start Date End Date Bridgette Gandhi MD [address] [place] [address] PCP - General Family Medicine 07/01/12 Ramón Bolaños, MollyD [address] [place] [phone] Pharmacist Internal Medicine 11/18/23 documented as of this encounter
--- OUTSIDE RECORDS SUMMARY | 2024-10-19 09:01 | XMS_ITS | Encounter Summary ---
Author Organization [employer] [facility] Address [address] [facility] 7t [place] [address] Care Team Providers Care Epic Cadence Analyst Name Role Phone Bridgette Gandhi MD Primary Care Provider [phone] Ramón Bolaños PharmD Unavailable [phone] Encounter Details Date Type Department Care Team (Late st Contact Info) Description 06/26/2023 Abstract [facility]ULT [facility] [address] [place] [address] Amarjit Foster DDS [address] [place] [address] Social History Tobacco Use Types Packs/Day Years [...] Description 11/01/2024 10:30 AM EDT Office Visit [facility] [address] [place] [address] Bridgette Gandhi MD [address] [place] [address] 01/06/2025 10:00 AM EDT Office Visit [facility] ADULT [facility] [address] [place] [address] Lydia Mac [address] [place] [address] documented as of this encounter Visit Diagnoses Not on filedocumented in this encounter Additional Health Concerns Assessment Noted Time PHQ-9 Depression Total Score: 5 09/11/19 23 10:25 AM EST documented as of this encounter Care Teams Epic Cadence Analyst Relationship Specialty Start Date End Date Bridgette Gandhi MD [address] [place] [address] PCP - General Family Medicine 07/01/12 Ramón Bolaños, Bradley [address] [place] [address] Pharmacist Internal Medicine 11/18/23 documented as of this encounter
--- OUTSIDE RECORDS SUMMARY | 2024-10-19 09:01 | XMS_ITS ---
Author Name Katja Lang NP Address [address] [place] [address] Phone [phone] [facility] Care Team Providers Care Metal Grinder Name Role Phone Katja Lang Unavailable [phone] Unavailable Unavailable Unavailable Unavailable Unavailable Unavailable Reason [...] 2022-03-10 No Data Available [employer] [place] [employer] [place] 0.65 % Solution USE 1-2 SPRAYS IN [...] Resolved Date BPH (benign prostatic hyperplasia) Active -12 N/A Memory impairmentAlzheimer's disease with early onset Active 2022-10-28 N/A MDD (major depressive disord er), recurrent episode, mild Active 2022-09-30 N/A Morbid (severe) obesity due to excess calories Active 2022-09-30 N/A Type 2 diabetes mellitus wit h diabetic neuropathy, unspecifiedType 2 diabetes mellitus with hyperlipidemia Active 2022-09-30 N/A Other problems related to [facility] and other health care Active 2023-10-27 [...] (do not use for phone, instead use 78039-17) [facility]2022 Type 2 diabetes mellitus wit h diabetic neuropathy, unspecifiedHypertensive heart disease with heart failureHeart failure, unspecifiedMorbid (severe) obesity due to excess caloriesMajor depressive disorder, recurrent, mildChronic obstructive pulmonary disease, unspecifiedOther amnesiaUnspecified glaucomaBody mass index (bmi) 39.0-39.9, adult New patient,40-59min; chronic exacerbation, 2 stable chronic or 1 acute illness add add modifier 95 for video (do not use for phone, instead use 02748-67) [facility] 10/28/2022 New patient,40-59min; chronic exacerbation, 2 stable chronic or 1 acute illness add add modifier 95 for video (do not use for phone, instead use 93067-12) [facility] 10/28/2022 New patient,40-59min; chronic exacerbation, 2 stable chronic or 1 acute illness add add modifier 95 for video (do not use for phone, instead use 09271-34) [facility] 10/28/2022 New patient,40-59min; chronic exacerbation, 2 stable chronic or 1 acute illness add add modifier 95 for video (do not use for phone, instead use 84420-89) [facility] 10/28/2022 New patient,40-59min; chronic exacerbation, 2 stable chronic or 1 acute illness add add modifier 95 for video (do not use for phone, instead use 80989-36) [facility] 10/[place]/2022 New patient,40-59min; chronic exacerbation, 2 stable chronic or 1 acute illness add add modifier 95 for video (do not use for phone, instead use 34527-08) [facility] 10/28/2022 New patient,40-59min; chronic exacerbation, 2 stable chronic or 1 acute illness add add modifier 95 for video (do not use for phone, instead use 05383-22) [facility] 10/28/2022 New patient,40-59min; chronic exacerbation, 2 stable chronic or 1 acute illness add add modifier 95 for video (do not use for phone, instead use 64581-89) [facility] 10/28/2022 No Data Available [facility] [place] 10/29/2022 Type 2 diabetes mellitus wit h diabetic neuropathy, unspecifiedMorbid (severe) obesity due to excess caloriesMajor depressive disorder, recurrent, mildHeart failure, unspecifiedHypertensive heart disease with heart failureChronic obstructive pulmonary disease, unspecifiedOther amnesiaUnspecified glaucoma No Data Available [facility] [place] 10/29/2022 No Data Available [facility] [place] 10/29/2022 Estab. patient 30-39min; chronic exacerbation, 2 stable chronic or 1 acute illness add add modifier 95 for video, (do not use for phone, instead use 26910-37) [facility] [place] 10/27/2023 Type 2 diabetes mellitus wit h [...] (do not use for phone, instead use 49142-58) [facility] 10/27/2023 Estab. patient 30-39min; chronic exacerbation, 2 stable chronic or 1 acute illness add add modifier 95 for video, (do not use for phone, instead use 84995-93) [facility] 10/27/2023 Estab. patient 30-39min; chronic exacerbation, 2 stable chronic or 1 acute illness add add modifier 95 for video, (do not use for phone, instead use 88150-00) [facility] 10/27/2023 Estab. patient 30-39min; chronic exacerbation, 2 stable chronic or 1 acute illness add add modifier 95 for video, (do not use for phone, instead use 80748-44) [facility] [place] 10/27/2023 Estab. patient 30-39min; chronic exacerbation, 2 stable chronic or 1 acute illness add add modifier 95 for video, (do not use for phone, instead use 23925-23) [facility] 10/27/2023 Estab. patient 30-39min; chronic exacerbation, 2 stable chronic or 1 acute illness add add modifier 95 for video, (do not use for phone, instead use 08140-88) [facility] 10/27/2023 Estab. patient 30-39min; chronic exacerbation, 2 stable chronic or 1 acute illness add add modifier 95 for video, (do not use for phone, instead use 03666-18) [facility] 10/27/2023 Estab. patient 30-39min; chronic exacerbation, 2 stable chronic or 1 acute illness add add modifier 95 for video, (do not use for phone, instead use 36899-98) [facility] 10/27/2023 Estab. patient 30-39min; chronic exacerbation, 2 stable chronic or 1 acute illness add add modifier 95 for video, (do not use for phone, instead use 16483-56) [facility] Estab. patient 20-29min; 1 stable chronic or 2 minor; add add modifier 95 for video, modifier 93 for phone [facility] 05/[place]/2024 Other chronic painOther prob lems related to medical facilities and other health care Estab. patient 20-29min; 1 stable chronic or 2 minor; add add modifier 95 for video, modifier 93 for phone [facility] 05/30/2024 Estab. patient 20-29min; 1 stable chronic or 2 minor; add add modifier 95 for video, modifier 93 for phone [facility] 05/[place]/20[place] Estab. patient 20-29min; 1 stable chronic or 2 minor; add add modifier 95 for video, modifier 93 for phone [facility] [place] 05/30/2024 Estab. patient 20-29min; 1 stable chronic or 2 minor; add add modifier 95 for video, modifier 93 for phone [facility] 05/30/2024 Estab. patient 20-29min; 1 stable chronic or 2 minor; add add modifier 95 for video, modifier 93 for phone [facility] 05/30/2024 Estab. patient 20-29min; 1 stable chronic or 2 minor; add add modifier 95 for video, modifier 93 for phone [facility] 05/30/2024 No Data Available [facility] 07/[place]/2024 Hypertensive heart disease w ith heart failureHeart failure, unspecifiedSecondary hyperaldosteronismChronic obstructive pulmonary disease, unspecifiedUnspecified glaucomaOther problems related to medical facilities and other health careOther chronic pain No Data Available [facility] 07/25/2024 No Data Available [facility] 07/[place]/2024 Vital Signs Date of [...] Current Smoking Status Current every day smoker 2024-10-19 Sex Male History of Procedures Procedures Service Procedure code Service date Servicing provider Phone# New patient,40-59min; chronic exacerbation, 2 stable chronic or 1 acute illness add add modifier 95 for video (do not use for phone, instead use 53975-08) 94543 2022-10-28 No Data Available No Data Availa [...] No Data Nancy ilable No Data Available [id number] 2022-10-29 No Data Available No Data Available [...] (do not use for phone, instead use 35964-74) 16949 2023-10-27 No Data Available No Data Availa [...] 95 for video, modifier 93 for phone 51371 2024-05-30 No Data Available No Data Availa [...] le No Data Available No Data Available [id number] 2024-07-25 No Data Available No Data Available [...] Patient Education to avoid future hospitalization: [facility].Chronic painOther problems [...] modifier 95)Continue to see PCP. Follow-up with [facility] as [...] persistent NOLEN< blurry vision)10/27/2023:Follows up with PCP, Measurement Coordinator, last visit 2 weeks ago.BP: 119/68. Reported [...] at home.Follow low Sodium diet. Contact CB 24 as needed.Reports intermittent SOB with exertionAlbuterol, AdvairDenies [...] recent or acute respiratory symptoms. Contact CB 09/03 as needed.StableReports leaving refrigerator openDiscussed safety precaution [...] ophthalmology every 3-6 months 10/27/2023:Follows up with Staff Registered Nurse.Continues using: Latanoprost drops.Denies any acute complaint.Reports chronic [...] follow up as instructed.Contact CB 24/7 as needed.CONTINGENCY PLANMember to call for the [...] (no modifier 95)Pain Assessment - Pain Documented (1867F)Continue to see PCP. Follow-up with [facility] as needed for any acute or disease education needs that may arise 09/03.StableLisinopril, Furosemide Avg BP: 120s/60sContinue taking medications as prescribed, continue monitoring BP, discussed low salt diet, exercise as tolerable, and lifestyle interventions. Contact us if developing emergent HTN s/sx (eg. palpitations, persistent NOLEN< blurry vision)07/25/2024:Follows up with PCP, Measurement Coordinator, last visit 2 weeks ago.Taking: amLODIPine Besylate [...] recent or acute respiratory symptoms. Contact CB 24/7 as needed.StableLatanoprost ggtsContinue using medicated eye drops, monitor for acute changes or worsening vision, and continue f/u care and monitoring with PCP and ophthalmology every 3-6 months 07/25/2024:Follows up with Staff Registered Nurse.Continues using: Latanoprost drops.Denies any acute complaint.PAIN CONTINGENCY [...] likely not be covered by health plan. [facility] cc info sent to member and DRIVER RECRUITER. Advised to f/u with recliner request during [...] appointments with your PCP and specialists. Call CB 24/ if you have questions or concerns. Discussed how to contact [facility] via phone or tablet. CB 24/7 phone number provided. 2024-05-30 At least 50% [...]
--- OUTSIDE RECORDS SUMMARY | 2024-10-19 09:01 | XMS_ITS | Encounter Summary ---
Author Organization [facility] [facility] Address [address] [facility] 7t [place] [address] Care Team Providers Care Voltmeter Operator Name Role Phone Bridgette Gandhi MD Primary Care Provider [phone] Ramón Bolaños PharmD Unavailable Reason for Visit * Reason Onset Date Comments ER Follow-up 05/26/2024 Nurse Triage 05/26/2024 Encounter Details Date Type Department Care Team (Late st Contact Info) Description 05/26/2024 Telephone [facility] MEDICINE [address] [place], [place] [phone] Bridgette Gandhi MD [address] [place] [address] ER Follow-up; Nurse Triage Social History Tobacco [...] Please assist with obtaining discharge summary for [facility] ED visit on 05/25/24 for provider review prior to upcoming appointment. Future Appointments Date Time Provider Department Center 05/27/2024 8:45 AM Jeremias Gong MD [facility] 01/11/2025 10:00 AM Susy Dixon PharmD [facility] * Telephone Encounter - Danii Hope [...] Center 05/27/2024 8:45 AM Jeremias Gong MD [facility] 01/11/2025 10:00 AM Susy Dixon PharmD MEDICINE [facility] Insurance verified as active per Real Time Eligibility in cheerapp. Video visit offered and caller accepted Positive Triage Question: * Patient wants to be seen * All higher-acuity triage questions were negative Care Advice Discussed: * Continue Treatment * Reasons To Call Back - You become worse * Telephone Encounter - Russell Dumas - 05/26/2024 2:13 PM EDT Patient calling to report ED visit on : Date: 05/25/24 Hospital: [facility] Seen for: Severe hip and thigh [...] Office Visit [facility] MEDICINE [address] [place] [address] Bridgette Gandhi MD [address] [place] [address] 01/06/2025 10:00 AM EDT Office Visit [facility] ADULT DENTAL [address] [place] [address] Lydia Mac [address] [place] [address] documented as of this encounter Goals Goal [...] documented as of this encounter Care Teams Voltmeter Operator Relationship Specialty Start Date End Date Bridgette Gandhi MD [address] [place] [address] PCP - General Family Medicine 07/01/12 Ramón Bolaños PharmD [address] [place] [address] Pharmacist Internal Medicine 11/18/23 documented as of this encounter
--- OUTSIDE RECORDS SUMMARY | 2024-10-19 09:01 | XMS_ITS | Encounter Summary ---
Author Organization [employer] [facility] Address [address] [place] [address] 7t [place] [address] Care Team Providers Care Whirley Operator Name Role Phone Bridgette Gandhi MD Primary Care Provider [phone] Ramón Bolaños PharmD Unavailable [phone] Encounter Details Date Type Department Care Team (Late Contact Info) Description 04/30/2023 Abstract [facility] MEDICINE [address] [place] [address] [phone] Bridgette Gandhi MD [address] [place] [phone] Social History Tobacco Use Types Packs/Day Years [...] 10:30 AM EDT Office Visit [facility] MEDICINE [address] [place] [address] [phone] Bridgette Gandhi MD 230 [place] [address] 01/06/2025 10:00 AM EDT Office Visit [facility] ADULT DENTAL [address] [place] [address] Lydia Mac [address] [place] [address] documented as of this encounter Procedures Procedure [...] documented as of this encounter Care Teams Whirley Operator Relationship Specialty Start Date End Date Bridgette Gandhi MD [place], [place] [phone] PCP - General Family Medicine 07/01/12 Ramón Bolaños, MollyD [address] [place] [address] [phone] Pharmacist Internal Medicine 11/18/23 documented as of this encounter
[2024-10-19 10:15] LABS: Appearance Urine Turbid; Color Urine RED; Glucose Urine UA Negative (Negative); Leukocyte Esterase Urine Negative (Negative); Nitrite Urine Negative (Negative); UMIC TRIGGER UA YES; Urine Blood Large (3+) (Negative); Urine Ketones Negative (Negative); Urine Protein 100 (2+) mg/dL (Neg-Trace)
[2024-10-19 10:40] LABS: Bacteria Urine 4+ (None Seen); Hyaline Casts Urine 0-2 /LPF (0-2); RBC Urine >20 /HPF (0-2); WBC Urine 21-50 /HPF (0-5)
== END 2024-10-19 08:26 | disposition home or self-care (01) ==
LOC: HO.LAB 08:25
PROVIDERS: PCP Family Medicine; Visit Provider Urology
DX: R31.9 Hematuria, unspecified (principal)
CPT/HCPCS: 81001; 87086

== ENCOUNTER 2024-10-28 09:13 | Outpatient (REF) | payer OTHER, SELFPAY ==
--- OUTSIDE RECORDS SUMMARY | 2024-10-28 09:58 | XMS_ITS | Encounter Summary ---
Author Organization [employer] [facility] Address [address] [facility] 7t [place] [address] Care Team Providers Care Cutting And Printing Machine Operator Name Role Phone Bridgette Gandhi MD Primary Care Provider [phone] Ramón Bolaños PharmD Unavailable [phone] Encounter Details Date Type Department Care Team (Latest Contact Info) Description 06/20/2022 Abstract [facility] CON[facility] Dental, Provider, DDS Social History [...] Description 11/01/2024 10:30 AM EDT Office Visit [facility] MEDICINE 230 [place] [address] Bridgette Gandhi MD 230 [place] [address] 01/06/2025 10:00 AM EDT Office Visit [facility] ADULT DENTAL [address] [place] [address] Lydia Mac 230 [place] [address] documented as of this encounter Visit Diagnoses Not on filedocumented in this encounter Care Teams Cutting And Printing Machine Operator Relationship Specialty Start Date End Date Bridgette Gandhi MD 230 [place], [place] [phone] PCP - General Family Medicine 07/01/12 Ramón Bolaños, MollyD [address] [place] [address] Pharmacist Internal Medicine 11/18/23 documented as of this encounter
--- OUTSIDE RECORDS SUMMARY | 2024-10-28 09:58 | XMS_ITS | Encounter Summary ---
Author Organization [employer] [facility] Address [address] [place] [address] 7t [place] [address] Care Team Providers Care Correctional Treatment Specialist Name Role Phone Bridgette Gandhi MD Primary Care Provider [phone] Ramón Bolaños PharmD Unavailable [phone] Encounter Details Date Type Department Care Team (Late st Contact Info) Description 07/31/2022 Abstract [facility] ADULT DENTAL [address] [place], [place] [phone] Lydia Mac [address] [place] [address] Social History Tobacco Use Types Packs/Day Years [...] 11/01/2024 10:30 AM EDT Office Visit [facility] MEDICINE [address] [place], [place] [phone] Bridgette Gandhi MD 230 [place], [place] [phone] 01/06/2025 10:00 AM EDT Office Visit [facility] ADULT DENTAL [address] [place], [place] [phone] Lydia Mac 230 [place] [address] documented as of this encounter Visit Diagnoses Not on filedocumented in this encounter Care Teams Correctional Treatment Specialist Relationship Specialty Start Date End Date Bridgette Gandhi MD 230 [place] [address] PCP - General Family Medicine 07/01/12 Ramón Bolaños, Bradley [address] [place] [address] Pharmacist Internal Medicine 11/18/23 documented as of this encounter
--- OUTSIDE RECORDS SUMMARY | 2024-10-28 09:58 | XMS_ITS | Encounter Summary ---
Author Organization [facility] Address [address] [facility] 7t [place] [address] Care Team Providers Care Malt Specifications Control Assistant Name Role Phone Bridgette Gandhi MD Primary Care Provider [phone] Ramón Bolaños PharmD Unavailable [phone] Encounter Details Date Type Department Care Team (Late st Contact Info) Description 10/19/2024 Orders Only GENERIC EXTERNAL DATA DEPARTMENT Provider, [...] Description 11/01/2024 10:30 AM EDT Office Visit [facility] MEDICINE 230 [place] [address] Bridgette Gandhi MD [address] [place] [address] 01/06/2025 10:00 AM EDT Office Visit [facility] ADULT DENTAL 230 [place] [address] Lydia Mac 230 [place] [address] documented as of this encounter Goals Goal Patient Goal Type Associated Problems Recent Progress Patient-Stated? Author Blood Pressure < 140/90 Blood Pressure 130/60(2024 10:46 AM EST) No Ramón Bolaños, PharmJameson Hemoglobin A1c < 7 Result Component 7(08/04/2024 11:32 AM EST) No Ramón Bolaños PharmD documented as of this encounter Procedures Procedure Name Priority Date/Time Associated Diagnosis Comments URINALYSIS, COMPLETE Routine 10/19/2024 8:55 AM EST CULTURE, URINE, ROUTINE Routine 10/19/2024 8:55 AM EST documented in this encounter Results * Culture, Urine, Routine (10/19/2024 8:55 AM EST) Urine Urine specimen obtained by clean catch procedure / Unknown 10/19/2024 8:55 AM EST 10/19/2024 9:56 AM EST Comment:UACC Narrative [facility] - 10/21/2024 11:46 AM EST Urine Culture Report Result Urine Culture < 10,000 cfu/ml Specimen Source: Urine clean catch us Generic External Data Provider LAB MICROBIOLOGY - GENERAL ORDERABLES Final Result Performing Organization Address [facility] Co de Phone Number [facility] [address] [place] [phone] * (ABNORMAL) Urinalysis Complete (10/19/2024 8:55 AM EST) Color Urine RED [facility] Appearance Urine Turbid [facility] PH 6.0 5.0 - 9.0 [facility] Glucose Urine UA Negative Negative mg/dL [facility] Urine Blood Large (3+)(A) Negative [facility] Specific Goldsmith - Urine 1.020 1.005 - 1.025 [facility] Urine Protein 100 (2+)(A) Neg-Trace mg/dL [facility] Urine Ketones Negative Negative mg/dL [facility] Nitrite Urine Negative Negative [facility] Leukocyte Esterase Urine Negative Negative [facility] RBC Urine >20(A) 0 - 2 /HPF [facility] Urine WBC 21-50 0 - 5 /HPF [facility] Urine Squamous Epithelial Cell 3-5 0 - 2 /HPF [facility] Urine Bacteria 4+ None Seen [facility] Hyaline Casts, Urine 0-2 0 - 2 /LPF [facility] 10/19/2024 8:55 AM EST 10/19/2024 9:56 AM EST us Generic External Data Provider LAB URINE ORDERAB LES Final Result Performing Organization Address [facility]/ZIP Co de Phone Number [facility] [address] [place] [phone] documented in this encounter Visit Diagnoses Not on filedocumented in this encounter Additional Health Concerns Assessment Noted Time PHQ-9 Depression Total Score: 0 04/07/20 24 11:45 AM EDT documented as of this encounter Care Teams Malt Specifications Control Assistant Relationship Specialty Start Date End Date Bridgette Gandhi MD [address] [place] [address] PCP - General Family Medicine 07/01/12 Ramón Bolaños, MollyD [address] [place] [address] Pharmacist Internal Medicine 11/18/23 documented as of this encounter
--- OUTSIDE RECORDS SUMMARY | 2024-10-28 09:58 | XMS_ITS | Encounter Summary ---
Author Organization [employer] [facility] Address [address] [place] [address] 7t [place] [address] Care Team Providers Care Resource Program Teacher Name Role Phone Bridgette Gandhi MD Primary Care Provider [phone] Ramón Bolaños PharmD Unavailable [phone] Encounter Details Date Type Department Care Team (Late st Contact Info) Description 07/30/2022 Abstract [facility] ADULT DENTAL [address] [place], [place] [phone] Lydia Mac [address] [place] [address] Social History Tobacco Use Types Packs/Day Years [...] Description 11/01/2024 10:30 AM EDT Office Visit [facility] MEDICINE [address] [place], [place] [phone] Bridgette Gandhi MD 230 [place], [place] [phone] 01/06/2025 10:00 AM EDT Office Visit [facility] ADULT DENTAL [address] [place], [place] [phone] Lydia Mac 230 [place] [address] documented as of this encounter Procedures Procedure [...] on filedocumented in this encounter Care Teams Resource Program Teacher Relationship Specialty Start Date End Date Bridgette Gandhi MD [address] [place] [address] PCP - General Family Medicine 07/01/12 Ramón Bolaños PharmD [address] [place] [address] Pharmacist Internal Medicine 11/18/23 documented as of this encounter
--- OUTSIDE RECORDS SUMMARY | 2024-10-28 09:58 | XMS_ITS | Encounter Summary ---
Author Organization [facility] Address [address] [facility] 7t [place] [address] Care Team Providers Care Case Planner Name Role Phone Bridgette Gandhi MD Primary Care Provider [phone] Ramón Bolaños PharmD Unavailable [phone] Reason for Visit * Reason Comments Med Refill Encounter Details Date Type Department Care Team (Late st Contact Info) Description 10/22/2022 Refill [facility] MEDICINE [address] [place] [address] Tamela Drake MD [address] [place] [address] Dyslipidemia (Primary Dx) Social History Tobacco Use [...] 11/01/2024 10:30 AM EDT Office Visit [facility] MEDICINE [address] [place] [address] Bridgette Gandhi MD [address] [place] [address] 01/06/2025 10:00 AM EDT Office Visit [facility] ADULT DENTAL [address] [place], [place] [phone] Greg Macaris [address] [place] [address] documented as of this encounter Visit Diagnoses Diagnosis Dyslipidemia- Primary Other and unspecified hyperlipidemia documented in this encounter Additional Health Concerns Assessment Noted Time PHQ-9 Depression Total Score: 5 09/11/19 23 10:25 AM EST documented as of this encounter Care Teams Case Planner Relationship Specialty Start Date End Date Bridgette Gandhi MD [address] [place] [address] PCP - General Family Medicine 07/01/12 Ramón Bolaños, MollyD [address] [place] [address] [phone] Pharmacist Internal Medicine 11/18/23 documented as of this encounter
--- OUTSIDE RECORDS SUMMARY | 2024-10-28 09:58 | XMS_ITS | Encounter Summary ---
Author Organization [facility] [facility] [place] [facility] Address [address] [facility] 7t [place] [address] Care Team Providers Care Fitter Mechanic Name Role Phone Bridgette Gandhi MD Primary Care Provider [phone] Ramón Bolaños PharmD Unavailable [phone] Encounter Details Date Type Department Care Team (Late st Contact Info) Description 10/09/2022 Orders Only [facility] MEDICINE [address] [place] [address] Bridgette Gandhi MD [address] [place] [address] Spinal stenosis of lumbar region with neurogenic [...] Description 11/01/2024 10:30 AM EDT Office Visit [facility] MEDICINE [address] [place] [address] Bridgette Gandhi MD [address] [place] [address] 01/06/2025 10:00 AM EDT Office Visit [facility] ADULT DENTAL [address] [place], [place] [phone] Greg Macaris [address] [place] [address] documented as of this encounter Visit Diagnoses Diagnosis 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
--- OUTSIDE RECORDS SUMMARY | 2024-10-28 09:58 | XMS_ITS | Encounter Summary ---
Author Organization [employer] Address [address] [facility] 7t [place] [address] Care Team Providers Care Cementer Oil Well Name Role Phone Bridgette Gandhi MD Primary Care Provider [phone] Ramón Bolaños PharmD Unavailable [phone] Reason for Visit * Reason Onset Date Comments chart prep 10/27/2024 Encounter Details Date Type Department Care Team (Late st Contact Info) Description 10/27/2024 Telephone [facility] MEDICINE [address] [place], [place] [phone] Bridgette Gandhi MD [address] [place], [place] [phone] chart prep Social History Tobacco Use Types Packs/Day Years [...] the past 12 months, has t he [email or web address], gas, oil or water company threatened to [...] Telephone Encounter - [place] - 10/27/2024 2:26 PM EDT ..chart Prep Labs: not done 08/25/24 Images: not applicable Vaccines due: Covid Due, Tdap Due, and Flu Due Referrals: Completed Screenings: Not Applicable Overdue care gaps: A1C, Glucose, and Disability documented in this encounter Plan of Treatment Upcoming Encounters Date Type Department Care Team (Late st Contact Info) Description 11/01/2024 10:30 AM EDT Office Visit [facility] MEDICINE [address] [place] [address] Bridgette Gandhi MD [address] [place] [address] 01/06/2025 10:00 AM EDT Office Visit [facility] ADULT DENTAL [address] [place] [address] Lydia Mac [address] [place] [address] documented as of this encounter Goals Goal [...] documented as of this encounter Care Teams Cementer Oil Well Relationship Specialty Start Date End Date Bridgette Gandhi MD [address] [place] [address] PCP - General Family Medicine 07/01/12 Ramón Bolaños PharmD [address] [place] [address] Pharmacist Internal Medicine 11/18/23 documented as of this encounter
--- OUTSIDE RECORDS SUMMARY | 2024-10-28 09:59 | XMS_ITS | Encounter Summary ---
Author Organization [employer] Address [address] [facility] 7t [place] [address] Care Team Providers Care Airplane Captain Name Role Phone Bridgette Gandhi MD Primary Care Provider [phone] Ramón Bolaños PharmD Unavailable [phone] Reason for Visit * Reason Comments Med Refill Encounter Details Date Type Department Care Team (Late st Contact Info) Description 03/10/2024 Refill [facility] MEDICINE [address] [place], [place] [phone] Bridgette Gandhi MD [address] [place], [place] [phone] Social History Tobacco Use Types Packs/Day Years [...] the past 12 months, has t he [employer], gas, oil or water company threatened to [...] Description 11/01/2024 10:30 AM EDT Office Visit [facility] MEDICINE [address] [place] [phone] Bridgette Gandhi MD [address] [place] [address] 01/06/2025 10:00 AM EDT Office Visit [facility] ADULT DENTAL [address] [place] [address] Lydia Mac [address] [place] [address] documented as of this encounter Goals Goal [...] documented as of this encounter Care Teams Airplane Captain Relationship Specialty Start Date End Date Bridgette Gandhi MD [address] [place] [address] PCP - General Family Medicine 07/01/12 Ramón Bolaños, Bradley [address] [place] [address] Pharmacist Internal Medicine 11/18/23 documented as of this encounter
--- OUTSIDE RECORDS SUMMARY | 2024-10-28 09:59 | XMS_ITS | Encounter Summary ---
Author Organization [employer] [facility] Address [address] [facility] 7t [place] [address] Care Team Providers Care Hvac Project Manager Name Role Phone Bridgette Gandhi MD Primary Care Provider [phone] Ramón Bolaños PharmD Unavailable [phone] Encounter Details Date Type Department Care Team (Late st Contact Info) Description 06/26/2023 Abstract [facility] ADULT DENTAL [address] [place] [address] Amarjit Foster DDS [address] [place] [address] Social History Tobacco Use Types Packs/Day Years [...] Description 11/01/2024 10:30 AM EDT Office Visit [facility] MEDICINE [address] [place] [address] Bridgette Gandhi MD [address] [place] [address] 01/06/2025 10:00 AM EDT Office Visit [facility] ADULT DENTAL [address] [place] [address] Lydia Mac [address] [place] [address] documented as of this encounter Visit Diagnoses Not on filedocumented in this encounter Additional Health Concerns Assessment Noted Time PHQ-9 Depression Total Score: 5 09/11/19 23 10:25 AM EST documented as of this encounter Care Teams Hvac Project Manager Relationship Specialty Start Date End Date Bridgette Gandhi MD [address] [place] [address] PCP - General Family Medicine 07/01/12 Ramón Bolaños, Bradley [address] [place] [address] Pharmacist Internal Medicine 11/18/23 documented as of this encounter
--- OUTSIDE RECORDS SUMMARY | 2024-10-28 09:59 | XMS_ITS | Clinical Summary ---
Author Organization [employer] Address [address] [place] [address] Care Team Providers Care Acid Maker Name Role Phone Bridgette Fagan MD Primary Care Provider [phone] Ramón Bolaños PharmD Unavailable [phone] Allergies Active Allergy Reactions Criticality Noted Date [...] mL 12 3 Active Deep Sea Nasal Aylett 0.65 % nasal spray USE 1-2 SPRAYS [...] 3 4 Active Lancets (OneTouch Delica Plus [id number]) miscIndications:T ype 2 diabetes mellitus without complications ([facility]) TEST BLOOD SUGAR TWICE DAILY 100 [...] (08/25/2024 2:37 PM EST): - following with [facility] urology, last seen on 07/03/24 for cystoscopy - continue adequate hydration - scheduled for bladder stone removal with Dr. 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 Recommended to continue conservative management of compression stocking, DASH diet, and leg elevation. Discontinued Diltiazem due to possible side effects. -possible venous ablation -06/02/23 venous study showed b/l venous insufficiency. -recommended to discuss with his data capture specialist and vascular specialist at [facility] for other treatment options, if appropriate -discontinued amlodipine and hydralazine recently - continue torsemide Assessment & Plan (08/14/2023 11:15 AM EST): -[facility] Apr 2021. Recommended to continue conservative management of compression stocking, DASH diet, and leg elevation. Discontinued Diltiazem due to possible side effects. -possible venous ablation -06/02/23 venous study showed b/l venous insufficiency. -recommended to discuss with his data capture specialist and vascular specialist at [facility] for other treatment options, if appropriate Assessment & Plan (05/11/2023 8:29 AM EDT): -[facility] Apr [facility]. Recommended to continue conservative management of compression stocking, DASH diet, and leg elevation. Discontinued Diltiazem due to possible side effects. -possible venous ablation -schedule venous study Assessment & Plan (2022 9:36 AM EST): -[facility]. Recommended to [...] to pt's questionable adherence - comanaged with data capture specialist, powdered sugar pulverizer operator, watermaster, and pharmacist - 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, [...] to pt's questionable adherence - comanaged with data capture specialist, powdered sugar pulverizer operator, watermaster, and pharmacist - 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, [...] to pt's questionable adherence - comanaged with data capture specialist, powdered sugar pulverizer operator, and pharmacist - check primary aldosteronism; may [...] to pt's questionable adherence - comanaged with data capture specialist, powdered sugar pulverizer operator, and pharmacist - check primary aldosteronism; may [...] to pt's questionable adherence - comanaged with data capture specialist, powdered sugar pulverizer operator, and pharmacist - check primary aldosteronism; may [...] to pt's questionable adherence - comanaged with data capture specialist, watermaster, and pharmacist -?24-hr ambulatory BP monitor result [...] 2024, treated with azithromycin. - Restarted seeing [facility] Pulmonology providers. Seen by Dr. Castillo on [...] 2024, treated with azithromycin. - Restarted seeing [facility] Pulmonology providers. Seen by Dr. Castillo on [...] received prednisone and azithromycin. - Restarted seeing [facility] Pulmonology providers. Seen by Dr. Castillo on [...] received prednisone and azithromycin. - Restarted seeing [facility] Pulmonology providers. Seen by Dr. Castillo on [...] received prednisone and azithromycin. - Restarted seeing [facility] Pulmonology providers. Last seen by Dr. Castillo [...] PLAN FOR COPD (CHRONIC OBSTRUCTIVE PULMONARY DISEASE) ([facility]) WRITTEN ON 08/13/2023 4:56 AM BY BRIDGETTE FAGAN MD Last exacerbation due to CAP in Aug 2017 Following with [facility] pulmonology, Dr. Cruz Continue Advair as maintenance. [...] PLAN FOR COPD (CHRONIC OBSTRUCTIVE PULMONARY DISEASE) ([facility]) WRITTEN ON 05/11/2023 8:27 AM BY BRIDGETTE FAGAN MD Last exacerbation due to CAP in Aug 2017 Following with [facility] pulmonology, Dr. Cruz Continue Advair as maintenance. [...] to CAP in Aug 2017 Following with [facility] pulmonology, Dr. Cruz Continue Advair as maintenance. [...] -Restarted auto-PAP in 2019 -Currently followed by [facility] sleep clinic, last appointment in May 2023, auto-PAP 8-20 cm H2O -Continue current setting -Work on lifestyle modifications Assessment & Plan (08/04/2024 10:59 PM EST): -Last sleep study on 07/22/2018. Dx SHANON -Restarted auto-PAP in 2019 -Currently followed by [facility] sleep clinic, last appointment in May 2023, auto-PAP 8-20 cm H2O -Continue current setting -Work on lifestyle modifications Assessment & Plan (04/07/2024 11:48 AM EDT): -Last sleep study on 07/22/2018. Dx SHANON -Restarted auto-PAP in 2019 -Currently followed by [facility] sleep clinic, last appointment in May 2023, auto-PAP 8-20 cm H2O -Continue current setting -Work on lifestyle modifications Assessment & Plan (08/13/2023 4:54 AM EST): -Last sleep study on 07/22/2018. Dx SHANON -Restarted auto-PAP in 2019 -Currently followed by [facility] sleep clinic, last appointment in May 2023, auto-PAP 8-20 cm H2O -Continue current setting -Work on lifestyle modifications Assessment & Plan (05/11/2023 8:26 AM EDT): -Last sleep study on 07/22/2018. Dx SHANON -Restarted auto-PAP in 2019 -Currently followed by [facility] sleep clinic, last appt in 12/31/21, auto-PAP 8-20 cm H2O -Pt received new CPAP machine and now scheduled for Mask Fitting d/t pain on his head. -Continue current setting -Work on lifestyle modifications -Will request [facility] sleep medicine clinic to follow up and provide recommendation. Assessment & Plan (01/21/2023 10:57 AM EDT): -Last sleep study on 07/22/2018. Dx SHANON -Restarted auto-PAP in 2019 -Currently followed by [facility] sleep clinic, last appt in 11/13/22 , New CPAP was prescribed. APAP 8-20 cmH2O. -Continue current setting -Work on lifestyle modifications Assessment & Plan (2022 2:08 PM EST): -Last sleep study on 07/22/2018. Dx SHANON -Restarted auto-PAP in 2019 -Currently followed by [facility] sleep clinic, last appt in 12/31/21, auto-PAP 8-20 cm H2O -Pt received new CPAP machine and now scheduled for Mask Fitting d/t pain on his head. -Continue current setting -Work on lifestyle modifications -Will request [facility] sleep medicine clinic to follow up and provide recommendation. Assessment & Plan (09/24/2022 10:57 AM EST): -Last sleep study on 07/22/2018. Dx SHANON -Restarted auto-PAP in 2019 -Currently followed by [facility] sleep clinic, last appt in 12/31/21, auto-PAP [...] check with Lung Cancer screening program in [facility] for next CT scan schedule -Continue working [...] (08/25/2024 2:37 PM EST): - following with [facility] Urology - continue doxazosin and finasteride Assessment & Plan (08/11/2024 6:20 AM EST): - following with [facility] U[facility] - continue doxazosin and finasteride Assessment [...] Encounters Date Type Department Care Team Description 10/27/2024 Telephone [facility] MEDICINE [address] [place] [address] Bridgette Fagan MD chart prep 10/19/2024 Orders Only GENERIC EXTERNAL DATA DEPARTMENT Provider, Generic External Data 10/17/2024 1:00 PM EST Office Visit [facility] CHC ADULT DENTAL [address] [place], [place] [phone] Byron Enriquez 09/17/2024 Orders Only GENERIC EXTERNAL DATA DEPARTMENT Provider, Generic External Data 09/16/2024 Refill [facility] [address] [place] [address] Bridgette Fagan MD Dyslipidemia 09/14/2024 Orders Only GENERIC EXTERNAL DATA DEPARTMENT Provider, Generic External Data 09/13/2024 Orders Only GENERIC EXTERNAL DATA DEPARTMENT Provider, Generic External Data 09/12/2024 10:15 AM EST Office Visit [facility] ADULT DENTAL [address] [place] [address] Byron Enriquez 08/25/2024 Telephone [facility] [address] [place] [address] Bridgette Fagan MD 08/24/2024 11:30 AM EST Office Visit [facility] ADULT DENTAL [address] [place] [address] Amarjit Foster DDS Caries of cervical margin of tooth (Primary Dx); Odontalgia 08/22/2024 2:30 PM EST Office Visit [address] [address] Bridgette Fagan MD Bladder stones (Primary Dx); Preop examination; Benign prostatic hyperplasia with lower urinary tract symptoms, symptom details unspecified; Controlled type 2 diabetes mellitus without complication, without long-term current use of insulin ([facility]); Hypertension, unspecified type; Obstructive sleep apnea syndrome; Moderate persistent asthma without complication; Chronic obstructive pulmonary disease, unspecified COPD type ([facility]) 08/22/[address] [address] [place] 08/22/2024 Travel 08/19/[address] [address] [place] dme recliner 08/19/[address] [address] Bridgette Fagan MD 08/04/2024 11:00 AM EST Office Visit [address] [address] Bridgette Fagan MD Periodic limb movement disorder (PLMD) (Primary Dx); Obstructive sleep apnea syndrome; Lumbar radiculopathy; Chronic obstructive pulmonary disease, unspecified COPD type ([facility]); Hypertension, unspecified type; Controlled type 2 diabetes mellitus without complication, without long-term current use of insulin ([facility]); Tremor; Benign prostatic hyperplasia with lower urinary tract symptoms, symptom details unspecified; Lower urinary tract symptoms (LUTS); Bladder stones; Memory difficulties; 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 ([facility]) 08/04/2024 Telephone [facility] MEDICINE [address], [place] [phone] Bridgette Fagan MD Pre-op Exam 08/04/2024 Travel 08/01/2024 9:30 AM EST Office Visit [facility] ADULT DENTAL [address], [place] [phone] Amarjit Foster DDS Fractured dental jainism with loss of material (Primary Dx) from Last 3 Months Immunizations Name Administration [...] Description 11/01/2024 10:30 AM EDT Office Visit [facility] MEDICINE [address] [place] [address] Bridgette Fagan MD [address] [place], [place] [phone] 01/06/2025 10:00 AM EDT Office Visit [facility] ADULT DENTAL [address], [place] [phone] Lydia aMc [address] [place] [address] Health Maintenance Due Date Last Done Comments [...] URINE, ROUTINE Routine 10/19/2024 8:55 AM EST CASE PRESENTATION, DETAILED AND EXTENSIVE [...] complication, without long-term current use of insulin ([facility]) POCT GLUCOSE Routine 08/04/2024 11:31 AM EST Controlled type 2 diabetes mellitus without complication, without long-term current use of insulin ([facility]) CASE PRESENTATION, DETAILED AND EXTENSIVE TREATMENT PLANNING [...] complication, without long-term current use of insulin ([facility]) from Last 3 Months or Most Recently Relevant to Health Maintenance Results * (ABNORMAL) Urinalysis Complete (10/19/2024 8:55 AM EST) Color Urine RED [facility] Appearance Urine Turbid [facility] PH 6.0 5.0 - 9.0 [facility] Glucose Urine UA Negative Negative mg/dL [facility] Urine Blood Large (3+)(A) Negative [facility] Specific [place] - Urine 1.020 1.005 - 1.025 [facility] Urine Protein 100 (2+)(A) Neg-Trace mg/dL [facility] Urine Ketones Negative Negative mg/dL [facility] Nitrite Urine Negative Negative [facility] Leukocyte Esterase Urine Negative Negative [facility] RBC Urine >20(A) 0 - 2 /HPF [facility] Urine WBC 21-50 0 - 5 /HPF [facility] Urine Squamous Epithelial Cell 3-5 0 - 2 /HPF [facility] Urine Bacteria 4+ None Seen [facility] Hyaline Casts, Urine 0-2 0 - 2 /LPF [facility] 10/19/2024 8:55 AM EST 10/19/2024 9:56 AM EST Generic External Data Provider LAB URINE ORDERAB LES Final Result Performing Organization Address [facility] Co de Phone Number [facility] [address] [place] [address] [phone] * Culture, Urine, Routine (10/19/2024 8:55 AM EST) Only the most recent of2 resultswithin the time period is included. Urine Urine specimen obtained by clean catch procedure / Unknown 10/19/2024 8:55 AM EST 10/19/2024 9:56 AM EST Comment:UACC Narrative [facility] - 10/21/2024 11:46 AM EST Urine Culture Report Result Urine Culture < 10,000 cfu/ml Specimen Source: Urine clean catch Generic External Data Provider LAB MICROBIOLOGY - GENERAL ORDERABLES Final Result Performing Organization Address [facility] Co de Phone Number [facility] [address] [place] [address] [phone] * (ABNORMAL) Urinalysis, Complete, with Reflex to Culture (09/17/2024 10:55 AM EST) Color Urine Yellow [facility] Appearance Urine Clear [facility] PH 5.5 5.0 - 9.0 [facility] Glucose Urine UA Negative Negative mg/dL [facility] Urine Blood Large (3+)(A) Negative [facility] Specific [place] - Urine 1.010 1.005 - 1.025 [facility] Urine Protein 100 (2+)(A) Neg-Trace mg/dL [facility] Urine Ketones Negative Negative mg/dL [facility] Nitrite Urine Negative Negative [facility] Leukocyte Esterase Urine Moderate (2+)(A) Negative [facility] RBC Urine >20(A) 0 - 2 /HPF [facility] Urine WBC 11-20(A) 0 - 5 /HPF [facility] Urine Squamous Epithelial Cell 0-2 0 - 2 /HPF [facility] Urine Bacteria None Seen None Seen [facility] Hyaline Casts, Urine 3-5 0 - 2 /LPF [facility] 09/17/2024 10:5 5 AM EST 09/17/2024 11:02 AM EST Narrative [facility] - 09/17/2024 11:17 AM EST Urine, [place] Generic External Data Provider LAB URINE ORDERAB LES Final Result Performing Organization Address [facility] de Phone Number [facility] [address] [place] [phone] * (ABNORMAL) Glucose, Whole Blood (09/14/2024 7:33 AM EST) Only the most recent of5 resultswithin the time period is included. Glucose, Whole Blood 116(H) 60 - 115 mg/dL [facility] Comment:METER #: [id number] 09/14/2024 7:33 AM EST 09/14/2024 7:37 AM EST us Generic External Data Provider LAB BLOOD ORDERAB LES Final Result Performing Organization Address [facility] Co de Phone Number [facility] [address] [place] [phone] * (ABNORMAL) CBC (09/14/2024 5:25 AM EST) White Blood Count 10.8 4.8 - 10.8 X10*3/uL [facility] Red Blood Count 4.16(L) 4.60 - 5.80 X10*6/uL [facility] Hemoglobin 12.8(L) 14.0 - 18.0 g/dl [facility] Hematocrit 38.3(L) 42.0 - 52.0 % [facility] Mean Corpuscular Volume 92.1 80.0 - 98.0 fL [facility] Mean Corpuscular Hemoglobin 30.8 27.0 - 33.0 pg [facility] Mean Corpuscular HGB Conc 33.4 31.0 - 36.0 g/dl [facility] Red Cell Distribution Width 13.1 11.0 - 16.0 % [facility] Platelet Count 141(L) 160 - 400 X10*3/uL [facility] Mean Platelet Volume 12.3 9.4 - 12.4 fL [facility] NRBC Pct Auto 0.0 0.0 - 0.2 /100WBC [facility] NRBC Abs Auto 0.000 0.0 - 0.012 X10*3/uL [facility] 09/14/2024 5:25 AM EST 09/14/2024 5:48 AM EST us Generic External Data Provider LAB BLOOD ORDERAB LES Final Result Performing Organization Address City/State/[facility] Co de Phone Number [facility] [address] [place] [phone] * (ABNORMAL) Basic Metabolic Panel (09/14/2024 5:25 AM EST) [facility] Sodium 140 135 - 145 mmol/L [facility] Potassium 3.5 3.3 - 5.1 mmol/L [facility] Chloride 106 96 - 108 mmol/L [facility] Carbon Dioxide 27 22 - 29 mmol/L [facility] Anion Gap 11(L) 12 - 20 [facility] Urea Nitrogen (BUN) 16 9 - 16 mg/dL [facility] Creatinine, Serum 0.82 0.5 - 1.4 mg/dL [facility] Creatinine Clr Calc Pharmacy 85.9 [facility] Comment:eGFR (calculated fro m the MDRD study equation) and eCrCl(calculated from the Cockcroft-Gault equation) are based ondifferent parameters and may not yield comparable results.If eCrCl result is absurd, please check patient'sheight/weight. Estimated Glomerular Filt Rate >60 [facility] Comment:Chronic Kidney Disea se: Estimated GFR < 60 mL/min/1.79h5Mbqzie Kidney Disease: Estimated GFR < 15 mL/min/1.73m2 Glucose 108 60 - 115 mg/dL [facility] Calcium 8.6 8.4 - 10.2 mg/dL [facility] 09/14/2024 5:25 AM EST 09/14/2024 5:48 AM EST us Generic External Data Provider LAB BLOOD ORDERAB LES Final Result [facility] [address] [place] [phone] * Gross and Microscopic Level 4 (09/13/2024 11:10 AM EST) 09/13/2024 11:1 0 AM EST 09/13/2024 12:20 PM EST Narrative [facility] - 09/15/2024 3:21 PM EST ----- ------- Name: Bharathi Walsh ? Age/Sex: 78/M ? : 1945 Unit#: [id number] ?? Attend Dr: Kishore Ayala MD ?Re09/13/24 ?Status: DEP SDC ? Location: HO.SSS ?Disch: ? ----- ------- SPEC : [id number] ?RECD: 09/13/24-1220 ? STATUS: ??SOUT ? REQ NUM: [id number] ? ALDO: 09/13/24-1110 ? SUBM DR: Kishore [...] Copies To: ?? Kishore Ayala MD ?? [facility] ?? [address] [place] [address] [facility] [address] ?? [place] [address] ?? [phone] ?? [email or web address] ?? Bridgette Faagn MD ?? [facility] ?? [address] [facility] ?? [place] [address] ?? [phone] ? CONTINUED ON NEXT PAGE ----- ------- Name: Bharathi Walsh ? Age/Sex: 78/M ? : 1945 Unit#: [id number] ?? Attend Dr: Kishore Ayala MD ?Re09/13/24 ?Status: DEP SDC ? Location: HO.SSS ?Disch: ? ----- ------- SPEC : [id number] ?RECD: 09/13/240 ? STATUS: ??SOUT ? REQ NUM: [id number] ? ALDO: 09/13/24-1110 ? SUBM DR: Kishore Ayala MD ? ENTERED: ??09/13/24-9 ?SP TYPE: Surgical ? OTHR DR: Bridgette Fagan MD ? ORDERED: ??Gross Micro L4 ? ----- ------- Signed (signature on file) Jesse Stuart MD 09/15/24 1521 ? ----- ------- ? END OF REPORT ? Generic External Data Provider LAB CYTOLOGY ORDE RABLES Final Result Performing Organization Address City/State/[facility] Co de Phone Number [facility] [address] [place], [place] [phone] * (ABNORMAL) POCT glycosylated hemoglobin (Hgb A1c) (08/04/2024 11:32 AM EST) Hemoglobin A1C 7.0(A) 4.0 - 6.0 % QC Media Lot # [id number] Lot# Expiration Date [id number] Blood Capillary blood specimen / Unknown 08/04/2024 11:32 AM EST Bridgette Fagan MD POINT OF CARE TEST ENTER/EDIT OR DERABLES Final Result * POCT glucose manually resulted (08/04/2024 11:31 AM EST) Glucose Blood, POC 115 60 - 200 mg/dL QC Media Lot # [id number] Lot# Expiration Date ,674,250 Blood Capillary blood specimen / Unknown 08/04/2024 [...] EDT Narrative 12/27/2023 11:40 PM EDT ? [facility] ?[address] ?[place] [address] ? CT Scan Report ? Signed ? Patient: Bharathi Walsh ?M ?? R#: [id number] ? : 1945 ?Acct:[id number] ? Age/Sex: 78 / M ?ADM Date: 12/22/23 ? Loc: HO.CT ? Attending Dr: Tc Castillo MD ? Ordering Physician: Tc Castillo MD ?? Date of Service: 12/22/23 ?? Procedure(s): CT lung screening ?? Accession Number(s): [id number] ? cc: Tc Castillo MD; Bridgette Fagan [...] for CT CHEST LOW DOSE CANCER SCREENING ([id number]) ?? can be placed. ? Dictated By: ?Kun Enciso MD ? Signed By: ?<Electronically signed by Kun Enciso MD in OV> ? 12/27/236 ? DD/ 0958 ? TD/TT: ? Decorating Machine Operator: SS ? Procedure Note Colton Guy - 12/27/[address] [place] [address] [address] Scan Report Signed Patient: Shalom Walsh R#: [id number] : 6Acct:[id number] Age/Sex: 78 / MADM Date: 12/22/23 Loc: .CT Attending Dr: Tc Castillo MD Ordering Physician: Tc Castillo MD Date of Service: 12/22/23 Procedure(s): CT lung screening Accession Number(s): [id number] cc: Tc Castillo MD; Bridgette Fagan MD [...] for CT CHEST LOW DOSE CANCER SCREENING ([id number]) can be placed. Dictated By: Kun Enciso MD Signed By: <Electronically signed by Kun Enciso MD in OV> 12/27/23 2336 DD/ TD/TT: Decorating Machine Operator: ANGELA [facility] External Provider IMG CT PROCEDURES Edited Result - Final * Lipid Panel with Reflex to Direct LDL (11/18/2023 8:40 AM EDT) Triglycerides 96 <150 mg/dL [facility] Comment:Desirable Triglyceri de: less than 150 mg/dLBorderline High Triglyceride 150-199 mg/dLHigh Triglyceride: 200-499 mg/dLVery High Triglyceride: greater than or equal to 5OO mg/dL Cholesterol 136 <200 mg/dL [facility] Comment:Desirable Cholestero l: less than 200 mg/dLBorderline High Cholesterol: 200-239 mg/dLHigh Cholesterol: greater than 239 mg/dL LDL Cholesterol Calculated 75 <100 mg/dL [facility] Comment:Desirable LDL: less than 100 mg/dLNear Optimal/Above Optimal LDL: 110- 129 mg/dLBorderline High LDL: 130-159 mg/dLHigh LDL: 160-189 mg/dLVery High LDL: greater than or equal to 190 mg/dL HDL Cholesterol 42 >40 mg/dL [facility] Comment:Desirable HDL: great er than 40 mg/dL Note: This HDL assay may give artificially low results in patients with liver disease. Blood 11/18/2023 8:40 AM EDT 11/18/2023 11:14 AM EDT us Bridgette Fagan MD LAB BLOOD ORDERABLES Final Resul t Performing Organization Address City/[place] [facility] Co de Phone Number [facility] [address] [place] [address] [phone] * Albumin, Random Urine W/Creatinine (11/18/2023 8:35 AM EDT) Creatinine, Urine 119.50 mg/dL [facility] Microalbumin Urine 12.0 mg/L [facility] Microalbum Creatinine Ratio Ur 10.0 <30 ug/mg cr [facility] Comment:Albumin/Creatinine R atio Reference Ranges: Normal: < 30 ug/mg creatinine Microalbuminuria: 30 - 300 ug/mg creatinineClinical Albuminuria: > 300 ug/mg creatinine Urine 11/18/2023 8:35 AM EDT 11/18/2023 11:38 AM EDT us Bridgette Fagan MD LAB URINE ORDERABLES Final Resul t Performing Organization Address City/[place] [facility] Co de Phone Number [facility] [address] [place] [phone] from Last 3 Months or Most Recently Relevant to Health Maintenance Insurance [facility] DUAL COM[facility]TE DENTAL - [facility] Care Teams Acid Maker Relationship Specialty Start Date End Date Bridgette Fagan MD [address] [place] [address] PCP - General Family Medicine 07/01/12 Ramón Bolaños, PharmD [address] [place] [address] Pharmacist Internal Medicine 11/18/23
--- OUTSIDE RECORDS SUMMARY | 2024-10-28 09:59 | XMS_ITS | Encounter Summary ---
Author Organization [employer] Address 75 [facility] 7t [place] [address] Care Team Providers Care Community Board Member Name Role Phone Bridgette Gandhi MD Primary Care Provider Ramón Bolaños PharmD Unavailable [phone] Encounter Details Date Type Department Care Team (Late st Contact Info) Description 09/22/2023 Orders Only [facility] MEDICINE [address] [place], [place] [phone] Bridgette Gandhi MD [address] [place], [place] [phone] Chronic obstructive pulmonary disease, unspecified COPD type [...] Visit [facility] MEDICINE [address] [place] [address] Bridgette Gandhi MD [address] [place] [address] 01/06/2025 10:00 AM EDT Office Visit [facility] ADULT DENTAL [address] [place] [address] Bubba Lydia [address] [place] [address] documented as of this encounter Visit Diagnoses Diagnosis Chronic obstructive pulmonary disease, unspecified COPD type ([facility])- Primary Obstructive sleep apnea syndrome Obstructive sleep apnea (adult) (pediatric) documented in this encounter Additional Health Concerns Assessment Noted Time PHQ-9 Depression Total Score: 5 09/11/19 23 10:25 AM EST documented as of this encounter Care Teams Community Board Member Relationship Specialty Start Date End Date Bridgette Gandhi MD [address] [place] [address] PCP - General Family Medicine 07/01/12 Ramón Bolaños, MollyD [address] [place] [address] Pharmacist Internal Medicine 11/18/23 documented as of this encounter
--- OUTSIDE RECORDS SUMMARY | 2024-10-28 09:59 | XMS_ITS | Encounter Summary ---
Author Organization [email or web address] Address 75 [facility] 7t [place] [address] Care Team Providers Care Title Investigator Name Role Phone Bridgette Gandhi MD Primary Care Provider [phone] Ramón Bolaños PharmD Unavailable [phone] Encounter Details Date Type Department Care Team (Late st Contact Info) Description 08/28/2023 Orders Only [facility] MEDICINE [address] [place], [place] [phone] Bridgette Gandhi MD [address] [place], [place] [phone] Social History Tobacco Use Types Packs/Day Years [...] Description 11/01/2024 10:30 AM EDT Office Visit [facility] MEDICINE [address] [place] [address] Bridgette Gandhi MD [address] [place] [address] 01/06/2025 10:00 AM EDT Office Visit [facility] ADULT DENTAL [address] [place] [address] Lydia Mac [address] [place] [address] documented as of this encounter Visit Diagnoses Not on filedocumented in this encounter Additional Health Concerns Assessment Noted Time PHQ-9 Depression Total Score: 5 09/11/19 23 10:25 AM EST documented as of this encounter Care Teams Title Investigator Relationship Specialty Start Date End Date Bridgette Gandhi MD [address] [place] [address] PCP - General Family Medicine 07/01/12 Ramón Bolaños, MollyD [address] [place] [address] Pharmacist Internal Medicine 11/18/23 documented as of this encounter
--- OUTSIDE RECORDS SUMMARY | 2024-10-28 09:59 | XMS_ITS | Encounter Summary ---
Author Organization [employer] [facility] Address 75 [facility] 7t [place] [address] Care Team Providers Care Filtrose Crusher Name Role Phone Bridgette Gandhi MD Primary Care Provider [phone] Ramón Bolaños PharmD Unavailable [phone] Reason for Referral * Consultation (Routine) - Closed Specialty Diagnoses / Procedures Referred By Jj bro Referred To Contact Orthopaedic Surgery Diagnoses Primary osteoarthritis of both hips Primary osteoarthritis of both knees Bridgette Gandhi MD [address] [place] [address] Phone: tel: fax: [facility] [address] [place] [address] Drive [address] [place], [place] Phone: tel: fax: Referral ID Status Reason Start Date Expiration Date V isits Requested Visits Authorized [id number] Closed Specialty Services Required 02/23/2024 02/22/2025 1 1 Encounter Details Date Type Department Care Team (Late st Contact Info) Description 02/23/2024 Orders Only [facility] MEDICINE [address] [place] [address] [phone] Bridgette Gandhi MD [address] [place], [place] [phone] Primary osteoarthritis of both hips (Primary Dx); [...] Description 11/01/2024 10:30 AM EDT Office Visit [facility] MEDICINE [address] [place] [address] Bridgette Gandhi MD [address] [place], [place] [phone] 01/06/2025 10:00 AM EDT Office Visit [facility] ADULT DENTAL [address] [place] [address] Lydia Mac [address] [place] [address] Scheduled Referrals Name Type Priority Associated Diagnoses [...] documented as of this encounter Care Teams Filtrose Crusher Relationship Specialty Start Date End Date Bridgette Gandhi MD [address] [place] [address] PCP - General Family Medicine 07/01/12 Ramón Bolaños PharmD [address] [place] [address] Pharmacist Internal Medicine 11/18/23 documented as of this encounter
--- OUTSIDE RECORDS SUMMARY | 2024-10-28 09:59 | XMS_ITS | Encounter Summary ---
Author Organization [employer] Address 75 [facility] 7t [place] [address] Care Team Providers Care Dental Equipment Installer And Servicer Name Role Phone Bridgette Gandhi MD Primary Care Provider [phone] Ramón Bolaños PharmD Unavailable [phone] Reason for Visit * Reason Onset Date Comments Medication Question 06/24/2024 Encounter Details Date Type Department Care Team (Late st Contact Info) Description 06/24/2024 Telephone [facility] MEDICINE [address] [place], [place] [phone] Bridgette Gandhi MD [address] [place], [place] [phone] Medication Question Social History Tobacco Use Types [...] broke. If any questions contact pt at [phone] documented in this encounter Plan of Treatment Upcoming Encounters Date Type Department Care Team (Late st Contact Info) Description 11/01/2024 10:30 AM EDT Office Visit [facility] MEDICINE [address] [place] [address] Bridgette Gandhi MD [address] [place] [address] 01/06/2025 10:00 AM EDT Office Visit [facility] ADULT DENTAL [address] [place] [address] Ldyia Mac [address] [place] [address] documented as of this encounter Goals Goal [...] documented as of this encounter Care Teams Dental Equipment Installer And Servicer Relationship Specialty Start Date End Date Bridgette Gandhi MD [address] [place] [address] PCP - General Family Medicine 07/01/12 Ramón Bolaños PharmD [address] [place] [address] Pharmacist Internal Medicine 11/18/23 documented as of this encounter
--- OUTSIDE RECORDS SUMMARY | 2024-10-28 09:59 | XMS_ITS | Encounter Summary ---
Author Organization [employer] [facility] Address [address] [place] [address] 7t [place] [address] Care Team Providers Care Hammer Mill Operator Name Role Phone Bridgette Gandhi MD Primary Care Provider [phone] Ramón Bolaños PharmD Unavailable [phone] Encounter Details Date Type Department Care Team (Late Contact Info) Description 04/30/2023 Abstract [facility] MEDICINE [address] [place] [address] [phone] Bridgette Gandhi MD [address] [place] [phone] Social History Tobacco Use Types Packs/Day Years [...] Office Visit [facility] MEDICINE [address] [place] [address] [phone] Bridgette Gandhi MD [address] [place] [address] 01/06/2025 10:00 AM EDT Office Visit [facility] ADULT DENTAL [address] [place] [address] Lydia Mac [address] [place] [address] documented as of this encounter Procedures Procedure [...] documented as of this encounter Care Teams Hammer Mill Operator Relationship Specialty Start Date End Date Bridgette Gandhi MD [address] [place], [place] [phone] PCP - General Family Medicine 07/01/12 Ramón Bolaños, MollyD [address] [place] [address] [phone] Pharmacist Internal Medicine 11/18/23 documented as of this encounter
--- OUTSIDE RECORDS SUMMARY | 2024-10-28 09:59 | XMS_ITS | Encounter Summary ---
Author Organization [employer] Address 75 [facility] 7t [place] [address] Care Team Providers Care Unbundler Name Role Phone Bridgette Gandhi MD Primary Care Provider [phone] Ramón Bolaños PharmD Unavailable Reason for Visit * Reason Onset Date Comments Referral 08/27/2023 Encounter Details Date Type Department Care Team (Late st Contact Info) Description 08/27/2023 Telephone [facility] MEDICINE [address] [place], [place] [phone] Bridgette Gandhi MD [address] [place], [place] [phone] Referral Social History Tobacco Use Types Packs/Day [...] 08/27/2023 1:13 PM EST TC from pt's daughter/SENIOR SALES OPERATIONS MANAGER requesting a renewal of Referral Date of original referral: 09/11/23 Location: [facility] (unsure of exact location) Date: 09/03/23 Time: 3:15 Fax: N/A Specialty: Orthopedic documented in this encounter Plan of Treatment Upcoming Encounters Date Type Department Care Team (Late st Contact Info) Description 11/01/2024 10:30 AM EDT Office Visit [facility] MEDICINE [address] [place] [address] Bridgette Gandhi MD [address] [place] [address] 01/06/2025 10:00 AM EDT Office Visit [facility] ADULT DENTAL [address] [place] [address] Bubba, Lydia [address] [place] [address] documented as of this encounter Visit Diagnoses Not on filedocumented in this encounter Additional Health Concerns Assessment Noted Time PHQ-9 Depression Total Score: 5 09/11/19 23 10:25 AM EST documented as of this encounter Care Teams Unbundler Relationship Specialty Start Date End Date Bridgette Gandhi MD [address] [place] [address] PCP - General Family Medicine 07/01/12 Ramón Bolaños, MollyD [address] [place] [address] [phone] Pharmacist Internal Medicine 11/18/23 documented as of this encounter
--- OUTSIDE RECORDS SUMMARY | 2024-10-28 09:59 | XMS_ITS | Clinical Summary ---
Demographics Address [address] [facility] [address] [place] [address] Mobile Phone Home Phone Mobile Phone Preferred Language es Marital Status Unknown Pentecostal Affiliation Unknown Race Unknown Ethnic Group Unknown Author Organization [facility] Address [address] [facility] [address] [address] [place] [address] Phone Care Team Providers Care Marketing Database Coordinator Name Role Phone Bridgette Gandhi MD Primary Care Provider [phone] Allergies Active Allergy Reactions Criticality Noted Date [...] Prostate specific antigen above reference range 01/27/2024 Social History Tobacco Use Types Packs/Day Years [...] Visit [facility] [address] [place] [phone] Gómez Colunga MD [address] [facility] [address] [place] [address] Health Maintenance Due Date Last Done Comments Diabetes: Ophthalmology Exam 09/17/2020 Diabetes: Pedal Pulse Checked 09/17/2020 Diabetes: Sensory Foot Exam 09/17/2020 Diabetes: Visual Foot Exam 09/17/2020 Influenza Vaccine (#1) 2024 0, 06/13/2019, 05/24/2018, Additional history exists Diabetes: Hemoglobin A1C 07/08/2024 024, 01/04/2024, 11/18/2023 Pneumococcal Vaccine: 65+ Years Completed 04/13/2015, 08/08/2013, 05/07/2006 Hepatitis B Vaccine Aged Out 09/28/2017, 06/29/2017, 03/24/2017 No longer eligible based on patient's age to complete this topic Insurance [facility] DUAL COMPLETE ([id number]) [facility] DUAL COMPLETE ([id number]) Care Teams Marketing Database Coordinator Relationship Specialty Start Date End Date Bridgette Gandhi MD [address] [place] [address] PCP - General 08/27/20
--- OUTSIDE RECORDS SUMMARY | 2024-10-28 09:59 | XMS_ITS | Encounter Summary ---
Author Organization [employer] [facility] Address [address] [facility] 7t [place] [address] Care Team Providers Care Jig And Fixture Maker Name Role Phone Bridgette Gandhi MD Primary Care Provider [phone] Ramón Bolaños PharmD Unavailable [phone] Reason for Visit * Reason Onset Date Comments ER Follow-up 05/26/2024 Nurse Triage 05/26/2024 Encounter Details Date Type Department Care Team (Late st Contact Info) Description 05/26/2024 Telephone [facility] MEDICINE [address] [place], [place] [phone] Bridgette Gandhi MD [address] [place] [address] ER Follow-up; Nurse Triage Social History Tobacco [...] Please assist with obtaining discharge summary for [facility] visit on 05/25/24 for provider review prior to upcoming appointment. Future Appointments Date Time Provider Department Center 05/27/2024 8:45 AM Jeremias Gong MD [facility] 01/11/2025 10:00 AM Susy Dixon PharmD [facility] * Telephone Encounter - Danii Hope RN [...] Center 05/27/2024 8:45 AM Jeremias Gong MD [facility] 01/11/2025 10:00 AM Susy Dixon PharmD MEDICINE [facility] Insurance verified as active per Real Time Eligibility in [place]gr[place]. Video visit offered and caller accepted Positive Triage Question: * Patient wants to be seen * All higher-acuity triage questions were negative Care Advice Discussed: * Continue Treatment * Reasons To Call Back - You become worse * Telephone Encounter - Russell Dumas - 05/26/2024 2:13 PM EDT Patient calling to report ED visit on : Date: 05/25/24 Hospital: [facility] Seen for: Severe hip and thigh [...] Office Visit [facility] MEDICINE [address] [place] [address] Bridgette Gandhi MD [address] [place] [address] 01/06/2025 10:00 AM EDT Office Visit [facility] ADULT DENTAL [address] [place] [address] Lydia Mac [address] [place] [address] documented as of this encounter Goals Goal [...] documented as of this encounter Care Teams Jig And Fixture Maker Relationship Specialty Start Date End Date Bridgette Gandhi MD [address] [place] [address] PCP - General Family Medicine 07/01/12 Ramón Bolaños PharmD [address] [place] [address] Pharmacist Internal Medicine 11/18/23 documented as of this encounter
--- OUTSIDE RECORDS SUMMARY | 2024-10-28 09:59 | XMS_ITS ---
Author Name Katja Lang NP Address [address] [place] [address] Phone [phone] [facility] Care Team Providers Care Doula Name Role Phone Katja Lang Unavailable [phone] Unavailable Unavailable Unavailable Unavailable Unavailable Unavailable Reason [...] 2022-03-10 No Data Available Deep Sea Nasal Stoddard 0.65 % Solution USE 1-2 SPRAYS IN [...] Active 2022-09-30 N/A Other problems related to [facility] facilities and other health care Active 2023-10-27 [...] (do not use for phone, instead use 46604-75) [facility]2022 Type 2 diabetes mellitus wit h diabetic neuropathy, unspecifiedHypertensive heart disease with heart failureHeart failure, unspecifiedMorbid (severe) obesity due to excess caloriesMajor depressive disorder, recurrent, mildChronic obstructive pulmonary disease, unspecifiedOther amnesiaUnspecified glaucomaBody mass index (bmi) 39.0-39.9, adult New patient,40-59min; chronic exacerbation, 2 stable chronic or 1 acute illness add add modifier 95 for video (do not use for phone, instead use 17857-92) [facility] New patient,40-59min; chronic exacerbation, 2 stable chronic or 1 acute illness add add modifier 95 for video (do not use for phone, instead use 96077-92) [facility] 10[place]20[place] New patient,40-59min; chronic exacerbation, 2 stable chronic or 1 acute illness add add modifier 95 for video (do not use for phone, instead use 76208-35) [facility] 10[place]/20[place] New patient,40-59min; chronic exacerbation, 2 stable chronic or 1 acute illness add add modifier 95 for video (do not use for phone, instead use 43470-42) [facility] 10[place]/20[place] New patient,40-59min; chronic exacerbation, 2 stable chronic or 1 acute illness add add modifier 95 for video (do not use for phone, instead use 90472-78) [facility] 10[place]/20[place] New patient,40-59min; chronic exacerbation, 2 stable chronic or 1 acute illness add add modifier 95 for video (do not use for phone, instead use 72853-15) [facility] 10[place]/2022 New patient,40-59min; chronic exacerbation, 2 stable chronic or 1 acute illness add add modifier 95 for video (do not use for phone, instead use 46026-07) [facility] 10/28/2022 New patient,40-59min; chronic exacerbation, 2 stable chronic or 1 acute illness add add modifier 95 for video (do not use for phone, instead use 82370-73) [facility] 10[place]/2022 No Data Available [facility] 10/29/2022 Type 2 diabetes mellitus wit h diabetic neuropathy, unspecifiedMorbid (severe) obesity due to excess caloriesMajor depressive disorder, recurrent, mildHeart failure, unspecifiedHypertensive heart disease with heart failureChronic obstructive pulmonary disease, unspecifiedOther amnesiaUnspecified glaucoma No Data Available [facility] 10/29/2022 No Data Available [facility] 10/29/2022 Estab. patient 30-39min; chronic exacerbation, 2 stable chronic or 1 acute illness add add modifier 95 for video, (do not use for phone, instead use 50077-50) [facility] 10/27/2023 Type 2 diabetes mellitus wit h [...] (do not use for phone, instead use 96259-37) [facility] 10[place]/2023 Estab. patient 30-39min; chronic exacerbation, 2 stable chronic or 1 acute illness add add modifier 95 for video, (do not use for phone, instead use 27585-66) [facility] 10[place]/2023 Estab. patient 30-39min; chronic exacerbation, 2 stable chronic or 1 acute illness add add modifier 95 for video, (do not use for phone, instead use 54679-87) [facility] 10/27/2023 Estab. patient 30-39min; chronic exacerbation, 2 stable chronic or 1 acute illness add add modifier 95 for video, (do not use for phone, instead use 56824-03) [facility] 10[place]/2023 Estab. patient 30-39min; chronic exacerbation, 2 stable chronic or 1 acute illness add add modifier 95 for video, (do not use for phone, instead use 76620-51) [facility] 10[place]/2023 Estab. patient 30-39min; chronic exacerbation, 2 stable chronic or 1 acute illness add add modifier 95 for video, (do not use for phone, instead use 42819-71) [facility] 10/27/2023 Estab. patient 30-39min; chronic exacerbation, 2 stable chronic or 1 acute illness add add modifier 95 for video, (do not use for phone, instead use 61373-96) [facility] 10/[place]/2023 Estab. patient 30-39min; chronic exacerbation, 2 stable chronic or 1 acute illness add add modifier 95 for video, (do not use for phone, instead use 47747-78) [facility] 10/27/2023 Estab. patient 30-39min; chronic exacerbation, 2 stable chronic or 1 acute illness add add modifier 95 for video, (do not use for phone, instead use 58323-19) [facility] Estab. patient 20-29min; 1 stable chronic or 2 minor; add add modifier 95 for video, modifier 93 for phone [facility] 05[place]/2024 Other chronic painOther prob lems related to medical facilities and other health care Estab. patient 20-29min; 1 stable chronic or 2 minor; add add modifier 95 for video, modifier 93 for phone [facility] 05/30/2024 Estab. patient 20-29min; 1 stable chronic or 2 minor; add add modifier 95 for video, modifier 93 for phone [facility] 05[place] Estab. patient 20-29min; 1 stable chronic or 2 minor; add add modifier 95 for video, modifier 93 for phone [facility] 05/30/2024 Estab. patient 20-29min; 1 stable chronic or 2 minor; add add modifier 95 for video, modifier 93 for phone [facility] 05/[place]/20[place] Estab. patient 20-29min; 1 stable chronic or 2 minor; add add modifier 95 for video, modifier 93 for phone [facility] 05/30/20[place] Estab. patient 20-29min; 1 stable chronic or 2 minor; add add modifier 95 for video, modifier 93 for phone [facility] 05/[place]/2024 No Data Available [facility] 07[place]2024 Hypertensive heart disease w ith heart failureHeart failure, unspecifiedSecondary hyperaldosteronismChronic obstructive pulmonary disease, unspecifiedUnspecified glaucomaOther problems related to medical facilities and other health careOther chronic pain No Data Available [facility]2024 No Data Available [facility] 07[place]2024 Vital Signs Date of Collection [...] Current Smoking Status Current every day smoker 2024-10-28 Sex Male History of Procedures Procedures Service Procedure code Service date Servicing provider Phone# New patient,40-59min; chronic exacerbation, 2 stable chronic or 1 acute illness add add modifier 95 for video (do not use for phone, instead use 67703-50) 97486 2022-10-28 No Data Available No Data Availa [...] No Data Nancy ilable No Data Available [id number] 2022-10-29 No Data Available No Data Available [...] (do not use for phone, instead use 96281-48) 12040 2023-10-27 No Data Available No Data Availa [...] 95 for video, modifier 93 for phone 35161 2024-05-30 No Data Available No Data Availa [...] le No Data Available No Data Available [id number] 2024-07-25 No Data Available No Data Available [...] Patient Education to avoid future hospitalization[facility].Chronic painOther problems [...] persistent NOLEN< blurry vision)10/27/2023:Follows up with PCP, Weight Control Engineer, last visit 2 weeks ago.BP: 119/68. Reported [...] ophthalmology every 3-6 months 10/27/2023:Follows up with [facility].Continues using: Latanoprost drops.Denies any acute complaint.Reports chronic [...] (no modifier 95)Pain Assessment - Pain Documented (3902F)Continue to see PCP. Follow-up with [facility] as needed for any acute or disease education needs that may arise 09/03.StableLisinopril, Furosemide Avg BP: 120s/60sContinue taking medications as prescribed, continue monitoring BP, discussed low salt diet, exercise as tolerable, and lifestyle interventions. Contact us if developing emergent HTN s/sx (eg. palpitations, persistent NOLEN< blurry vision)07/25/2024:Follows up with PCP, Weight Control Engineer, last visit 2 weeks ago.Taking: amLODIPine Besylate [...] ophthalmology every 3-6 months 07/25/2024:Follows up with [facility].Continues using: Latanoprost drops.Denies any acute complaint.PAIN CONTINGENCY [...] likely not be covered by health plan. [facility] cc info sent to member and TELEPHONY ENGINEER. Advised to f/u with recliner request during [...]
--- OUTSIDE RECORDS SUMMARY | 2024-10-28 09:59 | XMS_ITS | Encounter Summary ---
Author Organization [employer] Address [address] [place] [address] Care Team Providers Care Products Mechanical Design Engineer Name Role Phone Bridgette Gandhi MD Primary Care Provider [phone] Ramón Bolaños PharmD Unavailable [phone] Encounter Details Date Type Department Care Team (Late st Contact Info) Description 08/22/2024 Abstract [facility] MEDICINE [address] [place], [place] [phone] [place] L[place] Social History Tobacco Use [...] 11/01/2024 10:30 AM EDT Office Visit [facility] MEDICINE [address] [place] [address] Bridgette Gandhi MD [address] [place] [address] 01/06/2025 10:00 AM EDT Office Visit [facility] ADULT DENTAL [address] [place] [address] Bubba, Lydia [address] [place] [address] documented as of this encounter Goals Goal [...] documented as of this encounter Care Teams Products Mechanical Design Engineer Relationship Specialty Start Date End Date Bridgette Gandhi MD [address] [place] [address] PCP - General Family Medicine 07/01/12 Ramón Bolaños, Bradley [address] [place] [address] Pharmacist Internal Medicine 11/18/23 documented as of this encounter
--- OUTSIDE RECORDS SUMMARY | 2024-10-28 09:59 | XMS_ITS | Encounter Summary ---
Demographics Address [address] [place] [address] Mobile Phone Home Phone Work Phone Preferred Language es Marital Status Nondenominational Affiliation Unknown Race Other Race Ethnic Group or Author Organization [employer] Address [address]t [place] [address] Care Team Providers Care Scutcher Tender Name Role Phone Bridgette Gandhi MD Primary Care Provider [phone] Ramón Bolaños PharmD Unavailable [phone] Reason for Visit * Reason Comments Consult root canal Encounter Details Date Type Department Care Team (Late st Contact Info) Description 10/17/2024 1:00 PM EST Office Visit [facility] ADULT DENTAL [address] [place], [place] [phone] Zoe Byron [address] [place], [place] [phone] Social History Tobacco Use Types Packs/Day Years [...] the past 12 months, has t he [employer], gas, oil or water company threatened to [...] y.o. male. Time Out: Date: 10/17/2024 Location: [facility] Tooth: #32 Procedure: Exam Verified the above with patient, cosmetic sales assistant, and provider. Confirmed via patient's chart, intraorally and by radiographs. Manufacturing Engineer Chief: not applicable 79 y.o. y/o male presents [...] [place]: EXT Provider: Dr. Byron Enriquez Dental Medical Staff Credentialing Coordinator: Delicia Gonzales Attending: Dr. Morrow * Max Morrow DMD - 10/17/2024 1:00 PM EST Reviewed. Max Morrow DMD documented in this encounter Plan of Treatment Upcoming Encounters Date Type Department Care Team (Late st Contact Info) Description 11/01/2024 10:30 AM EDT Office Visit [facility] MEDICINE [address] [place] [address] Bridgette Gandhi MD [address] [place] [address] 01/06/2025 10:00 AM EDT Office Visit [facility] ADULT DENTAL [address] [place] [address] Lydia Mac [address] [place] [address] documented as of this encounter Goals Goal [...] documented as of this encounter Care Teams Scutcher Tender Relationship Specialty Start Date End Date Bridgette Gandhi MD [address] [place] [address] PCP - General Family Medicine 07/01/12 Ramón Bolaños, MollyD [address] [place] [address] Pharmacist Internal Medicine 11/18/23 documented as of this encounter
--- OUTSIDE RECORDS SUMMARY | 2024-10-28 09:59 | XMS_ITS | Encounter Summary ---
Author Organization [employer] Address [address] 7t [place] [address] Care Team Providers Care Rigger Helper Name Role Phone Bridgette Gandhi MD Primary Care Provider [phone] aRmón Bolaños PharmD Unavailable [phone] Reason for Visit * Reason Comments Med Refill Encounter Details Date Type Department Care Team (Late st Contact Info) Description 06/07/2023 Refill [facility] [address] [place], [place] [phone] Bridgette Gandhi MD [address] [place], [place] [phone] Social History Tobacco Use Types Packs/Day Years [...] Visit [facility] MEDICINE [address] [place] [address] Bridgette Gandhi MD [address] [place] [address] 01/06/2025 10:00 AM EDT Office Visit [facility] ADULT DENTAL [address] [place] [address] BubbaGregLydia [address] [place] [address] documented as of this encounter Visit Diagnoses Not on filedocumented in this encounter Additional Health Concerns Assessment Noted Time PHQ-9 Depression Total Score: 5 09/11/19 23 10:25 AM EST documented as of this encounter Care Teams Rigger Helper Relationship Specialty Start Date End Date Bridgette Gandhi MD [address] [place] [address] PCP - General Family Medicine 07/01/12 Ramón Bolaños, PharmD [address] [place] [address] Pharmacist Internal Medicine 11/18/23 documented as of this encounter
--- OUTSIDE RECORDS SUMMARY | 2024-10-28 09:59 | XMS_ITS | Encounter Summary ---
Author Organization [employer] Address [address] [facility] 7t [place] [address] Care Team Providers Care Tibco Developer Name Role Phone Bridgette Gandhi MD Primary Care Provider Ramón Bolaños PharmD Unavailable [phone] Encounter Details Date Type Department Care Team (Late st Contact Info) Description 06/24/2024 Orders Only [facility] MEDICINE [address] [place], [place] [phone] Bridgette Gandhi MD [address] [place], [place] [phone] Social History Tobacco Use Types Packs/Day Years [...] Description 11/01/2024 10:30 AM EDT Office Visit [facility] MEDICINE [address] [place] [address] Bridgette Gandhi MD [address] [place] [address] 01/06/2025 10:00 AM EDT Office Visit [facility] ADULT DENTAL [address] [place] [address] Lydia Mac [address] [place] [address] documented as of this encounter Goals Goal Patient Goal Type Associated Problems Recent Progress Patient-Stated? Author Blood Pressure < 140/90 Blood Pressure 130/60(2024 10:46 AM EST) No aRmón Bolaños PharmD Hemoglobin A1c < 7 Result Component 7(08/04/2024 11:32 AM EST) No Ramón Bolaños PharmD documented as of this encounter Visit Diagnoses Not on filedocumented in this encounter Additional Health Concerns Assessment Noted Time PHQ-9 Depression Total Score: 0 04/07/20 24 11:45 AM EDT documented as of this encounter Care Teams Tibco Developer Relationship Specialty Start Date End Date Bridgette Gandhi MD [address] [place] [address] PCP - General Family Medicine 07/01/12 Ramón Bolaños, MollyD [address] [place] [address] Pharmacist Internal Medicine 11/18/23 documented as of this encounter
--- OUTSIDE RECORDS SUMMARY | 2024-10-28 09:59 | XMS_ITS | Encounter Summary ---
Author Organization [employer] Address [address] 7[address] [place] [address] Care Team Providers Care Upholstery Cleaner Name Role Phone Bridgette Gandhi MD Primary Care Provider Ramón Bolaños PharmD Unavailable Encounter Details Date Type Department Care Team (Late st Contact Info) Description 09/04/2023 Orders Only [facility] MEDICINE [address] [place], [place] [phone] Bridgette Gandhi MD [address] [place], [place] [phone] Chronic pain of both knees (Primary Dx) [...] [facility] [address] [place] [address] Bridgette Gandhi MD [address] [place] [address] 01/06/2025 10:00 AM EDT Office Visit [facility] ADULT DENTAL [address] [place] [address] Bubba, Lydia [address] [place] [address] documented as of this encounter Visit Diagnoses Diagnosis Chronic pain of both knees- Primary documented in this encounter Additional Health Concerns Assessment Noted Time PHQ-9 Depression Total Score: 5 09/11/19 23 10:25 AM EST documented as of this encounter Care Teams Upholstery Cleaner Relationship Specialty Start Date End Date Bridgette Gandhi MD [address] [place] [address] PCP - General Family Medicine 07/01/12 Ramón Bolaños, MollyD [address] [place] [address] Pharmacist Internal Medicine 11/18/23 documented as of this encounter
[2024-10-28 11:51] LABS: Alanine Aminotransferase 31 U/L (0-40); Alkaline Phosphatase 91 U/L (39-117); Anion Gap 12 (12-20); Aspartate Amino Transferase 34 U/L (5-37); Bilirubin Total 0.6 mg/dL (0.0-1.0); Blood Urea Nitrogen 17 mg/dL (9-16); Calcium 9.3 mg/dL (8.4-10.2); Carbon Dioxide 31 mmol/L (22-29); Chloride 103 mmol/L (96-108); Cholesterol 126 mg/dL (<200); Estimated Glomerular Filt Rate > 60; Glucose Random 138 mg/dL (60-115); HDL Cholesterol 43 mg/dL (>40); LDL Cholesterol Calculated 58 mg/dL (<100); Potassium 3.9 mmol/L (3.3-5.1); Sodium 142 mmol/L (135-145); Total Protein 7.4 g/dL (6.5-8.0); Triglycerides 125 mg/dL (<150)
[2024-10-28 12:23] LABS: Creatinine Urine 247.97 mg/dL; Microalbum/Creatinine Ratio Ur 58.4 ug/mg cr (<30)
[2024-10-28 12:27] LABS: Folate 10.8 ng/mL (> or = 4.0); Vitamin B12 253 pg/mL (200-900)
[2024-10-28 13:28] LABS: Reflex LDLD? No
== END 2024-10-28 09:14 | disposition home or self-care (01) ==
LOC: HO.HHCL 09:13
PROVIDERS: Visit Provider Family Medicine
DX: E11.9 Type 2 diabetes mellitus without complications (principal)
CPT/HCPCS: 36415; 80053; 80061; 82043; 82570; 82607; 82746

== ENCOUNTER 2025-01-02 11:12 | Outpatient (AMB) | payer OTHER, SELFPAY ==
--- NOTE | 2025-01-02 11:15 | MHC.OFFVIS ---
Intake Visit Reasons: 3 1/2 month follow up Intake Note: Patient is present for 3 1/2 month follow up Urology Medication:None Antibiotic Allergy:Penicillin Blood Thinner:None PVR: 0ml Laundry Assistant Required: Yes Laundry Assistant Language: Account Executive Trainee Name: jn Vasques Information Interpreted: non-clinical & clinical Allergies Penicillins Allergy (Intermediate, Verified 01/02/25 11:18) RASH Carbapenems Allergy (Unknown, Verified 01/02/25 11:18) Unknown Cephalosporins Allergy (Unknown, Verified 01/02/25 11:18) Unknown enviormental Allergy (Severe, Uncoded 09/26/24 13:07) coughing and sneezing Medication List - Last Reconciled 01/02/25 by Kishore Ayala MD albuterol sulfate 90 mcg/actuation 2 puffs inhalation Q4-6H PRN atorvastatin 40 mg PO BEDTIME blood sugar diagnostic (DashThisTouch Ultra Test strips) As directed cholecalciferol (vitamin D3) 25 mcg PO QAM doxazosin 8 mg PO BEDTIME finasteride 5 mg PO DAILY fluticasone propionate 50 mcg/actuation 1 - 2 sprays intranasal QAM hydralazine 50 mg PO BID lancets As directed latanoprost 0.005% 1 drp ophthalmic (eye) QPM lisinopril 40 mg PO DAILY@1200 loratadine (Allergy Relief (loratadine)) 10 mg PO DAILY metformin ER 500 mg PO QPM sertraline 25 mg PO QAM torsemide 20 mg PO QAM 30 days umeclidinium-vilanterol 62.5-25 mcg/actuation (Anoro Ellipta) 1 inh inhalation DAILY 30 days HPI Comments Details: 01/02/25--Ty now is here with his daughter he is doing well as far as urination he does have complaints of chronic back pain urinalysis is negative for blood or leukocytes bladder scan PVR 0 mL we will continue Proscar follow-up in 4 months with PSA at that time 09/26/24--s/p TURP, bladder stone cystolitholipaxy on 09/13/24-- pt here with his daughter, denies significant urge, states voiding well, denies dysuria. Path: Prostate, transurethral resection:- Nodular prostatic stromal hyperplasia (BPH). Bladder stone- Calculous material. PFSH Medical History Spondylosis of lumbar region without myelopathy or radiculopathy Low back pain HTN (hypertension) Arthritis History of back pain History of fatty infiltration of liver Seasonal allergies Elevated cholesterol Asthma Anxiety Depression Diabetes mellitus History of COVID-19 Allergic rhinitis SHANON (obstructive sleep apnea) Obesity Smoker Surgical History Hx of ventral hernia repair Hx of colonoscopy History of left cataract extraction History of cystoscopy Hx of umbilical hernia repair Family History Mother No problems noted. Father No problems noted. Brother CAD (coronary artery disease) Sister Alzheimer disease Social History Household Members: Other Household Members Other:: 2 roomates Housing: Apartment Are you a primary women's health care nurse practitioner to a significant other at home: No Do you presently have visiting nurse or other home services: Yes Alcohol intake: never Patient Tobacco Use Status: Former Tobacco user Cigarette Packs Per Day: 0.5 Cigarettes Per Day: 10.0 Years Smoked: 60 +/- , quit- Oct 12 2023 Office Procedures Post Void Residual Post Residual Void Post Void Residual (PVR): 0 18494-[id number] Void Residual by ultrasound Results AMB Urinalysis, Automated UA Leukoctes 0 Isaias/uL Last Edit by Aisha Girard on 01/02/25 14:56 UA Nitrite Negative Last Edit by Aisha Girard on 01/02/25 14:56 UA Urobilinogen 3.5 mg/dL Last Edit by Aisha Girard on 01/02/25 14:56 UA Protein 0 mg/dL Last Edit by Aisha Girard on 01/02/25 14:56 UA pH 5.5 Last Edit by Aisha Girard on 01/02/25 14:56 UA Blood 0 Jhon/uL Last Edit by Aisha Girard on 01/02/25 14:56 UA Specific [place] 1.015 Last Edit by Aisha Girard on 01/02/25 14:56 UA Ketone Negative Last Edit by Aisha Girard on 01/02/25 14:56 UA Bilirubin 0 mg/dL Last Edit by Aisha Girard on 01/02/25 14:56 UA Glucose 0 mg/dL Last Edit by Aisha Girard on 01/02/25 14:56 Results Reviewed Results Reviewed: Laboratory Last Values Urine pH (Auto) 5.5 01/02/25 14:38 Specific [place] (Auto) 1.015 01/02/25 14:38 Urine Protein (Auto) 0 mg/dL 01/02/25 14:38 Glucose (UA)(Auto) 0 mg/dL 01/02/25 14:38 Urine Ketones (Auto) Negative 01/02/25 14:38 Urine Blood (Auto) 0 Jhon/uL 01/02/25 14:38 Urine Nitrite (Auto) Negative 01/02/25 14:38 Urine Bilirubin (Auto) 0 mg/dL 01/02/25 14:38 Urine Urobilinogen (Auto) 3.5 mg/dL 01/02/25 14:38 Leukocyte Esterase (Auto) 0 Isaias/uL 01/02/25 14:38 Assessment & Plan Assessment & Plan (1) Screening PSA (prostate specific antigen): Code(s): Z12.5 - Encounter for screening for malignant neoplasm of prostate Category: Medical Orders: Orders PSA,Total (Free>4and<10) 3 Months Z12.5 - Encounter for screening for malignant neoplasm of prostate AMB Urinalysis Automated Today Z13.9 - Encounter for screening, unspecified Medications: New finasteride 5 mg PO DAILY 90 tabs 3RF Coding Diagnoses Screening PSA (prostate specific antigen) Z12.5 CPT Codes Post Residual Void - PVR CPT Code: 59788-Gyoc Void Residual by ultrasound ([id number])
--- OUTSIDE RECORDS SUMMARY | 2025-01-02 11:55 | XMS_ITS | Encounter Summary ---
Author Organization [employer] Address [address] [facility] 7t [place] [address] Care Team Providers Care Dictating Machine Mechanic Name Role Phone Bridgette Gandhi MD Primary Care Provider [phone] Ramón Bolaños PharmD Unavailable [phone] Reason for Visit * Reason Onset Date Comments Referral 08/27/2023 Encounter Details Date Type Department Care Team (Late st Contact Info) Description 08/27/2023 Telephone [facility] MEDICINE [address] [place], [place] [phone] Bridgette Gandhi MD [address] [place], [place] [phone] Referral Social History Tobacco Use Types Packs/Day [...] 1:13 PM EST TC from pt's daughter/SENIOR BI ARCHITECT requesting a renewal of Referral Date of original referral: 09/11/23 Location: [facility] (unsure of exact location) Date: 09/03/23 Time: 3:15 Fax: N/A Specialty: Orthopedic documented in this encounter Plan of Treatment Upcoming Encounters Date Type Department Care Team (Late st Contact Info) Description 01/06/2025 10:00 AM EDT Office Visit [facility] ADULT DENTAL [address] [place] [address] Greg Macaris [address] [place] [address] 01/31/2025 11:15 AM EDT Office Visit [facility] MEDICINE [address] [place] [address] Bridgette Gandhi MD [address] [place] [address] documented as of this encounter Visit Diagnoses Not on filedocumented in this encounter Additional Health Concerns Assessment Noted Time PHQ-9 Depression Total Score: 5 09/11/19 23 10:25 AM EST documented as of this encounter Care Teams Dictating Machine Mechanic Relationship Specialty Start Date End Date Bridgette Gandhi MD [address] [place] [address] PCP - General Family Medicine 07/01/12 Ramón Bolaños, MollyD [address] [place] [address] Pharmacist Internal Medicine 11/18/23 documented as of this encounter
--- OUTSIDE RECORDS SUMMARY | 2025-01-02 11:55 | XMS_ITS | Encounter Summary ---
Author Organization [employer] Address [address] [facility] 7t [place] [address] Care Team Providers Care Farm Equipment Engine Mechanic Name Role Phone Bridgette Gandhi MD Primary Care Provider [phone] Ramón Bolaños PharmD Unavailable [phone] Reason for Referral * Consultation (Routine) - Closed Specialty Diagnoses / Procedures Referred By Contac t Referred To Contact Orthopaedic Surgery Diagnoses Primary osteoarthritis of both hips Primary osteoarthritis of both knees Bridgette Gandhi MD [address] [place] [address] Phone: tel: fax: [facility] [address] [place] [address] Drive [address] [place], [place] Phone: tel: fax: Referral ID Status Reason Start Date Expiration Date V isits Requested Visits Authorized [id number] Closed Specialty Services Required 02/23/2024 02/22/2025 1 1 Encounter Details Date Type Department Care Team (Late st Contact Info) Description 02/23/2024 Orders Only [facility] MEDICINE [address] [place] [phone] Bridgette Gandhi MD [address] [place] [address] Primary osteoarthritis of both hips (Primary Dx); [...] Description 01/06/2025 10:00 AM EDT Office Visit [facility] ADULT DENTAL [address] [place] [address] Lydia Mac [address] [place] [address] 01/31/2025 11:15 AM EDT Office Visit [facility] MEDICINE [address] [place] [address] Bridgette Gandhi MD [address] [place] [address] Scheduled Referrals Name Type Priority Associated Diagnoses Orde r Schedule Referral to Orthopaedic Surgery Outpatient Referral Routine Primary osteoarthritis of both hips Primary osteoarthritis of both knees Expected: 02/23/2024 (Approximate), Expires: 02/22/2025 documented as of this encounter Goals Goal Patient Goal Type Associated Problems Recent Progress Patient-Stated? Author Blood Pressure < 140/90 Blood Pressure 148/75(2024 11:40 AM EDT) No Ramón Bolaños PharmD Hemoglobin A1c < 7 Result Component 6.7( 10:23 AM EDT) No Ramón Bolaños PharmD documented as of this encounter Visit Diagnoses Diagnosis Primary osteoarthritis of both hips- Primary Primary osteoarthritis of both knees Primary osteoarthritis involving multiple joints documented in this encounter Additional Health Concerns Assessment Noted Time PHQ-9 Depression Total Score: 7 11/04/19 10:54 AM EDT documented as of this encounter Care Teams Farm Equipment Engine Mechanic Relationship Specialty Start Date End Date Bridgette Gandhi MD [address] [place] [address] PCP - General Family Medicine 07/01/12 Ramón Bolaños PharmD [address] [place] [address] Pharmacist Internal Medicine 11/18/23 documented as of this encounter
--- OUTSIDE RECORDS SUMMARY | 2025-01-02 11:55 | XMS_ITS | Clinical Summary ---
Demographics Address [address] [place] [address] Mobile Phone Home Phone Mobile Phone Preferred Language es Marital Status Unknown Taoism Affiliation Unknown Race Unknown Ethnic Group Unknown Author Organization [facility] Address [address] [place] [address] Phone Care Team Providers Care Project Management Professional Name Role Phone Bridgette Gandhi MD Primary Care Provider [phone] Allergies Active Allergy Reactions Criticality Noted Date [...] Care Team (Late st Contact Info) Description 01/26/2025 Orders Only [facility] [address] [place] [address] Gómez Colunga MD [address] [address] Hypertension; Type 2 diabetes mellitus without complication (HCC) 02/02/2025 1:00 PM EDT Office Visit [facility] [address] [place] [address] Gómez Colunga MD [address] [address] Health Maintenance Due Date Last Done Comments Diabetes: Ophthalmology Exam 09/17/2020 Diabetes: Pedal Pulse Checked 09/17/2020 Diabetes: Sensory Foot Exam 09/17/2020 Diabetes: Visual Foot Exam 09/17/2020 Diabetes: Hemoglobin A1C 02/01/202511/01/2 025, 04/07/2024, 01/04/2024, Additional history exists Influenza Vaccine (Season Ended) 2025 05/02/2020, 06/13/2019, 05/24/2018, Additional history exists Pneumococcal Vaccine: 50+ Years Completed 04/13/2015, 08/08/2013, 05/07/2006 Pneumococcal Vaccine: Peds (0 to 5 Years) and At-Risk Patients (6 to 49 Years) Discontinued 04/13/2015, 08/08/2013, 05/07/2006 Hepatitis B Vaccine Aged Out 09/28/2017, 06/29/2017, 03/24/2017 No longer eligible based on patient's age to complete this topic Insurance [facility] ([id number]) [facility] ([id number]) Care Teams Project Management Professional Relationship Specialty Start Date End Date Bridgette Gandhi MD [address] [place] [address] PCP - General 08/27/20
--- OUTSIDE RECORDS SUMMARY | 2025-01-02 11:55 | XMS_ITS | Encounter Summary ---
Author Organization [employer] Address [address] [place] [address] 7t [place] [address] Care Team Providers Care Manager Regulatory Name Role Phone Bridgette Gandhi MD Primary Care Provider [phone] Ramón Bolaños PharmD Unavailable Encounter Details Date Type Department Care Team (Late st Contact Info) Description 07/31/2022 Abstract [facility] ADULT DENTAL [address] [place] [address] yLdia Mac [address] [place] [address] Social History Tobacco Use Types Packs/Day Years [...] Description 01/06/2025 10:00 AM EDT Office Visit [facility] ADULT DENTAL [address] [place] [address] Bubba Lydia [address] [place] [address] 01/31/2025 11:15 AM EDT Office Visit [facility] MED[facility] [address] [place] [address] Bridgette Gandhi MD [address] [place], [place] [phone] documented as of this encounter Visit Diagnoses Not on filedocumented in this encounter Care Teams Manager Regulatory Relationship Specialty Start Date End Date Bridgette Gandhi MD [address] [place] [address] PCP - General Family Medicine 07/01/12 Ramón Bolaños, Bradley [address] [place] [address] Pharmacist Internal Medicine 11/18/23 documented as of this encounter
--- OUTSIDE RECORDS SUMMARY | 2025-01-02 11:55 | XMS_ITS | Encounter Summary ---
Author Organization [employer] Address [address] [facility] 7t [place] [address] Care Team Providers Care Economic Research Analyst Name Role Phone Bridgette Gandhi MD Primary Care Provider [phone] Ramón Bolaños PharmD Unavailable [phone] Encounter Details Date Type Department Care Team (Late st Contact Info) Description 06/24/2024 Orders Only [facility] MED[facility]INE [address] [place], [place] [phone] Bridgette Gandhi MD [address] [place], [place] [phone] Social History Tobacco Use Types Packs/Day Years [...] Description 01/06/2025 10:00 AM EDT Office Visit [facility] ADULT DENTAL [address] [place] [address] Bubba, Lydia [address] [place] [address] 01/31/2025 11:15 AM EDT Office Visit [facility] MED[facility]INE [address] [place] [address] Bridgette Gandhi MD [address] [place] [address] documented as of this encounter Goals Goal [...] documented as of this encounter Care Teams Economic Research Analyst Relationship Specialty Start Date End Date Bridgette Gandhi MD [address] [place] [address] PCP - General Family Medicine 07/01/12 Ramón Bolaños, Bradley [address] [place] [address] Pharmacist Internal Medicine 11/18/23 documented as of this encounter
--- OUTSIDE RECORDS SUMMARY | 2025-01-02 11:55 | XMS_ITS | Encounter Summary ---
Author Organization [employer] Address [address] [facility] 7t [place] [address] Care Team Providers Care Lock Assembler Name Role Phone Bridgette Gandhi MD Primary Care Provider [phone] Ramón Bolaños PharmD Unavailable [phone] Reason for Visit * Reason Comments Med Refill Encounter Details Date Type Department Care Team (Late Contact Info) Description 10/22/2022 Refill [facility] MED[facility] [address] [place] [address] Tamela Drake MD [address] [place] [address] Dyslipidemia (Primary Dx) Social History Tobacco Use [...] Department Care Team (Late Contact Info) Description 01/06/2025 10:00 AM EDT Office Visit [facility] ADULT DENTAL [address] [place] [address] Lydia Mac [address] [place] [address] 01/31/2025 11:15 AM EDT Office Visit [facility] MED[facility]INE [address] [place] [address] Bridgette Gandhi MD [address] [place] [address] documented as of this encounter Visit Diagnoses Diagnosis Dyslipidemia- Primary Other and unspecified hyperlipidemia documented in this encounter Additional Health Concerns Assessment Noted Time PHQ-9 Depression Total Score: 5 09/11/19 23 10:25 AM EST documented as of this encounter Care Teams Lock Assembler Relationship Specialty Start Date End Date Bridgette Gandhi MD [address] [place] [address] PCP - General Family Medicine 07/01/12 Ramón Bolaños, MollyD [address] [place] [address] Pharmacist Internal Medicine 11/18/23 documented as of this encounter
--- OUTSIDE RECORDS SUMMARY | 2025-01-02 11:55 | XMS_ITS | Encounter Summary ---
Author Organization [employer] [facility] Address [address] [place] [address] 7t [place] [address] Care Team Providers Care Radioactivity Technician Name Role Phone Bridgette Gandhi MD Primary Care Provider [phone] Ramón Bolañso PharmD Unavailable Encounter Details Date Type Department Care Team (Latest Contact Info) Description 06/20/2022 Abstract [facility] CONVERSIONS Dental, Provider, DDS Social History [...] Description 01/06/2025 10:00 AM EDT Office Visit [facility] ADULT DENTAL [address] [place] [address] Bubba Lydia [address] [place] [address] 01/31/2025 11:15 AM EDT Office Visit [facility] MEDICINE [address] [place] [address] Bridgette Gandhi MD [address] [place] [address] documented as of this encounter Visit Diagnoses Not on filedocumented in this encounter Care Teams Radioactivity Technician Relationship Specialty Start Date End Date Bridgette Gandhi MD [address] [place] [address] PCP - General Family Medicine 07/01/12 Ramón Bolaños, MollyD [address] [place] [address] Pharmacist Internal Medicine 11/18/23 documented as of this encounter
--- OUTSIDE RECORDS SUMMARY | 2025-01-02 11:55 | XMS_ITS | Encounter Summary ---
Author Organization [employer] Address [address] [facility] [address] 7t [place] [address] Care Team Providers Care Welcome Desk Agent Name Role Phone Bridgette Gandhi MD Primary Care Provider Ramón Bolaños PharmD Unavailable [phone] Encounter Details Date Type Department Care Team (Late st Contact Info) Description 08/22/2024 Abstract [facility] MEDICINE [address] [place], [place] [phone] [place] Social History Tobacco Use [...] Description 01/06/2025 10:00 AM EDT Office Visit [facility] ADULT DENTAL [address] [place] [address] Bubba, Lydia [address] [place] [address] 01/31/2025 11:15 AM EDT Office Visit [facility] MEDICINE [address] [place] [address] Bridgette Gandhi MD [address] [place] [address] documented as of this encounter Goals Goal Patient Goal Type Associated Problems Recent Progress Patient-Stated? Author Blood Pressure < 140/90 Blood Pressure 148/75(2024 11:40 AM EDT) No Ramón Bolaños, PharmJameson Hemoglobin A1c < 7 Result Component 6.7( [...] documented as of this encounter Care Teams Welcome Desk Agent Relationship Specialty Start Date End Date Bridgette Gandhi MD [address] [place] [address] PCP - General Family Medicine 07/01/12 Ramón Bolaños, MollyD [address] [place] [address] Pharmacist Internal Medicine 11/18/23 documented as of this encounter
--- OUTSIDE RECORDS SUMMARY | 2025-01-02 11:55 | XMS_ITS | Encounter Summary ---
Author Organization [employer] Address [address] [facility] 7t [place] [address] Care Team Providers Care Dining Chair Seat Cushion Trimmer Name Role Phone Bridgette Gandhi MD Primary Care Provider [phone] Ramón Bolaños PharmD Unavailable [phone] Reason for Visit * Reason Comments Med Refill Encounter Details Date Type Department Care Team (Late st Contact Info) Description 03/10/2024 Refill [facility] MEDICINE [address] [place], [place] [phone] Bridgette Gandhi MD [address] [place], [place] [phone] Social History Tobacco Use Types Packs/Day Years [...] the past 12 months, has t he [employer], gas, oil or water company threatened to [...] Description 01/06/2025 10:00 AM EDT Office Visit [facility] ADULT DENTAL [address] [place] [address] Bubba, Lydia [address] [place] [address] 01/31/2025 11:15 AM EDT Office Visit [facility] MEDICINE [address] [place] [address] Bridgette Gandhi MD [address] [place] [address] documented as of this encounter Goals Goal [...] documented as of this encounter Care Teams Dining Chair Seat Cushion Trimmer Relationship Specialty Start Date End Date Bridgette Gandhi MD [address] [place] [address] PCP - General Family Medicine 07/01/12 Ramón Bolaños PharmD [address] [place] [address] Pharmacist Internal Medicine 11/18/23 documented as of this encounter
--- OUTSIDE RECORDS SUMMARY | 2025-01-02 11:55 | XMS_ITS | Encounter Summary ---
Author Organization [employer] Address [address] [facility] 7t [place] [address] Care Team Providers Care Publication Manager Name Role Phone Bridgette Gandhi MD Primary Care Provider [phone] Ramón Bolaños PharmD Unavailable [phone] Reason for Visit * Reason Onset Date Comments Medication Question 06/24/2024 Encounter Details Date Type Department Care Team ([facility] st Contact Info) Description 06/24/2024 Telephone [facility] MEDICINE [address] [place], [place] [phone] Bridgette Gandhi MD [address] [place], [place] [phone] Medication Question Social History Tobacco Use Types [...] the past 12 months, has t he [employer], gas, oil or water company threatened to [...] broke. If any questions contact pt at [phone] documented in this encounter Plan of Treatment Upcoming Encounters Date Type Department Care Team (Late st Contact Info) Description 01/06/2025 10:00 AM EDT Office Visit [facility] ADULT DENTAL [address] [place], [place] [phone] Greg Macaris [address] [place] [address] 01/31/2025 11:15 AM EDT Office Visit [facility] MED[facility]INE [address] [place] [address] Bridgette Gandhi MD [address] [place] [address] documented as of this encounter Goals Goal [...] documented as of this encounter Care Teams Publication Manager Relationship Specialty Start Date End Date Bridgette Gandhi MD [address] [place] [address] PCP - General Family Medicine 07/01/12 Ramón Bolaños PharmD [address] [place] [address] Pharmacist Internal Medicine 11/18/23 documented as of this encounter
--- OUTSIDE RECORDS SUMMARY | 2025-01-02 11:55 | XMS_ITS | Clinical Summary ---
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 10/28/19 24 Active Anoro Ellipta 62.5-25 MCG/ACT aerosol powder Inhale 1 puff in the morning. 10/28/19 24 Active magnesium oxide (Mag-Ox) 400 (240 [...] 02/08/20 24 Active Lancets (OneTouch Delica Plus [id number]) miscIndications: Type 2 diabetes mellitus without complications (CMS/HCC) TEST BLOOD SUGAR TWICE DAILY 100 each 11 04/22/20 24 Active cyclobenzaprine (Flexeril) 5 MG tablet TAKE 1 TABLET BY MOUTH EVERY 8 HOURS NEEDED FOR PAIN (PAIN SCALE 7-10) FOR 5 DAYS 05/25/20 Active lidocaine (Lidoderm) 5 % patch APPLY [...] MORNING 16 g 2 08/19/19 25 Active atorvastatin (Lipitor) 40 MG tabletIndication s:Dyslipidemia TAKE 1 TABLET BY MOUTH AT BEDTIME 30 tablet 09/16/19 25 Active lisinopril 40 MG tablet TAKE 1 TABLET BY MOUTH EVERY EVENING 90 tablet 3 11/17/19 25 Active loratadine (Claritin) 10 MG tablet TAKE 1 TABLET BY MOUTH EVERY DAY 30 tablet 11/17/19 25 Active metFORMIN XR (Glucophage-XR) 500 MG 24 hr tablet TAKE 1 TABLET BY MOUTH EVERY EVENING WITH FOOD 30 tablet 11/17/19 25 Active OneTouch Ultra Test test strip TEST BLOOD SUGAR TWICE DAILY 50 strip 12/10/19 25 Active doxazosin (Cardura) 8 MG tablet TAKE 1/2 TABLET BY MOUTH AT BEDTIME 30 tablet 12/17/19 25 Active Diclofenac Sodium 1 % gelIndications:S delroy stenosis of lumbar region with neurogenic claudication Apply to affected area twice a day 100 g 12/28/19 25 Active acetaminophen (Tylenol) 500 MG tabletIndication s:Spinal stenosis of lumbar region with neurogenic claudication Take 2 tablets (1,000 mg) by mouth every 8 (eight) hours if needed for mild pain. 60 tablet 12/28/19 25 Active Diclofenac Sodium 1 % gelIndications:S delroy stenosis of lumbar region with neurogenic claudication Apply to affected area twice a day 100 g 09/17/19 24 2024 Discontinued(R eorder (will not trigger notification to Pharmacy)) doxazosin (Cardura) 8 MG tablet Take 0.5 tablets (4 mg) by mouth at bedtime. 30 tablet 11/04/192024 Discontinued OneTouch Ultra Test test strip TEST BLOOD SUGAR TWICE DAILY 50 strip 12/07/19 24 2024 Discontinued acetaminophen (Tylenol) 500 MG tablet Take 1 tablet (500 mg) by mouth every 6 (six) hours if needed for mild pain for up to 20 doses. 20 tablet 08/24/19 25 2024 Discontinued(R eorder (will not trigger notification to Pharmacy)) acetaminophen (Tylenol) 500 MG tablet Take 1 tablet (500 mg) by mouth every 6 (six) hours if needed for mild pain for up to 20 doses. 20 tablet 10/18/192024 Discontinued(D uplicate order (will not trigger notification to Pharmacy)) Active Problems Problem Noted Date Diagnosed Date Odontalgia 08/24/2024 Lower urinary tract symptoms (LUTS) 08/04/2024 Bladder stones 08/04/2024 Assessment & Plan (11/04/2024 6:10 AM EDT): - following with [facility] urology, last seen on 09/26/24 - continue adequate hydration - s/p bladder stone removal on 09/13/24 Assessment & Plan (08/25/2024 2:37 PM EST): - following with [facility] urology, last seen on 07/03/24 for cystoscopy - continue adequate hydration - scheduled for bladder stone removal with Dr. Ayala Assessment & Plan (08/11/2024 6:19 AM EST): - following with [facility] urology, last seen on 07/03/24 for cystoscopy -recommended adequate hydration and following plan per urologist Fractured dental adventism with loss of materi al 08/01/2024 Caries of cervical margin of tooth 07/08/2024 Dental plaque 07/08/2024 Staining (discoloration) of teeth 07/08/2024 Bilateral primary osteoarthritis of hip 06/03/20 Assessment & Plan (06/03/2024 1:39 PM EDT): Will trial Oxycodone 5mg at nighttime for pain, hold Flexeril Call pain mgmt for patient and attempt to schedule injections History of renal calculi 01/27/2024 Nocturia 01/04/2024 Assessment & Plan (01/04/2024 6:34 PM EDT): - Check PSA - hx of BPH and patient was seen by urologist, last appointment in 2016 - Patient is taking Torsemide in the morning - Will refer to Urology for further evaluation, if patient has elevated PSA Ascending aorta dilation 01/04/2024 Assessment & Plan (11/04/2024 6:07 AM EDT): - 11/26/23 Echo showed mild dilatation of the ascending aorta measuring 4.00 cm - Followed by Soaping Department Supervisor, monitor with echo every 6-12 months - Continue BP management Assessment & Plan (04/07/2024 11:49 AM EDT): - 11/26/23 Echo showed mild dilatation of the ascending aorta measuring 4.00 cm - Followed by Soaping Department Supervisor, monitor with echo every 6-12 months - Continue BP management Assessment & Plan (01/04/2024 11:35 AM EDT): - 11/26/23 Echo showed mild dilatation of the ascending aorta measuring 4.00 cm - Followed by Soaping Department Supervisor, monitor with echo every 6-12 months - [...] minimal 06/24/2023 Tremor 05/11/2023 Assessment & Plan (11/04/2024 11:30 AM EDT): - followed by neurology clinic, last seen in May 2024 - MRI head in Mar 2023 did not reveal any attributable cause Assessment & Plan (08/11/2024 6:22 AM EST): [...] neurologist Trochanteric bursitis of left hip 03/31/2023 Alzheimer disease 01/23/2023 Overview (11/04/2024): >>OVERVIEW FOR 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 Garces. Initially referred for tremor and memory impariment. Dx Alzehimer's disease. Impression was that he has depression and anxiety. He was prescribed donepezil in the past, but it was discontinued due to bradycardia (?) and sertraline was prescribed. - Last seen by Dr. 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 Garces - continue having social interaction, music, physical activity, and healthy diet Chronic pain of both knees 01/21/2023 Assessment [...] Plan (11/04/2023 12:40 PM EDT): -[facility]. Recommended to continue conservative management of compression stocking, DASH diet, and leg elevation. Discontinued Diltiazem due to possible side effects. -possible venous ablation -06/02/23 venous study showed b/l venous insufficiency. -recommended to discuss with his service or work dispatcher chief and vascular specialist at [facility] for other treatment options, if appropriate -discontinued amlodipine and hydralazine recently - continue torsemide Assessment & Plan (08/14/2023 11:15 AM EST): -Seen by [facility] provider in Apr 2021. Recommended to continue conservative management of compression stocking, DASH diet, and leg elevation. Discontinued Diltiazem due to possible side effects. -possible venous ablation -06/02/23 venous study showed b/l venous insufficiency. -recommended to discuss with his service or work dispatcher chief and vascular specialist at [facility] for other treatment options, if appropriate Assessment & Plan (05/11/2023 8:29 AM EDT): -Seen by [facility] provider in Apr 2021. Recommended to continue conservative management of compression stocking, DASH diet, and leg elevation. Discontinued Diltiazem due to possible side effects. -possible venous ablation -schedule venous study Assessment & Plan (2022 9:36 AM EST): -Seen by [facility] provider in Apr 2021. Recommended to continue conservative management of compression stocking, DASH diet, and leg elevation. Discontinued Diltiazem due to possible side effects. -possible venous ablation Lumbar radiculopathy 2022 Assessment & Plan (12/27/2024 12:43 PM EDT): Pt of Dr. Fagan with c/o acute pn chronic low back pain with radiation to his left glute and leg He has a Hx of Lumbar radiculopathy Most recent Lumbar MRI 10/2023 showed: Rightward curvature of the lumbar spine and multilevel spondylosis similar to MRI from 09/29/2022 without significant central spinal canal narrowing. Neural foraminal stenosis is worst and severe on the right at L5-S1 with impingement of the exiting right L5 nerve root and moderate to severe on the left at L3-L4 with impingement of the exiting left L3 nerve root. Pt received last TFESI 07/2024 with good results Evaluated by Neurosurgery in the past who recommended TFESI Declines PT today Not a good candidate for muscle relaxants Plan: Heating pad, Continue APAP and diclofenac topical Referred back to [facility] Pain management Discussed with him and patient if symptoms do not improve or worsen to come back Assessment & Plan (08/11/2024 6:12 AM EST): [...] major depressive disorder 06/17 Assessment & Plan (11/04/2024 11:31 AM EDT): - prescribed sertraline by neurologist - pt acknowledges depressive symptoms affecting pt's cognition - pt was able to contract his safety today Assessment & Plan (04/07/2024 11:50 AM EDT): [...] safety today Dyslipidemia 06/26/2015 Assessment & Plan (11/04/2024 11:31 AM EDT): - Current medication: atorvastatin 40 mg qhs - Lab: 10/28/24 - According to ACC/AHA guideline, 10-year ASCVD risk is >30 % and high-intensity statin therapy is recommended. He is currently on Lipitor 40 mg qhs. Will continue with current medication at this time and reassess if we need to intensify treatment after next lipid profile. Emphasized the importance of lifestyle modification. Assessment & Plan (04/07/2024 11:52 AM EDT): [...] lifestyle modification. Hypertension 06/26/2015 Assessment & Plan (12/27/2024 12:48 PM EDT): BP elevated mildly due to low back pain Continue current regimen Assessment & Plan (11/04/2024 6:09 AM EDT): -Goal BP <150/90 per JNC-8, < 130/80 per ACC/AHA guideline, acceptable goal < 135/85 -usually in acceptable range at home -Risk factor / associated condition: Tobacco use; [...] were discontinued due to hypotension and edema. -carvedilol was discontinued due to hypotension and bradycardia -furosemide was changed to torsemide -triamterene/hctz, which was discontinued due to pt's questionable adherence - co-managed with service or work dispatcher chief, agribusiness professor, dry house operator, and pharmacist - 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, negative Assessment & Plan (08/25/2024 2:38 PM EST): [...] to pt's questionable adherence - comanaged with service or work dispatcher chief, agribusiness professor, dry house operator, and pharmacist - evaluated for primary [...] to pt's questionable adherence - comanaged with service or work dispatcher chief, agribusiness professor, dry house operator, and pharmacist - evaluated for primary [...] to pt's questionable adherence - comanaged with service or work dispatcher chief, agribusiness professor, and pharmacist - check primary aldosteronism; may [...] to pt's questionable adherence - comanaged with service or work dispatcher chief, agribusiness professor, and pharmacist - check primary aldosteronism; may [...] to pt's questionable adherence - comanaged with service or work dispatcher chief, agribusiness professor, and pharmacist - check primary aldosteronism; may [...] to pt's questionable adherence - comanaged with service or work dispatcher chief, dry house operator, and pharmacist -?24-hr ambulatory BP monitor [...] type 2, controlled 03/03/2014 Assessment & Plan (11/04/2024 11:29 AM EDT): Dx 2013 - A1c 6.7% on 11/01/24 - A1c 7.0% 08/04/24, patient had been receiving steroid injection and received prednisone for COPD exacerbation -Continue metformin ER 500 mg once daily. -Consider GLP-1 RA -Continue working of lifestyle modifications and SMBG. Last eye exam: Dr. Faulkner, recent visit per pt's report, will request a note Last foot exam: Jul 2024 Last microalbumin test: 10/28/24 UACR 58 Last lipid profile: 10/28/24 TC 126; TG 125; HDL 43; LDL 58 Last dental exam: up to date Follow up in 3-6 mo or sooner if any problem arises Assessment & Plan (08/25/2024 2:37 PM EST): [...] (chronic obstructive pulmonary disease) Assessment & Plan (12/27/2024 12:48 PM EDT): Pt c/o intermittent DAIGLE, denies any chest pain Pt has gained significant amount of weight since lasr year, discussed the need to loose weight No recent COPD exacerbation He also follows regularly with cardiology Per cardiology notes, last ECHO 2023 Conclusions: - Normal left ventricular size and systolic function. There is moderately increased left ventricular wall thickness. The visually estimated ejection fraction is between 60-65%. - Normal right ventricular cavity size and systolic function. - The left atrium is likely dilated. - There is mild dilatation of the ascending aorta measuring 4.00 cm. Seeing [facility] Pulmonology Dr. Castillo last on 06/20/24, He recommended to continue umeclidinium - vilanterol (Anoro) and albuterol HFA prn Recommended to follow up with Dr. Castillo Assessment & Plan (11/01/2024 8:38 AM EDT): - Last exacerbation due to Influenza B in September - October 2023, seen in ED twice, and received prednisone and azithromycin. - Mild bronchitic exacerbation in Jun 2024, treated with azithromycin. - Restarted seeing [facility] Pulmonology providers. Seen by Dr. Castillo on [...] recommendations by Dr. Castillo Assessment & Plan (08/25/2024 2:39 PM EST): - Last exacerbation due to Influenza B in September - October 2023, seen in ED twice, and received prednisone and azithromycin. - Mild bronchitic exacerbation in Jun 2024, treated with azithromycin. - Restarted seeing [facility] Pulmonology providers. Seen by Dr. Castillo on [...] 2024, treated with azithromycin. - Restarted seeing [facility] Pulmonology providers. Seen by Dr. Castillo on [...] received prednisone and azithromycin. - Restarted seeing [facility] Pulmonology providers. Seen by Dr. Castillo on [...] received prednisone and azithromycin. - Restarted seeing [facility] Pulmonology providers. Seen by Dr. Castillo on [...] received prednisone and azithromycin. - Restarted seeing [facility] Pulmonology providers. Last seen by Dr. Castillo [...] PLAN FOR COPD (CHRONIC OBSTRUCTIVE PULMONARY DISEASE) ([facility]) WRITTEN ON 08/13/2023 4:56 AM BY BRIDGETTE FAGAN MD Last exacerbation due to CAP in Aug 2017 Following with [facility] pulmonology, Dr. Cruz Continue Advair as maintenance. [...] PLAN FOR COPD (CHRONIC OBSTRUCTIVE PULMONARY DISEASE) ([facility]) WRITTEN ON 05/11/2023 8:27 AM BY BRIDGETTE FAGAN MD Last exacerbation due to CAP in Aug 2017 Following with [facility] pulmonology, Dr. Cruz Continue Advair as maintenance. [...] to CAP in Aug 2017 Following with [facility] pulmonology, Dr. Cruz Continue Advair as maintenance. Continue ProAir HFA prn. Most recent PFT in 10/01/2018 -Mild degree of restrictive pulmonary disorder, which may be due to obesity. -No obstructive airway disease (but pt has SHANON) -Work on smoking cessation -Consider MRA in the future 11/25/[address] lung RADS2 External hemorrhoids 01/07/2013 Kidney stone 01/07/2013 Microscopic hematuria 01/07/2013 Obesity 01/07/2013 Assessment & Plan (11/04/2024 11:29 AM EDT): Continue working on lifestyle modifications. Generic advice as below. Modify for individualized plan and work on your health goal. Dietary Recommendations: Fruits, vegetables, whole grains, protein foods, and fat-free or low-fat dairy products are healthy choices. Eat different types of protein foods in your diet. This can include seafood, lean meats, poultry, beans, peas, lentils, nuts, seeds, soy products, and eggs. Limit foods and beverages higher in added sugars, saturated fat, and sodium. Exercise Recommendations: At least 150 minutes of moderate-intensity physical activity per week, or an equivalent combination of moderate- and vigorous-intensity activity Obstructive sleep apnea syndrome 01/07/2013 Assessment & Plan (11/01/2024 8:37 AM EDT): -Last sleep study on 07/22/2018. Dx SHANON -Restarted auto-PAP in 2019 -Currently followed by [facility] sleep clinic, last appointment in May 2023, auto-PAP 8-20 cm H2O -Continue current setting -Work on lifestyle modifications Assessment & Plan (08/25/2024 2:39 PM EST): -Last sleep study on 07/22/2018. Dx SHANON -Restarted auto-PAP in 2019 -Currently followed by [facility] sleep clinic, last appointment in May 2023, auto-PAP 8-20 cm H2O -Continue current setting -Work on lifestyle modifications Assessment & Plan (08/04/2024 10:59 PM EST): -Last sleep study on 07/22/2018. Dx SHANON -Restarted auto-PAP in 2019 -Currently followed by [facility] sleep clinic, last appointment in May 2023, auto-PAP 8-20 cm H2O -Continue current setting -Work on lifestyle modifications Assessment & Plan (04/07/2024 11:48 AM EDT): -Last sleep study on 07/22/2018. Dx SHANON -Restarted auto-PAP in 2019 -Currently followed by [facility] sleep clinic, last appointment in May 2023, auto-PAP 8-20 cm H2O -Continue current setting -Work on lifestyle modifications Assessment & Plan (08/13/2023 4:54 AM EST): -Last sleep study on 07/22/2018. Dx SHANON -Restarted auto-PAP in 2019 -Currently followed by [facility] sleep clinic, last appointment in May 2023, auto-PAP 8-20 cm H2O -Continue current setting -Work on lifestyle modifications Assessment & Plan (05/11/2023 8:26 AM EDT): -Last sleep study on 07/22/2018. Dx SHANON -Restarted auto-PAP in 2019 -Currently followed by [facility] sleep clinic, last appt in 12/31/21, auto-PAP 8-20 cm H2O -Pt received new CPAP machine and now scheduled for Mask Fitting d/t pain on his head. -Continue current setting -Work on lifestyle modifications -Will request [facility] sleep medicine clinic to follow up and provide recommendation. Assessment & Plan (01/21/2023 10:57 AM EDT): -Last sleep study on 07/22/2018. Dx SHANON -Restarted auto-PAP in 2019 -Currently followed by [facility] sleep clinic, last appt in 11/13/22 , New CPAP was prescribed. APAP 8-20 cmH2O. -Continue current setting -Work on lifestyle modifications Assessment & Plan (2022 2:08 PM EST): -Last sleep study on 07/22/2018. Dx SHANON -Restarted auto-PAP in 2019 -Currently followed by [facility] sleep clinic, last appt in 12/31/21, auto-PAP 8-20 cm H2O -Pt received new CPAP machine and now scheduled for Mask Fitting d/t pain on his head. -Continue current setting -Work on lifestyle modifications -Will request [facility] sleep medicine clinic to follow up and provide recommendation. Assessment & Plan (09/24/2022 10:57 AM EST): -Last sleep study on 07/22/2018. Dx SHANON -Restarted auto-PAP in 2019 -Currently followed by [facility] sleep clinic, last appt in 12/31/21, auto-PAP [...] check with Lung Cancer screening program in [facility] for next CT scan schedule -Continue working on smoking cessatioin Allergic rhinitis 01/07/2013 Assessment & Plan (05/11/2023 8:48 AM EDT): - continue loratadine - previously on ipratropium nasal spray which was effective - will prescribe 3 different nasal sprays (saline to moisten and clean nasal cavity, steroid for inflammation, and ipratropium to dilate nasal airway). Benign prostatic hyperplasia 01/27/2012 Assessment & Plan (11/04/2024 11:22 AM EDT): - following with [facility] Urology - s/p TURP and bladder stone removal on 09/13/24 - continue doxazosin and finasteride Assessment & Plan (08/25/2024 2:37 PM EST): - following with [facility] Urology - continue doxazosin and finasteride Assessment & Plan (08/11/2024 6:20 AM EST): - following with [facility] Urology - continue doxazosin and finasteride Assessment [...] Encounters Date Type Department Care Team Description 12/27/2024 11:30 AM EDT Office Visit [facility] [address] [place] [address] Todd Dooley MD Lumbar radiculopathy (Primary Dx); Spinal stenosis of lumbar region with neurogenic claudication; Chronic obstructive pulmonary disease, unspecified COPD type (CMS/HCC); Hypertension, unspecified type 12/27/2024 Travel 12/27/2024 Telephone [facility] [address] [place] [place] [id number] Bridgette Fagan MD Nurse Triage 12/16/2024 Refill [facility] [address] [place] [place] [address] Bridgette Fagan MD 12/09/2024 Refill [facility] [address] [place] [place] [address] Bridgette Fagan MD 11/16/2024 Refill [facility] [address] [place], [place] [address] Bridgette Fagan MD 11/15/2024 Refill [facility] [address] [place] [place] [address] Bridgette Fagan MD 11/01/2024 10:30 AM EDT Office Visit [facility] [address] [place], [place] [address] Bridgette Fagan MD Hypertension, unspecified type (Primary Dx); Chronic obstructive pulmonary disease, unspecified COPD type (CMS/HCC); Obstructive sleep apnea syndrome; Bladder stones; Benign prostatic hyperplasia with lower urinary tract symptoms, symptom details unspecified; Class 2 severe obesity due to excess calories with serious comorbidity and body mass index (BMI) of 38.0 to 38.9 in adult (CMS/[facility]); Controlled type 2 diabetes mellitus without complication, without long-term current use of insulin (CMS/[facility]); Tremor; Alzheimer disease ([facility]); 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 ([facility]); Ascending aorta dilation ([facility] [place]); Dietary counseling; Exercise counseling; Dyslipidemia; Chronic recurrent major depressive disorder ([facility]) 11/01/2024 Travel 10/27/2024 Telephone [facility] MEDICINE [address] [place] [address] Bridgette Fagan MD chart prep 10/19/2024 Orders Only GENERIC EXTERNAL DATA DEPARTMENT Provider, Generic External Data 10/17/2024 1:00 PM EST Office Visit [facility] ADULT DENTAL [address] [place] [address] Byron Enriquez from Last 3 Months Immunizations Immunization Administration Dates Next Due Hep B, adult [...] housing situation today? I have bertrand bender 12/27/[address] you li ve. Do you have problems with any of the following? None of the above 12/27/2024 Food Insecurity Answer Date Recorded Within the past 12 months, y ou worried that your food would run out before you got money to buy more: Never True 12/27/2024 Within the past 12 months,th e food you bought just didn't last and you didn't have enough money to get more: Never True Transportation Answer Date Recorded In the past 12 months, has l ack of transportation kept you from medical appts, meetings, work or from getting things needed for daily living? No 12/27/2024 Utilities Answer Date Recorded In the past 12 months, has t he electric, gas, oil or water company threatened to shut off services in your home? No 12/27/2024 Depression Answer Date Recorded Patient Health Questionnaire-2 Score 0 04/07/2024 Internet Access Answer Date Recorded Internet Access Q1 No 12/27/2024 Internet Access Q2 I do not want or need it 12/15 Sex and Gender Information Value Date Recorded Sex Assigned at Male 06/16/2022 10:14 AM EDT Legal Sex Male 10:14 AM EDT Gender Identity Male 06/16/2022 10:14 AM EDT Sexual Orientation Choose not to disclose 2021 10:14 AM EDT Last Filed Vital Signs Vital Sign Reading Time Taken Comments Blood Pressure 148/75 12/27/2024 11:40 AM EDT Pulse 79 12/27/2024 11:40 AM EDT Temperature 36.1 ??C (96.9 ??F) 12/27/2024 11:39 AM E DT Respiratory Rate 18 12/27/2024 11:39 AM EDT Oxygen Saturation 94% 12/27/2024 11:39 AM EDT Inhaled Oxygen Concentration - - Weight 111 kg (245 lb 12.8 oz) 12/27/2024 11:39 AM EDT Height 167.6 cm (5' 6 ) 12/27/2024 11:39 AM EDT Body Mass Index 39.67 12/27/2024 11:39 AM EDT Plan of Treatment Upcoming Encounters Date Type Department Care Team (Late st Contact Info) Description 01/06/2025 10:00 AM EDT Office Visit [facility] ADULT DENTAL [address] [place] [address] Lydia Mac [address] [place] [address] 01/31/2025 11:15 AM EDT Office Visit [facility] MEDICINE [address] [place] [address] Bridgette Fagan MD [address] [place], [place] [phone] Health Maintenance Due Date Last Done Comments Zoster Vaccines (2 of 3) 06/22/2017 04/27/2017 RSV Patients and Patients Aged 60 years or older (1 - 1-dose 75+ series) 2020 DTaP/Tdap/Td Vaccines (2 - Td or Tdap) 09/14/2023 09/14/2013, 01/23/1997, 01/23/1997 COVID-19 Vaccine ( season) 2024 Influenza Vaccine (#1) 2024 0, 05/02/2020, 06/13/2019, Additional history exists Dental Oral Exam 01/06/2025 07/08/2024, 03/2023, 06/20/2022 Dental Prophylaxis 01/06/2025 07/08/2024, 0 12/28/2023, 06/24/2023, Additional history exists Diabetes: Hemoglobin A1C 02/01/2025 0318/2 025, 08/04/2024, 04/07/2024, Additional history exists Depression Screening 04/07/2025 04/07/2024, 04/07/20 24 Dental X-Ray: Full Mouth 06/21/2025 06/20/2022 Alcohol/Substance Use Screening 08/04/2025 08/04/2024 Diabetes: Foot Exam 08/04/2025 08/04/2024, 08/13/2023, 08/13/2023, Additional history exists Dental X-Ray: Bitewings 09/13/2025 09/12/19, 07/08/2024, 06/24/2023 Diabetes: Urine Protein Screening 10/28/2025 10/28/2024, 11/18/2023, 04/28/2023, Additional history exists Lipid Panel 10/28/2025 10/28/2024, 04/10/2023, 01/21/2023, Additional history exists SDOH Screening 12/27/2025 12/27/2024 Tobacco Screening 12/27/2025 12/27/2024 Eye Exam 06/29/2026 06/29/2024 Pneumococcal Vaccine: 50+ [...] patient's age to complete this topic Hepatitis C Screening Discontinued IPV Vaccines Aged Out No longer eligi ble based on patient's age to complete this topic Meningococcal B Vaccine Aged Out No l onger eligible based on patient's age to complete [...] 148/75(2024 11:40 AM EDT) No Ramón Bolaños, Bradley Hemoglobin A1c < 7 Result Component 6.7( 10:23 AM EDT) No Ramón Bolaños, Bradley Procedures Procedure Name Priority Date/Time Associated Diagnosis Comments POCT GLYCOSYLATED HEMOGLOBIN (HGB A1C) Routine 11/01/2024 10:23 AM EDT Controlled type 2 diabetes mellitus without complication, without long-term current use of insulin ([facility] [place]) POCT GLUCOSE Routine 11/01/2024 10:23 AM EDT Controlled type 2 diabetes mellitus without complication, without long-term current use of insulin ([facility]) COMPREHENSIVE METABOLIC PANEL Routine 10/28/2024 9:15 AM EDT Controlled type 2 diabetes mellitus without complication, without long-term current use of insulin ([facility] [place]) ALBUMIN, RANDOM URINE W/CREATININE Routine 10/28/2024 9:15 AM EDT Controlled type 2 diabetes mellitus without complication, without long-term current use of insulin ([facility] [place]) LIPID PANEL WITH REFLEX TO DIRECT LDL Routine 10/28/2024 9:15 AM EDT Controlled type 2 diabetes mellitus without complication, without long-term current use of insulin ([facility] [place]) VITAMIN B12/FOLATE, SERUM PANEL Routine 10/28/2024 9:15 AM EDT Controlled type 2 diabetes mellitus without complication, without long-term current use of insulin ([facility] [place]) URINALYSIS, COMPLETE Routine 10/19/2024 8:55 AM EST CULTURE, URINE, ROUTINE Routine 10/19/2024 8:55 AM EST CASE PRESENTATION, DETAILED AND EXTENSIVE TREATMENT PLANNING Routine 10/17/2024 1:00 PM EST 32 LIMITED ORAL EVALUATION - PROBLEM FOCUSED Routine 10/17/2024 1:00 PM EST BITEWING - SINGLE RADIOGRAPHIC IMAGE Routine 09/12/2024 10:15 AM EST PROPHYLAXIS - ADULT Routine 07/08/2024 9 :00 AM EST Dental plaque Staining (discoloration) of teeth PERIODIC ORAL EVALUATION - ESTABLISHED PATIENT Routine 07/08/2024 9:00 AM EST HM DIABETES EYE EXAM Routine 06/29/2024 LDCT LUNG SCREENING Routine 12/22/2023 9 :58 AM EDT from Last 3 Months or Most Recently Relevant to Health Maintenance Results * (ABNORMAL) POCT glycosylated hemoglobin (Hgb A1c) (11/01/2024 10:23 AM EDT) Pathologist [facility] Hemoglobin A1C 6.7(A) 4.0 - 6.0 % QC Media Lot # [id number] Lot# Expiration Date Blood Capillary blood specimen / Unknown 11/01/2024 10:23 AM EDT Bridgetet Fagan MD POINT OF CARE TEST ENTER/EDIT OR DERABLES Final Result * (ABNORMAL) POCT glucose manually resulted (11/01/2024 10:23 AM EDT) Pathologist [facility] Glucose Blood, POC 287(A) 60 - 200 mg/dL QC Media Lot # [id number] Lot# Expiration Date Blood Capillary blood specimen / Unknown 11/01/2024 10:23 AM EDT Bridgette Fagan MD POINT OF CARE TEST ENTER/EDIT OR DERABLES Final Result * Vitamin B12 (Cobalamin) and Folate Panel, Serum (10/28/2024 9:15 AM EDT) Pathologist [facility] Vitamin B12 253 200 - 900 pg/mL [facility] Comment:NORMAL 200-900 PG/ML INDETERMINATE 160-199 PG/ML DEFICIENT < 160 PG/ML Folate 10.8 > or = 4.0 ng/mL [facility] Comment:Reference Values:> o r = 4.0 ng/mL< 4.0 ng/mL suggests folate deficiency Methotrexate, aminopterin and folinic acid(leucovorin) are chemotherapeutic agents whose molecularstructures are similar to folate; therefore, the Architectfolate assay cannot be used for patients using these drugs. Blood 10/28/2024 9:15 AM EDT 10/28/2024 11:15 AM EDT Bridgette Fagan MD LAB BLOOD ORDERABLES Final Resul t [facility] [address] [place] [address] [phone] * Lipid Panel with Reflex to Direct LDL (10/28/2024 9:15 AM EDT) Triglycerides 125 <150 mg/dL [facility] Comment:Desirable Triglyceri de: less than 150 mg/dLBorderline High Triglyceride 150-199 mg/dLHigh Triglyceride: 200-499 mg/dLVery High Triglyceride: greater than or equal to 5OO mg/dL Cholesterol 126 <200 mg/dL [facility] Comment:Desirable Cholestero l: less than 200 mg/dLBorderline High Cholesterol: 200-239 mg/dLHigh Cholesterol: greater than 239 mg/dL LDL Cholesterol Calculated 58 <100 mg/dL [facility] Comment:Desirable LDL: less than 100 mg/dLNear Optimal/Above Optimal LDL: 110- 129 mg/dLBorderline High LDL: 130-159 mg/dLHigh LDL: 160-189 mg/dLVery High LDL: greater than or equal to 190 mg/dL HDL Cholesterol 43 >40 mg/dL [facility] Comment:Desirable HDL: great er than 40 mg/dL Note: This HDL assay may give artificially low results in patients with liver disease. Blood 10/28/2024 9:15 AM EDT 10/28/2024 11:15 AM EDT us Bridgette Fagan MD LAB BLOOD ORDERABLES Final Resul t Performing Organization Address City/[facility]/ZIP Co de Phone Number [facility] [address] [place] [phone] * (ABNORMAL) Albumin, Random Urine W/Creatinine (10/28/2024 9:15 AM EDT) Creatinine, Urine 247.97 mg/dL [facility] Microalbumin Urine 145.0 mg/L H [facility] Microalbum Creatinine Ratio Ur 58.4(H) <30 ug/mg cr [facility] Comment:Albumin/Creatinine R atio Reference Ranges: Normal: < 30 ug/mg creatinine Microalbuminuria: 30 - 300 ug/mg creatinineClinical Albuminuria: > 300 ug/mg creatinine Urine 10/28/2024 9:15 AM EDT 10/28/2024 11:14 AM EDT us Bridgette Fagan MD LAB URINE ORDERABLES Final Resul t [facility] [address] [place] [address] [phone] * (ABNORMAL) Comprehensive Metabolic Panel (10/28/2024 9:15 AM EDT) Sodium 142 135 - 145 mmol/L [facility] Potassium 3.9 3.3 - 5.1 mmol/L [facility] Chloride 103 96 - 108 mmol/L [facility] Carbon Dioxide 31(H) 22 - 29 mmol/L [facility] Anion Gap 12 12 - 20 [facility] Urea Nitrogen (BUN) 17(H) 9 - 16 mg/dL [facility] Creatinine, Serum 0.96 0.5 - 1.4 mg/dL [facility] Estimated Glomerular Filt Rate >60 [facility] Comment:Chronic Kidney Disea se: Estimated GFR < 60 mL/min/1.01x2Ewyvmz Kidney Disease: Estimated GFR < 15 mL/min/1.73m2 Glucose 138(H) 60 - 115 mg/dL [facility] Calcium 9.3 8.4 - 10.2 mg/dL [facility] Bilirubin, Total 0.6 0.0 - 1.0 mg/dL [facility] Aspartate Amino Transferase 34 5 - 37 U/L [facility] Alanine Aminotransferase 31 0 - 40 U/L [facility] Total Protein 7.4 6.5 - 8.0 g/dL [facility] Albumin Level 4.0 3.5 - 5.0 g/dL [facility] Alkaline Phosphatase 91 39 - 117 U/L [facility] Blood Venous blood specimen / Unknown 10/28/2024 9:15 AM EDT 10/28/2024 11:15 AM EDT us Bridgette Fagan MD LAB BLOOD ORDERABLES Final Resul t Performing Organization Address [facility] Co de Phone Number [facility] [address] [place] [phone] * (ABNORMAL) Urinalysis Complete (10/19/2024 8:55 AM EST) Color Urine RED [facility] Appearance Urine Turbid [facility] PH 6.0 5.0 - 9.0 [facility] Glucose Urine UA Negative Negative mg/dL [facility] Urine Blood Large (3+)(A) Negative [facility] Specific [place] - Urine 1.020 1.005 - 1.025 [facility] Urine Protein 100 (2+)(A) Neg-Trace mg/dL [facility] Urine Ketones Negative Negative mg/dL [facility] Nitrite Urine Negative Negative [facility] Leukocyte Esterase Urine Negative Negative [facility] RBC Urine >20(A) 0 - 2 /HPF [facility] Urine WBC 21-50 0 - 5 /HPF [facility] Urine Squamous Epithelial Cell 3-5 0 - 2 /HPF [facility] Urine Bacteria 4+ None Seen [facility] Hyaline Casts, Urine 0-2 0 - 2 /LPF [facility] 10/19/2024 8:5 5 AM EST 10/19/2024 9:56 AM EST us Generic External Data Provider LAB URINE ORDERAB LES Final Result Performing Organization Address [facility]/ZIP Co de Phone Number [facility] [address] [place] [phone] * Culture, Urine, Routine (10/19/2024 8:55 AM EST) Urine Urine specimen obtained by clean catch procedure / Unknown 10/19/2024 8:55 AM EST 10/19/2024 9:56 AM EST Comment:UACC Narrative [facility] - 10/21/2024 11:46 AM EST Urine Culture Report Result Urine Culture < 10,000 cfu/ml Specimen Source: Urine clean catch us Generic External Data Provider LAB MICROBIOLOGY - GENERAL ORDERABLES Final Result [facility] [address] [place] [address] [phone] * Hm Diabetes Eye Exam (06/29/2024) Eye Exam Normal Normal 06/29/2024 us Historical Provider MD HEALTH MAINTENANCE Final Result * CT Lung Screening Low dose (12/22/2023 9:58 AM EDT) Anatomical Region Laterality Modality Lung Computed Tomogra phy 12/22/2023 9:58 AM EDT Narrative 12/27/2023 11:40 PM EDT ? [facility] ?[address] ?[place] [address] ? CT Scan Report ? Signed ? Patient: Bharathi Walsh ?M ?? R#: [id number] ? : 1945 ?Acct:[id number] ? Age/Sex: 78 / M ?ADM Date: 12/22/23 ? Loc: HO.CT ? Attending Dr: Tc Castillo MD ? Ordering Physician: Tc Castillo MD ?? Date of Service: 12/22/23 ?? Procedure(s): CT lung screening ?? Accession Number(s): [id number] ? cc: Tc Castillo MD; Bridgette Fagan [...] for CT CHEST LOW DOSE CANCER SCREENING ([id number]) ?? can be placed. ? Dictated By: ?Kun Enciso MD ? Signed By: ?<Electronically signed by Kun Enciso MD in OV> ? 12/27/236 ? DD/ 0958 ? TD/TT: ? Transportation Equipment Painter: SS ? Procedure Note Donotuseinterpreter, Image - 12/27/[address] [address] [address] Scan Report Signed Patient: Shalom Walsh R#: [id number] : 6Acct:[id number] Age/Sex: 78 / MADM Date: 12/22/23 Loc: HO.CT Attending Dr: Tc Castillo MD Ordering Physician: Tc Castillo MD Date of Service: 12/22/23 Procedure(s): CT lung screening Accession Number(s): [id number] cc: Tc Castillo MD; Bridgette Fagan MD [...] for CT CHEST LOW DOSE CANCER SCREENING ([id number]) can be placed. Dictated By: Kun Enciso MD Signed By: <Electronically signed by Kun Enciso MD in OV> 12/27/23 2336 DD/ 0958 TD/TT: Transportation Equipment Painter: ANGELA [facility] External Provider IMG CT PROCEDURES Edited Result - Final from Last 3 Months or Most Recently Relevant to Health Maintenance Insurance [facility] DUAL COMPLETE DENTAL - [facility] * Guarantor: Bharathi Walsh Account Type Relation to Patient Date of Phone Billing Address Personal/Family Self [address] [place] [address] * Guarantor: Bharathi Walsh Account Type Relation to Patient Date of Phone Billing Address Personal/Family Self [address] [place] [address] * Guarantor: Bharathi Walsh Account Type Relation to Patient Date of Phone Billing Address Personal/Family Self [address] [place] [address] Care Teams Sewing Machinist Relationship Specialty Start Date End Date Bridgette Fagan MD [address] [facility] [place] [address] PCP - General Family Medicine 07/01/12 Ramón Bolaños, MollyD [address] [place] [address] Pharmacist Internal Medicine 11/18/23
--- OUTSIDE RECORDS SUMMARY | 2025-01-02 11:55 | XMS_ITS | Encounter Summary ---
Author Organization [employer] Address [address] [place] [address] [address] [place] [address] Care Team Providers Care Sewage Plant Supervisor Name Role Phone Bridgette Gandhi MD Primary Care Provider Ramón Bolaños PharmD Unavailable Encounter Details Date Type Department Care Team (Late st Contact Info) Description 07/30/2022 Abstract [facility] ADULT DENTAL [address] [place] [address] Lydia Mac [address] [place] [address] Social History Tobacco Use Types Packs/Day Years [...] Description 01/06/2025 10:00 AM EDT Office Visit [facility] ADULT DENTAL [address] [place] [address] Bubba Lydia [address] [place] [address] 01/31/2025 11:15 AM EDT Office Visit [facility] MEDICINE [address] [place] [address] Bridgette Gandhi MD [address] [place], [place] [phone] documented as of this encounter Procedures Procedure [...] on filedocumented in this encounter Care Teams Sewage Plant Supervisor Relationship Specialty Start Date End Date Bridgette Gandhi MD [address] [place] [address] PCP - General Family Medicine 07/01/12 Ramón Bolaños PharmD [address] [place] [address] Pharmacist Internal Medicine 11/18/23 documented as of this encounter
--- OUTSIDE RECORDS SUMMARY | 2025-01-02 11:55 | XMS_ITS | Encounter Summary ---
Author Organization [employer] Address [address] [facility] [address] [place] [address] Care Team Providers Care Senior Director Insight Name Role Phone Bridgette Gandhi MD Primary Care Provider [phone] Ramón Bolaños PharmD Unavailable [phone] Reason for Visit * Reason Onset Date Comments ER Follow-up 05/26/2024 Nurse Triage 05/26/2024 Encounter Details Date Type Department Care Team (Late st Contact Info) Description 05/26/2024 Telephone [facility] MEDICINE [address] [place], [place] [phone] Bridgette Gandhi MD [address] [place], [place] [phone] ER Follow-up; Nurse Triage Social History Tobacco [...] Please assist with obtaining discharge summary for [facility] ED visit on 05/25/24 for provider review prior to upcoming appointment. Future Appointments Date Time Provider Department Center 05/27/2024 8:45 AM Jeremias Gong MD [facility] 01/11/2025 10:00 AM Susy Dixon PharmD [facility] * Telephone Encounter - Danii Hope RN [...] Center 05/27/2024 8:45 AM Jeremias Gong MD [facility] 01/11/2025 10:00 AM Susy Dixon PharmD [facility] Insurance verified as active per Real Time Eligibility in [email or web address] Video visit offered and caller accepted Positive Triage Question: * Patient wants to be seen * All higher-acuity triage questions were negative Care Advice Discussed: * Continue Treatment * Reasons To Call Back - You become worse * Telephone Encounter - Russell Dumas - 05/26/2024 2:13 PM EDT Patient calling to report ED visit on : Date: 05/25/24 Hospital: [facility] Seen for: Severe hip and thigh [...] 10:00 AM EDT Office Visit [facility] ADULT DENTAL [address] [place] [address] Greg Macaris [address] [place] [address] 01/31/2025 11:15 AM EDT Office Visit [facility] MEDICINE [address] [place] [address] Bridgette Gandhi MD [address] [place] [address] documented as of this encounter Goals Goal Patient Goal Type Associated Problems Recent Progress Patient-Stated? Author Blood Pressure < 140/90 Blood Pressure 148/75(2024 11:40 AM EDT) No Ramón Bolañso PharmD Hemoglobin A1c < 7 Result Component 6.7( 10:23 AM EDT) No Ramón Bolaños PharmD documented as of this encounter Visit Diagnoses Not on filedocumented in this encounter Additional Health Concerns Assessment Noted Time PHQ-9 Depression Total Score: 0 04/07/20 11:45 AM EDT documented as of this encounter Care Teams Senior Director Insight Relationship Specialty Start Date End Date Bridgette Gandhi MD [address] [place] [address] PCP - General Family Medicine 07/01/12 Ramón Bolaños PharmD [address] [place] [address] Pharmacist Internal Medicine 11/18/23 documented as of this encounter
--- OUTSIDE RECORDS SUMMARY | 2025-01-02 11:55 | XMS_ITS | Encounter Summary ---
Author Organization [employer] Address [address] [facility] [address]t [place] [address] Care Team Providers Care Photovoltaic Power Systems Engineer Name Role Phone Bridgette Gandhi MD Primary Care Provider [phone] Ramón Bolaños PharmD Unavailable [phone] Encounter Details Date Type Department Care Team (Late Contact Info) Description 04/30/2023 Abstract [facility] MEDICINE [address] [place] [address] Bridgette Gandhi MD [address] [place] [address] Social History Tobacco Use Types Packs/Day Years [...] Description 01/06/2025 10:00 AM EDT Office Visit [facility] ADULT DENTAL [address] [place], [place] [phone] Lydia Mac [address] [place] [address] 01/31/2025 11:15 AM EDT Office Visit [facility] MEDICINE [address] [place] [address] Bridgette Gandhi MD [address] [place] [address] documented as of this encounter Procedures Procedure [...] documented as of this encounter Care Teams Photovoltaic Power Systems Engineer Relationship Specialty Start Date End Date Bridgette Gandhi MD [address] [place] [phone] PCP - General Family Medicine 07/01/12 Ramón Bolaños, Bradley [address] [place] [address] Pharmacist Internal Medicine 11/18/23 documented as of this encounter
--- OUTSIDE RECORDS SUMMARY | 2025-01-02 11:55 | XMS_ITS | Encounter Summary ---
Author Organization [employer] Address [address] [facility] [address]t [place] [address] Care Team Providers Care Group Product Manager Name Role Phone Bridgette Gandhi MD Primary Care Provider [phone] Ramón Bolaños PharmD Unavailable [phone] Encounter Details Date Type Department Care Team (Late st Contact Info) Description 08/28/[address] [facility] MEDICINE [address] [place], [place] [phone] Bridgette Gandhi MD [address] [place], [place] [phone] Social History Tobacco Use Types Packs/Day Years [...] Description 01/06/2025 10:00 AM EDT Office Visit [facility] ADULT DENTAL [address] [place] [address] Lydia Mac [address] [place] [address] 01/31/2025 11:15 AM EDT Office Visit [facility] MEDICINE [address] [place] [address] Bridgette Gandhi MD [address] [place] [address] documented as of this encounter Visit Diagnoses Not on filedocumented in this encounter Additional Health Concerns Assessment Noted Time PHQ-9 Depression Total Score: 5 09/11/19 23 10:25 AM EST documented as of this encounter Care Teams Group Product Manager Relationship Specialty Start Date End Date Bridgette Gandhi MD [address] [place] [phone] PCP - General Family Medicine 07/01/12 Ramón Bolaños, MollyD [address] [place] [phone] Pharmacist Internal Medicine 11/18/23 documented as of this encounter
--- OUTSIDE RECORDS SUMMARY | 2025-01-02 11:55 | XMS_ITS | Encounter Summary ---
Author Organization [employer] Address [address] [facility] [address] [place] [address] Care Team Providers Care Dough Sheeter Name Role Phone Bridgette Gandhi MD Primary Care Provider Ramón Bolaños PharmD Unavailable [phone] Encounter Details Date Type Department Care Team (Late st Contact Info) Description 09/04/2023 Orders Only [facility] MEDICINE [address] [place], [place] [phone] Bridgette Gandhi MD 230 [place], [place] [phone] Chronic pain of both knees (Primary Dx) [...] Description 01/06/2025 10:00 AM EDT Office Visit [facility] ADULT DENTAL [address] [place] [address] Bubba, Lydia [address] [place] [address] 01/31/2025 11:15 AM EDT Office Visit [facility] MEDICINE [address] [place] [address] Bridgette Gandhi MD [address] [place] [phone] documented as of this encounter Visit Diagnoses Diagnosis Chronic pain of both knees- Primary documented in this encounter Additional Health Concerns Assessment Noted Time PHQ-9 Depression Total Score: 5 09/11/19 23 10:25 AM EST documented as of this encounter Care Teams Dough Sheeter Relationship Specialty Start Date End Date Bridgette Gandhi MD [address] [place] [phone] PCP - General Family Medicine 07/01/12 Ramón Bolaños, PharmD [address] [place] [phone] Pharmacist Internal Medicine 11/18/23 documented as of this encounter
--- OUTSIDE RECORDS SUMMARY | 2025-01-02 11:55 | XMS_ITS | Encounter Summary ---
Author Organization [employer] Address [address] [facility] 7t [place] [address] Care Team Providers Care Trade Embalmer Name Role Phone Bridgette Gandhi MD Primary Care Provider [phone] Ramón Bolaños PharmD Unavailable [phone] Encounter Details Date Type Department Care Team (Late st Contact Info) Description 09/22/2023 Orders Only [facility] MEDICINE [address] [place], [place] [phone] Bridgette aGndhi MD 230 [place], [place] [phone] Chronic obstructive pulmonary disease, unspecified COPD type [...] Visit [facility] ADULT DENTAL [address] [place] [address] Bubba, Lydia 230 [place] [address] 01/31/2025 11:15 AM EDT Office Visit [facility] MEDICINE [address] [place] [address] Bridgette Gandhi MD [address] [place] [phone] documented as of this encounter Visit Diagnoses Diagnosis Chronic obstructive pulmonary disease, unspecified COPD type ([facility])- Primary Obstructive sleep apnea syndrome Obstructive sleep apnea (adult) (pediatric) documented in this encounter Additional Health Concerns Assessment Noted Time PHQ-9 Depression Total Score: 5 09/11/19 23 10:25 AM EST documented as of this encounter Care Teams Trade Embalmer Relationship Specialty Start Date End Date Bridgette Gandhi MD [address] [place] [phone] PCP - General Family Medicine 07/01/12 Ramón Bolaños, MollyD [address] [place] [address] [phone] Pharmacist Internal Medicine 11/18/23 documented as of this encounter
--- OUTSIDE RECORDS SUMMARY | 2025-01-02 11:55 | XMS_ITS | Encounter Summary ---
Author Organization [employer] Address [address] [facility] 7t [place] [address] Care Team Providers Care Colliery Clerk Name Role Phone Bridgette Gandhi MD Primary Care Provider [phone] Ramón Bolaños PharmD Unavailable [phone] Encounter Details Date Type Department Care Team (Late Contact Info) Description 10/09/2022 Orders Only [facility] MEDICINE [address] [place] [address] Bridgette Gandhi MD 230 [place], [place] [phone] Spinal stenosis of lumbar region with neurogenic [...] Upcoming Encounters Date Type Department Care Team ([facility] Contact Info) Description 01/06/2025 10:00 AM EDT Office Visit [facility] ADULT DENTAL [address] [place] [address] Greg Macaris [address] [place] [address] 01/31/2025 11:15 AM EDT Office Visit [facility] MEDICINE [address] [place] [address] Bridgette Gandhi MD [address] [place] [address] documented as of this encounter Visit Diagnoses Diagnosis Spinal stenosis of lumbar region with neurogenic claudication- Primary documented in this encounter Additional Health Concerns Assessment Noted Time PHQ-9 Depression Total Score: 5 09/11/19 23 10:25 AM EST documented as of this encounter Care Teams Colliery Clerk Relationship Specialty Start Date End Date Bridgette Gandhi MD [address] [place] [phone] PCP - General Family Medicine 07/01/12 Ramón Bolaños, MollyD [address] [place] [phone] Pharmacist Internal Medicine 11/18/23 documented as of this encounter
--- OUTSIDE RECORDS SUMMARY | 2025-01-02 11:56 | XMS_ITS | Encounter Summary ---
Author Organization [employer] Address [address] [facility] 7t [place] [address] Care Team Providers Care Director Security Management Name Role Phone Bridgette Gandhi MD Primary Care Provider [phone] Ramón Bolaños PharmD Unavailable [phone] Reason for Visit * Reason Comments Med Refill Encounter Details Date Type Department Care Team (Late st Contact Info) Description 06/07/2023 Refill [facility] [address] [place], [place] [phone] Bridgette Gandhi MD 230 [place], [place] [phone] Social History Tobacco Use Types Packs/Day Years [...] Description 01/06/2025 10:00 AM EDT Office Visit [facility] ADULT DENTAL [address] [place] [address] Lydia Mac [address] [place] [address] 01/31/2025 11:15 AM EDT Office Visit [facility] MEDICINE [address] [place] [address] Bridgette Gandhi MD [address] [place] [phone] documented as of this encounter Visit Diagnoses Not on filedocumented in this encounter Additional Health Concerns Assessment Noted Time PHQ-9 Depression Total Score: 5 09/11/19 23 10:25 AM EST documented as of this encounter Care Teams Director Security Management Relationship Specialty Start Date End Date Bridgette Gandhi MD [address] [place] [phone] PCP - General Family Medicine 07/01/12 Ramón Bolaños, PharmD [address] [place] [phone] Pharmacist Internal Medicine 11/18/23 documented as of this encounter
--- OUTSIDE RECORDS SUMMARY | 2025-01-02 11:56 | XMS_ITS ---
Author Name Katja Lang NP Address [address] [place] [address] Phone [phone] [facility] Care Team Providers Care Spanish Tutor Name Role Phone Katja Lang Unavailable [phone] Unavailable Unavailable Unavailable Unavailable Unavailable Unavailable Reason [...] 2022-03-10 No Data Available [facility] [place] 0.65 % Solution USE 1-2 SPRAYS IN [...] Active 2022-09-30 N/A Other problems related to [facility] and other health care Active 2023-10-27 [...] (do not use for phone, instead use 28250-84) [facility] Type 2 diabetes mellitus wit h diabetic neuropathy, unspecifiedHypertensive heart disease with heart failureHeart failure, unspecifiedMorbid (severe) obesity due to excess caloriesMajor depressive disorder, recurrent, mildChronic obstructive pulmonary disease, unspecifiedOther amnesiaUnspecified glaucomaBody mass index (bmi) 39.0-39.9, adult New patient,40-59min; chronic exacerbation, 2 stable chronic or 1 acute illness add add modifier 95 for video (do not use for phone, instead use 37885-11) [facility] [place]2022 New patient,40-59min; chronic exacerbation, 2 stable chronic or 1 acute illness add add modifier 95 for video (do not use for phone, instead use 25561-02) [facility] [place] New patient,40-59min; chronic exacerbation, 2 stable chronic or 1 acute illness add add modifier 95 for video (do not use for phone, instead use 72578-29) [facility] [place]/20[place] New patient,40-59min; chronic exacerbation, 2 stable chronic or 1 acute illness add add modifier 95 for video (do not use for phone, instead use 84926-79) [facility] [place] 10[place]/20[place] New patient,40-59min; chronic exacerbation, 2 stable chronic or 1 acute illness add add modifier 95 for video (do not use for phone, instead use 98580-26) [facility] [place] 10[place]/20[place] New patient,40-59min; chronic exacerbation, 2 stable chronic or 1 acute illness add add modifier 95 for video (do not use for phone, instead use 71902-07) [facility] [place] 10[place]/2022 New patient,40-59min; chronic exacerbation, 2 stable chronic or 1 acute illness add add modifier 95 for video (do not use for phone, instead use 14332-71) [facility] [place] 10/[place]/2022 New patient,40-59min; chronic exacerbation, 2 stable chronic or 1 acute illness add add modifier 95 for video (do not use for phone, instead use 80231-68) [facility] [place] 10/[place]/2022 No Data Available [facility] [place] 10/[place]/2022 Type 2 diabetes mellitus wit h diabetic neuropathy, unspecifiedMorbid (severe) obesity due to excess caloriesMajor depressive disorder, recurrent, mildHeart failure, unspecifiedHypertensive heart disease with heart failureChronic obstructive pulmonary disease, unspecifiedOther amnesiaUnspecified glaucoma No Data Available [facility] [place] 10/29/2022 No Data Available [facility] [place] 10/[place]/2022 Estab. patient 30-39min; chronic exacerbation, 2 stable chronic or 1 acute illness add add modifier 95 for video, (do not use for phone, instead use 42246-33) [facility] [place] 10/[place]/2023 Type 2 diabetes mellitus wit h [...] (do not use for phone, instead use 82711-82) [facility] [place] 10/[place]/2023 Estab. patient 30-39min; chronic exacerbation, 2 stable chronic or 1 acute illness add add modifier 95 for video, (do not use for phone, instead use 36033-70) [facility] [place] 10[place]/2023 Estab. patient 30-39min; chronic exacerbation, 2 stable chronic or 1 acute illness add add modifier 95 for video, (do not use for phone, instead use 78418-80) [facility] [place] 10[place]/2023 Estab. patient 30-39min; chronic exacerbation, 2 stable chronic or 1 acute illness add add modifier 95 for video, (do not use for phone, instead use 71651-57) [facility] [place] 10[place]/2023 Estab. patient 30-39min; chronic exacerbation, 2 stable chronic or 1 acute illness add add modifier 95 for video, (do not use for phone, instead use 96417-29) [facility] [place] 10/[place]/2023 Estab. patient 30-39min; chronic exacerbation, 2 stable chronic or 1 acute illness add add modifier 95 for video, (do not use for phone, instead use 85089-62) [facility] [place] 10/[place]/2023 Estab. patient 30-39min; chronic exacerbation, 2 stable chronic or 1 acute illness add add modifier 95 for video, (do not use for phone, instead use 39480-03) [facility] [place] 10/[place]/2023 Estab. patient 30-39min; chronic exacerbation, 2 stable chronic or 1 acute illness add add modifier 95 for video, (do not use for phone, instead use 95875-02) [facility] [place] 10[place]/2023 Estab. patient 30-39min; chronic exacerbation, 2 stable chronic or 1 acute illness add add modifier 95 for video, (do not use for phone, instead use 18757-03) [facility] Estab. patient 20-29min; 1 stable chronic or 2 minor; add add modifier 95 for video, modifier 93 for phone [facility] [place]2024 Other chronic painOther prob lems related to medical facilities and other health care Estab. patient 20-29min; 1 stable chronic or 2 minor; add add modifier 95 for video, modifier 93 for phone [facility] [place] 05/[place]/20[place] Estab. patient 20-29min; 1 stable chronic or 2 minor; add add modifier 95 for video, modifier 93 for phone [facility] [place] 05/[place]/20[place] Estab. patient 20-29min; 1 stable chronic or 2 minor; add add modifier 95 for video, modifier 93 for phone [facility] [place] 05/30/2024 Estab. patient 20-29min; 1 stable chronic or 2 minor; add add modifier 95 for video, modifier 93 for phone [facility] [place] 05/[place]/20[place] Estab. patient 20-29min; 1 stable chronic or 2 minor; add add modifier 95 for video, modifier 93 for phone [facility] [place] 05/30/20[place] Estab. patient 20-29min; 1 stable chronic or 2 minor; add add modifier 95 for video, modifier 93 for phone [facility] [place] 05/[place]/2024 No Data Available [facility] [place] 07[place]2024 Hypertensive heart disease w ith heart failureHeart failure, unspecifiedSecondary hyperaldosteronismChronic obstructive pulmonary disease, unspecifiedUnspecified glaucomaOther problems related to medical facilities and other health careOther chronic pain No Data Available [facility] [place]2024 No Data Available [facility] [place] 07[place]2024 Vital Signs Date of [...] Current Smoking Status Current every day smoker 2025-01-02 Sex Male History of Procedures Procedures Service Procedure code Service date Servicing provider Phone# New patient,40-59min; chronic exacerbation, 2 stable chronic or 1 acute illness add add modifier 95 for video (do not use for phone, instead use 13195-59) [id number] 2022-10-28 No Data Available No Data Availa [...] No Data Nancy ilable No Data Available [id number] 2022-10-29 No Data Available No Data Available [...] (do not use for phone, instead use 75235-58) [id number] 2023-10-27 No Data Available No Data Availa [...] 95 for video, modifier 93 for phone [id number] 2024-05-30 No Data Available No Data Availa [...] le No Data Available No Data Available [id number] 2024-07-25 No Data Available No Data Available [...] Patient Education to avoid future hospitalization[facility].Chronic painOther problems [...] persistent NOLEN< blurry vision)10/27/2023:Follows up with PCP, [facility] Director, last visit 2 weeks ago.BP: 119/68. Reported [...] ophthalmology every 3-6 months 10/27/2023:Follows up with Claims Assistant.Continues using: Latanoprost drops.Denies any acute complaint.Reports chronic [...] (no modifier 95)Pain Assessment - Pain Documented (5414F)Continue to see PCP. Follow-up with [facility] as needed for any acute or disease education needs that may arise 09/03.StableLisinopril, Furosemide Avg BP: 120s/60sContinue taking medications as prescribed, continue monitoring BP, discussed low salt diet, exercise as tolerable, and lifestyle interventions. Contact us if developing emergent HTN s/sx (eg. palpitations, persistent NOLEN< blurry vision)07/25/2024:Follows up with PCP, [facility] Director, last visit 2 weeks ago.Taking: amLODIPine Besylate [...] ophthalmology every 3-6 months 07/25/2024:Follows up with Claims Assistant.Continues using: Latanoprost drops.Denies any acute complaint.PAIN CONTINGENCY [...] likely not be covered by health plan. [facility] cc info sent to member and X [facility] PHYSICIAN. Advised to f/u with recliner request during [...]
--- OUTSIDE RECORDS SUMMARY | 2025-01-02 11:56 | XMS_ITS | Encounter Summary ---
Author Organization [employer] Address [address] [facility] [address] [place] [address] Care Team Providers Care Workplace Trainer And Assessor Name Role Phone Bridgette Gandhi MD Primary Care Provider [phone] Ramón Bolaños PharmD Unavailable [phone] Encounter Details Date Type Department Care Team (Late st Contact Info) Description 06/26/2023 Abstract [facility] ADULT DENTAL [address] [place], [place] [phone] Amarjit Foster DDS [address] [place], [place] [phone] Social History Tobacco Use Types Packs/Day Years [...] Description 01/06/2025 10:00 AM EDT Office Visit [facility] ADULT DENTAL [address] [place] [address] Lydia Mac [address] [place] [address] 01/31/2025 11:15 AM EDT Office Visit [facility] MEDICINE [address] [place] [address] Bridgette Gandhi MD 230 [place] [address] documented as of this encounter Visit Diagnoses Not on filedocumented in this encounter Additional Health Concerns Assessment Noted Time PHQ-9 Depression Total Score: 5 09/11/19 23 10:25 AM EST documented as of this encounter Care Teams Workplace Trainer And Assessor Relationship Specialty Start Date End Date Bridgette Gandhi MD [address] [place] [address] PCP - General Family Medicine 07/01/12 Ramón Bolaños, MollyD [address] [place] [phone] Pharmacist Internal Medicine 11/18/23 documented as of this encounter
== END 2025-01-02 12:03 | disposition home or self-care (01) ==
LOC: HO.HUSH 11:12
PROVIDERS: PCP Family Medicine; Visit Provider Urology
DX: Z13.9 Encounter for screening, unspecified (principal)

== ENCOUNTER → 2025-01-02 11:12 | Outpatient (BNVA) | payer OTHER, SELFPAY | PROVIDERS: PCP Family Medicine; Visit Provider Urology | DX: N40.1 Benign prostatic hyperplasia with lower urinary tract symptoms (principal); N13.8 Other obstructive and reflux uropathy; Z79.899 Other long term (current) drug therapy | CPT/HCPCS: 51798; 81003; 99212 ==

== ENCOUNTER 2025-02-28 06:20 | Outpatient (REF) | payer OTHER, SELFPAY ==
--- NOTE | ~2025-02-28 | FL_ITS ---
EXAMINATION: FL GUIDANCE ONLY HISTORY: M54.16 - Radiculopathy, lumbar region COMPARISON: None available. TECHNIQUE: Fluoroscopy time: 0.2 minutes. Cumulative Dose: 8.80 mGy. DAP: 0.101 mGym2 Images: 2. FINDINGS: Fluoroscopic spot films of the lumbar spine in the AP projection demonstrate a needle and contrast material in the region of a left-sided facet joint. FL/FL guidance in treatment room IMPRESSION: Fluoroscopy during procedure. Please see procedure report for additional information. Electronically signed by: Rich Guevara MD 02/28/2025 10:27 AM EDT
--- OUTSIDE RECORDS SUMMARY | 2025-02-28 06:22 | XMS_ITS ---
Author Name Montiel AIRLINE TICKET AGENT,CHICK GRADER,FN P,HEAD UP OPERATOR HELPER, Lydia Address [address] [place] [address] Phone [phone] [facility] Care Team Providers Care Poultry Hanger Name Role Phone Lydia Montiel Unavailable [phone] Unavailable Unavailable Unavailable Unavailable Unavailable Unavailable Reason [...] 2022-03-10 No Data Available [place] [facility] [place] 0.65 % Solution USE 1-2 SPRAYS IN [...] List Problem Status Onset Date Resolved Date Synopsis BPH (benign prostatic hyperplasia) Active 2023-10-27 N/A Follows up with PCP.Taking: Finasteride 5 mg Tab TAKE 1 TABLET BY MOUTH EVERY MORNINGDoing well on current treatment.Denies any acute complaint.Continue treatment as prescribed, follow up as instructed.Contact CB 24/7 as needed. Memory impairmentAlzheimer's disease with early onset Active 2022-10-28 N/A Feroz eports leaving refrigerator openDiscussed safety precaution and monitoring behavior, MMSE routinely, and DEONNA Consult for memory evaluation ordered10/29 referred to PCP/ Neuro for mini mentalhe is currently aox4 states he is forgetful at times but it is no consistent 10/27/2023:Stable.Follows up with PCP.Not taking any medications. Denies any acute complaint. MDD (major depressive disorder), recurrent episode, mild Active 2022-09-30 N/A WorseningPatient reports worsening depressionDenies current SI/HI but reports [...] follow up as instructed.Contact CB 24/7 as needed. Morbid (severe) obesity due to excess calories Active 2022-09-30 N/A BMI: 39.22Dis cussed diet, exercise, and lifestyle modifications to assist with losing weight to achieve normal BMI. Continue f/u care and monitoring with PC every 3-6 months 10/27/2023:BMI: 36.15 DMWeight management by diet modification discussed with patient.Low fat, low carb, low sugar diet.Stay physically active as tolerated.Follow up with PCP. Contact CB 24/7 as needed. Type 2 diabetes mellitus with diabetic neuropathy, unspecifiedType 2 diabetes mellitus with hyperlipidemia Active 2022-09-30 N/A StableMetforminA vg B-120A1c: 6.3% on 1/26/23Continue taking medication, low carb diet, exercise as [...] Follow up with PCP as scheduled.Contact CB 24/ as needed.05/30/2024 patient states he is controlled Other problems related to medical facilities and other health care Active 2023-10-27 N/A PAIN CONTIN GENCY PLANLast updated: 05/30/2024Member to call for the following symptoms: Fall / Increased pain/ Increased pain meds/ Joint swellingPlanned intervention: Prednisone 50mg daily for 5 days/ Apply heat to affected area/ Apply ice to affected area Hypertensive heart disease with heart failureSecondary hyperaldosteronism Active 2022-10-14 N/A StableLisinop ril, Furosemide Avg BP: 120s/60sContinue taking medications as prescribed, continue monitoring BP, discussed low salt diet, exercise as tolerable, and lifestyle interventions. Contact us if developing emergent HTN s/sx (eg. palpitations, persistent NOLEN< blurry vision)07/25/2024:Follows up with PCP, Food Service Team Member, last visit 2 weeks ago.Taking: amLODIPine Besylate [...] low Sodium diet. Contact CB 24/ as needed. COPD (chronic obstructive pulmonary disease) Active 2022-10-14 N/A Reports inter mittent SOB with exertionAlbuterol, AdvairDenies recent exacerbated episodes [...] acute respiratory symptoms. Contact CB 09/03 as needed. Glaucoma, right eye Active 2022-10-28 N/A Stabl eLatanoprost ggtsContinue using medicated eye drops, monitor for acute changes or worsening vision, and continue f/u care and monitoring with PCP and ophthalmology every 3-6 months 07/25/2024:Follows up with Nuclear Security Officer.Continues using: Latanoprost drops.Denies any acute complaint. Chronic pain Active 2023-10-27 N/A Reports bariatric nurse falguni bilateral hip pain. Takes Tylenol as needed.Uses: [...] not be covered by health plan. [facility] cc info sent to member and VP PRODUCT. Advised to f/u with recliner request during 07/27/24 f/u visit with PCP, as may need PT/OT eval. Encounters Encounters Type Facility Date of Service Diagnosis/Co mplaint New patient,40-59min; chronic exacerbation, 2 stable chronic or 1 acute illness add add modifier 95 for video (do not use for phone, instead use 61282-30) [facility] [place] 10[place]28/2022 Type 2 diabetes mellitus wit h diabetic neuropathy, unspecifiedHypertensive heart disease with heart failureHeart failure, unspecifiedMorbid (severe) obesity due to excess caloriesMajor depressive disorder, recurrent, mildChronic obstructive pulmonary disease, unspecifiedOther amnesiaUnspecified glaucomaBody mass index (bmi) 39.0-39.9, adult New patient,40-59min; chronic exacerbation, 2 stable chronic or 1 acute illness add add modifier 95 for video (do not use for phone, instead use 32243-52) [facility] [place]/2022 New patient,40-59min; chronic exacerbation, 2 stable chronic or 1 acute illness add add modifier 95 for video (do not use for phone, instead use 97960-24) [facility] New patient,40-59min; chronic exacerbation, 2 stable chronic or 1 acute illness add add modifier 95 for video (do not use for phone, instead use 07802-69) [facility] [place] New patient,40-59min; chronic exacerbation, 2 stable chronic or 1 acute illness add add modifier 95 for video (do not use for phone, instead use 77794-58) [facility] [place]20[place] New patient,40-59min; chronic exacerbation, 2 stable chronic or 1 acute illness add add modifier 95 for video (do not use for phone, instead use 37874-86) [facility] [place]2022 New patient,40-59min; chronic exacerbation, 2 stable chronic or 1 acute illness add add modifier 95 for video (do not use for phone, instead use 82694-35) [facility] [place]2022 New patient,40-59min; chronic exacerbation, 2 stable chronic or 1 acute illness add add modifier 95 for video (do not use for phone, instead use 23804-60) [facility] [place]2022 New patient,40-59min; chronic exacerbation, 2 stable chronic or 1 acute illness add add modifier 95 for video (do not use for phone, instead use 49370-08) [facility] [place] 10[place]/[address] [facility] [place]/2022 Type 2 diabetes mellitus wit h diabetic neuropathy, unspecifiedMorbid (severe) obesity due to excess caloriesMajor depressive disorder, recurrent, mildHeart failure, unspecifiedHypertensive heart disease with heart failureChronic obstructive pulmonary disease, unspecifiedOther amnesiaUnspecified glaucoma No Data Available [facility] [place] 10/29/2022 No Data Available [facility] ([place] 10[place]29/2022 Estab. patient 30-39min; chronic exacerbation, 2 stable chronic or 1 acute illness add add modifier 95 for video, (do not use for phone, instead use 79663-99) [facility] [place] 10/27/2023 Type 2 diabetes mellitus wit h [...] (do not use for phone, instead use 15003-95) [facility] [place] 10[place]/2023 Estab. patient 30-39min; chronic exacerbation, 2 stable chronic or 1 acute illness add add modifier 95 for video, (do not use for phone, instead use 76688-19) [facility] [place] 10[place]/2023 Estab. patient 30-39min; chronic exacerbation, 2 stable chronic or 1 acute illness add add modifier 95 for video, (do not use for phone, instead use 11128-08) [facility] ([place] 10/27/2023 Estab. patient 30-39min; chronic exacerbation, 2 stable chronic or 1 acute illness add add modifier 95 for video, (do not use for phone, instead use 27785-37) [facility] [place] 10/[place]/2023 Estab. patient 30-39min; chronic exacerbation, 2 stable chronic or 1 acute illness add add modifier 95 for video, (do not use for phone, instead use 17249-22) [facility] [place] 10[place]/20[place] Estab. patient 30-39min; chronic exacerbation, 2 stable chronic or 1 acute illness add add modifier 95 for video, (do not use for phone, instead use 29617-21) [facility] [place]20[place] Estab. patient 30-39min; chronic exacerbation, 2 stable chronic or 1 acute illness add add modifier 95 for video, (do not use for phone, instead use 51164-11) [facility] [place]20[place] Estab. patient 30-39min; chronic exacerbation, 2 stable chronic or 1 acute illness add add modifier 95 for video, (do not use for phone, instead use 60083-76) [facility] [place]20[place] Estab. patient 30-39min; chronic exacerbation, 2 stable chronic or 1 acute illness add add modifier 95 for video, (do not use for phone, instead use 58304-55) [facility] [place]/20[place] Estab. patient 20-29min; 1 stable chronic or 2 minor; add add modifier 95 for video, modifier [address] [facility] [place] 05/30/2024 Other chronic painOther prob lems related to medical facilities and other health care Estab. patient 20-29min; 1 stable chronic or 2 minor; add add modifier 95 for video, modifier [address] [facility] [place]/20[place] Estab. patient 20-29min; 1 stable chronic or 2 minor; add add modifier 95 for video, modifier [address] [facility] [place]/20[place] Estab. patient 20-29min; 1 stable chronic or 2 minor; add add modifier 95 for video, modifier [address] [facility] [place]/20[place] Estab. patient 20-29min; 1 stable chronic or 2 minor; add add modifier 95 for video, modifier [address] [facility] [place]/20[place] Estab. patient 20-29min; 1 stable chronic or 2 minor; add add modifier 95 for video, modifier [address] [facility] [place] 05/30/20[place] Estab. patient 20-29min; 1 stable chronic or 2 minor; add add modifier 95 for video, modifier [address] [facility] [place] 05/[place]/[address] [facility] [place] 07/25/2024 Hypertensive heart disease w ith heart failureHeart failure, unspecifiedSecondary hyperaldosteronismChronic obstructive pulmonary disease, unspecifiedUnspecified glaucomaOther problems related to medical facilities and other health careOther chronic pain No Data Available [facility] [place] 07/25/[address] [facility] [place] 07/[place]/2024 Vital Signs Date of Collection Vitals [...] Current Smoking Status Current every day smoker 2025-02-28 Sex Male History of Procedures Procedures Service Procedure code Service date Servicing provider Phone# New patient,40-59min; chronic exacerbation, 2 stable chronic or 1 acute illness add add modifier 95 for video (do not use for phone, instead use 55078-36) [id number] 2022-10-28 No Data Available No Data Availa [...] No Data Nancy ilable No Data Available [id number] 2022-10-29 No Data Available No Data Available [...] (do not use for phone, instead use 68985-69) [id number] 2023-10-27 No Data Available No Data Availa ble Advance care planning discussed and documented advance care plan or surrogate decision-maker was [...] 95 for video, modifier 93 for phone [id number] 2024-05-30 No Data Available No Data Availa ble Medications prescribed in hospital were reviewed and reconciled against what they were taking prior to admission during today's visit. (1111F) 1111F 2024-05-30 No Data Available No Data Availa ble Advance care planning discussed and documented advance care plan or surrogate decision-maker was [...] le No Data Available No Data Available [id number] 2024-07-25 No Data Available No Data Available [...] Toileting: Needs Assistance 2023-10-27 Transferring: Needs Assistance 2024-03-1 2 Mental Status Status Date AAOX 3 [...] modifier 95Advance care planning discussed and documented advance care plan or surrogate decision-maker was [...] persistent NOLEN< blurry vision)10/27/2023:Follows up with PCP, Food Service Team Member, last visit 2 weeks ago.BP: 119/68. Reported [...] acute respiratory symptoms. Contact CB 24/7 as needed.StableReports leaving refrigerator openDiscussed safety precaution [...] ophthalmology every 3-6 months 10/27/2023:Follows up with Nuclear Security Officer.Continues using: Latanoprost drops.Denies any acute complaint.Reports chronic [...] modifier 95Advance care planning discussed and documented advance care plan or surrogate decision-maker was [...] 05/30/2024Member to call for the following symptoms: Fall / Increased pain/ Increased pain meds/ Joint swellingPlanned intervention: Prednisone 50mg daily for 5 days/ Apply heat to affected area/ Apply ice to affected area 2024-07-25 07:16:41 Phone (patient, pare nt, or guardian); 5-10 minutes of medical discussion (no modifier 95)Pain Assessment - Pain Documented (3305F)Continue to see PCP. Follow-up with [facility] as needed for any acute or disease education needs that may arise 09/03.StableLisinopril, Furosemide Avg BP: 120s/60sContinue taking medications as prescribed, continue monitoring BP, discussed low salt diet, exercise as tolerable, and lifestyle interventions. Contact us if developing emergent HTN s/sx (eg. palpitations, persistent NOLEN< blurry vision)07/25/2024:Follows up with PCP, Food Service Team Member, last visit 2 weeks ago.Taking: amLODIPine Besylate [...] ophthalmology every 3-6 months 07/25/2024:Follows up with Nuclear Security Officer.Continues using: Latanoprost drops.Denies any acute complaint.PAIN CONTINGENCY PLANLast updated: 05/30/2024Member to call for the following symptoms: Fall / Increased pain/ Increased pain meds/ Joint swellingPlanned [...] not be covered by health plan. [facility] cc info sent to member and VP PRODUCT. Advised to f/u with recliner request during [...] with your PCP and specialists. Call CB / if you have questions or concerns. Discussed how to contact [facility] via phone or tablet. CB /7 phone number provided. 2024-05-30 At least 50% [...] week. 2024-07-25 PCP f/u 07/27/24 2024-07-25 Senait DONAHUE
--- OUTSIDE RECORDS SUMMARY | 2025-02-28 06:22 | XMS_ITS | Encounter Summary ---
Author Organization [employer] Address [address] [place] [address] Care Team Providers Care Supervisor Concrete Pipe Plant Name Role Phone Bridgette Gandhi MD Primary Care Provider Ramón Bolaños PharmD Unavailable [phone] Reason for Visit * Reason Comments Med Refill Encounter Details Date Type Department Care Team (Late st Contact Info) Description 10/22/2022 Refill [facility] MEDICINE [address] [place] [address] Tamela Drake MD [address] [place] [address] Dyslipidemia (Primary Dx) Social History Tobacco Use [...] Care Team (Late st Contact Info) Description 08/09/2025 1:00 PM EST Office Visit [facility] ADULT DENTAL [address] [place] [address] Lydia Mac [address] [place] [address] documented as of this encounter Visit Diagnoses Diagnosis Dyslipidemia- Primary Other and unspecified hyperlipidemia documented in this encounter Additional Health Concerns Assessment Noted Time PHQ-9 Depression Total Score: 5 09/11/19 23 10:25 AM EST documented as of this encounter Care Teams Supervisor Concrete Pipe Plant Relationship Specialty Start Date End Date Bridgette Gandhi MD [address] [place] [address] PCP - General Family Medicine 07/01/12 Ramón Bolaños, MollyD [address] [place] [id number] Pharmacist Internal Medicine 11/18/23 documented as of this encounter
--- OUTSIDE RECORDS SUMMARY | 2025-02-28 06:22 | XMS_ITS | Clinical Summary ---
Author Organization [facility] [address] [place] [address] Phone Care Team Providers Care Hand Packer Name Role Phone Bridgette Gandhi MD Primary Care Provider [phone] Allergies Active Allergy Reactions Criticality Noted Date [...] Encounters Date Type Department Care Team Description 02/02/2025 1:00 PM EDT Office Visit [facility] [address] [place] [address] Gómez Colunga MD Hypertension (Primary Dx); Type 2 diabetes mellitus without complication (HCC) 01/26/2025 Orders Only [facility] [address] [place] [address] Gómez Colunga MD Hypertension; Type 2 diabetes mellitus without complication [...] Sign Reading Time Taken Comments Blood Pressure 110/72 02/02/2025 12:46 PM EDT Pulse 75 02/02/2025 12:46 PM EDT Temperature - - Respiratory Rate - - Oxygen Saturation 97% 02/02/2025 12:46 PM EDT Inhaled Oxygen Concentration - - Weight 111 kg (244 lb) 02/02/2025 12:46 PM EDT Height - - Body Mass Index - - Plan of Treatment Upcoming Encounters Date Type Department Care Team (Late st Contact Info) Description 08/03/2025 1:00 PM EST Office Visit [facility] [address] [place] [address] Gómez Colunga MD [address] [facility] [address] [place] [id number] Health Maintenance Due Date Last Done Comments Diabetes: Ophthalmology Exam 09/17/2020 Diabetes: Pedal Pulse Checked 09/17/2020 Diabetes: Sensory Foot Exam 09/17/2020 Diabetes: Visual Foot Exam 09/17/2020 Influenza Vaccine (#1) 2025 0, 06/13/2019, 05/24/2018, Additional history exists Diabetes: Hemoglobin A1C 05/03/2025 025, 11/01/2024, 04/07/2024, Additional history exists Pneumococcal Vaccine: 50+ Years Completed 04/13/2015, 08/08/2013, 05/07/2006 Pneumococcal Vaccine: Peds (0 to 5 Years) and At-Risk Patients (6 to 49 Years) Discontinued 04/13/2015, 08/08/2013, 05/07/2006 Hepatitis B Vaccine Aged Out 09/28/2017, 06/29/2017, 03/24/2017 No longer eligible based on patient's age to complete this topic Insurance [facility] ([id number]) [facility] ([id number]) Care Teams Hand Packer Relationship Specialty Start Date End Date Bridgette Gandhi MD [address] [place] [id number] PCP - General 08/27/20
== END 2025-02-28 06:21 | disposition home or self-care (01) ==
LOC: CF 06:20
PROVIDERS: Visit Provider Anesthesiology
DX: M51.16 Intervertebral disc disorders with radiculopathy, lumbar region (principal)
CPT/HCPCS: 64483; J2003; J3301; Q9967

== ENCOUNTER 2025-02-28 07:17 | Outpatient (AMB) | payer OTHER, SELFPAY ==
[2025-02-28 07:32] VITALS: BP 160/77; PULSE 59; RESP 18; O2SAT 99; BMI 39.1
--- NOTE | 2025-02-28 07:32 | MHC.OFFVIS ---
Vital Signs 02/28/25 07:32 02/28/25 08:16 Height 5 ft 6 in Weight 242 lb BMI 39.1 BP 160/77 H 166/73 H Blood Pressure Location Lt brachial Lt brachial Position Sitting Sitting Respiration 18 20 Pulse 59 65 Pulse Source Pulse Oximeter Pulse Oximeter Pulse Oximetry (%) 99 97 Oxygen Delivery Method Room Air Room Air Intake Visit Reasons: LEFT L3, L4 TFESI Sludge Control Operator Required: Yes Sludge Control Operator Name: family Allergies Penicillins Allergy (Intermediate, Verified 01/02/25 11:18) RASH Carbapenems Allergy (Unknown, Verified 01/02/25 11:18) Unknown Cephalosporins Allergy (Unknown, Verified 01/02/25 11:18) Unknown enviormental Allergy (Severe, Uncoded 09/26/24 13:07) coughing and sneezing PFSH Medical History 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 Father No problems noted. Brother CAD (coronary artery disease) Sister Alzheimer disease Social History Household Members: Other Household Members Other:: 2 roomates Housing: Apartment Are you a primary home health care respiratory therapist to a significant other at home: No Do you presently have visiting nurse or other home services: Yes Alcohol intake: never Patient Tobacco Use Status: Former Tobacco user Cigarette Packs Per Day: 0.5 Cigarettes Per Day: 10.0 Years Smoked: 60 +/- , quit- Oct 12 2023 Physical Exam Vital Signs: Last Vital Signs Pulse 65 02/28/25 08:16 Resp 20 02/28/25 08:16 BP 166/73 H 02/28/25 08:16 Pulse Ox 97 02/28/25 08:16 Oxygen Delivery Method Room Air 02/28/25 08:16 BMI result Body Mass Index 39.1 Assessment & Plan Assessment & Plan (1) Lumbar radiculopathy: Code(s): M54.16 - Radiculopathy, lumbar region Category: Medical Plan: Left L3-L4 Transforaminal epidural steroid injection l. (2) Disc degeneration, lumbar: Code(s): M51.36 - Other intervertebral disc degeneration, lumbar region Category: Medical Plan Left L3-L4 Transforaminal epidural steroid injection Informed consent was thoroughly explained to the patient before the procedure. The patient came to the operating room. He was positioned prone on operating table with a pillow under her abdomen. Time-out was performed delineating correct site and side of the procedure, nature of the injection, name and date of of the patient. The lower back of the patient was prepped with ChloraPrep and draped with sterile utility towels. C-arm was brought over the operating field and sq picture of L3 vertebra was demonstrated on the screen. The left side was chosen as the side of the injection. Tilting machine ipsilateral to the left at the level of L3 the most prominent picture of the pedicle on the left was demonstrated on the screen. 3 mm below the most lowest point of the pedicle projection to the skin small amount of lidocaine 1% was injected to anesthetize the skin. After that 5 in 22 gauge Quincke point needle was inserted through the skin wheal and was advanced toward the L3-L4 foramina on anterior posterior, lateral and oblique views intermittently. When the needle entered foramina on AP view. When tip of the needle entered foramina projection on AP view injection of the contrast was performed demonstrating epidural and perineural spread of the contrast. After that injection of the treatment medicine 3 cc of preservative-free lidocaine 1% mixed with Kenalog 20 mg was injected into the foramina. No intrathecal and no intravascular spread of the contrast was noted. The needle was removed . Upon completion of the procedure needle was removed and sterile Band-Aid was applied. Patient tolerated the procedure well. Orders: Orders FL guidance in treatment room Today M54.16 - Radiculopathy, lumbar region Coding Level of Care Code Procedure Only Diagnoses Lumbar radiculopathy M54.16 Disc degeneration, lumbar M51.36
[2025-02-28 08:16] VITALS: BP 166/73; PULSE 65; RESP 20; O2SAT 97
== END 2025-02-28 08:46 | disposition home or self-care (01) ==
LOC: HO.PMCPRC 07:17
PROVIDERS: PCP Family Medicine; Visit Provider Anesthesiology
DX: M54.16 Radiculopathy, lumbar region (principal); M51.369 Other intervertebral disc degeneration, lumbar region without mention of lumbar back pain or lower extremity pain
CPT/HCPCS: 64483

== ENCOUNTER 2025-03-29 10:38 | Outpatient (AMB) | payer OTHER, SELFPAY ==
[2025-03-29 10:39] VITALS: BP 133/63; PULSE 84; RESP 16; O2SAT 96; BMI 38.7
--- NOTE | 2025-03-29 10:39 | A.OFFVIS_ITS ---
Vital Signs 03/29/25 10:39 Height 5 ft 6 in Weight 240 lb BMI 38.7 BP 133/63 Blood Pressure Location Lt brachial Position Sitting Respiration 16 Pulse 84 Pulse Source Pulse Oximeter Pulse Oximetry (%) 96 Oxygen Delivery Method Room Air Intake Visit Reasons: S/P LEFT L3- L4 TFESI Mutuel Machine Operator Required: Yes Mutuel Machine Operator Name: Mili Plunkett [id number] Allergies Penicillins Allergy (Intermediate, Verified 03/29/25 10:45) RASH Carbapenems Allergy (Unknown, Verified 03/29/25 10:45) Unknown Cephalosporins Allergy (Unknown, Verified 03/29/25 10:45) Unknown enviormental Allergy (Severe, Uncoded 09/26/24 13:07) coughing and sneezing HPI Comments Details: Visit completed with leveling machine operator Lizett #[id number] The patient is a 79-year-old male presenting with persistent left hip pain. The pain has been ongoing despite a left L3 L4 transforaminal epidural steroid injection performed one month ago. The patient rates the pain as 9 out of 10, indicating severe discomfort. He complains of severe pain to the left hip, tenderness to palpation, worse with rotation. Previous interventions have included physical therapy, ibuprofen, Tylenol, and the application of ice and heat. However, the patient experienced a burning sensation from the ice, limiting its use. The patient takes six Tylenol daily, distributed across morning, lunch, and evening doses. - Onset: Persistent pain despite recent intervention - Quality: Severe, rated 9/10 - Location: Left hip, radiating down the thigh - Exacerbating factors: Movement and palpation - Relieving factors: None effective - Affect: Pain is impacting daily activities and causing significant discomfort - Analgesia: Current use of Tylenol, 6 tablets daily; pain level remains at 9/10 - Adverse Effects: Burning sensation from ice application - Activities of Daily Living: Pain limits physical activity and comfort - Aberrant Drug Related Behaviors: None reported Prior: Mr. Piter Angel is in my office today after therapeutic transforaminal epidural steroid injection L3-L4 on the left. The procedure was performed on 07/12/2024. He reports excellent mobility excellent activities of daily living he reports today pain 3/10. He endorses ability to walk better his mobility improved. His pain before the procedure was 8/10. If this pain relief will last for up to 3 months we can repeat this procedure again. If this will be shorter than 5-6 weeks we would need to discuss other possibility of treating his pain with neuromodulation. Prior: he reports shock-like pain sensation in left more than right lower extremity. He was sent for MRI of the lumbar spine and results of the MRI dictated as below. I referred him for the consultation with neuro spine office and and they recommended to perform L3-L4 transforaminal epidural steroid injection for this patient on the left. Recently patient went for the hip x-ray. On the hip x-ray there was left hip with evidence of mild arthritis. If transforaminal epidural steroid injection will not work I will schedule him for intra-articular left hip injection. His most of the pain is the print in the projection of the iliotibial band. And although he relates this pain into his back the relation to the back pain is very vague. 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 Father No problems noted. Brother CAD (coronary artery disease) Sister Alzheimer disease Social History Household Members: Other Household Members Other:: 2 roomates Housing: Apartment Are you a primary respiratory care practitioner to a significant other at home: No Do you presently have visiting nurse or other home services: Yes Alcohol intake: never Patient Tobacco Use Status: Former Tobacco user Cigarette Packs Per Day: 0.5 Cigarettes Per Day: 10.0 Years Smoked: 60 +/- , quit- Oct 12 2023 Review of Systems Const Details: - Musculoskeletal: Reports persistent left hip pain, radiating down the left leg Physical Exam Exam Exam: General: awake, alert, oriented. Answers questions appropriately. Fully engaged in examination. Skin: warm, dry, intact HEENT: Normocephalic. Hearing intact. Cardiac: External chest normal in appearance. Respiratory: No cough, audible wheezing or stridor. Abdomen: without gross distension. MS: No obvious swelling or deformities. Able to transition from sit to stand unassisted. Ambulates with bilaterally normal heel strike and toe off Left hip: Tenderness to palpation, pain with internal/external rotation. Neurological: Oriented to person, place, time and situation. Thought process intact. No gait abnormalities appreciated. Psychiatric: Appropriate mood and affect. Good judgment and insight. Vital Signs: Last Vital Signs Pulse 84 03/29/25 10:39 Resp 16 03/29/25 10:39 BP 133/63 03/29/25 10:39 Pulse Ox 96 03/29/25 10:39 Oxygen Delivery Method Room Air 03/29/25 10:39 BMI result Body Mass Index 38.7 Results Reviewed Results Reviewed: 10/29/23 MR lumbar spine wo con FINDINGS: Motion degraded examination. STIR sequence is particularly motion degraded and near nondiagnostic. Within this limitation, no significant marrow edema is identified. Rightward curvature of the lumbar spine. No suspicious marrow signal or focal osseous lesion. T12 and L2 vertebral body hemangiomas. Mild right-sided type II endplate marrow signal changes at L5-S1 The vertebral body heights are maintained. Multilevel disc dessication and height loss. The conus medullaris terminates at the level of L1. The distal spinal cord is normal in appearance. The cauda equina nerve roots appear normal. No significant abnormalities of the paraspinal musculature. Limited evaluation of the intra-abdominal structures without significant abnormalities. Right renal cyst for which no further imaging follow-up is required. The abdominal aorta is of normal contour and caliber. SPINAL LEVELS: T12-L1: Shallow disc bulge. No significant spinal canal or neural foraminal narrowing L1-L2: No significant spinal canal or neuroforaminal narrowing. Shallow disc bulge and mild facet arthropathy. L2-L3: No significant spinal canal or neuroforaminal narrowing. L3-L4: Left greater than right facet arthropathy. Left eccentric disc osteophyte complex. Ligamentum flavum thickening. No significant central spinal canal stenosis. Stable mild right and moderate to severe left neural foraminal narrowing with impingement of the exiting left L3 nerve root. L4-L5: Facet arthropathy. Shallow disc bulge. No significant central spinal canal stenosis. Stable mild bilateral neural foraminal narrowing, left greater than right. L5-S1: Right greater than left facet arthropathy with right joint effusion. Right eccentric disc osteophyte complex. No significant central spinal canal stenosis. Stable severe right neural foraminal narrowing with impingement of the exiting right L5 nerve root and right subarticular zone narrowing with possible impingement of the traversing right S1 nerve root IMPRESSION: Rightward curvature of the lumbar spine and multilevel spondylosis as described above appears similar to MRI from 09/29/2022 without significant central spinal canal narrowing. Neural foraminal stenosis is worst and severe on the right at L5-S1 with impingement of the exiting right L5 nerve root and moderate to severe on the left at L3-L4 with impingement of the exiting left L3 nerve root. Assessment & Plan Assessment & Plan (1) Lumbar radiculopathy: Code(s): M54.16 - Radiculopathy, lumbar region Category: Medical (2) Disc degeneration, lumbar: Code(s): M51.36 - Other intervertebral disc degeneration, lumbar region Category: Medical (3) Left hip pain: Code(s): M25.552 - Pain in left hip Category: Medical Plan Patient reports no improvement after recent transforaminal epidural steroid injection. Endorses significant discomfort in the left hip. The plan includes obtaining insurance approval for an injection into the hip joint to address the persistent pain. Once approved, the patient will be contacted to schedule the procedure. Will schedule for fluoroscopy guided left intra-articular hip injection with local anesthetic. Patient was informed and verbally consented to the use of an ambient scribe for clinic note documentation during this visit. Patient Instructions: - Await contact for scheduling the hip joint injection once insurance approval is obtained. Coding Level of Care Code Est Pt Level 3 (27583) Complex EM visit Add On G2211 Diagnoses Lumbar radiculopathy M54.16 Disc degeneration, lumbar M51.36 Left hip pain M25.552
--- OUTSIDE RECORDS SUMMARY | 2025-03-29 11:26 | XMS_ITS ---
Author Name Montiel PROC TECH,OUTPATIENT SERVICES DIRECTOR,FN P,GED INSTRUCTOR, [place] Address [address] [place] [address] Phone [phone] [facility] Care Team Providers Care Legal Administrative Assistant Name Role Phone Lydia Montiel Unavailable [phone] Unavailable Unavailable Unavailable Unavailable Unavailable Unavailable Reason [...] 2022-03-10 No Data Available Deep Sea Nasal [place] 0.65 % Solution USE 1-2 SPRAYS IN [...] persistent NOLEN< blurry vision)07/25/2024:Follows up with PCP, Labor Operator, last visit 2 weeks ago.Taking: amLODIPine Besylate [...] ophthalmology every 3-6 months 07/25/2024:Follows up with Trip Motor Operator.Continues using: Latanoprost drops.Denies any acute complaint. Chronic pain Active 2023-10-27 N/A Reports endless bed drum sander falguni bilateral hip pain. Takes Tylenol as [...] likely not be covered by health plan. [facility] cc info sent to member and [employer]. Advised to f/u with recliner request during 07/27/24 f/u visit with PCP, as may need PT/OT eval. Encounters Encounters Type Facility Date of Service Diagnosis/Co mplaint New patient,40-59min; chronic exacerbation, 2 stable chronic or 1 acute illness add add modifier 95 for video (do not use for phone, instead use 79040-86) [facility] ([place]) 10[place]28/2022 Type [...] (do not use for phone, instead use 48283-95) [facility] [place] ([place]) 10/28/2022 New patient,40-59min; chronic exacerbation, 2 stable chronic or 1 acute illness add add modifier 95 for video (do not use for phone, instead use 09499-91) [facility] [place]2022 New patient,40-59min; chronic exacerbation, 2 stable chronic or 1 acute illness add add modifier 95 for video (do not use for phone, instead use 30036-74) [facility] [place] 10[place]/2022 New patient,40-59min; chronic exacerbation, 2 stable chronic or 1 acute illness add add modifier 95 for video (do not use for phone, instead use 76009-02) [facility] [place]/2022 New patient,40-59min; chronic exacerbation, 2 stable chronic or 1 acute illness add add modifier 95 for video (do not use for phone, instead use 71688-04) [facility] [place]/2022 New patient,40-59min; chronic exacerbation, 2 stable chronic or 1 acute illness add add modifier 95 for video (do not use for phone, instead use 92599-99) [facility] [place] 10[place]/2022 New patient,40-59min; chronic exacerbation, 2 stable chronic or 1 acute illness add add modifier 95 for video (do not use for phone, instead use 11451-65) [facility] [place] 10[place]/2022 New patient,40-59min; chronic exacerbation, 2 stable chronic or 1 acute illness add add modifier 95 for video (do not use for phone, instead use 92247-22) [facility] [place] 10[place]/2022 No Data Available [facility] [place] 10[place]29/2022 Type 2 diabetes mellitus wit h diabetic neuropathy, unspecifiedMorbid (severe) obesity due to excess caloriesMajor depressive disorder, recurrent, mildHeart failure, unspecifiedHypertensive heart disease with heart failureChronic obstructive pulmonary disease, unspecifiedOther amnesiaUnspecified glaucoma No Data Available [facility] [place] 10[place]/2022 No Data Available [facility] ([place]29/2022 Estab. patient 30-39min; chronic exacerbation, 2 stable chronic or 1 acute illness add add modifier 95 for video, (do not use for phone, instead use 97159-23) [facility] [place]/27/2023 Type 2 diabetes mellitus wit h [...] (do not use for phone, instead use 18991-51) [facility] [place] 10[place]27/2023 Estab. patient 30-39min; chronic exacerbation, 2 stable chronic or 1 acute illness add add modifier 95 for video, (do not use for phone, instead use 55620-35) [facility] [place] 10/27/2023 Estab. patient 30-39min; chronic exacerbation, 2 stable chronic or 1 acute illness add add modifier 95 for video, (do not use for phone, instead use 37027-35) [facility] ([place] 10/27/2023 Estab. patient 30-39min; chronic exacerbation, 2 stable chronic or 1 acute illness add add modifier 95 for video, (do not use for phone, instead use 39181-76) [facility] [place] 10/27/2023 Estab. patient 30-39min; chronic exacerbation, 2 stable chronic or 1 acute illness add add modifier 95 for video, (do not use for phone, instead use 19074-17) [facility] [place]20[place] Estab. patient 30-39min; chronic exacerbation, 2 stable chronic or 1 acute illness add add modifier 95 for video, (do not use for phone, instead use 17148-09) [facility] [place]2023 Estab. patient 30-39min; chronic exacerbation, 2 stable chronic or 1 acute illness add add modifier 95 for video, (do not use for phone, instead use 09585-09) [facility] [place] 10[place]/2023 Estab. patient 30-39min; chronic exacerbation, 2 stable chronic or 1 acute illness add add modifier 95 for video, (do not use for phone, instead use 78197-17) [facility] [place] 10[place]/2023 Estab. patient 30-39min; chronic exacerbation, 2 stable chronic or 1 acute illness add add modifier 95 for video, (do not use for phone, instead use 71445-48) [facility] [place]20[place] Estab. patient 20-29min; 1 stable chronic or 2 minor; add add modifier 95 for video, modifier 93 for phone [facility] [place] 05/30/2024 Other chronic painOther prob lems related to medical facilities and other health care Estab. patient 20-29min; 1 stable chronic or 2 minor; add add modifier 95 for video, modifier 93 for phone [facility] [place] 05/30/2024 Estab. patient 20-29min; 1 stable chronic or 2 minor; add add modifier 95 for video, modifier 93 for phone [facility] [place] 05/30/2024 Estab. patient 20-29min; 1 stable chronic or 2 minor; add add modifier 95 for video, modifier 93 for phone [facility] [place] 05/30/2024 Estab. patient 20-29min; 1 stable chronic or 2 minor; add add modifier 95 for video, modifier 93 for phone [facility] [place] 05/30/2024 Estab. patient 20-29min; 1 stable chronic or 2 minor; add add modifier 95 for video, modifier 93 for phone [facility] [place] 05/30/2024 Estab. patient 20-29min; 1 stable chronic or 2 minor; add add modifier 95 for video, modifier 93 for phone [facility] [place] 05/30/2024 No Data Available [facility] [place] 07/25/2024 Hypertensive heart disease w ith heart failureHeart failure, unspecifiedSecondary hyperaldosteronismChronic obstructive pulmonary disease, unspecifiedUnspecified glaucomaOther problems related to medical facilities and other health careOther chronic pain No Data Available [facility] [place] 07/25/2024 No Data Available [facility] [place] 07/25/2024 Vital Signs Date of Collection Vitals [...] Current Smoking Status Current every day smoker 2025-03-29 Sex Male History of Procedures Procedures Service Procedure code Service date Servicing provider Phone# New patient,40-59min; chronic exacerbation, 2 stable chronic or 1 acute illness add add modifier 95 for video (do not use for phone, instead use 58570-56) [id number] 2022-10-28 No Data Available No Data Availa [...] No Data Nancy ilable No Data Available [id number] 2022-10-29 No Data Available No Data Available [...] (do not use for phone, instead use 43019-99) [id number] 2023-10-27 No Data Available No Data Availa [...] 95 for video, modifier 93 for phone 60175 2024-05-30 No Data Available No Data Availa [...] le No Data Available No Data Available [id number] 2024-07-25 No Data Available No Data Available [...] persistent NOLEN< blurry vision)10/27/2023:Follows up with PCP, Labor Operator, last visit 2 weeks ago.BP: 119/68. Reported [...] ophthalmology every 3-6 months 10/27/2023:Follows up with Trip Motor Operator.Continues using: Latanoprost drops.Denies any acute complaint.Reports chronic [...] (no modifier 95)Pain Assessment - Pain Documented (1565F)Continue to see PCP. Follow-up with [facility] as needed for any acute or disease education needs that may arise 09/03.StableLisinopril, Furosemide Avg BP: 120s/60sContinue taking medications as prescribed, continue monitoring BP, discussed low salt diet, exercise as tolerable, and lifestyle interventions. Contact us if developing emergent HTN s/sx (eg. palpitations, persistent NOLEN< blurry vision)07/25/2024:Follows up with PCP, Labor Operator, last visit 2 weeks ago.Taking: amLODIPine Besylate [...] ophthalmology every 3-6 months 07/25/2024:Follows up with Trip Motor Operator.Continues using: Latanoprost drops.Denies any acute complaint.PAIN CONTINGENCY [...] likely not be covered by health plan. [facility] cc info sent to member and [employer]. Advised to f/u with recliner request during [...] questions or concerns. Discussed how to contact [facility] via phone or tablet. CB /7 [...]
--- OUTSIDE RECORDS SUMMARY | 2025-03-29 11:26 | XMS_ITS | Clinical Summary ---
Author Organization [facility] [address] [place] [address] Phone Care Team Providers Care Litigation Examiner Name Role Phone Bridgette Gandhi MD Primary Care Provider [phone] Allergies Active Allergy Reactions Criticality Noted Date [...] Office Visit [facility] [address] [place] [address] Gómez Colunga MD Hypertension (Primary Dx); Type 2 diabetes mellitus without complication (HCC) 01/26/2025 Orders Only [facility] [address] [place] [address] Gómez Colunga MD Hypertension; Type 2 diabetes [...] Visit [facility] [place] [address] [place] [address] Gómez Colunga MD [address] [facility] [address] [place] [id number] Health Maintenance Due Date Last Done Comments [...] patient's age to complete this topic Insurance [facility] ([id number]) [facility] ([id number]) Care Teams Litigation Examiner Relationship Specialty Start Date End Date Bridgette Gandhi MD [address] [place] [id number] PCP - General 08/27/20
--- OUTSIDE RECORDS SUMMARY | 2025-03-29 11:26 | XMS_ITS | Clinical Summary ---
Author Organization [facility] Address [address] [place] [address] Phone Care Team Providers Care Director Physical Name Role Phone Unknown, Unknown Primary Care Provider Terrence montano Social History Tobacco Use Types Packs/Day Years Used Date Smoking Tobacco: Never Assessed Education Answer Date Recorded Are you interested in more education? Not on marquita e 12/12/2022 Are you concerned about learning? Not on file 12/12/2022 No 12/12/2022 No 12/12/2022 Digital Access Answer Date Recorded No 01/13/2023 No 01/13/2023 No 01/13/2023 Reliable internet access at home? Not on file 01/13/2023 Device with a working camera? Not on file Sex and Gender Information Value Date Recorded Sex Assigned at Not on file Legal Sex Male 2:08 PM EDT Gender Identity Not on file Sexual Orientation Not on file Plan of Treatment Not on file Medical Devices Not on file Insurance [facility] MEDICARE REPLACEMENT MEDICARE REPLACEMENT MEDICARE REPLACEMENT [place] [id number] MEDICARE REPLACEMENT MEDICARE REPLACEMENT MEDICARE REPLACEMENT MEDICARE [place] [address] [place] [address] MEDICARE REPLACEMENT Care Teams Director Physical Relationship Specialty Start Date End Date Unknown, Unknown, PCP - General 05/23/19 Additional Source Comments The information contained in this document represents components of the legal health record. It is not the complete legal health record.[facility]
--- OUTSIDE RECORDS SUMMARY | 2025-03-29 11:26 | XMS_ITS | Encounter Summary ---
Author Organization [email or web address] Address [address] [facility] [address] [place] [address] Care Team Providers Care Women Nurse Name Role Phone Bridgette Gandhi MD Primary Care Provider [phone] Ramón Bolaños PharmD Unavailable [phone] Reason for Visit * Reason Comments Med Refill Encounter Details Date Type Department Care Team (Late st Contact Info) Description 10/22/2022 Refill [facility] MEDICINE [address] [place] [address] Tamela Drake MD [address] [place] [address] Dyslipidemia (Primary Dx) Social History Tobacco Use [...] Care Team (Late st Contact Info) Description 05/03/2025 11:00 AM EDT Office Visit [facility] MEDICINE [address] [place] [address] Bridgette Gandhi MD [address] [place] [address] 08/09/2025 1:00 PM EST Office Visit [facility] ADULT DENTAL [address] [place], [place] [phone] Lydia Mac [address] [place] [address] documented as of this encounter Visit Diagnoses Diagnosis Dyslipidemia- Primary Other and unspecified hyperlipidemia documented in this encounter Additional Health Concerns Assessment Noted Time PHQ-9 Depression Total Score: 5 09/11/19 23 10:25 AM EST documented as of this encounter Care Teams Women Nurse Relationship Specialty Start Date End Date Bridgette Gandhi MD [address] [place] [id number] PCP - General Family Medicine 07/01/12 Ramón Bolaños, MollyD [address] [place] [address] [phone] Pharmacist Internal Medicine 11/18/23 documented as of this encounter
== END 2025-03-29 11:16 | disposition home or self-care (01) ==
LOC: HO.PMC 10:38
PROVIDERS: PCP Family Medicine; Visit Provider Registered Nurse Emergency
DX: M54.16 Radiculopathy, lumbar region (principal); M51.369 Other intervertebral disc degeneration, lumbar region without mention of lumbar back pain or lower extremity pain; M25.552 Pain in left hip
CPT/HCPCS: 99213; G2211

== ENCOUNTER → 2025-03-29 10:38 | Outpatient (BNVA) | payer OTHER, SELFPAY | PROVIDERS: PCP Family Medicine; Visit Provider Registered Nurse Emergency | DX: M54.16 Radiculopathy, lumbar region (principal); M51.369 Other intervertebral disc degeneration, lumbar region without mention of lumbar back pain or lower extremity pain; M25.552 Pain in left hip | CPT/HCPCS: 99212 ==

== ENCOUNTER 2025-05-03 08:49 | Outpatient (REF) | payer OTHER, SELFPAY ==
--- OUTSIDE RECORDS SUMMARY | 2025-05-03 10:17 | XMS_ITS | Encounter Summary ---
Author Organization [employer] Address [address] [facility] 7t [place] [address] Care Team Providers Care Rn Heart Name Role Phone Bridgette Gandhi MD Primary Care Provider [phone] Ramón Bolaños PharmD Unavailable [phone] Encounter Details Date Type Department Care Team (Late Contact Info) Description 10/09/2022 Orders Only [facility] [address] [place] [address] Bridgette Gandhi MD [address] [place] [address] Spinal stenosis of lumbar region with neurogenic [...] Department Care Team (Late Contact Info) Description 05/03/2025 11:00 AM EDT Office Visit [facility] [address] [place] [address] Bridgette Gandhi MD [address] [place] [address] Hypertension, unspecified type (Primary Dx) 08/09/2025 1:00 PM EST Office Visit [facility] ADULT DENTAL [address] [place] [address] Bubba, Lydia [address] [place] [address] documented as of this encounter Visit Diagnoses Diagnosis Spinal stenosis of lumbar region with neurogenic claudication- Primary Hypertension, unspecified type- Primary documented in this encounter Additional Health Concerns Assessment Noted Time PHQ-9 Depression Total Score: 5 09/11/19 23 10:25 AM EST documented as of this encounter Care Teams Rn Heart Relationship Specialty Start Date End Date Bridgette Gandhi MD [address] [place] [address] PCP - General Family Medicine 07/01/12 Ramón Bolaños, MollyD [address] [place] [address] Pharmacist Internal Medicine 11/18/23 documented as of this encounter
--- OUTSIDE RECORDS SUMMARY | 2025-05-03 10:17 | XMS_ITS | Encounter Summary ---
Author Organization [employer] Address [address] [facility] 7t [place] [address] Care Team Providers Care Union Organiser Name Role Phone Bridgette Gandhi MD Primary Care Provider [phone] Ramón Bolaños PharmD Unavailable [phone] Reason for Referral * Consultation (Routine) - Closed Specialty Diagnoses / Procedures Referred By Jj t Referred To Contact Orthopaedic Surgery Diagnoses Primary osteoarthritis of both hips Primary osteoarthritis of both knees Bridgette Gandhi MD [address] [place] [address] Phone: tel: fax: [facility] [address] [place] [address] Drive [address] [place], [place] Phone: tel: fax: Referral ID Status Reason Start Date Expiration Date V isits Requested Visits Authorized [id number] Closed Specialty Services Required 02/23/2024 02/22/2025 1 1 Encounter Details Date Type Department Care Team (Late st Contact Info) Description 02/23/2024 Orders Only [facility] MED[facility]INE [address] [place] [phone] Bridgette Gandhi MD [address] [place], [place] [phone] Primary osteoarthritis of both hips (Primary Dx); [...] Description 05/03/2025 11:00 AM EDT Office Visit [facility] [address] [place] [address] Bridgette Gandhi MD [address] [place] [address] Hypertension, unspecified type (Primary Dx) 08/09/2025 1:00 PM EST Office Visit [facility] ADULT DENTAL [address] [place], [place] [phone] Lydia Mac [address] [place] [address] Scheduled Referrals Name Type Priority Associated Diagnoses Orde r Schedule Referral to Orthopaedic Surgery Outpatient Referral Routine Primary osteoarthritis of both hips Primary osteoarthritis of both knees Expected: 02/23/2024 (Approximate), Expires: 02/22/2025 documented as of this encounter Goals Goal Patient Goal Type Associated Problems Recent Progress Patient-Stated? Author Blood Pressure < 140/90 Blood Pressure 140/88(2024 11:39 AM EDT) No Ramón Bolaños PharmD Hemoglobin A1c < 7 Result Component 7.5( 11:15 AM EDT) No Ramón Bolaños PharmD documented as of this encounter Visit Diagnoses Diagnosis Primary osteoarthritis of both hips- Primary Primary osteoarthritis of both knees Primary osteoarthritis involving multiple joints Hypertension, unspecified type- Primary documented in this encounter Additional Health Concerns Assessment Noted Time PHQ-9 Depression Total Score: 7 11/04/19 24 10:54 AM EDT documented as of this encounter Care Teams Union Organiser Relationship Specialty Start Date End Date Bridgette Gandhi MD [address] [place] [address] PCP - General Family Medicine 07/01/12 Ramón Bolaños PharmD [address] [place] [address] Pharmacist Internal Medicine 11/18/23 documented as of this encounter
--- OUTSIDE RECORDS SUMMARY | 2025-05-03 10:17 | XMS_ITS ---
Author Name Elijah ARTURONicci Address [address] [place] [address] Phone [phone] [facility] Care Team Providers Care Door Manager Name Role Phone Alejandrina Nava Unavailable [phone] Unavailable Unavailable Unavailable Unavailable Unavailable Unavailable Reason [...] 2022-03-10 No Data Available Deep Sea Nasal Lebeau 0.65 % Solution USE 1-2 SPRAYS IN [...] ORAL TODOS LOS D POR 3 D 2023-10-152023-10-27 Problem List Problem Status Onset Date Resolved [...] 2022-09-30 N/A StableMetforminA vg B-120A1c: 6.3% on 09/11/22Continue taking medication, low [...] persistent NOLEN< blurry vision)07/25/2024:Follows up with PCP, Sales Contracts Analyst, last visit 2 weeks ago.Taking: amLODIPine Besylate [...] ophthalmology every 3-6 months 07/25/2024:Follows up with Director Data.Continues using: Latanoprost drops.Denies any acute complaint. 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 Advised to f/u with recliner request during 07/27/24 f/u visit with PCP, as may need PT/OT eval. Encounters Encounters Type Facility Date of Service Diagnosis/Co mplaint New patient,40-59min; chronic exacerbation, 2 stable chronic or 1 acute illness add add modifier 95 for video (do not use for phone, instead use 13520-77) [facility] ([place]) 10/28/2022 Type [...] (do not use for phone, instead use 35443-67) [facility], ([place]) 10[place]28/2022 New patient,40-59min; chronic exacerbation, 2 stable chronic or 1 acute illness add add modifier 95 for video (do not use for phone, instead use 96787-41) [facility] New patient,40-59min; chronic exacerbation, 2 stable chronic or 1 acute illness add add modifier 95 for video (do not use for phone, instead use 71746-66) [facility]2022 New patient,40-59min; chronic exacerbation, 2 stable chronic or 1 acute illness add add modifier 95 for video (do not use for phone, instead use 75297-06) [facility]20[place] New patient,40-59min; chronic exacerbation, 2 stable chronic or 1 acute illness add add modifier 95 for video (do not use for phone, instead use 18997-11) [facility]2022 New patient,40-59min; chronic exacerbation, 2 stable chronic or 1 acute illness add add modifier 95 for video (do not use for phone, instead use 19461-57) [facility] 10[place]2022 New patient,40-59min; chronic exacerbation, 2 stable chronic or 1 acute illness add add modifier 95 for video (do not use for phone, instead use 52582-96) [facility] 10[place]/2022 New patient,40-59min; chronic exacerbation, 2 stable chronic or 1 acute illness add add modifier 95 for video (do not use for phone, instead use 03670-28) [facility] 10[place]/2022 No Data Available [facility]29/2022 Type 2 diabetes mellitus wit h diabetic neuropathy, unspecifiedMorbid (severe) obesity due to excess caloriesMajor depressive disorder, recurrent, mildHeart failure, unspecifiedHypertensive heart disease with heart failureChronic obstructive pulmonary disease, unspecifiedOther amnesiaUnspecified glaucoma No Data Available [facility] 10[place]29/2022 No Data Available [facility] [place]29/2022 Estab. patient 30-39min; chronic exacerbation, 2 stable chronic or 1 acute illness add add modifier 95 for video, (do not use for phone, instead use 25552-02) [facility] 10/27/2023 Type 2 diabetes mellitus wit h [...] (do not use for phone, instead use 70797-82) [facility] 10[place]27/2023 Estab. patient 30-39min; chronic exacerbation, 2 stable chronic or 1 acute illness add add modifier 95 for video, (do not use for phone, instead use 32055-84) [facility] 10/27/2023 Estab. patient 30-39min; chronic exacerbation, 2 stable chronic or 1 acute illness add add modifier 95 for video, (do not use for phone, instead use 29529-33) [facility] [place]/2023 Estab. patient 30-39min; chronic exacerbation, 2 stable chronic or 1 acute illness add add modifier 95 for video, (do not use for phone, instead use 23747-75) [facility] 10[place]/2023 Estab. patient 30-39min; chronic exacerbation, 2 stable chronic or 1 acute illness add add modifier 95 for video, (do not use for phone, instead use 50303-68) [facility] ([place] 10/27/2023 Estab. patient 30-39min; chronic exacerbation, 2 stable chronic or 1 acute illness add add modifier 95 for video, (do not use for phone, instead use 93862-05) [facility] 10[place]27/2023 Estab. patient 30-39min; chronic exacerbation, 2 stable chronic or 1 acute illness add add modifier 95 for video, (do not use for phone, instead use 02900-73) [facility] 10[place]/2023 Estab. patient 30-39min; chronic exacerbation, 2 stable chronic or 1 acute illness add add modifier 95 for video, (do not use for phone, instead use 62803-41) [facility] 10/27/2023 Estab. patient 30-39min; chronic exacerbation, 2 stable chronic or 1 acute illness add add modifier 95 for video, (do not use for phone, instead use 56847-27) [facility] 10/[place]/2023 Estab. patient 20-29min; 1 stable chronic or 2 minor; add add modifier 95 for video, modifier 93 for phone [facility] 05/30/2024 Other chronic painOther prob lems related to medical facilities and other health care Estab. patient 20-29min; 1 stable chronic or 2 minor; add add modifier 95 for video, modifier 93 for phone [facility] 05/30/2024 Estab. patient 20-29min; 1 stable chronic or 2 minor; add add modifier 95 for video, modifier 93 for phone [facility] 05/30/2024 Estab. patient 20-29min; 1 stable chronic or 2 minor; add add modifier 95 for video, modifier 93 for phone [facility] 05/30/2024 Estab. patient 20-29min; 1 stable chronic or 2 minor; add add modifier 95 for video, modifier 93 for phone [facility] 05/30/2024 Estab. patient 20-29min; 1 stable chronic or 2 minor; add add modifier 95 for video, modifier 93 for phone [facility] 05/30/2024 Estab. patient 20-29min; 1 stable chronic or 2 minor; add add modifier 95 for video, modifier 93 for phone [facility] 05/30/2024 No Data Available [facility] 07/25/2024 Hypertensive heart disease w ith heart failureHeart failure, unspecifiedSecondary hyperaldosteronismChronic obstructive pulmonary disease, unspecifiedUnspecified glaucomaOther problems related to medical facilities and other health careOther chronic pain No Data Available [facility] 07/25/2024 No Data Available [facility] 07/25/2024 Vital Signs Date of Collection Vitals [...] Current Smoking Status Current every day smoker 2025-05-03 Sex Male History of Procedures Procedures Service Procedure code Service date Servicing provider Phone# New patient,40-59min; chronic exacerbation, 2 stable chronic or 1 acute illness add add modifier 95 for video (do not use for phone, instead use 10594-28) 09407 2022-10-28 No Data Available No Data Availa ble Medication List Documented (5039F) 1154F 2022-10-28 No Data Available No Data Nancy [...] No Data Nancy ilable No Data Available 10060 2022-10-29 No Data Available No Data Available [...] (do not use for phone, instead use 85004-34) 41571 2023-10-27 No Data Available No Data Availa [...] 95 for video, modifier 93 for phone 46542 2024-05-30 No Data Available No Data Availa [...] le No Data Available No Data Available 19930 2024-07-25 No Data Available No Data Available [...] routinely, and DEONNA Consult for memory evaluation ordered3/15 referred to PCP/ Neuro for mini mentalhe [...] persistent NOLEN< blurry vision)10/27/2023:Follows up with PCP, Sales Contracts Analyst, last visit 2 weeks ago.BP: 119/68. Reported [...] routinely, and DEONNA Consult for memory evaluation ordered3/15 referred to PCP/ Neuro for mini mentalhe is currently aox4 states he is forgetful at times but it is no consistent 10/27/2023:Stable.Follows up with PCP.Not taking any medications. Denies any acute complaint.StableLatanoprost ggtsContinue using medicated eye drops, monitor for acute changes or worsening vision, and continue f/u care and monitoring with PCP and ophthalmology every 3-6 months 10/27/2023:Follows up with Director Data.Continues using: Latanoprost drops.Denies any acute complaint.Reports chronic [...] (no modifier 95)Pain Assessment - Pain Documented (7265F)Continue to see PCP. Follow-up with [facility] as needed for any acute or disease education needs that may arise 09/03.StableLisinopril, Furosemide Avg BP: 120s/60sContinue taking medications as prescribed, continue monitoring BP, discussed low salt diet, exercise as tolerable, and lifestyle interventions. Contact us if developing emergent HTN s/sx (eg. palpitations, persistent NOLEN< blurry vision)07/25/2024:Follows up with PCP, Sales Contracts Analyst, last visit 2 weeks ago.Taking: amLODIPine Besylate [...] recent or acute respiratory symptoms. 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 Advised to f/u with recliner request during [...] Psychiatric therapy referral 2022-10-28 DEONNA consult for rasahad ry impairment 2022-10-29 continue medications as prescribed [...] questions or concerns. Discussed how to contact [facility] via phone or tablet. CB 24/ phone number provided. 2024-05-30 At least [...]
--- OUTSIDE RECORDS SUMMARY | 2025-05-03 10:17 | XMS_ITS | Encounter Summary ---
Author Organization [employer] Address [address] [facility] 7t [place] [address] Care Team Providers Care Social Psychologist Name Role Phone Bridgette Gandhi MD Primary Care Provider [phone] Ramón Bolaños PharmD Unavailable [phone] Reason for Visit * Reason Onset Date Comments ER Follow-up 05/26/2024 Nurse Triage 05/26/2024 Encounter Details Date Type Department Care Team (Late st Contact Info) Description 05/26/2024 Telephone [facility] [address] [place], [place] [phone] Bridgette Gandhi MD [address] [place], [place] [phone] ER Follow-up; Nurse Triage Social History Tobacco [...] encounter Miscellaneous Notes * Telephone Encounter - Dnaii Hope RN - 05/26/2024 2:31 PM EDT Please assist with obtaining discharge summary for [facility] ED visit on 05/25/24 for provider review prior to upcoming appointment. Future Appointments Date Time Provider Department Center 05/27/2024 8:45 AM Jeremias Gong MD [facility] 01/11/2025 10:00 AM Susy Dixon PharmD [facility] * Telephone Encounter - Danii Hope [...] Center 05/27/2024 8:45 AM Jeremias Gong MD [facility] 01/11/2025 10:00 AM Susy Dixon PharmD [facility] Insurance verified as active per [employer] Eligibility in [employer]. Video visit offered and caller accepted Positive Triage Question: * Patient wants to be seen * All higher-acuity triage questions were negative Care Advice Discussed: * Continue Treatment * Reasons To Call Back - You become worse * Telephone Encounter - Russell Dumas - 05/26/2024 2:13 PM EDT Patient calling to report ED visit on : Date: 05/25/24 Hospital: [facility] Seen for: Severe hip and thigh [...] Description 05/03/2025 11:00 AM EDT Office Visit [facility] [address] [place] [address] Bridgette Gandhi MD [address] [place] [address] Hypertension, unspecified type (Primary Dx) 08/09/2025 1:00 PM EST Office Visit [facility] ADULT D[facility] [address] [place] [address] Lydia Mac [address] [place] [address] documented as of this encounter Goals Goal [...] documented as of this encounter Care Teams Social Psychologist Relationship Specialty Start Date End Date Bridgette Gandhi MD [address] [place] [address] PCP - General Family Medicine 07/01/12 Ramón Bolaños PharmD [address] [place] [address] Pharmacist Internal Medicine 11/18/23 documented as of this encounter
--- OUTSIDE RECORDS SUMMARY | 2025-05-03 10:17 | XMS_ITS | Encounter Summary ---
Author Organization [employer] Address 75 [facility] 7t [place] [address] Care Team Providers Care Funeral Greeter Name Role Phone Bridgette Gandhi MD Primary Care Provider [phone] Ramón Bolaños PharmD Unavailable [phone] Reason for Visit * Reason Onset Date Comments Referral 04/06/2025 Encounter Details Date Type Department Care Team (Late st Contact Info) Description 04/06/2025 Telephone [facility] [address] [place], [place] [phone] Bridgette Gandhi MD [address] [place], [place] [phone] Referral Social History Tobacco Use Types Packs/Day [...] Telephone Encounter - Bridgette Gandhi MD - 04/06/2025 12:54 PM EDT Referred as requested * Telephone Encounter - Rosalina Nelson - 04/06/2025 9:04 AM EDT Tc from pt daughter requesting a referral for a cardiology place in [place]. Contact pt at Daughter at [phone] Need hourly sign language interpreter documented in this encounter Plan of Treatment Upcoming Encounters Date Type Department Care Team (Late st Contact Info) Description 05/03/2025 11:00 AM EDT Office Visit [facility] [address] [place] [address] Bridgette Gandhi MD [address] [place] [address] Hypertension, unspecified type (Primary Dx) 08/09/2025 1:00 PM EST Office Visit [facility] ADULT DENTAL [address] [place] [address] Lydia Mac [address] [place] [address] documented as of this encounter Goals Goal [...] documented as of this encounter Care Teams Funeral Greeter Relationship Specialty Start Date End Date Bridgette Gandhi MD [address] [place] [address] PCP - General Family Medicine 07/01/12 Ramón Bolaños PharmD [address] [place] [address] Pharmacist Internal Medicine 11/18/23 documented as of this encounter
--- OUTSIDE RECORDS SUMMARY | 2025-05-03 10:17 | XMS_ITS | Encounter Summary ---
Author Organization [employer] Address 75 [facility] 7t [place] [address] Care Team Providers Care Conveyor Operator Name Role Phone Bridgette Gandhi MD Primary Care Provider [phone] Ramón Bolaños PharmD Unavailable [phone] Reason for Visit * Reason Comments Med Refill Encounter Details Date Type Department Care Team (Late st Contact Info) Description 10/22/2022 Refill [facility] [address] [place] [address] Tamela Drake MD [address] [place] [address] Dyslipidemia (Primary Dx) Social History Tobacco Use [...] Description 05/03/2025 11:00 AM EDT Office Visit [facility] [address] [place] [address] Bridgette Gandhi MD [address] [place] [address] Hypertension, unspecified type (Primary Dx) 08/09/2025 1:00 PM EST Office Visit [facility] ADULT DENTAL [address] [place] [address] Bubba, Lydia [address] [place] [address] documented as of this encounter Visit Diagnoses Diagnosis Dyslipidemia- Primary Other and unspecified hyperlipidemia Hypertension, unspecified type- Primary documented in this encounter Additional Health Concerns Assessment Noted Time PHQ-9 Depression Total Score: 5 09/11/19 23 10:25 AM EST documented as of this encounter Care Teams Conveyor Operator Relationship Specialty Start Date End Date Bridgette Gandhi MD [address] [place] [address] PCP - General Family Medicine 07/01/12 Ramón Bolaños, Bradley [address] [place] [address] Pharmacist Internal Medicine 11/18/23 documented as of this encounter
--- OUTSIDE RECORDS SUMMARY | 2025-05-03 10:17 | XMS_ITS | Encounter Summary ---
Author Organization [employer] Address 75 [facility] 7t [place] [address] Care Team Providers Care Conveyor Mechanic Name Role Phone Bridgette Gandhi MD Primary Care Provider [phone] Ramón Bolaños PharmD Unavailable [phone] Encounter Details Date Type Department Care Team (Late st Contact Info) Description 06/24/2024 Orders Only [facility] [address] [place], [place] [phone] Bridgette Gandhi MD [address] [place], [place] [phone] Social History Tobacco Use Types Packs/Day Years [...] Description 05/03/2025 11:00 AM EDT Office Visit [facility] [address] [place] [address] Bridgette Gandhi MD [address] [place] [address] Hypertension, unspecified type (Primary Dx) 08/09/2025 1:00 PM EST Office Visit [facility] ADULT DENTAL [address] [place] [address] Lydia Mac [address] [place] [address] documented as of this encounter Goals Goal [...] as of this encounter Care Teams Conveyor Mechanic Relationship Specialty Start Date End Date Bridgette Gandhi MD [address] [place] [address] PCP - General Family Medicine 07/01/12 Ramón Bolaños, Bradley [address] [place] [address] Pharmacist Internal Medicine 11/18/23 documented as of this encounter
--- OUTSIDE RECORDS SUMMARY | 2025-05-03 10:17 | XMS_ITS | Encounter Summary ---
Author Organization [employer] Address 75 [facility] 7t [place] [address] Care Team Providers Care Ceramics Machine Operator Name Role Phone Bridgette Gandhi MD Primary Care Provider [phone] Ramón Bolaños PharmD Unavailable [phone] Reason for Visit * Reason Comments Med Refill Encounter Details Date Type Department Care Team (Late st Contact Info) Description 06/07/2023 Refill [facility] [address] [place], [place] [phone] Bridgette Gandhi MD [address] [place], [place] [phone] Social History Tobacco Use Types Packs/Day Years [...] Description 05/03/2025 11:00 AM EDT Office Visit [facility] MEDICINE [address] [place] [address] Bridgette Gandhi MD [address] [place] [address] Hypertension, unspecified type (Primary Dx) 08/09/2025 1:00 PM EST Office Visit [facility] ADULT DENTAL [address] [place] [address] Bubba, Lydia [address] [place] [address] documented as of this encounter Visit Diagnoses Not on filedocumented in this encounter Additional Health Concerns Assessment Noted Time PHQ-9 Depression Total Score: 5 09/11/19 23 10:25 AM EST documented as of this encounter Care Teams Ceramics Machine Operator Relationship Specialty Start Date End Date Bridgette Gandhi MD [address] [place] [address] PCP - General Family Medicine 07/01/12 Ramón Bolaños, MollyD [address] [place] [address] Pharmacist Internal Medicine 11/18/23 documented as of this encounter
--- OUTSIDE RECORDS SUMMARY | 2025-05-03 10:17 | XMS_ITS | Encounter Summary ---
Author Organization [employer] [facility] Address [address] [place] [address] 7t [place] [address] Care Team Providers Care Machinery Rigger Name Role Phone Bridgette Gandhi MD Primary Care Provider [phone] Ramón Bolaños PharmD Unavailable [phone] Encounter Details Date Type Department Care Team (Late st Contact Info) Description 07/31/[address] [facility] ADULT DENTAL [address] [place] [address] Lydia Mac [address] [place] [address] Social History Tobacco Use Types Packs/Day Years [...] Description 05/03/2025 11:00 AM EDT Office Visit [facility] MEDICINE [address] [place], [place] [phone] Bridgette Gandhi MD [address] [place], [place] [phone] Hypertension, unspecified type (Primary Dx) 08/09/2025 1:00 PM EST Office Visit [facility] ADULT DENTAL [address] [place], [place] [phone] Lydia Mac [address] [place] [address] documented as of this encounter Visit Diagnoses Not on filedocumented in this encounter Care Teams Machinery Rigger Relationship Specialty Start Date End Date Bridgette Gandhi MD [address] [place] [address] PCP - General Family Medicine 07/01/12 Ramón Bolaños, Bradley [address] [place] [address] Pharmacist Internal Medicine 11/18/23 documented as of this encounter
--- OUTSIDE RECORDS SUMMARY | 2025-05-03 10:17 | XMS_ITS | Clinical Summary ---
Author Organization [facility] Address [address] [place], [place] [phone] Phone Care Team Providers Care Devulcanizer Head Name Role Phone Unknown, Unknown Primary Care [...] file Medical Devices Not on file Insurance [facility] DUAL MEDICARE [place]PLAC[place] [place] [address] DUAL MEDICARE REPLACEMENT DUAL MEDICARE REPLACEMENT [facility] DUAL MEDICARE [place] [address] [address] [place] [address] DUAL MEDICARE REPLACEMENT [facility] DUAL MEDICARE REPLACEMENT [facility] DUAL MEDICARE REPLACEMENT [facility] DUAL MEDICARE REPLACEMENT Care Teams Devulcanizer Head Relationship Specialty Start Date End Date Unknown, Unknown, PCP - General 05/23/19 Additional Source Comments The information contained in this document represents components of the legal health record. It is not the complete legal health record.[facility]
--- OUTSIDE RECORDS SUMMARY | 2025-05-03 10:17 | XMS_ITS | Encounter Summary ---
Author Organization [employer] Address [address] [facility] 7t [place] [address] Care Team Providers Care Sewer Line Photo Inspector Name Role Phone Bridgette Gandhi MD Primary Care Provider [phone] Ramón Bolaños PharmD Unavailable Encounter Details Date Type Department Care Team (Late st Contact Info) Description 02/17/2025 Orders Only [facility] MEDICINE [address] [place], [place] [phone] Bridgette Gandhi MD [address] [place], [place] [phone] Osteoporosis screening (Primary Dx) Social History Tobacco Use Types [...] Description 05/03/2025 11:00 AM EDT Office Visit [facility] MEDICINE [address] [place] [address] Bridgette Gandhi MD [address] [place] [address] Hypertension, unspecified type (Primary Dx) 08/09/2025 1:00 PM EST Office Visit [facility] ADULT DENTAL [address] [place] [address] Lydia Mac [address] [place] [address] documented as of this encounter Goals Goal Patient Goal Type Associated Problems Recent Progress Patient-Stated? Author Blood Pressure < 140/90 Blood Pressure 140/88(2024 11:39 AM EDT) No Ramón Bolaños, Bradley Hemoglobin A1c < 7 Result Component 7.5( 11:15 AM EDT) No Ramón Bolaños PharmD documented as of this encounter Visit Diagnoses Diagnosis Osteoporosis screening- Primary Special screening for osteoporosis Hypertension, unspecified type- Primary documented in this encounter Additional Health Concerns Assessment Noted Time PHQ-9 Depression Total Score: 0 04/07/20 11:45 AM EDT documented as of this encounter Care Teams Sewer Line Photo Inspector Relationship Specialty Start Date End Date Bridgette Gandhi MD [address] [place] [address] PCP - General Family Medicine 07/01/12 Ramón Bolaños, Bradley [address] [place] [address] Pharmacist Internal Medicine 11/18/23 documented as of this encounter
--- OUTSIDE RECORDS SUMMARY | 2025-05-03 10:17 | XMS_ITS | Encounter Summary ---
Author Organization [employer] Address [address] [facility] 7t [place] [address] Care Team Providers Care Inspection Supervisor Name Role Phone Bridgette Gandhi MD Primary Care Provider [phone] Ramón Bolaños PharmD Unavailable [phone] Reason for Visit * Reason Onset Date Comments CHART PREP 05/02/2025 Encounter Details Date Type Department Care Team (Late st Contact Info) Description 05/02/2025 Telephone [facility] MEDICINE [address] [place], [place] [phone] Bridgette Gandhi MD [address] [place], [place] [phone] CHART PREP Social History Tobacco Use Types Packs/Day Years [...] encounter Miscellaneous Notes * Telephone Encounter - Uri Kate [place] - 05/02/2025 7:44 PM EDT Chart Prep Labs: not applicable Images: not applicable Referrals: not applicable Vaccines due: Covid, Flu, Tdap, RSV, and Zoster Screenings: not applicable Overdue care gaps: A1c, Glucose, SBIRT, PHQ-9, and Oral health screening documented in this encounter Plan of Treatment Upcoming Encounters Date Type Department Care Team (Late st Contact Info) Description 05/03/2025 11:00 AM EDT Office Visit [facility] MEDICINE [address] [place] [address] Bridgette Gandhi MD [address] [place] [address] Hypertension, unspecified type (Primary Dx) 08/09/2025 1:00 PM EST Office Visit [facility] ADULT DENTAL [address] [place], [place] [phone] Lydia Mac [address] [place] [address] documented as of this encounter Goals Goal [...] documented as of this encounter Care Teams Inspection Supervisor Relationship Specialty Start Date End Date Bridgette Gandhi MD [address] [place] [address] PCP - General Family Medicine 07/01/12 Ramón Bolaños PharmD [address] [place] [address] Pharmacist Internal Medicine 11/18/23 documented as of this encounter
--- OUTSIDE RECORDS SUMMARY | 2025-05-03 10:17 | XMS_ITS | Encounter Summary ---
Author Organization [employer] Address [address] [facility] 7t [place] [address] Care Team Providers Care Green Chain Offbearer Name Role Phone Bridgette Gandhi MD Primary Care Provider [phone] Ramón Bolaños PharmD Unavailable [phone] Encounter Details Date Type Department Care Team (Late st Contact Info) Description 08/28/[address] [facility] MEDICINE [address] [place], [place] [phone] Bridgette Gandhi MD [address] [place], [place] [phone] Social History Tobacco Use Types Packs/Day Years [...] Description 05/03/2025 11:00 AM EDT Office Visit [facility] MEDICINE [address] [place] [address] Bridgette Gandhi MD [address] [place] [address] Hypertension, unspecified type (Primary Dx) 08/09/2025 1:00 PM EST Office Visit [facility] ADULT DENTAL [address] [place] [address] Bubba, Lydia [address] [place] [address] documented as of this encounter Visit Diagnoses Not on filedocumented in this encounter Additional Health Concerns Assessment Noted Time PHQ-9 Depression Total Score: 5 09/11/19 23 10:25 AM EST documented as of this encounter Care Teams Green Chain Offbearer Relationship Specialty Start Date End Date Bridgette Gandhi MD [address] [place] [address] PCP - General Family Medicine 07/01/12 Ramón Bolaños, MollyD [address] [place] [address] [phone] Pharmacist Internal Medicine 11/18/23 documented as of this encounter
--- OUTSIDE RECORDS SUMMARY | 2025-05-03 10:17 | XMS_ITS | Encounter Summary ---
Author Organization [employer] Address [address] [facility] 7t [place] [address] Care Team Providers Care Sodium Methylate Operator Name Role Phone Bridgette Gandhi MD Primary Care Provider [phone] Ramón Bolaños PharmD Unavailable [phone] Encounter Details Date Type Department Care Team (Late st Contact Info) Description 06/26/2023 Abstract [facility] ADULT DENTAL [address] [place] [address] Amarjit Foster DDS [address] [place] [address] Social History Tobacco Use Types Packs/Day Years [...] Description 05/03/2025 11:00 AM EDT Office Visit [facility] MEDICINE [address] [place] [address] Bridgette Gandhi MD [address] [place] [address] Hypertension, unspecified type (Primary Dx) 08/09/2025 1:00 PM EST Office Visit [facility] ADULT DENTAL [address] [place] [address] Bubba, Lydia [address] [place] [address] documented as of this encounter Visit Diagnoses Not on filedocumented in this encounter Additional Health Concerns Assessment Noted Time PHQ-9 Depression Total Score: 5 09/11/19 23 10:25 AM EST documented as of this encounter Care Teams Sodium Methylate Operator Relationship Specialty Start Date End Date Bridgette Gandhi MD [address] [place] [address] PCP - General Family Medicine 07/01/12 Ramón Bolaños, PharmD [address] [place] [address] Pharmacist Internal Medicine 11/18/23 documented as of this encounter
--- OUTSIDE RECORDS SUMMARY | 2025-05-03 10:17 | XMS_ITS | Encounter Summary ---
Author Organization [employer] Address [address] [place] [address] 7t [place] [address] Care Team Providers Care Propeller Tester Name Role Phone Bridgette Gandhi MD Primary Care Provider [phone] Ramón Bolaños PharmD Unavailable [phone] Encounter Details Date Type Department Care Team (Late Contact Info) Description 04/30/2023 Abstract [facility] MEDICINE [address] [place] [address] [phone] Bridgette Gandhi MD [address] [place] [address] Social History Tobacco Use Types Packs/Day Years [...] Description 05/03/2025 11:00 AM EDT Office Visit [facility] MEDICINE [address] [place] [phone] Bridgette Gandhi MD [address] [place] [address] Hypertension, unspecified type (Primary Dx) 08/09/2025 1:00 PM EST Office Visit [facility] ADULT DENTAL [address] [place] [address] Lydia Mac [address] [place] [address] documented as of this encounter Procedures Procedure Name Priority Date/Time Associated Diagnosis Comments HM DIABETES: URINE PROTEIN SCREENING Routine 04/28/2023 documented in this encounter Results * Diabetes: Urine Protein Screening (04/28/2023) Microalbumin, Urine 18 Creatinine, Random Urine 180.1 Urine Bridgette Gandhi MD HEALTH MAINTENANCE Final Result documented in this encounter Visit Diagnoses Not on filedocumented in this encounter Additional Health Concerns Assessment Noted Time PHQ-9 Depression Total Score: 5 09/11/19 23 10:25 AM EST documented as of this encounter Care Teams Propeller Tester Relationship Specialty Start Date End Date Bridgette Gandhi MD [address] [place], [place] [phone] PCP - General Family Medicine 07/01/12 Ramón Bolaños, MollyD [address] [place] [address] [phone] Pharmacist Internal Medicine 11/18/23 documented as of this encounter
--- OUTSIDE RECORDS SUMMARY | 2025-05-03 10:17 | XMS_ITS | Encounter Summary ---
Author Organization [employer] Address [address] [facility] [address] 7t [place] [address] Care Team Providers Care Cement Or Concrete Finishing Supervisor Name Role Phone Bridgette Gandhi MD Primary Care Provider [phone] Ramón Bolaños PharmD Unavailable Encounter Details Date Type Department Care Team (Late st Contact Info) Description 08/22/2024 Abstract [facility] MEDICINE [address] [place], [place] [phone] [place] Social History Tobacco Use [...] Description 05/03/2025 11:00 AM EDT Office Visit [facility] MEDICINE [address] [place] [address] Bridgette Gandhi MD [address] [place] [address] Hypertension, unspecified type (Primary Dx) 08/09/2025 1:00 PM EST Office Visit [facility] ADULT DENTAL [address] [place] [address] Bubba Lydia [address] [place] [address] documented as of this encounter Goals Goal Patient Goal Type Associated Problems Recent Progress Patient-Stated? Author Blood Pressure < 140/90 Blood Pressure 140/88(2024 11:39 AM EDT) No Ramón Bolaños, PharmJameson Hemoglobin A1c < 7 Result Component 7.5( [...] documented as of this encounter Care Teams Cement Or Concrete Finishing Supervisor Relationship Specialty Start Date End Date Bridgette Gandhi MD [address] [place] [address] PCP - General Family Medicine 07/01/12 Ramón Bolaños, MollyD [address] [place] [address] Pharmacist Internal Medicine 11/18/23 documented as of this encounter
--- OUTSIDE RECORDS SUMMARY | 2025-05-03 10:17 | XMS_ITS | Encounter Summary ---
Author Organization [employer] Address [address] [facility] 7t [place] [address] Care Team Providers Care Software Integration Developer Name Role Phone Bridgette Gandhi MD Primary Care Provider [phone] Ramón Bolaños PharmD Unavailable [phone] Encounter Details Date Type Department Care Team (Latest Contact Info) Description 05/03/2025 Travel Social History Tobacco Use Types Packs/Day [...] 11:00 AM EDT Office Visit [facility] MEDICINE [address] [place] [address] Bridgette Gandhi MD [address] [place] [address] Hypertension, unspecified type (Primary Dx) 08/09/2025 1:00 PM EST Office Visit [facility] ADULT DENTAL [address] [place] [address] Bubba, Lydia [address] [place] [address] documented as of this encounter Goals Goal [...] documented as of this encounter Care Teams Software Integration Developer Relationship Specialty Start Date End Date Bridgette Gandhi MD [address] [place] [address] PCP - General Family Medicine 07/01/12 Ramón Bolaños, PharmD [address] [place] [address] [place] [address] Pharmacist Internal Medicine 11/18/23 documented as of this encounter
--- OUTSIDE RECORDS SUMMARY | 2025-05-03 10:17 | XMS_ITS | Encounter Summary ---
Author Organization [employer] Address [address] [facility] 7t [place] [address] Care Team Providers Care Weight Shifter Name Role Phone Bridgette Gandhi MD Primary Care Provider [phone] Ramón Bolaños PharmD Unavailable [phone] Reason for Visit * Reason Comments Med Refill Encounter Details Date Type Department Care Team (Late st Contact Info) Description 03/10/2024 Refill [facility] MEDICINE [address] [place], [place] [phone] Bridgette Gandhi MD [address] [place], [place] [phone] Social History Tobacco Use Types Packs/Day Years [...] the past 12 months, has t he [employer] gas, oil or water company threatened to [...] 11:00 AM EDT Office Visit [facility] MEDICINE [address] [place] [address] Bridgette Gandhi MD [address] [place] [address] Hypertension, unspecified type (Primary Dx) 08/09/2025 1:00 PM EST Office Visit [facility] ADULT DENTAL [address] [place] [address] Bubba, Lydia [address] [place] [address] documented as of this encounter Goals Goal [...] documented as of this encounter Care Teams Weight Shifter Relationship Specialty Start Date End Date Bridgette Gandhi MD [address] [place] [address] PCP - General Family Medicine 07/01/12 Ramón Bolaños, Bradley [address] [place] [address] Pharmacist Internal Medicine 11/18/23 documented as of this encounter
--- OUTSIDE RECORDS SUMMARY | 2025-05-03 10:17 | XMS_ITS | Encounter Summary ---
Author Organization [employer] Address [address] [facility] 7t [place] [address] Care Team Providers Care Sap Payroll Consultant Name Role Phone Bridgette Gandhi MD Primary Care Provider [phone] Ramón Bolaños PharmD Unavailable [phone] Reason for Visit * Reason Onset Date Comments Medication Question 06/24/2024 Encounter Details Date Type Department Care Team (Late st Contact Info) Description 06/24/2024 Telephone [facility] MEDICINE [address] [place], [place] [phone] Bridgette Gandhi MD [address] [place], [place] [phone] Medication Question Social History Tobacco Use Types [...] If any questions contact pt at [phone] documented in this encounter Plan of Treatment Upcoming Encounters Date Type Department Care Team (Late st Contact Info) Description 05/03/2025 11:00 AM EDT Office Visit [facility] MEDICINE [address] [place], [place] [phone] Bridgette Gandhi MD [address] [place] [address] Hypertension, unspecified type (Primary Dx) 08/09/2025 1:00 PM EST Office Visit [facility] ADULT DENTAL [address] [place] [address] Lydia Mac [address] [place] [address] documented as of this encounter Goals Goal Patient Goal Type Associated Problems Recent Progress Patient-Stated? Author Blood Pressure < 140/90 Blood Pressure 140/88(2024 11:39 AM EDT) No Ramón Bolaños PharmD Hemoglobin A1c < 7 Result Component 7.5( 11:15 AM EDT) No Ramón Bolaños, Bradley documented as of this encounter Visit Diagnoses Not on filedocumented in this encounter Additional Health Concerns Assessment Noted Time PHQ-9 Depression Total Score: 0 04/07/20 11:45 AM EDT documented as of this encounter Care Teams Sap Payroll Consultant Relationship Specialty Start Date End Date Bridgette Gandhi MD [address] [place] [address] PCP - General Family Medicine 07/01/12 Ramón Bolaños, Bradley [address] [place] [address] Pharmacist Internal Medicine 11/18/23 documented as of this encounter
--- OUTSIDE RECORDS SUMMARY | 2025-05-03 10:17 | XMS_ITS | Clinical Summary ---
Author Organization [employer] Address [address] [place] [address] 7[address] [place] [address] Care Team Providers Care Delivery Room Clerk Name Role Phone Bridgette Gandhi MD Primary Care Provider [phone] Ramón Bolaños PharmD Unavailable [phone] Allergies Active Allergy Reactions Criticality Noted Date [...] mL 12 3 Active Deep Sea Nasal [place] 0.65 % nasal spray USE 1-2 SPRAYS IN EACH NOSTRIL EVERY 2 TO 3 HOURS NEEDED FOR NASAL CONGESTION 30 mL 1 3 Active torsemide (Demadex) 20 MG tablet Take 20 mg by mouth in the morning. 4 Active Anoro Ellipta 62.5-25 MCG/ACT aerosol powder Inhale 1 puff in the morning. 4 Active magnesium oxide (Mag-Ox) 400 (240 Mg) MG tablet Take 400 mg by mouth Once per day. At bedtime. (Hold if loose stool occurs) 4 Active Lancets (OneTouch Delica Plus Ulifyo54R) miscIndications:T ype 2 diabetes mellitus without complications (CMS/[facility]) TEST BLOOD SUGAR TWICE DAILY 100 each [...] MORNING AND IN THE EVENING 4 Active atorvastatin (Lipitor) 40 MG tabletIndications :Dyslipidemia TAKE 1 TABLET BY MOUTH AT BEDTIME 30 tablet 11 5 Active lisinopril 40 MG tablet TAKE 1 TABLET BY MOUTH EVERY EVENING 90 tablet 3 5 Active loratadine (Claritin) 10 MG tablet TAKE 1 TABLET BY MOUTH EVERY DAY 30 tablet 11 5 Active OneTouch Ultra Test test strip TEST BLOOD SUGAR TWICE DAILY 50 strip 11 5 Active doxazosin (Cardura) 8 MG tablet TAKE 1/2 TABLET BY MOUTH AT BEDTIME 30 tablet 11 5 Active Diclofenac Sodium 1 % gelIndications: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 60 tablet 5 Active fluticasone (Flonase) 50 MCG/ACT nasal spray INSTILL 1-2 SPRAYS IN EACH NOSTRIL ONCE DAILY IN THE MORNING 16 g 2 5 Active finasteride (Proscar) 5 MG tablet TAKE 1 TABLET BY MOUTH EVERY MORNING 90 tablet 3 5 Active cholecalciferol (Vitamin D-3) 25 MCG tablet TAKE 1 TABLET BY MOUTH EVERY MORNING 90 tablet 3 5 Active metFORMIN XR (Glucophage-XR) 500 MG 24 hr tablet Take 1 tablet (500 mg) by mouth with breakfast and with evening meal. Do not crush, chew, or split. 180 tablet 3 Active Active Problems Problem Noted Date Diagnosed Date Odontalgia 08/24/2024 Lower urinary tract symptoms (LUTS) 08/04/2024 Bladder stones 08/04/2024 Assessment & Plan (11/04/2024 6:10 AM EDT): - following with [facility] urology, last seen on 09/26/24 - continue [...] and following plan per urologist Fractured dental confucianism with loss of materi al 08/01/2024 Caries [...] aorta measuring 4.00 cm - Followed by Project Director, monitor with echo every 6-12 months - Continue BP management Assessment & Plan (04/07/2024 11:49 AM EDT): - 11/26/23 Echo showed mild dilatation of the ascending aorta measuring 4.00 cm - Followed by Project Director, monitor with echo every 6-12 months - Continue BP management Assessment & Plan (01/04/2024 11:35 AM EDT): - 11/26/23 Echo showed mild dilatation of the ascending aorta measuring 4.00 cm - Followed by Project Director, monitor with echo every 6-12 months [...] (09/17/2023 11:17 AM EST): Pt of Dr. Gandhi with PMhx significant for spinal stenosis, chronic [...] WRITTEN ON 08/11/2024 6:10 AM BY BRIDGETTE GANDHI MD - following with neurology - previously [...] MRI on 04/14/23: mild chronic ischemic microangiopathy; [id number] generalized diffuse supratentorial and cerebellar vermian parenchymal [...] Plan (11/04/2023 12:40 PM EDT): -Seen by [facility] provider in Apr 2021. Recommended to continue conservative management of compression stocking, DASH diet, and leg elevation. Discontinued Diltiazem due to possible side effects. -possible venous ablation -06/02/23 venous study showed b/l venous insufficiency. -recommended to discuss with his dynamometer tuner and vascular specialist at [facility] for other treatment options, if appropriate -discontinued amlodipine and hydralazine recently - continue torsemide Assessment & Plan (08/14/2023 11:15 AM EST): -Seen by [facility] provider in Apr 2021. Recommended to continue conservative management of compression stocking, DASH diet, and leg elevation. Discontinued Diltiazem due to possible side effects. -possible venous ablation -06/02/23 venous study showed b/l venous insufficiency. -recommended to discuss with his dynamometer tuner and vascular specialist at [facility] for other treatment options, if appropriate Assessment & Plan (05/11/2023 8:29 AM EDT): -Seen by [facility] provider in Apr 2021. Recommended to continue conservative management of compression stocking, DASH diet, and leg elevation. Discontinued Diltiazem due to possible side effects. -possible venous ablation -schedule venous study Assessment & Plan (2022 9:36 AM EST): -Seen by [facility] provider in Apr 2021. Recommended to continue conservative management of compression stocking, DASH diet, and leg elevation. Discontinued Diltiazem due to possible side effects. -possible venous ablation Lumbar radiculopathy 2022 Assessment & Plan (12/27/2024 12:43 PM EDT): Pt of Dr. Gandhi with c/o acute pn chronic low back [...] APAP and diclofenac topical Referred back to [facility] Pain management Discussed with him and patient [...] safety today Dyslipidemia 06/26/2015 Assessment & Plan (02/13/2025 9:07 AM EDT): - Current medication: atorvastatin 40 [...] importance of lifestyle modification. Assessment & Plan (11/04/2024 11:31 AM EDT): [...] lifestyle modification. Hypertension 06/26/2015 Assessment & Plan (05/03/2025 5:38 AM EDT): -Goal BP < 130/80 per ACC/AHA guideline -usually in acceptable range at home, often [...] to pt's questionable adherence - comanaged with dynamometer tuner, card scraper, customer support assistant, and pharmacist - 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, negative Assessment & Plan (02/13/2025 9:07 AM EDT): -Goal BP < 130/80 per ACC/AHA guideline -usually in acceptable range at home, often [...] to pt's questionable adherence - comanaged with dynamometer tuner, card scraper, customer support assistant, and pharmacist - 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, negative Assessment & Plan (12/27/2024 12:48 PM EDT): [...] to pt's questionable adherence - co-managed with dynamometer tuner, card scraper, customer support assistant, and pharmacist - 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, [...] to pt's questionable adherence - comanaged with dynamometer tuner, card scraper, customer support assistant, and pharmacist - 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, [...] to pt's questionable adherence - comanaged with dynamometer tuner, card scraper, customer support assistant, and pharmacist - 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, [...] to pt's questionable adherence - comanaged with dynamometer tuner, card scraper, and pharmacist - check primary aldosteronism; may [...] to pt's questionable adherence - comanaged with dynamometer tuner, card scraper, and pharmacist - check primary aldosteronism; may [...] to pt's questionable adherence - comanaged with dynamometer tuner, card scraper, and pharmacist - check primary aldosteronism; may [...] to pt's questionable adherence - comanaged with dynamometer tuner, customer support assistant, and pharmacist -?24-hr ambulatory BP monitor result [...] type 2, controlled 03/03/2014 Assessment & Plan (02/13/2025 9:08 AM EDT): Dx 2013 - A1c 7.5% on 01/31/25, increased from 6.7% on 11/01/24 - A1c 7.0% 08/04/24, patient had been receiving steroid injection and received prednisone for COPD exacerbation -Continue metformin ER 500 mg once daily. Consider increasing to bid. -Consider GLP-1 RA -Continue working of lifestyle [...] if any problem arises Assessment & Plan (11/04/2024 11:29 AM EDT): [...] (chronic obstructive pulmonary disease) Assessment & Plan (02/17/2025 9:16 AM EDT): - Last exacerbation due to [...] recommendations by Dr. Castillo Assessment & Plan (12/27/2024 12:48 PM EDT): [...] the ascending aorta measuring 4.00 cm. Seeing [facility] Pulmonology Dr. Castillo last on 06/20/24, He [...] PLAN FOR COPD (CHRONIC OBSTRUCTIVE PULMONARY DISEASE) ([facility]) WRITTEN ON 08/13/2023 4:56 AM BY BRIDGETTE GANDHI MD Last exacerbation due to CAP in [...] WRITTEN ON 08/13/2023 4:56 AM BY BRIDGETTE GANDHI MD Exacerbation due to CAP in Aug [...] PLAN FOR COPD (CHRONIC OBSTRUCTIVE PULMONARY DISEASE) ([facility]) WRITTEN ON 05/11/2023 8:27 AM BY BRIDGETTE GANDHI MD Last exacerbation due to CAP in [...] WRITTEN ON 05/11/2023 8:26 AM BY BRIDGETTE GANDHI MD Exacerbation due to CAP in Aug [...] sleep apnea syndrome 01/07/2013 Assessment & Plan (02/17/2025 9:17 AM EDT): -Last sleep study on 07/22/2018. Dx SHANON -Restarted auto-PAP in 2019 -Currently followed by [facility] sleep clinic, last appointment in May 2023, auto-PAP 8-20 cm H2O -Continue current setting -Work on lifestyle modifications Assessment & Plan (11/01/2024 8:37 AM EDT): -Last sleep study on 07/22/2018. Dx SHANON -Restarted auto-PAP in 2019 -Currently followed by [facility] sleep clinic, last appointment in May 2023, auto-PAP 8-20 cm H2O -Continue current setting -Work on lifestyle modifications Assessment & Plan (08/25/2024 2:39 PM EST): -Last sleep study on 07/22/2018. Dx SHANON -Restarted auto-PAP in 2020 -[facility] [...] tobacco use disorder 01/07/2013 Assessment & Plan (02/17/2025 9:19 AM EDT): -Pt is followed by [facility]. -Last CT scan on 12/22/23 Lung RADS 2 -Continue working on smoking cessation effort -Will check when his next CT is scheduled Assessment & Plan (04/11/2024 6:17 AM EDT): [...] (11/04/2024 11:22 AM EDT): - following with [facility] Urology - s/p TURP and bladder stone [...] Encounters Date Type Department Care Team Description 05/03/2025 Travel 05/02/2025 Telephone [facility] [address] [place] [address] Bridgette Gandhi MD CHART PREP 04/11/[address] [place] [address] Bridgette Gandhi MD Records Request 04/06/2025 Orders Only [address] [address] Bridgette Gandhi MD Hypertension, unspecified type (Primary Dx); Venous insufficiency; Ascending aorta dilation (CMS/HCC) 04/06/[address] [place] [address] Bridgette Gandhi MD Referral 02/20/[address] [place] [address] Bridgette Gandhi MD Appointment Request 02/17/2025 Orders Only [address] [address] Bridgette Gandhi MD Osteoporosis screening (Primary Dx) 01/31/2025 11:15 AM EDT Office Visit [facility] [place] [address] Bridgette Gandhi MD Hypertension, unspecified type (Primary Dx); Controlled type 2 diabetes mellitus without complication, without long-term current use of insulin ([facility]); Dyslipidemia; Chronic obstructive pulmonary disease, unspecified COPD type ([facility]); Obstructive sleep apnea syndrome; History of tobacco use disorder 01/31/2025 Travel from Last 3 Months Immunizations Immunization Administration [...] Sign Reading Time Taken Comments Blood Pressure 140/88 01/31/2025 11:39 AM EDT Pulse 75 01/31/2025 11:15 AM EDT Temperature 36 C (96.8 F) 01/31/2025 11:15 AM EDT Respiratory Rate 15 01/31/2025 11:15 AM EDT Oxygen Saturation 96% 01/31/2025 11:15 AM EDT Inhaled Oxygen Concentration - - Weight 112 kg (246 lb 6.4 oz) 01/31/2025 11:15 A M EDT Height 167.6 cm (5' 6 ) 01/31/2025 11:15 AM EDT Body Mass Index 39.77 01/31/2025 11:15 AM EDT Plan of Treatment Upcoming Encounters Date Type Department Care Team (Late st Contact Info) Description 05/03/2025 11:00 AM EDT Office Visit [facility] [address] [place] [phone] Bridgette Gandhi MD [address] [place] [address] Hypertension, unspecified type (Primary Dx) 08/09/2025 1:00 PM EST Office Visit [facility] [address] [place] [address] Lydia Mac [address] [place] [address] Health Maintenance Due Date Last Done Comments Zoster Vaccines (2 of 3) 06/22/2017 04/27/2017 RSV Patients and Patients Aged 60 years or older (1 - 1-dose 75+ series) 2020 DTaP/Tdap/Td Vaccines (2 - Td or Tdap) 09/14/2023 09/14/2013, 01/23/1997, 01/23/1997 Dental Oral Exam 01/06/2025 07/08/2024, 03/2023, 06/20/2022 Depression Screening 04/07/2025 04/07/2024, 04/07/20 COVID-19 Vaccine ( season) 2025 Influenza Vaccine (#1) 2025 , 05/02/2020, 06/13/2019, Additional history exists Diabetes: Hemoglobin A1C 05/03/2025 025, 11/01/2024, 08/04/2024, Additional history exists Dental X-Ray: Full Mouth 06/21/2025 06/20/2022 Dental Prophylaxis 07/10/2025 01/06/2025, 1 09/07/2023, 12/28/2023, Additional history exists Alcohol/Substance Use Screening 08/04/2025 08/04/2024 Diabetes: Foot Exam 08/04/2025 08/04/2024, 08/13/2023, 08/13/2023, Additional history exists Dental X-Ray: Bitewings 09/13/2025 09/12/19 25, 07/08/2024, 06/24/2023 Diabetes: Urine Protein Screening 10/28/2025 10/28/2024, 11/18/2023, 04/28/2023, Additional history exists Lipid Panel 10/28/2025 10/28/2024, 04/0 10/2023, 01/21/2023, Additional history exists SDOH Screening 12/27/2025 12/27/2024 Tobacco Screening 01/31/2026 01/31/2025 Eye Exam 06/29/2026 06/29/2024 Pneumococcal Vaccine: 50+ [...] Pressure 140/88(2024 11:39 AM EDT) No Ramón Boalños PharmD Hemoglobin A1c < 7 Result Component 7.5( 11:15 AM EDT) No Ramón Bolaños PharmD Procedures Procedure Name Priority Date/Time Associated Diagnosis Comments POCT GLYCOSYLATED HEMOGLOBIN (HGB A1C) Routine 01/31/2025 11:15 AM EDT Controlled type 2 diabetes mellitus without complication, without long-term current use of insulin ([facility]) POCT GLUCOSE Routine 01/31/2025 11:14 AM EDT Controlled type 2 diabetes mellitus without complication, without long-term current use of insulin ([facility]) PROPHYLAXIS - ADULT Routine 01/06/2025 1 0:00 AM EDT Dental plaque ALBUMIN, RANDOM URINE W/CREATININE Routine 10/28/2024 9:15 AM EDT Controlled type 2 diabetes mellitus without complication, without long-term current use of insulin ([facility]) LIPID PANEL WITH REFLEX TO DIRECT LDL Routine 10/28/2024 9:15 AM EDT Controlled type 2 diabetes mellitus without complication, without long-term current use of insulin ([facility]) BITEWING - SINGLE RADIOGRAPHIC IMAGE Routine 09/12/2024 10:15 AM EST PERIODIC ORAL EVALUATION - ESTABLISHED PATIENT Routine 07/08/2024 9:00 AM EST HM DIABETES EYE EXAM Routine 06/29/2024 LDCT LUNG SCREENING Routine 12/22/2023 9 :58 AM EDT from Last 3 Months or Most Recently Relevant to Health Maintenance Results * (ABNORMAL) POCT glycosylated hemoglobin (Hgb A1c) (01/31/2025 11:15 AM EDT) Hemoglobin A1C 7.5(A) 4.0 - 6.0 % QC Media Lot # [id number] Lot# Expiration Date Blood Capillary blood specimen / Unknown 01/31/2025 11:15 AM EDT Bridgette Gandhi MD POINT OF CARE TEST ENTER/EDIT OR DERABLES Final Result * (ABNORMAL) POCT glucose manually resulted (01/31/2025 11:14 AM EDT) Glucose Blood, POC 228(A) 60 - 200 mg/dL QC Media Lot # [id number] Lot# Expiration Date Blood Capillary blood specimen / Unknown 01/31/2025 11:14 AM EDT Bridgette Gandhi MD POINT OF CARE TEST ENTER/EDIT OR DERABLES Final Result * Lipid Panel with Reflex to Direct LDL (10/28/2024 9:15 AM EDT) Triglycerides 125 <150 mg/dL [facility] Comment:Desirable Triglyceri de: less than 150 mg/dLBorderline High Triglyceride 150-199 mg/dLHigh Triglyceride: 200-499 mg/dLVery High Triglyceride: greater than or equal to 5OO mg/dL Cholesterol 126 <200 mg/dL [facility] Comment:Desirable Cholestero l: less than 200 mg/dLBorderline High Cholesterol: 200-239 mg/dLHigh Cholesterol: greater than 239 mg/dL LDL Cholesterol Calculated 58 <100 mg/dL [facility] Comment:Desirable LDL: less than 100 mg/dLNear Optimal/Above Optimal LDL: 110- 129 mg/dLBorderline High LDL: 130-159 mg/dLHigh LDL: 160-189 mg/dLVery High LDL: greater than or equal to 190 mg/dL HDL Cholesterol 43 >40 mg/dL [facility] Comment:Desirable HDL: great er than 40 mg/dL Note: This HDL assay may give artificially low results in patients with liver disease. Blood 10/28/2024 9:15 AM EDT 10/28/2024 11:15 AM EDT Bridgette Gandhi MD LAB BLOOD ORDERABLES Final Resul t Performing Organization Address [facility] de Phone Number [facility] [address] [place] [phone] * (ABNORMAL) Albumin, Random Urine W/Creatinine (10/28/2024 9:15 AM EDT) Creatinine, Urine 247.97 mg/dL [facility] Microalbumin Urine 145.0 mg/L [facility] Microalbum Creatinine Ratio Ur 58.4(H) <30 ug/mg cr [facility] Comment:Albumin/Creatinine R atio Reference Ranges: Normal: < 30 ug/mg creatinine Microalbuminuria: 30 - 300 ug/mg creatinineClinical Albuminuria: > 300 ug/mg creatinine Urine 10/28/2024 9:15 AM EDT 10/28/2024 11:14 AM EDT Bridgette Gandhi MD LAB URINE ORDERABLES Final Resul t Performing Organization Address [facility] de Phone Number [facility] [address] [place] [phone] * Hm Diabetes Eye Exam (06/29/2024) Eye Exam Normal Normal 06/29/2024 us Historical Provider HEALTH MAINTENANCE Final Result * CT Lung Screening Low dose (12/22/2023 9:58 AM EDT) Anatomical Region Laterality Modality Lung Computed Tomogra phy 12/22/2023 9:58 AM EDT Narrative 12/27/2023 11:40 PM EDT [address] [address] [address] Scan Report Signed Patient: Bharathi Walsh R#: [id number] : 1945 Acct:[id number] Age/Sex: 78 / M ADM Date: 12/22/23 Loc: HO.CT Attending Dr: Tc Castillo MD Ordering Physician: Tc Castillo MD Date of Service: 12/22/23 Procedure(s): CT lung screening Accession Number(s): [id number] cc: Tc Castillo MD; Bridgette Gandhi MD EXAMINATION: CT LUNG SCREENING CLINICAL INFORMATION: [...] for CT CHEST LOW DOSE CANCER SCREENING ([id number]) can be placed. Dictated By: Kun Enciso MD Signed By: <Electronically signed by Kun Enciso MD in OV> 12/27/23 2336 DD/ 0958 TD/TT: Medical Secretary Receptionist: SS Procedure Note Donotuseinterpreter, Image - 12/27/[address] [place] [address] [address] Scan Report Signed Patient: Shalom Walsh R#: [id number] : 6Acct:[id number] Age/Sex: 78 / MADM Date: 12/22/23 Loc: HO.CT Attending Dr: Tc Castillo MD Ordering Physician: Tc Castillo MD Date of Service: 12/22/23 Procedure(s): CT lung screening Accession Number(s): [id number] cc: Tc Castillo MD; Bridgette Gandhi MD EXAMINATION: CT LUNG SCREENING CLINICAL INFORMATION: [...] for CT CHEST LOW DOSE CANCER SCREENING ([id number]) can be placed. Dictated By: Kun Enciso MD Signed By: <Electronically signed by Kun Enciso MD in OV> 12/27/23 2336 DD/ 0958 TD/TT: Medical Secretary Receptionist: ANGELA [facility] External Provider IMG CT PROCEDURES Edited Result - Final from Last 3 Months or Most Recently Relevant to Health Maintenance Insurance * Guarantor: Bharathi Walsh Account Type Relation to Patient Date of Phone Billing Address Personal/Family Self 1945 [address] [place] [address] [facility] * Guarantor: Bharathi Walsh Account Type Relation to Patient Date of Phone Billing Address Personal/Family Self [address] [place] [address] * Guarantor: Bharathi Walsh Account Type Relation to Patient Date of Phone Billing Address Personal/Family Self [address] [place] [address] * Guarantor: Bharathi Walsh Account Type Relation to Patient Date of Phone Billing Address Personal/Family Self [address] [place] [address] Care Teams Delivery Room Clerk Relationship Specialty Start Date End Date Bridgette Gandhi MD [address] [place] [address] PCP - General Family Medicine 07/01/12 Ramón Bolaños, PharmD [address] [place] [phone] Pharmacist Internal Medicine 11/18/23
--- OUTSIDE RECORDS SUMMARY | 2025-05-03 10:17 | XMS_ITS | Encounter Summary ---
Author Organization [facility] Address [address] [place] [address] Phone Care Team Providers Care Life Insurance Agent Name Role Phone Unknown, Unknown Primary Care Provider Terrence montano Encounter Details Date Type Department Care Team (Late st Contact Info) Description 05/30/2019 Ancillary Orders [facility] [address] [place] [address] [place] [address] Sylvester Hdez, DO [address] [place] [address] Bradycardia Social History Tobacco Use Types Packs/Day Years Used Date Smoking Tobacco: Never Assessed Sex and Gender Information Value Date Recorded Sex Assigned at Not on file Legal Sex Male 2:08 PM EDT Gender Identity Not on file Sexual Orientation Not on file documented as of this encounter Plan of Treatment Not on file documented as of this encounter Results * Holter Monitor 24 Hours (05/30/2019 10:38 AM EDT) Anatomical Region Laterality Modality Heart Other Narrative 05/30/2019 11:53 AM EDT Holter monitor report Indication bradycardia Findings: The underlying rhythm is sinus rhythm and sinus bradycardia with an average heart rate of 54 bpm, minimal heart rate 39 bpm, maximal heart rate 81 bpm. There were very rare isolated PVCs. There were very rare isolated premature atrial contractions. No tachyarrhythmias. Conclusion: Sinus bradycardia with an average heart rate of 54 bpm and a minimum heart rate of 39 bpm. Patient is bradycardic less than 60 83% of the time. Procedure Note Kun Edward MD - 05/30/2019 Holter monitor report Indication bradycardia Findings: The underlying rhythm is sinus rhythm and sinus bradycardia with anaverage heart rate of 54 bpm, minimal heart rate 39 bpm, maximal heartrate 81 bpm. There were very rare isolated PVCs. There were very rare isolated premature atrial contractions. No tachyarrhythmias. Conclusion: Sinus bradycardia with an average heart rate of 54 bpm and a minimum heartrate of 39 bpm. Patient is bradycardic less than 60 83% of the time. Sylvester Hdez DO [facility] ORDERABLE S Final Result documented in this encounter Visit Diagnoses Diagnosis Bradycardia Other specified cardiac dysrhythmias Bradycardia Other specified cardiac dysrhythmias documented in this encounter Care Teams Life Insurance Agent Relationship Specialty Start Date End Date Unknown, Unknown, PCP - General 05/23/19 documented as of this encounter Additional Source Comments The information contained in this document represents components of the legal health record. It is not the complete legal health record.[facility]
--- OUTSIDE RECORDS SUMMARY | 2025-05-03 10:17 | XMS_ITS | Encounter Summary ---
Author Organization [employer] Address [address] [facility] 7t [place] [address] Care Team Providers Care Heater Helper Forge Name Role Phone Bridgette Gandhi MD Primary Care Provider Ramón Bolaños PharmD Unavailable Encounter Details Date Type Department Care Team (Late st Contact Info) Description 09/22/2023 Orders Only [facility] [address] [place], [place] [phone] Bridgette Gandhi MD [address] [place], [place] [phone] Chronic obstructive pulmonary disease, unspecified COPD type [...] Description 05/03/2025 11:00 AM EDT Office Visit [facility] [address] [place] [address] Bridgette Gandhi MD [address] [place] [address] Hypertension, unspecified type (Primary Dx) 08/09/2025 1:00 PM EST Office Visit [facility] [address] [place] [address] Greg Macaris [address] [place] [address] documented as of this encounter Visit Diagnoses Diagnosis Chronic obstructive pulmonary disease, unspecified COPD type ([facility])- Primary Obstructive sleep apnea syndrome Obstructive sleep apnea (adult) (pediatric) Hypertension, unspecified type- Primary documented in this encounter Additional Health Concerns Assessment Noted Time PHQ-9 Depression Total Score: 5 09/11/19 23 10:25 AM EST documented as of this encounter Care Teams Heater Helper Forge Relationship Specialty Start Date End Date Bridgette Gandhi MD [address] [place] [address] PCP - General Family Medicine 07/01/12 Ramón Bolaños, MollyD [address] [place] [address], [place] [address] Pharmacist Internal Medicine 11/18/23 documented as of this encounter
--- OUTSIDE RECORDS SUMMARY | 2025-05-03 10:17 | XMS_ITS | Encounter Summary ---
Author Organization [facility] Address [address] [place] [address] 7t [place] [address] Care Team Providers Care Avionics Manager Name Role Phone Bridgette Gandhi MD Primary Care Provider [phone] Ramón Bolaños PharmD Unavailable [phone] Encounter Details Date Type Department Care Team (Latest Contact Info) Description 06/20/2022 Abstract [facility] Dental, Provider, DDS Social History [...] Description 05/03/2025 11:00 AM EDT Office Visit [facility] [address] [place] [address] Bridgette Gandhi MD [address] [place] [address] Hypertension, unspecified type (Primary Dx) 08/09/2025 1:00 PM EST Office Visit [facility] [address] [place] [address] Lydia Mac [address] [place] [address] documented as of this encounter Visit Diagnoses Not on filedocumented in this encounter Care Teams Avionics Manager Relationship Specialty Start Date End Date Bridgette Gandhi MD 230 [place], [place] [phone] PCP - General Family Medicine 07/01/12 Ramón Bolaños, MollyD [address] [place], [place] [phone] Pharmacist Internal Medicine 11/18/23 documented as of this encounter
--- OUTSIDE RECORDS SUMMARY | 2025-05-03 10:17 | XMS_ITS | Encounter Summary ---
Author Organization [employer] Address [address] [facility] 7t [place] [address] Care Team Providers Care Internal Grinder Name Role Phone Bridgette Gandhi MD Primary Care Provider Ramón Bolaños PharmD Unavailable [phone] Encounter Details Date Type Department Care Team (Late st Contact Info) Description 09/04/2023 Orders Only [facility] 230 [place], [place] [phone] Bridgette Gandhi MD 230 [place], [place] [phone] Chronic pain of both knees (Primary Dx) [...] Description 05/03/2025 11:00 AM EDT Office Visit [facility] 230 [place] [address] Bridgette Gandhi MD [address] [place] [address] Hypertension, unspecified type (Primary Dx) 08/09/2025 1:00 PM EST Office Visit [facility] [address] [place] [address] Bubba, Lydia [address] [place] [address] documented as of this encounter Visit Diagnoses Diagnosis Chronic pain of both knees- Primary Hypertension, unspecified type- Primary documented in this encounter Additional Health Concerns Assessment Noted Time PHQ-9 Depression Total Score: 5 09/11/19 23 10:25 AM EST documented as of this encounter Care Teams Internal Grinder Relationship Specialty Start Date End Date Bridgette Gandhi MD [address] [place] [address] PCP - General Family Medicine 07/01/12 Ramón Bolaños, MollyD [address] [place] [address] Pharmacist Internal Medicine 11/18/23 documented as of this encounter
--- OUTSIDE RECORDS SUMMARY | 2025-05-03 10:17 | XMS_ITS | Clinical Summary ---
Author Organization [facility] [address] [place] [address] Phone Care Team Providers Care Electrical Engineering Manager Name Role Phone Bridgette Gandhi MD Primary Care Provider [phone] Allergies Active Allergy Reactions Criticality Noted Date [...] Office Visit [facility] [address] [place] [address] Gómez Colunga [...] Visit [facility] the [address] [place] [address] Gómez Colunga MD [address] [facility] [address] [place] [address] Health Maintenance Due Date Last Done Comments [...] patient's age to complete this topic Insurance [facility] ([id number]) [facility] ([id number]) Care Teams Electrical Engineering Manager Relationship Specialty Start Date End Date Bridgette Gandhi MD [address] [place] [address] PCP - General 08/27/20
--- OUTSIDE RECORDS SUMMARY | 2025-05-03 10:17 | XMS_ITS | Encounter Summary ---
Author Organization [employer] Address [address] [place] [address] 7t [place] [address] Care Team Providers Care Locomotive Inspector Name Role Phone Bridgette Gandhi MD Primary Care Provider [phone] Ramón Bolaños PharmD Unavailable [phone] Reason for Referral * Consultation (Routine) - Authorized Specialty Diagnoses / Procedures Referred By Jj bro Referred To Contact Cardiology Diagnoses Hypertension, unspecified type Venous insufficiency Ascending aorta dilation (CMS/HCC) Bridgette Gandhi MD [address] [place] [address] Phone: tel: fax: [facility] Referral ID Status Reason Start Date Expiration Date Visits Requested Visits Authorized [id number] Authorized Specialty Services Required 04/06/2025 04/06/2026 1 1 Encounter Details Date Type Department Care Team (Late st Contact Info) Description 04/06/2025 Orders Only [facility] [address] [place], [place] [phone] Bridgette Gandhi MD [address] [place], [place] [phone] Hypertension, unspecified type (Primary Dx); Venous insufficiency; Ascending aorta dilation (CMS/HCC) Social History Tobacco Use Types Packs/Day Years [...] Description 05/03/2025 11:00 AM EDT Office Visit [facility] [address] [place] [address] Bridgette Gandhi MD [address] [place], [place] [phone] Hypertension, unspecified type (Primary Dx) 08/09/2025 1:00 PM EST Office Visit [facility] [address] [place] [address] Lydia Mac 230 [place] [address] Scheduled Referrals Name Type Priority Associated Diagnoses Orde r Schedule Referral to Cardiology Outpatient Referral Routine Hypertension, unspecified type Venous insufficiency Ascending aorta dilation (CMS/HCC) Expected: 04/06/2025 (Approximate), Expires: 04/06/2026 documented as of this encounter Goals Goal Patient Goal Type Associated Problems Recent Progress Patient-Stated? Author Blood Pressure < 140/90 Blood Pressure 140/88(2024 11:39 AM EDT) No Ramón Bolaños PharmD Hemoglobin A1c < 7 Result Component 7.5( 11:15 AM EDT) No Ramón Bolaños PharmD documented as of this encounter Visit Diagnoses Diagnosis Hypertension, unspecified type- Primary Venous insufficiency Unspecified venous (peripheral) insufficiency Ascending aorta dilation (CMS/HCC) Thoracic aneurysm without mention of rupture Hypertension, unspecified type- Primary documented in this encounter Additional Health Concerns Assessment Noted Time PHQ-9 Depression Total Score: 0 04/07/20 11:45 AM EDT documented as of this encounter Care Teams Locomotive Inspector Relationship Specialty Start Date End Date Bridgette Gandhi MD [address] [place] [address] PCP - General Family Medicine 07/01/12 Ramón Bolaños PharmD [address] [place] [address] Pharmacist Internal Medicine 11/18/23 documented as of this encounter
--- OUTSIDE RECORDS SUMMARY | 2025-05-03 10:17 | XMS_ITS | Encounter Summary ---
Author Organization [employer] [facility] Address [address] [place] [address] 7t [place] [address] Care Team Providers Care Turn Supervisor Name Role Phone Bridgette Gandhi MD Primary Care Provider [phone] Ramón Bolaños PharmD Unavailable [phone] Encounter Details Date Type Department Care Team (Late st Contact Info) Description 07/30/2022 Abstract [facility] [address] [place] [address] Lydia Mac [address] [place] [address] Social History Tobacco Use Types Packs/Day Years [...] Description 05/03/2025 11:00 AM EDT Office Visit [facility] [address] [place], [place] [phone] Bridgette Gandhi MD [address] [place], [place] [phone] Hypertension, unspecified type (Primary Dx) 08/09/2025 1:00 PM EST Office Visit [facility] [address] [place], [place] [phone] Lydia Mac [address] [place] [address] documented as of this encounter Procedures Procedure [...] AM EST 5 B(V) COMPOSITE FILLING Routine 12:00 AM EST 3 B(V) COMPOSITE FILLING Routine 12:00 AM EST 31 EXTRACTION Routine 07/30/2022 12:00 AM EST 17 EXTRACTION Routine 07/30/2022 12:00 AM EST 15 EXTRACTION Routine 07/30/2022 12:00 AM EST 1 EXTRACTION Routine 07/30/2022 12:00 AM EST documented in this encounter Visit Diagnoses Not on filedocumented in this encounter Care Teams Turn Supervisor Relationship Specialty Start Date End Date Bridgette Gandhi MD [address] [place] [address] PCP - General Family Medicine 07/01/12 Ramón Bolaños PharmD [address] [place] [address] Pharmacist Internal Medicine 11/18/23 documented as of this encounter
--- OUTSIDE RECORDS SUMMARY | 2025-05-03 10:17 | XMS_ITS | Encounter Summary ---
Author Organization [employer] Address [address] [facility] 7t [place] [address] Care Team Providers Care Admissions Representative Name Role Phone Bridgette Gandhi MD Primary Care Provider [phone] Ramón Bolaños PharmD Unavailable [phone] Reason for Visit * Reason Onset Date Comments Referral 08/27/2023 Encounter Details Date Type Department Care Team (Late st Contact Info) Description 08/27/2023 Telephone [facility] [address] [place], [place] [phone] Bridgette Gandhi MD [address] [place], [place] [phone] Referral Social History Tobacco Use Types Packs/Day [...] 08/27/2023 1:13 PM EST TC from pt's daughter/FARM MARKETER requesting a renewal of Referral Date of original referral: 09/11/23 Location: [facility] (unsure of exact location) Date: 09/03/23 Time: 3:15 Fax: N/A Specialty: Orthopedic documented in this encounter Plan of Treatment Upcoming Encounters Date Type Department Care Team (Late st Contact Info) Description 05/03/2025 11:00 AM EDT Office Visit [facility] [address] [place] [address] Bridgette Gandhi MD [address] [place] [address] Hypertension, unspecified type (Primary Dx) 08/09/2025 1:00 PM EST Office Visit [facility] ADULT DENTAL [address] [place] [address] Bubba, Lydia [address] [place] [address] documented as of this encounter Visit Diagnoses Not on filedocumented in this encounter Additional Health Concerns Assessment Noted Time PHQ-9 Depression Total Score: 5 09/11/19 23 10:25 AM EST documented as of this encounter Care Teams Admissions Representative Relationship Specialty Start Date End Date Bridgette Gandhi MD [address] [place] [address] PCP - General Family Medicine 07/01/12 Ramón Bolaños, MollyD [address] [place] [phone] Pharmacist Internal Medicine 11/18/23 documented as of this encounter
[2025-05-03 10:39] LABS: PSA,Total (Free>4and<10) 1.14 ng/mL (0.00-4.00)
== END 2025-05-03 08:50 | disposition home or self-care (01) ==
LOC: HO.LAB 08:49
PROVIDERS: PCP Family Medicine; Visit Provider Urology
DX: Z12.5 Encounter for screening for malignant neoplasm of prostate (principal)
CPT/HCPCS: 36415; 84153

== ENCOUNTER 2025-05-16 06:57 | Outpatient (AMB) | payer OTHER, SELFPAY ==
--- OUTSIDE RECORDS SUMMARY | 2025-05-16 07:00 | XMS_ITS | Clinical Summary ---
Author Organization [employer] Address [address] [place] [address] Care Team Providers Care Cost Accounting Clerk Name Role Phone Bridgette Fagan MD Primary Care Provider [phone] Ramón Bolaños PharmD Unavailable [phone] Allergies Active Allergy Reactions Criticality Noted Date [...] 12 04/27/20 23 Active Deep Sea Nasal Delphia 0.65 % nasal spray USE 1-2 SPRAYS [...] if loose stool occurs) 12/02/19 24 Active Lancets (OneTouch Delica Plus [id number]) miscIndications: Type 2 diabetes mellitus without complications (HCC) TEST BLOOD SUGAR TWICE DAILY 100 each [...] AND IN THE EVENING 06/30/20 24 Active atorvastatin (Lipitor) 40 MG tabletIndication s:Dyslipidemia TAKE 1 TABLET BY MOUTH AT BEDTIME 30 tablet 11 09/16/19 25 Active lisinopril 40 MG tablet TAKE 1 TABLET BY MOUTH EVERY EVENING 90 tablet 3 11/17/19 25 Active loratadine (Claritin) 10 MG tablet TAKE 1 TABLET BY MOUTH EVERY DAY 30 tablet 11 11/17/19 25 Active OneTouch Ultra Test test strip TEST BLOOD SUGAR TWICE DAILY 50 strip 11 12/10/19 25 Active doxazosin (Cardura) 8 MG tablet TAKE 1/2 TABLET BY MOUTH AT BEDTIME 30 tablet 11 12/17/19 25 Active Diclofenac Sodium 1 % gelIndications:S delroy stenosis of lumbar region with neurogenic claudication Apply to affected area twice a day 100 g 12/28/19 25 Active acetaminophen (Tylenol) 500 MG tabletIndication s:Spinal stenosis of lumbar region with neurogenic claudication Take 2 tablets (1,000 mg) by mouth every 8 (eight) hours if needed for mild pain. 60 tablet 12/28/19 25 Active fluticasone (Flonase) 50 MCG/ACT nasal spray INSTILL 1-2 SPRAYS IN EACH NOSTRIL ONCE DAILY IN THE MORNING 16 g 2 01/11/20 25 Active finasteride (Proscar) 5 MG tablet TAKE 1 TABLET BY MOUTH EVERY MORNING 90 tablet 3 01/17/20 25 Active cholecalciferol (Vitamin D-3) 25 MCG tablet TAKE 1 TABLET BY MOUTH EVERY MORNING 90 tablet 3 01/17/20 25 Active metFORMIN XR (Glucophage-XR) 500 MG 24 hr tablet Take 1 tablet (500 mg) by mouth with breakfast. Do not crush, chew, or split. 90 tablet 3 05/03/20 25 Active metFORMIN XR (Glucophage-XR) 500 MG 24 hr tablet Take 1 tablet (500 mg) by mouth with breakfast and with evening meal. Do not crush, chew, or split. 180 tablet 3 02/18/20 25 2024 Discontinued(R eorder (will not trigger notification to Pharmacy)) Active Problems Problem Noted Date Diagnosed Date Odontalgia 08/24/2024 Lower urinary tract symptoms (LUTS) 08/04/2024 Bladder stones 08/04/2024 Assessment & Plan (11/04/2024 6:10 AM EDT): - following with [facility], last seen on 09/26/24 - continue adequate hydration - s/p bladder stone removal on 09/13/24 Assessment & Plan (08/25/2024 2:37 PM EST): - following with [facility], last seen on 07/03/24 for cystoscopy - continue adequate hydration - scheduled for bladder stone removal with Dr. Ayala Assessment & Plan (08/11/2024 6:19 AM EST): - following with [facility], last seen on 07/03/24 for cystoscopy -recommended adequate hydration and following plan per urologist Fractured dental faith with loss of materi al 08/01/2024 Caries [...] Ascending aorta dilation 01/04/2024 Assessment & Plan (05/15/2025 7:00 AM EDT): - 11/26/23 Echo showed mild dilatation of the ascending aorta measuring 4.00 cm - Followed by Tutoring Manager, monitor with echo every 6-12 months - Continue BP management - Referred to [facility] cardiology per patient's family's request since [facility] moved to [place] Assessment & Plan (11/04/2024 6:07 AM EDT): - 11/26/23 Echo showed mild dilatation of the ascending aorta measuring 4.00 cm - Followed by Tutoring Manager, monitor with echo every 6-12 months - Continue BP management Assessment & Plan (04/07/2024 11:49 AM EDT): - 11/26/23 Echo showed mild dilatation of the ascending aorta measuring 4.00 cm - Followed by Tutoring Manager, monitor with echo every 6-12 months - Continue BP management Assessment & Plan (01/04/2024 11:35 AM EDT): - 11/26/23 Echo showed mild dilatation of the ascending aorta measuring 4.00 cm - Followed by Tutoring Manager, monitor with echo every 6-12 months - Continue BP management Periodic limb movement disorder (PLMD) Assessment & Plan (05/15/2025 7:03 AM EDT): - Noted on his last sleep study - Previously seeing [facility] neurology / sleep medicine clinic. Reconnect care. Assessment & Plan (08/11/2024 6:06 AM EST): [...] at his 3-month follow-up. Assessment & Plan (05/15/2025 7:04 AM EDT): - Evaluated by neurologist, Dr. 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 Dez - continue having social interaction, music, physical [...] Plan (11/04/2023 12:40 PM EDT): -[facility] Recommended to continue conservative management of compression stocking, DASH diet, and leg elevation. Discontinued Diltiazem due to possible side effects. -possible venous ablation -06/02/23 venous study showed b/l venous insufficiency. -recommended to discuss with his sheet metal worker supervisor and vascular specialist at [facility] for other treatment options, if appropriate -discontinued amlodipine and hydralazine recently - continue torsemide Assessment & Plan (08/14/2023 11:15 AM EST): -[facility] Apr [facility]. Recommended to continue conservative management of compression stocking, DASH diet, and leg elevation. Discontinued Diltiazem due to possible side effects. -possible venous ablation -06/02/23 venous study showed b/l venous insufficiency. -recommended to discuss with his sheet metal worker supervisor and vascular specialist at [facility] for other treatment options, if appropriate Assessment & Plan (05/11/2023 8:29 AM EDT): -[facility]. Recommended to continue conservative management of compression stocking, DASH diet, and leg elevation. Discontinued Diltiazem due to possible side effects. -possible venous ablation -schedule venous study Assessment & Plan (2022 9:36 AM EST): -[facility]. Recommended to continue conservative management of compression stocking, DASH diet, and leg elevation. Discontinued Diltiazem due to possible side effects. -possible venous ablation Lumbar radiculopathy 2022 Assessment & Plan (05/15/2025 7:07 AM EDT): - last evaluated by body painter in March 2025 - last injection treatment left L3-L4 transforaminal epidural steroid injection for lumbar radiculopathy and lumbar degenerative disc disease in February 2025 Assessment & Plan (12/27/2024 12:43 PM EDT): [...] and diclofenac topical Referred back to [facility] management Discussed with him and patient [...] disc disease, lumbar 09/24/2022 Assessment & Plan (05/15/2025 7:08 AM EDT): - Continue Tylenol prn - Following with Pain management, [facility] - last injection treatment left L3-L4 transforaminal epidural steroid injection for lumbar radiculopathy and lumbar degenerative disc disease in February 2025 - Previously tried PT; declined further PT, but agreed to see Dr. Hoang - MRI on 09/29/22 showing spinal stenosis with compression of the Exiting right L5 nerve root. 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, [...] to pt's questionable adherence - co-managed with sheet metal worker supervisor, assembly inspector, university librarian, and pharmacist - 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, [...] to pt's questionable adherence - comanaged with sheet metal worker supervisor, assembly inspector, university librarian, and pharmacist - 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, [...] to pt's questionable adherence - comanaged with sheet metal worker supervisor, assembly inspector, university librarian, and pharmacist - 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, [...] to pt's questionable adherence - comanaged with sheet metal worker supervisor, assembly inspector, and pharmacist - check primary aldosteronism; may [...] to pt's questionable adherence - comanaged with sheet metal worker supervisor, assembly inspector, and pharmacist - check primary aldosteronism; may [...] to pt's questionable adherence - comanaged with sheet metal worker supervisor, assembly inspector, and pharmacist - check primary aldosteronism; may [...] to pt's questionable adherence - comanaged with sheet metal worker supervisor, university librarian, and pharmacist -?24-hr ambulatory BP monitor result [...] type 2, controlled 03/03/2014 Assessment & Plan (05/15/2025 7:02 AM EDT): Dx 2013 - A1c 7.5% on 01/31/25, increased from 6.7% on 11/01/24. Patient was receiving steroid injection. Patient will no longer receive steroid injection and would like to improve his diet, rather than taking metformin bid. -Continue metformin ER 500 mg once daily. He had diarrhea while taking it bid. -Consider GLP-1 RA -Continue working of [...] if any problem arises Assessment & Plan (02/13/2025 9:08 AM EDT): [...] treated with azithromycin. - Restarted seeing [facility] providers. Seen by Dr. Castillo on [...] (12/27/2024 12:48 PM EDT): Pt c/o intermittent DAIGEL, denies any chest pain Pt has gained [...] ascending aorta measuring 4.00 cm. Seeing [facility]. Castillo last on 06/20/24, He [...] treated with azithromycin. - Restarted seeing [facility] providers. Seen by Dr. Castillo on [...] treated with azithromycin. - Restarted seeing [facility] providers. Seen by Dr. Castillo on [...] treated with azithromycin. - Restarted seeing [facility] providers. Seen by Dr. Castillo on [...] prednisone and azithromycin. - Restarted seeing [facility] providers. Seen by Dr. Castillo on [...] prednisone and azithromycin. - Restarted seeing [facility] providers. Seen by Dr. Castillo on [...] prednisone and azithromycin. - Restarted seeing [facility] providers. Last seen by Dr. Castillo [...] PLAN FOR COPD (CHRONIC OBSTRUCTIVE PULMONARY DISEASE) ([facility]) WRITTEN ON 08/13/2023 4:56 AM BY BRIDGETTE FAGAN MD Last exacerbation due to CAP in Aug 2017 Following with [facility] pulmonology, Dr. Cruz Continue Advair as maintenance. [...] PLAN FOR COPD (CHRONIC OBSTRUCTIVE PULMONARY DISEASE) ([facility]) WRITTEN ON 05/11/2023 8:27 AM BY BRIDGETTE FAGAN MD Last exacerbation due to CAP in Aug 2017 Following with [facility] pulmonology, Dr. Cruz Continue Advair as maintenance. [...] CAP in Aug 2017 Following with [facility] pulmonology, Dr. Cruz Continue Advair as maintenance. [...] hematuria 01/07/2013 Obesity 01/07/2013 Assessment & Plan (05/04/2025 9:08 PM EDT): Continue working on lifestyle modifications. Generic [...] equivalent combination of moderate- and vigorous-intensity activity Assessment & Plan (11/04/2024 11:29 AM EDT): [...] sleep apnea syndrome 01/07/2013 Assessment & Plan (05/15/2025 7:03 AM EDT): -Last sleep study on 07/22/2018. Dx SHANON -Restarted auto-PAP in 2019 -Currently followed by [facility] sleep clinic, last appointment in May 2024, auto-PAP 8-20 cm H2O -Continue current setting -Work on lifestyle modifications Assessment & Plan (02/17/2025 9:17 AM EDT): -Last sleep study on 07/22/2018. Dx SHANON -Restarted auto-PAP in 2020 -Currently followed by [facility] sleep clinic, last appointment in May 2023, auto-PAP 8-20 cm H2O -Continue current setting -Work on lifestyle modifications Assessment & Plan (11/01/2024 8:37 AM EDT): -Last sleep study on 07/22/2018. Dx SHANON -Restarted auto-PAP in 2019 -Currently followed by [facility] sleep clinic, last appointment in May 2023, auto-PAP 8-20 cm H2O -Continue current setting -Work on lifestyle modifications Assessment & Plan (08/25/2024 2:39 PM EST): -Last sleep study on 07/22/2018. Dx SHANON -Restarted auto-PAP in 2019 -Currently followed by [facility] sleep clinic, last appointment in May 2023, auto-PAP 8-20 cm H2O -Continue current setting -Work on lifestyle modifications Assessment & Plan (08/04/2024 10:59 PM EST): -Last sleep study on 07/22/2018. Dx SHANON -Restarted auto-PAP in 2019 -Currently followed by [facility] sleep [facility], last appointment in May 2023, auto-PAP 8-20 cm H2O -Continue current setting -Work on lifestyle modifications Assessment & Plan (04/07/2024 11:48 AM EDT): -Last sleep study on 07/22/2018. Dx SHANON -Restarted auto-PAP in 2019 -Currently followed by [facility] sleep clinic, last appointment in May 2023, auto-PAP 8-20 cm H2O -Continue current setting -Work on lifestyle modifications Assessment & Plan (08/13/2023 4:54 AM EST): -Last sleep study on 07/22/2018. Dx SHANON -Restarted auto-PAP in 2019 -Currently followed by [facility] sleep clinic, last appointment in May 2023, auto-PAP 8-20 cm H2O -Continue current setting -Work on lifestyle modifications Assessment & Plan (05/11/2023 8:26 AM EDT): -Last sleep study on 07/22/2018. Dx SHANON -Restarted auto-PAP in 2019 -Currently followed by [facility] sleep clinic, last appt in 12/31/21, auto-PAP 8-20 cm H2O -Pt received new CPAP machine and now scheduled for Mask Fitting d/t pain on his head. -Continue current setting -Work on lifestyle modifications -Will request [facility] sleep medicine clinic to follow up and provide recommendation. Assessment & Plan (01/21/2023 10:57 AM EDT): -Last sleep study on 07/22/2018. Dx SHANON -Restarted auto-PAP in 2019 -Currently followed by [facility] sleep [facility], last appt in 11/13/22 , New CPAP was prescribed. APAP 8-20 cmH2O. -Continue current setting -Work on lifestyle modifications Assessment & Plan (2022 2:08 PM EST): -Last sleep study on 07/22/2018. Dx SHANON -Restarted auto-PAP in 2019 -Currently followed by [facility] [place] clinic, last appt in 12/31/21, auto-PAP 8-20 cm H2O -Pt received new CPAP machine and now scheduled for Mask Fitting d/t pain on his head. -Continue current setting -Work on lifestyle modifications -Will request [facility] sleep medicine clinic to follow up and provide recommendation. Assessment & Plan (09/24/2022 10:57 AM EST): -Last sleep study on 07/22/2018. Dx SHANON -Restarted auto-PAP in 2019 -Currently followed by [facility] sleep clinic, last appt in 12/31/21, auto-PAP [...] with Lung Cancer screening program in [facility] for next [place] scan schedule -Continue working [...] 11:22 AM EDT): - following with [facility] - s/p TURP and bladder stone removal on 09/13/24 - continue doxazosin and finasteride Assessment & Plan (08/25/2024 2:37 PM EST): - following with [facility] - continue doxazosin and finasteride Assessment & Plan (08/11/2024 6:20 AM EST): - following with [facility] - continue doxazosin and finasteride Assessment [...] Date Type Department Care Team Description 05/03/2025 11:00 AM EDT Office Visit [facility] [place] [address] Bridgette Fagan MD Hypertension, unspecified type (Primary Dx); Class 2 severe obesity due to excess calories with serious comorbidity and body mass index (BMI) of 38.0 to 38.9 in adult (CMS/HCC); Controlled type 2 diabetes mellitus without complication, without long-term current use of insulin (CMS/HCC); Jerking movements of extremities; Involuntary movements; Obstructive sleep apnea syndrome; Alzheimer disease (CMS/HCC); Periodic limb movement disorder (PLMD); Degeneration of intervertebral disc of lumbar region, unspecified whether pain present; Lumbar radiculopathy; Ascending aorta dilation (CMS/HCC); Tremor; Memory difficulties 05/03/2025 Orders Only GENERIC EXTERNAL DATA DEPARTMENT Provider, Generic External Data 05/03/2025 Travel 05/02/2025 Telephone [facility] [place] [address] Bridgette Fagan MD CHART PREP 04/11/2025 Telephone [facility] [address] Bridgette Fagan MD Records Request 04/06/2025 Orders Only [facility] [address] Bridgette Fagan MD Hypertension, unspecified type (Primary Dx); Venous insufficiency; Ascending aorta dilation (CMS/HCC) 04/06/2025 Telephone [facility] [address] Bridgette Fagan MD Referral 02/20/2025 Telephone [facility] [place] [address] Bridgette Fagan MD Appointment Request 02/17/2025 Orders Only [facility] [address] Bridgette Fagan MD Osteoporosis screening (Primary Dx) from Last 3 Months Immunizations Immunization Administration [...] Answer Date Recorded Patient Health Questionnaire-9 Score 4 05/03/2025 Patient Health Questionnaire-9 Score 4 05/03/2025 Last PHQ-9: Questionnaire Data Not on file 0 05/03/2025 Housing Stability Answer Date Recorded What is your housing situation today? I have bertrand sing 12/27/[address] you li [...] Date Recorded Patient Health Questionnaire-2 Score 2 05/03/2025 Internet Access Answer Date Recorded Internet Access [...] Sign Reading Time Taken Comments Blood Pressure 136/72 05/03/2025 11:04 AM EDT Pulse 58 05/03/2025 10:43 AM EDT Temperature 35.5 C (95.9 F) 05/03/2025 10:43 AM EDT Respiratory Rate 17 05/03/2025 10:43 AM EDT Oxygen Saturation 97% 05/03/2025 10:43 AM EDT Inhaled Oxygen Concentration - - Weight 111 kg (243 lb 12.8 oz) 05/03/2025 10:43 AM EDT Height 167.6 cm (5' 6 ) 05/03/2025 10:43 AM EDT Body Mass Index 39.35 05/03/2025 10:43 AM EDT Plan of Treatment Upcoming Encounters Date Type Department Care Team (Late st Contact Info) Description 07/10/2025 1:30 PM EST Office Visit [facility] [address], [place] [phone] Greg Macaris [address] [place] [address] Health Maintenance Due Date Last Done Comments Zoster Vaccines (2 of 3) 06/22/2017 04/27/2017 RSV Patients and Patients Aged 60 years or older (1 - 1-dose 75+ series) 2020 DTaP/Tdap/Td Vaccines (2 - Td or Tdap) 09/14/2023 09/14/2013, 01/23/1997, 01/23/1997 Dental Oral Exam 01/06/2025 07/08/2024, 03/2023, 06/20/2022 COVID-19 Vaccine ( season) 2025 Influenza Vaccine (#1) 2025 , 05/02/2020, 06/13/2019, Additional history exists Diabetes: Hemoglobin A1C 05/03/2025 025, 11/01/2024, 08/04/2024, Additional history exists Dental X-Ray: Full Mouth 06/21/2025 06/20/2022 Dental Prophylaxis 07/10/2025 01/06/2025, 1 09/07/2023, 12/28/2023, Additional history exists Diabetes: Foot Exam 08/04/2025 08/04/2024, 08/13/2023, 08/13/2023, Additional history exists Dental X-Ray: Bitewings 09/13/2025 09/12/19 25, 07/08/2024, 06/24/2023 Diabetes: Urine Protein Screening 10/28/2025 10/28/2024, 11/18/2023, 04/28/2023, Additional history exists Lipid Panel 10/28/2025 10/28/2024, 04/0 10/2023, 01/21/2023, Additional history exists SDOH Screening 12/27/2025 12/27/2024 Alcohol/Substance Use Screening 05/03/2026 05/03/2025 Depression Screening 05/03/2026 05/03/2025, 05/03/20 Tobacco Screening 05/03/2026 05/03/2025 Eye Exam 06/29/2026 06/29/2024 Pneumococcal Vaccine: 50+ [...] Author Blood Pressure < 140/90 Blood Pressure 136/72(2024 11:04 AM EDT) No Ramón Bolaños PharmD Hemoglobin A1c < 7 Result Component 7.5( 11:15 AM EDT) No Ramón Bolaños PharmD Procedures Procedure Name Priority Date/Time Associated Diagnosis Comments PSA, TOTAL WITH REFLEX TO PSA, FREE Routine 05/03/2025 9:01 AM EDT POCT GLYCOSYLATED HEMOGLOBIN (HGB A1C) Routine 01/31/2025 11:15 AM EDT Controlled type 2 diabetes mellitus without complication, without long-term current use of insulin ([facility]) PROPHYLAXIS - ADULT Routine 01/06/2025 1 0:00 AM EDT Dental plaque ALBUMIN, RANDOM URINE W/CREATININE Routine 10/28/2024 9:15 AM EDT Controlled type 2 diabetes mellitus without complication, without long-term current use of insulin ([facility]) LIPID PANEL WITH REFLEX TO DIRECT LDL Routine 10/28/2024 9:15 AM EDT Controlled type 2 diabetes mellitus without complication, without long-term current use of insulin ([facility]) BITEWING - SINGLE RADIOGRAPHIC IMAGE Routine 09/12/2024 10:15 AM EST PERIODIC ORAL EVALUATION - ESTABLISHED PATIENT Routine 07/08/2024 9:00 AM EST HM DIABETES EYE EXAM Routine 06/29/2024 LDCT LUNG SCREENING Routine 12/22/2023 9 :58 AM EDT from Last 3 Months or Most Recently Relevant to Health Maintenance Results * PSA, Total With Reflex to PSA, Free (05/03/2025 9:01 AM EDT) PSA,Total (Free>4and<10) 1.14 0.00 - 4.00 ng/mL [facility] Comment:A Free PSA was not p erformed: The percentage of Free PSA can be used to enhance the differentiation of prostate cancer from benign prostatic disease in subjects whose PSA levels are between 4.0 and 10.0 ng/mL. For subjects whose PSA levels are below 4.0 or above 10.0 ng/mL, the risk of prostate cancer is determined on the basis of the PSA alone. Therefore the % Free PSA is recommended only for those subjects whose PSA levels are between 4.0 and 10.0 ng/mL.PSA methodology: Rivera Alinity i ChemiluminescentMicroparticle Immunoassay (CMIA) 05/03/2025 9:01 AM EDT 05/03/2025 9:01 AM EDT us Generic External Data Provider LAB BLOOD ORDERAB LES Final Result [facility] [address] [place] [address] [phone] * (ABNORMAL) POCT glycosylated hemoglobin (Hgb A1c) (01/31/2025 11:15 AM EDT) Hemoglobin A1C 7.5(A) 4.0 - 6.0 % QC Media Lot # [id number] Lot# Expiration Date Blood Capillary blood specimen / Unknown 01/31/2025 11:15 AM EDT us Bridgette Fagan MD POINT OF CARE TEST ENTER/EDIT OR DERABLES Final Result * Lipid Panel with Reflex to Direct LDL (10/28/2024 9:15 AM EDT) Triglycerides 125 <150 mg/dL [facility] Comment:Desirable Triglyceri de: less than 150 mg/dLBorderline High Triglyceride 150-199 mg/dLHigh Triglyceride: 200-499 mg/dLVery High Triglyceride: greater than or equal to 5OO mg/dL Cholesterol 126 <200 mg/dL [facility] Comment:Desirable Cholestero l: less than 200 mg/dLBorderline High Cholesterol: 200-239 mg/dLHigh Cholesterol: greater than 239 mg/dL LDL Cholesterol Calculated 58 <100 mg/dL [facility] Comment:Desirable LDL: less than 100 mg/dLNear Optimal/Above Optimal LDL: 110- 129 mg/dLBorderline High LDL: 130-159 mg/dLHigh LDL: 160-189 mg/dLVery High LDL: greater than or equal to 190 mg/dL HDL Cholesterol 43 >40 mg/dL [facility] Comment:Desirable HDL: great er than 40 mg/dL Note: This HDL assay may give artificially low results in patients with liver disease. Blood 10/28/2024 9:15 AM EDT 10/28/2024 11:15 AM EDT us Bridgette Fagan MD LAB BLOOD ORDERABLES Final Resul t [facility] [address] [place] [phone] * (ABNORMAL) Albumin, Random Urine W/Creatinine (10/28/2024 9:15 AM EDT) Creatinine, Urine 247.97 mg/dL [facility] Microalbumin Urine 145.0 mg/L [facility] Microalbum Creatinine Ratio Ur 58.4(H) <30 ug/mg cr [facility] Comment:Albumin/Creatinine R atio Reference Ranges: Normal: < 30 ug/mg creatinine Microalbuminuria: 30 - 300 ug/mg creatinineClinical Albuminuria: > 300 ug/mg creatinine Urine 10/28/2024 9:15 AM EDT 10/28/2024 11:14 AM EDT Bridgette Fagan MD LAB URINE ORDERABLES Final Resul t [facility] [address] [place] [phone] * Hm Diabetes Eye Exam (06/29/2024) Eye Exam Normal Normal 06/29/2024 us Historical Provider HEALTH MAINTENANCE Final Result * CT Lung Screening Low dose (12/22/2023 9:58 AM EDT) Anatomical Region Laterality Modality Lung Computed Tomogra phy 12/22/2023 9:58 AM EDT Narrative 12/27/2023 11:40 PM EDT [address] [address] [address] Scan Report Signed Patient: Bharathi Walsh R#: [id number] : 1945 Acct:[id number] Age/Sex: 78 / M ADM Date: 12/22/23 Loc: HO.CT Attending Dr: Tc Castillo MD Ordering Physician: Tc Castillo MD Date of Service: 12/22/23 Procedure(s): CT lung screening Accession Number(s): [id number] cc: Tc Castillo MD; Bridgette Fagan MD [...] for CT CHEST LOW DOSE CANCER SCREENING ([id number]) can be placed. Dictated By: Kun Enciso MD Signed By: <Electronically signed by Kun Enciso MD in OV> 12/27/23 2336 DD/ 0958 TD/TT: Medicaid Analyst: SS Procedure Note Donotuseinterpreter, Image - 12/27/[address] [address] [address] Scan Report Signed Patient: Shalom Walsh R#: [id number] : 6Acct:[id number] Age/Sex: 78 / MADM Date: 12/22/23 Loc: .CT Attending Dr: Tc Castillo MD Ordering Physician: Tc Castillo MD Date of Service: 12/22/23 Procedure(s): CT lung screening Accession Number(s): [id number] cc: Tc Castillo MD; Bridgette Fagan MD [...] for CT CHEST LOW DOSE CANCER SCREENING ([id number]) can be placed. Dictated By: Kun Enciso MD Signed By: <Electronically signed by Kun Enciso MD in OV> 12/27/23 2336 DD/ 0958 TD/TT: Medicaid Analyst: ANGELA [facility] External Provider IMG CT PROCEDURES Edited Result - Final from Last 3 Months or Most Recently Relevant to Health Maintenance Insurance [facility] DUAL COMPLETE DENTAL - [facility] * Guarantor: Bharathi Walsh Account Type Relation to Patient Date of Phone Billing Address Personal/Family Self [address] [place] [address] * Guarantor: Bharathi Walsh Account Type Relation to Patient Date of Phone Billing Address Personal/Family Self [address] [place] [address] Care Teams Cost Accounting Clerk Relationship Specialty Start Date End Date Bridgette Fagan MD [address] [place] [phone] PCP - General Family Medicine 07/01/12 Ramnó Bolaños, PharmD [address] [place] [phone] Pharmacist Internal Medicine 11/18/23
--- OUTSIDE RECORDS SUMMARY | 2025-05-16 07:00 | XMS_ITS ---
Author Name Nadira KNOWLES Qi Address [address] [place] [address] Phone [phone] [facility] Care Team Providers Care Recyclable Materials Distributor Name Role Phone Qi Waddell Unavailable [phone] Unavailable Unavailable Unavailable Unavailable Unavailable Unavailable Reason [...] 2022-03-10 No Data Available Deep Sea Nasal [place] 0.65 % Solution USE 1-2 SPRAYS IN [...] persistent NOLEN< blurry vision)07/25/2024:Follows up with PCP, Sisal Picker, last visit 2 weeks ago.Taking: amLODIPine Besylate [...] ophthalmology every 3-6 months 07/25/2024:Follows up with [employer] Operator.Continues using: Latanoprost drops.Denies any acute complaint. Chronic pain Active 2023-10-27 N/A Reports cylinder filler falguni bilateral hip pain. Takes Tylenol as [...] likely not be covered by health plan. [facility] cc info sent to member and TELETYPESETTER OPERATOR. Advised to f/u with recliner request during 07/27/24 f/u visit with PCP, as may need PT/OT eval. Encounters Encounters Type Facility Date of Service Diagnosis/Co mplaint New patient,40-59min; chronic exacerbation, 2 stable chronic or 1 acute illness add add modifier 95 for video (do not use for phone, instead use 13986-42) [facility] ([place]) 10/28/2022 Type 2 [...] (do not use for phone, instead use 94771-75) [facility], ([place]) 10/28/2022 New patient,40-59min; chronic exacerbation, 2 stable chronic or 1 acute illness add add modifier 95 for video (do not use for phone, instead use 50055-04) [facility] [place] New patient,40-59min; chronic exacerbation, 2 stable chronic or 1 acute illness add add modifier 95 for video (do not use for phone, instead use 14183-14) [facility] [place]/2022 New patient,40-59min; chronic exacerbation, 2 stable chronic or 1 acute illness add add modifier 95 for video (do not use for phone, instead use 79734-35) [facility] [place] 10[place]28/2022 New patient,40-59min; chronic exacerbation, 2 stable chronic or 1 acute illness add add modifier 95 for video (do not use for phone, instead use 22426-94) [facility] [place] 10[place]28/2022 New patient,40-59min; chronic exacerbation, 2 stable chronic or 1 acute illness add add modifier 95 for video (do not use for phone, instead use 91941-07) [facility] [place] 10[place]28/2022 New patient,40-59min; chronic exacerbation, 2 stable chronic or 1 acute illness add add modifier 95 for video (do not use for phone, instead use 71218-22) [facility] [place] 10[place]28/2022 New patient,40-59min; chronic exacerbation, 2 stable chronic or 1 acute illness add add modifier 95 for video (do not use for phone, instead use 48157-15) [facility] [place] 10/28/2022 No Data Available [facility] [place]29/2022 Type 2 diabetes mellitus wit h diabetic neuropathy, unspecifiedMorbid (severe) obesity due to excess caloriesMajor depressive disorder, recurrent, mildHeart failure, unspecifiedHypertensive heart disease with heart failureChronic obstructive pulmonary disease, unspecifiedOther amnesiaUnspecified glaucoma No Data Available [facility] [place] 10/29/2022 No Data Available [facility] [place] 10/29/2022 Estab. patient 30-39min; chronic exacerbation, 2 stable chronic or 1 acute illness add add modifier 95 for video, (do not use for phone, instead use 62140-15) [facility] ([place] 10/27/2023 Type 2 diabetes mellitus wit h [...] (do not use for phone, instead use 83667-30) [facility] [place] 10/27/2023 Estab. patient 30-39min; chronic exacerbation, 2 stable chronic or 1 acute illness add add modifier 95 for video, (do not use for phone, instead use 77722-69) [facility] [place] 10/27/2023 Estab. patient 30-39min; chronic exacerbation, 2 stable chronic or 1 acute illness add add modifier 95 for video, (do not use for phone, instead use 52755-08) [facility] [place] 10/27/2023 Estab. patient 30-39min; chronic exacerbation, 2 stable chronic or 1 acute illness add add modifier 95 for video, (do not use for phone, instead use 17796-99) [facility] [place] 10/27/2023 Estab. patient 30-39min; chronic exacerbation, 2 stable chronic or 1 acute illness add add modifier 95 for video, (do not use for phone, instead use 81773-92) [facility] ([place]) 10/27/2023 Estab. patient 30-39min; chronic exacerbation, 2 stable chronic or 1 acute illness add add modifier 95 for video, (do not use for phone, instead use 16693-62) [facility] [place] 10/27/2023 Estab. patient 30-39min; chronic exacerbation, 2 stable chronic or 1 acute illness add add modifier 95 for video, (do not use for phone, instead use 99043-58) [facility] [place] 10/27/2023 Estab. patient 30-39min; chronic exacerbation, 2 stable chronic or 1 acute illness add add modifier 95 for video, (do not use for phone, instead use 24505-45) [facility] [place] 10/27/2023 Estab. patient 30-39min; chronic exacerbation, 2 stable chronic or 1 acute illness add add modifier 95 for video, (do not use for phone, instead use 90096-00) [facility] [place] 10/27/2023 Estab. patient 20-29min; 1 stable chronic or 2 minor; add add modifier 95 for video, modifier 93 for phone [facility] [place] 05/30/2024 Other chronic painOther prob lems related to medical facilities and other health care Estab. patient 20-29min; 1 stable chronic or 2 minor; add add modifier 95 for video, modifier 93 for phone [facility] [place] 05/30/2024 Estab. patient 20-29min; 1 stable chronic or 2 minor; add add modifier 95 for video, modifier 93 for phone [facility] [place] 05/30/2024 Estab. patient 20-29min; 1 stable chronic or 2 minor; add add modifier 95 for video, modifier 93 for phone [facility] [place] 05/30/2024 Estab. patient 20-29min; 1 stable chronic or 2 minor; add add modifier 95 for video, modifier 93 for phone [facility] ([place] 05/30/2024 Estab. patient 20-29min; 1 stable chronic or 2 minor; add add modifier 95 for video, modifier 93 for phone [facility] [place] 05/30/2024 Estab. patient 20-29min; 1 stable chronic or 2 minor; add add modifier 95 for video, modifier 93 for phone [facility] [place] 05/30/2024 No Data Available [facility] [place] 07/25/2024 Hypertensive heart disease w ith heart failureHeart failure, unspecifiedSecondary hyperaldosteronismChronic obstructive pulmonary disease, unspecifiedUnspecified glaucomaOther problems related to medical facilities and other health careOther chronic pain No Data Available [facility] [place] 07/25/2024 No Data Available [facility] [place] 07/25/2024 Vital Signs Date of Collection Vitals [...] Current Smoking Status Current every day smoker 2025-05-16 Sex Male History of Procedures Procedures Service Procedure code Service date Servicing provider Phone# New patient,40-59min; chronic exacerbation, 2 stable chronic or 1 acute illness add add modifier 95 for video (do not use for phone, instead use 63581-27) 88448 2022-10-28 No Data Available No Data Availa [...] No Data Nancy ilable No Data Available [id number] 2022-10-29 No Data Available No Data Available [...] (do not use for phone, instead use 55945-55) 16710 2023-10-27 No Data Available No Data Availa [...] 95 for video, modifier 93 for phone 54521 2024-05-30 No Data Available No Data Availa [...] le No Data Available No Data Available 14623 2024-07-25 No Data Available No Data Available [...] persistent NOLEN< blurry vision)10/27/2023:Follows up with PCP, Sisal Picker, last visit 2 weeks ago.BP: 119/68. Reported [...] ophthalmology every 3-6 months 10/27/2023:Follows up with [employer] Operator.Continues using: Latanoprost drops.Denies any acute complaint.Reports [...] (no modifier 95)Pain Assessment - Pain Documented (3135F)Continue to see PCP. Follow-up with [facility] as needed for any acute or disease education needs that may arise 09/03.StableLisinopril, Furosemide Avg BP: 120s/60sContinue taking medications as prescribed, continue monitoring BP, discussed low salt diet, exercise as tolerable, and lifestyle interventions. Contact us if developing emergent HTN s/sx (eg. palpitations, persistent NOLEN< blurry vision)07/25/2024:Follows up with PCP, Sisal Picker, last visit 2 weeks ago.Taking: amLODIPine Besylate [...] at home.Follow low Sodium diet. Contact CB 09/03 as needed.Reports intermittent SOB with exertionAlbuterol, AdvairDenies [...] acute respiratory symptoms. Contact CB 09/03 as needed.StableLatanoprost ggtsContinue using medicated eye drops, monitor for acute changes or worsening vision, and continue f/u care and monitoring with PCP and ophthalmology every 3-6 months 07/25/2024:Follows up with [employer] Operator.Continues using: Latanoprost drops.Denies any acute complaint.PAIN [...] likely not be covered by health plan. [facility] cc info sent to member and TELETYPESETTER OPERATOR. Advised to f/u with recliner request [...] questions or concerns. Discussed how to contact [facility] via phone or tablet. 24/ phone number [...] 2024-07-25 PCP f/u 07/27/24 2024-07-25 Senait Girard -TELETYPESETTER OPERATOR
--- OUTSIDE RECORDS SUMMARY | 2025-05-16 07:00 | XMS_ITS | Encounter Summary ---
Author Organization [employer] Address [address] [facility] 7[address] [place] [address] Care Team Providers Care Nut Packer Name Role Phone Bridgette Gandhi MD Primary Care Provider Ramón Bolaños PharmD Unavailable Encounter Details Date Type Department Care Team (Late st Contact Info) Description 07/30/2022 Abstract [facility] [address] [place] [address] Lydia Mac [address] [place], [place] [phone] Social History Tobacco Use Types Packs/Day Years [...] Description 07/10/2025 1:30 PM EST Office Visit [facility] [address] [place] [address] Lydia Mac [address] [place] [address] documented as of this encounter Procedures Procedure [...] on filedocumented in this encounter Care Teams Nut Packer Relationship Specialty Start Date End Date Bridgette Gandhi MD [address] [place] [address] PCP - General Family Medicine 07/01/12 Ramón Bolaños PharmD [address] [place] [address] Pharmacist Internal Medicine 11/18/23 documented as of this encounter
--- OUTSIDE RECORDS SUMMARY | 2025-05-16 07:00 | XMS_ITS | Encounter Summary ---
Author Organization [employer] Address [address] [place] [address] Care Team Providers Care First Mate Name Role Phone Bridgette Gandhi MD Primary Care Provider [phone] Ramón Bolaños PharmD Unavailable [phone] Encounter Details Date Type Department Care Team (Late st Contact Info) Description 09/22/2023 Orders Only [facility] [address] [place], [place] [phone] Bridgette Gandhi MD [address] [place], [place] [phone] Chronic obstructive pulmonary disease, unspecified COPD type [...] Description 07/10/2025 1:30 PM EST Office Visit [facility] [address] [place] [address] Bubba, Lydia [address] [place] [address] documented as of this encounter Visit Diagnoses Diagnosis Chronic obstructive pulmonary disease, unspecified COPD type (CMS/HCC) (HCC)- Primary Obstructive sleep apnea syndrome Obstructive sleep apnea (adult) (pediatric) documented in this encounter Additional Health Concerns Assessment Noted Time PHQ-9 Depression Total Score: 5 09/11/19 23 10:25 AM EST documented as of this encounter Care Teams First Mate Relationship Specialty Start Date End Date Bridgette Gandhi MD [address] [place] [address] PCP - General Family Medicine 07/01/12 Ramón Bolaños, Bradley [address] [place] [address] Pharmacist Internal Medicine 11/18/23 documented as of this encounter
--- OUTSIDE RECORDS SUMMARY | 2025-05-16 07:00 | XMS_ITS | Encounter Summary ---
Author Organization [facility] Address [address] [facility] 7t [place] [address] Care Team Providers Care Snowmobile Mechanic Name Role Phone Bridgette Gandhi MD Primary Care Provider [phone] Ramón Bolaños PharmD Unavailable Encounter Details Date Type Department Care Team (Late st Contact Info) Description 07/31/2022 Abstract [facility] [address] [place] [address] Lydia Mac [address] [place] [address] Social History Tobacco Use Types Packs/Day Years [...] Description 07/10/2025 1:30 PM EST Office Visit [facility] [address] [place] [address] Lydia Mac [address] [place] [address] documented as of this encounter Visit Diagnoses Not on filedocumented in this encounter Care Teams Snowmobile Mechanic Relationship Specialty Start Date End Date Bridgette Gandhi MD [address] [place] [phone] PCP - General Family Medicine 07/01/12 Ramón Bolaños, MollyD [address] [place] [address] Pharmacist Internal Medicine 11/18/23 documented as of this encounter
--- OUTSIDE RECORDS SUMMARY | 2025-05-16 07:00 | XMS_ITS | Encounter Summary ---
Author Organization [employer] Address [address] [facility] 7t [place] [address] Care Team Providers Care Hook Tender Name Role Phone Bridgette Gandhi MD Primary Care Provider Ramón Bolaños PharmD Unavailable Encounter Details Date Type Department Care Team (Late st Contact Info) Description 04/30/2023 Abstract [facility] [address] [place] [address] Bridgette Gandhi MD [address] [place], [place] [phone] Social History Tobacco Use Types Packs/Day Years [...] Description 07/10/2025 1:30 PM EST Office Visit [facility] [address] [place] [address] Lydia Mac [address] [place] [address] documented as of this encounter Procedures Procedure [...] documented as of this encounter Care Teams Hook Tender Relationship Specialty Start Date End Date Bridgette Gandhi MD [address] [place] [address] PCP - General Family Medicine 07/01/12 Ramón Bolaños, MollyD [address] [place] [address] Pharmacist Internal Medicine 11/18/23 documented as of this encounter
--- OUTSIDE RECORDS SUMMARY | 2025-05-16 07:00 | XMS_ITS | Clinical Summary ---
Author Organization [facility] Address [address] [place], [place] [phone] Phone Care Team Providers Care Men'S Furnishings Salesperson Name Role Phone Unknown, Unknown Primary Care [...] file Medical Devices Not on file Insurance [facility] DUAL MEDICARE REPLACEMENT [place] [address] DUAL MEDICARE REPLACEMENT DUAL MEDICARE REPLACEMENT [facility] DUAL MEDICARE REPLACEMENT [place] [address] [address] [address] [place] [address] DUAL MEDICARE REPLACEMENT [facility] DUAL MEDICARE REPLACEMENT [facility] DUAL MEDICARE REPLACEMENT [facility] DUAL MEDICARE REPLACEMENT Care Teams Men'S Furnishings Salesperson Relationship Specialty Start Date End Date Unknown, Unknown, PCP - General 05/23/19 Additional Source Comments The information contained in this document represents components of the legal health record. It is not the complete legal health record.[facility]
--- OUTSIDE RECORDS SUMMARY | 2025-05-16 07:00 | XMS_ITS | Encounter Summary ---
Author Organization [employer] Address [address] [facility] 7t [place] [address] Care Team Providers Care Loan Funder Name Role Phone Bridgette Gandhi MD Primary Care Provider [phone] Ramón Bolaños PharmD Unavailable [phone] Reason for Visit * Reason Onset Date Comments Referral 08/27/2023 Encounter Details Date Type Department Care Team (Late st Contact Info) Description 08/27/2023 Telephone [facility] [address] [place], [place] [phone] Bridgette Gandhi MD [address] [place], [place] [phone] Referral Social History Tobacco Use Types Packs/Day [...] is your housing situation today? I have ebrtrandquinton bender 06/01/[address] you [...] for hip pain. * Telephone Encounter - Dvaid Vidal - 09/02/2023 9:24 AM EST Tc from patients daughter requesting the status in regards to message below appt is on 09/03/2023 for the knee and patient is going to receive Cortizone shots for pain needs a new referral * Telephone Encounter - Russell Dumas - 08/27/2023 1:13 PM EST TC from pt's daughter/SCADA TECHNICIAN requesting a renewal of Referral Date of original referral: 09/11/23 Location: [facility] (unsure of exact location) Date: 09/03/23 Time: 3:15 Fax: N/A Specialty: Orthopedic documented in this encounter Plan of Treatment Upcoming Encounters Date Type Department Care Team (Late st Contact Info) Description 07/10/2025 1:30 PM EST Office Visit [facility] [address] [place] [address] Lydia Mac [address] [place] [address] documented as of this encounter Visit Diagnoses Not on filedocumented in this encounter Additional Health Concerns Assessment Noted Time PHQ-9 Depression Total Score: 5 09/11/19 23 10:25 AM EST documented as of this encounter Care Teams Loan Funder Relationship Specialty Start Date End Date Bridgette Gandhi MD [address] [place], [place] [phone] PCP - General Family Medicine 07/01/12 Ramón Bolaños, MollyD [address] [place] [address] [phone] Pharmacist Internal Medicine 11/18/23 documented as of this encounter
--- OUTSIDE RECORDS SUMMARY | 2025-05-16 07:00 | XMS_ITS | Encounter Summary ---
Author Organization [employer] Address [address] [place] [address] 7t [place] [address] Care Team Providers Care Stitchdown Thread Laster Name Role Phone Bridgette Gandhi MD Primary Care Provider [phone] Ramón Bolaños PharmD Unavailable [phone] Reason for Referral * Consultation (Routine) - Authorized Specialty Diagnoses / Procedures Referred By Contac t Referred To Contact Cardiology Diagnoses Hypertension, unspecified type Venous insufficiency Ascending aorta dilation (CMS/HCC) Bridgette Gandhi MD [address] [place] [address] Phone: tel: fax: [facility] Referral ID Status Reason Start Date Expiration Date Visits Requested Visits Authorized [id number] Authorized Specialty Services Required 04/06/2025 04/06/2026 1 1 Encounter Details Date Type Department Care Team (Late st Contact Info) Description 04/06/2025 Orders Only [facility] [address] [place], [place] [phone] Bridgette Gandhi MD [address] [place], [place] [phone] Hypertension, unspecified type (Primary Dx); Venous insufficiency; [...] Description 07/10/2025 1:30 PM EST Office Visit [facility]ULT [facility] [address] [place] [address] Lydia Mac [address] [place] [address] Scheduled Referrals Name Type Priority Associated Diagnoses [...] (CMS/HCC) Thoracic aneurysm without mention of rupture documented in this encounter Additional Health Concerns Assessment Noted Time PHQ-9 Depression Total Score: 0 04/07/20 11:45 AM EDT documented as of this encounter Care Teams Stitchdown Thread Laster Relationship Specialty Start Date End Date Bridgette Gandhi MD [address] [place] [address] PCP - General Family Medicine 07/01/12 Ramón Bolaños PharmD [address] [place] [address] Pharmacist Internal Medicine 11/18/23 documented as of this encounter
--- OUTSIDE RECORDS SUMMARY | 2025-05-16 07:00 | XMS_ITS | Encounter Summary ---
Author Organization [facility] Address [address] [facility] 7t [place] [address] Care Team Providers Care Crystalizer Name Role Phone Bridgette Gandhi MD Primary Care Provider [phone] Ramón Bolaños PharmD Unavailable [phone] Encounter Details Date Type Department Care Team (Latest Contact Info) Description 06/20/2022 Abstract [facility] CONVERSIONS Dental, Provider, DDS Social History [...] Description 07/10/2025 1:30 PM EST Office Visit [facility] ADULT DENTAL [address] [place] [address] Bubba, Lydia [address] [place] [address] documented as of this encounter Visit Diagnoses Not on filedocumented in this encounter Care Teams Crystalizer Relationship Specialty Start Date End Date Bridgette Gandhi MD [address] [place], [place] [phone] PCP - General Family Medicine 07/01/12 Ramón Bolaños, PharmD [address] [place] [address] Pharmacist Internal Medicine 11/18/23 documented as of this encounter
--- OUTSIDE RECORDS SUMMARY | 2025-05-16 07:00 | XMS_ITS | Clinical Summary ---
Author Organization [facility] Address [address] [place] [address] [address] BYRD MAGDALENA REINA [address] Phone Care Team Providers Care Police Magistrate Name Role Phone Bridgette Gandhi MD Primary Care Provider [phone] Allergies Active Allergy Reactions Criticality Noted Date [...] Visit [facility] [address] [place] [address] Gómez Colunga MD [address] [facility] [address] [place] [address] Health Maintenance Due Date Last [...] patient's age to complete this topic Insurance [facility] ([id number]) [facility] ([id number]) Care Teams Police Magistrate Relationship Specialty Start Date End Date Bridgette Gandhi MD [address] [place] [address] PCP - General 08/27/20
--- OUTSIDE RECORDS SUMMARY | 2025-05-16 07:00 | XMS_ITS | Encounter Summary ---
Author Organization [employer] Address [address] [facility] 7t [place] [address] Care Team Providers Care Pressure Steamer Tender Name Role Phone Bridgette Gandhi MD Primary Care Provider [phone] Ramón Bolaños PharmD Unavailable [phone] Reason for Visit * Reason Onset Date Comments ER Follow-up 05/26/2024 Nurse Triage 05/26/2024 Encounter Details Date Type Department Care Team (Late st Contact Info) Description 05/26/2024 Telephone [facility] MEDICINE [address] [place], [place] [phone] Bridgette Gandhi MD [address] [place], [place] [phone] ER Follow-up; Nurse Triage Social History Tobacco [...] Please assist with obtaining discharge summary for [facility] [place] on 05/25/24 for provider review prior to upcoming appointment. Future Appointments Date Time Provider Department Center 05/27/2024 8:45 AM Jeremias Gong MD [facility] 01/11/2025 10:[address] [facility] * Telephone Encounter - Danii Hope [...] Center 05/27/2024 8:45 AM Jeremias Gong MD [facility] 01/11/2025 10:00 AM Susy Dixon PharmD MEDICINE [facility] Insurance verified as active per Real Time Eligibility in Epic. Video visit offered and caller accepted Positive Triage Question: * Patient wants to be seen * All higher-acuity triage questions were negative Care Advice Discussed: * Continue Treatment * Reasons To Call Back - You become worse * Telephone Encounter - Russell Dumas - 05/26/2024 2:13 PM EDT Patient calling to report ED visit on : Date: 05/25/24 Hospital: [facility] Seen for: Severe hip and thigh pain - Symptoms: Leg Pain - Not From Injury, Hip Pain - Not From Injury Outcome: Talk to a nurse or provider within 15 minutes Reason: Can't walk (unless normally can't walk) documented in this encounter Plan of Treatment Upcoming Encounters Date Type Department Care Team (Late st Contact Info) Description 07/10/2025 1:30 PM EST Office Visit [facility] ADULT DENTAL [address] [place] [address] Lydia Mac [address] [place] [address] documented as of this encounter Goals Goal Patient Goal Type Associated Problems Recent Progress Patient-Stated? Author Blood Pressure < 140/90 Blood Pressure 136/72(2024 11:04 AM EDT) No Ramón Bolaños, Bradley Hemoglobin A1c < 7 Result Component 7.5(06/17/202 5 11:15 AM EDT) No Ramón Bolaños, MollyD documented as of this encounter Visit Diagnoses Not on filedocumented in this encounter Additional Health Concerns Assessment Noted Time PHQ-9 Depression Total Score: 0 04/07/20 11:45 AM EDT documented as of this encounter Care Teams Pressure Steamer Tender Relationship Specialty Start Date End Date Bridgette Gandhi MD [address] [place] [address] PCP - General Family Medicine 07/01/12 Ramón Bolaños, PharmD [address] [place] [address] Pharmacist Internal Medicine 11/18/23 documented as of this encounter
--- OUTSIDE RECORDS SUMMARY | 2025-05-16 07:00 | XMS_ITS | Encounter Summary ---
Author Organization [employer] Address [address] [facility] [address] 7t [place] [address] Care Team Providers Care Gastroenterology Nurse Name Role Phone Bridgette Gandhi MD Primary Care Provider [phone] Ramón Bolaños PharmD Unavailable [phone] Encounter Details Date Type Department Care Team (Late st Contact Info) Description 02/17/2025 Orders Only [facility] MEDICINE [address] [place], [place] [phone] Bridgette Gandhi MD [address] [place], [place] [phone] Osteoporosis screening (Primary Dx) Social History Tobacco [...] Description 07/10/2025 1:30 PM EST Office Visit [facility] ADULT DENTAL [address] [place] [address] Bubba, Lydia [address] [place] [address] documented as of this encounter Goals Goal Patient Goal Type Associated Problems Recent Progress Patient-Stated? Author Blood Pressure < 140/90 Blood Pressure 136/72(2024 11:04 AM EDT) No Ramón Bolaños, PharmD Hemoglobin A1c < 7 Result Component 7.5( 11:15 AM EDT) No Ramón Bolaños PharmD documented as of this encounter Visit Diagnoses Diagnosis Osteoporosis screening- Primary Special screening for osteoporosis documented in this encounter Additional Health Concerns Assessment Noted Time PHQ-9 Depression Total Score: 0 04/07/20 11:45 AM EDT documented as of this encounter Care Teams Gastroenterology Nurse Relationship Specialty Start Date End Date Bridgette aGndhi MD [address] [place] [address] PCP - General Family Medicine 07/01/12 Ramón Bolaños, MollyD [address] [place] [address] Pharmacist Internal Medicine 11/18/23 documented as of this encounter
--- OUTSIDE RECORDS SUMMARY | 2025-05-16 07:00 | XMS_ITS | Encounter Summary ---
Author Organization [employer] Address [address] [facility] 7t [place] [address] Care Team Providers Care Copping Machine Operator Name Role Phone Bridgette Gandhi MD Primary Care Provider Ramón Bolaños PharmD Unavailable [phone] Reason for Visit * Reason Onset Date Comments Medication Question 06/24/2024 Encounter Details Date Type Department Care Team (Late st Contact Info) Description 06/24/2024 Telephone [facility] MEDICINE [address] [place], [place] [phone] Bridgette Gandhi MD [address] [place], [place] [phone] Medication Question Social History Tobacco Use Types [...] broke. If any questions contact pt at [phone] documented in this encounter Plan of Treatment Upcoming Encounters Date Type Department Care Team (Late st Contact Info) Description 07/10/2025 1:30 PM EST Office Visit [facility] ADULT DENTAL [address] [place] [address] Bubba, Lydia [address] [place] [address] documented as of this encounter Goals Goal [...] documented as of this encounter Care Teams Copping Machine Operator Relationship Specialty Start Date End Date Bridgette Gandhi MD [address] [place] [address] PCP - General Family Medicine 07/01/12 Ramón Bolaños, Bradley [address] [place] [address] Pharmacist Internal Medicine 11/18/23 documented as of this encounter
--- OUTSIDE RECORDS SUMMARY | 2025-05-16 07:00 | XMS_ITS | Encounter Summary ---
Author Organization [employer] Address [address] [facility] 7t [place] [address] Care Team Providers Care Driver/Merchandiser Name Role Phone Bridgette Gandhi MD Primary Care Provider Ramón Bolaños PharmD Unavailable Reason for Visit * Reason Comments Med Refill Encounter Details Date Type Department Care Team (Late st Contact Info) Description 10/22/2022 Refill [facility] MEDICINE [address] [place], [place] [phone] Tamela Drake MD [address] [place], [place] [phone] Dyslipidemia (Primary Dx) Social History Tobacco Use [...] Description 07/10/2025 1:30 PM EST Office Visit [facility] ADULT DENTAL [address] [place] [address] Lydia Mac [address] [place], [place] [phone] documented as of this encounter Visit Diagnoses Diagnosis Dyslipidemia- Primary Other and unspecified hyperlipidemia documented in this encounter Additional Health Concerns Assessment Noted Time PHQ-9 Depression Total Score: 5 09/11/19 23 10:25 AM EST documented as of this encounter Care Teams Driver/Merchandiser Relationship Specialty Start Date End Date Bridgette Gandhi MD [address] [place] [address] PCP - General Family Medicine 07/01/12 Ramón Bolaños, MollyD [address] [place] [address] Pharmacist Internal Medicine 11/18/23 documented as of this encounter
--- OUTSIDE RECORDS SUMMARY | 2025-05-16 07:00 | XMS_ITS | Encounter Summary ---
Author Organization [employer] Address [address] [facility] [address] 7t [place] [address] Care Team Providers Care Tax Clerk Name Role Phone Bridgette Gandhi MD Primary Care Provider [phone] Ramón Bolaños PharmD Unavailable [phone] Encounter Details Date Type Department Care Team (Late st Contact Info) Description 08/28/2023 Orders Only [facility] MEDICINE [address] [place], [place] [phone] Bridgette Gandhi MD 230 [place], [place] [phone] Social History Tobacco Use Types Packs/Day Years Used Date Smoking Tobacco: Every Day Cigarettes 0.5 63 Passive Smoke Exposure: Current Smokeless Tobacco: Never Alcohol Use Standard Drinks/Week Comments Not Currently 0 (1 standard drink = 0.6 oz pur e alcohol) Depression Answer Date Recorded Patient Health Questionnaire-9 Score 5 09/11/2022 Housing Stability Answer Date Recorded What is your housing situation today? I have bertrandquinton bender 06/01/[address] you [...] 07/10/2025 1:30 PM EST Office Visit [facility] ADULT DENTAL [address] [place] [address] Lydia Mac [address] [place] [address] documented as of this encounter Visit Diagnoses Not on filedocumented in this encounter Additional Health Concerns Assessment Noted Time PHQ-9 Depression Total Score: 5 09/11/19 23 10:25 AM EST documented as of this encounter Care Teams Tax Clerk Relationship Specialty Start Date End Date Bridgette Gandhi MD [address] [place] [address] PCP - General Family Medicine 07/01/12 Ramón Bolaños, Bradley [address] [place] [address] Pharmacist Internal Medicine 11/18/23 documented as of this encounter
--- OUTSIDE RECORDS SUMMARY | 2025-05-16 07:00 | XMS_ITS | Encounter Summary ---
Author Organization [employer] Address [address] [facility] 7t [place] [address] Care Team Providers Care Tenderizer Tender Name Role Phone Bridgette Gandhi MD Primary Care Provider [phone] Ramón Bolaños PharmD Unavailable [phone] Reason for Visit * Reason Comments Med Refill Encounter Details Date Type Department Care Team (Late st Contact Info) Description 03/10/2024 Refill [facility] MEDICINE [address] [place], [place] [phone] Bridgette Gandhi MD 230 [place], [place] [phone] Social History Tobacco Use Types Packs/Day Years [...] Description 07/10/2025 1:30 PM EST Office Visit [facility] ADULT DENTAL [address] [place] [address] Greg Macaris 230 [place] [address] documented as of this encounter Goals Goal [...] documented as of this encounter Care Teams Tenderizer Tender Relationship Specialty Start Date End Date Bridgette Gandhi MD 230 [place] [address] PCP - General Family Medicine 07/01/12 Ramón Bolaños, MollyD [address] [place] [address] Pharmacist Internal Medicine 11/18/23 documented as of this encounter
--- OUTSIDE RECORDS SUMMARY | 2025-05-16 07:00 | XMS_ITS | Encounter Summary ---
Author Organization [facility] Address [address] [facility] [address] [place] [address] Phone Care Team Providers Care Supervisor Prop Making Name Role Phone Unknown, Unknown Primary Care Provider Terrence montano Encounter Details Date Type Department Care Team (Late st Contact Info) Description 05/30/2019 Ancillary Orders [facility] [address] [place] [address] [place] [address] Sylvester Hdez, DO [address] [place] [address] Bradycardia Social History Tobacco Use Types Packs/Day [...] dysrhythmias documented in this encounter Care Teams Supervisor Prop Making Relationship Specialty Start Date End Date Unknown, Unknown, PCP - General 05/23/19 documented as of this encounter Additional Source Comments The information contained in this document represents components of the legal health record. It is not the complete legal health record.[facility]
--- OUTSIDE RECORDS SUMMARY | 2025-05-16 07:00 | XMS_ITS | Encounter Summary ---
Author Organization [employer] Address [address] [facility] [address] 7t [place] [address] Care Team Providers Care Window Display Designer Name Role Phone Bridgette Gandhi MD Primary Care Provider [phone] Ramón Bolaños PharmD Unavailable [phone] Encounter Details Date Type Department Care Team (Late st Contact Info) Description 06/26/2023 Abstract [facility] ADULT DENTAL [address] [place], [place] [phone] Amarjit Foster DDS [address] [place], [place] [phone] Social History Tobacco Use Types Packs/Day Years [...] enough money to get more: Never True 10/ Transportation Answer Date Recorded In the past [...] Description 07/10/2025 1:30 PM EST Office Visit [facility] ADULT DENTAL [address] [place] [address] Lydia Mac [address] [place] [address] documented as of this encounter Visit Diagnoses Not on filedocumented in this encounter Additional Health Concerns Assessment Noted Time PHQ-9 Depression Total Score: 5 09/11/19 23 10:25 AM EST documented as of this encounter Care Teams Window Display Designer Relationship Specialty Start Date End Date Bridgette Gandhi MD [address] [place] [address] PCP - General Family Medicine 07/01/12 Ramón Bolaños, MollyD [address] [place] [address] Pharmacist Internal Medicine 11/18/23 documented as of this encounter
--- OUTSIDE RECORDS SUMMARY | 2025-05-16 07:00 | XMS_ITS | Encounter Summary ---
Demographics Address [address] [facility] [address] [place] [address] Mobile Phone Home Phone Work Phone Preferred Language es Marital Status Anabaptism Affiliation Unknown Race Other Race Ethnic Group Unknown Author Organization [employer] Address [address] [facility] 7t [place] [address] Care Team Providers Care Building Rental Manager Name Role Phone Bridgette Gandhi MD Primary Care Provider [phone] Ramón Bolaños PharmD Unavailable [phone] Reason for Referral * Consultation (Routine) - Closed Specialty Diagnoses / Procedures Referred By Jj t Referred To Contact Orthopaedic Surgery Diagnoses Primary osteoarthritis of both hips Primary osteoarthritis of both knees Bridgette Gandhi MD [address] [place] [address] Phone: tel: fax: [facility] [address] [place] [address] Drive [address] [place], [place] Phone: tel: fax: Referral ID Status Reason Start Date Expiration Date V isits Requested Visits Authorized [id number] Closed Specialty Services Required 02/23/2024 02/22/2025 1 1 Encounter Details Date Type Department Care Team (Late st Contact Info) Description 02/23/2024 Orders Only [facility] MEDICINE 230 [place] [address] Bridgette Gandhi MD [address] [place], [place] [phone] Primary osteoarthritis of both hips (Primary Dx); [...] Description 07/10/2025 1:30 PM EST Office Visit [facility] ADULT DENTAL 230 [place] [address] Lydia Mac 230 [place] [address] Scheduled Referrals Name Type Priority Associated Diagnoses [...] documented as of this encounter Care Teams Building Rental Manager Relationship Specialty Start Date End Date Bridgette Gandhi MD 230 [place] [address] PCP - General Family Medicine 07/01/12 Ramón Bolaños PharmD 230 [place] [address] Pharmacist Internal Medicine 11/18/23 documented as of this encounter
--- OUTSIDE RECORDS SUMMARY | 2025-05-16 07:00 | XMS_ITS | Encounter Summary ---
Author Organization [employer] Address [address] [facility] [address] 7t [place] [address] Care Team Providers Care Assault Amphibious Vehicle Crewman Name Role Phone Bridgette Gandhi MD Primary Care Provider [phone] Ramón Bolaños PharmD Unavailable [phone] Encounter Details Date Type Department Care Team (Late st Contact Info) Description 09/04/2023 Orders Only [facility] MEDICINE [address] [place], [place] [phone] Bridgette Gandhi MD 230 [place], [place] [phone] Chronic pain of both knees (Primary Dx) [...] your housing situation today? I have bertrand yulia 06/01/[address] you li [...] 1:30 PM EST Office Visit [facility] ADULT DENTAL [address] [place] [address] Bubba, Lydia [address] [place] [address] documented as of this encounter Visit Diagnoses Diagnosis Chronic pain of both knees- Primary documented in this encounter Additional Health Concerns Assessment Noted Time PHQ-9 Depression Total Score: 5 09/11/19 23 10:25 AM EST documented as of this encounter Care Teams Assault Amphibious Vehicle Crewman Relationship Specialty Start Date End Date Bridgette Gandhi MD 230 [place] [address] PCP - General Family Medicine 07/01/12 Ramón Bolaños, Bradley [address] [place] [address] Pharmacist Internal Medicine 11/18/23 documented as of this encounter
--- OUTSIDE RECORDS SUMMARY | 2025-05-16 07:00 | XMS_ITS | Encounter Summary ---
Author Organization [employer] Address [address] [facility] 7t [place] [address] Care Team Providers Care Hearing Dog Trainer Name Role Phone Bridgette Gandhi MD Primary Care Provider [phone] Ramón Bolaños PharmD Unavailable [phone] Encounter Details Date Type Department Care Team (Late st Contact Info) Description 06/24/2024 Orders Only [facility] MEDICINE 230 [place], [place] [phone] Bridgette Gadnhi MD [address] [place], [place] [phone] Social History Tobacco Use Types Packs/Day Years [...] Description 07/10/2025 1:30 PM EST Office Visit [facility] ADULT DENTAL [address] [place] [address] Bubba, Lydia [address] [place] [address] documented as of this encounter Goals Goal [...] documented as of this encounter Care Teams Hearing Dog Trainer Relationship Specialty Start Date End Date Bridgette Gandhi MD [address] [place] [address] PCP - General Family Medicine 07/01/12 Ramón Bolaños, PharmD [address] [place] [address] Pharmacist Internal Medicine 11/18/23 documented as of this encounter
--- OUTSIDE RECORDS SUMMARY | 2025-05-16 07:00 | XMS_ITS | Encounter Summary ---
Author Organization [employer] Address [address] [facility] [address] 7t [place] [address] Care Team Providers Care Rock Climbing Team Member Name Role Phone Bridgette Gandhi MD Primary Care Provider [phone] Ramón Bolaños PharmD Unavailable [phone] Encounter Details Date Type Department Care Team (Late st Contact Info) Description 10/09/2022 Orders Only [facility] MEDICINE [address] [place], [place] [phone] Bridgette Gandhi MD 230 [place], [place] [phone] Spinal stenosis of lumbar region with neurogenic [...] Description 07/10/2025 1:30 PM EST Office Visit [facility] ADULT DENTAL [address] [place] [address] Lydia Mac [address] [place] [address] documented as of this encounter Visit Diagnoses Diagnosis Spinal stenosis of lumbar region with neurogenic claudication- Primary documented in this encounter Additional Health Concerns Assessment Noted Time PHQ-9 Depression Total Score: 5 09/11/19 23 10:25 AM EST documented as of this encounter Care Teams Rock Climbing Team Member Relationship Specialty Start Date End Date Bridgette Gandhi MD [address] [place] [address] PCP - General Family Medicine 07/01/12 Ramón Bolaños, PharmD [address] [place] [address] Pharmacist Internal Medicine 11/18/23 documented as of this encounter
--- OUTSIDE RECORDS SUMMARY | 2025-05-16 07:00 | XMS_ITS | Encounter Summary ---
Author Organization [employer] Address [address] [facility] [address] [place] [address] Care Team Providers Care Glycerine Plant Operator Name Role Phone Bridgette Gandhi MD Primary Care Provider [phone] Ramón Bolaños PharmD Unavailable [phone] Reason for Visit * Reason Comments Med Refill Encounter Details Date Type Department Care Team (Late st Contact Info) Description 06/07/2023 Refill [facility] 230 [place], [place] [phone] Bridgette Gandhi MD 230 [place], [place] [phone] Social History Tobacco Use Types Packs/Day Years [...] Description 07/10/2025 1:30 PM EST Office Visit [facility] ADULT DENTAL 230 [place] [address] Bubba, Lydia [address] [place] [address] documented as of this encounter Visit Diagnoses Not on filedocumented in this encounter Additional Health Concerns Assessment Noted Time PHQ-9 Depression Total Score: 5 09/11/19 23 10:25 AM EST documented as of this encounter Care Teams Glycerine Plant Operator Relationship Specialty Start Date End Date Bridgette Gandhi MD [address] [place] [address] PCP - General Family Medicine 07/01/12 Ramón Bolaños, Bradley [address] [place] [address] Pharmacist Internal Medicine 11/18/23 documented as of this encounter
--- OUTSIDE RECORDS SUMMARY | 2025-05-16 07:00 | XMS_ITS | Encounter Summary ---
Author Organization [employer] Address [address] [facility] [address] 7t [place] [address] Care Team Providers Care Marketing Consultant Name Role Phone Bridgette Gandhi MD Primary Care Provider [phone] Ramón Bolaños PharmD Unavailable [phone] Encounter Details Date Type Department Care Team (Late st Contact Info) Description 08/22/2024 Abstract [facility] MEDICINE [address] [place] [address] [place] Social History Tobacco Use [...] Description 07/10/2025 1:30 PM EST Office Visit [facility] ADULT DENTAL [address] [place] [address] Bubba, Lydia [address] [place] [address] documented as of this encounter Goals Goal [...] documented as of this encounter Care Teams Marketing Consultant Relationship Specialty Start Date End Date Bridgette Gandhi MD [address] [place] [address] PCP - General Family Medicine 07/01/12 Ramón Bolaños, Bradley [address] [place] [address] Pharmacist Internal Medicine 11/18/23 documented as of this encounter
--- OUTSIDE RECORDS SUMMARY | 2025-05-16 07:00 | XMS_ITS | Encounter Summary ---
Author Organization [employer] Address [address] [facility] 7t [place] [address] Care Team Providers Care Electrical Installation Supervisor Name Role Phone Bridgette Gandhi MD Primary Care Provider [phone] Ramón Bolaños PharmD Unavailable [phone] Reason for Visit * Reason Onset Date Comments Referral 04/06/2025 Encounter Details Date Type Department Care Team (Late st Contact Info) Description 04/06/2025 Telephone [facility] MEDICINE [address] [place], [place] [phone] Bridgette Gandhi MD 230 [place], [place] [phone] Referral Social History Tobacco Use Types Packs/Day [...] a referral for a cardiology place in [place]. Contact pt at Daughter at [phone] Need paraprofessional interpreter documented in this encounter Plan of Treatment Upcoming Encounters Date Type Department Care Team (Late st Contact Info) Description 07/10/2025 1:30 PM EST Office Visit [facility] ADULT DENTAL [address] [place], [place] [phone] Greg Macaris 230 [place] [address] documented as of this encounter Goals Goal [...] documented as of this encounter Care Teams Electrical Installation Supervisor Relationship Specialty Start Date End Date Bridgette Gandhi MD 230 [place] [address] PCP - General Family Medicine 07/01/12 Ramón Bolaños PharmD [address] [place] [address] Pharmacist Internal Medicine 11/18/23 documented as of this encounter
--- NOTE | 2025-05-16 07:17 | A.OFFVIS_ITS ---
Vital Signs 05/16/25 07:18 Weight 240 lb BP 162/78 H Blood Pressure Location Lt brachial Position Sitting Respiration 18 Pulse 58 Pulse Source Pulse Oximeter Pulse Oximetry (%) 97 Oxygen Delivery Method Room Air Intake Visit Reasons: Left Hip Intraarticular Injection Client Service Coordinator Required: Yes Client Service Coordinator Services: Client Service Coordinator Present Client Service Coordinator Name: family Allergies Penicillins Allergy (Intermediate, Verified 03/29/25 10:45) RASH Carbapenems Allergy (Unknown, Verified 03/29/25 10:45) Unknown Cephalosporins Allergy (Unknown, Verified 03/29/25 10:45) Unknown enviormental Allergy (Severe, Uncoded 09/26/24 13:07) coughing and sneezing PFSH Medical History 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 Father No problems noted. Brother CAD (coronary artery disease) Sister Alzheimer disease Social History Household Members: Other Household Members Other:: 2 roomates Housing: Apartment Are you a primary care transition mgr to a significant other at home: No Do you presently have visiting nurse or other home services: Yes Alcohol intake: never Patient Tobacco Use Status: Former Tobacco user Cigarette Packs Per Day: 0.5 Cigarettes Per Day: 10.0 Years Smoked: 60 +/- , quit- Oct 12 2023 Physical Exam Vital Signs: Last Vital Signs Pulse 58 05/16/25 07:18 Resp 18 05/16/25 07:18 BP 162/78 H 05/16/25 07:18 Pulse Ox 97 05/16/25 07:18 Oxygen Delivery Method Room Air 05/16/25 07:18 Assessment & Plan Assessment & Plan (1) Chronic left hip pain: Code(s): M25.552 - Pain in left hip; G89.29 - Other chronic pain Category: Medical (2) Osteoarthritis of left hip: Code(s): M16.12 - Unilateral primary osteoarthritis, left hip Category: Medical Plan Left intra-articular hip steroid injection. Patient came to the operating room after informed consent was thoroughly explained to the patient. He was positioned on the right lateral decubitus position on the operating table with the nondependent left hip area exposed. Time-out was performed delineating name and date of of the patient, nature of the procedure side and site of the procedure. The patient's nondependent left hip was prepped with ChloraPrep and draped with sterile self adhesive utility towels. C-arm was brought over the operating field and picture of the left hip joint was demonstrated on the screen. In the projection of the left trochanter 5 mm above the most superior point of left trochanter projection to the skin injection of the local anesthetic mixture of lidocaine 2% and ropivacaine 0.5% was performed forming a skin wheal. After that 22 gauge 5 in needle was inserted through the skin wheal and advanced in the direction of the joint under anterior posterior and lateral views intermittently. When the tip of the needle entered the silhouette of the joint injection of the contrast was performed demonstrating arthrogram. After that 4 cc of ropivacaine 0.5% mixed with Kenalog 40 mg was performed into the joint. The needle was removed sterile Band-Aid was applied. Patient tolerated procedure well. Orders: Orders FL guidance in treatment room Today M25.552 - Pain in left hip Coding Level of Care Code Procedure Only Diagnoses Chronic left hip pain M25.552; G89.29 Osteoarthritis of left hip M16.12
[2025-05-16 07:18] VITALS: BP 162/78; PULSE 58; RESP 18; O2SAT 97
== END 2025-05-16 07:44 | disposition home or self-care (01) ==
LOC: HO.PMCPRC 06:57
PROVIDERS: PCP Family Medicine; Visit Provider Anesthesiology
DX: M25.552 Pain in left hip (principal); G89.29 Other chronic pain; M16.12 Unilateral primary osteoarthritis, left hip
CPT/HCPCS: 20610; 77002

== ENCOUNTER 2025-05-16 07:33 | Outpatient (REF) | payer OTHER, SELFPAY ==
--- NOTE | ~2025-05-16 | FL_ITS ---
EXAMINATION: FL GUIDANCE ONLY HISTORY: M25.552 - Pain in left hip COMPARISON: Correlation is made with plain films of the pelvis dated 05/25/2024 TECHNIQUE: Fluoroscopy time: 0.1 minute. Cumulative Dose: 11.6 mGy. DAP: 0.203 mGym2 Images: 1. FINDINGS: A fluoroscopic spot film of the left hip demonstrates a needle in place and contrast in the joint space. FL/FL guidance in treatment room IMPRESSION: Fluoroscopy during procedure. Please see procedure report for additional information. Electronically signed by: Rich Guevara MD 05/16/2025 08:01 AM EDT
== END 2025-05-16 07:34 | disposition home or self-care (01) ==
LOC: CF 07:33
PROVIDERS: Visit Provider Anesthesiology
DX: M16.12 Unilateral primary osteoarthritis, left hip (principal); M25.552 Pain in left hip; G89.29 Other chronic pain
CPT/HCPCS: 20610; J2003; J2795; J3301; Q9967

== ENCOUNTER 2025-05-19 13:55 | Outpatient (AMB) | payer OTHER, SELFPAY ==
--- OUTSIDE RECORDS SUMMARY | 2025-05-19 14:04 | XMS_ITS | Clinical Summary ---
Author Organization [facility] Address [address] [place] [address] DR BYRD MAGDALENA REINA [address] Phone Care Team Providers Care Frame Runner Name Role Phone Bridgette Gandhi MD Primary Care Provider [phone] Allergies Active Allergy Reactions Criticality Noted Date [...] Visit [facility] [address] [place] [address] Gómez Colunga MD [address] [facility] [address] [place] [address] Health Maintenance Due Date Last [...] patient's age to complete this topic Insurance [facility] ([id number]) [facility] ([id number]) Care Teams Frame Runner Relationship Specialty Start Date End Date Bridgette Gandhi MD [address] [place] [address] PCP - General 08/27/20
--- OUTSIDE RECORDS SUMMARY | 2025-05-19 14:04 | XMS_ITS | Clinical Summary ---
Author Organization Located [facility] Address [address] [place], [place] [phone] Phone Care Team Providers Care Woodworking Machine Feeder Name Role Phone Unknown, Unknown Primary Care [...] file Medical Devices Not on file Insurance [facility] DUAL MEDICARE [place] [address] [place] [address] DUAL MEDICARE REPLACEMENT DUAL MEDICARE REPLACEMENT [facility] DUAL MEDICARE [place] [address] [place] [address] [address] [place] [address] [place] [address] DUAL MEDICARE REPLACEMENT [facility] DUAL MEDICARE REPLACEMENT [facility] DUAL MEDICARE REPLACEMENT [facility] DUAL MEDICARE REPLACEMENT Care Teams Woodworking Machine Feeder Relationship Specialty Start Date End Date Unknown, Unknown, PCP - General 05/23/19 Additional Source Comments The information contained in this document represents components of the legal health record. It is not the complete legal health record.[facility]
--- OUTSIDE RECORDS SUMMARY | 2025-05-19 14:04 | XMS_ITS | Encounter Summary ---
Author Organization [employer] Address [address] [facility] 7t [place] [address] Care Team Providers Care Computer Engineering Technician Name Role Phone Bridgette Gandhi MD Primary Care Provider Ramón Bolaños PharmD Unavailable Reason for Visit * Reason Comments Med Refill Encounter Details Date Type Department Care Team (Late st Contact Info) Description 10/22/2022 Refill [facility] MEDICINE 230 [place], [place] [phone] Tamela Drake MD [address] [place], [place] [phone] Dyslipidemia (Primary Dx) Social History Tobacco Use [...] Description 07/10/2025 1:30 PM EST Office Visit [facility] ADULT DENTAL [address] [place] [address] Lydia Mac [address] [place], [place] [phone] documented as of this encounter Visit Diagnoses Diagnosis Dyslipidemia- Primary Other and unspecified hyperlipidemia documented in this encounter Additional Health Concerns Assessment Noted Time PHQ-9 Depression Total Score: 5 09/11/19 23 10:25 AM EST documented as of this encounter Care Teams Computer Engineering Technician Relationship Specialty Start Date End Date Bridgette Gandhi MD 230 [place] [address] PCP - General Family Medicine 07/01/12 Ramón Bolaños, MollyD 230 [place] [address] Pharmacist Internal Medicine 11/18/23 documented as of this encounter
--- OUTSIDE RECORDS SUMMARY | 2025-05-19 14:04 | XMS_ITS | Encounter Summary ---
Author Organization [facility] Address [address] [facility] [address] [place] [address] Phone Care Team Providers Care Schedule Hanger Name Role Phone Unknown, Unknown Primary Care Provider Terrence montano Encounter Details Date Type Department Care Team (Late st Contact Info) Description 05/30/2019 Ancillary Orders [facility] [address] [place] [address] [place] [address] Sylvester Hdez, DO [address] [place] [address] Bradycardia Social History Tobacco Use Types Packs/Day [...] dysrhythmias documented in this encounter Care Teams Schedule Hanger Relationship Specialty Start Date End Date Unknown, Unknown, PCP - General 05/23/19 documented as of this encounter Additional Source Comments The information contained in this document represents components of the legal health record. It is not the complete legal health record.[facility]
--- OUTSIDE RECORDS SUMMARY | 2025-05-19 14:04 | XMS_ITS | Encounter Summary ---
Author Organization [employer] Address [address] [facility] [address] 7t [place] [address] Care Team Providers Care Furnace Operator Oil Or Gas Name Role Phone Bridgette Gandhi MD Primary Care Provider [phone] Ramón Bolaños PharmD Unavailable Reason for Visit * Reason Comments Med Refill Encounter Details Date Type Department Care Team (Late st Contact Info) Description 06/07/2023 Refill [facility] [address] [place], [place] [phone] Bridgette Gandhi MD 230 [place], [place] [phone] Social History Tobacco Use Types Packs/Day Years [...] Description 07/10/2025 1:30 PM EST Office Visit [facility] ADULT DENTAL [address] [place] [address] Bubba, Lydia [address] [place] [address] documented as of this encounter Visit Diagnoses Not on filedocumented in this encounter Additional Health Concerns Assessment Noted Time PHQ-9 Depression Total Score: 5 09/11/19 23 10:25 AM EST documented as of this encounter Care Teams Furnace Operator Oil Or Gas Relationship Specialty Start Date End Date Bridgette Gandhi MD 230 [place] [address] PCP - General Family Medicine 07/01/12 Ramón Bolaños, Bradley 230 [place] [address] Pharmacist Internal Medicine 11/18/23 documented as of this encounter
--- OUTSIDE RECORDS SUMMARY | 2025-05-19 14:04 | XMS_ITS | Encounter Summary ---
Author Organization [employer] Address [address] [facility] [address] 7t [place] [address] Care Team Providers Care Climate Change Risk Assessor Name Role Phone Bridgette Gandhi MD Primary Care Provider [phone] Ramón Bolaños PharmD Unavailable [phone] Encounter Details Date Type Department Care Team (Late st Contact Info) Description 06/26/2023 Abstract [facility] ADULT DENTAL 230 [place], [place] [phone] Amarjit Foster DDS [address] [place], [place] [phone] Social History Tobacco Use Types Packs/Day Years [...] Description 07/10/2025 1:30 PM EST Office Visit [facility] ADULT DENTAL [address] [place] [address] Lydia Mac 230 [place] [address] documented as of this encounter Visit Diagnoses Not on filedocumented in this encounter Additional Health Concerns Assessment Noted Time PHQ-9 Depression Total Score: 5 09/11/19 23 10:25 AM EST documented as of this encounter Care Teams Climate Change Risk Assessor Relationship Specialty Start Date End Date Bridgette Gandhi MD [address] [place] [address] PCP - General Family Medicine 07/01/12 Ramón Bolaños, MollyD [address] [place] [address] Pharmacist Internal Medicine 11/18/23 documented as of this encounter
--- OUTSIDE RECORDS SUMMARY | 2025-05-19 14:04 | XMS_ITS | Encounter Summary ---
Author Organization [employer] Address [address] [facility] [address] 7t [place] [address] Care Team Providers Care Bpm Solution Architect Name Role Phone Bridgette Gandhi MD Primary Care Provider [phone] Ramón Bolaños PharmD Unavailable [phone] Encounter Details Date Type Department Care Team (Late st Contact Info) Description 02/17/2025 Orders Only [facility] MEDICINE [address] [place], [place] [phone] Bridgette Gandhi MD 230 [place], [place] [phone] Osteoporosis screening (Primary Dx) Social History Tobacco [...] Description 07/10/2025 1:30 PM EST Office Visit [facility] ADULT DENTAL 230 [place] [address] Bubba, Lydia 230 [place] [address] documented as of this encounter Goals Goal [...] documented as of this encounter Care Teams Bpm Solution Architect Relationship Specialty Start Date End Date Bridgette Gandhi MD 230 [place] [address] PCP - General Family Medicine 07/01/12 Ramón Bolaños, MollyD [address] [place] [address] Pharmacist Internal Medicine 11/18/23 documented as of this encounter
--- OUTSIDE RECORDS SUMMARY | 2025-05-19 14:04 | XMS_ITS | Encounter Summary ---
Author Organization [facility] Address [address] [facility] 7t [place] [address] Care Team Providers Care Operating Room Scheduler Name Role Phone Bridgette Gandhi MD Primary Care Provider Ramón Bolaños PharmD Unavailable [phone] Encounter Details Date Type Department Care Team (Latest Contact Info) Description 06/20/2022 Abstract [facility] CONVERSIONS Dental, Provider, DDS Social History Tobacco [...] Description 07/10/2025 1:30 PM EST Office Visit [facility] ADULT DENTAL 230 [place] [address] Bubba, Lydia 230 [place] [address] documented as of this encounter Visit Diagnoses Not on filedocumented in this encounter Care Teams Operating Room Scheduler Relationship Specialty Start Date End Date Bridgette Gandhi MD 230 [place], [place] [phone] PCP - General Family Medicine 07/01/12 Ramón Bolaños, PharmD 230 [place] [address] Pharmacist Internal Medicine 11/18/23 documented as of this encounter
--- OUTSIDE RECORDS SUMMARY | 2025-05-19 14:04 | XMS_ITS | Encounter Summary ---
Author Organization [employer] Address [address] [facility] [address] 7t [place] [address] Care Team Providers Care Primary Special Educator Name Role Phone Bridgette Gandhi MD Primary Care Provider [phone] Ramón Bolaños PharmD Unavailable [phone] Encounter Details Date Type Department Care Team (Late st Contact Info) Description 08/22/2024 Abstract [facility] MEDICINE [address] [place] [address] [place] Social History Tobacco Use [...] Description 07/10/2025 1:30 PM EST Office Visit [facility] ADULT DENTAL [address] [place] [address] Bubba, Lydia [address] [place] [address] documented as of this encounter Goals Goal [...] documented as of this encounter Care Teams Primary Special Educator Relationship Specialty Start Date End Date Bridgette Gandhi MD 230 [place] [address] PCP - General Family Medicine 07/01/12 Ramón Bolaños, Bradley [address] [place] [address] Pharmacist Internal Medicine 11/18/23 documented as of this encounter
--- OUTSIDE RECORDS SUMMARY | 2025-05-19 14:04 | XMS_ITS | Encounter Summary ---
Author Organization [employer] Address [address] [facility] [address] 7t [place] [address] Care Team Providers Care Conveyor Tender Name Role Phone Bridgette Gandhi MD Primary Care Provider [phone] Ramón Bolaños PharmD Unavailable [phone] Encounter Details Date Type Department Care Team (Late st Contact Info) Description 09/04/2023 Orders Only [facility] MEDICINE 230 [place], [place] [phone] Bridgette Gandhi MD 230 [place], [place] [phone] Chronic pain of both knees (Primary Dx) [...] Description 07/10/2025 1:30 PM EST Office Visit [facility] ADULT DENTAL 230 [place] [address] Bubba, Lydia 230 [place] [address] documented as of this encounter Visit Diagnoses Diagnosis Chronic pain of both knees- Primary documented in this encounter Additional Health Concerns Assessment Noted Time PHQ-9 Depression Total Score: 5 09/11/19 23 10:25 AM EST documented as of this encounter Care Teams Conveyor Tender Relationship Specialty Start Date End Date Bridgette Gandhi MD [address] [place] [address] PCP - General Family Medicine 07/01/12 Ramón Bolaños, Bradley [address] [place] [address] Pharmacist Internal Medicine 11/18/23 documented as of this encounter
--- OUTSIDE RECORDS SUMMARY | 2025-05-19 14:04 | XMS_ITS | Encounter Summary ---
Demographics Address [address] [facility] [address] [place] [address] Mobile Phone Home Phone Work Phone Preferred Language es Marital Status Alevism Affiliation Unknown Race Other Race Ethnic Group Unknown Author Organization [employer] Address [address] [facility] 7t [place] [address] Care Team Providers Care Captain Fire Prevention Bureau Name Role Phone Bridgette Gandhi MD Primary Care Provider [phone] Ramón Bolaños PharmD Unavailable [phone] Reason for Referral * Consultation (Routine) - Closed Specialty Diagnoses / Procedures Referred By Jj t Referred To Contact Orthopaedic Surgery Diagnoses Primary osteoarthritis of both hips Primary osteoarthritis of both knees Bridgette Gandhi MD [address] [place] [address] Phone: tel: fax: [facility] [address] [place] [address] Drive [address] [place], [place] Phone: tel: fax: Referral ID Status Reason Start Date Expiration Date V isits Requested Visits Authorized [id number] Closed Specialty Services Required 02/23/2024 02/22/2025 1 1 Encounter Details Date Type Department Care Team (Late st Contact Info) Description 02/23/2024 Orders Only [facility] MEDICINE 230 [place] [address] Bridgette Gandhi MD [address] [place], [place] [phone] Primary osteoarthritis of both hips (Primary Dx); [...] [facility] 230 [place] [address] Lydia Mac 230 [place] [address] Scheduled Referrals Name Type Priority Associated Diagnoses [...] documented as of this encounter Care Teams Captain Fire Prevention Bureau Relationship Specialty Start Date End Date Bridgette Gandhi MD 230 [place] [address] PCP - General Family Medicine 07/01/12 Ramón Bolaños PharmD [address] [place] [address] Pharmacist Internal Medicine 11/18/23 documented as of this encounter
--- OUTSIDE RECORDS SUMMARY | 2025-05-19 14:04 | XMS_ITS | Encounter Summary ---
Author Organization [employer] Address [address] [place] [address] 7t [place] [address] Care Team Providers Care Officer Lieutenant Name Role Phone Bridgette Gandhi MD Primary Care Provider [phone] Ramón Bolaños PharmD Unavailable [phone] Reason for Referral * Consultation (Routine) - Authorized Specialty Diagnoses / Procedures Referred By Contac t Referred To Contact Cardiology Diagnoses Hypertension, unspecified type Venous insufficiency Ascending aorta dilation (CMS/HCC) Bridgette Gandhi MD [address] [place] [address] Phone: tel: fax: [facility] Referral ID Status Reason Start Date Expiration Date Visits Requested Visits Authorized [id number] Authorized Specialty Services Required 04/06/2025 04/06/2026 1 1 Encounter Details Date Type Department Care Team (Late st Contact Info) Description 04/06/2025 Orders Only [facility] MEDICINE 230 [place], [place] [phone] Bridgette Gandhi MD [address] [place], [place] [phone] Hypertension, unspecified type (Primary Dx); Venous insufficiency; [...] Description 07/10/2025 1:30 PM EST Office Visit [facility] ADULT DENTAL 230 [place] [address] Lydia Mac [address] [place] [address] Scheduled Referrals Name Type Priority Associated Diagnoses [...] documented as of this encounter Care Teams Officer Lieutenant Relationship Specialty Start Date End Date Bridgette Gandhi MD 230 [place] [address] PCP - General Family Medicine 07/01/12 Ramón Bolaños PharmD 230 [place] [address] Pharmacist Internal Medicine 11/18/23 documented as of this encounter
--- OUTSIDE RECORDS SUMMARY | 2025-05-19 14:04 | XMS_ITS | Encounter Summary ---
Author Organization [employer] Address [address] [facility] 7t [place] [address] Care Team Providers Care Starch Dumper Name Role Phone Bridgette Gandhi MD Primary Care Provider [phone] Ramón Bolaños PharmD Unavailable [phone] Reason for Visit * Reason Onset Date Comments Referral 08/27/2023 Encounter Details Date Type Department Care Team (Late st Contact Info) Description 08/27/2023 Telephone [facility] MEDICINE 230 [place], [place] [phone] Bridgette Gandhi MD 230 [place], [place] [phone] Referral Social History Tobacco Use Types Packs/Day [...] 08/27/2023 1:13 PM EST TC from pt's daughter/RESIDENT ENGINEER requesting a renewal of Referral Date of original referral: 09/11/23 Location: [facility] (unsure of exact location) Date: 09/03/23 Time: 3:15 Fax: N/A Specialty: Orthopedic documented in this encounter Plan of Treatment Upcoming Encounters Date Type Department Care Team (Late st Contact Info) Description 07/10/2025 1:30 PM EST Office Visit [facility] ADULT DENTAL [address] [place] [address] Lydia Mac [address] [place] [address] documented as of this encounter Visit Diagnoses Not on filedocumented in this encounter Additional Health Concerns Assessment Noted Time PHQ-9 Depression Total Score: 5 09/11/19 23 10:25 AM EST documented as of this encounter Care Teams Starch Dumper Relationship Specialty Start Date End Date Bridgette Gandhi MD 230 [place], [place] [phone] PCP - General Family Medicine 07/01/12 Ramón Bolaños, MollyD [address] [place] [phone] Pharmacist Internal Medicine 11/18/23 documented as of this encounter
--- OUTSIDE RECORDS SUMMARY | 2025-05-19 14:04 | XMS_ITS | Clinical Summary ---
Author Organization [employer] Address [address] [facility] [address] [place] [address] Care Team Providers Care Director Of Managed Services Name Role Phone Bridgette Fagan MD Primary Care Provider [phone] Ramón Bolaños PharmD Unavailable [phone] Allergies Active Allergy Reactions Criticality Noted Date [...] 12 04/27/20 23 Active Deep Sea Nasal [place] 0.65 % nasal spray USE 1-2 SPRAYS [...] 12/02/19 24 Active Lancets (OneTouch Delica Plus Sihriv51E) miscIndications: Type 2 diabetes mellitus without complications [...] (11/04/2024 6:10 AM EDT): - following with [facility] urology, last seen on 09/26/24 - continue adequate hydration - s/p bladder stone removal on 09/13/24 Assessment & Plan (08/25/2024 2:37 PM EST): - following with [facility] urology, last seen on 07/03/24 for cystoscopy - continue adequate hydration - scheduled for bladder stone removal with Dr. Ayala Assessment & Plan (08/11/2024 6:19 AM EST): - following with [facility] urology, last seen on 07/03/24 for cystoscopy -recommended adequate hydration and following plan per urologist Fractured dental mormon with loss of materi al 08/01/2024 Caries [...] aorta measuring 4.00 cm - Followed by [facility], monitor with echo every 6-12 months - Continue BP management - Referred to [facility] cardiology per patient's family's request since [facility] moved to [place] Assessment & Plan (11/04/2024 6:07 AM EDT): - 11/26/23 Echo showed mild dilatation of the ascending aorta measuring 4.00 cm - Followed by [employer], monitor with echo every 6-12 months - Continue BP management Assessment & Plan (04/07/2024 11:49 AM EDT): - 11/26/23 Echo showed mild dilatation of the ascending aorta measuring 4.00 cm - Followed by [employer], monitor with echo every 6-12 months - Continue BP management Assessment & Plan (01/04/2024 11:35 AM EDT): - 11/26/23 Echo showed mild dilatation of the ascending aorta measuring 4.00 cm - Followed by [employer], monitor with echo every 6-12 months - Continue BP management Periodic limb movement disorder (PLMD) Assessment & Plan (05/15/2025 7:03 AM EDT): - Noted on his last sleep study - Previously seeing [facility] neurology / sleep medicine clinic. Reconnect care. [...] MRI on 04/14/23: mild chronic ischemic microangiopathy; [id number] generalized diffuse supratentorial and cerebellar vermian parenchymal [...] MRI on 04/14/23: mild chronic ischemic microangiopathy; [id number] generalized diffuse supratentorial and cerebellar vermian parenchymal [...] Plan (11/04/2023 12:40 PM EDT): -[facility] Recommended to continue conservative management of compression stocking, DASH diet, and leg elevation. Discontinued Diltiazem due to possible side effects. -possible venous ablation -06/02/23 venous study showed b/l venous insufficiency. -recommended to discuss with his wirer maintenance and vascular specialist at [facility] for other treatment options, if appropriate -discontinued amlodipine and hydralazine recently - continue torsemide Assessment & Plan (08/14/2023 11:15 AM EST): -[facility] Apr 2021. Recommended to continue conservative management of compression stocking, DASH diet, and leg elevation. Discontinued Diltiazem due to possible side effects. -possible venous ablation -06/02/23 venous study showed b/l venous insufficiency. -recommended to discuss with his wirer maintenance and vascular specialist at [facility] for other treatment options, if appropriate Assessment & Plan (05/11/2023 8:29 AM EDT): -[facility] Apr 2021. Recommended to continue conservative management of compression stocking, DASH diet, and leg elevation. Discontinued Diltiazem due to possible side effects. -possible venous ablation -schedule venous study Assessment & Plan (2022 9:36 AM EST): -[facility] Apr 2021. Recommended to continue conservative management of compression stocking, DASH diet, and leg elevation. Discontinued Diltiazem due to possible side effects. -possible venous ablation Lumbar radiculopathy 2022 Assessment & Plan (05/15/2025 7:07 AM EDT): - last evaluated by paint grinder in March 2025 - last injection treatment [...] APAP and diclofenac topical Referred back to [facility] Pain management Discussed with him and patient [...] Tylenol prn - Following with Pain management, [facility] - last injection treatment left L3-L4 transforaminal epidural steroid injection for lumbar radiculopathy and lumbar degenerative disc disease in February 2025 - Previously tried PT; declined further PT, but agreed to see Dr. Hoang - MRI on 09/29/22 showing spinal stenosis with compression of the Exiting right L5 nerve root. 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, [...] to pt's questionable adherence - co-managed with wirer maintenance, training and development director, wildlife conservation professor, and pharmacist - 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, [...] to pt's questionable adherence - comanaged with wirer maintenance, training and development director, wildlife conservation professor, and pharmacist - 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, [...] to pt's questionable adherence - comanaged with wirer maintenance, training and development director, wildlife conservation professor, and pharmacist - 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, [...] to pt's questionable adherence - comanaged with wirer maintenance, training and development director, and pharmacist - check primary aldosteronism; may [...] to pt's questionable adherence - comanaged with wirer maintenance, training and development director, and pharmacist - check primary aldosteronism; may [...] to pt's questionable adherence - comanaged with wirer maintenance, training and development director, and pharmacist - check primary aldosteronism; may [...] to pt's questionable adherence - comanaged with wirer maintenance, wildlife conservation professor, and pharmacist -?24-hr ambulatory BP monitor result [...] 2024, treated with azithromycin. - Restarted seeing [facility] Pulmonology providers. Seen by Dr. [...] the ascending aorta measuring 4.00 cm. Seeing [facility] Pulmonology Dr. Castillo last on 06/20/24, He [...] 2024, treated with azithromycin. - Restarted seeing [facility] Pulmonology providers. Seen by Dr. [...] 2024, treated with azithromycin. - Restarted seeing [facility] Pulmonology providers. Seen by Dr. [...] 2024, treated with azithromycin. - Restarted seeing [facility] Pulmonology providers. Seen by Dr. [...] received prednisone and azithromycin. - Restarted seeing [facility] Pulmonology providers. Seen by Dr. [...] received prednisone and azithromycin. - Restarted seeing [facility] Pulmonology providers. Seen by Dr. [...] received prednisone and azithromycin. - Restarted seeing [facility] Pulmonology providers. Last seen by [...] PLAN FOR COPD (CHRONIC OBSTRUCTIVE PULMONARY DISEASE) ([facility] WRITTEN ON 08/13/2023 4:56 AM BY BRIDGETTE FAGAN MD Last exacerbation due to CAP in Aug 2017 Following with [facility] pulmonology, Dr. Cruz Continue Advair [...] PLAN FOR COPD (CHRONIC OBSTRUCTIVE PULMONARY DISEASE) ([facility]) WRITTEN ON 05/11/2023 8:27 AM BY BRIDGETTE FAGAN MD Last exacerbation due to CAP in Aug 2017 Following with [facility] pulmonology, Dr. Cruz Continue Advair [...] to CAP in Aug 2017 Following with [facility] pulmonology, Dr. Cruz Continue Advair [...] -Restarted auto-PAP in 2019 -Currently followed by [facility] sleep clinic, last appointment in May 2024, auto-PAP 8-20 cm H2O -Continue current setting -Work on lifestyle modifications Assessment & Plan (02/17/2025 9:17 AM EDT): -Last sleep study on 07/22/2018. Dx SHANON -Restarted auto-PAP in 2020 -Currently followed by [facility] sleep clinic, last appointment in May 2023, auto-PAP 8-20 cm H2O -Continue current setting -Work on lifestyle modifications Assessment & Plan (11/01/2024 8:37 AM EDT): -Last sleep study on 07/22/2018. Dx SHANON -Restarted auto-PAP in 2019 -Currently followed by [facility] sleep clinic, last appointment in May 2023, auto-PAP 8-20 cm H2O -Continue current setting -Work on lifestyle modifications Assessment & Plan (08/25/2024 2:39 PM EST): -Last sleep study on 07/22/2018. Dx SHANON -Restarted auto-PAP in 2019 -Currently followed by [facility] sleep clinic, last appointment in May 2023, auto-PAP 8-20 cm H2O -Continue current setting -Work on lifestyle modifications Assessment & Plan (08/04/2024 10:59 PM EST): -Last sleep study on 07/22/2018. Dx SHANON -Restarted auto-PAP in 2019 -Currently followed by [facility] sleep clinic, last appointment in May 2023, auto-PAP 8-20 cm H2O -Continue current setting -Work on lifestyle modifications Assessment & Plan (04/07/2024 11:48 AM EDT): -Last sleep study on 07/22/2018. Dx SHANON -Restarted auto-PAP in 2019 -Currently followed by [facility] sleep clinic, last appointment in May 2023, auto-PAP 8-20 cm H2O -Continue current setting -Work on lifestyle modifications Assessment & Plan (08/13/2023 4:54 AM EST): -Last sleep study on 07/22/2018. Dx SHANON -Restarted auto-PAP in 2019 -Currently followed by [facility] sleep clinic, last appointment in May 2023, auto-PAP 8-20 cm H2O -Continue current setting -Work on lifestyle modifications Assessment & Plan (05/11/2023 8:26 AM EDT): -Last sleep study on 07/22/2018. Dx SHANON -Restarted auto-PAP in 2019 -Currently followed by [facility] sleep clinic, last appt in 12/31/21, auto-PAP 8-20 cm H2O -Pt received new CPAP machine and now scheduled for Mask Fitting d/t pain on his head. -Continue current setting -Work on lifestyle modifications -Will request [facility] sleep medicine clinic to follow up and provide recommendation. Assessment & Plan (01/21/2023 10:57 AM EDT): -Last sleep study on 07/22/2018. Dx SHANON -Restarted auto-PAP in 2019 -Currently followed by [facility] sleep clinic, last appt in 11/13/22 , New CPAP was prescribed. APAP 8-20 cmH2O. -Continue current setting -Work on lifestyle modifications Assessment & Plan (2022 2:08 PM EST): -Last sleep study on 07/22/2018. Dx SHANON -Restarted auto-PAP in 2019 -Currently followed by [facility] sleep clinic, last appt in 12/31/21, auto-PAP 8-20 cm H2O -Pt received new CPAP machine and now scheduled for Mask Fitting d/t pain on his head. -Continue current setting -Work on lifestyle modifications -Will request [facility] sleep medicine clinic to follow up and provide recommendation. Assessment & Plan (09/24/2022 10:57 AM EST): -Last sleep study on 07/22/2018. Dx SHANON -Restarted auto-PAP in 2019 -Currently followed by [facility] sleep clinic, last appt in [...] check with Lung Cancer screening program in [facility] for next CT scan schedule [...] (11/04/2024 11:22 AM EDT): - following with [facility] Urology - s/p TURP and bladder stone removal on 09/13/24 - continue doxazosin and finasteride Assessment & Plan (08/25/2024 2:37 PM EST): - following with [facility] Urology - continue doxazosin and finasteride Assessment & Plan (08/11/2024 6:20 AM EST): - following with [facility] Urology - continue doxazosin and [...] Description 05/03/2025 11:00 AM EDT Office Visit [facility] [place] [address] Bridgette Fagan MD Hypertension, unspecified type (Primary [...] Generic External Data 05/03/2025 Travel 05/02/2025 Telephone [facility] [place] [address] Bridgette Fagan MD CHART PREP 04/11/2025 Telephone [facility] [place] [address] Bridgette Fagan MD Records Request 04/06/2025 Orders Only [facility] [place] [address] Bridgette Fagan MD Hypertension, unspecified type (Primary Dx); Venous insufficiency; Ascending aorta dilation (CMS/HCC) 04/06/2025 Telephone [facility] [place] [address] Bridgette Fagan MD Referral 02/20/2025 Telephone [facility] [place] [address] Bridgette Fagan MD Appointment Request 02/17/2025 Orders Only [facility] [place] [address] Bridgette Fagan MD Osteoporosis screening (Primary Dx) [...] Description 07/10/2025 1:30 PM EST Office Visit [facility] ADULT DENTAL [address] [place], [place] [phone] Greg Macaris [address] [place] [address] Health Maintenance Due Date Last Done Comments [...] complication, without long-term current use of insulin ([facility]) PROPHYLAXIS - ADULT Routine 01/06/2025 1 0:00 AM EDT Dental plaque ALBUMIN, RANDOM URINE W/CREATININE Routine 10/28/2024 9:15 AM EDT Controlled type 2 diabetes mellitus without complication, without long-term current use of insulin ([facility]) LIPID PANEL WITH REFLEX TO DIRECT LDL Routine 10/28/2024 9:15 AM EDT Controlled type 2 diabetes mellitus without complication, without long-term current use of insulin ([facility]) BITEWING - SINGLE RADIOGRAPHIC IMAGE [...] PSA,Total (Free>4and<10) 1.14 0.00 - 4.00 ng/mL [facility] Comment:A Free PSA was not [...] Provider LAB BLOOD ORDERAB LES Final Result [facility] [address] [place] [address] [phone] * (ABNORMAL) POCT glycosylated hemoglobin (Hgb [...] 9:15 AM EDT) Triglycerides 125 <150 mg/dL [facility] Comment:Desirable Triglyceri de: less than 150 mg/dLBorderline High Triglyceride 150-199 mg/dLHigh Triglyceride: 200-499 mg/dLVery High Triglyceride: greater than or equal to 5OO mg/dL Cholesterol 126 <200 mg/dL [facility] Comment:Desirable Cholestero l: less than 200 mg/dLBorderline High Cholesterol: 200-239 mg/dLHigh Cholesterol: greater than 239 mg/dL LDL Cholesterol Calculated 58 <100 mg/dL [facility] Comment:Desirable LDL: less than 100 mg/dLNear Optimal/Above Optimal LDL: 110- 129 mg/dLBorderline High LDL: 130-159 mg/dLHigh LDL: 160-189 mg/dLVery High LDL: greater than or equal to 190 mg/dL HDL Cholesterol 43 >40 mg/dL [facility] Comment:Desirable HDL: great er than 40 mg/dL Note: This HDL assay may give artificially low results in patients with liver disease. Blood 10/28/2024 9:15 AM EDT 10/28/2024 11:15 AM EDT us Bridgette Fagan MD LAB BLOOD ORDERABLES Final Resul t [facility] [address] [place] [phone] * (ABNORMAL) Albumin, Random Urine W/Creatinine (10/28/2024 9:15 AM EDT) Creatinine, Urine 247.97 mg/dL [facility] Microalbumin Urine 145.0 mg/L [facility] Microalbum Creatinine Ratio Ur 58.4(H) <30 ug/mg cr [facility] Comment:Albumin/Creatinine R atio Reference Ranges: Normal: < 30 ug/mg creatinine Microalbuminuria: 30 - 300 ug/mg creatinineClinical Albuminuria: > 300 ug/mg creatinine Urine 10/28/2024 9:15 AM EDT 10/28/2024 11:14 AM EDT Bridgette Fagan MD LAB URINE ORDERABLES Final Resul t [facility] [address] [place] [phone] * Hm Diabetes Eye Exam (06/29/2024) Eye Exam Normal Normal 06/29/2024 us Historical Provider HEALTH MAINTENANCE Final Result * CT Lung Screening Low dose (12/22/2023 9:58 AM EDT) Anatomical Region Laterality Modality Lung Computed Tomogra phy 12/22/2023 9:58 AM EDT Narrative 12/27/2023 11:40 PM EDT [address] [address] [address] Scan Report Signed Patient: Bharathi Walsh R#: [id number] : 1945 Acct:[id number] Age/Sex: 78 / M ADM Date: 12/22/23 Loc: HO.CT Attending Dr: Tc Castillo MD Ordering Physician: Tc Castillo MD Date of Service: 12/22/23 Procedure(s): CT lung screening Accession Number(s): [id number] cc: Tc Castillo MD; Bridgette Fagan MD [...] for CT CHEST LOW DOSE CANCER SCREENING ([id number]) can be placed. Dictated By: Kun Enciso MD Signed By: <Electronically signed by Kun Enciso MD in OV> 12/27/23 2336 DD/ 0958 TD/TT: Head Loft Worker: SS Procedure Note Donotuseinterpreter, Image - 12/27/[address] [address] [address] Scan Report Signed Patient: Shalom Walsh R#: [id number] : 6Acct:[id number] Age/Sex: 78 / MADM Date: 12/22/23 Loc: .CT Attending Dr: Tc Castillo MD Ordering Physician: Tc Castillo MD Date of Service: 12/22/23 Procedure(s): CT lung screening Accession Number(s): [id number] cc: Tc Castillo MD; Bridgette Fagan MD [...] for CT CHEST LOW DOSE CANCER SCREENING ([id number]) can be placed. Dictated By: Kun Enciso MD Signed By: <Electronically signed by Kun Enciso MD in OV> 12/27/23 2336 DD/ 0958 TD/TT: Head Loft Worker: ANGELA [facility] External Provider IMG CT PROCEDURES Edited Result - Final from Last 3 Months or Most Recently Relevant to Health Maintenance Insurance [facility] - [facility] * Guarantor: Bharathi Walsh Account Type Relation to Patient Date of Phone Billing Address Personal/Family Self [address] [place] [address] * Guarantor: Bharathi Walsh Account Type Relation to Patient Date of Phone Billing Address Personal/Family Self [address] [place] [address] Care Teams Director Of Managed Services Relationship Specialty Start Date End Date Bridgette Fagan MD [address] [place] [phone] PCP - General Family Medicine 07/01/12 Ramón Bolaños, PharmD [address] [place] [phone] Pharmacist Internal Medicine 11/18/23
--- OUTSIDE RECORDS SUMMARY | 2025-05-19 14:04 | XMS_ITS | Encounter Summary ---
Author Organization [employer] Address [address] [place] [address] Care Team Providers Care Marketing Content Coordinator Name Role Phone Bridgette Gandhi MD Primary Care Provider [phone] Ramón Bolaños PharmD Unavailable [phone] Encounter Details Date Type Department Care Team (Late st Contact Info) Description 08/28/2023 Orders Only [facility] MEDICINE [address] [place], [place] [phone] Bridgette Gandhi MD [address] [place], [place] [phone] Social History Tobacco Use Types Packs/Day Years [...] 07/10/2025 1:30 PM EST Office Visit [facility] ADULT DENTAL [address] [place] [address] Lydia Mac [address] [place] [address] documented as of this encounter Visit Diagnoses Not on filedocumented in this encounter Additional Health Concerns Assessment Noted Time PHQ-9 Depression Total Score: 5 09/11/19 23 10:25 AM EST documented as of this encounter Care Teams Marketing Content Coordinator Relationship Specialty Start Date End Date Bridgette Gandhi MD [address] [place] [address] PCP - General Family Medicine 07/01/12 Ramón Bolaños, Bradley [address] [place] [phone] Pharmacist Internal Medicine 11/18/23 documented as of this encounter
--- OUTSIDE RECORDS SUMMARY | 2025-05-19 14:04 | XMS_ITS | Encounter Summary ---
Author Organization [employer] Address [address] [facility] [address] [place] [address] Care Team Providers Care Care Management Associate Name Role Phone Bridgette Gandhi MD Primary Care Provider Ramón Bolaños PharmD Unavailable Encounter Details Date Type Department Care Team (Late Contact Info) Description 04/30/2023 Abstract [facility] MED[facility]INE [address] [place] [address] Bridgette Gandhi MD [address] [place], [place] [phone] Social History Tobacco Use Types Packs/Day Years [...] 1:30 PM EST Office Visit [facility] ADULT DENTAL [address] [place] [address] Lydia Mac [address] [place] [address] documented as of this encounter Procedures Procedure [...] documented as of this encounter Care Teams Care Management Associate Relationship Specialty Start Date End Date Bridgette Gandhi MD [address] [place] [address] PCP - General Family Medicine 07/01/12 Ramón Bolaños, MollyD [address] [place] [address] Pharmacist Internal Medicine 11/18/23 documented as of this encounter
--- OUTSIDE RECORDS SUMMARY | 2025-05-19 14:04 | XMS_ITS | Encounter Summary ---
Author Organization [employer] Address [address] [facility] [address] [place] [address] Care Team Providers Care Ornamental Iron Erector Name Role Phone Bridgette Gandhi MD Primary Care Provider [phone] Ramón Bolaños PharmD Unavailable [phone] Reason for Visit * Reason Onset Date Comments Referral 04/06/2025 Encounter Details Date Type Department Care Team (Late st Contact Info) Description 04/06/2025 Telephone [facility] MEDICINE [address] [place], [place] [phone] Bridgette Gandhi MD [address] [place], [place] [phone] Referral Social History Tobacco Use Types Packs/Day [...] a referral for a cardiology place in [place]. Contact pt at Daughter at [phone] Need reporting lead documented in this encounter Plan of Treatment Upcoming Encounters Date Type Department Care Team (Late st Contact Info) Description 07/10/2025 1:30 PM EST Office Visit [facility] ADULT DENTAL [address] [place], [place] [phone] Greg Macaris [address] [place] [address] documented as of this encounter Goals Goal [...] documented as of this encounter Care Teams Ornamental Iron Erector Relationship Specialty Start Date End Date Bridgette Gandhi MD [address] [place] [address] PCP - General Family Medicine 07/01/12 Ramón Bolñaos PharmD [address] [place] [phone] Pharmacist Internal Medicine 11/18/23 documented as of this encounter
--- OUTSIDE RECORDS SUMMARY | 2025-05-19 14:04 | XMS_ITS | Encounter Summary ---
Author Organization [employer] Address [address] [place] [address] Care Team Providers Care Corpsman Name Role Phone Bridgette Gandhi MD Primary Care Provider Ramón Bolaños PharmD Unavailable [phone] Encounter Details Date Type Department Care Team (Late st Contact Info) Description 09/22/2023 Orders Only [facility] MEDICINE [address] [place], [place] [phone] Bridgette Gandhi MD [address] [place], [place] [phone] Chronic obstructive pulmonary disease, unspecified COPD type [...] Description 07/10/2025 1:30 PM EST Office Visit [facility] ADULT DENTAL [address] [place] [address] Bubba, Lydia [address] [place] [address] documented as of this encounter Visit Diagnoses Diagnosis Chronic obstructive pulmonary disease, unspecified COPD type (CMS/HCC) (HCC)- Primary Obstructive sleep apnea syndrome Obstructive sleep apnea (adult) (pediatric) documented in this encounter Additional Health Concerns Assessment Noted Time PHQ-9 Depression Total Score: 5 09/11/19 23 10:25 AM EST documented as of this encounter Care Teams Corpsman Relationship Specialty Start Date End Date Bridgette Gandhi MD [address] [place] [address] PCP - General Family Medicine 07/01/12 Ramón Bolaños, Bradley [address] [place] [phone] Pharmacist Internal Medicine 11/18/23 documented as of this encounter
--- OUTSIDE RECORDS SUMMARY | 2025-05-19 14:04 | XMS_ITS | Encounter Summary ---
Author Organization [employer] [facility] Address [address] [place] [address] 7[address] [place] [address] Care Team Providers Care Computer Tech Name Role Phone Bridgette Gandhi MD Primary Care Provider Ramón Bolaños PharmD Unavailable Encounter Details Date Type Department Care Team (Late st Contact Info) Description 07/30/2022 Abstract [facility] ADULT DENTAL [address] [place] [address] Lydia Mac [address] [place] [address] Social History Tobacco Use Types Packs/Day Years [...] Description 07/10/2025 1:30 PM EST Office Visit [facility] ADULT DENTAL [address] [place] [address] Lydia Mac [address] [place] [address] documented as of this encounter Procedures Procedure [...] on filedocumented in this encounter Care Teams Computer Tech Relationship Specialty Start Date End Date Bridgette Gandhi MD [address] [place] [address] PCP - General Family Medicine 07/01/12 Ramón Bolaños PharmD [address] [place] [address] Pharmacist Internal Medicine 11/18/23 documented as of this encounter
--- OUTSIDE RECORDS SUMMARY | 2025-05-19 14:04 | XMS_ITS | Encounter Summary ---
Author Organization [employer] [facility] Address [address] [facility] [address]t [place] [address] Care Team Providers Care Stock Handler Name Role Phone Bridgette Gandhi MD Primary Care Provider Ramón Bolaños PharmD Unavailable [phone] Encounter Details Date Type Department Care Team (Late st Contact Info) Description 07/31/[address] [facility] ADULT DENTAL [address] [place] [address] Lydia Mac [address] [place] [address] Social History Tobacco Use Types Packs/Day Years [...] Description 07/10/2025 1:30 PM EST Office Visit [facility] ADULT DENTAL [address] [place] [address] Lydia Mac [address] [place] [address] documented as of this encounter Visit Diagnoses Not on filedocumented in this encounter Care Teams Stock Handler Relationship Specialty Start Date End Date Bridgette Gandhi MD [address] [place] [address] PCP - General Family Medicine 07/01/12 Ramón Bolaños, MollyD [address] [place] [phone] Pharmacist Internal Medicine 11/18/23 documented as of this encounter
--- OUTSIDE RECORDS SUMMARY | 2025-05-19 14:04 | XMS_ITS | Encounter Summary ---
Author Organization [employer] Address [address] [facility] [address]t [place] [address] Care Team Providers Care Neurology Teacher Name Role Phone Bridgette Gandhi MD Primary Care Provider [phone] Ramón Bolaños PharmD Unavailable [phone] Reason for Visit * Reason Comments Med Refill Encounter Details Date Type Department Care Team (Late st Contact Info) Description 03/10/2024 Refill [facility] MEDICINE [address] [place], [place] [phone] Bridgette Gandhi MD [address] [place], [place] [phone] Social History Tobacco Use Types Packs/Day Years [...] Description 07/10/2025 1:30 PM EST Office Visit [facility] ADULT DENTAL [address] [place] [address] Greg Macaris [address] [place] [address] documented as of this encounter Goals Goal [...] documented as of this encounter Care Teams Neurology Teacher Relationship Specialty Start Date End Date Bridgette Gandhi MD [address] [place] [address] PCP - General Family Medicine 07/01/12 Ramón Bolaños, MollyD [address] [place] [phone] Pharmacist Internal Medicine 11/18/23 documented as of this encounter
--- OUTSIDE RECORDS SUMMARY | 2025-05-19 14:04 | XMS_ITS ---
Author Name Nadira KNOWLES Qi Address [address] [place] [address] Phone [phone] [facility] Care Team Providers Care Pharmaceutical Specialty Representative Name Role Phone Qi Waddell Unavailable [phone] NEENA FAGANO Unavailable [phone] Unavailable Unavailable Unavailable Unavailable Unavailable Unavailable Reason [...] 2022-03-10 No Data Available [place] Nasal [place] 0.65 % Solution USE 1-2 SPRAYS IN [...] routinely, and DEONNA Consult for memory evaluation orderedPrevious: 10/29 referred to PCP/ Neuro for mini mentalhe is currently aox4 states he is forgetful at times but it is no consistent 10/27/2023:Stable.Follows up with PCP.Not taking any medications. Denies any acute complaint. MDD (major depressive disorder), recurrent episode, mild Active 2022-09-30 N/A StableDenies betsy leone SI/HI Discussed coping mechanisms, provided information on benefits of verbal therapy, provided information on suicide hotline if SI begins, discussed safety, and contact us if worsening depressions, or SI/HI develop. Per patient request, psychiatric therapy referral placed. Previous: 10/27/2023:Follows up with PCP.Stable. Taking: Sertraline 25 mg Tab TAKE 1 TABLET BY MOUTH EVERY MORNING.Denies any acute complaint.Denies any SI or HI. Continue treatment as prescribed, follow up as instructed.Contact CB 24/7 as needed. Morbid (severe) obesity due to excess calories Active 2022-09-30 N/A StableBMI: 41 .00Discussed diet, exercise, and lifestyle modifications to assist with losing weight to achieve normal BMI. Continue f/u care and monitoring with PC every 3-6 months Previous: 10/27/2023:BMI: 36.15 DMWeight management by diet modification [...] Follow up with PCP as scheduled.Contact CB / as needed.05/30/2024 patient states he is controlled Other problems related to medical facilities and other health care Active 2023-10-27 N/A PAIN CONTIN GENCY PLANLast updated: 05/18/2025 Member to call for the following symptoms: Fall / Increased pain/ Increased pain meds/ Joint swellingPlanned intervention: Prednisone 50mg daily for 5 days/ Apply heat to affected area/ Apply ice to affected area Hypertensive heart disease with heart failureSecondary hyperaldosteronism Active 2022-10-14 N/A StableLisinop ril, Furosemide, carvedilol, amlodipine Avg BP: 120s/60sContinue taking medications as prescribed, continue monitoring BP, discussed low salt diet, exercise as tolerable, and lifestyle interventions. Contact us if developing emergent HTN s/sx (eg. palpitations, persistent NOLEN< blurry vision)07/25/2024:Follows up with PCP, Paunch Trimmer, last visit 2 weeks ago.Taking: amLODIPine Besylate [...] (chronic obstructive pulmonary disease) Active 2022-10-14 N/A StableAlbuter ol, AdvairDenies recent exacerbated episodes Continue taking medications [...] ophthalmology every 3-6 months 07/25/2024:Follows up with Patent Solicitor.Continues using: Latanoprost drops.Denies any acute complaint. Chronic pain Active 2023-10-27 N/A StableReport s chronic low back pain Takes Tylenol as needed.Uses: Diclofenac Sodium 1 [...] likely not be covered by health plan. [facility] cc info sent to member and [employer]. Advised to f/u with recliner request during 07/27/24 f/u visit with PCP, as may need PT/OT eval. Loose stools Active 2025-05-18 N/A StableReport s intermittent loose stoolDietary and lifestyle interventions [facility] medications - Imodium if diarrhea developsContact CB if having change in BM and continue with PCP. Encounters Encounters Type Facility Date of Service Diagnosis/Co mplaint New patient,40-59min; chronic exacerbation, 2 stable chronic or 1 acute illness add add modifier 95 for video (do not use for phone, instead use 27709-59) [facility]/20[place] Type 2 diabetes mellitus wit h diabetic neuropathy, unspecifiedHypertensive heart disease with heart failureHeart failure, unspecifiedMorbid (severe) obesity due to excess caloriesMajor depressive disorder, recurrent, mildChronic obstructive pulmonary disease, unspecifiedOther amnesiaUnspecified glaucomaBody mass index (bmi) 39.0-39.9, adult New patient,40-59min; chronic exacerbation, 2 stable chronic or 1 acute illness add add modifier 95 for video (do not use for phone, instead use 69277-99) [facility] New patient,40-59min; chronic exacerbation, 2 stable chronic or 1 acute illness add add modifier 95 for video (do not use for phone, instead use 26724-04) [facility] New patient,40-59min; chronic exacerbation, 2 stable chronic or 1 acute illness add add modifier 95 for video (do not use for phone, instead use 96618-96) [facility]20[place] New patient,40-59min; chronic exacerbation, 2 stable chronic or 1 acute illness add add modifier 95 for video (do not use for phone, instead use 75194-82) [facility]20[place] New patient,40-59min; chronic exacerbation, 2 stable chronic or 1 acute illness add add modifier 95 for video (do not use for phone, instead use 02789-05) [facility]2022 New patient,40-59min; chronic exacerbation, 2 stable chronic or 1 acute illness add add modifier 95 for video (do not use for phone, instead use 76514-15) [facility]/20[place] New patient,40-59min; chronic exacerbation, 2 stable chronic or 1 acute illness add add modifier 95 for video (do not use for phone, instead use 49891-48) [facility]/2022 New patient,40-59min; chronic exacerbation, 2 stable chronic or 1 acute illness add add modifier 95 for video (do not use for phone, instead use 22003-79) [facility]/2022 No Data Available [facility]/2022 Type 2 diabetes mellitus wit h diabetic neuropathy, unspecifiedMorbid (severe) obesity due to excess caloriesMajor depressive disorder, recurrent, mildHeart failure, unspecifiedHypertensive heart disease with heart failureChronic obstructive pulmonary disease, unspecifiedOther amnesiaUnspecified glaucoma No Data Available [facility] 10[place]/2022 No Data Available [facility]/2022 Estab. patient 30-39min; chronic exacerbation, 2 stable chronic or 1 acute illness add add modifier 95 for video, (do not use for phone, instead use 60755-47) [facility]/2023 Type 2 diabetes mellitus wit h [...] (do not use for phone, instead use 06173-76) [facility]/2023 Estab. patient 30-39min; chronic exacerbation, 2 stable chronic or 1 acute illness add add modifier 95 for video, (do not use for phone, instead use 23825-56) [facility] [place]20[place] Estab. patient 30-39min; chronic exacerbation, 2 stable chronic or 1 acute illness add add modifier 95 for video, (do not use for phone, instead use 74247-72) [facility] [place] 10[place]/2023 Estab. patient 30-39min; chronic exacerbation, 2 stable chronic or 1 acute illness add add modifier 95 for video, (do not use for phone, instead use 08257-04) [facility]20[place] Estab. patient 30-39min; chronic exacerbation, 2 stable chronic or 1 acute illness add add modifier 95 for video, (do not use for phone, instead use 80227-48) [facility] Estab. patient 30-39min; chronic exacerbation, 2 stable chronic or 1 acute illness add add modifier 95 for video, (do not use for phone, instead use 48557-26) [facility] Estab. patient 30-39min; chronic exacerbation, 2 stable chronic or 1 acute illness add add modifier 95 for video, (do not use for phone, instead use 18902-76) [facility] Estab. patient 30-39min; chronic exacerbation, 2 stable chronic or 1 acute illness add add modifier 95 for video, (do not use for phone, instead use 88455-19) [facility] Estab. patient 30-39min; chronic exacerbation, 2 stable chronic or 1 acute illness add add modifier 95 for video, (do not use for phone, instead use 57347-28) [facility]20[place] Estab. patient 20-29min; 1 stable chronic or 2 minor; add add modifier 95 for video, modifier 93 for phone [facility] 05[place]/2024 Other chronic painOther prob lems related to medical facilities and other health care Estab. patient 20-29min; 1 stable chronic or 2 minor; add add modifier 95 for video, modifier 93 for phone [facility] 05[place]/20[place] Estab. patient 20-29min; 1 stable chronic or 2 minor; add add modifier 95 for video, modifier 93 for phone [facility]/20[place] Estab. patient 20-29min; 1 stable chronic or 2 minor; add add modifier 95 for video, modifier 93 for phone [facility]/20[place] Estab. patient 20-29min; 1 stable chronic or 2 minor; add add modifier 95 for video, modifier 93 for phone [facility]/30/20[place] Estab. patient 20-29min; 1 stable chronic or 2 minor; add add modifier 95 for video, modifier 93 for phone [facility]/20[place] Estab. patient 20-29min; 1 stable chronic or 2 minor; add add modifier 95 for video, modifier 93 for phone [facility] No Data Available [facility]/2024 Hypertensive heart disease w ith heart failureHeart failure, unspecifiedSecondary hyperaldosteronismChronic obstructive pulmonary disease, unspecifiedUnspecified glaucomaOther problems related to medical facilities and other health careOther chronic pain No Data Available [facility] No Data Available [facility] Estab. patient 10-29min; 1 minor problem; add add modifier 95 for video, modifier 93 for phone [facility] 05[place]2025 Other problems related to sc dical facilities and other health careType 2 diabetes mellitus with diabetic neuropathy, unspecifiedType 2 diabetes mellitus with other specified complicationHyperlipidemia, unspecifiedMorbid (severe) obesity due to excess caloriesMajor depressive disorder, recurrent, mildHypertensive heart disease with heart failureSecondary hyperaldosteronismChronic obstructive pulmonary disease, unspecifiedOther amnesiaAlzheimer's disease with early onsetDementia in oth diseases classd elswhr w/o behavrl disturbUnspecified glaucomaOther chronic painEnlarged prostate without lower urinary tract symptomsOther fecal abnormalities Estab. patient 10-29min; 1 minor problem; add add modifier 95 for video, modifier 93 for [facility]20[place] Estab. patient 10-29min; 1 minor problem; add add modifier 95 for video, modifier 93 for [facility]/18/20[place] Estab. patient 10-29min; 1 minor problem; add add modifier 95 for video, modifier 93 for [facility] 05[place]18[place]20[place] Estab. patient 10-29min; 1 minor problem; add add modifier 95 for video, modifier 93 for phone [facility] 05[place]18[place]20[place] Estab. patient 10-29min; 1 minor problem; add add modifier 95 for video, modifier 93 for phone [facility] 05/18/2025 Estab. patient 10-29min; 1 minor problem; add add modifier 95 for video, modifier 93 for phone [facility] 05/18/2025 Estab. patient 10-29min; 1 minor problem; add add modifier 95 for video, modifier 93 for phone [facility] 05/18/2025 Estab. patient 10-29min; 1 minor problem; add add modifier 95 for video, modifier 93 for phone [facility] 05/18/2025 Vital Signs Date of Collection Vitals 2022-10-28 [...] 07:16:41 Pain Scale - 4.0 {sc ore} 2025-05-18 07:46:30 Height - 167.64 cmWe ight - 115.21 kgBody Mass Index (BMI) - 41.0 kg/m2BP Diastolic - 72.0 mm[Hg]BP Systolic - 110.0 mm[Hg]Pain Scale - 7.0 {score} Social History Social History Social History Observation Description Effec tive Time Current Smoking Status Current every day smoker 2025-05-19 Sex Male History of Procedures Procedures Service Procedure code Service date Servicing provider Phone# New patient,40-59min; chronic exacerbation, 2 stable chronic or 1 acute illness add add modifier 95 for video (do not use for phone, instead use 97217-75) [id number] 2022-10-28 No Data Available No Data Availa [...] No Data Nancy ilable No Data Available [id number] 2022-10-29 No Data Available No Data Available [...] (do not use for phone, instead use 21529-18) [id number] 2023-10-27 No Data Available No Data Availa [...] 95 for video, modifier 93 for phone [id number] 2024-05-30 No Data Available No Data Availa [...] le No Data Available No Data Available [id number] 2024-07-25 No Data Available No Data Available Medication List Documented (1159F) 1159F 2024-07-25 No Data Available No Data Nancy ilable Pain Assessment - Pain Documented on a Pain Scale (1125F) 1125F 2024-07-25 No Data Available No Data Nancy ilable Estab. patient 10-29min; 1 minor problem; add add modifier 95 for video, modifier 93 for phone [id number] 2025-05-18 No Data Available No Data Availa ble Medication List Documented (1159F) 1159F 2025-05-18 No Data Available No Data Nancy ilable Medication Review by prescribing provider or pharmacist documented (1160F) 1160F 2025-05-18 No Data Available No Data Nancy ilable Functional Status Assessed (1170F) 1170F 2025-05-18 No Data Available No Data Avail able Advance Care Directive Advance care planning discussion documented in the medical record (1158F) 1158F 2025-05-18 No Data Available No Data Availa ble Advance care planning discussed and documented advance care plan or surrogate decision-maker was documented in the medical record. (1123F) 1123F 2025-05-18 No Data Available No Data Availa ble Pain Assessment - NO pain present (1126F) 1126F 2025-05-18 No Data Available No Data A vailable BMI obtained (3008F) 3008F 2025-05-18 No Data Availab le No Data Available Pain Assessment - Pain Documented on a Pain Scale (1125F) 1125F 2025-05-18 No Data Available No Data Nancy ilable Functional Status Functional Category Effective Dates Dressing: Needs Assistance 2023-10-27 Bathing: Needs Assistance 2023-10-27 Eating: Independent 2023-10-27 Activities of Daily Livin2023-10-27 Ambulation/Walking: Needs Assistance, us es cane. 2023-10-27 Toileting: Needs Assistance 2023-10-27 Transferring: Needs Assistance 2023-10-16 2 Cognition Status: Oriented to Person, Pl laz and Time 2025-05-18 ADL: Bathing Needs Assistanc e , Dressing Needs Assistance , Eating Independent , Ambulation Independent , Transferring Independent and Toileting Independent 2025-05-18 IADL: Medication Independent , Meal Prep Needs Assistance , Shopping Needs Assistance , Driving or Public Transport Needs Assistance , Housework Needs Assistance and Finances Needs Assistance 2025-05-18 How many falls within the last 6 months? Denies. 2025-05-18 Near falls within the last 6 months? yes 2025-05-18 Do you feel unsteady on your feet? No 20 25-10-02 Do you worry about falling? No 2 DME used with ambulation: cane 2 Social Supports - # of Inter actions with Friends/Family in a typical week: daily. 2025-05-18 Mental Status Status Date AAOX 3 2023-11-01 [...] Patient Education to avoid future hospitalization: Call [facility] if symptoms of illness develop.Chronic painOther problems related to medical facilities and other health care 2024-07-25 07:16:41 Hypertensive heart d isease with heart failureSecondary hyperaldosteronismCOPD (chronic obstructive pulmonary disease)Glaucoma, right eyeOther problems related to medical facilities and other health careChronic pain 2025-05-18 07:46:30 Other problems relat ed to medical facilities and other health careType 2 diabetes mellitus with diabetic neuropathy, unspecifiedType 2 diabetes mellitus with hyperlipidemiaMorbid (severe) obesity due to excess caloriesMDD (major depressive disorder), recurrent episode, mildHypertensive heart disease with heart failureSecondary hyperaldosteronismCOPD (chronic obstructive pulmonary disease)Memory impairmentAlzheimer's disease with early onsetGlaucoma, right eyeChronic painBPH (benign prostatic hyperplasia)Loose stools Plan of Care Date of Service Plans [...] persistent NOLEN< blurry vision)10/27/2023:Follows up with PCP, Paunch Trimmer, last visit 2 weeks ago.BP: 119/68. Reported [...] ophthalmology every 3-6 months 10/27/2023:Follows up with Patent Solicitor.Continues using: Latanoprost drops.Denies any acute complaint.Reports chronic [...] (no modifier 95)Pain Assessment - Pain Documented (1125F)Continue to see PCP. Follow-up with [facility] as needed for any acute or disease education needs that may arise 09/03.StableLisinopril, Furosemide Avg BP: 120s/60sContinue taking medications as prescribed, continue monitoring BP, discussed low salt diet, exercise as tolerable, and lifestyle interventions. Contact us if developing emergent HTN s/sx (eg. palpitations, persistent NOLEN< blurry vision)07/25/2024:Follows up with PCP, Paunch Trimmer, last visit 2 weeks ago.Taking: amLODIPine Besylate [...] ophthalmology every 3-6 months 07/25/2024:Follows up with Patent Solicitor.Continues using: Latanoprost drops.Denies any acute complaint.PAIN CONTINGENCY [...] likely not be covered by health plan. [facility] cc info sent to member and [employer]. Advised to f/u with recliner request during 07/27/24 f/u visit with PCP, as may need PT/OT eval. 2025-05-18 07:46:30 Medication Review by prescribing provider or pharmacist documented (1160F)Medication List Documented (1159F)Functional Status Assessed (1170F)Advance Care Directive Advance care planning discussion documented in the medical record (1158F)sbdbAdvance care planning discussed and documented advance care plan or surrogate decision-maker was documented in the medical record. (1123F)Pain Assessment - Pain Documented on a Pain Scale (1125F)Estab. patient 20-29min; 1 stable chronic or 2 minor; add add modifier 95 for video, modifier 93 for phoneBMI obtained (3008F)Continue to see PCP. Follow-up with [facility] as needed for any acute or disease education needs that may arise.PAIN CONTINGENCY PLANLast updated: 05/18/2025 Member to call for the following symptoms: Fall / Increased pain/ Increased pain meds/ Joint swellingPlanned intervention: Prednisone 50mg daily for 5 days/ Apply heat to affected area/ Apply ice to affected areaStableMetforminAvg B-120A1c: 6.3% on 09/11/22Continue taking medication, low [...] with PCP as scheduled.Contact CB 24/7 as needed.05/30/2024 patient states he is controlledStableBMI: 41.00Discussed diet, exercise, and lifestyle modifications to assist with losing weight to achieve normal BMI. Continue f/u care and monitoring with PC every 3-6 months Previous: 10/27/2023:BMI: 36.15 DMWeight management by diet modification discussed with patient.Low fat, low carb, low sugar diet.Stay physically active as tolerated.Follow up with PCP. Contact CB 24/7 as needed.StableDenies current SI/HI Discussed coping mechanisms, provided information on benefits of verbal therapy, provided information on suicide hotline if SI begins, discussed safety, and contact us if worsening depressions, or SI/HI develop. Per patient request, psychiatric therapy referral placed. Previous: 10/27/2023:Follows up with PCP.Stable. Taking: Sertraline 25 mg Tab TAKE 1 TABLET BY MOUTH EVERY MORNING.Denies any acute complaint.Denies any SI or HI. Continue treatment as prescribed, follow up as instructed.Contact CB 24/7 as needed.StableLisinopril, Furosemide, carvedilol, amlodipine Avg BP: 120s/60sContinue taking medications as prescribed, continue monitoring BP, discussed low salt diet, exercise as tolerable, and lifestyle interventions. Contact us if developing emergent HTN s/sx (eg. palpitations, persistent NOLEN< blurry vision)07/25/2024:Follows up with PCP, Paunch Trimmer, last visit 2 weeks ago.Taking: amLODIPine Besylate [...] low Sodium diet. Contact CB 24/7 as needed.StableAlbuterol, AdvairDenies recent exacerbated episodes Continue taking medications [...] routinely, and DEONNA Consult for memory evaluation orderedPrevious: 10/29 referred to PCP/ Neuro for mini mentalhe is currently aox4 states he is forgetful at times but it is no consistent 10/27/2023:Stable.Follows up with PCP.Not taking any medications. Denies any acute complaint.StableLatanoprost ggtsContinue using medicated eye drops, monitor for acute changes or worsening vision, and continue f/u care and monitoring with PCP and ophthalmology every 3-6 months 07/25/2024:Follows up with Patent Solicitor.Continues using: Latanoprost drops.Denies any acute complaint.StableReports chronic low back pain Takes Tylenol as needed.Uses: Diclofenac Sodium 1 [...] likely not be covered by health plan. [facility] cc info sent to member and [employer]. Advised to f/u with recliner request during 07/27/24 f/u visit with PCP, as may need PT/OT eval.Follows up with PCP.Taking: Finasteride 5 mg Tab TAKE 1 TABLET BY MOUTH EVERY MORNINGDoing well on current treatment.Denies any acute complaint.Continue treatment as prescribed, follow up as instructed.Contact CB 09/03 as needed.StableReports intermittent loose stoolDietary and lifestyle interventions reviewedOT medications - Imodium if diarrhea developsContact CB if having change in BM and continue with PCP. Goals Date Goal 2022-10-28 Remember to exercise [...] with your PCP and specialists. Call CB 09/03 if you have questions or concerns. [facility] CB / phone number provided. 2024-05-30 At least 50% of time spent counseling pt, discussing diagnosis, treatment plan, compliance, and coordinating followup care. Continue taking medications as directed and keep all follow up appointments with established PCP and Specialist 2025-05-18 Remember to adhere t o dietary and lifestyle interventions. 2025-05-18 Contact CB if develo ping health related concerns. 2025-05-18 Continue f/u care an d monitoring with PCP. Health Concerns Date Concern 2025-05-18 Patient/Guardian agr vince to visit via telehealth. Today, patient has chief complaint of: annual visit.Visit completed via:[x] audio and video; [ ] audio onlyInformed verbal consent was obtained from this patient to communicate and provide care using virtual and other telecommunications tools. This patient has been explained the risks, if any, related to the encounter. I explained that care provided through video or audio communication cannot replace the need for physical examination or an in-person visit for some disorders or urgent problems. 2025-05-18 Concerns for today's visit:No acute concerns or needs.Reviewed allergies, medications, active medical conditions, past medical and surgical history, social history. 2025-05-18 Most recent hospital stay or ER visit:No ER visits or hospitalizations documented in [facility] in last year.Member denies ER visits or hospitalizations in last year.Discussed our goal of helping the member have more days at home rather than in the ER or the hospital. 2025-05-18 Advance Care Plankan browning ConversationDate of Conversation: 05/18/2025Life Limiting Diagnosis: Diagnosis: Type 2 DMCurrently on Hospice NoCode Status: YES CPR: Attempt ResuscitationGoals of Care: Yes to CPR and Curative Treatments: Attempt to sustain life by all medically effective meansNutrition goals: Feeding through new or existing surgically placed tube is okDo you have a Durable Power of Hand Assembler for Healthcare, or Healthcare Proxy Or Guardianship? Yes, preferred proxy but not named POAIf so, Who? daughter, Senait OrtrishazDo you have a written Advance Directive? Has no formal [id number] : AD or surrogate was documented in the medical record. 2025-05-18 Functional Assessmen tADL: Bathing Needs Assistance , Dressing Needs Assistance , Eating Independent , Ambulation Independent , Transferring Independent and Toileting IndependentIADL: Medication Independent , Meal Prep Needs Assistance , Shopping Needs Assistance , Driving or Public Transport Needs Assistance , Housework Needs Assistance and Finances Needs AssistanceHow many falls within the last 6 months? Denies.Near falls within the last 6 months? yesDo you feel unsteady on your feet? NoDo you worry about falling? NoDME used with ambulation: caneSocial Supports - # of Interactions with Friends/Family in a typical week: daily.
--- OUTSIDE RECORDS SUMMARY | 2025-05-19 14:04 | XMS_ITS | Encounter Summary ---
Author Organization [employer] Address [address] [facility] 7t [place] [address] Care Team Providers Care Lens Molding Equipment Operator Name Role Phone Bridgette Gandhi MD Primary Care Provider [phone] Ramón Bolaños PharmD Unavailable [phone] Reason for Visit * Reason Onset Date Comments Medication Question 06/24/2024 Encounter Details Date Type Department Care Team (Late st Contact Info) Description 06/24/2024 Telephone [facility] [address] [place], [place] [phone] Bridgette Gandhi MD [address] [place], [place] [phone] Medication Question Social History Tobacco Use Types [...] broke. If any questions contact pt at [phone] documented in this encounter Plan of Treatment Upcoming Encounters Date Type Department Care Team (Late st Contact Info) Description 07/10/2025 1:30 PM EST Office Visit [facility] [address] [place] [address] Bubba, Lydia [address] [place] [address] documented as of this encounter Goals Goal [...] documented as of this encounter Care Teams Lens Molding Equipment Operator Relationship Specialty Start Date End Date Bridgette Gandhi MD [address] [place] [address] PCP - General Family Medicine 07/01/12 Ramón Bolaños, Bradley [address] [place] [address] Pharmacist Internal Medicine 11/18/23 documented as of this encounter
--- OUTSIDE RECORDS SUMMARY | 2025-05-19 14:04 | XMS_ITS | Encounter Summary ---
Author Organization [employer] Address [address] [facility] 7t [place] [address] Care Team Providers Care Radar Mechanic Name Role Phone Bridgette Gandhi MD Primary Care Provider [phone] Ramón Bolaños PharmD Unavailable [phone] Reason for Visit * Reason Onset Date Comments ER Follow-up 05/26/2024 Nurse Triage 05/26/2024 Encounter Details Date Type Department Care Team (Late st Contact Info) Description 05/26/2024 Telephone [facility] [address] [place], [place] [phone] Bridgette Gandhi MD 230 [place], [place] [phone] ER Follow-up; Nurse Triage Social History Tobacco [...] Please assist with obtaining discharge summary for [facility] ED visit on 05/25/24 for provider review prior to upcoming appointment. Future Appointments Date Time Provider Department Center 05/27/2024 8:45 AM Jeremias Gong MD [facility] 01/11/2025 10:00 AM Susy Dixon PharmD [facility] * Telephone Encounter - Danii Hope [...] Center 05/27/2024 8:45 AM Jeremias Gong MD [facility] 01/11/2025 10:00 AM Susy Dixon PharmD MEDICINE [facility] Insurance verified as active per Real Time [...] ED visit on : Date: 05/25/24 Hospital: [facility] Seen for: Severe hip and [...] Description 07/10/2025 1:30 PM EST Office Visit [facility] ADULT DENTAL [address] [place] [address] Lydia Mac [address] [place] [address] documented as of this encounter Goals Goal [...] documented as of this encounter Care Teams Radar Mechanic Relationship Specialty Start Date End Date Bridgette Gandhi MD 230 [place] [address] PCP - General Family Medicine 07/01/12 Ramón Bolaños, PharmD 230 [place] [address] Pharmacist Internal Medicine 11/18/23 documented as of this encounter
--- OUTSIDE RECORDS SUMMARY | 2025-05-19 14:04 | XMS_ITS | Encounter Summary ---
Author Organization [employer] Address [address] [facility] 7t [place] [address] Care Team Providers Care Run Lead Name Role Phone Bridgette Gandhi MD Primary Care Provider [phone] Ramón Bolaños PharmD Unavailable [phone] Encounter Details Date Type Department Care Team (Late st Contact Info) Description 06/24/2024 Orders Only [facility] [address] [place], [place] [phone] Bridgette Gandhi MD [address] [place], [place] [phone] Social History Tobacco Use Types Packs/Day Years [...] Description 07/10/2025 1:30 PM EST Office Visit [facility] ADULT DENTAL 230 [place] [address] Bubba, Lydia [address] [place] [address] documented as of this encounter Goals Goal [...] documented as of this encounter Care Teams Run Lead Relationship Specialty Start Date End Date Bridgette Gandhi MD [address] [place] [address] PCP - General Family Medicine 07/01/12 Ramón Bolaños, PharmD [address] [place] [address] Pharmacist Internal Medicine 11/18/23 documented as of this encounter
--- OUTSIDE RECORDS SUMMARY | 2025-05-19 14:04 | XMS_ITS | Encounter Summary ---
Author Organization [employer] Address [address] [facility] [address] 7[address] [place] [address] Care Team Providers Care Concrete Buster Operator Name Role Phone Bridgette Gandhi MD Primary Care Provider Ramón Bolaños PharmD Unavailable Encounter Details Date Type Department Care Team (Late st Contact Info) Description 10/09/2022 Orders Only [facility] 230 [place], [place] [phone] Bridgette Gandhi MD [address] [place], [place] [phone] Spinal stenosis of lumbar region with neurogenic [...] Description 07/10/2025 1:30 PM EST Office Visit [facility] ADULT DENTAL [address] [place] [address] Lydia Mac [address] [place] [address] documented as of this encounter Visit Diagnoses Diagnosis Spinal stenosis of lumbar region with neurogenic claudication- Primary documented in this encounter Additional Health Concerns Assessment Noted Time PHQ-9 Depression Total Score: 5 09/11/19 23 10:25 AM EST documented as of this encounter Care Teams Concrete Buster Operator Relationship Specialty Start Date End Date Bridgette Gandhi MD [address] [place] [address] PCP - General Family Medicine 07/01/12 Ramón Bolaños, PharmD [address] [place] [address] Pharmacist Internal Medicine 11/18/23 documented as of this encounter
--- NOTE | 2025-05-19 14:16 | AM.OFFVISNUR ---
Intake Visit Reasons: pvr Allergies Penicillins Allergy (Intermediate, Verified 03/29/25 10:45) RASH Carbapenems Allergy (Unknown, Verified 03/29/25 10:45) Unknown Cephalosporins Allergy (Unknown, Verified 03/29/25 10:45) Unknown enviormental Allergy (Severe, Uncoded 09/26/24 13:07) coughing and sneezing Office Procedures Post Void Residual Post Residual Void Post Void Residual (PVR): 10 01531-Vylv Void Residual by ultrasound Assessment & Plan Assessment & Plan Orders: Orders AMB Urinalysis Automated Today N40.0 - Benign prostatic hyperplasia without lower urinary tract symptoms, N40.1 - Benign prostatic hyperplasia with lower urinary tract symptoms, R35.0 - Frequency of micturition AMB Post Void Residual by ultrasound Today N40.0 - Benign prostatic hyperplasia without lower urinary tract symptoms, N40.1 - Benign prostatic hyperplasia with lower urinary tract symptoms, R35.0 - Frequency of micturition Coding CPT Codes Post Residual Void - PVR CPT Code: 86953-Lrmf Void Residual by ultrasound ([id number])
== END 2025-05-19 14:56 | disposition home or self-care (01) ==
LOC: HO.HUSH 13:56
PROVIDERS: PCP Family Medicine; Visit Provider Urology
DX: Z13.9 Encounter for screening, unspecified (principal)

== ENCOUNTER → 2025-05-19 13:55 | Outpatient (BNVA) | payer OTHER, SELFPAY | PROVIDERS: PCP Family Medicine; Visit Provider Urology | DX: N40.1 Benign prostatic hyperplasia with lower urinary tract symptoms (principal); R35.0 Frequency of micturition | CPT/HCPCS: 51798; 81003 ==

== ENCOUNTER 2025-06-15 15:23 | Outpatient (AMB) | payer OTHER, SELFPAY ==
--- NOTE | 2025-06-15 15:53 | MHC.OFFVIS ---
Intake Visit Reasons: follow up total psa Intake Note: Patient is present for 3 1/2 month follow up Urology Medication:None Antibiotic Allergy:Penicillin Blood Thinner:None PVR:101ml Derrick Follower Required: Yes Derrick Follower Language: Form Grader Operator Name: jn Vasques Information Interpreted: non-clinical & clinical Allergies Penicillins Allergy (Intermediate, Verified 06/15/25 15:54) RASH Carbapenems Allergy (Unknown, Verified 06/15/25 15:54) Unknown Cephalosporins Allergy (Unknown, Verified 06/15/25 15:54) Unknown enviormental Allergy (Severe, Uncoded 09/26/24 13:07) coughing and sneezing Medication List - Last Reconciled 06/15/25 by Kishore Ayala MD albuterol sulfate 90 mcg/actuation 2 puffs inhalation Q4-6H PRN atorvastatin 40 mg PO BEDTIME blood sugar diagnostic (WEbookTouch Ultra Test strips) As directed carvedilol 6.25 mg PO BID cholecalciferol (vitamin D3) 25 mcg PO QAM diltiazem HCl ER (Tiazac) 300 mg PO DAILY doxazosin 8 mg PO BEDTIME finasteride 5 mg PO DAILY fluticasone propionate 50 mcg/actuation 1 - 2 sprays intranasal QAM hydralazine 50 mg PO BID lancets As directed latanoprost 0.005% 1 drp ophthalmic (eye) QPM lisinopril 40 mg PO DAILY@1200 loratadine (Allergy Relief (loratadine)) 10 mg PO DAILY magnesium oxide 400 mg PO BEDTIME 30 days metformin ER 500 mg PO QPM sertraline 25 mg PO QAM torsemide 20 mg PO QAM 30 days umeclidinium-vilanterol 62.5-25 mcg/actuation (Anoro Ellipta) 1 inh inhalation DAILY 30 days HPI Comments Details: 06/15/25 01/02/25--Bharathi is here with his daughter he is doing well as far as urination he does have complaints of chronic back pain urinalysis is negative for blood or leukocytes bladder scan PVR 0 mL we will continue Proscar follow-up in 4 months with PSA at that time. History of Present Illness The patient is a 79-year-old male presenting with benign prostatic hyperplasia (BPH). He reports improvement in his urinary condition, stating that the urine, formerly notable for blood, now appears clear, and his current urine flow is satisfactory without signs of infection. He remains on finasteride, and future follow-up testing is advised to monitor prostate health. 09/26/24--s/p TURP, bladder stone cystolitholipaxy on 09/13/24-- pt here with his daughter, denies significant urge, states voiding well, denies dysuria. Path: Prostate, transurethral resection:- Nodular prostatic stromal hyperplasia (BPH). Bladder stone- Calculous material. 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 Father No problems noted. Brother CAD (coronary artery disease) Sister Alzheimer disease Social History Household Members: Other Household Members Other:: 2 roomates Housing: Apartment Are you a primary acute care assistant to a significant other at home: No Do you presently have visiting nurse or other home services: Yes Alcohol intake: never Patient Tobacco Use Status: Former Tobacco user Cigarette Packs Per Day: 0.5 Cigarettes Per Day: 10.0 Years Smoked: 60 +/- , quit- Oct 12 2023 Office Procedures Post Void Residual Post Residual Void Post Void Residual (PVR): 101 [id number]-[id number] Void Residual by ultrasound Results AMB Urinalysis, Automated UA Leukoctes 0 Isaias/uL Last Edit by Aisha Girard on 06/15/25 17:15 UA Nitrite Negative Last Edit by Aisha Girard on 06/15/25 17:15 UA Urobilinogen 0.2 mg/dL Last Edit by Aisha Girard on 06/15/25 17:15 UA Protein 0 mg/dL Last Edit by Aisha Girard on 06/15/25 17:15 UA pH 6.0 Last Edit by Aisha Girard on 06/15/25 17:15 UA Blood 0 Jhon/uL Last Edit by Aisha Girard on 06/15/25 17:15 UA Specific [place] 1.010 Last Edit by Aisha Girard on 06/15/25 17:15 UA Ketone Negative Last Edit by Aisha Girard on 06/15/25 17:15 UA Bilirubin 0 mg/dL Last Edit by Aisha Girard on 06/15/25 17:15 UA Glucose 0 mg/dL Last Edit by Aisha Girard on 06/15/25 17:15 Assessment & Plan Assessment & Plan Orders: Orders AMB Urinalysis Automated Today Z13.9 - Encounter for screening, unspecified Medications: Refilled finasteride 5 mg PO DAILY 90 tabs 3RF Coding CPT Codes Post Residual Void - PVR CPT Code: 91194-Dysz Void Residual by ultrasound ([id number])
--- OUTSIDE RECORDS SUMMARY | 2025-06-15 17:58 | XMS_ITS | Encounter Summary ---
Author Organization [employer] Address [address] [facility] [address] 7[address] [place] [address] Care Team Providers Care Undercutter Name Role Phone Bridgette Gandhi MD Primary Care Provider [phone] Ramón Bolaños PharmD Unavailable [phone] Encounter Details Date Type Department Care Team (Late st Contact Info) Description 02/17/2025 Orders Only [facility] [address] [place], [place] [phone] Brigdette Gandhi MD [address] [place], [place] [phone] Osteoporosis screening (Primary Dx) Social History Tobacco [...] Description 07/10/2025 1:30 PM EST Office Visit [facility] ADULT [facility] [address] [place] [address] Bubba, Lydia [address] [place] [address] documented as of this encounter Goals Goal [...] documented as of this encounter Care Teams Undercutter Relationship Specialty Start Date End Date Bridgette Gandhi MD [address] [place] [address] PCP - General Family Medicine 07/01/12 Ramón Bolaños, MollyD [address] [place] [address] Pharmacist Internal Medicine 11/18/23 documented as of this encounter
--- OUTSIDE RECORDS SUMMARY | 2025-06-15 17:58 | XMS_ITS | Encounter Summary ---
Author Organization [employer] Address [address] [facility] 7t [place] [address] Care Team Providers Care Microbiology Coordinator Name Role Phone Bridgette Gandhi MD Primary Care Provider Ramón Bolaños PharmD Unavailable Reason for Visit * Reason Comments Med Refill Encounter Details Date Type Department Care Team (Late st Contact Info) Description 10/22/2022 Refill [facility] [address] [place], [place] [phone] Tamela Drake MD [address] [place], [place] [phone] Dyslipidemia (Primary Dx) Social History Tobacco Use [...] Description 07/10/2025 1:30 PM EST Office Visit [facility] ADULT DENT[facility] [address] [place] [address] Lydia Mac [address] [place], [place] [phone] documented as of this encounter Visit Diagnoses Diagnosis Dyslipidemia- Primary Other and unspecified hyperlipidemia documented in this encounter Additional Health Concerns Assessment Noted Time PHQ-9 Depression Total Score: 5 09/11/19 23 10:25 AM EST documented as of this encounter Care Teams Microbiology Coordinator Relationship Specialty Start Date End Date Bridgette Gandhi MD [address] [place] [address] PCP - General Family Medicine 07/01/12 Ramón Bolaños, MollyD [address] [place] [address] Pharmacist Internal Medicine 11/18/23 documented as of this encounter
--- OUTSIDE RECORDS SUMMARY | 2025-06-15 17:58 | XMS_ITS | Encounter Summary ---
Author Organization [employer] Address [address] [facility] [address] 7[address] [place] [address] Care Team Providers Care Industrial Engineering Technologist Name Role Phone Bridgette Gandhi MD Primary Care Provider Ramón Bolaños PharmD Unavailable Encounter Details Date Type Department Care Team (Late st Contact Info) Description 10/09/2022 Orders Only [facility] 230 [place], [place] [phone] Bridgette Gandhi MD 230 [place], [place] [phone] Spinal stenosis of lumbar region with neurogenic [...] Description 07/10/2025 1:30 PM EST Office Visit [facility] ADULT DENTAL [address] [place] [address] Lydia Mac [address] [place] [address] documented as of this encounter Visit Diagnoses Diagnosis Spinal stenosis of lumbar region with neurogenic claudication- Primary documented in this encounter Additional Health Concerns Assessment Noted Time PHQ-9 Depression Total Score: 5 09/11/19 23 10:25 AM EST documented as of this encounter Care Teams Industrial Engineering Technologist Relationship Specialty Start Date End Date Bridgette Gandhi MD [address] [place] [address] PCP - General Family Medicine 07/01/12 Ramón Bolaños, PharmD [address] [place] [address] Pharmacist Internal Medicine 11/18/23 documented as of this encounter
--- OUTSIDE RECORDS SUMMARY | 2025-06-15 17:59 | XMS_ITS | Encounter Summary ---
Author Organization [employer] Address [address] [facility] 7t [place] [address] Care Team Providers Care Business Banking Manager Name Role Phone Bridgette Gandhi MD Primary Care Provider [phone] Ramón Bolaños PharmD Unavailable [phone] Reason for Visit * Reason Onset Date Comments Medication Question 06/24/2024 Encounter Details Date Type Department Care Team (Late st Contact Info) Description 06/24/2024 Telephone [facility] 230 [place], [place] [phone] Bridgette Gandhi MD 230 [place], [place] [phone] Medication Question Social History Tobacco Use Types [...] broke. If any questions contact pt at [phone] documented in this encounter Plan of Treatment Upcoming Encounters Date Type Department Care Team (Late st Contact Info) Description 07/10/2025 1:30 PM EST Office Visit [facility] ADULT DENTAL [address] [place] [address] Bubba, Lydia [address] [place] [address] documented as of this encounter Goals Goal [...] as of this encounter Care Teams Business Banking Manager Relationship Specialty Start Date End Date Bridgette Gandhi MD 230 [place] [address] PCP - General Family Medicine 07/01/12 Ramón Bolaños, Bradley [address] [place] [address] Pharmacist Internal Medicine 11/18/23 documented as of this encounter
--- OUTSIDE RECORDS SUMMARY | 2025-06-15 17:59 | XMS_ITS | Encounter Summary ---
Author Organization [employer] Address [address] [facility] [address] [place] [address] Care Team Providers Care Cloth Shrinking Machine Operator Helper Name Role Phone Bridgette Gandhi MD Primary Care Provider [phone] Ramón Bolaños PharmD Unavailable [phone] Encounter Details Date Type Department Care Team (Late st Contact Info) Description 06/26/2023 Abstract [facility] ADULT DENTAL [address] [place], [place] [phone] Amarjit Foster DDS [address] [place], [place] [phone] Social History Tobacco Use Types Packs/Day Years [...] Description 07/10/2025 1:30 PM EST Office Visit [facility] ADULT DENT[facility] [address] [place] [address] Lydia Mac [address] [place] [address] documented as of this encounter Visit Diagnoses Not on filedocumented in this encounter Additional Health Concerns Assessment Noted Time PHQ-9 Depression Total Score: 5 09/11/19 23 10:25 AM EST documented as of this encounter Care Teams Cloth Shrinking Machine Operator Helper Relationship Specialty Start Date End Date Bridgette Gandhi MD [address] [place] [address] PCP - General Family Medicine 07/01/12 Ramón Bolaños, MollyD [address] [place] [address] Pharmacist Internal Medicine 11/18/23 documented as of this encounter
--- OUTSIDE RECORDS SUMMARY | 2025-06-15 17:59 | XMS_ITS | Encounter Summary ---
Author Organization [employer] Address [address] [facility] [address] 7[address] [place] [address] Care Team Providers Care Trade Marker Name Role Phone Bridgette Gandhi MD Primary Care Provider [phone] Ramón Bolaños PharmD Unavailable [phone] Encounter Details Date Type Department Care Team (Late st Contact Info) Description 09/04/2023 Orders Only [facility] MEDICINE 230 [place], [place] [phone] Bridgette Gandhi MD 230 [place], [place] [phone] Chronic pain of both knees (Primary Dx) [...] Description 07/10/2025 1:30 PM EST Office Visit [facility] ADULT DENTAL 230 [place] [address] Bubba, Lydia 230 [place] [address] documented as of this encounter Visit Diagnoses Diagnosis Chronic pain of both knees- Primary documented in this encounter Additional Health Concerns Assessment Noted Time PHQ-9 Depression Total Score: 5 09/11/19 23 10:25 AM EST documented as of this encounter Care Teams Trade Marker Relationship Specialty Start Date End Date Bridgette Gandhi MD [address] [place] [address] PCP - General Family Medicine 07/01/12 Ramón Bolaños, Bradley [address] [place] [address] Pharmacist Internal Medicine 11/18/23 documented as of this encounter
--- OUTSIDE RECORDS SUMMARY | 2025-06-15 17:59 | XMS_ITS | Clinical Summary ---
Author Organization [employer] Address [address] [place] [address] [address] [place] [address] Care Team Providers Care Marine Engine Driver Name Role Phone Bridgette Fagan MD Primary Care Provider [phone] Ramón Bolaños PharmD Unavailable [phone] Allergies Active Allergy Reactions Criticality Noted Date [...] mL 12 3 Active Deep Sea Nasal [place] 0.65 % nasal spray USE 1-2 SPRAYS [...] occurs) 4 Active Lancets (OneTouch Delica Plus [id number]) miscIndications:T ype 2 diabetes mellitus without complications (HCC) TEST [...] crush, chew, or split. 90 tablet 3 5 Active Blood Glucose Monitoring Suppl (Accu-Chek Guide Me) w/Device kit Use to check BS twice daily as directed 1 kit 5 Active glucose blood (Accu-Chek Guide Test) test strip Use to check BS twice daily 100 each 11 5 05/23/20 26 Active Accu-Chek Softclix Lancets lancets Use as instructed 100 each 11 5 05/23/20 26 Active Active Problems Problem Noted Date Diagnosed Date Odontalgia 08/24/2024 Lower urinary tract symptoms (LUTS) 08/04/2024 Bladder stones 08/04/2024 Assessment & Plan (11/04/2024 6:10 AM EDT): - following with [facility] urology, last seen on 09/26/24 - continue adequate hydration - s/p bladder stone removal on 09/13/24 Assessment & Plan (08/25/2024 2:37 PM EST): - following with [facility] urology, last seen on 07/03/24 for cystoscopy - continue adequate hydration - scheduled for bladder stone removal with Dr. Ayala Assessment & Plan (08/11/2024 6:19 AM EST): - following with [facility] urology, last seen on 07/03/24 for cystoscopy -recommended adequate hydration and following plan per urologist Fractured dental episcopalian with loss of materi al 08/01/2024 Caries [...] aorta measuring 4.00 cm - Followed by Plant Manager, monitor with echo every 6-12 months - Continue BP management - Referred to [facility] cardiology per patient's family's request since [facility] moved to [place] Assessment & Plan (11/04/2024 6:07 AM EDT): - 11/26/23 Echo showed mild dilatation of the ascending aorta measuring 4.00 cm - Followed by Plant Manager, monitor with echo every 6-12 months - Continue BP management Assessment & Plan (04/07/2024 11:49 AM EDT): - 11/26/23 Echo showed mild dilatation of the ascending aorta measuring 4.00 cm - Followed by Plant Manager, monitor with echo every 6-12 months - Continue BP management Assessment & Plan (01/04/2024 11:35 AM EDT): - 11/26/23 Echo showed mild dilatation of the ascending aorta measuring 4.00 cm - Followed by Plant Manager, monitor with echo every 6-12 months - Continue BP management Periodic limb movement disorder (PLMD) Assessment & Plan (05/15/2025 7:03 AM EDT): - Noted on his last sleep study - Previously seeing [facility] neurology / sleep medicine clinic. Reconnect care. [...] MRI on 04/14/23: mild chronic ischemic microangiopathy; [id number] generalized diffuse supratentorial and cerebellar vermian parenchymal [...] MRI on 04/14/23: mild chronic ischemic microangiopathy; [id number] generalized diffuse supratentorial and cerebellar vermian parenchymal [...] (11/04/2023 12:40 PM EDT): -[facility] Apr 2021. Recommended to continue conservative management of compression stocking, DASH diet, and leg elevation. Discontinued Diltiazem due to possible side effects. -possible venous ablation -06/02/23 venous study showed b/l venous insufficiency. -recommended to discuss with his can coverer and vascular specialist at [facility] for other treatment options, if appropriate -discontinued amlodipine and hydralazine recently - continue torsemide Assessment & Plan (08/14/2023 11:15 AM EST): -[facility] in Apr 2021. Recommended to continue conservative management of compression stocking, DASH diet, and leg elevation. Discontinued Diltiazem due to possible side effects. -possible venous ablation -06/02/23 venous study showed b/l venous insufficiency. -recommended to discuss with his can coverer and vascular specialist at [facility] for other treatment options, if appropriate Assessment & Plan (05/11/2023 8:29 AM EDT): -[facility] in Apr 2021. Recommended to continue conservative management of compression stocking, DASH diet, and leg elevation. Discontinued Diltiazem due to possible side effects. -possible venous ablation -schedule venous study Assessment & Plan (2022 9:36 AM EST): -[facility] in Apr 2021. Recommended to continue conservative management of compression stocking, DASH diet, and leg elevation. Discontinued Diltiazem due to possible side effects. -possible venous ablation Lumbar radiculopathy 2022 Assessment & Plan (05/15/2025 7:07 AM EDT): - last evaluated by painter set in March 2025 - last injection treatment [...] APAP and diclofenac topical Referred back to [facility] Pain management Discussed with him and patient [...] Tylenol prn - Following with Pain management, [facility] - last injection treatment left L3-L4 transforaminal epidural steroid injection for lumbar radiculopathy and lumbar degenerative disc disease in February 2025 - Previously tried PT; declined further PT, but agreed to see Dr. Hoang - MRI on 09/29/22 showing spinal stenosis with compression of the Exiting right L5 nerve root. 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, [...] to pt's questionable adherence - co-managed with can coverer, polystyrene molding machine tender, professor of law, and pharmacist - 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, [...] to pt's questionable adherence - comanaged with can coverer, polystyrene molding machine tender, professor of law, and pharmacist - 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, [...] to pt's questionable adherence - comanaged with can coverer, polystyrene molding machine tender, professor of law, and pharmacist - 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..] 2024, treated with azithromycin. - Restarted seeing [facility] Pulmonology providers. Seen by Dr. Castillo on [...] the ascending aorta measuring 4.[address] [facility] Pulmonology Dr. Castillo last on 06/20/24, He [...] 2024, treated with azithromycin. - Restarted seeing [facility] Pulmonology providers. Seen by Dr. Castillo on [...] 2024, treated with azithromycin. - Restarted seeing [facility] Pulmonology providers. Seen by Dr. Castillo on [...] 2024, treated with azithromycin. - Restarted seeing [facility] Pulmonology providers. Seen by Dr. Castillo on [...] received prednisone and azithromycin. - Restarted seeing [facility] Pulmonology providers. Seen by Dr. Castillo on [...] received prednisone and azithromycin. - Restarted seeing [facility] Pulmonology providers. Seen by Dr. Castillo on [...] received prednisone and azithromycin. - Restarted seeing [facility] Pulmonology providers. Last seen by Dr. Castillo [...] PLAN FOR COPD (CHRONIC OBSTRUCTIVE PULMONARY DISEASE) ([facility]) WRITTEN ON 08/13/2023 4:56 AM BY BRIDGETTE FAGAN MD Last exacerbation due to CAP in Aug [address] [facility] pulmonology, Dr. Cruz Continue Advair as maintenance. Continue ProAir HFA prn. Most recent PFT in 10/01/2018 -Mild degree of restrictive pulmonary disorder, which may be due to obesity. -No obstructive airway disease (but pt has SAHNON) -Work on smoking cessation -Consider LAMA in [...] PLAN FOR COPD (CHRONIC OBSTRUCTIVE PULMONARY DISEASE) ([facility]) WRITTEN ON 05/11/2023 8:27 AM BY BRIDGETTE FAGAN MD Last exacerbation due to CAP in Aug [address] [facility] pulmonology, Dr. Cruz Continue Advair as maintenance. [...] to CAP in Aug [address] [facility] pulmonology, Dr. Cruz Continue Advair as maintenance. [...] -Restarted auto-PAP in 2019 -Currently followed by [facility] sleep clinic, last appointment in May 2024, auto-PAP 8-20 cm H2O -Continue current setting -Work on lifestyle modifications Assessment & Plan (02/17/2025 9:17 AM EDT): -Last sleep study on 07/22/2018. Dx SHANON -Restarted auto-PAP in 2019 -Currently followed by [facility] sleep clinic, last appointment in May 2023, auto-PAP 8-20 cm H2O -Continue current setting -Work on lifestyle modifications Assessment & Plan (11/01/2024 8:37 AM EDT): -Last sleep study on 07/22/2018. Dx SHANON -Restarted auto-PAP in 2019 -Currently followed by [facility] sleep clinic, last appointment in May 2023, auto-PAP 8-20 cm H2O -Continue current setting -Work on lifestyle modifications Assessment & Plan (08/25/2024 2:39 PM EST): -Last sleep study on 07/22/2018. Dx SHANON -Restarted auto-PAP in 2019 -Currently followed by [facility] sleep clinic, last appointment in May 2023, auto-PAP 8-20 cm H2O -Continue current setting -Work on lifestyle modifications Assessment & Plan (08/04/2024 10:59 PM EST): -Last sleep study on 07/22/2018. Dx SHANON -Restarted auto-PAP in 2019 -Currently followed by [facility] sleep clinic, last appointment in May 2023, auto-PAP 8-20 cm H2O -Continue current setting -Work on lifestyle modifications Assessment & Plan (04/07/2024 11:48 AM EDT): -Last sleep study on 07/22/2018. Dx SHANON -Restarted auto-PAP in 2019 -Currently followed by [facility] sleep clinic, last appointment in May 2023, auto-PAP 8-20 cm H2O -Continue current setting -Work on lifestyle modifications Assessment & Plan (08/13/2023 4:54 AM EST): -Last sleep study on 07/22/2018. Dx SHANON -Restarted auto-PAP in 2019 -Currently followed by [facility] sleep clinic, last appointment in May 2023, auto-PAP 8-20 cm H2O -Continue current setting -Work on lifestyle modifications Assessment & Plan (05/11/2023 8:26 AM EDT): -Last sleep study on 07/22/2018. Dx SHANON -Restarted auto-PAP in 2019 -Currently followed by [facility] sleep clinic, last appt in 12/31/21, auto-PAP 8-20 cm H2O -Pt received new CPAP machine and now scheduled for Mask Fitting d/t pain on his head. -Continue current setting -Work on lifestyle modifications -Will request [facility] sleep medicine clinic to follow up and provide recommendation. Assessment & Plan (01/21/2023 10:57 AM EDT): -Last sleep study on 07/22/2018. Dx SHANON -Restarted auto-PAP in 2019 -Currently followed by [facility] sleep clinic, last appt in 11/13/22 , New CPAP was prescribed. APAP 8-20 cmH2O. -Continue current setting -Work on lifestyle modifications Assessment & Plan (2022 2:08 PM EST): -Last sleep study on 07/22/2018. Dx SHANON -Restarted auto-PAP in 2019 -Currently followed by [facility] sleep clinic, last appt in 12/31/21, auto-PAP 8-20 cm H2O -Pt received new CPAP machine and now scheduled for Mask Fitting d/t pain on his head. -Continue current setting -Work on lifestyle modifications -Will request [facility] sleep medicine clinic to follow up and provide recommendation. Assessment & Plan (09/24/2022 10:57 AM EST): -Last sleep study on 07/22/2018. Dx SHANON -Restarted auto-PAP in 2019 -Currently followed by [facility] sleep clinic, last appt in 12/31/21, auto-PAP [...] check with Lung Cancer screening program in [facility] for next CT scan schedule -Continue working [...] (11/04/2024 11:22 AM EDT): - following with [facility] Urology - s/p TURP and bladder stone removal on 09/13/24 - continue doxazosin and finasteride Assessment & Plan (08/25/2024 2:37 PM EST): - following with [facility] Urology - continue doxazosin and finasteride Assessment & Plan (08/11/2024 6:20 AM EST): - following with [facility] Urology - continue doxazosin and finasteride Assessment [...] Encounters Date Type Department Care Team Description 05/23/2025 Refill [facility] [place] [address] Bridgette Fagan MD 05/03/2025 11:00 AM EDT Office Visit [address] [address] Bridgette Fagan MD Hypertension, unspecified type (Primary [...] Generic External Data 05/03/2025 Travel 05/02/2025 Telephone [facility] [place] [address] Bridgette Fagan MD CHART PREP 04/11/2025 Telephone [facility] [place] [address] Bridgette Fagan MD Records Request 04/06/2025 Orders Only [facility] [place] [address] Bridgette Fagan MD Hypertension, unspecified type (Primary Dx); Venous insufficiency; Ascending aorta dilation (CMS/HCC) 04/06/[address] [address] Bridgette Fagan MD Referral from Last 3 Months Immunizations Immunization Administration [...] Description 07/10/2025 1:30 PM EST Office Visit [facility] ADULT [facility] [address] [place], [place] [phone] Bubba Lydia [address] [place] [address] Health Maintenance Due Date Last Done Comments [...] 05/03/2026 05/03/2025 Depression Screening 05/03/2026 05/03/2025, 05/03/20 25 Tobacco Screening 05/03/2026 05/03/2025 Eye Exam 06/29/2026 [...] complication, without long-term current use of insulin ([facility]) PROPHYLAXIS - ADULT Routine 01/06/2025 1 0:00 AM EDT Dental plaque ALBUMIN, RANDOM URINE W/CREATININE Routine 10/28/2024 9:15 AM EDT Controlled type 2 diabetes mellitus without complication, without long-term current use of insulin ([facility]) LIPID PANEL WITH REFLEX TO DIRECT LDL Routine 10/28/2024 9:15 AM EDT Controlled type 2 diabetes mellitus without complication, without long-term current use of insulin ([facility]) BITEWING - SINGLE RADIOGRAPHIC IMAGE Routine 09/12/2024 [...] PSA,Total (Free>4and<10) 1.14 0.00 - 4.00 ng/mL [facility] Comment:A Free PSA was not [...] Provider LAB BLOOD ORDERAB LES Final Result [facility] [address] [place] [phone] * (ABNORMAL) POCT glycosylated hemoglobin (Hgb [...] 9:15 AM EDT) Triglycerides 125 <150 mg/dL [facility] Comment:Desirable Triglyceri de: less than 150 mg/dLBorderline High Triglyceride 150-199 mg/dLHigh Triglyceride: 200-499 mg/dLVery High Triglyceride: greater than or equal to 5OO mg/dL Cholesterol 126 <200 mg/dL [facility] Comment:Desirable Cholestero l: less than 200 mg/dLBorderline High Cholesterol: 200-239 mg/dLHigh Cholesterol: greater than 239 mg/dL LDL Cholesterol Calculated 58 <100 mg/dL [facility] Comment:Desirable LDL: less than 100 mg/dLNear Optimal/Above Optimal LDL: 110- 129 mg/dLBorderline High LDL: 130-159 mg/dLHigh LDL: 160-189 mg/dLVery High LDL: greater than or equal to 190 mg/dL HDL Cholesterol 43 >40 mg/dL [facility] Comment:Desirable HDL: great er than 40 mg/dL Note: This HDL assay may give artificially low results in patients with liver disease. Blood 10/28/2024 9:15 AM EDT 10/28/2024 11:15 AM EDT us Bridgette Fagan MD LAB BLOOD ORDERABLES Final Resul t [facility] [address] [place] [phone] * (ABNORMAL) Albumin, Random Urine W/Creatinine (10/28/2024 9:15 AM EDT) Creatinine, Urine 247.97 mg/dL [facility] Microalbumin Urine 145.0 mg/L [facility] Microalbum Creatinine Ratio Ur 58.4(H) <30 ug/mg cr [facility] Comment:Albumin/Creatinine R atio Reference Ranges: Normal: < 30 ug/mg creatinine Microalbuminuria: 30 - 300 ug/mg creatinineClinical Albuminuria: > 300 ug/mg creatinine Urine 10/28/2024 9:15 AM EDT 10/28/2024 11:14 AM EDT Bridgette Fagan MD LAB URINE ORDERABLES Final Resul t [facility] [address] [place] [phone] * Hm Diabetes Eye Exam (06/29/2024) Eye Exam Normal Normal 06/29/2024 Historical Provider HEALTH MAINTENANCE Final Result * CT Lung Screening Low dose (12/22/2023 9:58 AM EDT) Anatomical Region Laterality Modality Lung Computed Tomogra phy 12/22/2023 9:58 AM EDT Narrative 12/27/2023 11:40 PM EDT [address] [address] [address] Scan Report Signed Patient: Bharathi Walsh R#: [id number] : 1945 Acct:[id number] Age/Sex: 78 / M ADM Date: 12/22/23 Loc: HO.CT Attending Dr: Tc Castillo MD Ordering Physician: Tc Castillo MD Date of Service: 12/22/23 Procedure(s): CT lung screening Accession Number(s): [id number] cc: Tc Castillo MD; Bridgette Fagan MD [...] for CT CHEST LOW DOSE CANCER SCREENING ([id number]) can be placed. Dictated By: Kun Enciso MD Signed By: <Electronically signed by Kun Enciso MD in OV> 12/27/23 2336 DD/ 0958 TD/TT: Fingerprint Expert: SS Procedure Note Donotuseinterpreter, Image - 12/27/[address] [address] [address] Scan Report Signed Patient: Shalom Walsh R#: [id number] : 6Acct:[id number] Age/Sex: 78 / MADM Date: 12/22/23 Loc: HO.CT Attending Dr: Tc Castillo MD Ordering Physician: Tc Castillo MD Date of Service: 12/22/23 Procedure(s): CT lung screening Accession Number(s): [id number] cc: Tc Castillo MD; Bridgette Fagan MD [...] for CT CHEST LOW DOSE CANCER SCREENING ([id number]) can be placed. Dictated By: Kun Enciso MD Signed By: <Electronically signed by Kun Enciso MD in OV> 12/27/23 2336 DD/ 0958 TD/TT: Fingerprint Expert: ANGELA [facility] External Provider IMG CT PROCEDURES Edited Result - Final from Last 3 Months or Most Recently Relevant to Health Maintenance Insurance [facility] - [facility] Care Teams Marine Engine Driver Relationship Specialty Start Date End Date Bridgette Fagan MD [address] [place] [address] PCP - General Family Medicine 07/01/12 Ramón Bolaños, MollyD [address] [place] [phone] Pharmacist Internal Medicine 11/18/23
--- OUTSIDE RECORDS SUMMARY | 2025-06-15 17:59 | XMS_ITS | Clinical Summary ---
Author Organization [facility] Address [address] [place], [place] [phone] Phone Care Team Providers Care Director Human Services Name Role Phone Unknown, Unknown Primary Care [...] file Medical Devices Not on file Insurance [facility] MEDICARE REPLACEMENT [place] [address] MEDICARE REPLACEMENT MEDICARE REPLACEMENT [place] [id number] [place] [address] [place] [address] MEDICARE REPLACEMENT MEDICARE REPLACEMENT [facility] MEDICARE REPLACEMENT [facility] MEDICARE REPLACEMENT [facility] MEDICARE REPLACEMENT Care Teams Director Human Services Relationship Specialty Start Date End Date Unknown, Unknown, PCP - General 05/23/19 Additional Source Comments The information contained in this document represents components of the legal health record. It is not the complete legal health record.[facility]
--- OUTSIDE RECORDS SUMMARY | 2025-06-15 17:59 | XMS_ITS | Encounter Summary ---
Author Organization [employer] Address [address] [place] [address] Care Team Providers Care Manifold Operator Name Role Phone Bridgette Gandhi MD Primary Care Provider [phone] Ramón Bolaños PharmD Unavailable [phone] Encounter Details Date Type Department Care Team (Late st Contact Info) Description 09/22/2023 Orders Only [facility] [address] [place], [place] [phone] Bridgette Gandhi MD [address] [place], [place] [phone] Chronic obstructive pulmonary disease, unspecified COPD type [...] 1:30 PM EST Office Visit [facility] ADULT DENTAL [address] [place] [address] Bubba, Lydia [address] [place] [address] documented as of this encounter Visit Diagnoses Diagnosis Chronic obstructive pulmonary disease, unspecified COPD type (CMS/HCC) (HCC)- Primary Obstructive sleep apnea syndrome Obstructive sleep apnea (adult) (pediatric) documented in this encounter Additional Health Concerns Assessment Noted Time PHQ-9 Depression Total Score: 5 09/11/19 23 10:25 AM EST documented as of this encounter Care Teams Manifold Operator Relationship Specialty Start Date End Date Bridgette Gandhi MD [address] [place] [address] PCP - General Family Medicine 07/01/12 Ramón Bolaños, Bradley [address] [place] [phone] Pharmacist Internal Medicine 11/18/23 documented as of this encounter
--- OUTSIDE RECORDS SUMMARY | 2025-06-15 17:59 | XMS_ITS | Encounter Summary ---
Author Organization [employer] Address [address] [facility] 7[address] [place] [address] Care Team Providers Care Manufacturing Recruiter Name Role Phone Bridgette Gandhi MD Primary Care Provider [phone] Ramón Bolaños PharmD Unavailable [phone] Encounter Details Date Type Department Care Team (Late st Contact Info) Description 06/24/2024 Orders Only [facility] MED[facility] [address] [place], [place] [phone] Bridgette Gandhi MD [address] [place], [place] [phone] Social History Tobacco Use Types Packs/Day Years [...] 1:30 PM EST Office Visit [facility] ADULT DENTAL [address] [place] [address] Bubba, Lydia [address] [place] [address] documented as of this encounter Goals Goal [...] documented as of this encounter Care Teams Manufacturing Recruiter Relationship Specialty Start Date End Date Bridgette Gandhi MD [address] [place] [address] PCP - General Family Medicine 07/01/12 Ramón Bolaños, PharmD [address] [place] [phone] Pharmacist Internal Medicine 11/18/23 documented as of this encounter
--- OUTSIDE RECORDS SUMMARY | 2025-06-15 17:59 | XMS_ITS ---
Author Name [facility]ira [employer] Address [address] [place] [address] Phone [phone] [facility] Care Team Providers Care Counter Pocket Trimmer Name Role Phone Qi Waddell Unavailable [phone] ROSENEENA VELEZO Unavailable [phone] Concepción Mcrae Unavailable [phone] Unavailable Unavailable Unavailable Reason for Referral Not [...] 2022-03-10 No Data Available Deep Sea Nasal Geff 0.65 % Solution USE 1-2 SPRAYS IN [...] disorder), recurrent episode, mild Active 2022-09-30 N/A StableManas leone SI/HI Discussed coping mechanisms, provided information [...] CB 24/7 as needed. Morbid (severe) obesity with Body mass index [BMI] 40.0-44.9, adult Active 2022-09-30 N/A StableBMI: 41.0 0Discussed diet, exercise, and lifestyle modifications to assist [...] Follow up with PCP as scheduled.Contact CB 09/03 as needed.05/30/2024 patient states he is controlled [...] persistent NOLEN< blurry vision)07/25/2024:Follows up with PCP, Fruit Sprayer, last visit 2 weeks ago.Taking: amLODIPine Besylate [...] low Sodium diet. Contact CB 24 as needed. COPD (chronic obstructive pulmonary disease) [...] ophthalmology every 3-6 months 07/25/2024:Follows up with Record Center Coordinator.Continues using: Latanoprost drops.Denies any acute complaint. Chronic [...] likely not be covered by health plan. 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 Advised to f/u with recliner request during 07/27/24 f/u visit with PCP, as may need PT/OT eval. Loose stools Active 2025-05-18 N/A StableReport s intermittent loose stoolDietary and lifestyle interventions [facility]LA[facility] medications - Imodium if diarrhea developsContact CB if having change in BM and continue with PCP. Encounters Encounters Type Facility Date of Service Diagnosis/Co mplaint New patient,40-59min; chronic exacerbation, 2 stable chronic or 1 acute illness add add modifier 95 for video (do not use for phone, instead use 38505-78) [facility]20[place] Type 2 diabetes mellitus wit h diabetic neuropathy, unspecifiedHypertensive heart disease with heart failureHeart failure, unspecifiedMorbid (severe) obesity due to excess caloriesMajor depressive disorder, recurrent, mildChronic obstructive pulmonary disease, unspecifiedOther amnesiaUnspecified glaucomaBody mass index (bmi) 39.0-39.9, adult New patient,40-59min; chronic exacerbation, 2 stable chronic or 1 acute illness add add modifier 95 for video (do not use for phone, instead use 55658-35) [facility] New patient,40-59min; chronic exacerbation, 2 stable chronic or 1 acute illness add add modifier 95 for video (do not use for phone, instead use 94846-63) [facility] New patient,40-59min; chronic exacerbation, 2 stable chronic or 1 acute illness add add modifier 95 for video (do not use for phone, instead use 22377-92) [facility] [place]20[place] New patient,40-59min; chronic exacerbation, 2 stable chronic or 1 acute illness add add modifier 95 for video (do not use for phone, instead use 77093-30) [facility] [place]20[place] New patient,40-59min; chronic exacerbation, 2 stable chronic or 1 acute illness add add modifier 95 for video (do not use for phone, instead use 54697-56) [facility] [place] 10[place]/20[place] New patient,40-59min; chronic exacerbation, 2 stable chronic or 1 acute illness add add modifier 95 for video (do not use for phone, instead use 83346-87) [facility] [place] 10[place]/20[place] New patient,40-59min; chronic exacerbation, 2 stable chronic or 1 acute illness add add modifier 95 for video (do not use for phone, instead use 77006-05) [facility] [place] 10[place]20[place] New patient,40-59min; chronic exacerbation, 2 stable chronic or 1 acute illness add add modifier 95 for video (do not use for phone, instead use 69067-07) [facility] [place]2022 No Data Available [facility] [place] 10[place]/2022 Type 2 diabetes mellitus wit h diabetic neuropathy, unspecifiedMorbid (severe) obesity due to excess caloriesMajor depressive disorder, recurrent, mildHeart failure, unspecifiedHypertensive heart disease with heart failureChronic obstructive pulmonary disease, unspecifiedOther amnesiaUnspecified glaucoma No Data Available [facility] [place] 10[place]/2022 No Data Available [facility] [place] 10[place]/2022 Estab. patient 30-39min; chronic exacerbation, 2 stable chronic or 1 acute illness add add modifier 95 for video, (do not use for phone, instead use 63169-28) [facility] [place]2023 Type 2 diabetes mellitus wit h [...] (do not use for phone, instead use 51404-25) [facility] [place]/2023 Estab. patient 30-39min; chronic exacerbation, 2 stable chronic or 1 acute illness add add modifier 95 for video, (do not use for phone, instead use 41386-86) [facility] [place] 10[place]/2023 Estab. patient 30-39min; chronic exacerbation, 2 stable chronic or 1 acute illness add add modifier 95 for video, (do not use for phone, instead use 22914-22) [facility] [place] 10[place]/2023 Estab. patient 30-39min; chronic exacerbation, 2 stable chronic or 1 acute illness add add modifier 95 for video, (do not use for phone, instead use 37122-72) [facility] [place] 10[place]20[place] Estab. patient 30-39min; chronic exacerbation, 2 stable chronic or 1 acute illness add add modifier 95 for video, (do not use for phone, instead use 47338-42) [facility] Estab. patient 30-39min; chronic exacerbation, 2 stable chronic or 1 acute illness add add modifier 95 for video, (do not use for phone, instead use 81200-51) [facility] [place] 10[place]/2023 Estab. patient 30-39min; chronic exacerbation, 2 stable chronic or 1 acute illness add add modifier 95 for video, (do not use for phone, instead use 07232-64) [facility] [place] 10[place]/2023 Estab. patient 30-39min; chronic exacerbation, 2 stable chronic or 1 acute illness add add modifier 95 for video, (do not use for phone, instead use 76578-46) [facility] [place] Estab. patient 30-39min; chronic exacerbation, 2 stable chronic or 1 acute illness add add modifier 95 for video, (do not use for phone, instead use 63562-20) [facility] [place]2023 Estab. patient 20-29min; 1 stable chronic or 2 minor; add add modifier 95 for video, modifier 93 for phone [facility] 05[place]/2024 Other chronic painOther prob lems related to medical facilities and other health care Estab. patient 20-29min; 1 stable chronic or 2 minor; add add modifier 95 for video, modifier 93 for phone [facility]/20[place] Estab. patient 20-29min; 1 stable chronic or 2 minor; add add modifier 95 for video, modifier 93 for phone [facility] [place] 05/30/20[place] Estab. patient 20-29min; 1 stable chronic or 2 minor; add add modifier 95 for video, modifier 93 for phone [facility] [place] 05/30/20[place] Estab. patient 20-29min; 1 stable chronic or 2 minor; add add modifier 95 for video, modifier 93 for phone [facility] [place] 05/30/2024 Estab. patient 20-29min; 1 stable chronic or 2 minor; add add modifier 95 for video, modifier 93 for phone [facility] [place] 05/30/2024 Estab. patient 20-29min; 1 stable chronic or 2 minor; add add modifier 95 for video, modifier 93 for phone [facility] [place] 05/30/2024 No Data Available [facility] [place] 07/25/2024 Hypertensive heart disease w ith heart failureHeart failure, unspecifiedSecondary hyperaldosteronismChronic obstructive pulmonary disease, unspecifiedUnspecified glaucomaOther problems related to medical facilities and other health careOther chronic pain No Data Available [facility] [place] 07/25/2024 No Data Available [facility] [place] 07/25/2024 Estab. patient 10-29min; 1 minor problem; add add modifier 95 for video, modifier 93 for phone [facility] [place] 05/18/2025 Type 2 diabetes mellitus wit h diabetic neuropathy, unspecifiedType 2 diabetes mellitus with other specified complicationHyperlipidemia, unspecifiedMorbid (severe) obesity due to excess caloriesMajor depressive disorder, recurrent, mildBody mass index (BMI) 40.0-44.9, adultHypertensive heart disease with heart failureHeart failure, unspecifiedSecondary hyperaldosteronismChronic obstructive pulmonary disease, unspecifiedOther amnesiaAlzheimer's disease with early onsetDementia in other diseases classified elsewhere, unspecified severity, with mood disturbanceUnspecified glaucomaOther chronic painEnlarged prostate without lower urinary tract symptomsOther fecal abnormalitiesOther problems related to medical facilities and other health careType 2 diabetes mellitus with other diabetic ophthalmic complicationNicotine dependence, unspecified, uncomplicatedLong term (current) use of oral hypoglycemic drugs Estab. patient 10-29min; 1 minor problem; add add modifier 95 for video, modifier 93 for phone [facility]/18[place] Estab. patient 10-29min; 1 minor problem; add add modifier 95 for video, modifier 93 for phone [facility] [place]18[place]20[place] Estab. patient 10-29min; 1 minor problem; add add modifier 95 for video, modifier 93 for phone [facility] [place] 05/18/20[place] Estab. patient 10-29min; 1 minor problem; add add modifier 95 for video, modifier 93 for phone [facility] [place] 05/18/20[place] Estab. patient 10-29min; 1 minor problem; add add modifier 95 for video, modifier 93 for phone [facility] [place] 05/18/20[place] Estab. patient 10-29min; 1 minor problem; add add modifier 95 for video, modifier 93 for phone [facility] [place] 05/18/20[place] Estab. patient 10-29min; 1 minor problem; add add modifier 95 for video, modifier 93 for phone [facility] [place] 05/18/2025 Estab. patient 10-29min; 1 minor problem; add add modifier 95 for video, modifier 93 for phone [facility] [place] 05/18/2025 Estab. patient 10-29min; 1 minor problem; add add modifier 95 for video, modifier 93 for phone [facility] [place] 05/18/2025 Vital Signs Date of Collection Vitals [...] Current Smoking Status Current every day smoker 2025-06-15 Sex Male History of Procedures Procedures Service Procedure code Service date Servicing provider Phone# New patient,40-59min; chronic exacerbation, 2 stable chronic or 1 acute illness add add modifier 95 for video (do not use for phone, instead use 40725-24) [id number] 2022-10-28 No Data Available No Data Availa [...] No Data Nancy ilable No Data Available [id number] 2022-10-29 No Data Available No Data Available [...] (do not use for phone, instead use 17835-21) [id number] 2023-10-27 No Data Available No Data Availa [...] 95 for video, modifier 93 for phone 27738 2024-05-30 No Data Available No Data Availa [...] le No Data Available No Data Available 2024-07-25 No Data Available No Data Available Medication List Documented (1159F) 1159F 2024-07-25 No Data Available No Data Nancy ilable Pain Assessment - Pain Documented on a Pain Scale (1125F) 1125F 2024-07-25 No Data Available No Data Nancy ilable Estab. patient 10-29min; 1 minor problem; add add modifier 95 for video, modifier 93 for phone 54521 2025-05-18 No Data Available No Data Availa [...] Data Availa ble BMI obtained (3008F) 3008F 2025-05-18 No Data Availab le No Data Available Pain Assessment - Pain Documented on a Pain Scale (1125F) 1125F 2025-05-18 No Data Available No Data Nancy ilable SBP < 130 (3074F) 3074F 2025-05-18 No Data Available No Data Available DBP <80 (3078F) 3078F 2025-05-18 No Data Available No Data Available Functional Status Functional Category Effective Dates Dressing: [...] feel unsteady on your feet? No 20 10-06-02 Do you worry about falling? No 2 [...] persistent NOLEN< blurry vision)10/27/2023:Follows up with PCP, Fruit Sprayer, last visit 2 weeks ago.BP: 119/68. Reported [...] ophthalmology every 3-6 months 10/27/2023:Follows up with Record Center Coordinator.Continues using: Latanoprost drops.Denies any acute complaint.Reports chronic [...] (no modifier 95)Pain Assessment - Pain Documented (1411F)Continue to see PCP. Follow-up with [facility] as needed for any acute or disease education needs that may arise 09/03.StableLisinopril, Furosemide Avg BP: 120s/60sContinue taking medications as prescribed, continue monitoring BP, discussed low salt diet, exercise as tolerable, and lifestyle interventions. Contact us if developing emergent HTN s/sx (eg. palpitations, persistent NOLEN< blurry vision)07/25/2024:Follows up with PCP, Fruit Sprayer, last visit 2 weeks ago.Taking: amLODIPine Besylate [...] ophthalmology every 3-6 months 07/25/2024:Follows up with Record Center Coordinator.Continues using: Latanoprost drops.Denies any acute complaint.PAIN CONTINGENCY [...] likely not be covered by health plan. 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 Advised to f/u with recliner request during [...] Follow up with PCP as scheduled.Contact CB 09/03 as needed.05/30/2024 patient states he is controlledStableBMI: [...] persistent NOLEN< blurry vision)07/25/2024:Follows up with PCP, Fruit Sprayer, last visit 2 weeks ago.Taking: amLODIPine Besylate [...] ophthalmology every 3-6 months 07/25/2024:Follows up with Record Center Coordinator.Continues using: Latanoprost drops.Denies any acute complaint.StableReports chronic [...] likely not be covered by health plan. 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 Advised to f/u with recliner request during [...] questions or concerns. [facility] how [facility] or [facility]. CB 24/7 phone [...] PCP. Health Concerns Date Concern 2025-05-18 Patient/Guardian mayur clarke to visit via telehealth. Today, patient has [...] okDo you have a Durable Power of Hplc Chemist for Healthcare, or Healthcare Proxy Or Guardianship? Yes, preferred proxy but not named POAIf so, Who? daughter, Senait Hernandez you have a written Advance Directive? Has no formal [id number] : AD or surrogate was documented in [...]
--- OUTSIDE RECORDS SUMMARY | 2025-06-15 17:59 | XMS_ITS | Encounter Summary ---
Author Organization [employer] Address [address] [facility] [address] [place] [address] Care Team Providers Care River Tester Name Role Phone Bridgette Gandhi MD Primary Care Provider Ramón Bolaños PharmD Unavailable [phone] Reason for Visit * Reason Comments Med Refill Encounter Details Date Type Department Care Team (Late st Contact Info) Description 06/07/2023 Refill [facility] WALK-IN CENTER [address] [place], [place] [phone] Bridgette Gandhi MD [address] [place], [place] [phone] Social History Tobacco Use Types Packs/Day Years [...] [facility] ADULT DENTAL [address] [place] [address] Bubba, Lydia [address] [place] [address] documented as of this encounter Visit Diagnoses Not on filedocumented in this encounter Additional Health Concerns Assessment Noted Time PHQ-9 Depression Total Score: 5 09/11/19 23 10:25 AM EST documented as of this encounter Care Teams River Tester Relationship Specialty Start Date End Date Bridgette Gandhi MD [address] [place] [address] PCP - General Family Medicine 07/01/12 Ramón Bolaoñs, Bradley [address] [place] [address] Pharmacist Internal Medicine 11/18/23 documented as of this encounter
--- OUTSIDE RECORDS SUMMARY | 2025-06-15 17:59 | XMS_ITS | Encounter Summary ---
Author Organization [employer] Address [address] [facility] 7t [place] [address] Care Team Providers Care Foundry Metallurgist Name Role Phone Bridgette Gandhi MD Primary Care Provider [phone] Ramón Bolaños PharmD Unavailable [phone] Reason for Visit * Reason Comments Med Refill Encounter Details Date Type Department Care Team (Late st Contact Info) Description 03/10/2024 Refill [facility] MEDICINE [address] [place], [place] [phone] Bridgette Gandhi MD [address] [place], [place] [phone] Social History Tobacco Use Types Packs/Day Years [...] 07/10/2025 1:30 PM EST Office Visit [facility] ADULT DENTAL [address] [place] [address] Greg Macaris [address] [place] [address] documented as of this encounter Goals Goal [...] documented as of this encounter Care Teams Foundry Metallurgist Relationship Specialty Start Date End Date Bridgette Gandhi MD [address] [place] [address] PCP - General Family Medicine 07/01/12 Ramón Bolaños, MollyD [address] [place] [address] Pharmacist Internal Medicine 11/18/23 documented as of this encounter
--- OUTSIDE RECORDS SUMMARY | 2025-06-15 17:59 | XMS_ITS | Encounter Summary ---
Author Organization [employer] Address [address] [place] [address] 7t [place] [address] Care Team Providers Care Community Health Educator Name Role Phone Bridgette Gandhi MD Primary Care Provider [phone] Ramón Bolaños PharmD Unavailable [phone] Reason for Referral * Consultation (Routine) - Authorized Specialty Diagnoses / Procedures Referred By Contac t Referred To Contact Cardiology Diagnoses Hypertension, unspecified type Venous insufficiency Ascending aorta dilation (CMS/HCC) Bridgette Gandhi MD [address] [place] [address] Phone: tel: fax: [facility] Referral ID Status Reason Start Date Expiration Date Visits Requested Visits Authorized [id number] Authorized Specialty Services Required 04/06/2025 04/06/2026 1 1 Encounter Details Date Type Department Care Team (Late st Contact Info) Description 04/06/2025 Orders Only [facility] MEDICINE [address] [place], [place] [phone] Bridgette Gandhi MD [address] [place], [place] [phone] Hypertension, unspecified type (Primary Dx); Venous insufficiency; [...] [facility] ADULT DENTAL [address] [place] [address] Lydia Mac [address] [place] [address] Scheduled Referrals Name Type Priority Associated Diagnoses [...] as of this encounter Care Teams Community Health Educator Relationship Specialty Start Date End Date Bridgette Gandhi MD [address] [place] [address] PCP - General Family Medicine 07/01/12 Ramón Bolaños PharmD [address] [place] [address] Pharmacist Internal Medicine 11/18/23 documented as of this encounter
--- OUTSIDE RECORDS SUMMARY | 2025-06-15 17:59 | XMS_ITS | Encounter Summary ---
Author Organization [employer] Address [address] [facility] [address] [place] [address] Care Team Providers Care Jackspooler Name Role Phone Bridgette Gandhi MD Primary Care Provider [phone] Ramón Bolaños PharmD Unavailable [phone] Encounter Details Date Type Department Care Team (Late st Contact Info) Description 08/22/[address] [facility] MEDICINE [address] [place] [address] [place] Larson [place] Social History Tobacco Use [...] 07/10/2025 1:30 PM EST Office Visit [facility] ADULT DENTAL [address] [place] [address] Bubba, Lydia [address] [place] [address] documented as of this encounter Goals Goal [...] documented as of this encounter Care Teams Jackspooler Relationship Specialty Start Date End Date Bridgette Gandhi MD [address] [place] [address] PCP - General Family Medicine 07/01/12 Ramón Bolaños, Bradley [address] [place] [address] Pharmacist Internal Medicine 11/18/23 documented as of this encounter
--- OUTSIDE RECORDS SUMMARY | 2025-06-15 17:59 | XMS_ITS | Clinical Summary ---
Author Organization [facility] Address [address] [place] [address] [address] BYRD MAGDALENA REINA [phone] Phone Care Team Providers Care Clip Loading Machine Adjuster Name Role Phone Bridgette Gandhi MD Primary Care Provider [phone] Allergies Active Allergy Reactions Criticality Noted Date [...] Visit [facility] [address] [place] [phone] Gómez Colunga MD [address] [facility] [facility] [address] [place] [address] Health Maintenance Due Date Last [...] patient's age to complete this topic Insurance [facility] ([id number]) [facility] ([id number]) Care Teams Clip Loading Machine Adjuster Relationship Specialty Start Date End Date Bridgette Gandhi MD [address] [place] [address] PCP - General 08/27/20
--- OUTSIDE RECORDS SUMMARY | 2025-06-15 17:59 | XMS_ITS | Encounter Summary ---
Author Organization [employer] Address [address] [facility] 7t [place] [address] Care Team Providers Care Jackscrew Man Name Role Phone Bridgette Gandhi MD Primary Care Provider Ramón Bolaños PharmD Unavailable [phone] Encounter Details Date Type Department Care Team (Late Contact Info) Description 04/30/2023 Abstract [facility] MEDICINE [address] [place] [address] Bridgette Gandhi MD [address] [place], [place] [phone] Social History Tobacco Use Types Packs/Day Years [...] Description 07/10/2025 1:30 PM EST Office Visit [facility] ADULT DENTAL [address] [place] [address] Lydia Mac [address] [place] [address] documented as of this encounter Procedures Procedure [...] documented as of this encounter Care Teams Jackscrew Man Relationship Specialty Start Date End Date Bridgette aGndhi MD [address] [place] [address] PCP - General Family Medicine 07/01/12 Ramón Bolaños, MollyD [address] [place] [address] Pharmacist Internal Medicine 11/18/23 documented as of this encounter
--- OUTSIDE RECORDS SUMMARY | 2025-06-15 17:59 | XMS_ITS | Encounter Summary ---
Author Organization [employer] Address [address] [facility] 7t [place] [address] Care Team Providers Care Drafter Patent Name Role Phone Bridgette Gandhi MD Primary Care Provider [phone] Ramón Bolaños PharmD Unavailable Reason for Visit * Reason Onset Date Comments Referral 08/27/2023 Encounter Details Date Type Department Care Team (Late st Contact Info) Description 08/27/2023 Telephone [facility] MEDICINE [address] [place], [place] [phone] Bridgette Gandhi MD [address] [place], [place] [phone] Referral Social History Tobacco Use Types Packs/Day [...] 08/27/2023 1:13 PM EST TC from pt's daughter/RETAIL BUSINESS ANALYST requesting a renewal of Referral Date of original referral: 09/11/23 Location: [facility] (unsure of exact location) Date: 09/03/23 Time: 3:15 Fax: N/A Specialty: Orthopedic documented in this encounter Plan of Treatment Upcoming Encounters Date Type Department Care Team (Late st Contact Info) Description 07/10/2025 1:30 PM EST Office Visit [facility] ADULT DENTAL [address] [place] [address] Lydia Mac [address] [place] [address] documented as of this encounter Visit Diagnoses Not on filedocumented in this encounter Additional Health Concerns Assessment Noted Time PHQ-9 Depression Total Score: 5 09/11/19 23 10:25 AM EST documented as of this encounter Care Teams Drafter Patent Relationship Specialty Start Date End Date Bridgette Gandhi MD [address] [place], [place] [phone] PCP - General Family Medicine 07/01/12 Ramón Bolaños, MollyD [address] [place] [address] [phone] Pharmacist Internal Medicine 11/18/23 documented as of this encounter
--- OUTSIDE RECORDS SUMMARY | 2025-06-15 17:59 | XMS_ITS | Encounter Summary ---
Author Organization [facility] Address [address] [facility] 7t [place] [address] Care Team Providers Care Measurement Operator Name Role Phone Bridgette Gandhi MD Primary Care Provider Ramón Bolaños PharmD Unavailable Encounter Details Date Type Department Care Team (Late st Contact Info) Description 07/31/2022 Abstract [facility] ADULT DENTAL [address] [place] [address] Lydia Mac [address] [place] [address] Social History Tobacco Use Types Packs/Day Years [...] Description 07/10/2025 1:30 PM EST Office Visit [facility] ADULT DENTAL [address] [place] [address] Lydia Mac [address] [place] [address] documented as of this encounter Visit Diagnoses Not on filedocumented in this encounter Care Teams Measurement Operator Relationship Specialty Start Date End Date Bridgette Gandhi MD [address] [place] [address] PCP - General Family Medicine 07/01/12 Ramón Bolaños, MollyD [address] [place] [address] Pharmacist Internal Medicine 11/18/23 documented as of this encounter
--- OUTSIDE RECORDS SUMMARY | 2025-06-15 17:59 | XMS_ITS | Encounter Summary ---
Author Organization [employer] Address 75 [facility] 7t [place] [address] Care Team Providers Care Green Chain Operator Name Role Phone rBidgette Gandhi MD Primary Care Provider [phone] Ramón Bolaños PharmD Unavailable [phone] Reason for Visit * Reason Onset Date Comments ER Follow-up 05/26/2024 Nurse Triage 05/26/2024 Encounter Details Date Type Department Care Team (Late st Contact Info) Description 05/26/2024 Telephone [facility] MEDICINE [address] [place], [place] [phone] Bridgette Gandhi MD [address] [place], [place] [phone] ER Follow-up; Nurse Triage Social History Tobacco [...] Please assist with obtaining discharge summary for [facility] ED visit on 05/25/24 for provider review prior to upcoming appointment. Future Appointments Date Time Provider Department Center 05/27/2024 8:45 AM Jeremias Gong MD [facility] 01/11/2025 10:00 AM Susy Dixon PharmD [facility] * Telephone Encounter - Danii Hope [...] Center 05/27/2024 8:45 AM Jeremias Gong MD [facility] 01/11/2025 10:00 AM Susy Dixon PharmD MEDICINE [facility] Insurance verified as active per Real [...] ED visit on : Date: 05/25/24 Hospital: [facility] Seen for: Severe hip and [...] 1:30 PM EST Office Visit [facility] ADULT DENTAL [address] [place] [address] Lydia Mac [address] [place] [address] documented as of this encounter Goals Goal [...] of this encounter Care Teams Green Chain Operator Relationship Specialty Start Date End Date Bridgette Gandhi MD [address] [place] [address] PCP - General Family Medicine 07/01/12 Ramón Bolaños, PharmD [address] [place] [address] Pharmacist Internal Medicine 11/18/23 documented as of this encounter
--- OUTSIDE RECORDS SUMMARY | 2025-06-15 17:59 | XMS_ITS | Encounter Summary ---
Demographics Address [address] [facility] [address] [place] [address] Mobile Phone Home Phone Work Phone Preferred Language es Marital Status Holiness Affiliation Unknown Race Other Race Ethnic Group Unknown Author Organization [employer] Address [address] [facility] 7t [place] [address] Care Team Providers Care Traveling Electrician Name Role Phone Bridgette Gandhi MD Primary Care Provider [phone] Ramón Bolaños PharmD Unavailable [phone] Reason for Referral * Consultation (Routine) - Closed Specialty Diagnoses / Procedures Referred By Jj t Referred To Contact Orthopaedic Surgery Diagnoses Primary osteoarthritis of both hips Primary osteoarthritis of both knees Bridgette Gandhi MD [address] [place] [address] Phone: tel: fax: [facility] [address] [place] [address] Drive [address] [place], [place] Phone: tel: fax: Referral ID Status Reason Start Date Expiration Date V isits Requested Visits Authorized [id number] Closed Specialty Services Required 02/23/2024 02/22/2025 1 1 Encounter Details Date Type Department Care Team (Late st Contact Info) Description 02/23/2024 Orders Only [facility] MEDICINE [address] [place] [address] Bridgette Gandhi MD [address] [place], [place] [phone] Primary osteoarthritis of both hips (Primary Dx); [...] Description 07/10/2025 1:30 PM EST Office Visit [facility] ADULT DENTAL [address] [place] [address] Lydia Mac [address] [place] [address] Scheduled Referrals Name Type Priority Associated Diagnoses [...] documented as of this encounter Care Teams Traveling Electrician Relationship Specialty Start Date End Date Bridgette Gandhi MD [address] [place] [address] PCP - General Family Medicine 07/01/12 Ramón Bolaños PharmD [address] [place] [address] Pharmacist Internal Medicine 11/18/23 documented as of this encounter
--- OUTSIDE RECORDS SUMMARY | 2025-06-15 17:59 | XMS_ITS | Encounter Summary ---
Author Organization [email or web address] Address [address] [place] [address] 7t [place] [address] Care Team Providers Care Business Reporting Developer Name Role Phone Bridgette Gandhi MD Primary Care Provider Ramón Bolaños PharmD Unavailable Encounter Details Date Type Department Care Team (Late st Contact Info) Description 07/30/2022 Abstract [facility] ADULT DENTAL [address] [place] [address] Lydia Mac [address] [place], [place] [phone] Social History Tobacco Use Types Packs/Day Years [...] Description 07/10/2025 1:30 PM EST Office Visit [facility] ADULT DENTAL [address] [place] [address] Lydia Mac [address] [place] [address] documented as of this encounter Procedures Procedure [...] on filedocumented in this encounter Care Teams Business Reporting Developer Relationship Specialty Start Date End Date Bridgette Gandhi MD 230 [place] [address] PCP - General Family Medicine 07/01/12 Ramón Bolaños PharmD [address] [place] [address] Pharmacist Internal Medicine 11/18/23 documented as of this encounter
--- OUTSIDE RECORDS SUMMARY | 2025-06-15 17:59 | XMS_ITS | Encounter Summary ---
Author Organization [facility] Address [address] [facility] [address] [place] [address] Phone Care Team Providers Care Cigar Packer And Grader Name Role Phone Unknown, Unknown Primary Care Provider Terrence montano Encounter Details Date Type Department Care Team (Late st Contact Info) Description 05/30/2019 Ancillary Orders [facility] [address] [place] [address] [place] [address] Sylvester Hdez, DO [address] [place] [address] Bradycardia Social History Tobacco Use Types Packs/Day [...] dysrhythmias documented in this encounter Care Teams Cigar Packer And Grader Relationship Specialty Start Date End Date Unknown, Unknown, PCP - General 05/23/19 documented as of this encounter Additional Source Comments The information contained in this document represents components of the legal health record. It is not the complete legal health record.[facility]
--- OUTSIDE RECORDS SUMMARY | 2025-06-15 17:59 | XMS_ITS | Encounter Summary ---
Author Organization [employer] [facility] Address [address] [facility] 7t [place] [address] Care Team Providers Care Bridal Consultant Name Role Phone Bridgette Gandhi MD Primary Care Provider Ramón Bolaños PharmD Unavailable [phone] Encounter Details Date Type Department Care Team (Latest Contact Info) Description 06/20/2022 Abstract [facility] CONVERSIONS Dental, Provider, DDS Social History Tobacco [...] 07/10/2025 1:30 PM EST Office Visit [facility] ADULT DENTAL [address] [place] [address] Bubba, Lydia [address] [place] [address] documented as of this encounter Visit Diagnoses Not on filedocumented in this encounter Care Teams Bridal Consultant Relationship Specialty Start Date End Date Bridgette Gandhi MD [address] [place], [place] [phone] PCP - General Family Medicine 07/01/12 Ramón Bolaños, PharmD [address] [place] [address] Pharmacist Internal Medicine 11/18/23 documented as of this encounter
--- OUTSIDE RECORDS SUMMARY | 2025-06-15 17:59 | XMS_ITS | Encounter Summary ---
Author Organization [employer] Address [address] [facility] [address] 7t [place] [address] Care Team Providers Care Vp Clinical Research Name Role Phone Bridgette Gandhi MD Primary Care Provider [phone] Ramón Bolaños PharmD Unavailable [phone] Encounter Details Date Type Department Care Team (Late st Contact Info) Description 08/28/2023 Orders Only [facility] [address] [place], [place] [phone] Bridgette Gandhi MD [address] [place], [place] [phone] Social History Tobacco Use Types Packs/Day Years [...] 1:30 PM EST Office Visit [facility] ADULT DENTAL [address] [place] [address] Lydia Mac [address] [place] [address] documented as of this encounter Visit Diagnoses Not on filedocumented in this encounter Additional Health Concerns Assessment Noted Time PHQ-9 Depression Total Score: 5 09/11/19 23 10:25 AM EST documented as of this encounter Care Teams Vp Clinical Research Relationship Specialty Start Date End Date Bridgette Gandhi MD [address] [place] [address] PCP - General Family Medicine 07/01/12 Ramón Bolaños, Bradley [address] [place] [address] Pharmacist Internal Medicine 11/18/23 documented as of this encounter
== END 2025-06-15 16:25 | disposition home or self-care (01) ==
LOC: HO.HUSH 15:24
PROVIDERS: PCP Family Medicine; Visit Provider Urology
DX: Z13.9 Encounter for screening, unspecified (principal)

== ENCOUNTER → 2025-06-15 15:23 | Outpatient (BNVA) | payer OTHER, SELFPAY | PROVIDERS: PCP Family Medicine; Visit Provider Urology | DX: N40.1 Benign prostatic hyperplasia with lower urinary tract symptoms (principal); Z12.5 Encounter for screening for malignant neoplasm of prostate; Z13.9 Encounter for screening, unspecified | CPT/HCPCS: 51798; 81003; 99212 ==

== ENCOUNTER 2025-06-16 09:37 | Outpatient (AMB) | payer OTHER, SELFPAY ==
[2025-06-16 10:07] VITALS: BP 133/64; PULSE 80; RESP 16; O2SAT 94; BMI 39.1
--- NOTE | 2025-06-16 10:07 | MHC.OFFVIS ---
Vital Signs 06/16/25 10:07 Height 5 ft 6 in Weight 242 lb BMI 39.1 BP 133/64 Blood Pressure Location Lt brachial Position Sitting Respiration 16 Pulse 80 Pulse Source Pulse Oximeter Pulse Oximetry (%) 94 Oxygen Delivery Method Room Air Intake Visit Reasons: S/P Left Hip Intraarticular Injection Manager Food Safety Required: Yes Manager Food Safety Name: Rex [id number] Allergies Penicillins Allergy (Intermediate, Verified 06/16/25 11:00) RASH Carbapenems Allergy (Unknown, Verified 06/16/25 11:00) Unknown Cephalosporins Allergy (Unknown, Verified 06/16/25 11:00) Unknown enviormental Allergy (Severe, Uncoded 06/16/25 11:00) coughing and sneezing HPI Comments Details: Visit completed with investment associate Rex [id number] The patient is a 79-year-old male presenting with chronic back pain and hip pain, 1 month status post left intra-articular hip injection. The chronic back pain is described as radiating from the spine and affecting daily activities, requiring frequent positional changes for relief. The patient finds some relief through tactile pressure on the affected area. February 28 the underwent left L3-4 transforaminal epidural steroid injection with 80% improvement of his symptoms. The hip pain, treated with an injection, remains significant despite initial relief, with a pain level of 8 out of 10. - Onset and Timing: Chronic, persistent pain affecting both day and night. - Quality and Character: Pain radiates from the spine and spreads downwards. - Primary Location: Spine and hip. - Areas of Radiation: Pain spreads from the spine downwards. - Exacerbating Factors: Requires frequent changes in body position. - Relieving Factors: Tactile pressure provides some relief. - Interference with Activities: Affects daily activities and sleep. - Affect: Pain impacts daily activities and sleep. - Analgesia: Uses Tylenol for pain relief; current pain level is 8/10. - Adverse Effects: Discontinued one diabetes medication due to adverse effects. - Activities of Daily Living: Pain affects ability to move and sleep comfortably. - Aberrant Drug Related Behaviors: None reported. 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 Father No problems noted. Brother CAD (coronary artery disease) Sister Alzheimer disease Social History Household Members: Other Household Members Other:: 2 roomates Housing: Apartment Are you a primary care trainer to a significant other at home: No Do you presently have visiting nurse or other home services: Yes Alcohol intake: never Patient Tobacco Use Status: Former Tobacco user Cigarette Packs Per Day: 0.5 Cigarettes Per Day: 10.0 Years Smoked: 60 +/- , quit- Oct 12 2023 Review of Systems Narrative - Musculoskeletal: Reports chronic back pain and hip pain. - Endocrine: Reports diabetes mellitus with recent medication changes. Physical Exam Exam Exam: General: awake, alert, oriented. Answers questions appropriately. Fully engaged in examination. Skin: warm, dry, intact HEENT: Normocephalic. Hearing intact. Cardiac: External chest normal in appearance. Respiratory: No cough, audible wheezing or stridor. Abdomen: without gross distension. MS: No obvious swelling or deformities. Able to transition from sit to stand unassisted. Ambulates with bilaterally normal heel strike and toe off Tenderness over midline lumbar vertebrae and lumbar paraspinal muscles Neurological: Oriented to person, place, time and situation. Thought process intact. No gait abnormalities appreciated. Psychiatric: Appropriate mood and affect. Good judgment and insight. Vital Signs: Last Vital Signs Pulse 80 06/16/25 10:07 Resp 16 06/16/25 10:07 BP 133/64 06/16/25 10:07 Pulse Ox 94 06/16/25 10:07 Oxygen Delivery Method Room Air 06/16/25 10:07 BMI result Body Mass Index 39.1 Results Reviewed Results Reviewed: 10/29/23 MR lumbar spine wo con FINDINGS: Motion degraded examination. STIR sequence is particularly motion degraded and near nondiagnostic. Within this limitation, no significant marrow edema is identified. Rightward curvature of the lumbar spine. No suspicious marrow signal or focal osseous lesion. T12 and L2 vertebral body hemangiomas. Mild right-sided type II endplate marrow signal changes at L5-S1 The vertebral body heights are maintained. Multilevel disc dessication and height loss. The conus medullaris terminates at the level of L1. The distal spinal cord is normal in appearance. The cauda equina nerve roots appear normal. No significant abnormalities of the paraspinal musculature. Limited evaluation of the intra-abdominal structures without significant abnormalities. Right renal cyst for which no further imaging follow-up is required. The abdominal aorta is of normal contour and caliber. SPINAL LEVELS: T12-L1: Shallow disc bulge. No significant spinal canal or neural foraminal narrowing L1-L2: No significant spinal canal or neuroforaminal narrowing. Shallow disc bulge and mild facet arthropathy. L2-L3: No significant spinal canal or neuroforaminal narrowing. L3-L4: Left greater than right facet arthropathy. Left eccentric disc osteophyte complex. Ligamentum flavum thickening. No significant central spinal canal stenosis. Stable mild right and moderate to severe left neural foraminal narrowing with impingement of the exiting left L3 nerve root. L4-L5: Facet arthropathy. Shallow disc bulge. No significant central spinal canal stenosis. Stable mild bilateral neural foraminal narrowing, left greater than right. L5-S1: Right greater than left facet arthropathy with right joint effusion. Right eccentric disc osteophyte complex. No significant central spinal canal stenosis. Stable severe right neural foraminal narrowing with impingement of the exiting right L5 nerve root and right subarticular zone narrowing with possible impingement of the traversing right S1 nerve root IMPRESSION: Rightward curvature of the lumbar spine and multilevel spondylosis as described above appears similar to MRI from 09/29/2022 without significant central spinal canal narrowing. Neural foraminal stenosis is worst and severe on the right at L5-S1 with impingement of the exiting right L5 nerve root and moderate to severe on the left at L3-L4 with impingement of the exiting left L3 nerve root. Assessment & Plan Assessment & Plan (1) Lumbar radiculopathy: Code(s): M54.16 - Radiculopathy, lumbar region Category: Medical (2) Disc degeneration, lumbar: Code(s): M51.36 - Other intervertebral disc degeneration, lumbar region Category: Medical (3) Left hip pain: Code(s): M25.552 - Pain in left hip Category: Medical Plan The plan involves obtaining insurance approval for a repeat epidural steroid injection, which has previously provided significant pain relief. The patient will be scheduled for the procedure upon approval. In terms of diabetes management, the patient should continue monitoring glucose levels and consult with the primary care provider regarding medication adjustments due to adverse effects. Schedule for fluoroscopy guided left L3-4 transforaminal epidural steroid injection with local anesthetic. Patient was informed and verbally consented to the use of an ambient scribe for clinic note documentation during this visit. Patient Instructions: - Await contact for scheduling the back injection once insurance approval is obtained. - Continue monitoring blood glucose levels regularly. - Consult with primary care provider regarding diabetes medication adjustments. Coding Level of Care Code Est Pt Level 3 (99341) Complex EM visit Add On G2211 Diagnoses Lumbar radiculopathy M54.16 Disc degeneration, lumbar M51.36 Left hip pain M25.552
--- OUTSIDE RECORDS SUMMARY | 2025-06-16 10:46 | XMS_ITS | Clinical Summary ---
Author Organization [facility] Address [address] [place] [address] [address] [place] REINA [address] Phone Care Team Providers Care Cone Worker Name Role Phone Bridgette Gandhi MD Primary Care Provider [phone] Allergies Active Allergy Reactions Criticality Noted Date [...] Visit [facility] [address] [place] [address] Gómez Colunga MD [address] [facility] [address] [place] [address] Health Maintenance Due Date Last [...] age to complete this topic Insurance [facility] ([id number]) [facility] ([id number]) Care Teams Cone Worker Relationship Specialty Start Date End Date Bridgette Gandhi MD [address] [place] [address] PCP - General 08/27/20
--- OUTSIDE RECORDS SUMMARY | 2025-06-16 10:46 | XMS_ITS | Encounter Summary ---
Author Organization [employer] Address [address] [facility] 7t [place] [address] Care Team Providers Care Skein Dyer Name Role Phone Bridgette Gandhi MD Primary Care Provider [phone] Ramón Bolaños PharmD Unavailable [phone] Reason for Visit * Reason Onset Date Comments ER Follow-up 05/26/2024 Nurse Triage 05/26/2024 Encounter Details Date Type Department Care Team (Late st Contact Info) Description 05/26/2024 Telephone [facility] MEDICINE [address] [place], [place] [phone] Bridgette Gandhi MD [address] [place], [place] [phone] ER Follow-up; Nurse Triage Social History Tobacco [...] Please assist with obtaining discharge summary for [facility] ED visit on 05/25/24 for provider review prior to upcoming appointment. Future Appointments Date Time Provider Department Center 05/27/2024 8:45 AM Jeremias Gong MD [facility] 01/11/2025 10:00 AM Susy Dixon PharmD [facility] * Telephone Encounter - Danii Hope [...] Center 05/27/2024 8:45 AM Jeremias Gong MD [facility] 01/11/2025 10:00 AM Susy Dixon PharmD MEDICINE [facility] Insurance verified as active per Real [...] ED visit on : Date: 05/25/24 Hospital: [facility] Seen for: Severe hip and [...] Description 07/10/2025 1:30 PM EST Office Visit [facility] ADULT DENTAL [address] [place] [address] Lydia Mac [address] [place] [address] documented as of this encounter Goals Goal [...] documented as of this encounter Care Teams Skein Dyer Relationship Specialty Start Date End Date Bridgette Gandhi MD [address] [place] [address] PCP - General Family Medicine 07/01/12 Ramón Bolaños, PharmD [address] [place] [address] Pharmacist Internal Medicine 11/18/23 documented as of this encounter
--- OUTSIDE RECORDS SUMMARY | 2025-06-16 10:46 | XMS_ITS | Encounter Summary ---
Author Organization [employer] Address [address] [facility] 7t [place] [address] Care Team Providers Care Terrazzo Helper Name Role Phone Bridgette Gandhi MD Primary Care Provider Ramón Bolaños PharmD Unavailable Reason for Visit * Reason Comments Med Refill Encounter Details Date Type Department Care Team (Late st Contact Info) Description 10/22/2022 Refill [facility] MEDICINE [address] [place], [place] [phone] Tamela Drake MD 230 [place], [place] [phone] Dyslipidemia (Primary Dx) Social History Tobacco Use [...] 1:30 PM EST Office Visit [facility] ADULT DENTAL [address] [place] [address] Lydia Mac [address] [place], [place] [phone] documented as of this encounter Visit Diagnoses Diagnosis Dyslipidemia- Primary Other and unspecified hyperlipidemia documented in this encounter Additional Health Concerns Assessment Noted Time PHQ-9 Depression Total Score: 5 09/11/19 23 10:25 AM EST documented as of this encounter Care Teams Terrazzo Helper Relationship Specialty Start Date End Date Bridgette Gandhi MD [address] [place] [address] PCP - General Family Medicine 07/01/12 Ramón Bolaños, MollyD [address] [place] [address] Pharmacist Internal Medicine 11/18/23 documented as of this encounter
--- OUTSIDE RECORDS SUMMARY | 2025-06-16 10:46 | XMS_ITS | Encounter Summary ---
Author Organization [facility] Address [address] [place] [address] Care Team Providers Care Hvac Design Engineer Name Role Phone Bridgette Gandhi MD Primary Care Provider [phone] Ramón Bolaños PharmD Unavailable Encounter Details Date Type Department Care Team (Late st Contact Info) Description 07/31/2022 Abstract [facility] [address] [place] [address] Lydia Mac [address] [place] [address] Social History Tobacco Use Types Packs/Day Years [...] Description 07/10/2025 1:30 PM EST Office Visit [facility] [address] [place] [address] Lydia Mac [address] [place] [address] documented as of this encounter Visit Diagnoses Not on filedocumented in this encounter Care Teams Hvac Design Engineer Relationship Specialty Start Date End Date Bridgette Gandhi MD [address] [place] [address] PCP - General Family Medicine 07/01/12 Ramón Bolaños, MollyD [address] [place] [address] Pharmacist Internal Medicine 11/18/23 documented as of this encounter
--- OUTSIDE RECORDS SUMMARY | 2025-06-16 10:46 | XMS_ITS ---
Author Name [facility] Address [address] [place] [address] Phone [phone] [facility] Care Team Providers Care Manager Rental Name Role Phone Qi Waddell Unavailable [phone] ROSENEENA VELEZO Unavailable [phone] Concepción Mcrae Unavailable [phone] Unavailable Unavailable Unavailable Reason for Referral Not [...] 2022-03-10 No Data Available [place] Nasal [place] 0.65 % Solution USE 1-2 SPRAYS IN [...] persistent NOLEN< blurry vision)07/25/2024:Follows up with PCP, Roof Plumber, last visit 2 weeks ago.Taking: amLODIPine Besylate [...] ophthalmology every 3-6 months 07/25/2024:Follows up with Commercial Agent.Continues using: Latanoprost drops.Denies any acute complaint. Chronic [...] likely not be covered by health plan. [facility] cc info sent to member and MORTGAGE OPERATIONS MANAGER. Advised to f/u with recliner request during 07/27/24 f/u visit with PCP, as may need PT/OT eval. Loose stools Active 2025-05-18 N/A StableReport s intermittent loose stoolDietary and lifestyle interventions [facility]IRE[facility] medications - Imodium if diarrhea developsContact CB if having change in BM and continue with PCP. Encounters Encounters Type Facility Date of Service Diagnosis/Co mplaint New patient,40-59min; chronic exacerbation, 2 stable chronic or 1 acute illness add add modifier 95 for video (do not use for phone, instead use 28568-52) [facility] [place]/2022 Type 2 diabetes mellitus wit h diabetic neuropathy, unspecifiedHypertensive heart disease with heart failureHeart failure, unspecifiedMorbid (severe) obesity due to excess caloriesMajor depressive disorder, recurrent, mildChronic obstructive pulmonary disease, unspecifiedOther amnesiaUnspecified glaucomaBody mass index (bmi) 39.0-39.9, adult New patient,40-59min; chronic exacerbation, 2 stable chronic or 1 acute illness add add modifier 95 for video (do not use for phone, instead use 30472-54) [facility] [place] 10[place]/2022 New patient,40-59min; chronic exacerbation, 2 stable chronic or 1 acute illness add add modifier 95 for video (do not use for phone, instead use 41209-62) [facility] [place] 10/28/2022 New patient,40-59min; chronic exacerbation, 2 stable chronic or 1 acute illness add add modifier 95 for video (do not use for phone, instead use 84668-68) [facility] [place] 10/28/2022 New patient,40-59min; chronic exacerbation, 2 stable chronic or 1 acute illness add add modifier 95 for video (do not use for phone, instead use 03062-01) [facility] [place] 10/28/2022 New patient,40-59min; chronic exacerbation, 2 stable chronic or 1 acute illness add add modifier 95 for video (do not use for phone, instead use 70654-74) [facility] [place] 10/28/2022 New patient,40-59min; chronic exacerbation, 2 stable chronic or 1 acute illness add add modifier 95 for video (do not use for phone, instead use 35511-58) [facility] [place] 10/28/2022 New patient,40-59min; chronic exacerbation, 2 stable chronic or 1 acute illness add add modifier 95 for video (do not use for phone, instead use 92918-51) [facility] [place] 10/28/2022 New patient,40-59min; chronic exacerbation, 2 stable chronic or 1 acute illness add add modifier 95 for video (do not use for phone, instead use 33739-98) [facility] [place] 10/28/2022 No Data Available [facility] [place] 10/29/2022 Type 2 diabetes mellitus wit h diabetic neuropathy, unspecifiedMorbid (severe) obesity due to excess caloriesMajor depressive disorder, recurrent, mildHeart failure, unspecifiedHypertensive heart disease with heart failureChronic obstructive pulmonary disease, unspecifiedOther amnesiaUnspecified glaucoma No Data Available [facility] [place] 10/29/2022 No Data Available [facility] [place] 10/29/2022 Estab. patient 30-39min; chronic exacerbation, 2 stable chronic or 1 acute illness add add modifier 95 for video, (do not use for phone, instead use 37724-39) [facility] [place] 10/27/2023 Type 2 diabetes mellitus wit h [...] (do not use for phone, instead use 11314-69) [facility] [place] 10/27/2023 Estab. patient 30-39min; chronic exacerbation, 2 stable chronic or 1 acute illness add add modifier 95 for video, (do not use for phone, instead use 27750-18) [facility] [place] 10/27/2023 Estab. patient 30-39min; chronic exacerbation, 2 stable chronic or 1 acute illness add add modifier 95 for video, (do not use for phone, instead use 00497-84) [facility] [place] 10/27/2023 Estab. patient 30-39min; chronic exacerbation, 2 stable chronic or 1 acute illness add add modifier 95 for video, (do not use for phone, instead use 97436-66) [facility] [place] 10/27/2023 Estab. patient 30-39min; chronic exacerbation, 2 stable chronic or 1 acute illness add add modifier 95 for video, (do not use for phone, instead use 20134-52) [facility] [place] 10[place]27/2023 Estab. patient 30-39min; chronic exacerbation, 2 stable chronic or 1 acute illness add add modifier 95 for video, (do not use for phone, instead use 78282-06) [facility] [place] 10/27/2023 Estab. patient 30-39min; chronic exacerbation, 2 stable chronic or 1 acute illness add add modifier 95 for video, (do not use for phone, instead use 88718-97) [facility] [place] 10/27/2023 Estab. patient 30-39min; chronic exacerbation, 2 stable chronic or 1 acute illness add add modifier 95 for video, (do not use for phone, instead use 50075-73) [facility] [place] 10/27/2023 Estab. patient 30-39min; chronic exacerbation, 2 stable chronic or 1 acute illness add add modifier 95 for video, (do not use for phone, instead use 06701-14) [facility] [place] 10/27/2023 Estab. patient 20-29min; 1 stable chronic [...] 93 for phone [facility] [place] 05/30/2024 Estab. patient 20-29min; 1 stable chronic or 2 minor; add add modifier 95 for video, modifier 93 for phone [facility] [place] 05/30/2024 Estab. patient 20-29min; 1 stable chronic or 2 minor; add add modifier 95 for video, modifier 93 for phone [facility] [place] 05/30/2024 Estab. patient 20-29min; 1 stable chronic or 2 minor; add add modifier 95 for video, modifier 93 for phone [facility] [place] 05/30/2024 No Data Available [facility] [place] 07/25/2024 Hypertensive heart disease w ith heart failureHeart failure, unspecifiedSecondary hyperaldosteronismChronic obstructive pulmonary disease, unspecifiedUnspecified glaucomaOther problems related to medical facilities and other health careOther chronic pain No Data Available [facility] [place] 07/25/2024 No Data Available [facility] [place] 07/25/2024 Estab. patient 10-29min; 1 minor problem; add add modifier 95 for video, modifier 93 for phone [facility] [place] 05/18/2025 Type 2 diabetes mellitus wit h [...] for phone [facility] [place] 05/18/2025 Estab. patient 10-29min; 1 minor [...] Current Smoking Status Current every day smoker 2025-06-16 Sex Male History of Procedures Procedures Service Procedure code Service date Servicing provider Phone# New patient,40-59min; chronic exacerbation, 2 stable chronic or 1 acute illness add add modifier 95 for video (do not use for phone, instead use 20466-84) [id number] 2022-10-28 No Data Available No Data Availa [...] No Data Nancy ilable No Data Available [id number] 2022-10-29 No Data Available No Data Available [...] (do not use for phone, instead use 89131-81) [id number] 2023-10-27 No Data Available No Data Availa [...] 95 for video, modifier 93 for phone [id number] 2024-05-30 No Data Available No Data Availa [...] le No Data Available No Data Available [id number] 2024-07-25 No Data Available No Data Available Medication List Documented (1159F) 1159F 2024-07-25 No Data Available No Data Nancy ilable Pain Assessment - Pain Documented on a Pain Scale (1125F) 1125F 2024-07-25 No Data Available No Data Nancy ilable Estab. patient 10-29min; 1 minor problem; add add modifier 95 for video, modifier 93 for phone [id number] 2025-05-18 No Data Available No Data Availa [...] persistent NOLEN< blurry vision)10/27/2023:Follows up with PCP, Roof Plumber, last visit 2 weeks ago.BP: 119/68. Reported [...] ophthalmology every 3-6 months 10/27/2023:Follows up with Commercial Agent.Continues using: Latanoprost drops.Denies any acute complaint.Reports chronic [...] (no modifier 95)Pain Assessment - Pain Documented (9716F)Continue to see PCP. Follow-up with [facility] as needed for any acute or disease education needs that may arise 09/03.StableLisinopril, Furosemide Avg BP: 120s/60sContinue taking medications as prescribed, continue monitoring BP, discussed low salt diet, exercise as tolerable, and lifestyle interventions. Contact us if developing emergent HTN s/sx (eg. 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 [facility] cc info sent to member and MORTGAGE OPERATIONS MANAGER. 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 [facility] cc info sent to member and MORTGAGE OPERATIONS MANAGER. Advised to f/u with recliner request [...] questions or concerns. [facility] or [facility]. CB 24/7 phone [...] okDo you have a Durable Power of Chief Lifestyle Officer for Healthcare, or Healthcare Proxy Or Guardianship? Yes, preferred proxy but not named POAIf so, Who? daughter, Senait Hernandez you have a written Advance Directive? Has no formal [id number] : AD or surrogate was documented in [...]
--- OUTSIDE RECORDS SUMMARY | 2025-06-16 10:46 | XMS_ITS | Encounter Summary ---
Author Organization [employer] Address [address] [place] [address] Care Team Providers Care Hand Weaver Name Role Phone Bridgette Gandhi MD Primary Care Provider [phone] Ramón Bolaños PharmD Unavailable [phone] Reason for Visit * Reason Comments Med Refill Encounter Details Date Type Department Care Team (Late st Contact Info) Description 03/10/2024 Refill [facility] [address] [place], [place] [phone] Bridgette Gandhi MD [address] [place] [address] Social History Tobacco Use Types Packs/Day Years [...] 07/10/2025 1:30 PM EST Office Visit [facility] [address] [place] [address] Greg Macaris [address] [place] [address] documented as of this encounter Goals Goal [...] documented as of this encounter Care Teams Hand Weaver Relationship Specialty Start Date End Date Bridgette Gandhi MD [address] [place] [address] PCP - General Family Medicine 07/01/12 Ramón Bolaños, MollyD [address] [place] [phone] Pharmacist Internal Medicine 11/18/23 documented as of this encounter
--- OUTSIDE RECORDS SUMMARY | 2025-06-16 10:46 | XMS_ITS | Encounter Summary ---
Author Organization [facility] Address [address] [facility] [address] [place] [phone] Phone Care Team Providers Care Sales Planning Coordinator Name Role Phone Unknown, Unknown Primary Care Provider Terrence montano Encounter Details Date Type Department Care Team (Late st Contact Info) Description 05/30/2019 Ancillary Orders [facility] [address] [place] [address] [place] [address] Sylvester Hdez, DO [address] [place] [address] Bradycardia Social History Tobacco Use Types Packs/Day [...] dysrhythmias documented in this encounter Care Teams Sales Planning Coordinator Relationship Specialty Start Date End Date Unknown, Unknown, PCP - General 05/23/19 documented as of this encounter Additional Source Comments The information contained in this document represents components of the legal health record. It is not the complete legal health record.[facility]
--- OUTSIDE RECORDS SUMMARY | 2025-06-16 10:46 | XMS_ITS | Encounter Summary ---
Author Organization [employer] Address [address] [place] [address] [address] [place] [address] Care Team Providers Care Sawmill Equipment Operator Name Role Phone Bridgette Gandhi MD Primary Care Provider Ramón Bolaños PharmD Unavailable [phone] Encounter Details Date Type Department Care Team (Late st Contact Info) Description 07/30/2022 Abstract [facility] [address] [place] [address] Lydia Mac [address] [place] [address] Social History Tobacco Use Types Packs/Day Years [...] 07/10/2025 1:30 PM EST Office Visit [facility] [address] [place] [address] Lydia Mac [address] [place] [address] documented as of this encounter Procedures Procedure [...] on filedocumented in this encounter Care Teams Sawmill Equipment Operator Relationship Specialty Start Date End Date Bridgette Gandhi MD [address] [place] [address] PCP - General Family Medicine 07/01/12 Ramón Bolaños PharmD [address] [place] [address] Pharmacist Internal Medicine 11/18/23 documented as of this encounter
--- OUTSIDE RECORDS SUMMARY | 2025-06-16 10:46 | XMS_ITS | Clinical Summary ---
Author Organization [employer] Address [address] [place] [address] 7t [place] [address] Care Team Providers Care Automatic Dry Starch Operator Name Role Phone Bridgette Fagan MD Primary Care Provider [phone] Ramón Bolaños PharmD Unavailable [phone] Allergies Active Allergy Reactions Criticality Noted Date [...] mL 12 3 Active Deep Sea Nasal [place] 0.65 % nasal spray USE 1-2 SPRAYS [...] occurs) 4 Active Lancets (OneTouch Delica Plus [id number]) miscIndications:T ype 2 diabetes mellitus without complications [...] and following plan per urologist Fractured dental evangelical with loss of materi al 08/01/2024 Caries [...] aorta measuring 4.00 cm - Followed by Senior Lead Software Engineer, monitor with echo every 6-12 months - Continue BP management - Referred to [facility] cardiology per patient's family's request since [facility] moved to [place] Assessment & Plan (11/04/2024 6:07 AM EDT): - 11/26/23 Echo showed mild dilatation of the ascending aorta measuring 4.00 cm - Followed by Senior Lead Software Engineer, monitor with echo every 6-12 months - Continue BP management Assessment & Plan (04/07/2024 11:49 AM EDT): - 11/26/23 Echo showed mild dilatation of the ascending aorta measuring 4.00 cm - Followed by Senior Lead Software Engineer, monitor with echo every 6-12 months - Continue BP management Assessment & Plan (01/04/2024 11:35 AM EDT): - 11/26/23 Echo showed mild dilatation of the ascending aorta measuring 4.00 cm - Followed by Senior Lead Software Engineer, monitor with echo every 6-12 months - Continue BP management Periodic limb movement disorder (PLMD) Assessment & Plan (05/15/2025 7:03 AM EDT): - Noted on his last sleep study - Previously seeing [facility] neurology / sleep medicine clinic. Reconnect care. [...] MRI on 04/14/23: mild chronic ischemic microangiopathy; cfjr-[id number] generalized diffuse supratentorial and cerebellar vermian parenchymal [...] MRI on 04/14/23: mild chronic ischemic microangiopathy; cqgd-zs-ixcsoyty generalized diffuse supratentorial and cerebellar vermian parenchymal [...] Plan (11/04/2023 12:40 PM EDT): -Seen by [facility] provider in Apr 2021. Recommended to continue conservative management of compression stocking, DASH diet, and leg elevation. Discontinued Diltiazem due to possible side effects. -possible venous ablation -06/02/23 venous study showed b/l venous insufficiency. -recommended to discuss with his transition program manager and vascular specialist at [facility] for other treatment options, if appropriate -discontinued amlodipine and hydralazine recently - continue torsemide Assessment & Plan (08/14/2023 11:15 AM EST): -Seen by [facility] provider in Apr 2021. Recommended to continue conservative management of compression stocking, DASH diet, and leg elevation. Discontinued Diltiazem due to possible side effects. -possible venous ablation -06/02/23 venous study showed b/l venous insufficiency. -recommended to discuss with his transition program manager and vascular specialist at [facility] for other treatment options, if appropriate Assessment & Plan (05/11/2023 8:29 AM EDT): -Seen by [facility] provider in Apr 2021. Recommended to continue conservative management of compression stocking, DASH diet, and leg elevation. Discontinued Diltiazem due to possible side effects. -possible venous ablation -schedule venous study Assessment & Plan (2022 9:36 AM EST): -Seen by [facility] provider in Apr 2021. Recommended to continue conservative management of compression stocking, DASH diet, and leg elevation. Discontinued Diltiazem due to possible side effects. -possible venous ablation Lumbar radiculopathy 2022 Assessment & Plan (05/15/2025 7:07 AM EDT): - last evaluated by paint tinter in March 2025 - last injection treatment [...] prn - Following with Pain management, [facility] - last injection treatment left L3-L4 transforaminal epidural steroid injection for lumbar radiculopathy and lumbar degenerative disc disease in February 2025 - Previously tried PT; declined further PT, but agreed to see Dr. Hoang - MRI on 09/29/22 showing spinal stenosis with compression of the Exiting right L5 nerve root. 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, [...] to pt's questionable adherence - co-managed with transition program manager, automatic bandsaw tender, boiler house inspector, and pharmacist - 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, [...] to pt's questionable adherence - comanaged with transition program manager, automatic bandsaw tender, boiler house inspector, and pharmacist - 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, [...] to pt's questionable adherence - comanaged with transition program manager, automatic bandsaw tender, boiler house inspector, and pharmacist - 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, [...] to pt's questionable adherence - comanaged with transition program manager, automatic bandsaw tender, and pharmacist - check primary aldosteronism; [...] to pt's questionable adherence - comanaged with transition program manager, automatic bandsaw tender, and pharmacist - check primary aldosteronism; [...] to pt's questionable adherence - comanaged with transition program manager, automatic bandsaw tender, and pharmacist - check primary aldosteronism; [...] to pt's questionable adherence - comanaged with transition program manager, boiler house inspector, and pharmacist -?24-hr ambulatory BP monitor result [...] PLAN FOR COPD (CHRONIC OBSTRUCTIVE PULMONARY DISEASE) ([facility]) WRITTEN ON 08/13/2023 4:56 AM BY BRIDGETTE [...] PLAN FOR COPD (CHRONIC OBSTRUCTIVE PULMONARY DISEASE) ([facility]) WRITTEN ON 05/11/2023 8:27 AM BY BRIDGETTE [...] [facility] sleep clinic, last appointment in May 2024, [...] Type Department Care Team Description 05/23/2025 Refill [place] [address] Bridgette Fagan MD 05/03/2025 11:00 AM EDT Office Visit [address] [address] Bridgette Fagan MD Hypertension, unspecified type (Primary [...] Generic External Data 05/03/2025 Travel 05/02/2025 Telephone [place] [address] Bridgette Fagan MD CHART PREP 04/11/2025 Telephone [place] [address] Bridgette Fagan MD Records Request 04/06/2025 Orders Only [place] [address] Bridgette Fagan MD Hypertension, unspecified type (Primary Dx); Venous insufficiency; Ascending aorta dilation (CMS/HCC) 04/06/[address] [address] Bridgette Fagan MD Referral from Last 3 [...] 07/10/2025 1:30 PM EST Office Visit [facility] [address] [place], [place] [phone] Bubba Lydia [address] [place] [address] Health Maintenance Due Date Last Done Comments [...] complication, without long-term current use of insulin ([facility]) PROPHYLAXIS - ADULT Routine 01/06/2025 1 0:00 AM EDT Dental plaque ALBUMIN, RANDOM URINE W/CREATININE Routine 10/28/2024 9:15 AM EDT Controlled type 2 diabetes mellitus without complication, without long-term current use of insulin ([facility]) LIPID PANEL WITH REFLEX TO DIRECT LDL Routine 10/28/2024 9:15 AM EDT Controlled type 2 diabetes mellitus without complication, without long-term current use of insulin ([facility]) BITEWING - SINGLE RADIOGRAPHIC IMAGE Routine 09/12/2024 [...] PSA,Total (Free>4and<10) 1.14 0.00 - 4.00 ng/mL [facility] Comment:A Free PSA was not p [...] Provider LAB BLOOD ORDERAB LES Final Result [facility] [address] [place] [phone] * (ABNORMAL) POCT glycosylated hemoglobin (Hgb [...] 9:15 AM EDT) Triglycerides 125 <150 mg/dL [facility] Comment:Desirable Triglyceri de: less than 150 mg/dLBorderline High Triglyceride 150-199 mg/dLHigh Triglyceride: 200-499 mg/dLVery High Triglyceride: greater than or equal to 5OO mg/dL Cholesterol 126 <200 mg/dL [facility] Comment:Desirable Cholestero l: less than 200 mg/dLBorderline High Cholesterol: 200-239 mg/dLHigh Cholesterol: greater than 239 mg/dL LDL Cholesterol Calculated 58 <100 mg/dL [facility] Comment:Desirable LDL: less than 100 mg/dLNear Optimal/Above Optimal LDL: 110- 129 mg/dLBorderline High LDL: 130-159 mg/dLHigh LDL: 160-189 mg/dLVery High LDL: greater than or equal to 190 mg/dL HDL Cholesterol 43 >40 mg/dL [facility] Comment:Desirable HDL: great er than 40 mg/dL Note: This HDL assay may give artificially low results in patients with liver disease. Blood 10/28/2024 9:15 AM EDT 10/28/2024 11:15 AM EDT us Bridgette Fagan MD LAB BLOOD ORDERABLES Final Resul t [facility] [address] [place] [phone] * (ABNORMAL) Albumin, Random Urine W/Creatinine (10/28/2024 9:15 AM EDT) Creatinine, Urine 247.97 mg/dL [facility] Microalbumin Urine 145.0 mg/L [facility] Microalbum Creatinine Ratio Ur 58.4(H) <30 ug/mg cr [facility] Comment:Albumin/Creatinine R atio Reference Ranges: Normal: < 30 ug/mg creatinine Microalbuminuria: 30 - 300 ug/mg creatinineClinical Albuminuria: > 300 ug/mg creatinine Urine 10/28/2024 9:15 AM EDT 10/28/2024 11:14 AM EDT Bridgette Fagan MD LAB URINE ORDERABLES Final Resul t [facility] [address] [place] [phone] * Hm Diabetes Eye Exam (06/29/2024) Eye Exam Normal Normal 06/29/2024 Historical Provider HEALTH MAINTENANCE Final Result * CT Lung Screening Low dose (12/22/2023 9:58 AM EDT) Anatomical Region Laterality Modality Lung Computed Tomogra phy 12/22/2023 9:58 AM EDT Narrative 12/27/2023 11:40 PM EDT [address] [address] [address] Scan Report Signed Patient: Bharathi Walsh R#: [id number] : 1945 Acct:[id number] Age/Sex: 78 / M ADM Date: 12/22/23 Loc: HO.CT Attending Dr: Tc Castillo MD Ordering Physician: Tc Castillo MD Date of Service: 12/22/23 Procedure(s): CT lung screening Accession Number(s): [id number] cc: Tc Castillo MD; Bridgette Fagan MD [...] for CT CHEST LOW DOSE CANCER SCREENING ([id number]) can be placed. Dictated By: Kun Enciso MD Signed By: <Electronically signed by Kun Enciso MD in OV> 12/27/23 2336 DD/ 0958 TD/TT: Registered Private Duty Nurse: SS Procedure Note Donotuseinterpreter, Image - 12/27/[address] [address] [address] Scan Report Signed Patient: Shalom Walsh R#: [id number] : 6Acct:[id number] Age/Sex: 78 / MADM Date: 12/22/23 Loc: HO.CT Attending Dr: Tc Castillo MD Ordering Physician: Tc Castillo MD Date of Service: 12/22/23 Procedure(s): CT lung screening Accession Number(s): [id number] cc: Tc Castillo MD; Bridgette Fagan MD [...] for CT CHEST LOW DOSE CANCER SCREENING ([id number]) can be placed. Dictated By: Kun Enciso MD Signed By: <Electronically signed by Kun Enciso MD in OV> 12/27/23 2336 DD/ 0958 TD/TT: Registered Private Duty Nurse: ANGELA [facility] External Provider IMG CT PROCEDURES Edited Result - Final from Last 3 Months or Most Recently Relevant to Health Maintenance Insurance [facility] - [facility] Care Teams Automatic Dry Starch Operator Relationship Specialty Start Date End Date Bridgette Fagan MD [address] [place] [address] PCP - General Family Medicine 07/01/12 Ramón Bolaños, MollyD [address] [place] [phone] Pharmacist Internal Medicine 11/18/23
--- OUTSIDE RECORDS SUMMARY | 2025-06-16 10:46 | XMS_ITS | Clinical Summary ---
Author Organization [facility] Address [address] [place], [place] [phone] Phone Care Team Providers Care Organ Teacher Name Role Phone Unknown, Unknown Primary Care [...] file Medical Devices Not on file Insurance [facility] MEDICARE REPLACEMENT [place] [address] MEDICARE REPLACEMENT MEDICARE REPLACEMENT [place] [id number] [place] [address] [place] [address] MEDICARE REPLACEMENT MEDICARE REPLACEMENT [facility] MEDICARE REPLACEMENT [facility] MEDICARE REPLACEMENT [facility] MEDICARE REPLACEMENT Care Teams Organ Teacher Relationship Specialty Start Date End Date Unknown, Unknown, PCP - General 05/23/19 Additional Source Comments The information contained in this document represents components of the legal health record. It is not the complete legal health record.[facility]
--- OUTSIDE RECORDS SUMMARY | 2025-06-16 10:46 | XMS_ITS | Encounter Summary ---
Demographics Address [address] [place] [address] Mobile Phone Home Phone Work Phone Preferred Language es Marital Status Lutheran Affiliation Unknown Race Other Race Ethnic Group Unknown Author Organization [employer] Address [address] [place] [address] Care Team Providers Care Hedis Review Nurse Name Role Phone Bridgette Gandhi MD Primary Care Provider [phone] Ramón Bolaños PharmD Unavailable [phone] Reason for Referral * Consultation (Routine) - Closed Specialty Diagnoses / Procedures Referred By Jj t Referred To Contact Orthopaedic Surgery Diagnoses Primary osteoarthritis of both hips Primary osteoarthritis of both knees Bridgette Gandhi MD [address] [place] [address] Phone: tel: fax: [facility] [address] [place] [address] Drive [address] [place], [place] Phone: tel: fax: Referral ID Status Reason Start Date Expiration Date V isits Requested Visits Authorized [id number] Closed Specialty Services Required 02/23/2024 02/22/2025 1 1 Encounter Details Date Type Department Care Team (Late st Contact Info) Description 02/23/2024 Orders Only [facility] [address] [place] [address] Bridgette Gandhi MD [address] [place], [place] [phone] Primary osteoarthritis of both hips (Primary Dx); [...] Description 07/10/2025 1:30 PM EST Office Visit [facility] [address] [place] [address] Lydia Mac [address] [place] [address] Scheduled Referrals Name Type Priority Associated Diagnoses [...] documented as of this encounter Care Teams Hedis Review Nurse Relationship Specialty Start Date End Date Bridgette Gandhi MD [address] [place] [address] PCP - General Family Medicine 07/01/12 Ramón Bolaños PharmD [address] [place] [address] Pharmacist Internal Medicine 11/18/23 documented as of this encounter
--- OUTSIDE RECORDS SUMMARY | 2025-06-16 10:46 | XMS_ITS | Encounter Summary ---
Author Organization [email or web address] Address [address] 7[address] [place] [address] Care Team Providers Care Freight Loader Name Role Phone Bridgette Gandhi MD Primary Care Provider [phone] Ramón Bolaños PharmD Unavailable [phone] Encounter Details Date Type Department Care Team (Late st Contact Info) Description 02/17/2025 Orders Only [facility] [address] [place], [place] [phone] Bridgette Gandhi MD [address] [place], [place] [phone] Osteoporosis screening (Primary Dx) Social History Tobacco [...] Description 07/10/2025 1:30 PM EST Office Visit [facility] [address] [place] [address] Bubba, Lydia [address] [place] [address] documented as of this encounter Goals Goal [...] documented as of this encounter Care Teams Freight Loader Relationship Specialty Start Date End Date Bridgette Gandhi MD [address] [place] [address] PCP - General Family Medicine 07/01/12 Ramón Bolaños, MollyD [address] [place] [address] Pharmacist Internal Medicine 11/18/23 documented as of this encounter
--- OUTSIDE RECORDS SUMMARY | 2025-06-16 10:46 | XMS_ITS | Encounter Summary ---
Author Organization [employer] Address [address] 7t [place] [address] Care Team Providers Care Pharmacy Student Name Role Phone Bridgette Gandhi MD Primary Care Provider [phone] Ramón Bolaños PharmD Unavailable [phone] Encounter Details Date Type Department Care Team (Late st Contact Info) Description 06/24/2024 Orders Only [facility] [address] [place], [place] [phone] Bridgette Gandhi MD [address] [place], [place] [phone] Social History Tobacco Use Types Packs/Day Years [...] 1:30 PM EST Office Visit [facility] ADULT D[facility] [address] [place] [address] Bubba, Lydia [address] [place] [address] documented as of this encounter Goals Goal Patient Goal Type Associated Problems Recent Progress Patient-Stated? Author Blood Pressure < 140/90 Blood Pressure 136/72(2024 11:04 AM EDT) No Rmaón Bolaños, PharmD Hemoglobin A1c < 7 Result Component 7.5( 11:15 AM EDT) No Ramón Bolaños PharmD documented as of this encounter Visit Diagnoses Not on filedocumented in this encounter Additional Health Concerns Assessment Noted Time PHQ-9 Depression Total Score: 0 04/07/20 11:45 AM EDT documented as of this encounter Care Teams Pharmacy Student Relationship Specialty Start Date End Date Bridgette Gandhi MD [address] [place] [address] PCP - General Family Medicine 07/01/12 Ramón Bolñaos, PharmD [address] [place] [address] Pharmacist Internal Medicine 11/18/23 documented as of this encounter
--- OUTSIDE RECORDS SUMMARY | 2025-06-16 10:46 | XMS_ITS | Encounter Summary ---
Author Organization [email or web address] Address [address] [place] [address] Care Team Providers Care Door To Door Fundraising Collector Name Role Phone Bridgette Gandhi MD Primary Care Provider Ramón Bolaños PharmD Unavailable Encounter Details Date Type Department Care Team (Late st Contact Info) Description 10/09/2022 Orders Only [facility] [address] [place], [place] [phone] Bridgette Gandhi MD [address] [place], [place] [phone] Spinal stenosis of lumbar region with neurogenic [...] 1:30 PM EST Office Visit [facility] [address] [place] [address] Lydia Mac [address] [place] [address] documented as of this encounter Visit Diagnoses Diagnosis Spinal stenosis of lumbar region with neurogenic claudication- Primary documented in this encounter Additional Health Concerns Assessment Noted Time PHQ-9 Depression Total Score: 5 09/11/19 23 10:25 AM EST documented as of this encounter Care Teams Door To Door Fundraising Collector Relationship Specialty Start Date End Date Bridgette Gandhi MD [address] [place] [address] PCP - General Family Medicine 07/01/12 Ramón Bolaños, PharmD [address] [place] [address] Pharmacist Internal Medicine 11/18/23 documented as of this encounter
--- OUTSIDE RECORDS SUMMARY | 2025-06-16 10:46 | XMS_ITS | Encounter Summary ---
Author Organization [facility] Address [address] 7t [place] [address] Care Team Providers Care Chemical Waste Management Technician Name Role Phone Bridgette Gandhi MD Primary Care Provider [phone] Ramón Bolaños PharmD Unavailable [phone] Encounter Details Date Type Department Care Team (Latest Contact Info) Description 06/20/2022 Abstract [facility] CONVERSIONS Dental, Provider, DDS Social History [...] 07/10/2025 1:30 PM EST Office Visit [facility]ULT D[facility] [address] [place] [address] Bubba, Lydia [address] [place] [address] documented as of this encounter Visit Diagnoses Not on filedocumented in this encounter Care Teams Chemical Waste Management Technician Relationship Specialty Start Date End Date Bridgette Gandhi MD [address] [place], [place] [phone] PCP - General Family Medicine 07/01/12 Ramón Bolaños, PharmD [address] [place] [address] Pharmacist Internal Medicine 11/18/23 documented as of this encounter
--- OUTSIDE RECORDS SUMMARY | 2025-06-16 10:46 | XMS_ITS | Encounter Summary ---
Author Organization [employer] Address [address] 7t [place] [address] Care Team Providers Care Stock Controller Name Role Phone Bridgette Gandhi MD Primary Care Provider [phone] Ramón Bolaños PharmD Unavailable [phone] Reason for Visit * Reason Onset Date Comments Medication Question 06/24/2024 Encounter Details Date Type Department Care Team (Late st Contact Info) Description 06/24/2024 Telephone [facility] [address] [place], [place] [phone] Bridgette Gandhi MD [address] [place], [place] [phone] Medication Question Social History Tobacco Use Types [...] broke. If any questions contact pt at [phone] documented in this encounter Plan of Treatment Upcoming Encounters Date Type Department Care Team (Late st Contact Info) Description 07/10/2025 1:30 PM EST Office Visit [facility] [address] [place] [address] Bubba, Lydia [address] [place] [address] documented as of this encounter Goals Goal [...] documented as of this encounter Care Teams Stock Controller Relationship Specialty Start Date End Date Bridgette Gandhi MD [address] [place] [address] PCP - General Family Medicine 07/01/12 Ramón Bolaños, Bradley [address] [place] [address] Pharmacist Internal Medicine 11/18/23 documented as of this encounter
--- OUTSIDE RECORDS SUMMARY | 2025-06-16 10:47 | XMS_ITS | Encounter Summary ---
Author Organization [employer] Address [address] [place] [address] Care Team Providers Care Shake Out Worker Name Role Phone Bridgette Gandhi MD Primary Care Provider [phone] Ramón Bolaños PharmD Unavailable [phone] Reason for Visit * Reason Comments Med Refill Encounter Details Date Type Department Care Team (Late st Contact Info) Description 06/07/2023 Refill [facility] [address] [place], [place] [phone] Bridgette Gandhi MD [address] [place], [place] [phone] Social History Tobacco Use Types Packs/Day Years [...] Description 07/10/2025 1:30 PM EST Office Visit [facility]ULT D[facility] [address] [place] [address] Bubba, Lydia [address] [place] [address] documented as of this encounter Visit Diagnoses Not on filedocumented in this encounter Additional Health Concerns Assessment Noted Time PHQ-9 Depression Total Score: 5 09/11/19 23 10:25 AM EST documented as of this encounter Care Teams Shake Out Worker Relationship Specialty Start Date End Date Bridgette Gandhi MD [address] [place] [address] PCP - General Family Medicine 07/01/12 Ramón Bolaños, Bradley [address] [place] [address] Pharmacist Internal Medicine 11/18/23 documented as of this encounter
--- OUTSIDE RECORDS SUMMARY | 2025-06-16 10:47 | XMS_ITS | Encounter Summary ---
Author Organization [employer] Address 75 [facility] 7t [place] [address] Care Team Providers Care Ski Instructor Name Role Phone Bridgette Gandhi MD Primary Care Provider Ramón Bolaños PharmD Unavailable Encounter Details Date Type Department Care Team (Late Contact Info) Description 04/30/2023 Abstract [facility] MEDICINE [address] [place] [address] Bridgette Gandhi MD [address] [place], [place] [phone] Social History Tobacco Use Types Packs/Day Years [...] Visit [facility] ADULT DENTAL [address] [place] [address] Lydia Mac [address] [place] [address] documented as of this encounter Procedures Procedure [...] documented as of this encounter Care Teams Ski Instructor Relationship Specialty Start Date End Date Bridgette Gandhi MD 230 [place] [address] PCP - General Family Medicine 07/01/12 Ramón Bolaños, MollyD [address] [place] [address] Pharmacist Internal Medicine 11/18/23 documented as of this encounter
--- OUTSIDE RECORDS SUMMARY | 2025-06-16 10:47 | XMS_ITS | Encounter Summary ---
Author Organization [employer] Address [address] [facility] [address] 7t [place] [address] Care Team Providers Care Rate Inserter Name Role Phone Bridgette Gandhi MD Primary Care Provider [phone] Ramón Bolaños PharmD Unavailable [phone] Encounter Details Date Type Department Care Team (Late st Contact Info) Description 08/28/2023 Orders Only [facility] MEDICINE 230 [place], [place] [phone] Bridgette Gandhi MD 230 [place], [place] [phone] Social History Tobacco Use Types Packs/Day Years [...] Visit [facility] ADULT DENTAL [address] [place] [address] Lydia Mac [address] [place] [address] documented as of this encounter Visit Diagnoses Not on filedocumented in this encounter Additional Health Concerns Assessment Noted Time PHQ-9 Depression Total Score: 5 09/11/19 23 10:25 AM EST documented as of this encounter Care Teams Rate Inserter Relationship Specialty Start Date End Date Bridgette Gandhi MD [address] [place] [address] PCP - General Family Medicine 07/01/12 Ramón Bolaños, Bradley [address] [place] [address] Pharmacist Internal Medicine 11/18/23 documented as of this encounter
--- OUTSIDE RECORDS SUMMARY | 2025-06-16 10:47 | XMS_ITS | Encounter Summary ---
Author Organization [employer] Address 75 [facility] 7t [place] [address] Care Team Providers Care Reclamation Furnace Operator Name Role Phone Bridgette Gandhi MD Primary Care Provider [phone] Ramón Bolaños PharmD Unavailable [phone] Reason for Visit * Reason Onset Date Comments Referral 08/27/2023 Encounter Details Date Type Department Care Team (Late st Contact Info) Description 08/27/2023 Telephone [facility] MEDICINE 230 [place], [place] [phone] Bridgette Gandhi MD 230 [place], [place] [phone] Referral Social History Tobacco Use Types Packs/Day [...] 08/27/2023 1:13 PM EST TC from pt's daughter/CUT OFF SAW OPERATOR METAL requesting a renewal of Referral Date of original referral: 09/11/23 Location: [facility] (unsure of exact location) Date: 09/03/23 Time: 3:15 Fax: N/A Specialty: Orthopedic documented in this encounter Plan of Treatment Upcoming Encounters Date Type Department Care Team (Late st Contact Info) Description 07/10/2025 1:30 PM EST Office Visit [facility] ADULT DENTAL [address] [place] [address] Lydia Mac [address] [place] [address] documented as of this encounter Visit Diagnoses Not on filedocumented in this encounter Additional Health Concerns Assessment Noted Time PHQ-9 Depression Total Score: 5 09/11/19 23 10:25 AM EST documented as of this encounter Care Teams Reclamation Furnace Operator Relationship Specialty Start Date End Date Bridgette Gandhi MD [address] [place], [place] [phone] PCP - General Family Medicine 07/01/12 Ramón Bolaños, MollyD [address] [place] [address] [phone] Pharmacist Internal Medicine 11/18/23 documented as of this encounter
--- OUTSIDE RECORDS SUMMARY | 2025-06-16 10:47 | XMS_ITS | Encounter Summary ---
Author Organization [employer] Address [address] [facility] [address] 7t [place] [address] Care Team Providers Care Turner Off Name Role Phone Bridgette Gandhi MD Primary Care Provider [phone] Ramón Bolaños PharmD Unavailable [phone] Encounter Details Date Type Department Care Team (Late st Contact Info) Description 09/22/2023 Orders Only [facility] MEDICINE 230 [place], [place] [phone] Bridgette Gandhi MD 230 [place], [place] [phone] Chronic obstructive pulmonary disease, unspecified COPD type [...] 1:30 PM EST Office Visit [facility] ADULT DENTAL [address] [place] [address] Bubba, Lydia 230 [place] [address] documented as of this encounter Visit Diagnoses Diagnosis Chronic obstructive pulmonary disease, unspecified COPD type (CMS/HCC) (HCC)- Primary Obstructive sleep apnea syndrome Obstructive sleep apnea (adult) (pediatric) documented in this encounter Additional Health Concerns Assessment Noted Time PHQ-9 Depression Total Score: 5 09/11/19 23 10:25 AM EST documented as of this encounter Care Teams Turner Off Relationship Specialty Start Date End Date Bridgette Gandhi MD 230 [place] [address] PCP - General Family Medicine 07/01/12 Ramón Bolaños, Bradley [address] [place] [address] Pharmacist Internal Medicine 11/18/23 documented as of this encounter
--- OUTSIDE RECORDS SUMMARY | 2025-06-16 10:47 | XMS_ITS | Encounter Summary ---
Author Organization [employer] Address [address] [facility] [address] 7t [place] [address] Care Team Providers Care Compounder Flavorings Name Role Phone Bridgette Gandhi MD Primary Care Provider [phone] Ramón Bolaños PharmD Unavailable [phone] Encounter Details Date Type Department Care Team (Late st Contact Info) Description 09/04/2023 Orders Only [facility] MEDICINE 230 [place], [place] [phone] Bridgette Gandhi MD 230 [place], [place] [phone] Chronic pain of both knees (Primary Dx) [...] [facility] 230 [place] [address] Bubba, Lydia 230 [place] [address] documented as of this encounter Visit Diagnoses Diagnosis Chronic pain of both knees- Primary documented in this encounter Additional Health Concerns Assessment Noted Time PHQ-9 Depression Total Score: 5 09/11/19 23 10:25 AM EST documented as of this encounter Care Teams Compounder Flavorings Relationship Specialty Start Date End Date Bridgette Gandhi MD 230 [place] [address] PCP - General Family Medicine 07/01/12 Ramón Bolaños, Bradley [address] [place] [address] Pharmacist Internal Medicine 11/18/23 documented as of this encounter
--- OUTSIDE RECORDS SUMMARY | 2025-06-16 10:47 | XMS_ITS | Encounter Summary ---
Author Organization [employer] Address [address] [facility] 7t [place] [address] Care Team Providers Care Marketing Production Coordinator Name Role Phone Bridgette Gandhi MD Primary Care Provider [phone] Ramón Bolaños PharmD Unavailable [phone] Encounter Details Date Type Department Care Team (Late st Contact Info) Description 06/26/2023 Abstract [facility] ADULT DENTAL [address] [place], [place] [phone] Amarjit Foster DDS [address] [place], [place] [phone] Social History Tobacco Use Types Packs/Day Years [...] Description 07/10/2025 1:30 PM EST Office Visit [facility] ADULT DENTAL [address] [place] [address] Lydia Mac 230 [place] [address] documented as of this encounter Visit Diagnoses Not on filedocumented in this encounter Additional Health Concerns Assessment Noted Time PHQ-9 Depression Total Score: 5 09/11/19 23 10:25 AM EST documented as of this encounter Care Teams Marketing Production Coordinator Relationship Specialty Start Date End Date Bridgette Gandhi MD [address] [place] [address] PCP - General Family Medicine 07/01/12 Ramón Bolaños, MollyD [address] [place] [address] Pharmacist Internal Medicine 11/18/23 documented as of this encounter
--- OUTSIDE RECORDS SUMMARY | 2025-06-16 10:47 | XMS_ITS | Encounter Summary ---
Author Organization [employer] Address [address] [place] [address] 7t [place] [address] Care Team Providers Care Vessel Slagman Name Role Phone Bridgette Gandhi MD Primary Care Provider [phone] Ramón Bolaños PharmD Unavailable [phone] Reason for Referral * Consultation (Routine) - Authorized Specialty Diagnoses / Procedures Referred By Contac t Referred To Contact Cardiology Diagnoses Hypertension, unspecified type Venous insufficiency Ascending aorta dilation (CMS/HCC) Bridgette Gandhi MD 230 [place] [address] Phone: tel: fax: [facility] Referral ID Status Reason Start Date Expiration Date Visits Requested Visits Authorized [id number] Authorized Specialty Services Required 04/06/2025 04/06/2026 1 1 Encounter Details Date Type Department Care Team (Late st Contact Info) Description 04/06/2025 Orders Only [facility] MEDICINE 230 [place], [place] [phone] Bridgette Gandhi MD [address] [place], [place] [phone] Hypertension, unspecified type (Primary Dx); Venous insufficiency; [...] Description 07/10/2025 1:30 PM EST Office Visit [facility] ADULT DENTAL [address] [place] [address] Lydia Mac [address] [place] [address] Scheduled Referrals Name Type Priority Associated Diagnoses [...] documented as of this encounter Care Teams Vessel Slagman Relationship Specialty Start Date End Date Bridgette Gandhi MD [address] [place] [address] PCP - General Family Medicine 07/01/12 Ramón Bolaños PharmD [address] [place] [address] Pharmacist Internal Medicine 11/18/23 documented as of this encounter
--- OUTSIDE RECORDS SUMMARY | 2025-06-16 10:47 | XMS_ITS | Encounter Summary ---
Author Organization [employer] Address [address] [facility] [address] 7t [place] [address] Care Team Providers Care Resourcing Consultant Name Role Phone Bridgette Gandhi MD Primary Care Provider [phone] Ramón Bolaños PharmD Unavailable [phone] Encounter Details Date Type Department Care Team (Late st Contact Info) Description 08/22/2024 Abstract [facility] MEDICINE 230 [place] [address] [place] Social History Tobacco Use [...] 1:30 PM EST Office Visit [facility] ADULT DENTAL 230 [place] [address] Bubba, Lydia 230 [place] [address] documented as of this encounter Goals Goal [...] documented as of this encounter Care Teams Resourcing Consultant Relationship Specialty Start Date End Date Bridgette Gandhi MD [address] [place] [address] PCP - General Family Medicine 07/01/12 Ramón Bolaños, Bradley [address] [place] [address] Pharmacist Internal Medicine 11/18/23 documented as of this encounter
== END 2025-06-16 10:42 | disposition home or self-care (01) ==
LOC: HO.PMC 09:38
PROVIDERS: PCP Family Medicine; Visit Provider Registered Nurse Emergency
DX: M54.16 Radiculopathy, lumbar region (principal); M51.369 Other intervertebral disc degeneration, lumbar region without mention of lumbar back pain or lower extremity pain; M25.552 Pain in left hip
CPT/HCPCS: 99213; G2211

== ENCOUNTER → 2025-06-16 09:37 | Outpatient (BNVA) | payer OTHER, SELFPAY | PROVIDERS: PCP Family Medicine; Visit Provider Registered Nurse Emergency | DX: M25.552 Pain in left hip (principal); M54.16 Radiculopathy, lumbar region; G89.29 Other chronic pain; J44.9 Chronic obstructive pulmonary disease, unspecified; G47.33 Obstructive sleep apnea (adult) (pediatric); R06.09 Other forms of dyspnea; Z99.89 Dependence on other enabling machines and devices; Z87.891 Personal history of nicotine dependence | CPT/HCPCS: 99212 ==

== ENCOUNTER 2025-06-16 10:44 | Outpatient (AMB) | payer OTHER, SELFPAY ==
[2025-06-16 10:56] VITALS: BP 122/60; PULSE 58; O2SAT 96; BMI 39.5
--- NOTE | 2025-06-16 10:56 | A.OFFVIS_ITS ---
Vital Signs 06/16/25 10:56 Height 5 ft 6 in Weight 244 lb 11.41 oz BMI 39.5 BP 122/60 Blood Pressure Location Lt brachial Position Sitting Pulse 58 Pulse Source Pulse Oximeter Pulse Oximetry (%) 96 Oxygen Delivery Method Room Air Intake Visit Reasons: COPD Tool Setter Apprentice Required: Yes Tool Setter Apprentice Services: Tool Setter Apprentice Present Tool Setter Apprentice Name: [id number] Allergies Penicillins Allergy (Intermediate, Verified 06/16/25 11:00) RASH Carbapenems Allergy (Unknown, Verified 06/16/25 11:00) Unknown Cephalosporins Allergy (Unknown, Verified 06/16/25 11:00) Unknown enviormental Allergy (Severe, Uncoded 06/16/25 11:00) coughing and sneezing HPI HPI COPD: Details: 79-year-old gentleman, former 30+ pack-year smoker, quit September of 2023 followed for mild COPD. He continues on Anoro and albuterol MDI with good control of his underlying symptoms. His orthopnea has also well controlled on current regimen of torsemide 20 mg daily. He denies recent exacerbations. 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 Father No problems noted. Brother CAD (coronary artery disease) Sister Alzheimer disease Social History Household Members: Other Household Members Other:: 2 roomates Housing: Apartment Are you a primary primary care nurse practitioner to a significant other at home: No Do you presently have visiting nurse or other home services: Yes Alcohol intake: never Patient Tobacco Use Status: Former Tobacco user Cigarette Packs Per Day: 0.5 Cigarettes Per Day: 10.0 Years Smoked: 60 +/- , quit- Oct 12 2023 Review of Systems Const Denies daytime sleepiness, Denies excessive sweating, Denies fatigue, Denies fever(s), Denies lethargy, Denies malaise, Denies night sweats, Denies snoring and Denies weight loss Eyes Denies blurry vision and Denies itchy eyes ENT Denies nasal congestion, Denies post nasal drip, Denies sinus pain, Denies sinus pressure and Denies other ( Thrush) Card Denies chest pain, Denies pedal edema, Denies dyspnea, Denies orthopnea and Denies paroxysmal nocturnal dyspnea Resp Denies cough, Denies hemoptysis, Denies excessive phlegm production, Denies dyspnea, Denies snoring and Denies wheezing GI Denies abdominal pain and Denies heartburn Musc Denies myalgias, Denies arthralgias and Denies joint swelling Skin/Breast Denies rash Neuro Denies memory loss and Denies seizure-like activity Psych Denies abnormal sleep pattern, Denies anxiety and Denies memory loss Endo Denies excessive sweating, Denies fatigue and Denies heat intolerance Wilber/Lymph Denies easy bruising Aller/Immun Denies itchy eyes, Denies seasonal rhinorrhea and Denies wheezing Physical Exam Vital Signs: Last Vital Signs Pulse 58 06/16/25 10:56 BP 122/60 06/16/25 10:56 Pulse Ox 96 06/16/25 10:56 Oxygen Delivery Method Room Air 06/16/25 10:56 BMI result Body Mass Index 39.5 Const General: no acute distress and alert Nutritional Appearance: not obese Orientation/consciousness: Other orientation findings ( oriented) HEENT Head: Yes atraumatic Eyes General: appearance normal, both eyes and all related structures Sclerae: sclerae normal EOM: EOMs intact bilaterally Neck Neck: Yes supple Lymphatic: no lymphadenopathy noted Resp Effort & Inspection: normal respiratory effort and no use of accessory muscles Auscultation: clear to auscultation bilaterally Cardio Rate: regular rate Rhythm: regular rhythm Heart sounds: no gallops, no murmurs and no rubs Skin General skin exam: other ( warm) Extrem General: No clubbing, No cyanosis and Yes edema (Trace bilateral) Assessment & Plan Assessment & Plan (1) COPD (chronic obstructive pulmonary disease): Code(s): J44.9 - Chronic obstructive pulmonary disease, unspecified Category: Medical Plan: Well controlled on current regimen of Anoro and albuterol MDI. Continue current regimen. (2) Obstructive sleep apnea hypopnea, severe: Comment: AHI 50/hr, REM AHI 56/hr, )2 shiloh 73% Code(s): G47.33 - Obstructive sleep apnea (adult) (pediatric) Category: Medical Plan: Controlled on current CPAP therapy. Continue CPAP therapy. (3) DAIGLE (dyspnea on exertion): Code(s): R06.09 - Other forms of dyspnea Category: Medical Plan: Reasonable control on current diuretic regimen of torsemide 20 mg daily. Continue current regimen. Coding Level of Care Code Est Pt Level 4 (78484) Complex EM visit Add On G2211 Diagnoses COPD (chronic obstructive pulmonary disease) J44.9 Obstructive sleep apnea hypopnea, severe G47.33 DAIGLE (dyspnea on exertion) R06.09
== END 2025-06-16 11:16 | disposition home or self-care (01) ==
LOC: HO.HPS 10:44
PROVIDERS: PCP Family Medicine; Visit Provider Internal Medicine Pulmonary Disease
DX: J44.9 Chronic obstructive pulmonary disease, unspecified (principal); G47.33 Obstructive sleep apnea (adult) (pediatric); R06.09 Other forms of dyspnea
CPT/HCPCS: 99214; G2211

== ENCOUNTER 2025-07-25 06:19 | Outpatient (REF) | payer OTHER, SELFPAY ==
--- NOTE | ~2025-07-25 | FL_ITS ---
EXAMINATION: FL GUIDANCE ONLY HISTORY: M51.36 - Other intervertebral disc degeneration, lumbar region COMPARISON: None available. TECHNIQUE: Fluoroscopy time: 42 seconds. Cumulative Dose: 16.90 mGy. DAP: 3620.70 mGycm2 Images: 2. FINDINGS: Fluoroscopic spot films of the lumbar spine demonstrate a needle and contrast material adjacent to the left L3 pedicle. FL/FL guidance in treatment room IMPRESSION: Fluoroscopy during procedure. Please see procedure report for additional information. Electronically signed by: Rich Guevara MD 07/25/2025 01:01 PM REGINA
--- OUTSIDE RECORDS SUMMARY | 2025-07-25 06:22 | XMS_ITS | Encounter Summary ---
Author Organization [employer] Address [address] [facility] 7t [place] [address] Care Team Providers Care Inspector Assemblies And Installations Name Role Phone Bridgette Gandhi MD Primary Care Provider Ramón Bolaños PharmD Unavailable [phone] Encounter Details Date Type Department Care Team (Latest Contact Info) Description 06/20/2022 Abstract [facility] CONVERSIONS Dental, Provider, DDS Social History [...] Care Team (Late st Contact Info) Description 08/21/2025 11:00 AM EST Office Visit [facility] MEDICINE [address] [employer] [place] [employer], [place] [phone] Bridgette Gandhi MD [address] [place], [place] [phone] documented as of this encounter Visit Diagnoses Not on filedocumented in this encounter Care Teams Inspector Assemblies And Installations Relationship Specialty Start Date End Date Bridgette Gandhi MD [address] [place], [place] [phone] PCP - General Family Medicine 07/01/12 Ramón Bolaños, PharmD [address] [place] [address] Pharmacist Internal Medicine 11/18/23 documented as of this encounter
--- OUTSIDE RECORDS SUMMARY | 2025-07-25 06:22 | XMS_ITS | Clinical Summary ---
Author Organization [facility] Address [address] [place], [place] [phone] Phone Care Team Providers Care Melt House Drag Operator Name Role Phone Unknown, Unknown Primary Care [...] Medical Devices Not on file Insurance [facility] MEDICARE REPLACEMENT [place] [address] MEDICARE REPLACEMENT MEDICARE REPLACEMENT [place] [id number] [place] [address] [place] [address] MEDICARE REPLACEMENT MEDICARE REPLACEMENT [facility] MEDICARE REPLACEMENT [facility] MEDICARE REPLACEMENT [facility] MEDICARE REPLACEMENT Care Teams Melt House Drag Operator Relationship Specialty Start Date End Date Unknown, Unknown, PCP - General 05/23/19 Additional Source Comments The information contained in this document represents components of the legal health record. It is not the complete legal health record.[facility]
--- OUTSIDE RECORDS SUMMARY | 2025-07-25 06:22 | XMS_ITS | Encounter Summary ---
Author Organization [employer] Address [address] [place] [address] 7t [place] [address] Care Team Providers Care Wearing Apparel Folder Name Role Phone Bridgette Gandhi MD Primary Care Provider [phone] Ramón Bolaños PharmD Unavailable [phone] Reason for Referral * Consultation (Routine) - Authorized Specialty Diagnoses / Procedures Referred By Contac t Referred To Contact Cardiology Diagnoses Hypertension, unspecified type Venous insufficiency Ascending aorta dilation (CMS/HCC) Bridgette Gandhi MD [address] [place] [address] Phone: tel: fax: [facility] Referral ID Status Reason Start Date Expiration Date Visits Requested Visits Authorized [id number] Authorized Specialty Services Required 04/06/2025 04/06/2026 1 1 Encounter Details Date Type Department Care Team (Late st Contact Info) Description 04/06/2025 Orders Only [facility] MEDICINE 230 [place], [place] [phone] Bridgette Gandhi MD [address] [place], [place] [phone] Hypertension, unspecified type (Primary Dx); Venous insufficiency; [...] Description 08/21/2025 11:00 AM EST Office Visit [facility] MEDICINE [address] [place] [address] Bridgette Gandhi MD 230 [place] [address] Scheduled Referrals Name Type Priority Associated Diagnoses [...] documented as of this encounter Care Teams Wearing Apparel Folder Relationship Specialty Start Date End Date Bridgette Gandhi MD [address] [place] [address] PCP - General Family Medicine 07/01/12 Ramón Bolaños PharmD [address] [place] [address] Pharmacist Internal Medicine 11/18/23 documented as of this encounter
--- OUTSIDE RECORDS SUMMARY | 2025-07-25 06:22 | XMS_ITS | Encounter Summary ---
Author Organization [employer] Address [address] [facility] [address] 7t [place] [address] Care Team Providers Care Main Galley Scullion Name Role Phone Bridgette Gandhi MD Primary Care Provider Ramón Bolaños PharmD Unavailable Encounter Details Date Type Department Care Team (Late st Contact Info) Description 10/09/2022 Orders Only [facility] MEDICINE 230 [place], [place] [phone] Bridgette Gandhi MD 230 [place], [place] [phone] Spinal stenosis of lumbar region with neurogenic [...] Description 08/21/2025 11:00 AM EST Office Visit [facility] MEDICINE [address] [place] [address] Bridgette Gandhi MD [address] [place] [address] documented as of this encounter Visit Diagnoses Diagnosis Spinal stenosis of lumbar region with neurogenic claudication- Primary documented in this encounter Additional Health Concerns Assessment Noted Time PHQ-9 Depression Total Score: 5 09/11/19 23 10:25 AM EST documented as of this encounter Care Teams Main Galley Scullion Relationship Specialty Start Date End Date Bridgette Gandhi MD [address] [place] [address] PCP - General Family Medicine 07/01/12 Ramón Bolaños, MollyD [address] [place] [address] Pharmacist Internal Medicine 11/18/23 documented as of this encounter
--- OUTSIDE RECORDS SUMMARY | 2025-07-25 06:22 | XMS_ITS | Encounter Summary ---
Author Organization [employer] Address [address] [facility] [address] 7t [place] [address] Care Team Providers Care Silk Screen Processor Name Role Phone Bridgette Gandhi MD Primary Care Provider [phone] Ramón Bolaños PharmD Unavailable [phone] Encounter Details Date Type Department Care Team (Late st Contact Info) Description 09/22/2023 Orders Only [facility] MEDICINE 230 [place], [place] [phone] Bridgette Gandhi MD [address] [place], [place] [phone] Chronic obstructive pulmonary disease, unspecified COPD type [...] Description 08/21/2025 11:00 AM EST Office Visit [facility] MEDICINE [address] [place] [address] Bridgette Gandhi MD 230 [place] [address] documented as of this encounter Visit Diagnoses Diagnosis Chronic obstructive pulmonary disease, unspecified COPD type (CMS/HCC) (HCC)- Primary Obstructive sleep apnea syndrome Obstructive sleep apnea (adult) (pediatric) documented in this encounter Additional Health Concerns Assessment Noted Time PHQ-9 Depression Total Score: 5 09/11/19 23 10:25 AM EST documented as of this encounter Care Teams Silk Screen Processor Relationship Specialty Start Date End Date Bridgette Gandhi MD [address] [place] [address] PCP - General Family Medicine 07/01/12 Ramón Bolaños, PharmD [address] [place] [address] Pharmacist Internal Medicine 11/18/23 documented as of this encounter
--- OUTSIDE RECORDS SUMMARY | 2025-07-25 06:22 | XMS_ITS | Encounter Summary ---
Author Organization [employer] Address [address] [facility] [address] [address] 7t [place] [address] Care Team Providers Care Porcelain Enamel Installer Name Role Phone Bridgette Gandhi MD Primary Care Provider [phone] Ramón Bolaños PharmD Unavailable [phone] Encounter Details Date Type Department Care Team (Late st Contact Info) Description 06/26/2023 Abstract [facility] ADULT DENTAL [address] [place], [place] [phone] Amarjit Foster DDS [address] [place], [place] [phone] Social History Tobacco Use Types Packs/Day Years [...] Description 08/21/2025 11:00 AM EST Office Visit [facility] MEDICINE [address] [place] [address] Bridgette Gandhi MD [address] [place] [address] documented as of this encounter Visit Diagnoses Not on filedocumented in this encounter Additional Health Concerns Assessment Noted Time PHQ-9 Depression Total Score: 5 09/11/19 23 10:25 AM EST documented as of this encounter Care Teams Porcelain Enamel Installer Relationship Specialty Start Date End Date Bridgette Gandhi MD [address] [place] [address] PCP - General Family Medicine 07/01/12 Ramón Bolaños, MollyD [address] [place] [address] Pharmacist Internal Medicine 11/18/23 documented as of this encounter
--- OUTSIDE RECORDS SUMMARY | 2025-07-25 06:22 | XMS_ITS | Encounter Summary ---
Author Organization [employer] Address [address] 7[address] [place] [address] Care Team Providers Care Drum Straightener Name Role Phone Bridgette Gandhi MD Primary Care Provider [phone] Ramón Bolaños PharmD Unavailable [phone] Encounter Details Date Type Department Care Team (Late st Contact Info) Description 08/22/2024 Abstract [facility] MED[facility]INE [address] [place] [address] [place] Social History Tobacco Use [...] Description 08/21/2025 11:00 AM EST Office Visit [facility] MED[facility] [address] [place] [address] Bridgette Gandhi MD [address] [place] [address] documented as of this encounter Goals Goal Patient Goal Type Associated Problems Recent Progress Patient-Stated? Author Blood Pressure < 140/90 Blood Pressure 136/72(2024 11:04 AM EDT) No Ramón Bolaños, PharmJameson Hemoglobin A1c < 7 Result Component 7.5( 11:15 AM EDT) No Ramón Bolaños, PharmD documented as of this encounter Procedures [...] documented as of this encounter Care Teams Drum Straightener Relationship Specialty Start Date End Date Bridgette Gandhi MD [address] [place] [address] PCP - General Family Medicine 07/01/12 Ramón Bolaños PharmD [address] [place] [address] Pharmacist Internal Medicine 11/18/23 documented as of this encounter
--- OUTSIDE RECORDS SUMMARY | 2025-07-25 06:22 | XMS_ITS | Encounter Summary ---
Author Organization [employer] Address [address] [facility] [address] 7t [place] [address] Care Team Providers Care Tax Associate Name Role Phone Bridgette Gandhi MD Primary Care Provider Ramón Bolaños PharmD Unavailable [phone] Reason for Visit * Reason Comments Med Refill Encounter Details Date Type Department Care Team (Late st Contact Info) Description 10/22/[address] [facility] MEDICINE [address] [place], [place] [phone] Tamela Drake MD [address] [place], [place] [phone] Dyslipidemia (Primary Dx) Social History Tobacco Use [...] Description 08/21/2025 11:00 AM EST Office Visit [facility] MEDICINE [address] [place] [address] Bridgette Gandhi MD [address] [place] [address] documented as of this encounter Visit Diagnoses Diagnosis Dyslipidemia- Primary Other and unspecified hyperlipidemia documented in this encounter Additional Health Concerns Assessment Noted Time PHQ-9 Depression Total Score: 5 09/11/19 23 10:25 AM EST documented as of this encounter Care Teams Tax Associate Relationship Specialty Start Date End Date Bridgette Gandhi MD [address] [place] [address] PCP - General Family Medicine 07/01/12 Ramón Bolaños, MollyD [address] [place] [address] Pharmacist Internal Medicine 11/18/23 documented as of this encounter
--- OUTSIDE RECORDS SUMMARY | 2025-07-25 06:22 | XMS_ITS | Encounter Summary ---
Demographics Address [address] [facility] [address] [place] [address] Mobile Phone Home Phone Work Phone Preferred Language es Marital Status Restoration Affiliation Unknown Race Other Race Ethnic Group Unknown Author Organization [employer] Address [address] [facility] 7t [place] [address] Care Team Providers Care Confectionery Drops Machine Operator Name Role Phone Bridgette Gandhi MD Primary Care Provider [phone] Ramón Bolaños PharmD Unavailable [phone] Reason for Referral * Consultation (Routine) - Closed Specialty Diagnoses / Procedures Referred By Jj bro Referred To Contact Orthopaedic Surgery Diagnoses Primary osteoarthritis of both hips Primary osteoarthritis of both knees Bridgette Gandhi MD [address] [place] [address] Phone: tel: fax: [facility] [address] [place] [address] Dr [address] [place] [address] Phone: tel: fax: Referral ID Status Reason Start Date Expiration Date V isits Requested Visits Authorized [id number] Closed Specialty Services Required 02/23/2024 02/22/2025 1 1 Encounter Details Date Type Department Care Team (Late st Contact Info) Description 02/23/2024 Orders Only [facility] [address] [place] [address] Bridgette Gandhi MD [address] [place], [place] [phone] Primary osteoarthritis of both hips (Primary Dx); [...] Upcoming Encounters Date Type Department Care Team ([facility] st Contact Info) Description 08/21/2025 11:00 AM EST Office Visit [facility] [address] [place] [address] Bridgette Gandhi MD [address] [place] [address] Scheduled Referrals Name Type Priority Associated Diagnoses [...] documented as of this encounter Care Teams Confectionery Drops Machine Operator Relationship Specialty Start Date End Date Bridgette Gandhi MD [address] [place] [address] PCP - General Family Medicine 07/01/12 Ramón Bolaños, Bradley [address] [place] [address] Pharmacist Internal Medicine 11/18/23 documented as of this encounter
--- OUTSIDE RECORDS SUMMARY | 2025-07-25 06:22 | XMS_ITS | Encounter Summary ---
Author Organization [employer] Address [address] [facility] [address] 7t [place] [address] Care Team Providers Care Willow Analyst Name Role Phone Bridgette Gandhi MD Primary Care Provider [phone] Ramón Bolaños PharmD Unavailable [phone] Encounter Details Date Type Department Care Team (Late st Contact Info) Description 08/28/2023 Orders Only [facility] MED[facility]INE [address] [place], [place] [phone] Bridgette Gandhi MD [address] [place], [place] [phone] Social History Tobacco Use Types Packs/Day Years [...] 11:00 AM EST Office Visit [facility] [address] [place] [address] Bridgette Gandhi MD [address] [place] [address] documented as of this encounter Visit Diagnoses Not on filedocumented in this encounter Additional Health Concerns Assessment Noted Time PHQ-9 Depression Total Score: 5 09/11/19 23 10:25 AM EST documented as of this encounter Care Teams Willow Analyst Relationship Specialty Start Date End Date Bridgette Gandhi MD [address] [place] [address] PCP - General Family Medicine 07/01/12 Ramón Bolaños, Bradley [address] [place] [address] Pharmacist Internal Medicine 11/18/23 documented as of this encounter
--- OUTSIDE RECORDS SUMMARY | 2025-07-25 06:22 | XMS_ITS ---
Author Name [employer] Address [address] [place] [address] Phone [phone] [facility] Care Team Providers Care Bay Stocker Name Role Phone Qi Waddell Unavailable [phone] ROSENEENA VELEZO Unavailable [phone] Concepción Mcrae Unavailable [phone] Unavailable Unavailable Unavailable Reason for Referral Not [...] 2022-03-10 No Data Available [place] 0.65 % Solution USE 1-2 SPRAYS IN [...] persistent NOLEN< blurry vision)07/25/2024:Follows up with PCP, Drying Tumbler Operator, last visit 2 weeks ago.Taking: amLODIPine [...] ophthalmology every 3-6 months 07/25/2024:Follows up with Multi Purpose Machine Operator.Continues using: Latanoprost drops.Denies any acute complaint. [...] likely not be covered by health plan. [facility] cc info sent to member and MAILING SPECIALIST. Advised to f/u with recliner request during 07/27/24 f/u visit with PCP, as may need PT/OT eval. Loose stools Active 2025-05-18 N/A StableReport s intermittent loose stoolDietary and lifestyle interventions [facility] medications - Imodium if diarrhea developsContact CB if having change in BM and continue with PCP. Encounters Encounters Type Facility Date of Service Diagnosis/Co mplaint New patient,40-59min; chronic exacerbation, 2 stable chronic or 1 acute illness add add modifier 95 for video (do not use for phone, instead use 96282-83) [facility] Type 2 diabetes mellitus wit h diabetic neuropathy, unspecifiedHypertensive heart disease with heart failureHeart failure, unspecifiedMorbid (severe) obesity due to excess caloriesMajor depressive disorder, recurrent, mildChronic obstructive pulmonary disease, unspecifiedOther amnesiaUnspecified glaucomaBody mass index (bmi) 39.0-39.9, adult New patient,40-59min; chronic exacerbation, 2 stable chronic or 1 acute illness add add modifier 95 for video (do not use for phone, instead use 98187-58) [facility] [place] New patient,40-59min; chronic exacerbation, 2 stable chronic or 1 acute illness add add modifier 95 for video (do not use for phone, instead use 86577-38) [facility] [place] New patient,40-59min; chronic exacerbation, 2 stable chronic or 1 acute illness add add modifier 95 for video (do not use for phone, instead use 15607-61) [facility] [place]2022 New patient,40-59min; chronic exacerbation, 2 stable chronic or 1 acute illness add add modifier 95 for video (do not use for phone, instead use 01027-98) [facility] [place]2022 New patient,40-59min; chronic exacerbation, 2 stable chronic or 1 acute illness add add modifier 95 for video (do not use for phone, instead use 88150-80) [facility] [place]/2022 New patient,40-59min; chronic exacerbation, 2 stable chronic or 1 acute illness add add modifier 95 for video (do not use for phone, instead use 33708-37) [facility] [place]/2022 New patient,40-59min; chronic exacerbation, 2 stable chronic or 1 acute illness add add modifier 95 for video (do not use for phone, instead use 87528-67) [facility] [place]/2022 New patient,40-59min; chronic exacerbation, 2 stable chronic or 1 acute illness add add modifier 95 for video (do not use for phone, instead use 76564-73) [facility] [place]28/2022 No Data Available [facility] [place] 10/29/2022 Type 2 diabetes mellitus wit h diabetic neuropathy, unspecifiedMorbid (severe) obesity due to excess caloriesMajor depressive disorder, recurrent, mildHeart failure, unspecifiedHypertensive heart disease with heart failureChronic obstructive pulmonary disease, unspecifiedOther amnesiaUnspecified glaucoma No Data Available [facility] [place] 10/29/2022 No Data Available [facility] [place] 10/29/2022 Estab. patient 30-39min; chronic exacerbation, 2 stable chronic or 1 acute illness add add modifier 95 for video, (do not use for phone, instead use 42687-81) [facility] [place]/27/2023 Type 2 diabetes mellitus wit h [...] (do not use for phone, instead use 61005-72) [facility] [place] 10/27/2023 Estab. patient 30-39min; chronic exacerbation, 2 stable chronic or 1 acute illness add add modifier 95 for video, (do not use for phone, instead use 94023-74) [facility] [place] 10/27/2023 Estab. patient 30-39min; chronic exacerbation, 2 stable chronic or 1 acute illness add add modifier 95 for video, (do not use for phone, instead use 25238-42) [facility] [place] 10[place]/2023 Estab. patient 30-39min; chronic exacerbation, 2 stable chronic or 1 acute illness add add modifier 95 for video, (do not use for phone, instead use 33887-17) [facility]20[place] Estab. patient 30-39min; chronic exacerbation, 2 stable chronic or 1 acute illness add add modifier 95 for video, (do not use for phone, instead use 14384-56) [facility] [place]2023 Estab. patient 30-39min; chronic exacerbation, 2 stable chronic or 1 acute illness add add modifier 95 for video, (do not use for phone, instead use 94345-03) [facility] [place] 10/27/2023 Estab. patient 30-39min; chronic exacerbation, 2 stable chronic or 1 acute illness add add modifier 95 for video, (do not use for phone, instead use 30976-96) [facility] [place] 10/27/2023 Estab. patient 30-39min; chronic exacerbation, 2 stable chronic or 1 acute illness add add modifier 95 for video, (do not use for phone, instead use 65275-91) [facility] [place] 10[place]/2023 Estab. patient 30-39min; chronic exacerbation, 2 stable chronic or 1 acute illness add add modifier 95 for video, (do not use for phone, instead use 74115-95) [facility] [place] 10/[place]/2023 Estab. patient 20-29min; 1 stable chronic or 2 minor; add add modifier 95 for video, modifier 93 for phone [facility] 05/[place]/2024 Other chronic painOther prob lems related to medical facilities and other health care Estab. patient 20-29min; 1 stable chronic or 2 minor; add add modifier 95 for video, modifier 93 for phone [facility] [place] 05/30/20[place] Estab. patient 20-29min; 1 stable chronic or 2 minor; add add modifier 95 for video, modifier 93 for phone [facility] [place] 05/30/2024 Estab. patient 20-29min; 1 stable chronic or 2 minor; add add modifier 95 for video, modifier 93 for phone [facility] [place] 05/30/2024 Estab. patient 20-29min; 1 stable chronic or 2 minor; add add modifier 95 for video, modifier 93 for phone [facility] [place] 05/30/2024 Estab. patient 20-29min; 1 stable chronic or 2 minor; add add modifier 95 for video, modifier 93 for phone [facility] [place] 05/30/2024 Estab. patient 20-29min; 1 stable chronic or 2 minor; add add modifier 95 for video, modifier 93 for phone [facility] [place] 05/30/2024 No Data Available [facility] [place] 07/25/2024 Hypertensive heart disease w ith heart failureHeart failure, unspecifiedSecondary hyperaldosteronismChronic obstructive pulmonary disease, unspecifiedUnspecified glaucomaOther problems related to medical facilities and other health careOther chronic pain No Data Available [facility] [place] 07/25/2024 No Data Available [facility] [place] 07/25/2024 Estab. patient 10-29min; 1 minor problem; add add modifier 95 for video, modifier 93 for phone [facility] [place] 05/18/2025 Type 2 diabetes mellitus wit h [...] 95 for video, modifier 93 for phone [facility] [place] 05/18/2025 Estab. patient 10-29min; 1 minor [...] Current Smoking Status Current every day smoker 2025-07-25 Sex Male History of Procedures Procedures Service Procedure code Service date Servicing provider Phone# New patient,40-59min; chronic exacerbation, 2 stable chronic or 1 acute illness add add modifier 95 for video (do not use for phone, instead use 79041-95) [id number] 2022-10-28 No Data Available No Data Availa [...] No Data Nancy ilable No Data Available [id number] 2022-10-29 No Data Available No Data Available [...] (do not use for phone, instead use 20198-46) [id number] 2023-10-27 No Data Available No Data Availa [...] 1125F 2023-10-27 No Data Available No Data Nnacy ilable No Data Available [id number] 2023-10-27 No Data Available No Data Available Estab. patient 20-29min; 1 stable chronic or 2 minor; add add modifier 95 for video, modifier 93 for phone 05127 2024-05-30 No Data Available No Data Availa [...] le No Data Available No Data Available [id number] 2024-07-25 No Data Available No Data Available Medication List Documented (1159F) 1159F 2024-07-25 No Data Available No Data Nancy ilable Pain Assessment - Pain Documented on a Pain Scale (1125F) 1125F 2024-07-25 No Data Available No Data Nancy ilable Estab. patient 10-29min; 1 minor problem; add add modifier 95 for video, modifier 93 for phone 59322 2025-05-18 No Data Available No Data Availa [...] persistent NOLEN< blurry vision)10/27/2023:Follows up with PCP, Drying Tumbler Operator, last visit 2 weeks ago.BP: 119/68. [...] ophthalmology every 3-6 months 10/27/2023:Follows up with Multi Purpose Machine Operator.Continues using: Latanoprost drops.Denies any acute complaint.Reports [...] (no modifier 95)Pain Assessment - Pain Documented (9923F)Continue to see PCP. Follow-up with [facility] as needed for any acute or disease education needs that may arise 09/03.StableLisinopril, Furosemide Avg BP: 120s/60sContinue taking medications as prescribed, continue monitoring BP, discussed low salt diet, exercise as tolerable, and lifestyle interventions. Contact us if developing emergent HTN s/sx (eg. palpitations, persistent NOLEN< blurry vision)07/25/2024:Follows up with PCP, Drying Tumbler Operator, last visit 2 weeks ago.Taking: amLODIPine [...] ophthalmology every 3-6 months 07/25/2024:Follows up with Multi Purpose Machine Operator.Continues using: Latanoprost drops.Denies any acute complaint.PAIN [...] likely not be covered by health plan. [facility] cc info sent to member and MAILING SPECIALIST. Advised to f/u with recliner request during [...] persistent NOLEN< blurry vision)07/25/2024:Follows up with PCP, Drying Tumbler Operator, last visit 2 weeks ago.Taking: amLODIPine [...] ophthalmology every 3-6 months 07/25/2024:Follows up with Multi Purpose Machine Operator.Continues using: Latanoprost drops.Denies any acute complaint.StableReports chronic [...] likely not be covered by health plan. [facility] cc info sent to member and MAILING SPECIALIST. Advised to f/u with recliner request during [...] questions or concerns. D[facility]ed how [facility] or [facility]. CB 24/7 [...] okDo you have a Durable Power of Director Of Technology for Healthcare, or Healthcare Proxy Or Guardianship? Yes, preferred proxy but not named POAIf so, Who? daughter, Senait Hernandez you have a written Advance Directive? Has no formal [id number] : AD or surrogate was documented in [...]
--- OUTSIDE RECORDS SUMMARY | 2025-07-25 06:22 | XMS_ITS | Encounter Summary ---
Author Organization [employer] Address [address]t [place] [address] Care Team Providers Care Filler Operator Name Role Phone Bridgette Gandhi MD Primary Care Provider [phone] Ramón Bolaños PharmD Unavailable [phone] Encounter Details Date Type Department Care Team (Late st Contact Info) Description 02/17/2025 Orders Only [facility] MEDICINE [address] [place], [place] [phone] Bridgette Gandhi MD [address] [place], [place] [phone] Osteoporosis screening (Primary Dx) Social History Tobacco [...] Description 08/21/2025 11:00 AM EST Office Visit [facility] MED[facility] [address] [place] [address] Bridgette Gandhi MD [address] [place] [address] documented as of this encounter Goals Goal [...] documented as of this encounter Care Teams Filler Operator Relationship Specialty Start Date End Date Bridgette Gandhi MD [address] [place] [address] PCP - General Family Medicine 07/01/12 Ramón Bolaños, MollyD [address] [place] [address] Pharmacist Internal Medicine 11/18/23 documented as of this encounter
--- OUTSIDE RECORDS SUMMARY | 2025-07-25 06:22 | XMS_ITS | Encounter Summary ---
Author Organization [employer] [facility] Address [address] [place] [address] 7t [place] [address] Care Team Providers Care High Speed Printer Operator Name Role Phone Bridgette Gandhi MD Primary Care Provider Ramón Bolaños PharmD Unavailable [phone] Encounter Details Date Type Department Care Team (Late st Contact Info) Description 07/30/2022 Abstract [facility] ADULT DENTAL [address] [place] [address] Bubba, Lydia [address] [place] [address] Social History Tobacco Use Types Packs/Day Years [...] Description 08/21/2025 11:00 AM EST Office Visit [facility] MEDICINE [address] [place], [place] [phone] Bridgette Gandhi MD [address] [place] [address] documented as of this encounter Procedures Procedure [...] on filedocumented in this encounter Care Teams High Speed Printer Operator Relationship Specialty Start Date End Date Bridgette Gandhi MD [address] [place] [address] PCP - General Family Medicine 07/01/12 Ramón Bolaños PharmD [address] [place] [address] Pharmacist Internal Medicine 11/18/23 documented as of this encounter
--- OUTSIDE RECORDS SUMMARY | 2025-07-25 06:22 | XMS_ITS | Encounter Summary ---
Author Organization [employer] Address [address] [place] [address] Care Team Providers Care Electronic Industrial Controls Mechanic Name Role Phone Bridgette Gandhi MD Primary Care Provider [phone] Ramón Bolaños PharmD Unavailable [phone] Encounter Details Date Type Department Care Team (Late st Contact Info) Description 09/04/2023 Orders Only [facility] MEDICINE [address] [place], [place] [phone] Bridgette Gandhi MD [address] [place], [place] [phone] Chronic pain of both knees (Primary Dx) [...] 08/21/2025 11:00 AM EST Office Visit [facility] MEDICINE [address] [place] [address] Bridgette Gandhi MD [address] [place] [address] documented as of this encounter Visit Diagnoses Diagnosis Chronic pain of both knees- Primary documented in this encounter Additional Health Concerns Assessment Noted Time PHQ-9 Depression Total Score: 5 09/11/19 23 10:25 AM EST documented as of this encounter Care Teams Electronic Industrial Controls Mechanic Relationship Specialty Start Date End Date Bridgette Gandhi MD [address] [place] [address] PCP - General Family Medicine 07/01/12 Ramón Bolaños, MollyD [address] [place] [address] Pharmacist Internal Medicine 11/18/23 documented as of this encounter
--- OUTSIDE RECORDS SUMMARY | 2025-07-25 06:22 | XMS_ITS | Encounter Summary ---
Author Organization [employer] Address [address] [facility] 7t [place] [address] Care Team Providers Care Mold Press Operator Name Role Phone Bridgette Gandhi MD Primary Care Provider Ramón Bolaños PharmD Unavailable Encounter Details Date Type Department Care Team (Late Contact Info) Description 04/30/2023 Abstract [facility] MEDICINE [address] [place] [phone] Bridgette Gandhi MD [address] [place] [address] [phone] Social History Tobacco Use Types Packs/Day Years [...] Department Care Team (Late Contact Info) Description 08/21/2025 11:00 AM EST Office Visit [facility] MED[facility]INE [address] [place] [address] Bridgette Gandhi MD [address] [place] [address] documented as of this encounter Procedures Procedure [...] documented as of this encounter Care Teams Mold Press Operator Relationship Specialty Start Date End Date Bridgette Gandhi MD [address] [place] [address] PCP - General Family Medicine 07/01/12 Ramón Bolaños, PharmD [address] [place] [address] Pharmacist Internal Medicine 11/18/23 documented as of this encounter
--- OUTSIDE RECORDS SUMMARY | 2025-07-25 06:22 | XMS_ITS | Encounter Summary ---
Author Organization [employer] Address [address] [facility] 7t [place] [address] Care Team Providers Care Manager Credit Risk Name Role Phone Bridgette Gandhi MD Primary Care Provider [phone] Ramón Bolaños PharmD Unavailable [phone] Reason for Visit * Reason Comments Med Refill Encounter Details Date Type Department Care Team (Late st Contact Info) Description 03/10/2024 Refill [facility] MEDICINE [address] [place], [place] [phone] Bridgette Gandhi MD [address] [place], [place] [phone] Social History Tobacco Use Types Packs/Day Years [...] Description 08/21/2025 11:00 AM EST Office Visit [facility] MEDICINE [address] [place] [address] Bridgette Gandhi MD [address] [place] [address] documented as of this encounter Goals Goal [...] as of this encounter Care Teams Manager Credit Risk Relationship Specialty Start Date End Date Bridgette Gandhi MD [address] [place] [phone] PCP - General Family Medicine 07/01/12 Ramón Bolaños, PharmD [address] [place] [address] [place] [address] Pharmacist Internal Medicine 11/18/23 documented as of this encounter
--- OUTSIDE RECORDS SUMMARY | 2025-07-25 06:22 | XMS_ITS | Encounter Summary ---
Author Organization [employer] Address 75 [facility] 7t [place] [address] Care Team Providers Care Supervisory Forester Name Role Phone Bridgette Gandhi MD Primary Care Provider Ramón Bolaños PharmD Unavailable [phone] Reason for Visit * Reason Onset Date Comments ER Follow-up 05/26/2024 Nurse Triage 05/26/2024 Encounter Details Date Type Department Care Team (Late st Contact Info) Description 05/26/2024 Telephone [facility] MEDICINE [address] [place], [place] [phone] Bridgette Gandhi MD [address] [place], [place] [phone] ER Follow-up; Nurse Triage Social History Tobacco [...] encounter Miscellaneous Notes * Telephone Encounter - aDnii Hope RN - 05/26/2024 2:31 PM EDT Please assist with obtaining discharge summary for [facility] ED visit on 05/25/24 for provider review prior to upcoming appointment. Future Appointments Date Time Provider Department Center 05/27/2024 8:45 AM Jeremias Gong MD [facility] 01/11/2025 10:00 AM Susy Dixon PharmD [facility] * Telephone Encounter - Danii Hope [...] Center 05/27/2024 8:45 AM Jeremias Gong MD [facility] 01/11/2025 10:00 AM Susy Dixon PharmD MEDICINE [facility] Insurance verified as active per Real [...] ED visit on : Date: 05/25/24 Hospital: [facility] Seen for: Severe hip and thigh [...] 08/21/2025 11:00 AM EST Office Visit [facility] MEDICINE [address] [place] [address] Bridgette Gandhi MD [address] [place] [address] documented as of this encounter Goals Goal Patient Goal Type Associated Problems Recent Progress Patient-Stated? Author Blood Pressure < 140/90 Blood Pressure 136/72(2024 11:04 AM EDT) Ramón Martinez, Bradley Hemoglobin A1c < 7 Result Component 7.5( 5 11:15 AM EDT) No Ramón Bolaños, PharmD documented as of this encounter Visit Diagnoses Not on filedocumented in this encounter Additional Health Concerns Assessment Noted Time PHQ-9 Depression Total Score: 0 04/07/20 24 11:45 AM EDT documented as of this encounter Care Teams Supervisory Forester Relationship Specialty Start Date End Date Bridgette Gandhi MD [address] [place] [address] PCP - General Family Medicine 07/01/12 Ramón Bolaños, MollyD [address] [place] [address] Pharmacist Internal Medicine 11/18/23 documented as of this encounter
--- OUTSIDE RECORDS SUMMARY | 2025-07-25 06:22 | XMS_ITS | Encounter Summary ---
Author Organization [employer] Address [address] [facility] 7t [place] [address] Care Team Providers Care Tile Conduit Layer Name Role Phone Bridgette Gandhi MD Primary Care Provider [phone] Ramón Bolaños PharmD Unavailable [phone] Reason for Visit * Reason Onset Date Comments Referral 08/27/2023 Encounter Details Date Type Department Care Team (Late st Contact Info) Description 08/27/2023 Telephone [facility] MEDICINE [address] [place], [place] [phone] Bridgette Gandhi MD [address] [place], [place] [phone] Referral Social History Tobacco Use Types Packs/Day [...] 08/27/2023 1:13 PM EST TC from pt's daughter/POKER PROP PLAYER requesting a renewal of Referral Date of original referral: 09/11/23 Location: [facility] (unsure of exact location) Date: 09/03/23 Time: 3:15 Fax: N/A Specialty: Orthopedic documented in this encounter Plan of Treatment Upcoming Encounters Date Type Department Care Team (Late st Contact Info) Description 08/21/2025 11:00 AM EST Office Visit [facility] MEDICINE [address] [place] [address] Bridgette Gandhi MD [address] [place] [address] documented as of this encounter Visit Diagnoses Not on filedocumented in this encounter Additional Health Concerns Assessment Noted Time PHQ-9 Depression Total Score: 5 09/11/19 23 10:25 AM EST documented as of this encounter Care Teams Tile Conduit Layer Relationship Specialty Start Date End Date Bridgette Gandhi MD [address] [place] [address] [phone] PCP - General Family Medicine 07/01/12 Ramón Bolaños, MollyD [address] [place] [address] Pharmacist Internal Medicine 11/18/23 documented as of this encounter
--- OUTSIDE RECORDS SUMMARY | 2025-07-25 06:22 | XMS_ITS | Encounter Summary ---
Author Organization [facility] Address [address] [facility] [address] [place] [phone] Phone Care Team Providers Care Intake Nurse Name Role Phone Unknown, Unknown Primary Care Provider Terrence montano Encounter Details Date Type Department Care Team (Late st Contact Info) Description 05/30/2019 Ancillary Orders [facility] [address] [place] [address] [place] [address] Sylvester Hdez, DO [address] [place] [address] Bradycardia Social History Tobacco Use Types Packs/Day [...] dysrhythmias documented in this encounter Care Teams Intake Nurse Relationship Specialty Start Date End Date Unknown, Unknown, PCP - General 05/23/19 documented as of this encounter Additional Source Comments The information contained in this document represents components of the legal health record. It is not the complete legal health record.[facility]
--- OUTSIDE RECORDS SUMMARY | 2025-07-25 06:22 | XMS_ITS | Encounter Summary ---
Author Organization [employer] Address 75 [facility] 7t [place] [address] Care Team Providers Care Consumer Affairs Specialist Name Role Phone Bridgette Gandhi MD Primary Care Provider [phone] Ramón Bolaños PharmD Unavailable [phone] Encounter Details Date Type Department Care Team (Late st Contact Info) Description 06/24/[address] [facility] MEDICINE [address] [place], [place] [phone] Bridgette Gandhi MD [address] [place], [place] [phone] Social History Tobacco Use Types Packs/Day Years [...] the past 12 months, has t he [employer]ent[employer], gas, oil or water company threatened to [...] Description 08/21/2025 11:00 AM EST Office Visit [facility] MEDICINE [address] [place] [address] Bridgette Gandhi MD [address] [place] [address] documented as of this encounter Goals Goal [...] documented as of this encounter Care Teams Consumer Affairs Specialist Relationship Specialty Start Date End Date Bridgette Gandhi MD [address] [place] [address] PCP - General Family Medicine 07/01/12 Ramón Bolaños, MollyD [address] [place] [phone] Pharmacist Internal Medicine 11/18/23 documented as of this encounter
--- OUTSIDE RECORDS SUMMARY | 2025-07-25 06:22 | XMS_ITS | Encounter Summary ---
Author Organization [employer] Address [address] [facility] [address] 7t [place] [address] Care Team Providers Care Coat Agent Name Role Phone Bridgette Gandhi MD Primary Care Provider [phone] Ramón Bolaños PharmD Unavailable [phone] Reason for Visit * Reason Comments Med Refill Encounter Details Date Type Department Care Team (Late st Contact Info) Description 06/07/2023 Refill [facility] [address] [place], [place] [phone] Bridgette Gandhi MD [address] [place], [place] [phone] Social History Tobacco Use Types Packs/Day Years [...] 11:00 AM EST Office Visit [facility] MED[facility] [address] [place] [address] Bridgette Gandhi MD [address] [place] [address] documented as of this encounter Visit Diagnoses Not on filedocumented in this encounter Additional Health Concerns Assessment Noted Time PHQ-9 Depression Total Score: 5 09/11/19 23 10:25 AM EST documented as of this encounter Care Teams Coat Agent Relationship Specialty Start Date End Date Bridgette Gandhi MD [address] [place] [address] PCP - General Family Medicine 07/01/12 Ramón Bolaños, MollyD [address] [place] [phone] Pharmacist Internal Medicine 11/18/23 documented as of this encounter
--- OUTSIDE RECORDS SUMMARY | 2025-07-25 06:22 | XMS_ITS | Encounter Summary ---
Author Organization [employer] Address 75 [facility] 7t [place] [address] Care Team Providers Care Vacuum Cleaner Repair Person Name Role Phone Bridgette Gandhi MD Primary Care Provider [phone] Ramón Bolaños PharmD Unavailable [phone] Reason for Visit * Reason Onset Date Comments Medication Question 06/24/2024 Encounter Details Date Type Department Care Team (Late st Contact Info) Description 06/24/2024 Telephone [facility] MEDICINE [address] [place], [place] [phone] Bridgette Gandhi MD [address] [place], [place] [phone] Medication Question Social History Tobacco Use Types [...] broke. If any questions contact pt at [phone] documented in this encounter Plan of Treatment Upcoming Encounters Date Type Department Care Team (Late st Contact Info) Description 08/21/2025 11:00 AM EST Office Visit [facility] MEDICINE [address] [place] [address] Bridgette Gandhi MD [address] [place], [place] [phone] documented as of this encounter Goals Goal [...] documented as of this encounter Care Teams Vacuum Cleaner Repair Person Relationship Specialty Start Date End Date Bridgette Gandhi MD [address] [place] [address] PCP - General Family Medicine 07/01/12 Ramón Bolaños PharmD [address] [place] [address] Pharmacist Internal Medicine 11/18/23 documented as of this encounter
--- OUTSIDE RECORDS SUMMARY | 2025-07-25 06:22 | XMS_ITS | Clinical Summary ---
Author Organization [employer] Address [address] [place] [address] 7[address] [place] [address] Care Team Providers Care Product Marketing Executive Name Role Phone Bridgette Fagan MD Primary Care Provider [phone] Ramón Bolaños PharmD Unavailable [phone] Allergies Active Allergy Reactions Criticality Noted Date [...] mL 12 3 Active Deep Sea Nasal [place] 0.65 % nasal spray USE 1-2 SPRAYS [...] occurs) 4 Active Lancets (OneTouch Delica Plus [id number]) miscIndications:T ype 2 diabetes mellitus without complications [...] DAILY IN THE MORNING 16 g 2 07/24/2025 1:17 PM EST 5 Active finasteride (Proscar) 5 MG tablet [...] check BS twice daily 100 each 11 07/24/2025 1:18 PM EST 5 05/23/20 26 Active Accu-Chek Softclix Lancets lancets Use as instructed 100 each 11 07/24/2025 1:17 PM EST 5 05/23/20 26 Active Active Problems Problem Noted Date Diagnosed Date Odontalgia 08/24/2024 Lower urinary tract symptoms (LUTS) 08/04/2024 Bladder stones 08/04/2024 Assessment & Plan (11/04/2024 6:10 AM EDT): - following with [facility] urology, last seen on 09/26/24 - continue adequate hydration - s/p bladder stone removal on 09/13/24 Assessment & Plan (08/25/2024 2:37 PM EST): - following with [facility] urology, last seen on 07/03/24 for cystoscopy - continue adequate hydration - scheduled for bladder stone removal with Dr. Ayala Assessment & Plan (08/11/2024 6:19 AM EST): - following with [facility] urology, last seen on 07/03/24 for cystoscopy -recommended adequate hydration and following plan per urologist Fractured dental taoism with loss of materi al 08/01/2024 Caries [...] aorta measuring 4.00 cm - Followed by Sales And Catering Coordinator, monitor with echo every 6-12 months - Continue BP management - Referred to [facility] cardiology per patient's family's request since [facility] moved to [place] Assessment & Plan (11/04/2024 6:07 AM EDT): - 11/26/23 Echo showed mild dilatation of the ascending aorta measuring 4.00 cm - Followed by Sales And Catering Coordinator, monitor with echo every 6-12 months - Continue BP management Assessment & Plan (04/07/2024 11:49 AM EDT): - 11/26/23 Echo showed mild dilatation of the ascending aorta measuring 4.00 cm - Followed by Sales And Catering Coordinator, monitor with echo every 6-12 months - Continue BP management Assessment & Plan (01/04/2024 11:35 AM EDT): - 11/26/23 Echo showed mild dilatation of the ascending aorta measuring 4.00 cm - Followed by Sales And Catering Coordinator, monitor with echo every 6-12 months - Continue BP management Periodic limb movement disorder (PLMD) Assessment & Plan (05/15/2025 7:03 AM EDT): - Noted on his last sleep study - Previously seeing [facility] neurology / sleep medicine clinic. Reconnect care. [...] MRI on 04/14/23: mild chronic ischemic microangiopathy; [id number] generalized diffuse supratentorial and cerebellar vermian parenchymal [...] MRI on 04/14/23: mild chronic ischemic microangiopathy; [id number] generalized diffuse supratentorial and cerebellar vermian parenchymal [...] Plan (11/04/2023 12:40 PM EDT): -Seen by [facility] provider in Apr 2021. Recommended to continue conservative management of compression stocking, DASH diet, and leg elevation. Discontinued Diltiazem due to possible side effects. -possible venous ablation -06/02/23 venous study showed b/l venous insufficiency. -recommended to discuss with his dictaphone transcriber and vascular specialist at [facility] for other treatment options, if appropriate -discontinued amlodipine and hydralazine recently - continue torsemide Assessment & Plan (08/14/2023 11:15 AM EST): -Seen by [facility] provider in Apr 2021. Recommended to continue conservative management of compression stocking, DASH diet, and leg elevation. Discontinued Diltiazem due to possible side effects. -possible venous ablation -06/02/23 venous study showed b/l venous insufficiency. -recommended to discuss with his dictaphone transcriber and vascular specialist at [facility] for other treatment options, if appropriate Assessment & Plan (05/11/2023 8:29 AM EDT): -Seen by [facility] provider in Apr 2021. Recommended to continue conservative management of compression stocking, DASH diet, and leg elevation. Discontinued Diltiazem due to possible side effects. -possible venous ablation -schedule venous study Assessment & Plan (2022 9:36 AM EST): -Seen by [facility] provider in Apr 2021. Recommended to continue conservative management of compression stocking, DASH diet, and leg elevation. Discontinued Diltiazem due to possible side effects. -possible venous ablation Lumbar radiculopathy 2022 Assessment & Plan (05/15/2025 7:07 AM EDT): - last evaluated by china painter in March 2025 - last injection [...] APAP and diclofenac topical Referred back to [facility] Pain management Discussed with him and patient [...] Tylenol prn - Following with Pain management, [facility] - last injection treatment left L3-L4 transforaminal epidural steroid injection for lumbar radiculopathy and lumbar degenerative disc disease in February 2025 - Previously tried PT; declined further PT, but agreed to see Dr. Hoang - MRI on 09/29/22 showing spinal stenosis with compression of the Exiting right L5 nerve root. 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, [...] to pt's questionable adherence - co-managed with dictaphone transcriber, shock absorption floor layer, verification lead, and pharmacist - 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, [...] to pt's questionable adherence - comanaged with dictaphone transcriber, shock absorption floor layer, verification lead, and pharmacist - 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, [...] to pt's questionable adherence - comanaged with dictaphone transcriber, shock absorption floor layer, verification lead, and pharmacist - 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, [...] to pt's questionable adherence - comanaged with dictaphone transcriber, shock absorption floor layer, and pharmacist - check primary aldosteronism; may [...] to pt's questionable adherence - comanaged with dictaphone transcriber, shock absorption floor layer, and pharmacist - check primary aldosteronism; may [...] to pt's questionable adherence - comanaged with dictaphone transcriber, shock absorption floor layer, and pharmacist - check primary aldosteronism; may [...] to pt's questionable adherence - comanaged with dictaphone transcriber, verification lead, and pharmacist -?24-hr ambulatory BP monitor result [...] 2024, treated with azithromycin. - Restarted seeing [facility] Pulmonology providers. Seen by Dr. Castillo on [...] the ascending aorta measuring 4.00 cm. Seeing [facility] Pulmonology Dr. Castillo last on 06/20/24, He [...] 2024, treated with azithromycin. - Restarted seeing [facility] Pulmonology providers. Seen by Dr. Castillo on [...] 2024, treated with azithromycin. - Restarted seeing [facility] Pulmonology providers. Seen by Dr. Castillo on [...] 2024, treated with azithromycin. - Restarted seeing [facility] Pulmonology providers. Seen by Dr. Castillo on [...] received prednisone and azithromycin. - Restarted seeing [facility] Pulmonology providers. Seen by Dr. Castillo on [...] received prednisone and azithromycin. - Restarted seeing [facility] Pulmonology providers. Seen by Dr. Castillo on [...] received prednisone and azithromycin. - Restarted seeing [facility] Pulmonology providers. Last seen by Dr. Castillo [...] PLAN FOR COPD (CHRONIC OBSTRUCTIVE PULMONARY DISEASE) ([facility]) WRITTEN ON 08/13/2023 4:56 AM BY BRIDGETTE FAGAN MD Last exacerbation due to CAP in Aug 2017 Following with [facility] pulmonology, Dr. Cruz Continue Advair as maintenance. [...] PLAN FOR COPD (CHRONIC OBSTRUCTIVE PULMONARY DISEASE) ([facility]) WRITTEN ON 05/11/2023 8:27 AM BY BRIDGETTE FAGAN MD Last exacerbation due to CAP in Aug 2017 Following with [facility] pulmonology, Dr. Cruz Continue Advair as maintenance. [...] to CAP in Aug 2017 Following with [facility] pulmonology, Dr. Cruz Continue Advair as maintenance. [...] -Restarted auto-PAP in 2019 -Currently followed by [facility] sleep clinic, last appointment in May 2024, auto-PAP 8-20 cm H2O -Continue current setting -Work on lifestyle modifications Assessment & Plan (02/17/2025 9:17 AM EDT): -Last sleep study on 07/22/2018. Dx SHANON -Restarted auto-PAP in 2019 -Currently followed by [facility] sleep clinic, last appointment in May 2023, auto-PAP 8-20 cm H2O -Continue current setting -Work on lifestyle modifications Assessment & Plan (11/01/2024 8:37 AM EDT): -Last sleep study on 07/22/2018. Dx SHANON -Restarted auto-PAP in 2019 -Currently followed by [facility] sleep clinic, last appointment in May 2023, auto-PAP 8-20 cm H2O -Continue current setting -Work on lifestyle modifications Assessment & Plan (08/25/2024 2:39 PM EST): -Last sleep study on 07/22/2018. Dx SHANON -Restarted auto-PAP in 2019 -Currently followed by [facility] sleep clinic, last appointment in May 2023, auto-PAP 8-20 cm H2O -Continue current setting -Work on lifestyle modifications Assessment & Plan (08/04/2024 10:59 PM EST): -Last sleep study on 07/22/2018. Dx SHANON -Restarted auto-PAP in 2019 -Currently followed by [facility] sleep clinic, last appointment in May 2023, auto-PAP 8-20 cm H2O -Continue current setting -Work on lifestyle modifications Assessment & Plan (04/07/2024 11:48 AM EDT): -Last sleep study on 07/22/2018. Dx SHANON -Restarted auto-PAP in 2019 -Currently followed by [facility] sleep clinic, last appointment in May 2023, auto-PAP 8-20 cm H2O -Continue current setting -Work on lifestyle modifications Assessment & Plan (08/13/2023 4:54 AM EST): -Last sleep study on 07/22/2018. Dx SHANON -Restarted auto-PAP in 2019 -Currently followed by [facility] sleep clinic, last appointment in May 2023, auto-PAP 8-20 cm H2O -Continue current setting -Work on lifestyle modifications Assessment & Plan (05/11/2023 8:26 AM EDT): -Last sleep study on 07/22/2018. Dx SHANON -Restarted auto-PAP in 2019 -Currently followed by [facility] sleep clinic, last appt in 12/31/21, auto-PAP 8-20 cm H2O -Pt received new CPAP machine and now scheduled for Mask Fitting d/t pain on his head. -Continue current setting -Work on lifestyle modifications -Will request [facility] sleep medicine clinic to follow up and provide recommendation. Assessment & Plan (01/21/2023 10:57 AM EDT): -Last sleep study on 07/22/2018. Dx SHANON -Restarted auto-PAP in 2019 -Currently followed by [facility] sleep clinic, last appt in 11/13/22 , New CPAP was prescribed. APAP 8-20 cmH2O. -Continue current setting -Work on lifestyle modifications Assessment & Plan (2022 2:08 PM EST): -Last sleep study on 07/22/2018. Dx SHANON -Restarted auto-PAP in 2019 -Currently followed by [facility] sleep clinic, last appt in 12/31/21, auto-PAP 8-20 cm H2O -Pt received new CPAP machine and now scheduled for Mask Fitting d/t pain on his head. -Continue current setting -Work on lifestyle modifications -Will request [facility] sleep medicine clinic to follow up and provide recommendation. Assessment & Plan (09/24/2022 10:57 AM EST): -Last sleep study on 07/22/2018. Dx SHANON -Restarted auto-PAP in 2019 -Currently followed by [facility] sleep clinic, last appt in 12/31/21, auto-PAP [...] check with Lung Cancer screening program in [facility] for next CT scan schedule -Continue working [...] (11/04/2024 11:22 AM EDT): - following with [facility] Urology - s/p TURP and bladder stone removal on 09/13/24 - continue doxazosin and finasteride Assessment & Plan (08/25/2024 2:37 PM EST): - following with [facility] U[facility] - continue doxazosin and finasteride Assessment & Plan (08/11/2024 6:20 AM EST): - following with [facility] U[facility] - continue doxazosin and finasteride Assessment [...] Type Department Care Team Description 05/23/2025 Refill [facility] [address] [place], [place] [phone] Bridgette Fagan MD 05/03/2025 11:00 AM EDT Office Visit [facility] [address] [place] [phone] Bridgette Fagan MD Hypertension, unspecified type (Primary Dx); Class 2 severe obesity due to excess calories with serious comorbidity and body mass index (BMI) of 38.0 to 38.9 in adult (CMS/HCC); Controlled type 2 diabetes mellitus without complication, without long-term current use of insulin ([facility]); Jerking movements of extremities; Involuntary movements; Obstructive sleep apnea syndrome; Alzheimer disease (CMS/HCC); Periodic limb movement disorder (PLMD); Degeneration of intervertebral disc of lumbar region, unspecified whether pain present; Lumbar radiculopathy; Ascending aorta dilation (CMS/HCC); Tremor; Memory difficulties 05/03/2025 Orders Only GENERIC EXTERNAL DATA DEPARTMENT Provider, Generic External Data 05/03/2025 Travel 05/02/2025 Telephone [facility] [address] [place] [address] Bridgette Fagan MD CHART PREP from Last 3 Months Immunizations Immunization Administration [...] Description 08/21/2025 11:00 AM EST Office Visit [facility] [address] [place] [phone] Bridgette Fagan MD [address] [place] [address] Health Maintenance Due Date Last Done Comments Zoster Vaccines (2 of 3) 06/22/2017 04/27/2017 RSV Patients and Patients Aged 60 years or older (1 - 1-dose 75+ series) 2020 DTaP/Tdap/Td Vaccines (2 - Td or Tdap) 09/14/2023 09/14/2013, 01/23/1997, 01/23/1997 Dental Oral Exam 01/06/2025 07/08/2024, 03/2023, 06/20/2022 COVID-19 Vaccine ( season) 2025 Influenza Vaccine (#1) 2025 0, 05/02/2020, 06/13/2019, Additional history exists Diabetes: [...] complication, without long-term current use of insulin ([facility]) PROPHYLAXIS - ADULT Routine 01/06/2025 1 0:00 AM EDT Dental plaque ALBUMIN, RANDOM URINE W/CREATININE Routine 10/28/2024 9:15 AM EDT Controlled type 2 diabetes mellitus without complication, without long-term current use of insulin ([facility]) LIPID PANEL WITH REFLEX TO DIRECT LDL Routine 10/28/2024 9:15 AM EDT Controlled type 2 diabetes mellitus without complication, without long-term current use of insulin ([facility]) BITEWING - SINGLE RADIOGRAPHIC IMAGE Routine 09/12/2024 [...] PSA,Total (Free>4and<10) 1.14 0.00 - 4.00 ng/mL [facility] Comment:A Free PSA [...] 9:01 AM EDT 05/03/2025 9:01 AM EDT Generic External Data Provider LAB BLOOD ORDERAB LES Final Result [facility] [address] [place] [phone] * (ABNORMAL) POCT glycosylated hemoglobin (Hgb A1c) (01/31/2025 11:15 AM EDT) Hemoglobin A1C 7.5(A) 4.0 - 6.0 % QC Media Lot # [id number] Lot# Expiration Date Blood Capillary blood specimen / Unknown 01/31/2025 11:15 AM EDT Bridgette Fagan MD POINT OF CARE TEST ENTER/EDIT OR DERABLES Final Result * Lipid Panel with Reflex to Direct LDL (10/28/2024 9:15 AM EDT) Triglycerides 125 <150 mg/dL [facility] Comment:Desirable Triglyceri de: less than 150 mg/dLBorderline High Triglyceride 150-199 mg/dLHigh Triglyceride: 200-499 mg/dLVery High Triglyceride: greater than or equal to 5OO mg/dL Cholesterol 126 <200 mg/dL [facility] Comment:Desirable Cholestero l: less than 200 mg/dLBorderline High Cholesterol: 200-239 mg/dLHigh Cholesterol: greater than 239 mg/dL LDL Cholesterol Calculated 58 <100 mg/dL [facility] Comment:Desirable LDL: less than 100 mg/dLNear Optimal/Above Optimal LDL: 110- 129 mg/dLBorderline High LDL: 130-159 mg/dLHigh LDL: 160-189 mg/dLVery High LDL: greater than or equal to 190 mg/dL HDL Cholesterol 43 >40 mg/dL [facility] Comment:Desirable HDL: great er than 40 mg/dL Note: This HDL assay may give artificially low results in patients with liver disease. Blood 10/28/2024 9:15 AM EDT 10/28/2024 11:15 AM EDT us Bridgette Fagan MD LAB BLOOD ORDERABLES Final Resul t Performing Organization Address [facility] Co de Phone Number [facility] [address] [place] [phone] * (ABNORMAL) Albumin, Random Urine W/Creatinine (10/28/2024 9:15 AM EDT) Creatinine, Urine 247.97 mg/dL [facility] Microalbumin Urine 145.0 mg/L [facility] Microalbum Creatinine Ratio Ur 58.4(H) <30 ug/mg cr [facility] Comment:Albumin/Creatinine R atio Reference Ranges: Normal: < 30 ug/mg creatinine Microalbuminuria: 30 - 300 ug/mg creatinineClinical Albuminuria: > 300 ug/mg creatinine Urine 10/28/2024 9:15 AM EDT 10/28/2024 11:14 AM EDT us Bridgette Fagan MD LAB URINE ORDERABLES Final Resul t Performing Organization Address City/[facility]/ZIP Co de Phone Number [facility] [address] [place] [address] [phone] * Hm Diabetes Eye Exam (06/29/2024) Eye Exam Normal Normal 06/29/2024 Historical Provider HEALTH MAINTENANCE Final Result * CT Lung Screening Low dose (12/22/2023 9:58 AM EDT) Anatomical Region Laterality Modality Lung Computed Tomogra phy 12/22/2023 9:58 AM EDT Narrative 12/27/2023 11:40 PM EDT [address] [address] [address] Scan Report Signed Patient: Bharathi Walsh R#: [id number] : 1945 Acct:[id number] Age/Sex: 78 / M ADM Date: 12/22/23 Loc: HO.CT Attending Dr: Tc Castillo MD Ordering Physician: Tc Castillo MD Date of Service: 12/22/23 Procedure(s): CT lung screening Accession Number(s): [id number] cc: Tc Castillo MD; Bridgette Fagan MD [...] for CT CHEST LOW DOSE CANCER SCREENING ([id number]) can be placed. Dictated By: Kun nEciso MD Signed By: <Electronically signed by Kun Enciso MD in OV> 12/27/23 2336 DD/ 0958 TD/TT: Gas Meter Checker: SS Procedure Note Donotuseinterpreter, Image - 12/27/[address] [place] [address] [address] Scan Report Signed Patient: Shalom Walsh R#: [id number] : 6Acct:[id number] Age/Sex: 78 / MADM Date: 12/22/23 Loc: HO.CT Attending Dr: Tc Castillo MD Ordering Physician: Tc Castillo MD Date of Service: 12/22/23 Procedure(s): CT lung screening Accession Number(s): [id number] cc: Tc Castillo MD; Bridgette Fagan MD [...] for CT CHEST LOW DOSE CANCER SCREENING ([id number]) can be placed. Dictated By: Kun Enciso MD Signed By: <Electronically signed by Kun Enciso MD in OV> 12/27/23 2336 DD/ 0958 TD/TT: Gas Meter Checker: [facility] External Provider IMG CT PROCEDURES Edited Result - Final from Last 3 Months or Most Recently Relevant to Health Maintenance Insurance * Guarantor: Bharathi Walsh Account Type Relation to Patient Date of Phone Billing Address Personal/Family Self [address] [place] [address] [facility] [place] [address] DENTAL - [facility] * Guarantor: Bharathi Walsh Account Type Relation to Patient Date of Phone Billing Address Personal/Family Self [address] [place] [phone] * Guarantor: Bharathi Walsh Account Type Relation to Patient Date of Phone Billing Address Personal/Family Self [address] [place] [address] [address] [place] [address] Care Teams Product Marketing Executive Relationship Specialty Start Date End Date Bridgette Fagan MD [address] [place] [address] PCP - General Family Medicine 07/01/12 Ramón Bolaños, MollyD [address] [place] [address] Pharmacist Internal Medicine 11/18/23
--- OUTSIDE RECORDS SUMMARY | 2025-07-25 06:22 | XMS_ITS | Encounter Summary ---
Author Organization [employer] Address [address] [facility] [address] [place] [address] Care Team Providers Care Night Order Selector Name Role Phone Bridgette Gandhi MD Primary Care Provider Ramón Bolaños PharmD Unavailable [phone] Encounter Details Date Type Department Care Team (Late st Contact Info) Description 07/31/2022 Abstract [facility] [address] [place] [address] Bubba, Lydia [address] [place] [address] Social History Tobacco Use Types Packs/Day Years [...] Description 08/21/2025 11:00 AM EST Office Visit [facility] [address] [place] [address] Bridgette Gandhi MD [address] [place] [address] documented as of this encounter Visit Diagnoses Not on filedocumented in this encounter Care Teams Night Order Selector Relationship Specialty Start Date End Date Bridgette Gandhi MD [address] [place] [address] PCP - General Family Medicine 07/01/12 Ramón Bolaños, MollyD [address] [place] [address] Pharmacist Internal Medicine 11/18/23 documented as of this encounter
== END 2025-07-25 06:20 | disposition home or self-care (01) ==
LOC: CF 06:19
PROVIDERS: Visit Provider Anesthesiology
DX: M51.16 Intervertebral disc disorders with radiculopathy, lumbar region (principal)
CPT/HCPCS: 64483; J2003; J3301; Q9967

== ENCOUNTER 2025-07-25 09:39 | Outpatient (AMB) | payer OTHER, SELFPAY ==
[2025-07-25 09:47] VITALS: BP 159/67; PULSE 56; RESP 16; O2SAT 96; BMI 39.4
--- NOTE | 2025-07-25 09:47 | A.OFFVIS_ITS ---
Vital Signs 07/25/25 09:47 07/25/25 10:50 Height 5 ft 6 in Weight 244 lb BMI 39.4 BP 159/67 H 179/84 H Blood Pressure Location Lt brachial Lt brachial Position Sitting Sitting Respiration 16 16 Pulse 56 57 Pulse Source Pulse Oximeter Pulse Oximeter Pulse Oximetry (%) 96 97 Oxygen Delivery Method Room Air Room Air Intake Visit Reasons: Left L3-L4 TFESI Allergies Penicillins Allergy (Intermediate, Verified 06/16/25 11:00) RASH Carbapenems Allergy (Unknown, Verified 06/16/25 11:00) Unknown Cephalosporins Allergy (Unknown, Verified 06/16/25 11:00) Unknown enviormental Allergy (Severe, Uncoded 06/16/25 11:00) coughing and sneezing PFSH Medical History 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 Father No problems noted. Brother CAD (coronary artery disease) Sister Alzheimer disease Social History Household Members: Other Household Members Other:: 2 roomates Housing: Apartment Are you a primary critical care physician assistant to a significant other at home: No Do you presently have visiting nurse or other home services: Yes Alcohol intake: never Patient Tobacco Use Status: Former Tobacco user Cigarette Packs Per Day: 0.5 Cigarettes Per Day: 10.0 Years Smoked: 60 +/- , quit- Oct 12 2023 Physical Exam Vital Signs: Last Vital Signs Pulse 57 07/25/25 10:50 Resp 16 07/25/25 10:50 BP 179/84 H 07/25/25 10:50 Pulse Ox 97 07/25/25 10:50 Oxygen Delivery Method Room Air 12/09/25 10:50 BMI result Body Mass Index 39.4 Assessment & Plan Assessment & Plan (1) Lumbar radiculopathy: Code(s): M54.16 - Radiculopathy, lumbar region Category: Medical Plan: Left L3-L4 Transforaminal epidural steroid injection l. (2) Disc degeneration, lumbar: Code(s): M51.36 - Other intervertebral disc degeneration, lumbar region Category: Medical Plan Left L3-L4 Transforaminal epidural steroid injection Informed consent was thoroughly explained to the patient before the procedure. The patient came to the operating room. He was positioned prone on operating table with a pillow under her abdomen. Time-out was performed delineating correct site and side of the procedure, nature of the injection, name and date of of the patient. The lower back of the patient was prepped with ChloraPrep and draped with sterile utility towels. C-arm was brought over the operating field and sq picture of L3 vertebra was demonstrated on the screen. The left side was chosen as the side of the injection. Tilting machine ipsilateral to the left at the level of L3 the most prominent picture of the pedicle on the left was de monstrated on the screen. 3 mm below the most lowest point of the pedicle projection to the skin small amount of lidocaine 1% was injected to anesthetize the skin. After that 5 in 22 gauge Quincke point needle was inserted through the skin wheal and was advanced toward the L3-L4 foramina on anterior posterior, lateral and oblique views intermittently. When the needle entered foramina on AP view. When tip of the needle entered foramina projection on AP view injection of the contrast was performed demonstrating epidural and perineural spread of the contrast. After that injection of the treatment medicine 3 cc of preservative-free lidocaine 1% mixed with Kenalog 20 mg was injected into the foramina. No intrathecal and no intravascular spread of the contrast was noted. The needle was removed . Upon completion of the procedure needle was removed and sterile Band-Aid was applied. Patient tolerated the procedure well. Orders: Orders FL guidance in treatment room Today M51.36 - Other intervertebral disc degeneration, lumbar region Coding Level of Care Code Procedure Only Diagnoses Lumbar radiculopathy M54.16 Disc degeneration, lumbar M51.36
[2025-07-25 10:50] VITALS: BP 179/84; PULSE 57; RESP 16; O2SAT 97
== END 2025-07-25 10:50 | disposition home or self-care (01) ==
LOC: HO.PMCPRC 09:39
PROVIDERS: PCP Family Medicine; Visit Provider Anesthesiology
DX: M54.16 Radiculopathy, lumbar region (principal)
CPT/HCPCS: 64483

== ENCOUNTER 2025-08-11 09:57 | Outpatient (REF) | payer OTHER, SELFPAY ==
--- NOTE | ~2025-08-11 | XR_ITS ---
EXAMINATION: XR CHEST CLINICAL INFORMATION: R05.9 - Cough, unspecified COMPARISON: Chest x-ray 04/07/2024 TECHNIQUE: 2 views of the chest were obtained. FINDINGS: No significant abnormality is noted involving the heart, lungs, mediastinum, bony thorax or soft tissues. XR/XR chest 2V IMPRESSION: Unremarkable chest examination. Electronically signed by: Sunil Escalante MD 08/11/2025 12:11 PM [facility] [place]
== END 2025-08-11 09:58 | disposition home or self-care (01) ==
LOC: HO.HMGCX 09:57
PROVIDERS: PCP Family Medicine; Visit Provider Family Medicine
DX: J06.9 Acute upper respiratory infection, unspecified (principal); R05.9 Cough, unspecified
CPT/HCPCS: 71046; 99212

== ENCOUNTER 2025-08-11 09:57 | Outpatient (AMB) | payer OTHER, SELFPAY ==
--- OUTSIDE RECORDS SUMMARY | 2025-08-11 10:01 | XMS_ITS | Encounter Summary ---
Author Organization [employer] Address [address] 7[address] [place] [address] Care Team Providers Care Charting Clerk Name Role Phone Bridgette Gandhi MD Primary Care Provider [phone] Ramón Bolaños PharmD Unavailable [phone] Encounter Details Date Type Department Care Team (Late st Contact Info) Description 09/04/2023 Orders Only [facility] MEDICINE [address] [place], [place] [phone] Bridgette Gandhi MD [address] [place], [place] [phone] Chronic pain of both knees (Primary Dx) [...] Description 08/21/2025 11:00 AM EST Office Visit [facility] MED[facility]INE [address] [place] [address] Bridgette Gandhi MD [address] [place] [address] documented as of this encounter Visit Diagnoses Diagnosis Chronic pain of both knees- Primary documented in this encounter Additional Health Concerns Assessment Noted Time PHQ-9 Depression Total Score: 5 09/11/19 23 10:25 AM EST documented as of this encounter Care Teams Charting Clerk Relationship Specialty Start Date End Date Bridgette Gandhi MD [address] [place] [address] PCP - General Family Medicine 07/01/12 Ramón Bolaños, MollyD [address] [place] [address] Pharmacist Internal Medicine 11/18/23 documented as of this encounter
--- OUTSIDE RECORDS SUMMARY | 2025-08-11 10:01 | XMS_ITS | Encounter Summary ---
Author Organization [employer] Address [address] [facility] 7t [place] [address] Care Team Providers Care Terminal Operator Name Role Phone Bridgette Gandhi MD Primary Care Provider [phone] Ramón Bolaños PharmD Unavailable [phone] Reason for Visit * Reason Comments Med Refill Encounter Details Date Type Department Care Team (Late st Contact Info) Description 03/10/2024 Refill [facility] MEDICINE [address] [place], [place] [phone] Bridgette Gandhi MD [address] [place], [place] [phone] Social History Tobacco Use Types Packs/Day Years [...] 11:00 AM EST Office Visit [facility] MEDICINE [address] [place] [address] Bridgette Gandhi MD [address] [place] [address] documented as of this encounter Goals Goal [...] as of this encounter Care Teams Terminal Operator Relationship Specialty Start Date End Date Bridgette Gandhi MD [address] [place] [address] PCP - General Family Medicine 07/01/12 Ramón Bolaños, PharmD [address] [place] [address] [place] [address] Pharmacist Internal Medicine 11/18/23 documented as of this encounter
--- OUTSIDE RECORDS SUMMARY | 2025-08-11 10:01 | XMS_ITS | Encounter Summary ---
Author Organization [employer] Address [address] [place] [address] 7t [place] [address] Care Team Providers Care Production Roustabout Name Role Phone Bridgette Gandhi MD Primary Care Provider [phone] Ramón Bolaños PharmD Unavailable [phone] Reason for Referral * Consultation (Routine) - Authorized Specialty Diagnoses / Procedures Referred By Contac t Referred To Contact Cardiology Diagnoses Hypertension, unspecified type Venous insufficiency Ascending aorta dilation (CMS/HCC) Bridgette Gandhi MD [address] [place] [address] Phone: tel: fax: [facility] Referral ID Status Reason Start Date Expiration Date Visits Requested Visits Authorized [id number] Authorized Specialty Services Required 04/06/2025 04/06/2026 1 1 Encounter Details Date Type Department Care Team (Late st Contact Info) Description 04/06/2025 Orders Only [facility] MEDICINE [address] [place], [place] [phone] Bridgette Gandhi MD [address] [place], [place] [phone] Hypertension, unspecified type (Primary Dx); Venous insufficiency; [...] Description 08/21/2025 11:00 AM EST Office Visit [facility] MEDICINE [address] [place] [address] Bridgette Gandhi MD [address] [place] [address] Scheduled Referrals Name Type Priority Associated Diagnoses [...] documented as of this encounter Care Teams Production Roustabout Relationship Specialty Start Date End Date Bridgette Gandhi MD [address] [place] [address] PCP - General Family Medicine 07/01/12 Ramón Bolaños PharmD [address] [place] [address] Pharmacist Internal Medicine 11/18/23 documented as of this encounter
--- OUTSIDE RECORDS SUMMARY | 2025-08-11 10:01 | XMS_ITS | Encounter Summary ---
Author Organization [employer] Address [address] [facility] [address] [facility] [address] [address] [address] [place] [address] Care Team Providers Care Hand Tapper Name Role Phone Bridgette Gandhi MD Primary Care Provider Ramón Bolaños PharmD Unavailable Encounter Details Date Type Department Care Team (Late st Contact Info) Description 10/09/2022 Orders Only [facility] MEDICINE [address] [place], [place] [phone] Bridgette Gandhi MD [address] [place], [place] [phone] Spinal stenosis of lumbar region with neurogenic [...] Description 08/21/2025 11:00 AM EST Office Visit [facility] MEDICINE [address] [place] [address] Bridgette Gandhi MD [address] [place] [address] documented as of this encounter Visit Diagnoses Diagnosis Spinal stenosis of lumbar region with neurogenic claudication- Primary documented in this encounter Additional Health Concerns Assessment Noted Time PHQ-9 Depression Total Score: 5 09/11/19 23 10:25 AM EST documented as of this encounter Care Teams Hand Tapper Relationship Specialty Start Date End Date Bridgette Gandhi MD [address] [place] [address] PCP - General Family Medicine 07/01/12 Ramón Bolaños, MollyD [address] [place] [address] Pharmacist Internal Medicine 11/18/23 documented as of this encounter
--- OUTSIDE RECORDS SUMMARY | 2025-08-11 10:01 | XMS_ITS | Encounter Summary ---
Author Organization [employer] Address [address] [facility] [address] [facility] [address] 7[address] [place] [address] Care Team Providers Care Recharger Name Role Phone Bridgette Gandhi MD Primary Care Provider [phone] Ramón Bolaños PharmD Unavailable Encounter Details Date Type Department Care Team (Late st Contact Info) Description 08/22/2024 Abstract [facility] MEDICINE [address] [place] [address] [place] Social History Tobacco Use [...] Description 08/21/2025 11:00 AM EST Office Visit [facility] MEDICINE [address] [place] [address] Bridgette Gandhi MD [address] [place] [address] documented as of this encounter Goals Goal [...] documented as of this encounter Care Teams Recharger Relationship Specialty Start Date End Date Bridgette Gandhi MD [address] [place] [address] PCP - General Family Medicine 07/01/12 Ramón Bolaños PharmD [address] [place] [address] Pharmacist Internal Medicine 11/18/23 documented as of this encounter
--- OUTSIDE RECORDS SUMMARY | 2025-08-11 10:01 | XMS_ITS | Encounter Summary ---
Author Organization [facility] Address [address] [address] Phone Care Team Providers Care Health Care Technician Name Role Phone Bridgette Gandhi MD Primary Care Provider [phone] Encounter Details Date Type Department Care Team (Late Contact Info) Description 08/04/2025 Orders Only [facility] [address] [place] [address] Gómez Colunga MD [address] [address] Hypertension; Type 2 diabetes mellitus without complication (HCC) Social History Tobacco Use Types Packs/Day Years Used Date Smoking Tobacco: Never Assessed Sex and Gender Information Value Date Recorded Sex Assigned at Not on file Legal Sex Male 4:57 PM EST Gender Identity Not on file Sexual Orientation Not on file documented as of this encounter Plan of Treatment Upcoming Encounters Date Type Department Care Team (Late Contact Info) Description 09/07/2025 1:15 PM EST Office Visit [facility] [address] [place] [address] Gómez Colunga MD [address] [address] documented as of this encounter Visit Diagnoses Diagnosis Hypertension Type 2 diabetes mellitus without complication (HCC) documented in this encounter Care Teams Health Care Technician Relationship Specialty Start Date End Date Bridgette Gandhi MD [address] [place] [address] PCP - General 08/27/20 documented as of this encounter
--- OUTSIDE RECORDS SUMMARY | 2025-08-11 10:01 | XMS_ITS | Encounter Summary ---
Author Organization [email or web address] Address [address] [facility] 7t [place] [address] Care Team Providers Care Retail Seasonal Specialist Name Role Phone Bridgette Gandhi MD Primary Care Provider [phone] Ramón Bolaños PharmD Unavailable [phone] Encounter Details Date Type Department Care Team (Late st Contact Info) Description 06/24/2024 Orders Only [facility] MEDICINE [address] [place], [place] [phone] Bridgette Gandhi MD [address] [place], [place] [phone] Social History Tobacco Use Types Packs/Day Years [...] the past 12 months, has t he [employer], gas, oil or water company threatened to [...] Description 08/21/2025 11:00 AM EST Office Visit [facility] MEDICINE [address] [place] [address] Bridgette Gandhi MD [address] [place] [address] documented as of this encounter Goals Goal [...] documented as of this encounter Care Teams Retail Seasonal Specialist Relationship Specialty Start Date End Date Bridgette Gandhi MD [address] [place] [address] PCP - General Family Medicine 07/01/12 Ramón Bolaños, MollyD [address] [place] [address] Pharmacist Internal Medicine 11/18/23 documented as of this encounter
--- OUTSIDE RECORDS SUMMARY | 2025-08-11 10:01 | XMS_ITS ---
Author Name Nadira KNOW[employer] Address [address] [place] [address] Phone [phone] [facility] Care Team Providers Care Vb Net Developer Name Role Phone Qi Waddell Unavailable [phone] ROSENEENA VELEZO Unavailable [phone] Concepción Mcrae Unavailable [phone] Unavailable Unavailable Unavailable Reason for Referral Not [...] 2022-03-10 No Data Available [place] Nasal [place] 0.65 % Solution USE 1-2 SPRAYS IN [...] persistent NOLEN< blurry vision)07/25/2024:Follows up with PCP, Pharm Spec, last visit 2 weeks ago.Taking: amLODIPine Besylate [...] ophthalmology every 3-6 months 07/25/2024:Follows up with Community Development Officer.Continues using: Latanoprost drops.Denies any acute complaint. [...] likely not be covered by health plan. [facility] cc info sent to member and UNCLAIMED PROPERTY OFFICER. Advised to f/u with recliner request during 07/27/24 f/u visit with PCP, as may need PT/OT eval. Loose stools Active 2025-05-18 N/A StableReport s intermittent loose stoolDietary and lifestyle interventions [facility] - Imodium if diarrhea developsContact CB if having change in BM and continue with PCP. Encounters Encounters Type Facility Date of Service Diagnosis/Co mplaint New patient,40-59min; chronic exacerbation, 2 stable chronic or 1 acute illness add add modifier 95 for video (do not use for phone, instead use 86489-95) [facility], ([place]/2022 Type 2 diabetes mellitus wit h diabetic neuropathy, unspecifiedHypertensive heart disease with heart failureHeart failure, unspecifiedMorbid (severe) obesity due to excess caloriesMajor depressive disorder, recurrent, mildChronic obstructive pulmonary disease, unspecifiedOther amnesiaUnspecified glaucomaBody mass index (bmi) 39.0-39.9, adult New patient,40-59min; chronic exacerbation, 2 stable chronic or 1 acute illness add add modifier 95 for video (do not use for phone, instead use 96949-80) [facility] New patient,40-59min; chronic exacerbation, 2 stable chronic or 1 acute illness add add modifier 95 for video (do not use for phone, instead use 30382-61) [facility]20[place] New patient,40-59min; chronic exacerbation, 2 stable chronic or 1 acute illness add add modifier 95 for video (do not use for phone, instead use 54157-61) [facility] 10[place]/20[place] New patient,40-59min; chronic exacerbation, 2 stable chronic or 1 acute illness add add modifier 95 for video (do not use for phone, instead use 51263-68) [facility] 10[place]/2022 New patient,40-59min; chronic exacerbation, 2 stable chronic or 1 acute illness add add modifier 95 for video (do not use for phone, instead use 17141-38) [facility] 10[place]/2022 New patient,40-59min; chronic exacerbation, 2 stable chronic or 1 acute illness add add modifier 95 for video (do not use for phone, instead use 75851-03) [facility] 10[place]20[place] New patient,40-59min; chronic exacerbation, 2 stable chronic or 1 acute illness add add modifier 95 for video (do not use for phone, instead use 90386-52) [facility] 10[place]/2022 New patient,40-59min; chronic exacerbation, 2 stable chronic or 1 acute illness add add modifier 95 for video (do not use for phone, instead use 72509-72) [facility] 10[place]/2022 No Data Available [facility]2022 Type 2 diabetes mellitus wit h diabetic neuropathy, unspecifiedMorbid (severe) obesity due to excess caloriesMajor depressive disorder, recurrent, mildHeart failure, unspecifiedHypertensive heart disease with heart failureChronic obstructive pulmonary disease, unspecifiedOther amnesiaUnspecified glaucoma No Data Available [facility] 10[place]/2022 No Data Available [facility]/20[place] Estab. patient 30-39min; chronic exacerbation, 2 stable chronic or 1 acute illness add add modifier 95 for video, (do not use for phone, instead use 40014-98) [facility]/2023 Type 2 diabetes mellitus wit [...] (do not use for phone, instead use 63361-77) [facility]/2023 Estab. patient 30-39min; chronic exacerbation, 2 stable chronic or 1 acute illness add add modifier 95 for video, (do not use for phone, instead use 27295-18) [facility] 10[place]/2023 Estab. patient 30-39min; chronic exacerbation, 2 stable chronic or 1 acute illness add add modifier 95 for video, (do not use for phone, instead use 68700-54) [facility] 10[place]/2023 Estab. patient 30-39min; chronic exacerbation, 2 stable chronic or 1 acute illness add add modifier 95 for video, (do not use for phone, instead use 86259-41) [facility]20[place] Estab. patient 30-39min; chronic exacerbation, 2 stable chronic or 1 acute illness add add modifier 95 for video, (do not use for phone, instead use 55040-06) [facility] Estab. patient 30-39min; chronic exacerbation, 2 stable chronic or 1 acute illness add add modifier 95 for video, (do not use for phone, instead use 86494-15) [facility] 10[place]/2023 Estab. patient 30-39min; chronic exacerbation, 2 stable chronic or 1 acute illness add add modifier 95 for video, (do not use for phone, instead use 12125-69) [facility] 10[place]/2023 Estab. patient 30-39min; chronic exacerbation, 2 stable chronic or 1 acute illness add add modifier 95 for video, (do not use for phone, instead use 95399-13) [facility]20[place] Estab. patient 30-39min; chronic exacerbation, 2 stable chronic or 1 acute illness add add modifier 95 for video, (do not use for phone, instead use 12083-46) [facility] 10[place]/2023 Estab. patient 20-29min; 1 stable chronic or 2 minor; add add modifier 95 for video, modifier 93 for phone [facility] 05[place]/2024 Other chronic painOther prob lems related to medical facilities and other health care Estab. patient 20-29min; 1 stable chronic or 2 minor; add add modifier 95 for video, modifier 93 for phone [facility] 05[place]/20[place] Estab. patient 20-29min; 1 stable chronic or 2 minor; add add modifier 95 for video, modifier 93 for phone [facility] 05/[place]/20[place] Estab. patient 20-29min; 1 stable chronic or 2 minor; add add modifier 95 for video, modifier 93 for phone [facility] 05/30/2024 Estab. patient 20-29min; 1 stable chronic or 2 minor; add add modifier 95 for video, modifier 93 for phone [facility] 05/30/2024 Estab. patient 20-29min; 1 stable chronic or 2 minor; add add modifier 95 for video, modifier 93 for phone [facility] 05/30/2024 Estab. patient 20-29min; 1 stable chronic or 2 minor; add add modifier 95 for video, modifier 93 for phone [facility] 05/[place]/2024 No Data Available [facility] 07[place]/2024 Hypertensive heart disease w ith heart failureHeart failure, unspecifiedSecondary hyperaldosteronismChronic obstructive pulmonary disease, unspecifiedUnspecified glaucomaOther problems related to medical facilities and other health careOther chronic pain No Data Available [facility] 07/[place]/2024 No Data Available [facility] 07/[place]/20[place] Estab. patient 10-29min; 1 minor problem; add add modifier 95 for video, modifier 93 for phone [facility] 05/18/2025 Type 2 diabetes mellitus wit h [...] 95 for video, modifier 93 for phone [facility] 05/18/2025 Estab. patient 10-29min; 1 minor [...] Current Smoking Status Current every day smoker 2025-08-11 Sex Male History of Procedures Procedures Service Procedure code Service date Servicing provider Phone# New patient,40-59min; chronic exacerbation, 2 stable chronic or 1 acute illness add add modifier 95 for video (do not use for phone, instead use 86609-54) [id number] 2022-10-28 No Data Available No Data Availa [...] No Data Nancy ilable No Data Available [id number] 2022-10-29 No Data Available No Data Available [...] (do not use for phone, instead use 28217-60) [id number] 2023-10-27 No Data Available No Data Availa [...] 95 for video, modifier 93 for phone [id number] 2024-05-30 No Data Available No Data Availa [...] le No Data Available No Data Available [id number] 2024-07-25 No Data Available No Data Available Medication List Documented (1159F) 1159F 2024-07-25 No Data Available No Data Nancy ilable Pain Assessment - Pain Documented on a Pain Scale (1125F) 1125F 2024-07-25 No Data Available No Data Nancy ilable Estab. patient 10-29min; 1 minor problem; add add modifier 95 for video, modifier 93 for phone 05370 2025-05-18 No Data Available No Data Availa [...] persistent NOLEN< blurry vision)10/27/2023:Follows up with PCP, Pharm Spec, last visit 2 weeks ago.BP: 119/68. Reported [...] ophthalmology every 3-6 months 10/27/2023:Follows up with Community Development Officer.Continues using: Latanoprost drops.Denies any acute complaint.Reports [...] (no modifier 95)Pain Assessment - Pain Documented (8538F)Continue to see PCP. Follow-up with [facility] as needed for any acute or disease education needs that may arise 09/03.StableLisinopril, Furosemide Avg BP: 120s/60sContinue taking medications as prescribed, continue monitoring BP, discussed low salt diet, exercise as tolerable, and lifestyle interventions. Contact us if developing emergent HTN s/sx (eg. palpitations, persistent NOLEN< blurry vision)07/25/2024:Follows up with PCP, Pharm Spec, last visit 2 weeks ago.Taking: amLODIPine Besylate [...] ophthalmology every 3-6 months 07/25/2024:Follows up with Community Development Officer.Continues using: Latanoprost drops.Denies any acute complaint.PAIN [...] likely not be covered by health plan. [facility] cc info sent to member and UNCLAIMED PROPERTY OFFICER. Advised to f/u with recliner request during [...] persistent NOLEN< blurry vision)07/25/2024:Follows up with PCP, Pharm Spec, last visit 2 weeks ago.Taking: amLODIPine Besylate [...] ophthalmology every 3-6 months 07/25/2024:Follows up with Community Development Officer.Continues using: Latanoprost drops.Denies any acute complaint.StableReports chronic [...] likely not be covered by health plan. [facility] cc info sent to member and UNCLAIMED PROPERTY OFFICER. Advised to f/u with recliner request during [...] questions or concerns. [facility]. CB 24/7 [...] okDo you have a Durable Power of Community Sports Coordinator for Healthcare, or Healthcare Proxy Or Guardianship? Yes, preferred proxy but not named POAIf so, Who? daughter, Senait Hernandez you have a written Advance Directive? Has no formal [id number] : AD or surrogate was documented in [...]
--- OUTSIDE RECORDS SUMMARY | 2025-08-11 10:01 | XMS_ITS | Encounter Summary ---
Author Organization [employer] Address [address] [place] [address] Care Team Providers Care Prop Attendant Name Role Phone Bridgette Gandhi MD Primary Care Provider [phone] Ramón Bolaños PharmD Unavailable [phone] Reason for Visit * Reason Onset Date Comments Medication Question 06/24/2024 Encounter Details Date Type Department Care Team (Late st Contact Info) Description 06/24/2024 Telephone [facility] [address] [place], [place] [phone] Bridgette Gandhi MD [address] [place], [place] [phone] Medication Question Social History Tobacco Use Types [...] broke. If any questions contact pt at [phone] documented in this encounter Plan of Treatment Upcoming Encounters Date Type Department Care Team (Late st Contact Info) Description 08/21/2025 11:00 AM EST Office Visit [facility] [address] [place] [address] Bridgette Gandhi MD [address] [place], [place] [phone] documented as of this encounter Goals Goal [...] documented as of this encounter Care Teams Prop Attendant Relationship Specialty Start Date End Date Bridgette Gandhi MD [address] [place] [address] PCP - General Family Medicine 07/01/12 Ramón Bolaños PharmD [address] [place] [address] Pharmacist Internal Medicine 11/18/23 documented as of this encounter
--- OUTSIDE RECORDS SUMMARY | 2025-08-11 10:01 | XMS_ITS | Encounter Summary ---
Author Organization [employer] Address [address] [facility] [address] [place] [address] Care Team Providers Care Underwriting Internship Name Role Phone Bridgette Gandhi MD Primary Care Provider Ramón Bolaños PharmD Unavailable [phone] Reason for Visit * Reason Comments Med Refill Encounter Details Date Type Department Care Team (Late st Contact Info) Description 10/22/2022 Refill [facility] [address] [place], [place] [phone] Tamela Drake MD [address] [place], [place] [phone] Dyslipidemia (Primary Dx) Social History Tobacco Use [...] Description 08/21/2025 11:00 AM EST Office Visit [facility] [address] [place] [address] Bridgette Gandhi MD [address] [place] [address] documented as of this encounter Visit Diagnoses Diagnosis Dyslipidemia- Primary Other and unspecified hyperlipidemia documented in this encounter Additional Health Concerns Assessment Noted Time PHQ-9 Depression Total Score: 5 09/11/19 23 10:25 AM EST documented as of this encounter Care Teams Underwriting Internship Relationship Specialty Start Date End Date Bridgette Gandhi MD [address] [place] [phone] PCP - General Family Medicine 07/01/12 Ramón Bolaños, MollyD [address] [place] [phone] Pharmacist Internal Medicine 11/18/23 documented as of this encounter
--- OUTSIDE RECORDS SUMMARY | 2025-08-11 10:01 | XMS_ITS | Clinical Summary ---
Author Organization [employer] Address 75 [facility] 7t [place] [address] Care Team Providers Care Backpackers Manager Name Role Phone Bridgette Gandhi MD Primary Care Provider [phone] Ramón Bolaños PharmD Unavailable [phone] Allergies Active Allergy Reactions Criticality Noted Date [...] 12 04/27/20 23 Active Deep Sea Nasal [place] 0.65 % nasal spray USE 1-2 SPRAYS [...] 12/02/19 24 Active Lancets (OneTouch Delica Plus [id number]) miscIndications: Type 2 diabetes mellitus without complications [...] mild pain. 60 tablet 12/28/19 25 Active finasteride (Proscar) 5 MG tablet [...] split. 90 tablet 3 05/03/20 25 Active Blood Glucose Monitoring Suppl (Accu-Chek Guide Me) w/Device kit Use to check BS twice daily as directed 1 kit 05/23/20 25 Active glucose blood (Accu-Chek Guide Test) test strip Use to check BS twice daily 100 each 11 5 1:18 PM EST 05/23/20 25 026 Active Accu-Chek Softclix Lancets lancets Use as instructed 100 each 11 5 1:17 PM EST 05/23/20 25 026 Active fluticasone (Flonase) 50 MCG/ACT nasal spray INSTILL 1-2 SPRAYS IN EACH NOSTRIL ONCE DAILY IN THE MORNING 16 g 2 08/04/20 25 Active fluticasone (Flonase) 50 MCG/ACT nasal spray INSTILL 1-2 SPRAYS IN EACH NOSTRIL ONCE DAILY IN THE MORNING 16 g 2 5 1:17 PM EST 01/11/20 25 025 Discontinued Active Problems Problem Noted Date Diagnosed Date [...] and following plan per urologist Fractured dental sabianism with loss of materi al 08/01/2024 Caries [...] aorta measuring 4.00 cm - Followed by Marketing Ambassador, monitor with echo every 6-12 months - Continue BP management - Referred to [facility] cardiology per patient's family's request since [facility] moved to [place] Assessment & Plan (11/04/2024 6:07 AM EDT): - 11/26/23 Echo showed mild dilatation of the ascending aorta measuring 4.00 cm - Followed by Marketing Ambassador, monitor with echo every 6-12 months - Continue BP management Assessment & Plan (04/07/2024 11:49 AM EDT): - 11/26/23 Echo showed mild dilatation of the ascending aorta measuring 4.00 cm - Followed by Marketing Ambassador, monitor with echo every 6-12 months - Continue BP management Assessment & Plan (01/04/2024 11:35 AM EDT): - 11/26/23 Echo showed mild dilatation of the ascending aorta measuring 4.00 cm - Followed by Marketing Ambassador, monitor with echo every 6-12 months - [...] MRI on 04/14/23: mild chronic ischemic microangiopathy; [id number] generalized diffuse supratentorial and cerebellar vermian parenchymal [...] MRI on 04/14/23: mild chronic ischemic microangiopathy; [id number] generalized diffuse supratentorial and cerebellar vermian parenchymal [...] 12:40 PM EDT): -[facility] Recommended to continue conservative management of compression stocking, DASH diet, and leg elevation. Discontinued Diltiazem due to possible side effects. -possible venous ablation -06/02/23 venous study showed b/l venous insufficiency. -recommended to discuss with his campus wellness coordinator and vascular specialist at [facility] for other treatment options, if appropriate -discontinued amlodipine and hydralazine recently - continue torsemide Assessment & Plan (08/14/2023 11:15 AM EST): -[facility] Apr 2021. Recommended to continue conservative management of compression stocking, DASH diet, and leg elevation. Discontinued Diltiazem due to possible side effects. -possible venous ablation -06/02/23 venous study showed b/l venous insufficiency. -recommended to discuss with his campus wellness coordinator and vascular specialist at [facility] for other treatment options, if appropriate Assessment & Plan (05/11/2023 8:29 AM EDT): -[facility] Apr 2021. Recommended to continue conservative management of compression stocking, DASH diet, and leg elevation. Discontinued Diltiazem due to possible side effects. -possible venous ablation -schedule venous study Assessment & Plan (2022 9:36 AM EST): -[facility] Apr 2021. Recommended to continue conservative management of compression stocking, DASH diet, and leg elevation. Discontinued Diltiazem due to possible side effects. -possible venous ablation Lumbar radiculopathy 2022 Assessment & Plan (05/15/2025 7:07 AM EDT): - last evaluated by paint process engineer in March 2025 - last injection treatment [...] 11/07 showed similar results - Refer to doctor's assistant Assessment & Plan (01/04/2024 11:26 AM EDT): [...] to pt's questionable adherence - comanaged with campus wellness coordinator, front desk assistant, clay dry press mixer operator, and pharmacist - evaluated for primary [...] to pt's questionable adherence - comanaged with campus wellness coordinator, front desk assistant, clay dry press mixer operator, and pharmacist - evaluated for primary [...] to pt's questionable adherence - co-managed with campus wellness coordinator, front desk assistant, clay dry press mixer operator, and pharmacist - evaluated for primary [...] to pt's questionable adherence - comanaged with campus wellness coordinator, front desk assistant, clay dry press mixer operator, and pharmacist - evaluated for primary [...] to pt's questionable adherence - comanaged with campus wellness coordinator, front desk assistant, clay dry press mixer operator, and pharmacist - evaluated for primary [...] to pt's questionable adherence - comanaged with campus wellness coordinator, front desk assistant, and pharmacist - check primary aldosteronism; may [...] to pt's questionable adherence - comanaged with campus wellness coordinator, front desk assistant, and pharmacist - check primary aldosteronism; may [...] to pt's questionable adherence - comanaged with campus wellness coordinator, front desk assistant, and pharmacist - check primary aldosteronism; may [...] to pt's questionable adherence - comanaged with campus wellness coordinator, clay dry press mixer operator, and pharmacist -?24-hr ambulatory BP monitor [...] & Plan (11/04/2024 11:29 AM EDT): Dx 2014 - A1c 6.7% on 11/01/24 - A1c [...] PLAN FOR COPD (CHRONIC OBSTRUCTIVE PULMONARY DISEASE) ([facility]) WRITTEN ON 08/13/2023 4:56 AM [...] PLAN FOR COPD (CHRONIC OBSTRUCTIVE PULMONARY DISEASE) ([facility]) WRITTEN ON 05/11/2023 8:27 AM [...] with [facility] pulmonologyDr. Cruz Continue Advair as [...] Encounters Date Type Department Care Team Description 08/04/2025 Orders Only [facility] MEDICINE [address] [place] [phone] Bridgette Gandhi MD Hypertension, unspecified type (Primary Dx); Dyslipidemia; Controlled type 2 diabetes mellitus without complication, without long-term current use of insulin (HCC); Memory difficulties; Anemia, unspecified type 08/04/2025 Refill [facility] MEDICINE [address] [place] [address] Bridgette Gandhi MD 08/03/2025 Telephone [facility] MEDICINE [address] [place] [address] Bridgette Gandhi MD Lab Orders 05/23/2025 Refill [facility] [address] [place] [address] Bridgette Gandhi MD from Last 3 Months Immunizations Immunization Administration [...] housing situation today? I have bertrandquinton bender 12/27/[address] you [...] Office Visit [facility] MED[facility]INE [address] [place] [phone] Bridgette Gandhi MD [address] [place] [address] Health Maintenance Due Date Last Done Comments Zoster Vaccines (2 of 3) 06/22/2017 04/27/2017 RSV Patients and Patients Aged 60 years or older (1 - 1-dose 75+ series) 2020 DTaP/Tdap/Td Vaccines (2 - Td or Tdap) 09/14/2023 09/14/2013, 01/23/1997, 01/23/1997 Dental Oral Exam 01/06/2025 07/08/2024, 03/2023, 06/20/2022 COVID-19 Vaccine (1 - season) 2025 Influenza Vaccine (#1) 2025 , [...] 11:15 AM EDT) No Ramón Bolaños, Bradley Help patients manage their type 2 diabetes Care Plan Help patients manage their type 2 diabetes No Yesenia Sanon Weekly blood pressure task Care Plan Weekly blood pressure task No Yesenia Sanon Help patients manage their type 2 diabetes Care Plan Help patients manage their type 2 diabetes No Yesenia Sanon Patient has chronic kidney disease Care Plan Patient has chronic kidney disease No Yesenia Sanon Weekly blood pressure task Care Plan Weekly blood pressure task No Yesenia Sanon Patient has chronic kidney disease Care Plan Patient has chronic kidney disease No Yesenia Sanon Weekly blood pressure task Care Plan Weekly blood pressure task No Russell Dumas Weekly blood pressure task Care Plan Weekly blood pressure task No Russell Dumas Patient has chronic kidney disease Care Plan Patient has chronic kidney disease No Russell Dumas Patient has chronic kidney disease Care Plan Patient has chronic kidney disease No Russell Dumas Weekly blood pressure task Care Plan Weekly blood pressure task No Bridgette Gandhi MD Weekly blood pressure task Care Plan Weekly blood pressure task No Bridgette Gandhi MD Patient has chronic kidney disease Care Plan Patient has chronic kidney disease No Bridgette Gandhi MD Patient has chronic kidney disease Care Plan Patient has chronic kidney disease No Bridgette Gandhi MD Weekly blood pressure task Care Plan Weekly blood pressure task No Yesenia Sanon Weekly blood pressure task Care Plan Weekly blood pressure task No Yesenia Sanon Patient has chronic kidney disease Care Plan Patient has chronic kidney disease No Yesenia Sanon Patient has chronic kidney disease Care Plan Patient has chronic kidney disease No Yesenia Sanon Procedures Procedure Name Priority Date/Time Associated Diagnosis Comments POCT GLYCOSYLATED HEMOGLOBIN (HGB A1C) Routine 01/31/2025 11:15 AM EDT Controlled type 2 diabetes mellitus without complication, without long-term current use of insulin ([facility]) PROPHYLAXIS - ADULT Routine 01/06/2025 1 0:00 AM EDT Dental plaque ALBUMIN, RANDOM URINE W/CREATININE Routine 10/28/2024 9:15 AM EDT Controlled type 2 diabetes mellitus without complication, without long-term current use of insulin ([facility]) LIPID PANEL WITH REFLEX TO DIRECT LDL Routine 10/28/2024 9:15 AM EDT Controlled type 2 diabetes mellitus without complication, without long-term current use of insulin ([facility]) BITEWING - SINGLE RADIOGRAPHIC IMAGE [...] 9:15 AM EDT) Triglycerides 125 <150 mg/dL [facility] Comment:Desirable Triglyceri de: less than 150 mg/dLBorderline High Triglyceride 150-199 mg/dLHigh Triglyceride: 200-499 mg/dLVery High Triglyceride: greater than or equal to 5OO mg/dL Cholesterol 126 <200 mg/dL [facility] Comment:Desirable Cholestero l: less than 200 mg/dLBorderline High Cholesterol: 200-239 mg/dLHigh Cholesterol: greater than 239 mg/dL LDL Cholesterol Calculated 58 <100 mg/dL [facility] Comment:Desirable LDL: less than 100 mg/dLNear Optimal/Above Optimal LDL: 110- 129 mg/dLBorderline High LDL: 130-159 mg/dLHigh LDL: 160-189 mg/dLVery High LDL: greater than or equal to 190 mg/dL HDL Cholesterol 43 >40 mg/dL [facility] Comment:Desirable HDL: great er than 40 mg/dL Note: This HDL assay may give artificially low results in patients with liver disease. Blood 10/28/2024 9:15 AM EDT 10/28/2024 11:15 AM EDT us Bridgette Gandhi MD LAB BLOOD ORDERABLES Final Resul t Performing Organization Address City/[facility] Co de Phone Number [facility] [address] [place] [phone] * (ABNORMAL) Albumin, Random Urine W/Creatinine (10/28/2024 9:15 AM EDT) Creatinine, Urine 247.97 mg/dL [facility] Microalbumin Urine 145.0 mg/L [facility] Microalbum Creatinine Ratio Ur 58.4(H) <30 ug/mg cr [facility] Comment:Albumin/Creatinine R atio Reference Ranges: Normal: < 30 ug/mg creatinine Microalbuminuria: 30 - 300 ug/mg creatinineClinical Albuminuria: > 300 ug/mg creatinine Urine 10/28/2024 9:15 AM EDT 10/28/2024 11:14 AM EDT us Brigdette Gandhi MD LAB URINE ORDERABLES Final Resul t Performing Organization Address City/[facility]/ZIP Co de Phone Number [facility] [address] [place] [phone] * Hm Diabetes Eye Exam (06/29/2024) Eye Exam Normal Normal 06/29/2024 us Historical Provider HEALTH MAINTENANCE Final Result * CT Lung Screening Low dose (12/22/2023 9:58 AM EDT) Anatomical Region Laterality Modality Lung Computed Tomogra phy 12/22/2023 9:58 AM EDT Narrative 12/27/2023 11:40 PM EDT [address] [address] [address] Scan Report Signed Patient: Bharathi Walsh R#: [id number] : 1945 Acct:[id number] Age/Sex: 78 / M ADM Date: 12/22/23 Loc: HO.CT Attending Dr: Tc Castillo MD Ordering Physician: Tc Castillo MD Date of Service: 12/22/23 Procedure(s): CT lung screening Accession Number(s): [id number] cc: Tc Castillo MD; Bridgette Gandhi MD [...] for CT CHEST LOW DOSE CANCER SCREENING ([id number]) can be placed. Dictated By: Kun Enciso MD Signed By: <Electronically signed by Kun Enciso MD in OV> 12/27/23 2336 DD/ 0958 TD/TT: Inbound Call Center Representative: SS Procedure Note Donotuseinterpreter, Image - 12/27/[address] [place] [address] [address] Scan Report Signed Patient: Shalom Walsh R#: [id number] : 6Acct:[id number] Age/Sex: 78 / MADM Date: 12/22/23 Loc: HO.CT Attending Dr: Tc Castillo MD Ordering Physician: Tc Castillo MD Date of Service: 12/22/23 Procedure(s): CT lung screening Accession Number(s): [id number] cc: Tc Castillo MD; Bridgette Gandhi MD [...] for CT CHEST LOW DOSE CANCER SCREENING ([id number]) can be placed. Dictated By: Kun Enciso MD Signed By: <Electronically signed by Kun Enciso MD in OV> 12/27/23 7976 DD/ 5695 TD/TT: Inbound Call Center Representative: ANGELA [facility] External Provider IMG CT PROCEDURES Edited Result - Final from Last 3 Months or Most Recently Relevant to Health Maintenance Additional Health Concerns Active Problems Noted Date Diagnosed Date Help patients manage their type 2 diabetes 07/25 Weekly blood pressure task 07/25/2025 Help patients manage their type 2 diabetes 07/25 Patient has chronic kidney disease 07/25/2025 Weekly blood pressure task 07/25/2025 Patient has chronic kidney disease 07/25/2025 Weekly blood pressure task 08/03/2025 Weekly blood pressure task 08/03/2025 Patient has chronic kidney disease 08/03/2025 Patient has chronic kidney disease 08/03/2025 Weekly blood pressure task 08/04/2025 Weekly blood pressure task 08/04/2025 Patient has chronic kidney disease 08/04/2025 Patient has chronic kidney disease 08/04/2025 Weekly blood pressure task 08/07/2025 Weekly blood pressure task 08/07/2025 Patient has chronic kidney disease 08/07/2025 Patient has chronic kidney disease 08/07/2025 Insurance [facility]TE [facility] - [facility] * Guarantor: Bharathi Walsh Account Type Relation to Patient Date of Phone Billing Address Personal/Family Self [address] [place] [address] * Guarantor: Bharathi Walsh Account Type Relation to Patient Date of Phone Billing Address Personal/Family Self [address] [place] [address] * Guarantor: Bharathi Walsh Account Type Relation to Patient Date of Phone Billing Address Personal/Family Self [address] [place] [address] Care Teams Backpackers Manager Relationship Specialty Start Date End Date Bridgette Gandhi MD [address] [place] [address] PCP - General Family Medicine 07/01/12 Ramón Bolaños, MollyD [address] [place] [address] Pharmacist Internal Medicine 11/18/23
--- OUTSIDE RECORDS SUMMARY | 2025-08-11 10:01 | XMS_ITS | Encounter Summary ---
Author Organization [employer] Address [address] [facility] [address] [place] [address] Care Team Providers Care Wood Patternmaker Apprentice Name Role Phone Bridgette Gandhi MD Primary Care Provider [phone] Ramón Bolaños PharmD Unavailable [phone] Encounter Details Date Type Department Care Team (Late st Contact Info) Description 02/17/2025 Orders Only [facility] MEDICINE [address] [place], [place] [phone] Bridgette Gandhi MD [address] [place], [place] [phone] Osteoporosis screening (Primary Dx) Social History Tobacco [...] Description 08/21/2025 11:00 AM EST Office Visit [facility] MEDICINE [address] [place] [address] Bridgette Gandhi MD [address] [place] [address] documented as of this encounter Goals Goal [...] documented as of this encounter Care Teams Wood Patternmaker Apprentice Relationship Specialty Start Date End Date Bridgette Gandhi MD [address] [place] [address] PCP - General Family Medicine 07/01/12 Ramón Bolaños, MollyD [address] [place] [address] Pharmacist Internal Medicine 11/18/23 documented as of this encounter
--- OUTSIDE RECORDS SUMMARY | 2025-08-11 10:01 | XMS_ITS | Clinical Summary ---
Author Organization [facility] Address [address] [place], [place] [phone] Phone Care Team Providers Care Bed Machine Operator Name Role Phone Unknown, Unknown Primary [...] file Medical Devices Not on file [place] [address] [place] [address] [place] [address] MEDICARE REPLACEMENT MEDICARE REPLACEMENT [place] [id number] [place] [address] [place] [place] [address] MEDICARE REPLACEMENT MEDICARE REPLACEMENT [facility] MEDICARE REPLACEMENT [facility] MEDICARE REPLACEMENT [facility] MEDICARE REPLACEMENT Care Teams Bed Machine Operator Relationship Specialty Start Date End Date Unknown, Unknown, PCP - General 05/23/19 Additional Source Comments The information contained in this document represents components of the legal health record. It is not the complete legal health record[facility]
--- OUTSIDE RECORDS SUMMARY | 2025-08-11 10:01 | XMS_ITS | Encounter Summary ---
Author Organization [employer] Address 75 [facility] 7t [place] [address] Care Team Providers Care Field Collector Name Role Phone Bridgette Gandhi MD Primary Care Provider [phone] Ramón Bolaños PharmD Unavailable [phone] Reason for Visit * Reason Onset Date Comments ER Follow-up 05/26/2024 Nurse Triage 05/26/2024 Encounter Details Date Type Department Care Team (Late st Contact Info) Description 05/26/2024 Telephone [facility] MEDICINE [address] [place], [place] [phone] Bridgette Gandhi MD [address] [place], [place] [phone] ER Follow-up; Nurse Triage Social History Tobacco [...] Please assist with obtaining discharge summary for [facility] ED visit on 05/25/24 for provider review prior to upcoming appointment. Future Appointments Date Time Provider Department Center 05/27/2024 8:45 AM Jeremias Gong MD [facility] 01/11/2025 10:00 AM Susy Dixon PharmD [facility] * Telephone Encounter - Danii Hope [...] 01/11/2025 10:00 AM Susy Dixon PharmD MEDICINE [facility] Insurance verified as active per [...] ED visit on : Date: 05/25/24 Hospital: [facility] Seen for: Severe hip and [...] 11:00 AM EST Office Visit [facility] MEDICINE [address] [place] [address] Bridgette Gandhi MD [address] [place] [address] documented as of this encounter Goals Goal [...] documented as of this encounter Care Teams Field Collector Relationship Specialty Start Date End Date Bridgette Gandhi MD [address] [place] [address] PCP - General Family Medicine 07/01/12 Ramón Bolaños, MollyD [address] [place] [address] Pharmacist Internal Medicine 11/18/23 documented as of this encounter
--- OUTSIDE RECORDS SUMMARY | 2025-08-11 10:01 | XMS_ITS | Encounter Summary ---
Author Organization [employer] Address [address] [facility] [address] 7[address] [place] [address] Care Team Providers Care Showroom Sales Consultant Name Role Phone Bridgette Gandhi MD Primary Care Provider [phone] Ramón Bolaños PharmD Unavailable [phone] Encounter Details Date Type Department Care Team (Late st Contact Info) Description 09/22/2023 Orders Only [facility] MEDICINE [address], [place] [phone] Bridgette Gandhi MD [address] [place], [place] [phone] Chronic obstructive pulmonary disease, unspecified COPD type [...] Description 08/21/2025 11:00 AM EST Office Visit [facility] MEDICINE [address] [place] [phone] Bridgette Gandhi MD [address] [place] [address] documented as of this encounter Visit Diagnoses Diagnosis Chronic obstructive pulmonary disease, unspecified COPD type (CMS/HCC) (HCC)- Primary Obstructive sleep apnea syndrome Obstructive sleep apnea (adult) (pediatric) documented in this encounter Additional Health Concerns Assessment Noted Time PHQ-9 Depression Total Score: 5 09/11/19 23 10:25 AM EST documented as of this encounter Care Teams Showroom Sales Consultant Relationship Specialty Start Date End Date Bridgette Gandhi MD [address] [place] [phone] PCP - General Family Medicine 07/01/12 Ramón Bolaños, PharmD [address] [place] [phone] Pharmacist Internal Medicine 11/18/23 documented as of this encounter
--- OUTSIDE RECORDS SUMMARY | 2025-08-11 10:01 | XMS_ITS | Encounter Summary ---
Author Organization [employer] Address 75 [facility] 7t [place] [address] Care Team Providers Care Abrasive Wheel Molder Name Role Phone Bridgette Gandhi MD Primary Care Provider [phone] Ramón Bolaños PharmD Unavailable [phone] Reason for Visit * Reason Onset Date Comments Referral 08/27/2023 Encounter Details Date Type Department Care Team (Late st Contact Info) Description 08/27/2023 Telephone [facility] MEDICINE [address] [place], [place] [phone] Bridgette Gandhi MD [address] [place], [place] [phone] Referral Social History Tobacco Use Types Packs/Day [...] 08/27/2023 1:13 PM EST TC from pt's daughter/FIELD COURT RESEARCHER requesting a renewal of Referral Date of original referral: 09/11/23 Location: [facility] (unsure of exact location) Date: 09/03/23 Time: 3:15 Fax: N/A Specialty: Orthopedic documented in this encounter Plan of Treatment Upcoming Encounters Date Type Department Care Team (Late st Contact Info) Description 08/21/2025 11:00 AM EST Office Visit [facility] MEDICINE [address] [place] [address] Bridgette Gandhi MD [address] [place] [address] documented as of this encounter Visit Diagnoses Not on filedocumented in this encounter Additional Health Concerns Assessment Noted Time PHQ-9 Depression Total Score: 5 09/11/19 23 10:25 AM EST documented as of this encounter Care Teams Abrasive Wheel Molder Relationship Specialty Start Date End Date Bridgette Gandhi MD [address] [place] [phone] PCP - General Family Medicine 07/01/12 Ramón Bolaños, MollyD [address] [place] [phone] Pharmacist Internal Medicine 11/18/23 documented as of this encounter
--- OUTSIDE RECORDS SUMMARY | 2025-08-11 10:01 | XMS_ITS | Encounter Summary ---
Author Organization [email or web address] [facility] Address [address] [place] [address] 7t [place] [address] Care Team Providers Care Rubbing Bed Operator Name Role Phone Bridgette Gandhi MD Primary Care Provider Ramón Bolaños PharmD Unavailable Encounter Details Date Type Department Care Team (Late st Contact Info) Description 07/30/2022 Abstract [facility] ADULT DENTAL [address] [place] [address] Bubba, Lydia [address] [place] [address] Social History Tobacco Use Types Packs/Day Years [...] 08/21/2025 11:00 AM EST Office Visit [facility] MEDICINE [address] [place], [place] [phone] Bridgette Gandhi MD [address] [place] [address] documented as of this encounter Procedures Procedure [...] on filedocumented in this encounter Care Teams Rubbing Bed Operator Relationship Specialty Start Date End Date Bridgette Gandhi MD [address] [place] [address] PCP - General Family Medicine 07/01/12 Ramón Bolaños PharmD [address] [place] [address] Pharmacist Internal Medicine 11/18/23 documented as of this encounter
--- OUTSIDE RECORDS SUMMARY | 2025-08-11 10:01 | XMS_ITS | Clinical Summary ---
Author Organization [facility] [address] [place] [address] Phone Care Team Providers Care Limo Driver Name Role Phone Bridgette Gandhi MD Primary Care Provider [phone] Allergies Active Allergy Reactions Criticality Noted Date [...] Department Care Team Description 08/04/2025 Orders Only [facility] [address] [place] [address] Gómez Colunga MD Hypertension; Type 2 diabetes [...] Care Team (Late st Contact Info) Description 09/07/2025 1:15 PM EST Office Visit [facility] [address] [place] [address] Gómez Colunga MD [address] [facility] [address] [place] [address] Health Maintenance Due Date Last Done Comments Diabetes: Ophthalmology Exam 09/17/2020 Diabetes: Pedal Pulse Checked 09/17/2020 Diabetes: Sensory Foot Exam 09/17/2020 Diabetes: Visual Foot Exam 09/17/2020 Influenza Vaccine (#1) 2025 0, 06/13/2019, 05/24/2018, Additional history exists Diabetes: Hemoglobin A1C 05/03/202501/31/2 025, 11/01/2024, 04/07/2024, Additional history exists Pneumococcal Vaccine: 50+ Years Completed 04/13/2015, 08/08/2013, 05/07/2006 Pneumococcal Vaccine: Peds (0 to 5 Years) and At-Risk Patients (6 to 49 Years) Discontinued 04/13/2015, 08/08/2013, 05/07/2006 Hepatitis B Vaccine Aged Out 09/28/2017, 06/29/2017, 03/24/2017 No longer eligible based on patient's age to complete this topic Insurance [facility] ([id number]) [facility] ([id number]) Care Teams Limo Driver Relationship Specialty Start Date End Date Bridgette Gandhi MD [address] [place] [phone] PCP - General 08/27/20
--- OUTSIDE RECORDS SUMMARY | 2025-08-11 10:01 | XMS_ITS | Encounter Summary ---
Demographics Address [address] [place] [address] Mobile Phone Home Phone Work Phone Preferred Language es Marital Status Pentecostal Affiliation Unknown Race Other Race Ethnic Group Unknown Author Organization [employer] Address [address] 7t [place] [address] Care Team Providers Care Horse Stud Manager Name Role Phone Bridgette Gandhi MD Primary Care Provider [phone] Ramón Bolaños PharmD Unavailable [phone] Reason for Referral * Consultation (Routine) - Closed Specialty Diagnoses / Procedures Referred By Jj bro Referred To Contact Orthopaedic Surgery Diagnoses Primary osteoarthritis of both hips Primary osteoarthritis of both knees Bridgette Gandhi MD [address] [place] [address] Phone: tel: fax: [facility] [address] [place] [address] [address] [place] [address] Phone: tel: fax: Referral ID Status Reason Start Date Expiration Date V isits Requested Visits Authorized [id number] Closed Specialty Services Required 02/23/2024 02/22/2025 1 1 Encounter Details Date Type Department Care Team (Late st Contact Info) Description 02/23/2024 Orders Only [facility] MEDICINE [address] [place] [address] Bridgette Gandhi MD [address] [place], [place] [phone] Primary osteoarthritis of both hips (Primary Dx); [...] Upcoming Encounters Date Type Department Care Team ([facility] st Contact Info) Description 08/21/2025 11:00 AM EST Office Visit [facility] MEDICINE [address] [place] [address] Bridgette Gandhi MD [address] [place] [phone] Scheduled Referrals Name Type Priority Associated Diagnoses [...] documented as of this encounter Care Teams Horse Stud Manager Relationship Specialty Start Date End Date Bridgette Gandhi MD [address] [place] [phone] PCP - General Family Medicine 07/01/12 Ramón Bolaños, Bradley [address] [place] [address] Pharmacist Internal Medicine 11/18/23 documented as of this encounter
--- OUTSIDE RECORDS SUMMARY | 2025-08-11 10:01 | XMS_ITS | Encounter Summary ---
Author Organization [employer] Address [address] 7t [place] [address] Care Team Providers Care Traffic Ii Manager Name Role Phone Bridgette Gandhi MD Primary Care Provider [phone] Ramón Bolaños PharmD Unavailable [phone] Encounter Details Date Type Department Care Team (Late st Contact Info) Description 06/26/2023 Abstract [facility] ADULT DENTAL [address] [place], [place] [phone] Amarjit Foster DDS [address] [place], [place] [phone] Social History Tobacco Use Types Packs/Day Years [...] 11:00 AM EST Office Visit [facility] MEDICINE [address] [place] [address] Bridgette Gandhi MD [address] [place] [address] documented as of this encounter Visit Diagnoses Not on filedocumented in this encounter Additional Health Concerns Assessment Noted Time PHQ-9 Depression Total Score: 5 09/11/19 23 10:25 AM EST documented as of this encounter Care Teams Traffic Ii Manager Relationship Specialty Start Date End Date Bridgette Gandhi MD [address] [place] [address] PCP - General Family Medicine 07/01/12 Ramón Bolaños, MollyD [address] [place] [address] Pharmacist Internal Medicine 11/18/23 documented as of this encounter
--- OUTSIDE RECORDS SUMMARY | 2025-08-11 10:01 | XMS_ITS | Encounter Summary ---
Author Organization [facility] Address [address] [place] [address] Phone Care Team Providers Care Wire Coating Operator Metal Name Role Phone Unknown, Unknown Primary Care Provider Terrence montano Encounter Details Date Type Department Care Team (Late st Contact Info) Description 05/30/2019 Ancillary Orders [facility] [address] [place] [address] [place] [address] Sylvester Hdez, DO [address] [place] [address] Bradycardia Social History Tobacco Use Types Packs/Day [...] dysrhythmias documented in this encounter Care Teams Wire Coating Operator Metal Relationship Specialty Start Date End Date Unknown, Unknown, PCP - General 05/23/19 documented as of this encounter Additional Source Comments The information contained in this document represents components of the legal health record. It is not the complete legal health record.[facility]
--- OUTSIDE RECORDS SUMMARY | 2025-08-11 10:01 | XMS_ITS | Encounter Summary ---
Author Organization [employer] Address [address] 7t [place] [address] Care Team Providers Care Ornamental Ironworker Helper Name Role Phone Bridgette Gandhi MD Primary Care Provider [phone] Ramón Bolaños PharmD Unavailable [phone] Reason for Visit * Reason Comments Med Refill Encounter Details Date Type Department Care Team (Late st Contact Info) Description 06/07/2023 Refill [facility] [address] [place], [place] [phone] Bridgette Gandhi MD [address] [place], [place] [phone] Social History Tobacco Use Types Packs/Day Years [...] Description 08/21/2025 11:00 AM EST Office Visit [facility] [address] [place] [address] Bridgette Gandhi MD [address] [place] [address] documented as of this encounter Visit Diagnoses Not on filedocumented in this encounter Additional Health Concerns Assessment Noted Time PHQ-9 Depression Total Score: 5 09/11/19 23 10:25 AM EST documented as of this encounter Care Teams Ornamental Ironworker Helper Relationship Specialty Start Date End Date Bridgette Gandhi MD [address] [place] [address] PCP - General Family Medicine 07/01/12 Ramón Bolaños, MollyD [address] [place] [address] Pharmacist Internal Medicine 11/18/23 documented as of this encounter
--- OUTSIDE RECORDS SUMMARY | 2025-08-11 10:01 | XMS_ITS | Encounter Summary ---
Author Organization [employer] Address [address] 7t [place] [address] Care Team Providers Care Call Center Trainer Name Role Phone Bridgette Gandhi MD Primary Care Provider [phone] Ramón Bolaños PharmD Unavailable [phone] Encounter Details Date Type Department Care Team (Late st Contact Info) Description 08/28/2023 Orders Only [facility] MEDICINE [address] [place], [place] [phone] Bridgette Gandhi MD [address] [place], [place] [phone] Social History Tobacco Use Types Packs/Day Years [...] 08/21/2025 11:00 AM EST Office Visit [facility] MEDICINE [address] [place] [address] Bridgette Gandhi MD [address] [place] [address] documented as of this encounter Visit Diagnoses Not on filedocumented in this encounter Additional Health Concerns Assessment Noted Time PHQ-9 Depression Total Score: 5 09/11/19 23 10:25 AM EST documented as of this encounter Care Teams Call Center Trainer Relationship Specialty Start Date End Date Bridgette Gandhi MD [address] [place] [phone] PCP - General Family Medicine 07/01/12 Ramón Bolaños, Bradley [address] [place] [address] Pharmacist Internal Medicine 11/18/23 documented as of this encounter
--- OUTSIDE RECORDS SUMMARY | 2025-08-11 10:01 | XMS_ITS | Encounter Summary ---
Author Organization [employer] Address [address] [facility] 7t [place] [address] Care Team Providers Care Director Of Housing And Energy Services Name Role Phone Bridgette Gandhi MD Primary Care Provider Ramón Bolaños PharmD Unavailable Encounter Details Date Type Department Care Team (Late Contact Info) Description 04/30/2023 Abstract [facility] MEDICINE [address] [place] [address] Bridgette Gandhi MD [address] [place] [address] [phone] Social History Tobacco Use Types Packs/Day Years [...] Description 08/21/2025 11:00 AM EST Office Visit [facility] MEDICINE [address] [place] [address] Bridgette Gandhi MD 230 [place] [address] documented as of this encounter Procedures Procedure [...] of this encounter Care Teams Director Of Housing And Energy Services Relationship Specialty Start Date End Date Bridgette Gandhi MD [address] [place] [address] PCP - General Family Medicine 07/01/12 Ramón Bolaños, PharmD [address] [place] [address] Pharmacist Internal Medicine 11/18/23 documented as of this encounter
--- OUTSIDE RECORDS SUMMARY | 2025-08-11 10:01 | XMS_ITS | Encounter Summary ---
Author Organization [employer] Address [address] [facility] 7t [place] [address] Care Team Providers Care Manager Shipping Name Role Phone Bridgette Gandhi MD Primary Care Provider Ramón Bolaños PharmD Unavailable [phone] Encounter Details Date Type Department Care Team (Latest Contact Info) Description 06/20/2022 Abstract [facility] CONVERSIONS Dental, Provider, DDS Social [...] Description 08/21/2025 11:00 AM EST Office Visit [facility] MEDICINE [address] [place], [place] [phone] Bridgette Gandhi MD [address] [place], [place] [phone] documented as of this encounter Visit Diagnoses Not on filedocumented in this encounter Care Teams Manager Shipping Relationship Specialty Start Date End Date Bridgette Gandhi MD [address] [place], [place] [phone] PCP - General Family Medicine 07/01/12 Ramón Bolaños, PharmD [address] [place] [address] Pharmacist Internal Medicine 11/18/23 documented as of this encounter
--- OUTSIDE RECORDS SUMMARY | 2025-08-11 10:01 | XMS_ITS | Encounter Summary ---
Author Organization [employer] Address [address] [facility] 7t [place] [address] Care Team Providers Care Memorial Counselor Name Role Phone Bridgette Gandhi MD Primary Care Provider [phone] Ramón Bolaños PharmD Unavailable [phone] Reason for Visit * Reason Onset Date Comments Lab Orders 08/03/2025 Encounter Details Date Type Department Care Team (Late st Contact Info) Description 08/03/[address] [facility] [place] [facility] MEDICINE 230 [place], [place] [phone] Bridgette Gandhi MD [address] [place], [place] [phone] Lab Orders Social History Tobacco Use Types Packs/Day Years [...] the past 12 months, has t he [employer], gas, oil or water [address] [employer] threatened to shut off services in your [...] encounter Miscellaneous Notes * Telephone Encounter - Russell Dumas - 08/03/2025 4:43 PM EST Tc from daughter calling in regards to labs stating pt attempted to have labs done recently but wasinformed there are no active labs at the moment. Please contact pt at [phone]. (Bahraini Speaker) documented in this encounter Plan of Treatment Upcoming Encounters Date Type Department Care Team (Late st Contact Info) Description 08/21/2025 11:00 AM EST Office Visit [facility] [place] MEDICINE [address] [place], [place] [phone] Bridgette Gandhi MD [address] [place] [address] documented as of this encounter Goals Goal Patient Goal Type Associated Problems Recent Progress Patient-Stated? Author Blood Pressure < 140/90 Blood Pressure 136/72(2024 11:04 AM EDT) No Ramón Bolaños PharmD Hemoglobin A1c < 7 Result Component 7.5( 11:15 AM EDT) No Ramón Bolaños PharmD Help patients manage their type 2 diabetes Care Plan Help patients manage their type 2 diabetes No Fab Yesenia Weekly blood pressure task Care Plan Weekly blood pressure task No Fab, Yesenia Help patients manage their type 2 diabetes Care Plan Help patients manage their type 2 diabetes No Fab, Yesenia Patient has chronic kidney disease Care Plan Patient has chronic kidney disease No Fab, Yesenia Weekly blood pressure task Care Plan Weekly blood pressure task No Fab, Yesenia Patient has chronic kidney disease Care Plan [...] has chronic kidney disease No Russell Dumas documented as of this encounter Visit Diagnoses Not on filedocumented in this encounter Additional Health Concerns Active Problems Noted Date [...] 08/03/2025 Patient has chronic kidney disease 08/03/2025 Assessment Noted Time PHQ-9 Depression Total Score: 4 05/03/20 25 10:42 AM EDT documented as of this encounter Care Teams Memorial Counselor Relationship Specialty Start Date End Date Bridgette Gandhi MD [address] [place] [address] PCP - General Family Medicine 07/01/12 Ramón Bolaños PharmD [address] [place] [address] Pharmacist Internal Medicine 11/18/23 documented as of this encounter
--- OUTSIDE RECORDS SUMMARY | 2025-08-11 10:01 | XMS_ITS | Encounter Summary ---
Author Organization [employer] Address [address] [facility] 7t [place] [address] Care Team Providers Care Song Plugger Name Role Phone Bridgette Gandhi MD Primary Care Provider Ramón Bolaños PharmD Unavailable Encounter Details Date Type Department Care Team (Late st Contact Info) Description 08/04/2025 Orders Only [facility] MEDICINE [address] [place], [place] [phone] Bridgette Gandhi MD [address] [place], [place] [phone] Hypertension, unspecified type (Primary Dx); Dyslipidemia; Controlled type 2 diabetes mellitus without complication, without long-term current use of insulin (HCC); Memory difficulties; Anemia, unspecified type Social History Tobacco Use Types Packs/Day Years [...] Description 08/21/2025 11:00 AM EST Office Visit [facility] MEDICINE [address] [place] [address] Bridgette Gandhi MD [address] [place] [address] Scheduled Orders Name Type Priority Associated Diagnoses Orde r Schedule Vitamin B12 (Cobalamin) and Folate Panel, Serum Lab Routine Memory difficulties Expected: 08/04/2025 (Approximate), Expires: 08/04/2026 Lipid Panel with Reflex to Direct LDL Lab Routine Dyslipidemia Controlled type 2 diabetes mellitus without complication, without long-term current use of insulin (HCC) Anemia, unspecified type Expected: 08/04/2025 (Approximate), Expires: 08/04/2026 Albumin, Random Urine W/Creatinine Lab Routine Controlled type 2 diabetes mellitus without complication, without long-term current use of insulin (HCC) Expected: 08/04/2025 (Approximate), Expires: 08/04/2026 Comprehensive Metabolic Panel Lab Routine Hypertension, unspecified type Dyslipidemia Expected: 08/04/2025 (Approximate), Expires: 08/04/2026 TSH with Reflex to Free T4 Lab Routine Memory difficulties Anemia, unspecified type Expected: 08/04/2025 (Approximate), Expires: 08/04/2026 CBC auto differential Lab Routine Anemia, unspecified type Expected: 08/04/2025 (Approximate), Expires: 08/04/2026 Ferritin Lab Routine Anemia, unspecified type Expected: 08/04/2025 (Approximate), Expires: 08/04/2026 Iron And Total Iron Binding Capacity Lab Routine Anemia, unspecified type Expected: 08/04/2025, Expires: 08/04/2026 Reticulocyte Count Lab Routine Anemia, unspecified type Expected: 08/04/2025, Expires: 08/04/2026 documented as of this encounter Goals Goal Patient Goal Type Associated Problems Recent Progress Patient-Stated? Author Blood Pressure < 140/90 Blood Pressure 136/72(2024 11:04 AM EDT) No Ramón Bolaoñs, PharmD Hemoglobin A1c < 7 Result Component [...] Care Plan Patient has chronic kidney disease Bridgette Rawls MD Patient has chronic kidney disease Care Plan Patient has chronic kidney disease No Bridgette Gandhi MD documented as of this encounter Visit Diagnoses Diagnosis Hypertension, unspecified type- Primary Dyslipidemia Other and unspecified hyperlipidemia Controlled type 2 diabetes mellitus without complication, without long-term current use of insulin ([facility]) Memory difficulties Memory loss Anemia, unspecified type documented in this encounter Additional Health Concerns Active [...] 08/04/2025 Patient has chronic kidney disease 08/04/2025 Assessment Noted Time PHQ-9 Depression Total Score: 4 05/03/20 25 10:42 AM EDT documented as of this encounter Care Teams Song Plugger Relationship Specialty Start Date End Date Bridgette Gandhi MD [address] [place] [address] PCP - General Family Medicine 07/01/12 Ramón Bolaños, MollyD [address] [place] [address] Pharmacist Internal Medicine 11/18/23 documented as of this encounter
--- OUTSIDE RECORDS SUMMARY | 2025-08-11 10:01 | XMS_ITS | Encounter Summary ---
Author Organization [employer] Address [address] 7t [place] [address] Care Team Providers Care Business Manager Name Role Phone Bridgette Gandhi MD Primary Care Provider Ramón Bolaños PharmD Unavailable Encounter Details Date Type Department Care Team (Late st Contact Info) Description 07/31/2022 Abstract [facility] ADULT DENTAL [address] [place] [address] Bubba, Lydia [address] [place] [address] Social History Tobacco Use Types Packs/Day Years [...] 11:00 AM EST Office Visit [facility] MEDICINE [address] [place] [address] Bridgette Gandhi MD 230 [place] [address] documented as of this encounter Visit Diagnoses Not on filedocumented in this encounter Care Teams Business Manager Relationship Specialty Start Date End Date Bridgette Gandhi MD [address] [place] [address] PCP - General Family Medicine 07/01/12 Ramón Bolaños, MollyD [address] [place] [address] Pharmacist Internal Medicine 11/18/23 documented as of this encounter
[2025-08-11 11:12] VITALS: BP 130/68; PULSE 61; TEMP 36.6; O2SAT 96; BMI 38.7
--- NOTE | 2025-08-11 11:12 | AM.OFFWIN_ITS ---
Intake Vital Signs 08/11/25 11:12 Height 5 ft 6 in Weight 240 lb BMI 38.7 BP 130/68 Blood Pressure Location Lt brachial Position Sitting Pulse 61 Pulse Source Pulse Oximeter Temp 97.8 F Temp Source Oral Pulse Oximetry (%) 96 Oxygen Delivery Method Room Air Intake Visit Reasons: EP Phlegm, cough Intake Note: Patient presents c/o chest congestion, SOB/wheezing, phlegm, cough, body aches x3 days. Patient Tobacco Use Status: Former Tobacco user Allergies environmental allergies Allergy (Severe, Verified 08/11/25 11:17) coughing and sneezing Penicillins Allergy (Intermediate, Verified 08/11/25 11:17) RASH Carbapenems Allergy (Unknown, Verified 08/11/25 11:17) Unknown Cephalosporins Allergy (Unknown, Verified 08/11/25 11:17) Unknown HPI HPI Comments History of Present Illness Details History of Present Illness The patient is a 79-year-old male with a past medical history of asthma, SHANON, COPD, hypertension, type 2 diabetes mellitus, presenting with his daughter for cough and shortness of breath. Patient speaks primarily Armenian. Patient requests that his daughter translates and declines healthcare or medical. - The patient has experienced episodes o f illness over the past month, with recent onset of cough approximately 2-3 days prior to presentation. - He also has associated runny nose, con gestion, and occasional wheezing. - Patient's daughter reports that he has an albuterol inhaler at home, however has not used it. - He is also on Anoro Ellipta which he h as been taking daily - Patient's daughter reports that he had an coughing attack the other day which caused him to have a brief episode of dizziness. - Denies fever, nausea, vomiting, or korina rrhea. Review of Systems Constitutional: Negative for fevers, chills HENT: Reports congestion, rhinorrhea, Denies sore throat, ear pain Respiratory: Reports cough and intermittent wheezing. Cardiac: Negative for chest pain Gastrointestinal: Negative for abdominal pain, nausea, vomiting, diarrhea, Musculoskeletal: Reports myalgias, Physical Exam General Appearance: Normal appearance, well developed. No acute distress HEENT: Normocephalic, atraumatic. External ears and ear canals normal. TM without erythema or bulging. Oropharynx clear without erythema or exudate. Cardiac: Regular rate and rhythm. No murmurs. Pulmonary: No respiratory distress. Speaking in full sentences. Clear to auscultation bilaterally. No wheezing or crackles. Musculoskeletal: Moving all extremities spontaneously and against gravity Mental Status: Alert and Oriented x 3 Psychiatric: Normal mood. Normal affect. 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 Father No problems noted. Brother CAD (coronary artery disease) Sister Alzheimer disease Social History Household Members: Other Household Members Other:: 2 roomates Housing: Apartment Are you a primary health care analyst to a significant other at home: No Do you presently have visiting nurse or other home services: Yes Alcohol intake: never Patient Tobacco Use Status: Former Tobacco user Cigarette Packs Per Day: 0.5 Cigarettes Per Day: 10.0 Years Smoked: 60 +/- , quit- Oct 12 2023 Physical Exam Vital Signs: Last Vital Signs Temp 97.8 F 08/11/25 11:12 Pulse 61 08/11/25 11:12 BP 130/68 08/11/25 11:12 Pulse Ox 96 08/11/25 11:12 Oxygen Delivery Method Room Air 08/11/25 11:12 BMI result Body Mass Index 38.7 Assessment & Plan Assessment & Plan (1) Viral URI: Code(s): J06.9 - Acute upper respiratory infection, unspecified Plan - Patient with a known history of asthma, COPD, and SHANON presents with rhinorrhea, congestion, and intermittent wheezing. - Physical exam reveals clear lungs to auscultation bilaterally. He is saturating well and in no respiratory distress. - Chest x-ray does not show any evidence of acute pathology - Suspect viral etiology given his symptoms - A COVID/flu/RSV test was obtained. - Albuterol inhaler use is recommended on a needed basis to manage symptoms, especially when he notices wheezing or dyspnea - Discussed benefits versus the risks of steroids at this time. He is not currently wheezing and is saturating well on room air. After shared decision- making, we will hold off on steroids due to history of type 2 diabetes mellitus. - Discussed mucinex to help with symptoms. - Patients should maintain hydration and rest, monitoring for any new or worsening symptoms. - Discussed follow-up if worsening symptoms such as new fevers, increasing shortness of breath, requiring inhaler >4 hours, or chest pain. Patient was informed and verbally consented to the use of an ambient scribe for clinic note documentation during the visit. Orders: Orders XR chest 2V 08/11/25 R05.9 - Cough, unspecified SARS-CoV2/FLU/RSV 08/11/25 R05.9 - Cough, unspecified Coding Level of Care Code Est Pt Level 3 (82249) Diagnoses Viral URI J06.9
== END 2025-08-11 12:28 | disposition home or self-care (01) ==
PROVIDERS: PCP Family Medicine; Visit Provider Family Medicine
DX: J06.9 Acute upper respiratory infection, unspecified (principal)

== ENCOUNTER 2025-08-11 11:37 | Outpatient (REF) | payer OTHER, SELFPAY ==
[2025-08-11 15:32] LABS: Resp Syncy Virus RNA Qual PCR NEGATIVE (Negative); SARS COV2 PCR INHOUSE NEGATIVE (Negative)
== END 2025-08-11 11:38 | disposition home or self-care (01) ==
LOC: HO.LAB 11:37
PROVIDERS: Visit Provider Family Medicine
DX: J10.1 Influenza due to other identified influenza virus with other respiratory manifestations (principal); R05.9 Cough, unspecified
CPT/HCPCS: 71046; 87637; 99212

== ENCOUNTER → 2025-08-11 11:40 | Outpatient (BNV) | payer OTHER, SELFPAY | PROVIDERS: PCP Family Medicine; Visit Provider Radiology Diagnostic Radiology | DX: R05.9 Cough, unspecified (principal) | CPT/HCPCS: 71046 ==

== ENCOUNTER 2025-08-16 08:54 | Outpatient (REF) | payer OTHER, SELFPAY ==
--- OUTSIDE RECORDS SUMMARY | 2025-08-16 09:00 | XMS_ITS | Encounter Summary ---
Author Organization [employer] [facility] Address [address] [place] [address] 7t [place] [address] Care Team Providers Care Tumbler Operator Name Role Phone Bridgette Gandhi MD Primary Care Provider [phone] Ramón Bolaños PharmD Unavailable Encounter Details Date Type Department Care Team (Late st Contact Info) Description 07/30/2022 Abstract [facility] [address] [place] [address] Bubba, Lydia [address] [place] [address] Social History Tobacco Use Types Packs/Day Years [...] AM EST Office Visit [facility] [address] [place], [place] [phone] Bridgette Gandhi MD [address] [place] [address] documented as of this encounter Procedures Procedure [...] on filedocumented in this encounter Care Teams Tumbler Operator Relationship Specialty Start Date End Date Bridgette Gandhi MD [address] [place] [address] PCP - General Family Medicine 07/01/12 Ramón Bolaños PharmD [address] [place] [address] Pharmacist Internal Medicine 11/18/23 documented as of this encounter
--- OUTSIDE RECORDS SUMMARY | 2025-08-16 09:00 | XMS_ITS | Encounter Summary ---
Author Organization [employer] Address [address] [facility] 7t [place] [address] Care Team Providers Care Gameroom Technician Name Role Phone Bridgette Gandhi MD Primary Care Provider [phone] Ramón Bolaños PharmD Unavailable [phone] Encounter Details Date Type Department Care Team (Late st Contact Info) Description 06/24/2024 Orders Only [facility] [address] [place], [place] [phone] Bridgette Gandhi MD [address] [place], [place] [phone] Social History Tobacco Use Types Packs/Day Years [...] the past 12 months, has t he [employer], gas, oil or water company threatened to [...] Description 08/21/2025 11:00 AM EST Office Visit [facility] [address] [place] [address] Bridgette Gandhi MD [address] [place] [address] documented as of this encounter Goals Goal [...] documented as of this encounter Care Teams Gameroom Technician Relationship Specialty Start Date End Date Bridgette Gandhi MD [address] [place] [address] PCP - General Family Medicine 07/01/12 Ramón Bolaños, MollyD [address] [place] [address] Pharmacist Internal Medicine 11/18/23 documented as of this encounter
--- OUTSIDE RECORDS SUMMARY | 2025-08-16 09:00 | XMS_ITS | Encounter Summary ---
Author Organization [employer] Address 75 [facility] 7t [place] [address] Care Team Providers Care Bonderizer Name Role Phone Bridgette Gandhi MD Primary Care Provider [phone] Ramón Bolaños PharmD Unavailable [phone] Reason for Visit * Reason Onset Date Comments Medication Question 06/24/2024 Encounter Details Date Type Department Care Team (Late st Contact Info) Description 06/24/[address] [facility] [address] [place], [place] [phone] Bridgette Gandhi MD [address] [place], [place] [phone] Medication Question Social History Tobacco Use Types [...] broke. If any questions contact pt at [phone] documented in this encounter Plan of Treatment Upcoming Encounters Date Type Department Care Team (Late st Contact Info) Description 08/21/2025 11:00 AM EST Office Visit [facility] [address] [place] [address] Bridgette Gandhi MD [address] [place], [place] [phone] documented as of this encounter Goals Goal [...] documented as of this encounter Care Teams Bonderizer Relationship Specialty Start Date End Date Bridgette Gandhi MD [address] [place] [address] PCP - General Family Medicine 07/01/12 Ramón Bolaños PharmD [address] [place] [address] Pharmacist Internal Medicine 11/18/23 documented as of this encounter
--- OUTSIDE RECORDS SUMMARY | 2025-08-16 09:00 | XMS_ITS | Encounter Summary ---
Author Organization [employer] Address [address] [facility] [address] 7t [place] [address] Care Team Providers Care Electrical Linesworker Name Role Phone Bridgette Gandhi MD Primary Care Provider [phone] Ramón Bolaños PharmD Unavailable [phone] Encounter Details Date Type Department Care Team (Late st Contact Info) Description 02/17/2025 Orders Only [facility] [address] [place], [place] [phone] Bridgette Gandhi MD 230 [place], [place] [phone] Osteoporosis screening (Primary Dx) Social History Tobacco [...] Description 08/21/2025 11:00 AM EST Office Visit [facility] 230 [place] [address] Bridgette Gandhi MD 230 [place] [address] documented as of this encounter Goals Goal [...] as of this encounter Care Teams Electrical Linesworker Relationship Specialty Start Date End Date Bridgette Gandhi MD [address] [place] [address] PCP - General Family Medicine 07/01/12 Ramón Bolaños, MollyD 230 [place] [address] Pharmacist Internal Medicine 11/18/23 documented as of this encounter
--- OUTSIDE RECORDS SUMMARY | 2025-08-16 09:00 | XMS_ITS | Encounter Summary ---
Author Organization [employer] Address [address] [facility] [address] 7t [place] [address] Care Team Providers Care Care Transitions Nurse Name Role Phone Bridgette Gandhi MD Primary Care Provider Ramón Bolaños PharmD Unavailable [phone] Encounter Details Date Type Department Care Team (Late st Contact Info) Description 10/09/2022 Orders Only [facility] 230 [place], [place] [phone] Bridgette Gandhi MD 230 [place], [place] [phone] Spinal stenosis of lumbar region with neurogenic [...] Description 08/21/2025 11:00 AM EST Office Visit [facility] [address] [place] [address] Bridgette Gandhi MD 230 [place] [address] documented as of this encounter Visit Diagnoses Diagnosis Spinal stenosis of lumbar region with neurogenic claudication- Primary documented in this encounter Additional Health Concerns Assessment Noted Time PHQ-9 Depression Total Score: 5 09/11/19 23 10:25 AM EST documented as of this encounter Care Teams Care Transitions Nurse Relationship Specialty Start Date End Date Bridgette Gandhi MD [address] [place] [address] PCP - General Family Medicine 07/01/12 Ramón Bolaños, MollyD [address] [place] [address] Pharmacist Internal Medicine 11/18/23 documented as of this encounter
--- OUTSIDE RECORDS SUMMARY | 2025-08-16 09:00 | XMS_ITS | Encounter Summary ---
Author Organization [employer] Address 75 [facility] 7t [place] [address] Care Team Providers Care Certified Registered Locksmith Name Role Phone Bridgette Gandhi MD Primary Care Provider [phone] Ramón Bolaños PharmD Unavailable [phone] Reason for Visit * Reason Onset Date Comments chartprep 08/15/2025 Encounter Details Date Type Department Care Team (Late st Contact Info) Description 08/15/2025 Telephone [facility] [address] [place], [place] [phone] Bridgette Gandhi MD 230 [place], [place] [phone] chartprep Social History Tobacco Use Types Packs/Day Years [...] the past 12 months, has t he [employer], gas, oil or water company threatened to [...] encounter Miscellaneous Notes * Telephone Encounter - Tanesha Vidal [place] - 08/15/2025 11:34 AM EST ..Chart Prep Labs: not done Images: done XR chest Vaccines due: Covid Due, Tdap Due, RSV in Pharmacy Due, and Shingles in pharmacy Due Referrals: Orthopedics appointment pending Screenings: Foot Exam Overdue care gaps: None documented in this encounter Plan of Treatment Upcoming Encounters Date Type Department Care Team (Late st Contact Info) Description 08/21/2025 11:00 AM EST Office Visit [facility] [address] [place] [address] Bridgette Gandhi MD [address] [place] [address] documented as of this encounter Goals Goal [...] Care Plan Weekly blood pressure task No Patricia Sanona Help patients manage their type 2 diabetes Care Plan Help patients manage their type 2 diabetes No Fab, Yesenia Patient has chronic kidney disease Care Plan Patient has chronic kidney disease No Patricia Sanona Weekly blood pressure task Care Plan Weekly blood pressure task No Patricia Sanona Patient has chronic kidney disease Care Plan [...] Care Plan Weekly blood pressure task No Tanesha Vidal [place] Weekly blood pressure task Care Plan Weekly blood pressure task No Tanesha Vidal [place] Patient has chronic kidney disease Care Plan Patient has chronic kidney disease No Tanesha Vidal [place] Patient has chronic kidney disease Care Plan Patient has chronic kidney disease No Tanesha Vidal [place] Weekly blood pressure task Care Plan Weekly blood pressure task No Tanesha Vidal [place] Weekly blood pressure task Care Plan Weekly blood pressure task No Tanesha Vidal [place] Patient has chronic kidney disease Care Plan Patient has chronic kidney disease No Tanesha Vidal [place] Patient has chronic kidney disease Care Plan Patient has chronic kidney disease No Tanesha Vidal [place] documented as of this encounter Visit Diagnoses [...] 08/07/2025 Patient has chronic kidney disease 08/07/2025 Weekly blood pressure task 08/15/2025 Weekly blood pressure task 08/15/2025 Patient has chronic kidney disease 08/15/2025 Patient has chronic kidney disease 08/15/2025 Weekly blood pressure task 08/15/2025 Weekly blood pressure task 08/15/2025 Patient has chronic kidney disease 08/15/2025 Patient has chronic kidney disease 08/15/2025 Assessment Noted Time PHQ-9 Depression Total Score: 4 05/03/20 25 10:42 AM EDT documented as of this encounter Care Teams Certified Registered Locksmith Relationship Specialty Start Date End Date Bridgette Gandhi MD [address] [place] [address] PCP - General Family Medicine 07/01/12 Ramón Bolaños, MollyD [address] [place] [address] Pharmacist Internal Medicine 11/18/23 documented as of this encounter
--- OUTSIDE RECORDS SUMMARY | 2025-08-16 09:00 | XMS_ITS | Encounter Summary ---
Author Organization [employer] Address 75 [facility] 7t [place] [address] Care Team Providers Care Forgeman Helper Name Role Phone Bridgette Gandhi MD Primary Care Provider Ramón Bolaños PharmD Unavailable [phone] Encounter Details Date Type Department Care Team (Late st Contact Info) Description 07/31/2022 Abstract [facility] [address] [place] [address] Bubba, Lydia [address] [place] [address] Social History Tobacco Use Types Packs/Day Years [...] Description 08/21/2025 11:00 AM EST Office Visit [facility] [address] [place] [address] Bridgette Gandhi MD [address] [place] [address] documented as of this encounter Visit Diagnoses Not on filedocumented in this encounter Care Teams Forgeman Helper Relationship Specialty Start Date End Date Bridgette Gandhi MD [address] [place] [address] PCP - General Family Medicine 07/01/12 Ramón Bolaños, MollyD [address] [place] [address] Pharmacist Internal Medicine 11/18/23 documented as of this encounter
--- OUTSIDE RECORDS SUMMARY | 2025-08-16 09:00 | XMS_ITS | Encounter Summary ---
Author Organization [employer] Address [address] [facility] 7t [place] [address] Care Team Providers Care Field Crop Farming Supervisor Name Role Phone Bridgette Gandhi MD Primary Care Provider [phone] Ramón Bolaños PharmD Unavailable [phone] Reason for Visit * Reason Comments Med Refill Encounter Details Date Type Department Care Team (Late st Contact Info) Description 08/14/2025 Refill [facility] [address] [place], [place] [phone] Bridgette Gandhi MD [address] [place], [place] [phone] Dyslipidemia Social History Tobacco Use Types Packs/Day [...] the past 12 months, has t he [employer], gas, oil or water company threatened to [...] Visit [facility] [address] [place] [address] Bridgette Gandhi MD [address] [place] [address] documented as of this encounter Goals Goal [...] Plan Patient has chronic kidney disease No Russlel Dumas Weekly blood pressure task Care Plan [...] has chronic kidney disease No Yesenia Sanon documented as of this encounter Visit Diagnoses [...] 08/07/2025 Patient has chronic kidney disease 08/07/2025 Assessment Noted Time PHQ-9 Depression Total Score: 4 05/03/20 25 10:42 AM EDT documented as of this encounter Care Teams Field Crop Farming Supervisor Relationship Specialty Start Date End Date Bridgette Gandhi MD [address] [place] [address] PCP - General Family Medicine 07/01/12 Ramón Bolaños, MollyD [address] [place] [address] Pharmacist Internal Medicine 11/18/23 documented as of this encounter
--- OUTSIDE RECORDS SUMMARY | 2025-08-16 09:00 | XMS_ITS | Clinical Summary ---
Author Organization [facility] [address] [place] [address] Phone Care Team Providers Care Social Work Lecturer Name Role Phone Bridgette Gandhi MD Primary Care Provider [phone] Allergies Active Allergy Reactions Criticality Noted Date [...] Only [facility] [address] [place] [address] Gómez Colunga [...] Visit [facility] [address] [place] [address] Gómez Colunga MD [address] [facility] [address] [place] [address] Health Maintenance Due Date Last Done Comments [...] patient's age to complete this topic Insurance [facility] ([id number]) [facility] ([id number]) Care Teams Social Work Lecturer Relationship Specialty Start Date End Date Bridgette Gandhi MD [address] [place] [address] PCP - General 08/27/20
--- OUTSIDE RECORDS SUMMARY | 2025-08-16 09:00 | XMS_ITS | Encounter Summary ---
Author Organization [employer] Address [address] [facility] 7t [place] [address] Care Team Providers Care Drug Coordinator Name Role Phone Bridgette Gandhi MD Primary Care Provider [phone] Ramón Bolaños PharmD Unavailable [phone] Reason for Visit * Reason Comments Med Refill Encounter Details Date Type Department Care Team (Late st Contact Info) Description 10/22/2022 Refill [facility] 230 [place], [place] [phone] Tamela Drake MD [address] [place], [place] [phone] Dyslipidemia (Primary Dx) Social History Tobacco Use [...] Office Visit [facility] 230 [place] [address] Bridgette Gandhi MD [address] [place] [address] documented as of this encounter Visit Diagnoses Diagnosis Dyslipidemia- Primary Other and unspecified hyperlipidemia documented in this encounter Additional Health Concerns Assessment Noted Time PHQ-9 Depression Total Score: 5 09/11/19 23 10:25 AM EST documented as of this encounter Care Teams Drug Coordinator Relationship Specialty Start Date End Date Bridgette Gandhi MD [address] [place] [address] PCP - General Family Medicine 07/01/12 Ramón Bolaños, MollyD [address] [place] [address] Pharmacist Internal Medicine 11/18/23 documented as of this encounter
--- OUTSIDE RECORDS SUMMARY | 2025-08-16 09:00 | XMS_ITS | Encounter Summary ---
Author Organization [employer] Address [address] [place] [address] 7t [place] [address] Care Team Providers Care Corporate Associate Attorney Name Role Phone Bridgette Gandhi MD Primary Care Provider Ramón Bolaños PharmD Unavailable [phone] Encounter Details Date Type Department Care Team (Latest Contact Info) Description 06/20/2022 Abstract [facility] Dental, Provider, DDS Social History Tobacco [...] Description 08/21/2025 11:00 AM EST Office Visit [facility] 230 [place], [place] [phone] Bridgette Gandhi MD [address] [place], [place] [phone] documented as of this encounter Visit Diagnoses Not on filedocumented in this encounter Care Teams Corporate Associate Attorney Relationship Specialty Start Date End Date Bridgette Gandhi MD [address] [place], [place] [phone] PCP - General Family Medicine 07/01/12 Ramón Bolaños, PharmD [address] [place] [address] Pharmacist Internal Medicine 11/18/23 documented as of this encounter
--- OUTSIDE RECORDS SUMMARY | 2025-08-16 09:00 | XMS_ITS | Clinical Summary ---
Author Organization [facility] Address [address] [place], [place] [phone] Phone Care Team Providers Care Indirect Fire Infantryman Name Role Phone Unknown, Unknown Primary Care [...] file Medical Devices Not on file Insurance [facility] MEDICARE REPLACEMENT [address] [address] MEDICARE REPLACEMENT MEDICARE REPLACEMENT [place] [id number] [place] [address] [address] MEDICARE REPLACEMENT MEDICARE REPLACEMENT [facility] MEDICARE REPLACEMENT [facility] MEDICARE REPLACEMENT [facility] MEDICARE REPLACEMENT Care Teams Indirect Fire Infantryman Relationship Specialty Start Date End Date Unknown, Unknown, PCP - General 05/23/19 Additional Source Comments The information contained in this document represents components of the legal health record. It is not the complete legal health record.[facility]
--- OUTSIDE RECORDS SUMMARY | 2025-08-16 09:01 | XMS_ITS | Encounter Summary ---
Author Organization [facility] Address [address] [facility] [address] [place] [phone] Phone Care Team Providers Care Screw Remover Name Role Phone Unknown, Unknown Primary Care Provider Terrence montano Encounter Details Date Type Department Care Team (Late st Contact Info) Description 05/30/2019 Ancillary Orders [facility] [address] [place] [address] [place] [address] Sylvester Hdez, DO [address] [place] [address] Bradycardia Social History Tobacco Use Types Packs/Day [...] dysrhythmias documented in this encounter Care Teams Screw Remover Relationship Specialty Start Date End Date Unknown, Unknown, PCP - General 05/23/19 documented as of this encounter Additional Source Comments The information contained in this document represents components of the legal health record. It is not the complete legal health record.[facility]
--- OUTSIDE RECORDS SUMMARY | 2025-08-16 09:01 | XMS_ITS | Encounter Summary ---
Author Organization [employer] Address [address] [place] [address] 7t [place] [address] Care Team Providers Care Retail Department Reset Name Role Phone Bridgette Gandhi MD Primary Care Provider [phone] Ramón Bolaños PharmD Unavailable [phone] Reason for Referral * Consultation (Routine) - Authorized Specialty Diagnoses / Procedures Referred By Contac t Referred To Contact Cardiology Diagnoses Hypertension, unspecified type Venous insufficiency Ascending aorta dilation (CMS/HCC) Bridgette Gandhi MD [address] [place] [address] Phone: tel: fax: [facility] Referral ID Status Reason Start Date Expiration Date Visits Requested Visits Authorized [id number] Authorized Specialty Services Required 04/06/2025 04/06/2026 1 1 Encounter Details Date Type Department Care Team (Late st Contact Info) Description 04/06/2025 Orders Only [facility] [address] [place], [place] [phone] Bridgette Gandhi MD [address] [place], [place] [phone] Hypertension, unspecified type (Primary Dx); Venous insufficiency; [...] Description 08/21/2025 11:00 AM EST Office Visit [facility] [address] [place] [address] Bridgette Gandhi MD [address] [place] [address] Scheduled Referrals Name Type Priority Associated Diagnoses [...] as of this encounter Care Teams Retail Department Reset Relationship Specialty Start Date End Date Bridgette Gandhi MD [address] [place] [address] PCP - General Family Medicine 07/01/12 Ramón Bolaños PharmD [address] [place] [address] Pharmacist Internal Medicine 11/18/23 documented as of this encounter
--- OUTSIDE RECORDS SUMMARY | 2025-08-16 09:01 | XMS_ITS | Encounter Summary ---
Author Organization [employer] Address [address] 7t [place] [address] Care Team Providers Care Sugar Sampler Name Role Phone Bridgette Gandhi MD Primary Care Provider [phone] Ramón Bolaños PharmD Unavailable [phone] Encounter Details Date Type Department Care Team (Late st Contact Info) Description 09/04/[address] [facility] [address] [place], [place] [phone] Bridgette Gandhi MD [address] [place], [place] [phone] Chronic pain of both knees (Primary Dx) [...] 08/21/2025 11:00 AM EST Office [address] [facility] [address] [place] [address] Bridgette Gandhi MD [address] [place] [address] documented as of this encounter Visit Diagnoses Diagnosis Chronic pain of both knees- Primary documented in this encounter Additional Health Concerns Assessment Noted Time PHQ-9 Depression Total Score: 5 09/11/19 23 10:25 AM EST documented as of this encounter Care Teams Sugar Sampler Relationship Specialty Start Date End Date Bridgette Gandhi MD [address] [place] [address] PCP - General Family Medicine 07/01/12 Ramón Bolaños, MollyD [address] [place] [address] Pharmacist Internal Medicine 11/18/23 documented as of this encounter
--- OUTSIDE RECORDS SUMMARY | 2025-08-16 09:01 | XMS_ITS | Encounter Summary ---
Author Organization [employer] Address [address] [facility] 7t [place] [address] Care Team Providers Care Dimension Warehouse Supervisor Name Role Phone Bridgette Gandhi MD Primary Care Provider [phone] Ramón Bolaños PharmD Unavailable [phone] Reason for Visit * Reason Onset Date Comments Lab Orders 08/03/2025 Encounter Details Date Type Department Care Team (Late st Contact Info) Description 08/03/2025 Telephone [facility] [address] [place], [place] [phone] Bridgette Gandhi MD [address] [place], [place] [phone] Lab Orders Social History Tobacco Use Types [...] the past 12 months, has t he [employer], gas, oil or water [employer] threatened to shut off services in your [...] at the moment. Please contact pt at [phone]. (Guatemalan Speaker) documented in this encounter Plan of Treatment Upcoming Encounters Date Type Department Care Team (Late st Contact Info) Description 08/21/2025 11:00 AM EST Office Visit [facility] [address] [place], [place] [phone] Bridgette Gandhi MD [address] [place] [address] documented as of this encounter Goals Goal [...] documented as of this encounter Care Teams Dimension Warehouse Supervisor Relationship Specialty Start Date End Date Bridgette Gandhi MD [address] [place] [address] PCP - General Family Medicine 07/01/12 Ramón Bolaños PharmD [address] [place] [address] Pharmacist Internal Medicine 11/18/23 documented as of this encounter
--- OUTSIDE RECORDS SUMMARY | 2025-08-16 09:01 | XMS_ITS ---
Author Name [employer] Address [address] [place] [address] Phone [phone] Care Team Providers Care Assistive Technology Trainer Name Role Phone Qi Waddell Unavailable [phone] ROSENEENA VELEZO Unavailable [phone] Concepción Mcrae Unavailable [phone] Unavailable Unavailable Unavailable Reason for Referral Not [...] 2022-03-10 No Data Available Deep Sea Nasal [place] 0.65 % Solution USE 1-2 SPRAYS IN [...] persistent NOLEN< blurry vision)07/25/2024:Follows up with PCP, Injection Operator, last visit 2 weeks ago.Taking: amLODIPine [...] ophthalmology every 3-6 months 07/25/2024:Follows up with Duct Layer Helper.Continues using: Latanoprost drops.Denies any acute complaint. Chronic [...] CANTON cc info sent to member and CONTROL BOARD OPERATOR. Advised to f/u with recliner request during 07/27/24 f/u visit with PCP, as may need PT/OT eval. Loose stools Active 2025-05-18 N/A StableReport s intermittent loose stoolDietary and lifestyle interventions [facility]OW[facility] medications - Imodium if diarrhea developsContact CB if having change in BM and continue with PCP. Encounters Encounters Type Facility Date of Service Diagnosis/Co mplaint New patient,40-59min; chronic exacerbation, 2 stable chronic or 1 acute illness add add modifier 95 for video (do not use for phone, instead use 27860-13) [facility] Type 2 diabetes mellitus [...] (do not use for phone, instead use 58239-47) [facility] [place] New patient,40-59min; chronic exacerbation, 2 stable chronic or 1 acute illness add add modifier 95 for video (do not use for phone, instead use 56624-67) [facility] [place] New patient,40-59min; chronic exacerbation, 2 stable chronic or 1 acute illness add add modifier 95 for video (do not use for phone, instead use 73365-82) [facility] [place] New patient,40-59min; chronic exacerbation, 2 stable chronic or 1 acute illness add add modifier 95 for video (do not use for phone, instead use 79650-99) [facility] [place] New patient,40-59min; chronic exacerbation, 2 stable chronic or 1 acute illness add add modifier 95 for video (do not use for phone, instead use 13191-58) [facility] [place] New patient,40-59min; chronic exacerbation, 2 stable chronic or 1 acute illness add add modifier 95 for video (do not use for phone, instead use 36570-01) [facility] [place] New patient,40-59min; chronic exacerbation, 2 stable chronic or 1 acute illness add add modifier 95 for video (do not use for phone, instead use 97434-56) [facility] [place]20[place] New patient,40-59min; chronic exacerbation, 2 stable chronic or 1 acute illness add add modifier 95 for video (do not use for phone, instead use 95803-10) [facility] [place]2022 No Data Available [facility] [place]2022 Type 2 diabetes mellitus wit h diabetic neuropathy, unspecifiedMorbid (severe) obesity due to excess caloriesMajor depressive disorder, recurrent, mildHeart failure, unspecifiedHypertensive heart disease with heart failureChronic obstructive pulmonary disease, unspecifiedOther amnesiaUnspecified glaucoma No Data Available [facility] [place]2022 No Data Available [facility] [place]/2022 Estab. patient 30-39min; chronic exacerbation, 2 stable chronic or 1 acute illness add add modifier 95 for video, (do not use for phone, instead use 37082-22) [facility] [place]2023 Type 2 diabetes mellitus [...] (do not use for phone, instead use 97024-36) [facility] [place]2023 Estab. patient 30-39min; chronic exacerbation, 2 stable chronic or 1 acute illness add add modifier 95 for video, (do not use for phone, instead use 55563-89) [facility] [place]2023 Estab. patient 30-39min; chronic exacerbation, 2 stable chronic or 1 acute illness add add modifier 95 for video, (do not use for phone, instead use 53483-57) [facility] [place]23 Estab. patient 30-39min; chronic exacerbation, 2 stable chronic or 1 acute illness add add modifier 95 for video, (do not use for phone, instead use 80907-82) [facility] Estab. patient 30-39min; chronic exacerbation, 2 stable chronic or 1 acute illness add add modifier 95 for video, (do not use for phone, instead use 51765-42) [facility] [place] Estab. patient 30-39min; chronic exacerbation, 2 stable chronic or 1 acute illness add add modifier 95 for video, (do not use for phone, instead use 53492-84) [facility] [place]2023 Estab. patient 30-39min; chronic exacerbation, 2 stable chronic or 1 acute illness add add modifier 95 for video, (do not use for phone, instead use 81015-10) [facility] [place]2023 Estab. patient 30-39min; chronic exacerbation, 2 stable chronic or 1 acute illness add add modifier 95 for video, (do not use for phone, instead use 51288-64) [facility] [place] Estab. patient 30-39min; chronic exacerbation, 2 stable chronic or 1 acute illness add add modifier 95 for video, (do not use for phone, instead use 87989-66) [facility] [place]23 Estab. patient 20-29min; 1 stable chronic or 2 minor; add add modifier 95 for video, modifier 93 for phone [facility] [place]2024 Other chronic painOther prob lems related to medical facilities and other health care Estab. patient 20-29min; 1 stable chronic or 2 minor; add add modifier 95 for video, modifier 93 for phone [facility] [place] Estab. patient 20-29min; 1 stable chronic or 2 minor; add add modifier 95 for video, modifier 93 for phone [facility] [place] Estab. patient 20-29min; 1 stable chronic or 2 minor; add add modifier 95 for video, modifier 93 for phone [facility] [place]/20[place] Estab. patient 20-29min; 1 stable chronic or 2 minor; add add modifier 95 for video, modifier 93 for phone [facility] [place] 05/[place]/2024 Estab. patient 20-29min; 1 stable chronic or 2 minor; add add modifier 95 for video, modifier 93 for phone [facility] [place] 05/[place]/2024 Estab. patient 20-29min; 1 stable chronic or 2 minor; add add modifier 95 for video, modifier 93 for phone [facility] [place] 05/[place]/2024 No Data Available [facility] [place] 07/25/2024 Hypertensive heart disease w ith heart failureHeart failure, unspecifiedSecondary hyperaldosteronismChronic obstructive pulmonary disease, unspecifiedUnspecified glaucomaOther problems related to medical facilities and other health careOther chronic pain No Data Available [facility] [place] 07/25/2024 No Data Available [facility] [place] 07/25/2024 Estab. patient 10-29min; 1 minor problem; add add modifier 95 for video, modifier 93 for phone [facility] [place] 05/18/2025 Type 2 diabetes mellitus wit h [...] 95 for video, modifier 93 for phone [facility] [place] Estab. patient 10-29min; 1 [...] Current Smoking Status Current every day smoker 2025-08-16 Sex Male History of Procedures Procedures Service Procedure code Service date Servicing provider Phone# New patient,40-59min; chronic exacerbation, 2 stable chronic or 1 acute illness add add modifier 95 for video (do not use for phone, instead use 17279-83) 16175 2022-10-28 No Data Available No Data Availa [...] No Data Nancy ilable No Data Available [id number] 2022-10-29 No Data Available No Data Available [...] (do not use for phone, instead use 23426-83) [id number] 2023-10-27 No Data Available No Data Availa [...] 95 for video, modifier 93 for phone 87842 2024-05-30 No Data Available No Data Availa [...] le No Data Available No Data Available [id number] 2024-07-25 No Data Available No Data Available Medication List Documented (1159F) 1159F 2024-07-25 No Data Available No Data Nancy ilable Pain Assessment - Pain Documented on a Pain Scale (1125F) 1125F 2024-07-25 No Data Available No Data Nancy ilable Estab. patient 10-29min; 1 minor problem; add add modifier 95 for video, modifier 93 for phone 08450 2025-05-18 No Data Available No Data Availa [...] persistent NOLEN< blurry vision)10/27/2023:Follows up with PCP, Injection Operator, last visit 2 weeks ago.BP: 119/68. [...] ophthalmology every 3-6 months 10/27/2023:Follows up with Duct Layer Helper.Continues using: Latanoprost drops.Denies any acute complaint.Reports chronic [...] (no modifier 95)Pain Assessment - Pain Documented (4963F)Continue to see PCP. Follow-up with [facility] as needed for any acute or disease education needs that may arise 09/03.StableLisinopril, Furosemide Avg BP: 120s/60sContinue taking medications as prescribed, continue monitoring BP, discussed low salt diet, exercise as tolerable, and lifestyle interventions. Contact us if developing emergent HTN s/sx (eg. palpitations, persistent NOLEN< blurry vision)07/25/2024:Follows up with PCP, Injection Operator, last visit 2 weeks ago.Taking: amLODIPine [...] ophthalmology every 3-6 months 07/25/2024:Follows up with Duct Layer Helper.Continues using: Latanoprost drops.Denies any acute complaint.PAIN CONTINGENCY [...] CANTON cc info sent to member and CONTROL BOARD OPERATOR. Advised to f/u with recliner request [...] persistent NOLEN< blurry vision)07/25/2024:Follows up with PCP, Injection Operator, last visit 2 weeks ago.Taking: amLODIPine [...] ophthalmology every 3-6 months 07/25/2024:Follows up with Duct Layer Helper.Continues using: Latanoprost drops.Denies any acute complaint.StableReports chronic [...] CANTON cc info sent to member and CONTROL BOARD OPERATOR. Advised to f/u with recliner request [...] questions or concerns. [facility]. CB [...] okDo you have a Durable Power of Show Jumping Instructor for Healthcare, or Healthcare Proxy Or Guardianship? Yes, preferred proxy but not named POAIf so, Who? daughter, Senait Hernandez you have a written Advance Directive? Has no formal [id number] : AD or surrogate was documented in [...]
--- OUTSIDE RECORDS SUMMARY | 2025-08-16 09:01 | XMS_ITS | Encounter Summary ---
Author Organization [employer] Address [address] [facility] [address]t [place] [address] Care Team Providers Care Wire Stripping Machine Operator Name Role Phone Bridgette Gandhi MD Primary Care Provider [phone] Ramón Bolaños PharmD Unavailable [phone] Reason for Visit * Reason Onset Date Comments ER Follow-up 05/26/2024 Nurse Triage 05/26/2024 Encounter Details Date Type Department Care Team (Late st Contact Info) Description 05/26/2024 Telephone [facility] [address] [place], [place] [phone] Bridgette Gandhi MD [address] [place], [place] [phone] ER Follow-up; Nurse Triage Social History Tobacco [...] Please assist with obtaining discharge summary for [facility] visit on 05/25/24 for provider review prior to upcoming appointment. Future Appointments Date Time Provider Department Center 05/27/2024 8:45 AM Jeremias Gong MD [facility] 01/11/2025 10:00 AM Susy Dixon PharmD [facility] * Telephone Encounter - Danii Hope RN [...] Center 05/27/2024 8:45 AM Jeremias Gong MD [facility] 01/11/2025 10:00 AM Susy Dixon PharmD MEDICINE [facility] Insurance verified as active per Real Time [...] ED visit on : Date: 05/25/24 Hospital: [facility] Seen for: Severe hip and thigh [...] Description 08/21/2025 11:00 AM EST Office Visit [facility] [address] [place] [address] Bridgette Gandhi MD [address] [place] [address] documented as of this encounter Goals Goal [...] documented as of this encounter Care Teams Wire Stripping Machine Operator Relationship Specialty Start Date End Date Bridgette Gandhi MD [address] [place] [address] PCP - General Family Medicine 07/01/12 Ramón Bolaños, MollyD [address] [place] [address] Pharmacist Internal Medicine 11/18/23 documented as of this encounter
--- OUTSIDE RECORDS SUMMARY | 2025-08-16 09:01 | XMS_ITS | Encounter Summary ---
Author Organization [employer] Address [address] [facility] [place] [address] Care Team Providers Care Pellet Press Operator Name Role Phone Bridgette Gandhi MD Primary Care Provider [phone] Ramón Bolaños PharmD Unavailable [phone] Encounter Details Date Type Department Care Team (Late st Contact Info) Description 08/28/[address] [facility]INE [address] [place], [place] [phone] Bridgette Gandhi MD [address] [place], [place] [phone] Social History Tobacco Use Types Packs/Day Years [...] 08/21/2025 11:00 AM EST Office Visit [facility] [address] [place] [address] Bridgette Gandhi MD [address] [place] [address] documented as of this encounter Visit Diagnoses Not on filedocumented in this encounter Additional Health Concerns Assessment Noted Time PHQ-9 Depression Total Score: 5 09/11/19 23 10:25 AM EST documented as of this encounter Care Teams Pellet Press Operator Relationship Specialty Start Date End Date Bridgette Gandhi MD [address] [place] [address] PCP - General Family Medicine 07/01/12 Ramón Bolaños, Bradley [address] [place] [address] Pharmacist Internal Medicine 11/18/23 documented as of this encounter
--- OUTSIDE RECORDS SUMMARY | 2025-08-16 09:01 | XMS_ITS | Encounter Summary ---
Author Organization [employer] Address [address] [place] [address] Care Team Providers Care Kieselguhr Regenerator Operator Name Role Phone Bridgette Gandhi MD Primary Care Provider [phone] Ramón Bolaños PharmD Unavailable [phone] Encounter Details Date Type Department Care Team (Late st Contact Info) Description 08/22/2024 Abstract [facility] MEDICINE [address] [place] [address] [place] Social History Tobacco Use [...] AM EST Office Visit [facility] [address] [place] [address] Bridgette Gandhi MD [address] [place] [address] documented as of this encounter Goals Goal [...] documented as of this encounter Care Teams Kieselguhr Regenerator Operator Relationship Specialty Start Date End Date Bridgette Gandhi MD [address] [place] [address] PCP - General Family Medicine 07/01/12 Ramón Bolaños PharmD [address] [place] [address] Pharmacist Internal Medicine 11/18/23 documented as of this encounter
--- OUTSIDE RECORDS SUMMARY | 2025-08-16 09:01 | XMS_ITS | Encounter Summary ---
Author Organization [employer] Address [address] [place] [address] Care Team Providers Care Linderman Machine Operator Name Role Phone Bridgette Gandhi MD Primary Care Provider [phone] Ramón Bolaños PharmD Unavailable [phone] Encounter Details Date Type Department Care Team (Late st Contact Info) Description 06/26/2023 Abstract [facility] [address] [place], [place] [phone] Amarjit Foster DDS [address] [place], [place] [phone] Social History Tobacco Use Types Packs/Day Years [...] 11:00 AM EST Office Visit [facility] MED[facility]INE [address] [place] [address] Bridgette Gandhi MD [address] [place] [address] documented as of this encounter Visit Diagnoses Not on filedocumented in this encounter Additional Health Concerns Assessment Noted Time PHQ-9 Depression Total Score: 5 09/11/19 23 10:25 AM EST documented as of this encounter Care Teams Linderman Machine Operator Relationship Specialty Start Date End Date Bridgette Gandhi MD [address] [place] [address] PCP - General Family Medicine 07/01/12 Ramón Bolaños, MollyD [address] [place] [address] Pharmacist Internal Medicine 11/18/23 documented as of this encounter
--- OUTSIDE RECORDS SUMMARY | 2025-08-16 09:01 | XMS_ITS | Encounter Summary ---
Author Organization [employer] Address [address] [place] [address] Care Team Providers Care Valve Repairer Name Role Phone Bridgette Gandhi MD Primary Care Provider [phone] Ramón Bolaños PharmD Unavailable [phone] Encounter Details Date Type Department Care Team (Late st Contact Info) Description 09/22/2023 Orders Only [facility] MED[facility]INE [address] [place], [place] [phone] Bridgette Gandhi MD [address] [place], [place] [phone] Chronic obstructive pulmonary disease, unspecified COPD type [...] Description 08/21/2025 11:00 AM EST Office Visit [facility] [address] [place] [address] Bridgette Gandhi MD [address] [place] [address] documented as of this encounter Visit Diagnoses Diagnosis Chronic obstructive pulmonary disease, unspecified COPD type (CMS/HCC) (HCC)- Primary Obstructive sleep apnea syndrome Obstructive sleep apnea (adult) (pediatric) documented in this encounter Additional Health Concerns Assessment Noted Time PHQ-9 Depression Total Score: 5 09/11/19 23 10:25 AM EST documented as of this encounter Care Teams Valve Repairer Relationship Specialty Start Date End Date Bridgette Gandhi MD [address] [place] [address] PCP - General Family Medicine 07/01/12 Ramón Bolaños, PharmD [address] [place] [address] Pharmacist Internal Medicine 11/18/23 documented as of this encounter
--- OUTSIDE RECORDS SUMMARY | 2025-08-16 09:01 | XMS_ITS | Clinical Summary ---
Author Organization [employer] Address [address] [facility] [address] [place] [address] Care Team Providers Care School Cook Name Role Phone Bridgette Fagan MD Primary Care Provider [phone] Ramón Bolaños PharmD Unavailable [phone] Allergies Active Allergy Reactions Criticality Noted Date [...] 12 04/27/20 23 Active Deep Sea Nasal [place] 0.65 % nasal spray USE 1-2 SPRAYS [...] 12/02/19 24 Active Lancets (OneTouch Delica Plus [id number]) miscIndications: Type 2 diabetes mellitus without complications [...] AND IN THE EVENING 06/30/20 24 Active lisinopril 40 MG tablet TAKE [...] MORNING 16 g 2 08/04/20 25 Active atorvastatin (Lipitor) 40 MG tabletIndication s:Dyslipidemia TAKE 1 TABLET BY MOUTH AT BEDTIME 90 tablet 3 08/15/20 25 Active atorvastatin (Lipitor) 40 MG tabletIndication s:Dyslipidemia TAKE 1 TABLET BY MOUTH AT BEDTIME 30 tablet 11 09/16/19 25 025 Discontinued fluticasone (Flonase) 50 MCG/ACT nasal spray INSTILL 1-2 SPRAYS IN EACH NOSTRIL ONCE DAILY IN THE MORNING 16 g 2 5 1:17 PM EST 01/11/20 25 025 Discontinued Active Problems Problem Noted Date Diagnosed Date Odontalgia 08/24/2024 Lower urinary tract symptoms (LUTS) 08/04/2024 Bladder stones 08/04/2024 Assessment & Plan (11/04/2024 6:10 AM EDT): - following with [facility] urology, last seen on 09/26/24 - continue adequate hydration - s/p bladder stone removal on 09/13/24 Assessment & Plan (08/25/2024 2:37 PM EST): - following with [facility] urology, last seen on 07/03/24 for cystoscopy - continue adequate hydration - scheduled for bladder stone removal with Dr. Ayala Assessment & Plan (08/11/2024 6:19 AM EST): - following with [facility] urology, last seen on 07/03/24 for cystoscopy -recommended adequate hydration and following plan per urologist Fractured dental bahai with loss of materi al 08/01/2024 Caries [...] aorta measuring 4.00 cm - Followed by Office Machine Mechanic, monitor with echo every 6-12 months - Continue BP management - Referred to [facility] cardiology per patient's family's request since [facility] moved to [place] Assessment & Plan (11/04/2024 6:07 AM EDT): - 11/26/23 Echo showed mild dilatation of the ascending aorta measuring 4.00 cm - Followed by Office Machine Mechanic, monitor with echo every 6-12 months - Continue BP management Assessment & Plan (04/07/2024 11:49 AM EDT): - 11/26/23 Echo showed mild dilatation of the ascending aorta measuring 4.00 cm - Followed by Office Machine Mechanic, monitor with echo every 6-12 months - Continue BP management Assessment & Plan (01/04/2024 11:35 AM EDT): - 11/26/23 Echo showed mild dilatation of the ascending aorta measuring 4.00 cm - Followed by Office Machine Mechanic, monitor with echo every 6-12 months - Continue BP management Periodic limb movement disorder (PLMD) Assessment & Plan (05/15/2025 7:03 AM EDT): - Noted on his last sleep study - Previously seeing [facility] neurology / sleep medicine [...] MRI on 04/14/23: mild chronic ischemic microangiopathy; [id number] generalized diffuse supratentorial and cerebellar vermian parenchymal [...] MRI on 04/14/23: mild chronic ischemic microangiopathy; [id number] generalized diffuse supratentorial and cerebellar vermian parenchymal [...] Plan (11/04/2023 12:40 PM EDT): -Seen by [facility] provider in Apr 2021. Recommended to continue conservative management of compression stocking, DASH diet, and leg elevation. Discontinued Diltiazem due to possible side effects. -possible venous ablation -06/02/23 venous study showed b/l venous insufficiency. -recommended to discuss with his boat painter and vascular specialist at [facility] for other treatment options, if appropriate -discontinued amlodipine and hydralazine recently - continue torsemide Assessment & Plan (08/14/2023 11:15 AM EST): -Seen by [facility] provider in Apr 2021. Recommended to continue conservative management of compression stocking, DASH diet, and leg elevation. Discontinued Diltiazem due to possible side effects. -possible venous ablation -06/02/23 venous study showed b/l venous insufficiency. -recommended to discuss with his boat painter and vascular specialist at [facility] for other treatment options, if appropriate Assessment & Plan (05/11/2023 8:29 AM EDT): -Seen by [facility] provider in Apr 2021. Recommended to continue conservative management of compression stocking, DASH diet, and leg elevation. Discontinued Diltiazem due to possible side effects. -possible venous ablation -schedule venous study Assessment & Plan (2022 9:36 AM EST): -Seen by [facility] provider in Apr 2021. Recommended to continue conservative management of compression stocking, DASH diet, and leg elevation. Discontinued Diltiazem due to possible side effects. -possible venous ablation Lumbar radiculopathy 2022 Assessment & Plan (05/15/2025 7:07 AM EDT): - last evaluated by apprentice painter neckties in March 2025 - last injection treatment [...] APAP and diclofenac topical Referred back to [facility] Pain management Discussed with [...] Tylenol prn - Following with Pain management, [facility] - last injection treatment left L3-L4 transforaminal epidural steroid injection for lumbar radiculopathy and lumbar degenerative disc disease in February 2025 - Previously tried PT; declined further PT, but agreed to see Dr. Hoang - MRI on 09/29/22 showing spinal stenosis with compression of the Exiting right L5 nerve root. - MRI 11/07 showed similar results - Refer to uppers edge burnisher Assessment & Plan (01/04/2024 11:26 AM EDT): [...] to pt's questionable adherence - comanaged with boat painter, router setter, warping mill operator, and pharmacist - evaluated for primary [...] to pt's questionable adherence - comanaged with boat painter, router setter, warping mill operator, and pharmacist - evaluated for primary [...] to pt's questionable adherence - co-managed with boat painter, router setter, warping mill operator, and pharmacist - evaluated for primary [...] to pt's questionable adherence - comanaged with boat painter, router setter, warping mill operator, and pharmacist - evaluated for primary [...] to pt's questionable adherence - comanaged with boat painter, router setter, warping mill operator, and pharmacist - evaluated for primary [...] to pt's questionable adherence - comanaged with boat painter, router setter, and pharmacist - check primary aldosteronism; may [...] to pt's questionable adherence - comanaged with boat painter, router setter, and pharmacist - check primary aldosteronism; may [...] to pt's questionable adherence - comanaged with boat painter, router setter, and pharmacist - check primary aldosteronism; may [...] to pt's questionable adherence - comanaged with boat painter, warping mill operator, and pharmacist -?24-hr ambulatory BP monitor [...] 2024, treated with azithromycin. - Restarted seeing [facility] Pulmonology providers. Seen by [...] the ascending aorta measuring 4.00 cm. Seeing [facility] Pulmonology Dr. Castillo last [...] 2024, treated with azithromycin. - Restarted seeing [facility] Pulmonology providers. Seen by [...] 2024, treated with azithromycin. - Restarted seeing [facility] Pulmonology providers. Seen by [...] 2024, treated with azithromycin. - Restarted seeing [facility] Pulmonology providers. Seen by [...] received prednisone and azithromycin. - Restarted seeing [facility] Pulmonology providers. Seen by [...] received prednisone and azithromycin. - Restarted seeing [facility] Pulmonology providers. Seen by [...] received prednisone and azithromycin. - Restarted seeing [facility] Pulmonology providers. Last seen [...] PLAN FOR COPD (CHRONIC OBSTRUCTIVE PULMONARY DISEASE) ([facility]) WRITTEN ON 08/13/2023 4:56 AM BY BRIDGETTE FAGAN MD Last exacerbation due to CAP in Aug 2017 Following with [facility] pulmonology, Dr. Cruz Continue [...] PLAN FOR COPD (CHRONIC OBSTRUCTIVE PULMONARY DISEASE) ([facility]) WRITTEN ON 05/11/2023 8:27 AM BY BRIDGETTE FAGAN MD Last exacerbation due to CAP in Aug 2017 Following with [facility] pulmonology, Dr. Cruz Continue [...] to CAP in Aug 2017 Following with [facility] pulmonologyDr. Cruz Continue Advair [...] -Restarted auto-PAP in 2019 -Currently followed by [facility] sleep clinic, last appointment in May 2024, auto-PAP 8-20 cm H2O -Continue current setting -Work on lifestyle modifications Assessment & Plan (02/17/2025 9:17 AM EDT): -Last sleep study on 07/22/2018. Dx SHANON -Restarted auto-PAP in 2019 -Currently followed by [facility] sleep clinic, last appointment in May 2023, auto-PAP 8-20 cm H2O -Continue current setting -Work on lifestyle modifications Assessment & Plan (11/01/2024 8:37 AM EDT): -Last sleep study on 07/22/2018. Dx SHANON -Restarted auto-PAP in 2019 -Currently followed by [facility] sleep clinic, last appointment in May 2023, auto-PAP 8-20 cm H2O -Continue current setting -Work on lifestyle modifications Assessment & Plan (08/25/2024 2:39 PM EST): -Last sleep study on 07/22/2018. Dx SHANON -Restarted auto-PAP in 2019 -Currently followed by [facility] sleep clinic, last appointment in May 2023, auto-PAP 8-20 cm H2O -Continue current setting -Work on lifestyle modifications Assessment & Plan (08/04/2024 10:59 PM EST): -Last sleep study on 07/22/2018. Dx SHANON -Restarted auto-PAP in 2019 -Currently followed by [facility] sleep clinic, last appointment in May 2023, auto-PAP 8-20 cm H2O -Continue current setting -Work on lifestyle modifications Assessment & Plan (04/07/2024 11:48 AM EDT): -Last sleep study on 07/22/2018. Dx SHANON -Restarted auto-PAP in 2019 -Currently followed by [facility] sleep clinic, last appointment in May 2023, auto-PAP 8-20 cm H2O -Continue current setting -Work on lifestyle modifications Assessment & Plan (08/13/2023 4:54 AM EST): -Last sleep study on 07/22/2018. Dx SHANON -Restarted auto-PAP in 2019 -Currently followed by [facility] sleep clinic, last appointment in May 2023, auto-PAP 8-20 cm H2O -Continue current setting -Work on lifestyle modifications Assessment & Plan (05/11/2023 8:26 AM EDT): -Last sleep study on 07/22/2018. Dx SHANON -Restarted auto-PAP in 2020 -Currently followed by [facility] sleep clinic, last appt in 12/31/21, auto-PAP 8-20 cm H2O -Pt received new CPAP machine and now scheduled for Mask Fitting d/t pain on his head. -Continue current setting -Work on lifestyle modifications -Will request [facility] sleep medicine clinic to follow up and provide recommendation. Assessment & Plan (01/21/2023 10:57 AM EDT): -Last sleep study on 07/22/2018. Dx SHANON -Restarted auto-PAP in 2019 -Currently followed by [facility] sleep clinic, last appt in 11/13/22 , New CPAP was prescribed. APAP 8-20 cmH2O. -Continue current setting -Work on lifestyle modifications Assessment & Plan (2022 2:08 PM EST): -Last sleep study on 07/22/2018. Dx SHANON -Restarted auto-PAP in 2019 -Currently followed by [facility] sleep clinic, last appt in 12/31/21, auto-PAP 8-20 cm H2O -Pt received new CPAP machine and now scheduled for Mask Fitting d/t pain on his head. -Continue current setting -Work on lifestyle modifications -Will request [facility] sleep medicine clinic to follow up and provide recommendation. Assessment & Plan (09/24/2022 10:57 AM EST): -Last sleep study on 07/22/2018. Dx SHANON -Restarted auto-PAP in 2019 -Currently followed by [facility] sleep clinic, last appt [...] check with Lung Cancer screening program in [facility] for next CT scan [...] (11/04/2024 11:22 AM EDT): - following with [facility] Urology - s/p TURP and bladder stone removal on 09/13/24 - continue doxazosin and finasteride Assessment & Plan (08/25/2024 2:37 PM EST): - following with [facility] Urology - continue doxazosin and finasteride Assessment & Plan (08/11/2024 6:20 AM EST): - following with [facility] Urology - continue doxazosin [...] Encounters Date Type Department Care Team Description 08/15/[address] [facility] [address] [place] [address] Bridgette Fagan MD chartprep 08/14/[address] [facility] [address] [place] [address] Bridgette Fagan MD Dyslipidemia 08/04/2025 Orders Only [facility] [address] [place] [address] Bridgette Fagan MD Hypertension, unspecified type (Primary Dx); Dyslipidemia; Controlled type 2 diabetes mellitus without complication, without long-term current use of insulin (HCC); Memory difficulties; Anemia, unspecified type 08/04/[address] [facility] [address] [place] [address] Bridgette Fagan MD 08/03/[address] [facility] [address] [place] [address] Bridgette Fagan MD Lab Orders 05/23/[address] [facility] [address] [place] [address] Bridgette Fagan MD from Last 3 Months Immunizations Immunization [...] AM EST Office Visit [facility] [address] [place] [address] Bridgette Fagan MD [address] [place] [address] Health Maintenance Due Date Last Done Comments [...] Plan Weekly blood pressure task No Bridgette Fagan MD Weekly blood pressure task Care Plan Weekly blood pressure task No Bridgette Fagan MD Patient has chronic kidney disease Care Plan Patient has chronic kidney disease No Bridgette Fagan MD Patient has chronic kidney disease Care Plan Patient has chronic kidney disease No Bridgette Fagan MD Weekly blood pressure task Care Plan [...] chronic kidney disease No Tanesha Vidal MA Procedures Procedure Name Priority Date/Time Associated Diagnosis Comments XR CHEST 2 VIEWS Routine 08/11/2025 11:4 4 AM EST POCT GLYCOSYLATED HEMOGLOBIN (HGB A1C) Routine 01/31/2025 11:15 AM EDT Controlled type 2 diabetes mellitus without complication, without long-term current use of insulin ([facility]) PROPHYLAXIS - ADULT Routine 01/06/2025 1 0:00 AM EDT Dental plaque ALBUMIN, RANDOM URINE W/CREATININE Routine 10/28/2024 9:15 AM EDT Controlled type 2 diabetes mellitus without complication, without long-term current use of insulin ([facility]) LIPID PANEL WITH REFLEX TO DIRECT LDL Routine 10/28/2024 9:15 AM EDT Controlled type 2 diabetes mellitus without complication, without long-term current use of insulin ([facility]) BITEWING - SINGLE RADIOGRAPHIC IMAGE Routine 09/12/2024 10:15 AM EST PERIODIC ORAL EVALUATION - ESTABLISHED PATIENT Routine 07/08/2024 9:00 AM EST HM DIABETES EYE EXAM Routine 06/29/2024 LDCT LUNG SCREENING Routine 12/22/2023 9 :58 AM EDT from Last 3 Months or Most Recently Relevant to Health Maintenance Results * XR Chest 2 Views (08/11/2025 11:44 AM EST) Anatomical Region Laterality Modality Chest Radiographic Ines ging 08/11/2025 11:4 4 AM EST Narrative 08/11/2025 12:14 PM EST [facility] Primary Care [address] [place] [address] [place] [address] XRay Report Signed Patient: Bharathi Walsh R#: [id number] : 1945 Acct:[id number] Age/Sex: 79 / M ADM Date: 08/11/25 Loc: .HMGX Attending Dr: Sue Montero MD Ordering Physician: Sue Montero MD Date of Service: 08/11/25 Procedure(s): XR chest 2V Accession Number(s): [id number] cc: Sue Montero MD; Bridgette Fagan MD Reason for Exam: R05.9 - Cough, unspecified EXAMINATION: XR CHEST CLINICAL INFORMATION: R05.9 - Cough, unspecified COMPARISON: Chest x-ray 04/07/2024 TECHNIQUE: 2 views of the chest were obtained. FINDINGS: No significant abnormality is noted involving the heart, lungs, mediastinum, bony thorax or soft tissues. XR/XR chest 2V IMPRESSION: Unremarkable chest examination. Electronically signed by: Sunil Escalante MD 08/11/2025 12:11 PM EST Dictated By: Sunil Escalante MD Signed By: <Electronically signed by Sunil Escalante MD in OV> 08/11/25 1211 DD/ 1144 TD/TT: 08/11/25 1145 Daytime Caregiver: [facility] Procedure Note Donotuseinterpreter, Image - 08/11/2025 [facility] [address] [place] [address] [place] [address] XRay Report Signed Patient: Shalom Walsh R#: [id number] : 1945cct:[id number] Age/Sex: 79 / MADM Date: 08/11/25 Loc: HO.HMGCX Attending Dr: Sue Montero MD Ordering Physician: Sue Montero MD Date of Service: 08/11/25 Procedure(s): XR chest 2V Accession Number(s): [id number] cc: Sue Montero MD; Bridgette Fagan MD Reason for Exam: R05.9 - Cough, unspecified EXAMINATION: XR CHEST CLINICAL INFORMATION: R05.9 - Cough, unspecified COMPARISON: Chest x-ray 04/07/2024 TECHNIQUE: 2 views of the chest were obtained. FINDINGS: No significant abnormality is noted involving the heart, lungs, mediastinum, bony thorax or soft tissues. XR/XR chest 2V IMPRESSION: Unremarkable chest examination. Electronically signed by: Sunil Escalante MD 08/11/2025 12:11 PM [facility] Dictated By: Sunil Escalante MD Signed By: <Electronically signed by Sunil Escalante MD in OV> 08/11/25 1211 DD/ 1144 TD/TT: 08/11/25 1145 Daytime Caregiver: [facility] External Provider IMG XR PROCEDURES Edited Result - Final * (ABNORMAL) POCT glycosylated hemoglobin (Hgb A1c) [...] 9:15 AM EDT) Triglycerides 125 <150 mg/dL [facility] Comment:Desirable Triglyceri de: less than 150 mg/dLBorderline High Triglyceride 150-199 mg/dLHigh Triglyceride: 200-499 mg/dLVery High Triglyceride: greater than or equal to 5OO mg/dL Cholesterol 126 <200 mg/dL [facility] Comment:Desirable Cholestero l: less than 200 mg/dLBorderline High Cholesterol: 200-239 mg/dLHigh Cholesterol: greater than 239 mg/dL LDL Cholesterol Calculated 58 <100 mg/dL [facility] Comment:Desirable LDL: less than 100 mg/dLNear Optimal/Above Optimal LDL: 110- 129 mg/dLBorderline High LDL: 130-159 mg/dLHigh LDL: 160-189 mg/dLVery High LDL: greater than or equal to 190 mg/dL HDL Cholesterol 43 >40 mg/dL [facility] Comment:Desirable HDL: great er than 40 mg/dL Note: This HDL assay may give artificially low results in patients with liver disease. Blood 10/28/2024 9:15 AM EDT 10/28/2024 11:15 AM EDT us Bridgette Fagan MD LAB BLOOD ORDERABLES Final Resul t Performing Organization Address City/[facility] Co de Phone Number [facility] [address] [place] [address] [phone] * (ABNORMAL) Albumin, Random Urine W/Creatinine (10/28/2024 9:15 AM EDT) Creatinine, Urine 247.97 mg/dL [facility] Microalbumin Urine 145.0 mg/L [facility] Microalbum Creatinine Ratio Ur 58.4(H) <30 ug/mg cr [facility] Comment:Albumin/Creatinine R atio Reference Ranges: Normal: < 30 ug/mg creatinine Microalbuminuria: 30 - 300 ug/mg creatinineClinical Albuminuria: > 300 ug/mg creatinine Urine 10/28/2024 9:15 AM EDT 10/28/2024 11:14 AM EDT us Bridgette Fagan MD LAB URINE ORDERABLES Final Resul t Performing Organization Address City/State/[facility] Co de Phone Number [facility] [address] [place] [phone] * Hm Diabetes Eye Exam (06/29/2024) Eye Exam Normal Normal 06/29/2024 us Historical Provider MD HEALTH MAINTENANCE Final Result * CT Lung Screening Low dose (12/22/2023 9:58 AM EDT) Anatomical Region Laterality Modality Lung Computed Tomogra phy 12/22/2023 9:58 AM EDT Narrative 12/27/2023 11:40 PM EDT [address] [address] [address] Scan Report Signed Patient: Bharathi Walsh#: [id number] : 1945 Acct:[id number] Age/Sex: 78 / M ADM Date: 12/22/23 Loc: HO.CT Attending Dr: Tc Castillo MD Ordering Physician: Tc Castillo MD Date of Service: 12/22/23 Procedure(s): CT lung screening Accession Number(s): [id number] cc: Tc Castillo MD; Bridgette Fagan MD [...] for CT CHEST LOW DOSE CANCER SCREENING ([id number]) can be placed. Dictated By: Kun Enciso MD Signed By: <Electronically signed by Kun Enciso MD in OV> 12/27/23 2336 DD/ 0958 TD/TT: Daytime Caregiver: SS Procedure Note Donotuseinterpreter, Image - 12/27/[address] [address] [address] Scan Report Signed Patient: Shalom Walsh R#: [id number] : 6Acct:[id number] Age/Sex: 78 / MADM Date: 12/22/23 Loc: HO.CT Attending Dr: Tc Castillo MD Ordering Physician: Tc Castillo MD Date of Service: 12/22/23 Procedure(s): CT lung screening Accession Number(s): [id number] cc: Tc Castillo MD; Bridgette Fagan MD [...] for CT CHEST LOW DOSE CANCER SCREENING ([id number]) can be placed. Dictated By: Kun Enciso MD Signed By: <Electronically signed by Kun Enciso MD in OV> 12/27/23 2336 DD/ 0958 TD/TT: Daytime Caregiver: [facility] External Provider IMG CT PROCEDURES Edited [...] 08/15/2025 Patient has chronic kidney disease 08/15/2025 Insurance [facility] DUAL COMPLETE * Guarantor: Piter AngelBharathi barrios Account Type Relation to Patient Date of Phone Billing Address Dental Self [address] [place] [address] DENTAL - [facility] * Guarantor: Bharathi Walsh Account Type Relation to Patient Date of Phone Billing Address Personal/Family Self [address] [place] [address] * Guarantor: Bharathi Walsh Account Type Relation to Patient Date of Phone Billing Address Personal/Family Self [address] [place] [address] * Guarantor: Bharathi Walsh Account Type Relation to Patient Date of Phone Billing Address Personal/Family Self [address] [place] [address] Care Teams School Cook Relationship Specialty Start Date End Date Bridgette Fagan MD [address] [place] [address] PCP - General Family Medicine 07/01/12 Ramón Bolaños, MollyD [address] [place], [place] Pharmacist Internal Medicine 11/18/23
--- OUTSIDE RECORDS SUMMARY | 2025-08-16 09:01 | XMS_ITS | Encounter Summary ---
Author Organization [employer] Address [address] [facility] 7t [place] [address] Care Team Providers Care Beam Carrier Hauler Pusher Name Role Phone Bridgette Gandhi MD Primary Care Provider Ramón Bolaños PharmD Unavailable Encounter Details Date Type Department Care Team (Late st Contact Info) Description 08/04/2025 Orders Only [facility] [address] [place], [place] [phone] Bridgette Gandhi MD [address] [place], [place] [phone] Hypertension, unspecified type (Primary Dx); Dyslipidemia; Controlled [...] Description 08/21/2025 11:00 AM EST Office Visit [facility] [address] [place] [address] Bridgette Gandhi MD [address] [place] [address] Scheduled Orders Name Type Priority Associated Diagnoses [...] Gandhi MD documented as of this encounter Procedures Procedure Name Priority Date/Time Associated Diagnosis Comments XR CHEST 2 VIEWS Routine 08/11/2025 11:4 4 AM EST documented in this encounter Results * XR Chest 2 Views (08/11/2025 11:44 AM EST) Anatomical Region Laterality Modality Chest Radiographic Ines ging 08/11/2025 11:4 4 AM EST Narrative 08/11/2025 12:14 PM EST [facility] Adult Primary Care [address] [place] [address] [place] [address] XRay Report Signed Patient: Bharathi Walsh R#: [id number] : 1945 Acct:[id number] Age/Sex: 79 / M ADM Date: 08/11/25 Loc: [facility]X Attending Dr: Sue Montero MD Ordering Physician: Sue Montero MD Date of Service: 08/11/25 Procedure(s): XR chest 2V Accession Number(s): [id number] cc: Sue Montero MD; Bridgette Gandhi MD Reason for Exam: R05.9 - Cough, [...] 08/11/25 1211 DD/ 1144 TD/TT: 08/11/25 1145 Ship Runner: SILVIA Procedure Note Donotuseinterpreter, Image - 08/11/2025 [facility] Adult Primary Care [facility] [place] [address] XRay Report Signed Patient: Shalom Walsh R#: [id number] : 6Acct:[id number] Age/Sex: 79 / MADM Date: 08/11/25 [facility] Dr: Sue Montero MD Ordering Physician: Sue Montero MD Date of Service: 08/11/25 Procedure(s): XR chest 2V Accession Number(s): [id number] cc: Sue Montero MD; Bridgette Gandhi MD Reason for Exam: R05.9 - Cough, unspecified EXAMINATION: XR CHEST CLINICAL INFORMATION: R05.9 - Cough, unspecified COMPARISON: Chest x-ray 04/07/2024 TECHNIQUE: 2 views of the chest were obtained. FINDINGS: No significant abnormality is noted involving the heart, lungs, mediastinum, bony thorax or soft tissues. XR/XR chest 2V IMPRESSION: Unremarkable chest examination. Electronically signed by: Sunil Escalante MD 08/11/2025 12:11 PM [facility] [place] [place] Dictated By: Sunil Escalante MD Signed By: <Electronically signed by Sunil Escalante MD in OV> 08/11/25 1211 DD/ 1144 TD/TT: 08/11/25 1145 Ship Runner: SILVIA [facility] External Provider IMG XR PROCEDURES Edited Result - Final documented in this encounter Visit Diagnoses Diagnosis Hypertension, unspecified type- Primary Dyslipidemia Other and unspecified hyperlipidemia Controlled type 2 diabetes mellitus without complication, without long-term current use of insulin (HCC) Memory difficulties Memory loss Anemia, unspecified type [...] Time PHQ-9 Depression Total Score: 4 05/03/20 10:42 AM EDT documented as of this encounter Care Teams Beam Carrier Hauler Pusher Relationship Specialty Start Date End Date Bridgette Gandhi MD [address] [place] [address] PCP - General Family Medicine 07/01/12 Ramón Bolaños, Bradley [address] [place] [address] Pharmacist Internal Medicine 11/18/23 documented as of this encounter
--- OUTSIDE RECORDS SUMMARY | 2025-08-16 09:01 | XMS_ITS | Encounter Summary ---
Author Organization [employer] Address [address] [facility] 7t [place] [address] Care Team Providers Care Starbucks Barista Name Role Phone Bridgette Gandhi MD Primary Care Provider [phone] Ramón Bolaños PharmD Unavailable [phone] Reason for Visit * Reason Onset Date Comments Referral 08/27/2023 Encounter Details Date Type Department Care Team (Late st Contact Info) Description 08/27/2023 Telephone [facility] MEDICINE [address] [place], [place] [phone] Bridgette Gandhi MD [address] [place], [place] [phone] Referral Social History Tobacco Use Types Packs/Day [...] 08/27/2023 1:13 PM EST TC from pt's daughter/PAINTER ROUGH requesting a renewal of Referral Date of original referral: 09/11/23 Location: [facility] (unsure of exact location) Date: 09/03/23 Time: 3:15 Fax: N/A Specialty: Orthopedic documented in this encounter Plan of Treatment Upcoming Encounters Date Type Department Care Team (Late st Contact Info) Description 08/21/2025 11:00 AM EST Office Visit [facility] [address] [place] [address] Bridgette Gandhi MD [address] [place] [address] documented as of this encounter Visit Diagnoses Not on filedocumented in this encounter Additional Health Concerns Assessment Noted Time PHQ-9 Depression Total Score: 5 09/11/19 23 10:25 AM EST documented as of this encounter Care Teams Starbucks Barista Relationship Specialty Start Date End Date Bridgette Gandhi MD [address] [place] [address] [phone] PCP - General Family Medicine 07/01/12 Ramón Bolaños, MollyD [address] [place] [address] Pharmacist Internal Medicine 11/18/23 documented as of this encounter
--- OUTSIDE RECORDS SUMMARY | 2025-08-16 09:01 | XMS_ITS | Encounter Summary ---
Demographics Address [address] [facility] [address] [place] [address] Mobile Phone Home Phone Work Phone Preferred Language es Marital Status Evangelical Affiliation Unknown Race Other Race Ethnic Group Unknown Author Organization [employer] Address [address] [facility] 7t [place] [address] Care Team Providers Care Epilepsy Physician Name Role Phone Bridgette Gandhi MD Primary Care Provider [phone] Ramón Bolaños PharmD Unavailable Reason for Referral * Consultation (Routine) - Closed Specialty Diagnoses / Procedures Referred By Jj bro Referred To Contact Orthopaedic Surgery Diagnoses Primary osteoarthritis of both hips Primary osteoarthritis of both knees Bridgette Gandhi MD [address] [place] [address] Phone: tel: fax: [facility] [address] [place] [address] Dr [address] [place] [address] Phone: tel: fax: Referral ID Status Reason Start Date Expiration Date V isits Requested Visits Authorized [id number] Closed Specialty Services Required 02/23/2024 02/22/2025 1 1 Encounter Details Date Type Department Care Team (Late st Contact Info) Description 02/23/2024 Orders Only [facility] MEDICINE [address] [place] [address] Bridgette Gandhi MD [address] [place], [place] [phone] Primary osteoarthritis of both hips (Primary Dx); [...] Upcoming Encounters Date Type Department Care Team ([facility] st Contact Info) Description 08/21/2025 11:00 AM EST Office Visit [facility] MED[facility] [address] [place] [address] Bridgette Gandhi MD [address] [place] [phone] Scheduled Referrals Name Type Priority Associated Diagnoses [...] documented as of this encounter Care Teams Epilepsy Physician Relationship Specialty Start Date End Date Bridgette Gandhi MD [address] [place] [address] PCP - General Family Medicine 07/01/12 Ramón Bolaños, Bradley [address] [place] [phone] Pharmacist Internal Medicine 11/18/23 documented as of this encounter
--- OUTSIDE RECORDS SUMMARY | 2025-08-16 09:01 | XMS_ITS | Encounter Summary ---
Author Organization [employer] Address [address] [facility] 7t [place] [address] Care Team Providers Care General Production Laborer Name Role Phone Bridgette Gandhi MD Primary Care Provider Ramón Bolaños PharmD Unavailable Encounter Details Date Type Department Care Team (Late Contact Info) Description 04/30/2023 Abstract [facility] MEDICINE [address] [place] [phone] Bridgette Gandhi MD [address] [place] [address] [phone] Social History Tobacco Use Types Packs/Day Years [...] Description 08/21/2025 11:00 AM EST Office Visit [facility] MED[facility] [address] [place] [address] Bridgette Gandhi MD [address] [place] [address] documented as of this encounter Procedures Procedure [...] documented as of this encounter Care Teams General Production Laborer Relationship Specialty Start Date End Date Bridgette Gandhi MD [address] [place] [address] PCP - General Family Medicine 07/01/12 Ramón Bolaños, PharmD [address] [place] [phone] Pharmacist Internal Medicine 11/18/23 documented as of this encounter
--- OUTSIDE RECORDS SUMMARY | 2025-08-16 09:01 | XMS_ITS | Encounter Summary ---
Author Organization [employer] Address [address] [facility] [address] [place] [address] Care Team Providers Care Play Writer Name Role Phone Bridgette Gandhi MD Primary Care Provider [phone] Ramón Bolaños PharmD Unavailable [phone] Reason for Visit * Reason Comments Med Refill Encounter Details Date Type Department Care Team (Late st Contact Info) Description 06/07/2023 Refill [facility] [address] [place], [place] [phone] Bridgette Gandhi MD [address] [place], [place] [phone] Social History Tobacco Use Types Packs/Day Years [...] Description 08/21/2025 11:00 AM EST Office Visit [facility] MED[facility] [address] [place] [address] Bridgette Gandhi MD [address] [place] [address] documented as of this encounter Visit Diagnoses Not on filedocumented in this encounter Additional Health Concerns Assessment Noted Time PHQ-9 Depression Total Score: 5 09/11/19 23 10:25 AM EST documented as of this encounter Care Teams Play Writer Relationship Specialty Start Date End Date Bridgette Gandhi MD [address] [place] [address] PCP - General Family Medicine 07/01/12 Ramón Bolaños, MollyD [address] [place] [phone] Pharmacist Internal Medicine 11/18/23 documented as of this encounter
--- OUTSIDE RECORDS SUMMARY | 2025-08-16 09:01 | XMS_ITS | Encounter Summary ---
Author Organization [employer] Address [address] [facility] 7t [place] [address] Care Team Providers Care Adolescent Psychiatrist Name Role Phone Bridgette Gandhi MD Primary Care Provider [phone] Ramón Bolaños PharmD Unavailable [phone] Reason for Visit * Reason Comments Med Refill Encounter Details Date Type Department Care Team (Late st Contact Info) Description 03/10/2024 Refill [facility] [address] [place], [place] [phone] Bridgette Gandhi MD [address] [place], [place] [phone] Social History Tobacco Use Types Packs/Day Years [...] Visit [facility] MED[facility]INE [address] [place] [address] Bridgette Gandhi MD [address] [place] [address] documented as of this encounter Goals Goal [...] documented as of this encounter Care Teams Adolescent Psychiatrist Relationship Specialty Start Date End Date Bridgette Gandhi MD [address] [place] [address] PCP - General Family Medicine 07/01/12 Ramón Bolaños, PharmD [address] [place] [address] [place] [address] Pharmacist Internal Medicine 11/18/23 documented as of this encounter
[2025-08-16 11:32] LABS: MANUAL DIFF FLAG NO
[2025-08-16 11:44] LABS: Hematocrit 45.1 % (42.0-52.0); Hemoglobin 14.8 g/dl (14.0-18.0); Imm Gran Abs Auto 0.05 X10*3/uL (0.00-0.03); Imm Gran Pct Auto 0.6 % (0.0-0.4); Lymphocytes Absolute Auto 2.3 X10*3/uL (1.2-4.9); Mean Corpuscular HGB Conc 32.8 g/dl (31.0-36.0); Mean Corpuscular Hemoglobin 30.3 pg (27.0-33.0); Mean Corpuscular Volume 92.2 fL (80.0-98.0); NRBC Abs Auto 0.000 X10*3/uL (0.0-0.012); NRBC Pct Auto 0.0 /100WBC (0.0-0.2); Platelet Count 165 X10*3/uL (160-400); Red Blood Count 4.89 X10*6/uL (4.60-5.80); Reticulocytes Absolute 0.053 X10*6/uL (0.026-0.095); White Blood Count 8.7 X10*3/uL (4.8-10.8)
[2025-08-16 12:05] LABS: Alanine Aminotransferase 22 U/L (0-40); Albumin Level 4.4 g/dL (3.5-5.0); Alkaline Phosphatase 85 U/L (39-117); Anion Gap 12 (12-20); Aspartate Amino Transferase 25 U/L (5-37); Blood Urea Nitrogen 19 mg/dL (9-16); Calcium 9.8 mg/dL (8.4-10.2); Carbon Dioxide 29 mmol/L (22-29); Chloride 106 mmol/L (96-108); Cholesterol 121 mg/dL (<200); Estimated Glomerular Filt Rate > 60; HDL Cholesterol 32 mg/dL (>40); Iron 126 mcg/dL (45-160); Percent Iron Saturation 59 % (15-50); Potassium 4.0 mmol/L (3.3-5.1); Sodium 143 mmol/L (135-145); Total Iron Binding Capacity 214 mcg/dL (228-428); Total Protein 7.4 g/dL (6.5-8.0); Triglycerides 123 mg/dL (<150); Unsaturated Iron Binding 88 ug/dL
[2025-08-16 12:21] LABS: Ferritin 476 ng/mL (20-250)
[2025-08-16 12:33] LABS: Folate 10.0 ng/mL (> or = 4.0); Vitamin B12 261 pg/mL (200-900)
[2025-08-16 12:43] LABS: Microalbum/Creatinine Ratio Ur 6.5 ug/mg cr (<30)
[2025-08-16 20:52] LABS: Reflex LDLD? No
== END 2025-08-16 08:55 | disposition home or self-care (01) ==
LOC: HO.HHCL 08:54
PROVIDERS: PCP Family Medicine; Visit Provider Family Medicine
DX: E11.9 Type 2 diabetes mellitus without complications (principal); I10 Essential (primary) hypertension; D64.9 Anemia, unspecified; E78.5 Hyperlipidemia, unspecified; R41.3 Other amnesia
CPT/HCPCS: 36415; 80053; 80061; 82043; 82570; 82607; 82728; 82746; 83540; 84443; 85025; 85045